=== PATIENT | male | born 1935 | race Caucasian/White ===

== ENCOUNTER 2017-10-03 18:14 | Inpatient (IN) ==
[2017-10-03] MEDS ORDERED: Sod Chloride 0.9% Inj 1,000 ML IV.SIG ONE ×2 (18:31→23:44)
[2017-10-03] MEDS ORDERED: Naloxone Inj 2 MG/2 ML Vial ONE (18:54)
[2017-10-03 19:30] LABS: Activated Partial Thrombo Time 26.8 sec (24.3-30.1); INR 2.3 Ratio; Prothrombin Time 23.5 sec (9.8-11.6)
[2017-10-03 19:40] LABS: Amphetamine Screen,Urine Neg (Neg); Barbiturate Screen,Urine Neg (Neg); Cannabinoid Screen,Urine Neg (Neg); Cocaine Screen,Urine Neg (Neg)
[2017-10-03 19:47] LABS: Amorphous Sediment,Urine Few /hpf; Bacteria,Urine Occasional /hpf; Bilirubin,Urine Negative (Negative); Clarity,Urine Cloudy (Clear); Color,Urine Amber (Yellw/Straw); Glucose,Urine (UA) 50 mg/dL (Negative); Hyaline Casts,Urine INNUM /lpf (0-3); Leukocyte Esterase,Urine Negative (Negative); Mucus,Urine Few /lpf (Occasional); Nitrite,Urine Negative (Negative); Specific Gravity,Urine 1.019 (1.002-1.035); Squamous Epithelial Cell,Urine 1 /hpf (0-5)
--- NOTE | 2017-10-03 19:47 | CT ---
EXAM DATE: 10/03/2017 7:38 PM EDT AGE/SEX: 89 years / Male INDICATIONS: Altered mental status. Found on floor. CLINICAL DATA: This is the patient's initial encounter. Patient reports that signs and symptoms have been present for 1 day and indicates a pain score of Nonresponsive. MEDICAL/SURGICAL HISTORY: Non-responsive. Non-responsive. RADIATION DOSE: 45.65 CTDI (mGy) COMPARISON: No prior exams available for comparison. TECHNIQUE: CT of the head without contrast. Using automated exposure control and adjustment of the mA and/or kV according to patient size, radiation dose was kept as low as reasonably achievable to ob tain optimal diagnostic quality images. DICOM format image data is available electronically for revi ew and comparison. FINDINGS: There is moderate motion on the original scan and a second acquisition was performed which demonstrates motion at different levels. The study is diagnostic for gross abnormalities. Cerebrum: The ventricles, sulci, and basal cisterns are prominent, characteristic of moderate severi ty central and cortical atrophy.. No evidence of midline shift, mass lesion, hemorrhage or acute inf arction. No extraaxial fluid collections are seen. Posterior Fossa: The cerebellum and brainstem are intact. The 4th ventricle is midline. The cerebe llopontine angle is unremarkable. Extracranial: The visualized portion of the orbits is intact. Skull: The calvaria is intact. No evidence of skull fracture. CONCLUSION: 1. Moderate moderate severity central cortical atrophy. No acute findings in the brain. . Electronically signed by: Fili Killian MD 10/03/2017 7:46 PM EDT
[2017-10-03 19:53] LABS: Alanine Aminotransferase 1898 U/L (12-78); Albumin 3.6 g/dL (3.4-5.0); Alkaline Phosphatase 33 U/L (45-117); Anion Gap 22 meq/L (5-15); Aspartate Aminotransferase 2566 U/L (15-37); Blood Urea Nitrogen 67 mg/dL (7-18); Calcium 8.7 mg/dL (8.5-10.1); Carbon Dioxide 13.4 meq/L (21.0-32.0); Chloride 112 meq/L (98-107); Creatine Kinase 777 U/L (39-308); Glomerular Filtration Rate 20 mL/min (>89); Glucose,Random 85 mg/dL (74-106); Potassium 5.1 meq/L (3.5-5.1); Sodium 147 meq/L (136-145); Thyroid Stimulating Hormone 0.768 uIU/mL (0.358-3.740); Total Protein 6.3 g/dL (6.4-8.2)
[2017-10-03 19:54] LABS: Opiate Screen,Urine Neg (Neg)
--- NOTE | 2017-10-03 20:04 | CT ---
EXAM DATE: 10/03/2017 7:47 PM EDT AGE/SEX: 89 years / Male INDICATIONS: Altered mental status. Found on floor. CLINICAL DATA: This is the patient's initial encounter. Patient reports that signs and symptoms have been present for 1 day and indicates a pain score of Nonresponsive. MEDICAL/SURGICAL HISTORY: Non-responsive. Non-responsive. RADIATION DOSE: 12.65 CTDI (mGy) ; Combined studies COMPARISON: No prior exams available for comparison. TECHNIQUE: Multiple contiguous axial images were obtained through the abdomen. Images were obtained using multiple row detector helical technique. Using automated exposure control and adjustment of the mA and/or kV according to patient size, radiation dose was kept as low as reasonably achievable to o btain optimal diagnostic quality images. DICOM format image data is available electronically for rev iew and comparison. FINDINGS: Lower Lungs: Bilateral pleural effusions, large on the right and small on the left. Liver: The liver has a homogeneous density without space-occupying lesion for noncontrast technique. There is no dilation of the biliary tree. Spleen: Homogeneous density without enlargement. Pancreas: Unremarkable without mass or calcification. Kidneys: Nonobstructing 4 mm stone lower pole on the right side. No evidence of hydronephrosis. 1.5 cm right upper pole cyst. On the left side, there are multiple varying size cysts, the largest of whi ch measures 6.6 cm. There is a thin curvilinear calcification within the wall of one of the cysts (Inocencio sniak 2) Adrenal Glands: Unremarkable. Aorta: Saccular infrarenal abdominal aortic aneurysm measuring 3.7 cm in AP dimension. Soft tissues about the aorta are intact. There are diffuse arteriosclerotic calcifications the wall of the aorta and iliac vessels Bowel/Mesentery: No dilated loops of small or large bowel. Multiple diverticula in the sigmoid colon . No evidence of free fluid. Abdominal Wall: Intact. Retroperitoneum: No evidence of adenopathy in the retrocrural, para-aortic, or deep pelvic regions. Bladder: Alberto catheter in nondistended bladder. Reproductive Organs: No abnormal masses or calcifications seen. Inguinal: Small fat-containing left inguinal hernia. Bony Structures: Unremarkable. CONCLUSION: 1. Bilateral pleural effusions, right greater than left. 2. Nonobstructing 4 mm stone in the right renal collecting system. 3. 3.7 cm infrarenal abdominal aortic aneurysm. 4. Small fat-containing left inguinal hernia. Electronically signed by: Fili Kililan MD 10/03/2017 8:03 PM EDT
[2017-10-03 20:06] LABS: CKMB Percent 1.6 % (0.0-4.0); Creatine Kinase MB 12.3 ng/mL (0.5-3.6)
--- NOTE | 2017-10-03 20:08 | CT ---
EXAM DATE: 10/03/2017 7:46 PM EDT AGE/SEX: 89 years / Male INDICATIONS: Altered mental status. Found on floor. CLINICAL DATA: This is the patient's initial encounter. Patient reports that signs and symptoms have been present for 1 day and indicates a pain score of Nonresponsive. MEDICAL/SURGICAL HISTORY: Non-responsive. Non-responsive. RADIATION DOSE: 26.65 CTDI (mGy) COMPARISON: No prior exams available for comparison. TECHNIQUE: Contiguous axial images were obtained using helical multirow detector technique. The vol umetric data was post-processed with multiplanar reconstruction in oblique axial, sagittal, and coron al planes. Using automated exposure control and adjustment of the mA and/or kV according to patient s ize, radiation dose was kept as low as reasonably achievable to obtain optimal diagnostic quality tawnya ges. DICOM format image data is available electronically for review and comparison. FINDINGS: There is hyperextension of the cervical lordosis. Vertebral body height is maintained. Spondylolisthe sis. There is advanced hypertrophic changes in the facet joints of the mid and lower cervical spine, right more severe than left. No evidence of locked or perched facets. The atlantoaxial articulation i s intact.. C2-3: No fracture seen. The neural foramina are patent. C3-4: No fracture seen. Severe bilateral bony neural foraminal stenosis. C4-5: No fracture seen. Severe right-sided bony neural foraminal stenosis. C5-6: No fracture seen. The neural foramina are patent. C6-7: No fracture seen. The neural foramina are patent. C7-T1: No fracture seen. The neural foramina are patent. CONCLUSION: 1. No evidence of compression deformity, fracture, or spondylolisthesis. 2. Advanced hypertrophic degenerative changes in the facet joints, more severe on the right. Electronically signed by: Fili Killian MD 10/03/2017 8:07 PM EDT
[2017-10-03 20:13] LABS: Troponin I 6.68 ng/mL (0.02-0.05)
--- NOTE | 2017-10-03 20:28 | CT ---
EXAM DATE: 10/03/2017 7:47 PM EDT AGE/SEX: 89 years / Male INDICATIONS: Altered mental status. Found on floor. CLINICAL DATA: This is the patient's initial encounter. Patient reports that signs and symptoms have been present for 1 day and indicates a pain score of Nonresponsive. MEDICAL/SURGICAL HISTORY: Non-responsive. Non-responsive. RADIATION DOSE: 12.65 CTDI (mGy) ; Combined studies COMPARISON: No prior exams available for comparison. TECHNIQUE: Multiple contiguous axial images were obtained through the chest without contrast. Image s were obtained in suspended respiration using multiple row detector helical technique. Using automa elías exposure control and adjustment of the mA and/or kV according to patient size, radiation dose was kept as low as reasonably achievable to obtain optimal diagnostic quality images. DICOM format imag e data is available electronically for review and comparison. FINDINGS: Lungs: No infiltrates or masses seen. There is marked 2 calcified granuloma in the lower right lung, the larger measuring 5 mm. No evidence of pneumothorax. Mediastinum: There is good visualization of the great vessels of the middle mediastinum. No evidenc e of mediastinal or hilar adenopathy/mass. Pleurae: There is a large right pleural effusion extending from base to apex measuring 5.2 cm in AP dimension. There is a small left pleural effusion with blunting of the costophrenic angle and extendi ng into the mid chest measuring up to 11 mm in AP dimension. Axillae: Unremarkable. Bony Structures: No fractures seen. Moderate severity degenerative changes in both sternoclavicular joints, right greater than left with vacuum phenomenon on the right side.. Miscellaneous: There are a few small flecks of gas in the soft tissues posterior to the medial clavic les bilaterally. CONCLUSION: 1. Large right and small left pleural effusion. 2. No fracture seen. No evidence of pneumothorax. Electronically signed by: Fili Killian MD 10/03/2017 8:26 PM EDT
--- NOTE | 2017-10-03 20:32 | XR ---
EXAM DATE: 10/03/2017 8:17 PM EDT AGE/SEX: 89 years / Male INDICATIONS: Trauma to chest post fall today CLINICAL DATA: This is the patient's initial encounter. Patient reports that signs and symptoms have been present for 1 day and indicates a pain score of Nonresponsive. MEDICAL/SURGICAL HISTORY: Non-responsive. Non-responsive. COMPARISON: No prior exams available for comparison. FINDINGS: There is prominent opacity in the lateral one half of the right chest extending from base to apex sug gestive of a large right pleural effusion. There is no blunting of the costophrenic angle however. In the left chest, there is loss of delineation left hemidiaphragm. The patient is rotated towards the left and the configuration of the mediastinum is appropriate for such. 2 calcifications project over the right mid chest. CONCLUSION: Large right pleural effusion. Parenchymal opacity at the left base could represent pleural effusion o r consolidation. No pneumothorax seen. Electronically signed by: Fili Killian MD 10/03/2017 8:31 PM EDT
--- NOTE | 2017-10-03 20:33 | XR ---
EXAM DATE: 10/03/2017 8:18 PM EDT AGE/SEX: 89 years / Male INDICATIONS: Right hip pain post fall today CLINICAL DATA: This is the patient's initial encounter. Patient reports that signs and symptoms have been present for 1 day and indicates a pain score of Nonresponsive. MEDICAL/SURGICAL HISTORY: Non-responsive. Non-responsive. COMPARISON: No prior exams available for comparison. FINDINGS: 2 view examination of the right hip demonstrates intact cortex and intact trabecula pattern of the fe moral neck. Mild degenerative changes are present in the hip joint. No radiopaque foreign bodies. CONCLUSION: No fracture seen. Electronically signed by: Fili Killian MD 10/03/2017 8:31 PM EDT
--- NOTE | 2017-10-03 20:35 | XR ---
EXAM DATE: 10/03/2017 8:23 PM EDT AGE/SEX: 89 years / Male INDICATIONS: Trauma to lower back post fall today CLINICAL DATA: This is the patient's initial encounter. Patient reports that signs and symptoms have been present for 1 day and indicates a pain score of Nonresponsive. MEDICAL/SURGICAL HISTORY: Non-responsive. Non-responsive. COMPARISON: No prior exams available for comparison. FINDINGS: Abnormal. There is a 60% compression deformity of the anterior one half of the L2 vertebral body with angulated inferior endplate. There is reversal of the lumbar lordosis at the L1-L3 level, but no ret ropulsed fragments seen. The left pedicle is not identified on the frontal view. No other compression deformities seen. Bridging paravertebral ossification is present at T12-L1 and L1 to. Moderate sever ity degenerative changes in the posterior elements and endplates in the lower lumbar spine. Vascular calcification is seen in the aorta and iliac vessels. CONCLUSION: 60% anterior compression fracture of L2. No retropulsed fragments seen. Electronically signed by: Fili Killian MD 10/03/2017 8:33 PM EDT
--- NOTE | 2017-10-03 20:38 | XR ---
EXAM DATE: 10/03/2017 8:19 PM EDT AGE/SEX: 89 years / Male INDICATIONS: Bruising to right elbow post fall today CLINICAL DATA: This is the patient's initial encounter. Patient reports that signs and symptoms have been present for 1 day and indicates a pain score of Nonresponsive. MEDICAL/SURGICAL HISTORY: Non-responsive. Non-responsive. COMPARISON: No prior exams available for comparison. FINDINGS: Bony structures are intact and in normal alignment. Joints are intact without dislocation or signifi cant arthropathy. No fractures about the elbow. No evidence of elbow effusion. Osseous density is no rmal. Soft tissues are unremarkable. No radiopaque foreign bodies seen. Angiocath in the antecubita l fossa. CONCLUSION: There is discontinuity of the tip of a small olecranon spur without soft tissue swelling. Cannot excl ude a fracture. Recommend correlation with clinical exam for point tenderness in this area. Electronically signed by: Fili Killian MD 10/03/2017 8:37 PM EDT
[2017-10-03 20:55] LABS: Baso % (Auto) 0.1 % (0.0-2.0); Hemoglobin 15.3 gm/dL (13.0-17.0); Lymph # (Auto) 0.6 th/mm3 (1.0-4.8); Lymph % (Auto) 4.6 % (9.0-44.0); Mean Corpuscular HGB Conc 31.9 % (32.0-36.0); Mean Corpuscular Volume 97.3 fL (80.0-100.0); Mean Platelet Volume 11.7 fL (7.0-11.0); Mono # (Auto) 1.3 th/mm3 (0.0-0.9); Mono % (Auto) 10.3 % (0.0-8.0); Neut # (Auto) 10.9 th/mm3 (1.8-7.7); Platelet Count 60 th/mm3 (150-450); Red Blood Count 4.94 mil/mm3 (4.50-5.90); Red Cell Distribution Width 15.7 % (11.6-17.2); White Blood Count 12.8 th/mm3 (4.0-11.0)
[2017-10-03 21:43] LABS: Lymphocytes 3 % (9-44); Monocytes 7 % (0-8); Toxic Granulation 2+
[2017-10-03 21:45] LABS: Ovalocytes 1+; Spherocytes Occ
--- NOTE | 2017-10-03 22:13 | ED ---
HPI General Chief Complaint: Altered Mental Status Stated Complaint: AMS Time Seen by Provider: 10/03/17 18:31 Source: EMS and RN notes reviewed Mode of arrival: EMS Limitations: altered mental status History of Present Illness HPI narrative: The patient is an elderly male of unknown medical history arrived as Mario Schmidt after he was found in his apartment with his door open and unresponsive laying on the floor with bumps and bruises on head and upper and lower extremities as well as the right hip area. Patient was unresponsive initially and does respond to boisterous voice commands as well as sternal rub but is incoherent and appears to be severely dehydrated. He denied any pain however again he is altered. MD complaint: altered mental status Onset (ago): unknown Related Data Home Medications Medication Instructions Recorded Confirmed Unable to Obtain Home Meds 10/03/17 10/03/17 Allergies Allergy/AdvReac Type Severity Reaction Status Date / Time No Allergy Information Allergy Unverified 10/03/17 18:31 Available Review of Systems ROS Unobtainable ROS Unobtainable: unobtainable due to mental status PMFSH Social History Social History Substance History: Unable to Obtain Smoking Status: Unknown if ever smoked How Often Do You Have a Drink Containing Alcohol: Unable to Obtain Immunization History Tetanus Immunization: Unable to Assess Exam Const Nutritional Appearance: cachectic Orientation: obtunded Limitations: altered mental status HENMT Head: other (Head contusion with scab on top of the scalp.) Face and sinus: dry mucous membranes Eyes General: appearance normal, both eyes and all related structures Pupils: PERRL EOM: EOM intact bilaterally Neck Neck: normal visual inspection and full ROM Chest Chest: normal inspection of the chest Resp Effort & Inspection: no pursed lip breathing, no respiratory distress, no stridor, tachypneic, no tracheal deviation and no use of accessory muscles Auscultation: clear to auscultation bilaterally Cardio Jugular venous pressure: no JVD Palpation: normal PMI Rate: tachycardic Rhythm: regular rhythm Heart Sounds: S1 normal and S2 normal GI Inspection: normal to inspection Palpation: soft and no hepatosplenomegaly Auscultation: normal bowel sounds Rectal Exam: normal sphincter tone Back/Spine/Pelvis Thoracic/Lumbar Spine: other (Ecchymosis over the lumbar spine) Skin Other: Multiple excoriations and bruises on upper and lower extremities. He has got a small skin tear on left forearm. Right elbow with abrasions. Contusion and soft tissue swelling on right hip area and ecchymosis of the lumbar spine abrasion and wounds at the various healing stages on top of his scalp and posterior scalp Neuro Other: Unable to fully assess neurologically however the patient appears to move all extremities without signs of focal neurologic deficit. He does open eyes and tries to respond to voice commands however his responses are incoherent. Course Hospital Course: Patient with altered mental status meeting service/Q sulfa criteria on arrival. Septic workup was initiated. CT of the head was obtained due to altered mental status and was negative for intracranial acute processes. He does have small left and right pleural effusions on CT chest without any other abnormalities. CT abdomen and pelvis was obtained and revealed a compression fraction at L2. 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 Right elbow with equivocal findings for possible olecranon spur versus fracture. He has got a markedly elevated lactate at 8.3 and repeat was 6.5. Troponin also elevated at 6.8. Worrisome findings on EKG for possible STEMI that was discussed with interventional cardiology adult nurse practitioner appears to be a ventricular delay. EKG was repeated and was unremarkable. Markedly elevated BUN at 67 and AK I with a creatinine of 2.7. He received several liters of normal saline. Patient in multiorgan failure with elevated creatinine, elevated troponin, elevated liver enzymes, elevated lactate. He is not a candidate for cardiac cath we cannot give him aspirin nor put him on heparin due to low platelets. Reevaluation(s) Reevaluation #1: Patient hemodynamically stable mentation still at unchanged but he does open eyes and tries to respond to questions. Time: 19:59 Reevaluation #2: Hemodynamically stable blood pressure 130/84 pulse is 100. Patient does respond to voice command but he is incoherent. Time: 22:13 Consultations Consultation #1: Dr. Jaimes cardiology was consulted. Findings discussed. Patient is not a candidate for a cardiac labor operator and he does not have a STEMI however he does have elevated troponin he cannot receive aspirin old heparin due to elevated PT and low platelets as per territory sales manager consultation. will admit to the ICU continue hydration and antibiotics. Time: 22:12 Consultation #2: Pipe Testing Technician agrees with plan of care will lead to admit the patient. Time: 22:20 Initial Documented Vital Signs Temperature 99.1 F 10/03/17 18:31 Pulse Rate 111 H 10/03/17 18:31 Respiratory Rate 20 10/03/17 18:31 Blood Pressure 128/57 L 10/03/17 18:31 Pulse Oximetry 98 10/03/17 18:31 Last Documented Vital Signs Temperature 98.4 F 10/04/17 03:00 Pulse Rate 88 10/04/17 03:00 Respiratory Rate 31 H 10/04/17 04:00 Blood Pressure 124/83 10/04/17 03:00 Pulse Oximetry 98 10/04/17 03:00 Critical Care Time Critical Care Time: Yes Total Critical Care Time: 60 Attestation: Aggregate critical care time was [-] minutes. Time to perform other separately billable procedures was not included in the critical care time. My time did not include minutes spent treating any other patients simultaneously or on activities that did not directly contribute to the patient's treatment. The services I provided to this patient were to treat and/or prevent clinically significant deterioration that could result in: Cardiopulmonary collapse , respiratory failure , liver failure permanent disability and/or I provided critical care services requiring my management, as noted below: Chart data review, documentation time, medication orders and management, vital sign assessments/reviewing monitor data, ordering and reviewing lab tests, ordering and interpreting/reviewing x-rays and diagnostic studies, care of the patient and discussion of the patient with the admitting physicians. Medical Decision Making MDM Narrative Medical Screen Exam Complete: Yes Emergency Medical Condition: Yes Lab Data Lab results reviewed: Yes I reviewed the patient's lab results. Result diagrams: 10/03/17 19:25 10/03/17 18:45 Lab Results 10/03/17 10/03/17 10/03/17 Range/Units 18:45 18:45 18:45 WBC (4.0-11.0) th/mm3 RBC (4.50-5.90) mil/mm3 Hgb (13.0-17.0) gm/dL Hct (39.0-51.0) % MCV (80.0-100.0) fL MCH (27.0-34.0) pg MCHC (32.0-36.0) % RDW (11.6-17.2) % Plt Count (150-450) th/mm3 MPV (7.0-11.0) fL Prelim Diff (Auto) Neut % (Auto) (16.0-70.0) % Lymph % (Auto) (9.0-44.0) % Fallon % (Auto) (0.0-8.0) % Eos % (Auto) (0.0-4.0) % Baso % (Auto) (0.0-2.0) % Neut # (Auto) (1.8-7.7) th/mm3 Lymph # (Auto) (1.0-4.8) th/mm3 Fallon # (Auto) (0.0-0.9) th/mm3 Eos # (Auto) (0.0-0.4) th/mm3 Baso # (Auto) (0.0-0.2) th/mm3 WBC Differential Seg Neuts % (Manual) (16-70) % Band Neuts % (Manual) (0-6) % Lymphocytes % (Manual) (9-44) % Monocytes % (Manual) (0-8) % Abs Neuts (Manual) (1.8-7.7) th/mm3 Differential Comment Toxic Granulation (None) Platelet Estimate (Normal) Platelet Morphology (Normal) Basophilic Stippling (None) Spherocytes (None) Ovalocytes (None) PT 23.5 H (9.8-11.6) sec INR 2.3 Ratio APTT 26.8 (24.3-30.1) sec Puncture Site Patient Temperature O2 Saturation (90-100) % ABG pH (7.380-7.420) ABG pCO2 (38-42) mmHg ABG pO2 (61-120) mmHg ABG HCO3 (22-26) mmol/L ABG O2 Content (12.0-20.0) Vol % ABG Base Excess (-2-2) mmol/L ABG Methemoglobin (0-2) % Hemoglobin (12.0-16.0) G/DL Carboxyhemoglobin (0-4) % O2 Delivery Device Liter Flow L/M Critical Value Sodium (136-145) meq/L Potassium (3.5-5.1) meq/L Chloride (98-107) meq/L Carbon Dioxide (21.0-32.0) meq/L Anion Gap (5-15) meq/L BUN (7-18) mg/dL Creatinine (0.60-1.30) mg/dL Estimated GFR (>89) mL/min POC Glucose (68-110) mg/dl Random Glucose (74-106) mg/dL Lactic Acid (0.4-2.0) mmol/L Calcium (8.5-10.1) mg/dL Total Bilirubin (0.2-1.0) mg/dL AST (15-37) U/L ALT (12-78) U/L Alkaline Phosphatase (45-117) U/L Ammonia (11-32) mcmol/L Total Creatine Kinase (39-308) U/L CK-MB (CK-2) (0.5-3.6) ng/mL CK-MB (CK-2) % (0.0-4.0) % Troponin I (0.02-0.05) ng/mL Total Protein (6.4-8.2) g/dL Albumin (3.4-5.0) g/dL TSH Cancelled Urine Color (Yellw/Straw) Urine Clarity (Clear) Urine pH (5.0-8.5) Ur Specific Diagonal (1.002-1.035) Urine Protein (Neg-Trace) mg/dL Urine Glucose (UA) (Negative) mg/dL Urine Ketones (Negative) mg/dL Urine Occult Blood (Negative) Urine Nitrate (Negative) Urine Bilirubin (Negative) Urine Urobilinogen (Less than 2) mg/dL Ur Leukocyte Esterase (Negative) Urine RBC (0-3) /hpf Urine WBC (0-5) /hpf Ur Squamous Epith Cells (0-5) /hpf Amorphous Sediment (None) /hpf Urine Bacteria (None) /hpf Hyaline Casts (0-3) /lpf Granular Casts (None) /lpf Urine Mucus (Occasional) /lpf Micro UA Comment Ur Microscopic Review Urine Culture Comments Salicylates Less than 1.7 L (2.8-20.0) mg/dL Urine Opiates Screen (Neg) Ur Barbiturates Screen (Neg) Ur Amphetamines Screen (Neg) U Benzodiazepines Scrn (Neg) Urine Cocaine Screen (Neg) U Cannabinoids Screen (Neg) Serum Alcohol Cancelled Blood Type Antibody Screen 10/03/17 10/03/17 10/03/17 Range/Units 18:45 18:45 18:45 WBC (4.0-11.0) th/mm3 RBC (4.50-5.90) mil/mm3 Hgb (13.0-17.0) gm/dL Hct (39.0-51.0) % MCV (80.0-100.0) fL MCH (27.0-34.0) pg MCHC (32.0-36.0) % RDW (11.6-17.2) % Plt Count (150-450) th/mm3 MPV (7.0-11.0) fL Prelim Diff (Auto) Neut % (Auto) (16.0-70.0) % Lymph % (Auto) (9.0-44.0) % Fallon % (Auto) (0.0-8.0) % Eos % (Auto) (0.0-4.0) % Baso % (Auto) (0.0-2.0) % Neut # (Auto) (1.8-7.7) th/mm3 Lymph # (Auto) (1.0-4.8) th/mm3 Fallon # (Auto) (0.0-0.9) th/mm3 Eos # (Auto) (0.0-0.4) th/mm3 Baso # (Auto) (0.0-0.2) th/mm3 WBC Differential Seg Neuts % (Manual) (16-70) % Band Neuts % (Manual) (0-6) % Lymphocytes % (Manual) (9-44) % Monocytes % (Manual) (0-8) % Abs Neuts (Manual) (1.8-7.7) th/mm3 Differential Comment Toxic Granulation (None) Platelet Estimate (Normal) Platelet Morphology (Normal) Basophilic Stippling (None) Spherocytes (None) Ovalocytes (None) PT (9.8-11.6) sec INR Ratio APTT (24.3-30.1) sec Puncture Site Patient Temperature O2 Saturation (90-100) % ABG pH (7.380-7.420) ABG pCO2 (38-42) mmHg ABG pO2 (61-120) mmHg ABG HCO3 (22-26) mmol/L ABG O2 Content (12.0-20.0) Vol % ABG Base Excess (-2-2) mmol/L ABG Methemoglobin (0-2) % Hemoglobin (12.0-16.0) G/DL Carboxyhemoglobin (0-4) % O2 Delivery Device Liter Flow L/M Critical Value Sodium 147 H (136-145) meq/L Potassium 5.1 (3.5-5.1) meq/L Chloride 112 H (98-107) meq/L Carbon Dioxide 13.4 L (21.0-32.0) meq/L Anion Gap 22 H (5-15) meq/L BUN 67 H (7-18) mg/dL Creatinine 2.71 H (0.60-1.30) mg/dL Estimated GFR 20 L (>89) mL/min POC Glucose (68-110) mg/dl Random Glucose 85 (74-106) mg/dL Lactic Acid (0.4-2.0) mmol/L Calcium 8.7 (8.5-10.1) mg/dL Total Bilirubin 3.3 H (0.2-1.0) mg/dL AST 2566 H (15-37) U/L ALT 1898 H (12-78) U/L Alkaline Phosphatase 33 L (45-117) U/L Ammonia (11-32) mcmol/L Total Creatine Kinase 777 H Cancelled (39-308) U/L CK-MB (CK-2) 12.3 H (0.5-3.6) ng/mL CK-MB (CK-2) % 1.6 (0.0-4.0) % Troponin I 6.68 H* (0.02-0.05) ng/mL Total Protein 6.3 L (6.4-8.2) g/dL Albumin 3.6 (3.4-5.0) g/dL TSH 0.768 Urine Color (Yellw/Straw) Urine Clarity (Clear) Urine pH (5.0-8.5) Ur Specific Diagonal (1.002-1.035) Urine Protein (Neg-Trace) mg/dL Urine Glucose (UA) (Negative) mg/dL Urine Ketones (Negative) mg/dL Urine Occult Blood (Negative) Urine Nitrate (Negative) Urine Bilirubin (Negative) Urine Urobilinogen (Less than 2) mg/dL Ur Leukocyte Esterase (Negative) Urine RBC (0-3) /hpf Urine WBC (0-5) /hpf Ur Squamous Epith Cells (0-5) /hpf Amorphous Sediment (None) /hpf Urine Bacteria (None) /hpf Hyaline Casts (0-3) /lpf Granular Casts (None) /lpf Urine Mucus (Occasional) /lpf Micro UA Comment Ur Microscopic Review Urine Culture Comments Salicylates (2.8-20.0) mg/dL Urine Opiates Screen (Neg) Ur Barbiturates Screen (Neg) Ur Amphetamines Screen (Neg) U Benzodiazepines Scrn (Neg) Urine Cocaine Screen (Neg) U Cannabinoids Screen (Neg) Serum Alcohol Less than 3 Blood Type B Positive Antibody Screen Negative 10/03/17 10/03/17 10/03/17 Range/Units 18:50 18:50 19:00 WBC (4.0-11.0) th/mm3 RBC (4.50-5.90) mil/mm3 Hgb (13.0-17.0) gm/dL Hct (39.0-51.0) % MCV (80.0-100.0) fL MCH (27.0-34.0) pg MCHC (32.0-36.0) % RDW (11.6-17.2) % Plt Count (150-450) th/mm3 MPV (7.0-11.0) fL Prelim Diff (Auto) Neut % (Auto) (16.0-70.0) % Lymph % (Auto) (9.0-44.0) % Fallon % (Auto) (0.0-8.0) % Eos % (Auto) (0.0-4.0) % Baso % (Auto) (0.0-2.0) % Neut # (Auto) (1.8-7.7) th/mm3 Lymph # (Auto) (1.0-4.8) th/mm3 Fallon # (Auto) (0.0-0.9) th/mm3 Eos # (Auto) (0.0-0.4) th/mm3 Baso # (Auto) (0.0-0.2) th/mm3 WBC Differential Seg Neuts % (Manual) (16-70) % Band Neuts % (Manual) (0-6) % Lymphocytes % (Manual) (9-44) % Monocytes % (Manual) (0-8) % Abs Neuts (Manual) (1.8-7.7) th/mm3 Differential Comment Toxic Granulation (None) Platelet Estimate (Normal) Platelet Morphology (Normal) Basophilic Stippling (None) Spherocytes (None) Ovalocytes (None) PT (9.8-11.6) sec INR Ratio APTT (24.3-30.1) sec Puncture Site Patient Temperature O2 Saturation (90-100) % ABG pH (7.380-7.420) ABG pCO2 (38-42) mmHg ABG pO2 (61-120) mmHg ABG HCO3 (22-26) mmol/L ABG O2 Content (12.0-20.0) Vol % ABG Base Excess (-2-2) mmol/L ABG Methemoglobin (0-2) % Hemoglobin (12.0-16.0) G/DL Carboxyhemoglobin (0-4) % O2 Delivery Device Liter Flow L/M Critical Value Sodium (136-145) meq/L Potassium (3.5-5.1) meq/L Chloride (98-107) meq/L Carbon Dioxide (21.0-32.0) meq/L Anion Gap (5-15) meq/L BUN (7-18) mg/dL Creatinine (0.60-1.30) mg/dL Estimated GFR (>89) mL/min POC Glucose (68-110) mg/dl Random Glucose (74-106) mg/dL Lactic Acid 8.3 H* (0.4-2.0) mmol/L Calcium (8.5-10.1) mg/dL Total Bilirubin (0.2-1.0) mg/dL AST (15-37) U/L ALT (12-78) U/L Alkaline Phosphatase (45-117) U/L Ammonia 29 (11-32) mcmol/L Total Creatine Kinase (39-308) U/L CK-MB (CK-2) (0.5-3.6) ng/mL CK-MB (CK-2) % (0.0-4.0) % Troponin I (0.02-0.05) ng/mL Total Protein (6.4-8.2) g/dL Albumin (3.4-5.0) g/dL TSH Urine Color Dee (Yellw/Straw) Urine Clarity Cloudy H (Clear) Urine pH 5.0 (5.0-8.5) Ur Specific Diagonal 1.019 (1.002-1.035) Urine Protein 100 H (Neg-Trace) mg/dL Urine Glucose (UA) 50 (Negative) mg/dL Urine Ketones Negative (Negative) mg/dL Urine Occult Blood Moderate H (Negative) Urine Nitrate Negative (Negative) Urine Bilirubin Negative (Negative) Urine Urobilinogen Less than 2 (Less than 2) mg/dL Ur Leukocyte Esterase Negative (Negative) Urine RBC 2 (0-3) /hpf Urine WBC 4 (0-5) /hpf Ur Squamous Epith Cells 1 (0-5) /hpf Amorphous Sediment Few H (None) /hpf Urine Bacteria Occasional H (None) /hpf Hyaline Casts Innum (0-3) /lpf Granular Casts 13 (None) /lpf Urine Mucus Few H (Occasional) /lpf Micro UA Comment Cath-culture ind Ur Microscopic Review Not Reportable Urine Culture Comments Cath-cult indicated Salicylates (2.8-20.0) mg/dL Urine Opiates Screen (Neg) Ur Barbiturates Screen (Neg) Ur Amphetamines Screen (Neg) U Benzodiazepines Scrn (Neg) Urine Cocaine Screen (Neg) U Cannabinoids Screen (Neg) Serum Alcohol Blood Type Antibody Screen 10/03/17 10/03/17 10/03/17 Range/Units 19:00 19:25 23:05 WBC 12.8 H (4.0-11.0) th/mm3 RBC 4.94 (4.50-5.90) mil/mm3 Hgb 15.3 (13.0-17.0) gm/dL Hct 48.0 (39.0-51.0) % MCV 97.3 (80.0-100.0) fL MCH 31.0 (27.0-34.0) pg MCHC 31.9 L (32.0-36.0) % RDW 15.7 (11.6-17.2) % Plt Count 60 L (150-450) th/mm3 MPV 11.7 H (7.0-11.0) fL Prelim Diff (Auto) Slide review pending Neut % (Auto) 85.0 H (16.0-70.0) % Lymph % (Auto) 4.6 L (9.0-44.0) % Fallon % (Auto) 10.3 H (0.0-8.0) % Eos % (Auto) 0.0 (0.0-4.0) % Baso % (Auto) 0.1 (0.0-2.0) % Neut # (Auto) 10.9 H (1.8-7.7) th/mm3 Lymph # (Auto) 0.6 L (1.0-4.8) th/mm3 Fallon # (Auto) 1.3 H (0.0-0.9) th/mm3 Eos # (Auto) 0.0 (0.0-0.4) th/mm3 Baso # (Auto) 0.0 (0.0-0.2) th/mm3 WBC Differential Manual diff final Seg Neuts % (Manual) 87 H (16-70) % Band Neuts % (Manual) 3 (0-6) % Lymphocytes % (Manual) 3 L (9-44) % Monocytes % (Manual) 7 (0-8) % Abs Neuts (Manual) 11.5 H (1.8-7.7) th/mm3 Differential Comment . Toxic Granulation 2+ H (None) Platelet Estimate Low L (Normal) Platelet Morphology Enlarged H (Normal) Basophilic Stippling Faint H (None) Spherocytes Occ H (None) Ovalocytes 1+ H (None) PT (9.8-11.6) sec INR Ratio APTT (24.3-30.1) sec Puncture Site Patient Temperature O2 Saturation (90-100) % ABG pH (7.380-7.420) ABG pCO2 (38-42) mmHg ABG pO2 (61-120) mmHg ABG HCO3 (22-26) mmol/L ABG O2 Content (12.0-20.0) Vol % ABG Base Excess (-2-2) mmol/L ABG Methemoglobin (0-2) % Hemoglobin (12.0-16.0) G/DL Carboxyhemoglobin (0-4) % O2 Delivery Device Liter Flow L/M Critical Value Sodium (136-145) meq/L Potassium (3.5-5.1) meq/L Chloride (98-107) meq/L Carbon Dioxide (21.0-32.0) meq/L Anion Gap (5-15) meq/L BUN (7-18) mg/dL Creatinine (0.60-1.30) mg/dL Estimated GFR (>89) mL/min POC Glucose (68-110) mg/dl Random Glucose (74-106) mg/dL Lactic Acid 6.9 H* (0.4-2.0) mmol/L Calcium (8.5-10.1) mg/dL Total Bilirubin (0.2-1.0) mg/dL AST (15-37) U/L ALT (12-78) U/L Alkaline Phosphatase (45-117) U/L Ammonia (11-32) mcmol/L Total Creatine Kinase (39-308) U/L CK-MB (CK-2) (0.5-3.6) ng/mL CK-MB (CK-2) % (0.0-4.0) % Troponin I (0.02-0.05) ng/mL Total Protein (6.4-8.2) g/dL Albumin (3.4-5.0) g/dL TSH Urine Color (Yellw/Straw) Urine Clarity (Clear) Urine pH (5.0-8.5) Ur Specific Diagonal (1.002-1.035) Urine Protein (Neg-Trace) mg/dL Urine Glucose (UA) (Negative) mg/dL Urine Ketones (Negative) mg/dL Urine Occult Blood (Negative) Urine Nitrate (Negative) Urine Bilirubin (Negative) Urine Urobilinogen (Less than 2) mg/dL Ur Leukocyte Esterase (Negative) Urine RBC (0-3) /hpf Urine WBC (0-5) /hpf Ur Squamous Epith Cells (0-5) /hpf Amorphous Sediment (None) /hpf Urine Bacteria (None) /hpf Hyaline Casts (0-3) /lpf Granular Casts (None) /lpf Urine Mucus (Occasional) /lpf Micro UA Comment Ur Microscopic Review Urine Culture Comments Salicylates (2.8-20.0) mg/dL Urine Opiates Screen Neg (Neg) Ur Barbiturates Screen Neg (Neg) Ur Amphetamines Screen Neg (Neg) U Benzodiazepines Scrn Neg (Neg) Urine Cocaine Screen Neg (Neg) U Cannabinoids Screen Neg (Neg) Serum Alcohol Blood Type Antibody Screen 08/22/18 08/23/18 08/23/18 Range/Units 23:51 00:31 02:17 WBC (4.0-11.0) th/mm3 RBC (4.50-5.90) mil/mm3 Hgb (13.0-17.0) gm/dL Hct (39.0-51.0) % MCV (80.0-100.0) fL MCH (27.0-34.0) pg MCHC (32.0-36.0) % RDW (11.6-17.2) % Plt Count (150-450) th/mm3 MPV (7.0-11.0) fL Prelim Diff (Auto) Neut % (Auto) (16.0-70.0) % Lymph % (Auto) (9.0-44.0) % Fallon % (Auto) (0.0-8.0) % Eos % (Auto) (0.0-4.0) % Baso % (Auto) (0.0-2.0) % Neut # (Auto) (1.8-7.7) th/mm3 Lymph # (Auto) (1.0-4.8) th/mm3 Fallon # (Auto) (0.0-0.9) th/mm3 Eos # (Auto) (0.0-0.4) th/mm3 Baso # (Auto) (0.0-0.2) th/mm3 WBC Differential Seg Neuts % (Manual) (16-70) % Band Neuts % (Manual) (0-6) % Lymphocytes % (Manual) (9-44) % Monocytes % (Manual) (0-8) % Abs Neuts (Manual) (1.8-7.7) th/mm3 Differential Comment Toxic Granulation (None) Platelet Estimate (Normal) Platelet Morphology (Normal) Basophilic Stippling (None) Spherocytes (None) Ovalocytes (None) PT (9.8-11.6) sec INR Ratio APTT (24.3-30.1) sec Puncture Site Right brachial Patient Temperature 98.6 O2 Saturation 94 (90-100) % ABG pH 7.32 L (7.380-7.420) ABG pCO2 24 L* (38-42) mmHg ABG pO2 100 (61-120) mmHg ABG HCO3 12 L* (22-26) mmol/L ABG O2 Content 21.0 H (12.0-20.0) Vol % ABG Base Excess -13.3 L (-2-2) mmol/L ABG Methemoglobin 0.6 (0-2) % Hemoglobin 15.8 (12.0-16.0) G/DL Carboxyhemoglobin 0.5 (0-4) % O2 Delivery Device Nasal cannula Liter Flow 6.00 L/M Critical Value Yes Sodium (136-145) meq/L Potassium (3.5-5.1) meq/L Chloride (98-107) meq/L Carbon Dioxide (21.0-32.0) meq/L Anion Gap (5-15) meq/L BUN (7-18) mg/dL Creatinine (0.60-1.30) mg/dL Estimated GFR (>89) mL/min POC Glucose 112 H (68-110) mg/dl Random Glucose (74-106) mg/dL Lactic Acid (0.4-2.0) mmol/L Calcium (8.5-10.1) mg/dL Total Bilirubin (0.2-1.0) mg/dL AST (15-37) U/L ALT (12-78) U/L Alkaline Phosphatase (45-117) U/L Ammonia (11-32) mcmol/L Total Creatine Kinase (39-308) U/L CK-MB (CK-2) (0.5-3.6) ng/mL CK-MB (CK-2) % (0.0-4.0) % Troponin I 5.30 H* (0.02-0.05) ng/mL Total Protein (6.4-8.2) g/dL Albumin (3.4-5.0) g/dL TSH Urine Color (Yellw/Straw) Urine Clarity (Clear) Urine pH (5.0-8.5) Ur Specific Diagonal (1.002-1.035) Urine Protein (Neg-Trace) mg/dL Urine Glucose (UA) (Negative) mg/dL Urine Ketones (Negative) mg/dL Urine Occult Blood (Negative) Urine Nitrate (Negative) Urine Bilirubin (Negative) Urine Urobilinogen (Less than 2) mg/dL Ur Leukocyte Esterase (Negative) Urine RBC (0-3) /hpf Urine WBC (0-5) /hpf Ur Squamous Epith Cells (0-5) /hpf Amorphous Sediment (None) /hpf Urine Bacteria (None) /hpf Hyaline Casts (0-3) /lpf Granular Casts (None) /lpf Urine Mucus (Occasional) /lpf Micro UA Comment Ur Microscopic Review Urine Culture Comments Salicylates (2.8-20.0) mg/dL Urine Opiates Screen (Neg) Ur Barbiturates Screen (Neg) Ur Amphetamines Screen (Neg) U Benzodiazepines Scrn (Neg) Urine Cocaine Screen (Neg) U Cannabinoids Screen (Neg) Serum Alcohol Blood Type Antibody Screen Imaging Data Radiologist's impression: Chest X-Ray 10/03/17 18:31 CONCLUSION: Large right pleural effusion. Parenchymal opacity at the left base could represent pleural effusion or consolidation. No pneumothorax seen. Elbow X-Ray 10/03/17 18:31 CONCLUSION: There is discontinuity of the tip of a small olecranon spur without soft tissue swelling. Cannot exclude a fracture. Recommend correlation with clinical exam for point tenderness in this area. Hip X-Ray 10/03/17 18:31 CONCLUSION: No fracture seen. Lumbar Spine X-Ray 10/03/17 18:31 CONCLUSION: 60% anterior compression fracture of L2. No retropulsed fragments seen. Cervical Spine CT 10/03/17 18:35 CONCLUSION: 1. No evidence of compression deformity, fracture, or spondylolisthesis. 2. Advanced hypertrophic degenerative changes in the facet joints, more severe on the right. Head CT 10/03/17 18:35 CONCLUSION: 1. Moderate moderate severity central cortical atrophy. No acute findings in the brain. . Abdomen/Pelvis CT 10/03/17 18:38 CONCLUSION: 1. Bilateral pleural effusions, right greater than left. 2. Nonobstructing 4 mm stone in the right renal collecting system. 3. 3.7 cm infrarenal abdominal aortic aneurysm. 4. Small fat-containing left inguinal hernia. Chest CT 10/03/17 18:38 CONCLUSION: 1. Large right and small left pleural effusion. 2. No fracture seen. No evidence of pneumothorax. ECG Data Attestation: I personally reviewed and interpreted this ECG as follows: Discharge Plan Discharge Disposition Patient Disposition: 30 Still Patient Discharge Condition Condition: Critical Discharge Details Diagnosis: Toxic metabolic encephalopathy, Septic shock, Transaminitis, NSTEMI (non-ST elevated myocardial infarction), Thrombocytopenia, DIC (disseminated intravascular coagulation), Renal failure Physicians Team ED Provider: Chris Kumari Primary Care Provider: UNKNOWN, Attending Provider: Usha Martin Other Providers: Jon Jaimes ; Gurvinder Chavez Discharge Interventions Interventions: ED Discharge Assessment Last Done: 10/04/17 02:01 Vital Signs Last Done: 10/03/17 23:00 Status ED Status: Left Department Discharge Information Discharge Date/Time: 10/04/17 02:03
[2017-10-03] MEDS ORDERED: Bisacodyl 10 MG Supp RECTAL PRN (22:21)
[2017-10-03] MEDS ORDERED: Acetaminophen 325 MG Tablet PO PRN (22:21)
[2017-10-03] MEDS ORDERED: Sod Chloride 0.9% Inj 1,000 ML IV.CONT SCH (23:00)
[2017-10-03] MEDS ORDERED: Vancomycin Inj 1,000 MG in Sodium Chlor 0.9% Inj 250 ML IV.SIG ONE (23:43)
[2017-10-03] MEDS ORDERED: Sodium Bicarbonate 8.4% Inj 50 MEQ/50 ML Syringe IV.PUSH ONE (23:47)
--- NOTE | 2017-10-03 23:52 | P.HPCC ---
History of Present Illness Primary Care Physician: UNKNOWN Chief Complaint: Altered mental status, septic shock History of Present Illness: Patient is an elderly male with unknown past medical history who was found on the floor of his apartment with door open. Apparently neighbors checked on him and found him unresponsive on the floor. Patient was brought to the emergency department and underwent extensive workup to rule out trauma. CT of the head showed moderate to severe atrophy, CT of the chest showed moderate right-sided and small left effusion. 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 X-ray of his right elbow showed a possible olecranon spur discontinuity. Multiple lab abnormalities white count was 12.8 with 87% neutrophils platelet count 60 INR was 2.3. UA showed evidence of UTI, patient received a dose of cefepime for severe sepsis. Also his troponin was elevated at 6.8, lactic acid was 8.3 BUN 67 creatinine 2.71. Patient received 2 L normal saline boluses. Dr. Jaimes from cardiology was contacted for an STEMI. Due to poor mentation and multiorgan failure patient was deemed not a candidate for cardiac catheterization. Cannot use aspirin or heparin due to platelet count of 60,000 INR of 2.3. Other abnormal labs included transaminitis and elevated CPK. I evaluated the patient in the emergency department. He is severely encephalopathic appears critical, tachypneic but protecting airway. He is not able to say his name or mouth any words. He continues to move his head side to side but not communicative. I have added additional 2 L normal saline bolus, give 2 A of bicarb. Check ABG. Broad-spectrum antibiotics with vancomycin 1 dose and renally dosed Zosyn. Patient is very critically ill and has multiorgan failure, overall prognosis appears very poor - Diagnosis (1) Toxic metabolic encephalopathy (2) Septic shock (3) UTI (urinary tract infection) (4) Transaminitis (5) NSTEMI (non-ST elevated myocardial infarction) (6) Thrombocytopenia (7) DIC (disseminated intravascular coagulation) (8) Renal failure Review of Systems unobtainable due to mental condition PMFSH - History History Provided By: Patient - Medical / Surgical Hx Neg / Unobtainable Medical Problems Denied: Unable to Obtain - Tobacco History Smoking Status: Unknown if ever smoked - Alcohol History How Often Do You Have a Drink Containing Alcohol: Unable to Obtain - Substance Use History Substance History: Unable to Obtain - Immunization History Tetanus Immunization: Unable to Assess Medications and Allergies Active Medications: Active Medications Acetaminophen (Tylenol) 650 mg PO Q6H PRN PRN Reason: PAIN 1-10 AND/OR FEVER >101F Al Hydroxide/Mg Hydroxide (Milk Of Magnesia Liq) 30 ml PO Q12H PRN PRN Reason: Mild Constipation Albuterol (Duoneb Neb (Prn)) 1 ampul NEB Q2HR NEB PRN PRN Reason: WHEEZING Bisacodyl (Dulcolax Supp) 10 mg RECTAL DAILY PRN PRN Reason: SEVERE CONSITIPATION Chlorhexidine Gluconate (Chlorhexidine 2% Cloth) 3 pack TOPICAL DAILY@0400 JIGNA Stop: 10/09/17 03:59 Chlorhexidine Gluconate (Chlorhexidine 2% Cloth) 3 pack TOPICAL DAILY@0400 PRN PRN Reason: Extra cloth needed Stop: 10/09/17 03:59 Famotidine (Pepcid Pf Inj) 10 mg IV.PUSH Q12HR JIGNA Sodium Chloride (Ns Inj) 1,000 mls @ 84 mls/hr IV.CONT .[id number] JIGNA Last Admin: 10/03/17 23:33 Dose: 84 mls/hr Piperacillin/Tazobactam/Dextrose (Zosyn 3.375 Gm Premix) 50 mls @ 100 mls/hr IV.SIG Q8H JIGNA Vancomycin HCl 1,000 mg/ (Sodium Chloride) 250 mls @ 250 mls/hr IV.SIG ONCE ONE Stop: 10/04/17 00:42 Sodium Chloride (Ns Inj) 1,000 mls @ 0 mls/hr IV.SIG BOLUS ONE Stop: 10/03/17 23:45 Lactulose (Lactulose Liq) 30 ml PO DAILY PRN PRN Reason: SEVERE CONSITIPATION Senna/Docusate Sodium (Brigette-Colace) 1 tab PO BID [facility] Sennosides (Senokot) 17.2 mg PO Q12H PRN PRN Reason: Moderate Constipation Sodium Chloride (Ns Flush) 2 ml IV.FLUSH BID JIGNA Sodium Chloride (Ns Flush) 2 ml IV.FLUSH PRN PRN PRN Reason: FLUSH AFTER USING IV ACCESS Allergies Allergy/AdvReac Type Severity Reaction Status Date / Time No Allergy Information Allergy Unverified 10/03/17 18:31 Available Home Medications Medication Instructions Recorded Confirmed Type Unable to Obtain Home Meds 10/03/17 10/03/17 History Results - Labs CBC & Chem 7: 10/03/17 19:25 10/03/17 18:45 Labs: Short CBC 10/03/17 Range/Units 19:25 WBC 12.8 H (4.0-11.0) th/mm3 Hgb 15.3 (13.0-17.0) gm/dL Hct 48.0 (39.0-51.0) % Plt Count 60 L (150-450) th/mm3 BMP 10/03/17 18:45 Sodium 147 H Potassium 5.1 Chloride 112 H Carbon Dioxide 13.4 L BUN 67 H Creatinine 2.71 H Calcium 8.7 Cardiac Enzymes 10/03/17 10/03/17 Range/Units 18:45 18:45 Total Creatine Kinase 777 H Cancelled (39-308) U/L CK-MB (CK-2) 12.3 H (0.5-3.6) ng/mL Troponin I 6.68 H* (0.02-0.05) ng/mL Liver Function 10/03/17 Range/Units 18:45 Total Bilirubin 3.3 H (0.2-1.0) mg/dL AST 2566 H (15-37) U/L ALT 1898 H (12-78) U/L Alkaline Phosphatase 33 L (45-117) U/L Albumin 3.6 (3.4-5.0) g/dL Urine 10/03/17 Range/Units 19:00 Urine Color Dee (Yellw/Straw) Urine Clarity Cloudy H (Clear) Urine pH 5.0 (5.0-8.5) Ur Specific [place] 1.019 (1.002-1.035) Urine Protein 100 H (Neg-Trace) mg/dL Urine Glucose (UA) 50 (Negative) mg/dL - Imaging Impressions Chest X-Ray 10/03/17 18:31 CONCLUSION: Large right pleural effusion. Parenchymal opacity at the left base could represent pleural effusion or consolidation. No pneumothorax seen. Elbow X-Ray 10/03/17 18:31 CONCLUSION: There is discontinuity of the tip of a small olecranon spur without soft tissue swelling. Cannot exclude a fracture. Recommend correlation with clinical exam for point tenderness in this area. Hip X-Ray 10/03/17 18:31 CONCLUSION: No fracture seen. Lumbar Spine X-Ray 10/03/17 18:31 CONCLUSION: 60% anterior compression fracture of L2. No retropulsed fragments seen. Cervical Spine CT 10/03/17 18:35 CONCLUSION: 1. No evidence of compression deformity, fracture, or spondylolisthesis. 2. Advanced hypertrophic degenerative changes in the facet joints, more severe on the right. Head CT 10/03/17 18:35 CONCLUSION: 1. Moderate moderate severity central cortical atrophy. No acute findings in the brain. . Abdomen/Pelvis CT 10/03/17 18:38 CONCLUSION: 1. Bilateral pleural effusions, right greater than left. 2. Nonobstructing 4 mm stone in the right renal collecting system. 3. 3.7 cm infrarenal abdominal aortic aneurysm. 4. Small fat-containing left inguinal hernia. Chest CT 10/03/17 18:38 CONCLUSION: 1. Large right and small left pleural effusion. 2. No fracture seen. No evidence of pneumothorax. Exam Vital signs: Vital Signs 10/03/17 18:31 10/03/17 19:10 10/03/17 20:27 Temperature 99.1 F Pulse Rate 111 H 100 H 103 H Respiratory Rate 20 28 H 28 H Blood Pressure 128/57 L 147/71 H 130/76 Pulse Oximetry 98 95 95 10/03/17 21:26 10/03/17 23:00 Temperature Pulse Rate 101 H 99 H Respiratory Rate 30 H 24 Blood Pressure 130/84 124/67 Pulse Oximetry 98 98 Intake & Output 10/03/17 10/03/17 10/04/17 06:59 18:59 06:59 Weight 58.967 kg Narrative: GENERAL: Elderly poorly nourished disheveled male who is lying on ER gurney agitated tachypneic HEENT: Normocephalic. Atraumatic. Pupils equal, round, protecting airway NECK: Trachea is midline. There is no JVD. CHEST: Patient is tachypneic however good oxygen saturation. Air entry diminished bilaterally with scattered rhonchi CARDIOVASCULAR: Tachycardic S1-S2 normal no murmurs ABDOMEN: Soft, nontender, nondistended. MUSCULOSKELETAL: 2+ peripheral edema. Poorly perfused NEUROLOGICAL: Critically ill-appearing. His eyes are open spontaneously but appears agitated. He is thrashing his head side to side. Moves all extremities nonfocal exam but do not follow commands or does not mouth any words Septic Shock Reassessment Septic shock perfusion: reassessment completed Caprini VTE Risk Assessment Caprini VTE Risk Assessment: Moderate/High Risk (score >= 2) Caprini Risk Assessment Model: Point Value = 1 Point Value = 2 Point Value = 3 Point Value = 5 Age 41-60 Minor surgery BMI > 25 kg/m2 Swollen legs Varicose veins or History of unexplained or recurrent spontaneous Oral contraceptives or hormone replacement Sepsis (< 1 month) Serious lung disease, including pneumonia (< 1 month) Abnormal pulmonary function Acute myocardial infarction Congestive heart failure (< 1 month) History of inflammatory bowel disease Medical patient at bed rest Age 61-74 Arthroscopic surgery Major open surgery (> 45 min) Laparoscopic surgery (> 45 min) Malignancy Confined to bed (> 72 hours) Immobilizing plaster cast Central venous access Age >= 75 History of VTE Family history of VTE Factor V Leiden Prothrombin [id number] Lupus anticoagulant Anticardiolipin antibodies Elevated serum homocysteine Heparin-induced thrombocytopenia Other congenital or acquired thrombophilia Stroke (< 1 month) Elective arthroplasty Hip, pelvis, or leg fracture Acute spinal cord injury (< 1 month) Prophylaxis Regimen: Total Risk Factor Score Risk Level Prophylaxis Regimen 0-1 Low Early ambulation 2 Moderate Order ONE of the following: *Sequential Compression Device (SCD) *Heparin 5000 units SQ BID 3-4 Higher Order ONE of the following medications: *Heparin 5000 units SQ TID *Enoxaparin/Lovenox 40 mg SQ daily (WT < 150 kg, CrCl > 30 mL/min) *Enoxaparin/Lovenox 30 mg SQ daily (WT < 150 kg, CrCl > 10-29 mL/min) *Enoxaparin/Lovenox 30 mg SQ BID (WT < 150 kg, CrCl > 30 mL/min) AND/OR *Sequential Compression Device (SCD) 5 or more Highest Order ONE of the following medications: *Heparin 5000 units SQ TID (Preferred with Epidurals) *Enoxaparin/Lovenox 40 mg SQ daily (WT < 150 kg, CrCl > 30 mL/min) *Enoxaparin/Lovenox 30 mg SQ daily (WT < 150 kg, CrCl > 10-29 mL/min) *Enoxaparin/Lovenox 30 mg SQ BID (WT < 150 kg, CrCl > 30 mL/min) AND *Sequential Compression Device (SCD) Assessment and Plan - Problem List (1) Toxic metabolic encephalopathy Code(s): G92 - Toxic encephalopathy Status: Acute (2) Septic shock Code(s): A41.9 - Sepsis, unspecified organism; R65.21 - Severe sepsis with septic shock Status: Acute (3) UTI (urinary tract infection) Code(s): N39.0 - Urinary tract infection, site not specified Status: Acute (4) Transaminitis Code(s): R74.0 - Nonspecific elevation of levels of transaminase and lactic acid dehydrogenase [LDH] Status: Acute (5) NSTEMI (non-ST elevated myocardial infarction) Code(s): I21.4 - Non-ST elevation (NSTEMI) myocardial infarction Status: Acute (6) Thrombocytopenia Code(s): D69.6 - Thrombocytopenia, unspecified Status: Acute (7) DIC (disseminated intravascular coagulation) Code(s): D65 - Disseminated intravascular coagulation [defibrination syndrome] Status: Acute (8) Renal failure Code(s): N19 - Unspecified kidney failure Status: Acute - Assessment and Plan Plan: NEURO: Toxic metabolic encephalopathy L2 compression deformity/acuity unknown -Severe metabolic encephalopathy multifactorial -CT head shows moderate to severe atrophy no acute findings -Patient most likely has underlying dementia -I will not consult neurosurgery at this time due to overall very poor prognosis -Check B12 RESP: Respiratory insufficiency Severe metabolic acidosis Moderate to large right-sided effusion -ABG is pending, 2 Amps of bicarb given -DuoNeb every 6 hours scheduled and as needed -Patient has moderate to large right-sided effusion, and possibly underlying pneumonia -Unable to do thoracentesis at this time due to thrombocytopenia and coagulopathy -Aggressive pulmonary toilet CV: STEMI Lactic acidosis -Normal saline IV fluids 3L bolus and 84 ml per hour -Cardiology consult Dr. Jaimes, serial troponin. Patient is not a candidate for cardiac catheterization or PCI -Unable to use aspirin or heparin due to thrombocytopenia and coagulopathy, start IV metoprolol 2.5 mg every 6 hours -Trend lactic acid GI: Transaminitis -N.p.o., IV famotidine -Transaminitis secondary to shock liver -Ammonia level normal : Renal failure unclear acute or chronic -Monitor renal function closely. Place Alberto catheter. -IV hydration as above -2 Amps of bicarb given -Nephrology consult only if creatinine not improving ID: Septic shock Probable pneumonia UTI -Antibiotics with 1 dose of vancomycin and renally dosed Zosyn -Blood urine and sputum cultures -May need thoracentesis and further studies once coagulopathy and platelets are improved HEME: Thrombocytopenia/coagulopathy/DIC -Monitor CBC, coags -Transfuse blood products and blood as needed-currently no indication ENDO: -Electrolyte replacement per protocol PROPH: -Bilateral lower extremity SCDs. Avoid chemical DVT prophylaxis. Famotidine IV for GI prophylaxis LINES: -Utilize peripheral IVs, central line if needed CC time 55 min
[2017-10-04 00:12] LABS: ABG Base Excess -13.3 mmol/L (-2-2); ABG PCO2 24 mmHg (38-42); ABG PO2 100 mmHg (61-120)
[2017-10-04] MEDS: Metoprolol Inj 5 MG/5 ML Vial IV.PUSH SCH ×4 (00:40→17:53)
[2017-10-04] MEDS: Piperacil/Tazo 3.375 GM Premix 50 ML IV.SIG SCH ×3 (00:40→16:10)
[2017-10-04] MEDS ORDERED: Sodium Bicarbonate 8.4% Inj 150 MEQ in Dextrose 5% in Water Inj 850 ML IV.CONT SCH ×2 (01:00)
[2017-10-04] MEDS ORDERED: Chlorhexidine Gluconate 2% 1 Pack (2 Cloths) TOPICAL PRN (04:00)
[2017-10-04] MEDS: Chlorhexidine Gluconate 2% 1 Pack (2 Cloths) TOPICAL SCH (04:52)
[2017-10-04] MEDS ORDERED: Vancomycin Consult Pharmacy OTHER PRN (07:17)
[2017-10-04 07:36] LABS: Baso # (Auto) 0.1 th/mm3 (0.0-0.2); Baso % (Auto) 0.5 % (0.0-2.0); Hematocrit 48.9 % (39.0-51.0); Hemoglobin 15.8 gm/dL (13.0-17.0); Lymph # (Auto) 0.6 th/mm3 (1.0-4.8); Lymph % (Auto) 4.4 % (9.0-44.0); Mean Corpuscular HGB Conc 32.2 % (32.0-36.0); Mean Corpuscular Hemoglobin 30.8 pg (27.0-34.0); Mean Corpuscular Volume 95.7 fL (80.0-100.0); Mean Platelet Volume 11.1 fL (7.0-11.0); Mono % (Auto) 7.2 % (0.0-8.0); Neut # (Auto) 11.7 th/mm3 (1.8-7.7); Neut % (Auto) 87.9 % (16.0-70.0); Platelet Count 47 th/mm3 (150-450); Red Blood Count 5.11 mil/mm3 (4.50-5.90); Red Cell Distribution Width 15.8 % (11.6-17.2); White Blood Count 13.3 th/mm3 (4.0-11.0)
[2017-10-04 07:49] LABS: Albumin 3.2 g/dL (3.4-5.0); Anion Gap 16 meq/L (5-15); Blood Urea Nitrogen 63 mg/dL (7-18); Calcium 7.3 mg/dL (8.5-10.1); Carbon Dioxide 19.4 meq/L (21.0-32.0); Chloride 118 meq/L (98-107); Glomerular Filtration Rate 27 mL/min (>89); Glucose,Random 140 mg/dL (74-106); Potassium 3.9 meq/L (3.5-5.1); Sodium 153 meq/L (136-145)
[2017-10-04 08:21] LABS: Alanine Aminotransferase 2212 U/L (12-78); Alkaline Phosphatase 28 U/L (45-117); Aspartate Aminotransferase 2568 U/L (15-37); Phosphorus 5.9 mg/dL (2.5-4.9); Total Protein 5.5 g/dL (6.4-8.2)
[2017-10-04 08:29] LABS: Troponin I 8.31 ng/mL (0.02-0.05)
[2017-10-04 08:39] LABS: Lymphocytes 3 % (9-44); Monocytes 5 % (0-8); Tallied Nucleated RBC 3 (0-0)
[2017-10-04 08:41] LABS: Platelet Morphology Normal (Normal)
--- NOTE | 2017-10-04 09:16 | P.PNCC ---
Subjective Subjective Remarks/Hospital Course: Patient is an elderly male with unknown past medical history who was found on the floor of his apartment with door open. Apparently neighbors checked on him and found him unresponsive on the floor. Patient was brought to the emergency department and underwent extensive workup to rule out trauma. CT of the head showed moderate to severe atrophy, CT of the chest showed moderate right-sided and small left effusion. 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 X-ray of his right elbow showed a possible olecranon spur discontinuity. Multiple lab abnormalities white count was 12.8 with 87% neutrophils platelet count 60 INR was 2.3. UA showed evidence of UTI, patient received a dose of cefepime for severe sepsis. Also his troponin was elevated at 6.8, lactic acid was 8.3 BUN 67 creatinine 2.71. Patient received 2 L normal saline boluses. Dr. Jaimes from cardiology was contacted for an STEMI. Due to poor mentation and multiorgan failure patient was deemed not a candidate for cardiac catheterization. Cannot use aspirin or heparin due to platelet count of 60,000 INR of 2.3. Other abnormal labs included transaminitis and elevated CPK. I evaluated the patient in the emergency department. He is severely encephalopathic appears critical, tachypneic but protecting airway. He is not able to say his name or mouth any words. He continues to move his head side to side but not communicative. I have added additional 2 L normal saline bolus, give 2 A of bicarb. Check ABG. Broad-spectrum antibiotics with vancomycin 1 dose and renally dosed Zosyn. Patient is very critically ill and has multiorgan failure, overall prognosis appears very poor. 10/04: This morning patient is not on any pressors. He is awake, agitated at times requiring restraints. He is saying incomprehensible words. T-max of 99.1. Urine output is minimal. Objective Vital Signs / I&O: Vital Signs 10/03/17 18:31 10/03/17 19:10 10/03/17 20:27 Temperature 99.1 F Pulse Rate 111 H 100 H 103 H Respiratory Rate 20 28 H 28 H Blood Pressure 128/57 L 147/71 H 130/76 Pulse Oximetry 98 95 95 10/03/17 21:26 10/03/17 23:00 10/04/17 00:41 Temperature Pulse Rate 101 H 99 H 97 H Respiratory Rate 30 H 24 28 H Blood Pressure 130/84 124/67 127/83 Pulse Oximetry 98 98 95 10/04/17 03:00 10/04/17 04:00 10/04/17 05:00 Temperature 98.4 F Pulse Rate 88 86 91 H Respiratory Rate 44 H 31 H 30 H Blood Pressure 124/83 123/80 115/82 Pulse Oximetry 98 93 L 97 10/04/17 06:00 10/04/17 08:27 Temperature Pulse Rate 86 Respiratory Rate 20 Blood Pressure 112/75 Pulse Oximetry 97 96 Intake & Output 10/03/17 10/04/17 10/04/17 18:59 06:59 18:59 Output Total 800 / 800 Balance -800 / -800 Weight 58.967 kg 65.8 kg Output: Urine Amount (Catheter) 800 / 800 Indwelling Urethral Catheter 800 / 800 Result Diagrams: 10/04/17 07:17 10/04/17 07:17 Objective Remarks: GENERAL: Elderly gentleman, poorly nourished, disheveled, ill-appearing, very deconditioned HEENT: Normocephalic. Atraumatic. Pupils equal, round. Sclerae are mildly icteric. Neck is supple, without rigidity. No JVD. Dry mucous membranes. CHEST: Decreased breath sounds at bases. No wheezes. CARDIOVASCULAR: Regular heart sounds, without murmurs. ABDOMEN: Soft, nontender, nondistended. Bowel sounds are decreased. No hepatomegaly or splenomegaly appreciated. MUSCULOSKELETAL: Tepid. 2+ peripheral pitting edema. Pulses are present. NEUROLOGICAL: Patient is awake, but does not follow any commands. Blinks to threat. He is saying incomprehensible words. Agitated at times and appears to move both lower extremities. Assessment and Plan - Problem List (1) Toxic metabolic encephalopathy Code(s): G92 - Toxic encephalopathy Status: Acute (2) Septic shock Code(s): A41.9 - Sepsis, unspecified organism; R65.21 - Severe sepsis with septic shock Status: Acute (3) UTI (urinary tract infection) Code(s): N39.0 - Urinary tract infection, site not specified Status: Acute (4) Transaminitis Code(s): R74.0 - Nonspecific elevation of levels of transaminase and lactic acid dehydrogenase [LDH] Status: Acute (5) NSTEMI (non-ST elevated myocardial infarction) Code(s): I21.4 - Non-ST elevation (NSTEMI) myocardial infarction Status: Acute (6) Thrombocytopenia Code(s): D69.6 - Thrombocytopenia, unspecified Status: Acute (7) DIC (disseminated intravascular coagulation) Code(s): D65 - Disseminated intravascular coagulation [defibrination syndrome] Status: Acute (8) Renal failure Code(s): N19 - Unspecified kidney failure Status: Acute - Assessment and Plan Plan: 1. Acute encephalopathy, likely toxic metabolic 2. Acute [place] -troponin is trending up 3. Severe sepsis 4. UTI 5. Lactic/metabolic acidosis 6. Possible pneumonia 7. Transaminitis 8. JAVON 9. Hypernatremia 10. Coagulopathy with thrombocytopenia 11. L2 compression deformity/acuity unknown 12. Moderate to large right-sided effusion 1. Continue supplemental O2 to keep SPO2 above 92% 2. Bronchodilators 3. Continue Vanco and Zosyn 4. Stop saline and bicarb drip 5. Start LR 6. Maintain n.p.o. 7. Neurochecks 8. Cardiology follow-up 9. No aspirin and heparin due to worsening thrombocytopenia and coagulopathy 10. Continue beta-justin if BP allows 11. No statin due to elevated liver enzymes 12. Echocardiogram 13. Serial lactic acid 14. Will need thoracentesis once his coagulopathy is improved 15. Liver ultrasound and acute hepatitis profile 16. Monitor creatinine and urine output 17. DVT prophylaxis with SCDs and GI prophylaxis with famotidine 18. Palliative care consult No family present at bedside. Patient is critically ill and at very high risk for further decompensation and . I spent 31 minutes of critical care time managing fluids, antibiotics, oxygenation, reviewing data and ordering investigations, discussing with nursing staff. (8) Renal failure Qualifiers: Renal failure chronicity: unspecified chronicity Qualified Code(s): N19 - Unspecified kidney failure
[2017-10-04] MEDS: Famotidine PF Inj 20 MG/2 ML Vial IV.PUSH SCH ×2 (10:20→21:06)
[2017-10-04] MEDS: Senna/Docusate Sodium 8.6/50 MG Tablet PO SCH ×2 (10:21→21:07)
--- NOTE | 2017-10-04 11:55 | P.CONPAL ---
Consult Service: Palliative Care Requesting Physician: Usha Martin Reason for Consult: a. To assist with evaluation and management of symptoms including: b. To assist medical decision maker(s) with: better understanding of current medical conditions; weighing benefits/burdens of medical treatment options; making medical treatment decisions. Primary Care Provider: UNKNOWN History of Present Illness History of Present Illness: This is an elderly male patient who presented to [facility] on 10/03/2017 as a Mario Schmidt after he was found in his apartment unresponsive with the door open. He was initially unresponsive but arouses to sternal rub. Patient remained incoherent and appeared to be severely dehydrated. Multiple abrasions and bruising on his upper and lower extremities as well as a contusion/soft tissue swelling on his right hip and ecchymosis of the lumbar spine. There were wounds in various stages of healing on the patient's scalp. Additional diagnostic data: * Pulse 111, respirations 20, BP 128/57, oxygen saturation 98% on room air, rectal temperature 99.1 * WBC: 12.8, hemoglobin 15.3, hematocrit 48.0, platelets 60, neutrophils 85.0% * PT 23.5, INR 2.3, APTT 26.8 * Sodium: 147, potassium 5.1, chloride 112, glucose 85, calcium 8.7 * BUN: 67, creatinine 2.71, GFR 20 * Lactic acid: 8.3 * Total bilirubin: 3.3, AST 2566, ALT 1898, alkaline phosphatase 33 * Ammonia: 29 * Creatine kinase: 777 * CK-MB: 12.3 * Troponin: 6.68 * Total protein: 6.3, albumin 3.6 * Urinalysis is consistent with UTI; urine culture pending * Blood culture pending * Toxicology screening was negative * Chest x-ray revealed a large right pleural effusion. Parenchymal opacity at the left base could represent pleural effusion or consolidation. No pneumothorax was seen. * Elbow x-ray showing discontinuity of the tip of a small olecranon spur without soft tissue swelling. Cannot exclude a fracture. Recommend correlation of clinical exam for point tenderness in this area * Right hip x-ray was negative for fracture * Lumbar spine x-ray showed 60% anterior compression fracture of L2; no retropulsed fragment seen * CT cervical spine showed no evidence of compression deformity, fracture or spondylolisthesis. Advanced hypertrophic degenerative changes in the facet joints, more severe on the right. * CT head revealed moderately severe central cortical atrophy; no acute findings. * CT abdomen/pelvis showed bilateral pleural effusions (right greater than left) ; nonobstructing 4 mm stone in the right renal collecting system; 3.7 cm infrarenal abdominal aortic aneurysm; small fat-containing left inguinal hernia * CT chest with large right and small left pleural effusion; no fracture seen; no evidence of pneumothorax. * Initial EKG was concerning for possible STEMI. Discussed with on-call interventional cardiology who felt this was likely related to a ventricular delay. EKG was unremarkable. He received IV fluids and cefepime while in the ED. Multiple lab abnormalities were noted. WBC was elevated at 12.8 with 87% neutrophils; platelet count 60, INR was 2.3. Urinalysis was consistent with UTI. Troponin was elevated at 6.8 ; lactic acid was 8.3; BUN 67; creatinine 2.71. Dr. Jaimes from cardiology was contacted for possible STEMI. Due to poor mentation and multiorgan failure patient was not a candidate for cardiac catheterization. He cannot receive aspirin or heparin due to platelet count of 60,000 INR of 2.3. Other abnormal labs included transaminitis and elevated CPK. Patient was admitted to ICU for further evaluation and medical management; will continue high duration and IV antibiotics. Patient is critically ill and his overall prognosis is very poor. REPLACED BY [facility] - History History Provided By: Patient - Medical / Surgical Hx Neg / Unobtainable Medical Problems Denied: Unable to Obtain - Tobacco History Smoking Status: Unknown if ever smoked - Alcohol History How Often Do You Have a Drink Containing Alcohol: Unable to Obtain - Substance Use History Substance History: Unable to Obtain - Immunization History Tetanus Immunization: Unable to Assess Medications and Allergies Active Medications: Active Medications Acetaminophen (Tylenol) 650 mg PO Q6H PRN PRN Reason: PAIN 1-10 AND/OR FEVER >101F Al Hydroxide/Mg Hydroxide (Milk Of Magnesia Liq) 30 ml PO Q12H PRN PRN Reason: Mild Constipation Albuterol (Duoneb Neb (Prn)) 1 ampul NEB Q2HR NEB PRN PRN Reason: WHEEZING Bisacodyl (Dulcolax Supp) 10 mg RECTAL DAILY PRN PRN Reason: SEVERE CONSITIPATION Chlorhexidine Gluconate (Chlorhexidine 2% Cloth) 3 pack TOPICAL DAILY@0400 [facility] Stop: 10/09/17 03:59 Last Admin: 10/04/17 04:52 Dose: 3 pack Chlorhexidine Gluconate (Chlorhexidine 2% Cloth) 3 pack TOPICAL DAILY@0400 PRN PRN Reason: Extra cloth needed Stop: 10/09/17 03:59 Famotidine (Pepcid Pf Inj) 10 mg IV.PUSH Q12HR [facility] Last Admin: 10/04/17 10:20 Dose: 10 mg Piperacillin/Tazobactam/Dextrose (Zosyn 3.375 Gm Premix) 50 mls @ 100 mls/hr IV.SIG Q8H [facility] Last Admin: 10/04/17 10:21 Dose: 100 mls/hr Lactated Ringer's (Lr 1000 Ml Inj) 1,000 mls @ 100 mls/hr IV.CONT .Q10H [facility] Last Admin: 10/04/17 10:27 Dose: 100 mls/hr Lactulose (Lactulose Liq) 30 ml PO DAILY PRN PRN Reason: SEVERE CONSITIPATION Metoprolol Tartrate (Lopressor Inj) 2.5 mg IV.PUSH Q6HR [facility] Last Admin: 10/04/17 05:49 Dose: 2.5 mg Pharmacy Profile Note (Vancomycin Consult Pharmacy) 1 each OTHER UNSCH PRN PRN Reason: Pharmacy to dose Senna/Docusate Sodium (Brigette-Colace) 1 tab PO BID [facility] Last Admin: 10/04/17 10:21 Dose: Not Given Sennosides (Senokot) 17.2 mg PO Q12H PRN PRN Reason: Moderate Constipation Sodium Chloride (Ns Flush) 2 ml IV.FLUSH BID [facility] Last Admin: 10/04/17 10:20 Dose: 2 ml Sodium Chloride (Ns Flush) 2 ml IV.FLUSH PRN PRN PRN Reason: FLUSH AFTER USING IV ACCESS Allergies Allergy/AdvReac Type Severity Reaction Status Date / Time No Allergy Information Allergy Unverified 10/03/17 18:31 Available Home Medications Medication Instructions Recorded Confirmed Type Unable to Obtain Home Meds 10/03/17 10/03/17 History Physical Exam Vital Signs: Vital Signs - 24 hr 10/03/17 18:31 10/03/17 19:10 10/03/17 20:27 Temperature 99.1 F Pulse Rate 111 H 100 H 103 H Respiratory Rate 20 28 H 28 H Blood Pressure 128/57 L 147/71 H 130/76 Pulse Oximetry 98 95 95 10/03/17 21:26 10/03/17 23:00 10/04/17 00:41 Temperature Pulse Rate 101 H 99 H 97 H Respiratory Rate 30 H 24 28 H Blood Pressure 130/84 124/67 127/83 Pulse Oximetry 98 98 95 10/04/17 03:00 10/04/17 04:00 10/04/17 05:00 Temperature 98.4 F Pulse Rate 88 86 91 H Respiratory Rate 44 H 31 H 30 H Blood Pressure 124/83 123/80 115/82 Pulse Oximetry 98 93 L 97 10/04/17 06:00 10/04/17 08:27 Temperature Pulse Rate 86 Respiratory Rate 20 Blood Pressure 112/75 Pulse Oximetry 97 96 I&O: Intake & Output 10/02/17 10/03/17 10/04/17 10/05/17 06:59 06:59 06:59 06:59 Intake Total 50 / 50 Output Total 800 / 800 Balance -750 / -750 Weight 65.8 kg Physical Exam: CONSTITUTIONAL/GENERAL: This is an adequately nourished patient, in no apparent distress. TUBES/LINES/DRAINS: SKIN: No jaundice, rashes, or lesions. Ecchymoses on upper extremities. No wounds seen anteriorly. Skin temperature appropriate. Not diaphoretic. HEAD: Atraumatic. Normocephalic. EYES: Pupils equal and round and reactive. Extraocular motions intact. No scleral icterus. No injection or drainage. Fundi not examined. ENT: Hearing grossly normal. Nose without bleeding or purulent drainage. Throat without visible erythema, exudates, masses, or lesions. NECK: Trachea midline. Supple, nontender. No palpable thyroid enlargement or nodularity. CARDIOVASCULAR: Regular rate and rhythm without murmurs, gallops, or rubs. No JVD. Peripheral pulses symmetric. RESPIRATORY/CHEST: Symmetric, unlabored respirations. Clear to auscultation. Breath sounds equal bilaterally. No wheezes, rales, or rhonchi. GASTROINTESTINAL: Abdomen soft, non-tender, nondistended. No hepato-splenomegaly , or palpable masses. No guarding. Bowel sounds present. GENITOURINARY: Without palpable bladder distension. Alberto catheter in place. MUSCULOSKELETAL: Extremities without clubbing, cyanosis, or edema. No joint tenderness or effusion noted. No calf tenderness. No mottling or clubbing. LYMPHATICS: No palpable cervical or supraclavicular adenopathy. NEUROLOGICAL: Awake and alert. Motor and sensory grossly within normal limits. Follows commands. Cognitively sharp. Moves all extremities. PSYCHIATRIC: No obvious anxiety/depression. no apparent hallucinations or other psychotic thought process. Diagnostic Tests Laboratory: Laboratory Results - last 72 hr 10/03/17 10/03/17 10/03/17 18:45 18:45 18:45 WBC RBC Hgb Hct MCV MCH MCHC RDW Plt Count MPV Prelim Diff (Auto) Neut % (Auto) Lymph % (Auto) Power % (Auto) Eos % (Auto) Baso % (Auto) Neut # (Auto) Lymph # (Auto) Power # (Auto) Eos # (Auto) Baso # (Auto) WBC Differential Seg Neuts % (Manual) Band Neuts % (Manual) Lymphocytes % (Manual) Monocytes % (Manual) Abs Neuts (Manual) Nucleated RBCs/100 WBC Differential Comment Toxic Granulation Platelet Estimate Platelet Morphology Basophilic Stippling Spherocytes Ovalocytes PT 23.5 H INR 2.3 APTT 26.8 Puncture Site Patient Temperature O2 Saturation ABG pH ABG pCO2 ABG pO2 ABG HCO3 ABG O2 Content ABG Base Excess ABG Methemoglobin Hemoglobin Carboxyhemoglobin O2 Delivery Device Liter Flow Critical Value Sodium Potassium Chloride Carbon Dioxide Anion Gap BUN Creatinine Estimated GFR POC Glucose Random Glucose Lactic Acid Calcium Prot Corrected Calcium Phosphorus Total Bilirubin AST ALT Alkaline Phosphatase Ammonia Total Creatine Kinase CK-MB (CK-2) CK-MB (CK-2) % Troponin I Total Protein Albumin Vitamin B12 TSH Cancelled Urine Color Urine Clarity Urine pH Ur Specific [place] Urine Protein Urine Glucose (UA) Urine Ketones Urine Occult Blood Urine Nitrate Urine Bilirubin Urine Urobilinogen Ur Leukocyte Esterase Urine RBC Urine WBC Ur Squamous Epith Cells Amorphous Sediment Urine Bacteria Hyaline Casts Granular Casts Urine Mucus Micro UA Comment Ur Microscopic Review Urine Culture Comments Nasal Screen MRSA (PCR) Salicylates Less than 1.7 L Urine Opiates Screen Ur Barbiturates Screen Ur Amphetamines Screen U Benzodiazepines Scrn Urine Cocaine Screen U Cannabinoids Screen Serum Alcohol Cancelled Blood Type Antibody Screen 10/03/17 10/03/17 10/03/17 18:45 18:45 18:45 WBC RBC Hgb Hct MCV MCH MCHC RDW Plt Count MPV Prelim Diff (Auto) Neut % (Auto) Lymph % (Auto) Power % (Auto) Eos % (Auto) Baso % (Auto) Neut # (Auto) Lymph # (Auto) Power # (Auto) Eos # (Auto) Baso # (Auto) WBC Differential Seg Neuts % (Manual) Band Neuts % (Manual) Lymphocytes % (Manual) Monocytes % (Manual) Abs Neuts (Manual) Nucleated RBCs/100 WBC Differential Comment Toxic Granulation Platelet Estimate Platelet Morphology Basophilic Stippling Spherocytes Ovalocytes PT INR APTT Puncture Site Patient Temperature O2 Saturation ABG pH ABG pCO2 ABG pO2 ABG HCO3 ABG O2 Content ABG Base Excess ABG Methemoglobin Hemoglobin Carboxyhemoglobin O2 Delivery Device Liter Flow Critical Value Sodium 147 H Potassium 5.1 Chloride 112 H Carbon Dioxide 13.4 L Anion Gap 22 H BUN 67 H Creatinine 2.71 H Estimated GFR 20 L POC Glucose Random Glucose 85 Lactic Acid Calcium 8.7 Prot Corrected Calcium Phosphorus Total Bilirubin 3.3 H AST 2566 H ALT 1898 H Alkaline Phosphatase 33 L Ammonia Total Creatine Kinase 777 H Cancelled CK-MB (CK-2) 12.3 H CK-MB (CK-2) % 1.6 Troponin I 6.68 H* Total Protein 6.3 L Albumin 3.6 Vitamin B12 TSH 0.768 Urine Color Urine Clarity Urine pH Ur Specific [place] Urine Protein Urine Glucose (UA) Urine Ketones Urine Occult Blood Urine Nitrate Urine Bilirubin Urine Urobilinogen Ur Leukocyte Esterase Urine RBC Urine WBC Ur Squamous Epith Cells Amorphous Sediment Urine Bacteria Hyaline Casts Granular Casts Urine Mucus Micro UA Comment Ur Microscopic Review Urine Culture Comments Nasal Screen MRSA (PCR) Salicylates Urine Opiates Screen Ur Barbiturates Screen Ur Amphetamines Screen U Benzodiazepines Scrn Urine Cocaine Screen U Cannabinoids Screen Serum Alcohol Less than 3 Blood Type B Positive Antibody Screen Negative 10/03/17 10/03/17 10/03/17 18:50 18:50 19:00 WBC RBC Hgb Hct MCV MCH MCHC RDW Plt Count MPV Prelim Diff (Auto) Neut % (Auto) Lymph % (Auto) Power % (Auto) Eos % (Auto) Baso % (Auto) Neut # (Auto) Lymph # (Auto) Power # (Auto) Eos # (Auto) Baso # (Auto) WBC Differential Seg Neuts % (Manual) Band Neuts % (Manual) Lymphocytes % (Manual) Monocytes % (Manual) Abs Neuts (Manual) Nucleated RBCs/100 WBC Differential Comment Toxic Granulation Platelet Estimate Platelet Morphology Basophilic Stippling Spherocytes Ovalocytes PT INR APTT Puncture Site Patient Temperature O2 Saturation ABG pH ABG pCO2 ABG pO2 ABG HCO3 ABG O2 Content ABG Base Excess ABG Methemoglobin Hemoglobin Carboxyhemoglobin O2 Delivery Device Liter Flow Critical Value Sodium Potassium Chloride Carbon Dioxide Anion Gap BUN Creatinine Estimated GFR POC Glucose Random Glucose Lactic Acid 8.3 H* Calcium Prot Corrected Calcium Phosphorus Total Bilirubin AST ALT Alkaline Phosphatase Ammonia 29 Total Creatine Kinase CK-MB (CK-2) CK-MB (CK-2) % Troponin I Total Protein Albumin Vitamin B12 TSH Urine Color Dee Urine Clarity Cloudy H Urine pH 5.0 Ur Specific [place] 1.019 Urine Protein 100 H Urine Glucose (UA) 50 Urine Ketones Negative Urine Occult Blood Moderate H Urine Nitrate Negative Urine Bilirubin Negative Urine Urobilinogen Less than 2 Ur Leukocyte Esterase Negative Urine RBC 2 Urine WBC 4 Ur Squamous Epith Cells 1 Amorphous Sediment Few H Urine Bacteria Occasional H Hyaline Casts Innum Granular Casts 13 Urine Mucus Few H Micro UA Comment Cath-culture ind Ur Microscopic Review Not Reportable Urine Culture Comments Cath-cult indicated Nasal Screen MRSA (PCR) Salicylates Urine Opiates Screen Ur Barbiturates Screen Ur Amphetamines Screen U Benzodiazepines Scrn Urine Cocaine Screen U Cannabinoids Screen Serum Alcohol Blood Type Antibody Screen 10/03/17 10/03/17 10/03/17 19:00 19:25 23:05 WBC 12.8 H RBC 4.94 Hgb 15.3 Hct 48.0 MCV 97.3 MCH 31.0 MCHC 31.9 L RDW 15.7 Plt Count 60 L MPV 11.7 H Prelim Diff (Auto) Slide review pending Neut % (Auto) 85.0 H Lymph % (Auto) 4.6 L Power % (Auto) 10.3 H Eos % (Auto) 0.0 Baso % (Auto) 0.1 Neut # (Auto) 10.9 H Lymph # (Auto) 0.6 L Power # (Auto) 1.3 H Eos # (Auto) 0.0 Baso # (Auto) 0.0 WBC Differential Manual diff final Seg Neuts % (Manual) 87 H Band Neuts % (Manual) 3 Lymphocytes % (Manual) 3 L Monocytes % (Manual) 7 Abs Neuts (Manual) 11.5 H Nucleated RBCs/100 WBC Differential Comment . Toxic Granulation 2+ H Platelet Estimate Low L Platelet Morphology Enlarged H Basophilic Stippling Faint H Spherocytes Occ H Ovalocytes 1+ H PT INR APTT Puncture Site Patient Temperature O2 Saturation ABG pH ABG pCO2 ABG pO2 ABG HCO3 ABG O2 Content ABG Base Excess ABG Methemoglobin Hemoglobin Carboxyhemoglobin O2 Delivery Device Liter Flow Critical Value Sodium Potassium Chloride Carbon Dioxide Anion Gap BUN Creatinine Estimated GFR POC Glucose Random Glucose Lactic Acid 6.9 H* Calcium Prot Corrected Calcium Phosphorus Total Bilirubin AST ALT Alkaline Phosphatase Ammonia Total Creatine Kinase CK-MB (CK-2) CK-MB (CK-2) % Troponin I Total Protein Albumin Vitamin B12 TSH Urine Color Urine Clarity Urine pH Ur Specific [place] Urine Protein Urine Glucose (UA) Urine Ketones Urine Occult Blood Urine Nitrate Urine Bilirubin Urine Urobilinogen Ur Leukocyte Esterase Urine RBC Urine WBC Ur Squamous Epith Cells Amorphous Sediment Urine Bacteria Hyaline Casts Granular Casts Urine Mucus Micro UA Comment Ur Microscopic Review Urine Culture Comments Nasal Screen MRSA (PCR) Salicylates Urine Opiates Screen Neg Ur Barbiturates Screen Neg Ur Amphetamines Screen Neg U Benzodiazepines Scrn Neg Urine Cocaine Screen Neg U Cannabinoids Screen Neg Serum Alcohol Blood Type Antibody Screen 10/03/17 10/04/17 10/04/17 23:51 00:31 01:46 WBC RBC Hgb Hct MCV MCH MCHC RDW Plt Count MPV Prelim Diff (Auto) Neut % (Auto) Lymph % (Auto) Power % (Auto) Eos % (Auto) Baso % (Auto) Neut # (Auto) Lymph # (Auto) Power # (Auto) Eos # (Auto) Baso # (Auto) WBC Differential Seg Neuts % (Manual) Band Neuts % (Manual) Lymphocytes % (Manual) Monocytes % (Manual) Abs Neuts (Manual) Nucleated RBCs/100 WBC Differential Comment Toxic Granulation Platelet Estimate Platelet Morphology Basophilic Stippling Spherocytes Ovalocytes PT INR APTT Puncture Site Right brachial Patient Temperature 98.6 O2 Saturation 94 ABG pH 7.32 L ABG pCO2 24 L* ABG pO2 100 ABG HCO3 12 L* ABG O2 Content 21.0 H ABG Base Excess -13.3 L ABG Methemoglobin 0.6 Hemoglobin 15.8 Carboxyhemoglobin 0.5 O2 Delivery Device Nasal cannula Liter Flow 6.00 Critical Value Yes Sodium Potassium Chloride Carbon Dioxide Anion Gap BUN Creatinine Estimated GFR POC Glucose Random Glucose Lactic Acid Calcium Prot Corrected Calcium Phosphorus Total Bilirubin AST ALT Alkaline Phosphatase Ammonia Total Creatine Kinase CK-MB (CK-2) CK-MB (CK-2) % Troponin I 5.30 H* Total Protein Albumin Vitamin B12 TSH Urine Color Urine Clarity Urine pH Ur Specific [place] Urine Protein Urine Glucose (UA) Urine Ketones Urine Occult Blood Urine Nitrate Urine Bilirubin Urine Urobilinogen Ur Leukocyte Esterase Urine RBC Urine WBC Ur Squamous Epith Cells Amorphous Sediment Urine Bacteria Hyaline Casts Granular Casts Urine Mucus Micro UA Comment Ur Microscopic Review Urine Culture Comments Nasal Screen MRSA (PCR) Not detected Salicylates Urine Opiates Screen Ur Barbiturates Screen Ur Amphetamines Screen U Benzodiazepines Scrn Urine Cocaine Screen U Cannabinoids Screen Serum Alcohol Blood Type Antibody Screen 10/04/17 10/04/17 10/04/17 02:17 07:17 07:17 WBC 13.3 H RBC 5.11 Hgb 15.8 Hct 48.9 MCV 95.7 MCH 30.8 MCHC 32.2 RDW 15.8 Plt Count 47 L MPV 11.1 H Prelim Diff (Auto) Slide review pending Neut % (Auto) 87.9 H Lymph % (Auto) 4.4 L Power % (Auto) 7.2 Eos % (Auto) 0.0 Baso % (Auto) 0.5 Neut # (Auto) 11.7 H Lymph # (Auto) 0.6 L Power # (Auto) 1.0 H Eos # (Auto) 0.0 Baso # (Auto) 0.1 WBC Differential Manual diff final Seg Neuts % (Manual) 90 H Band Neuts % (Manual) 2 Lymphocytes % (Manual) 3 L Monocytes % (Manual) 5 Abs Neuts (Manual) 12.2 H Nucleated RBCs/100 WBC 3 H Differential Comment . Toxic Granulation Platelet Estimate Low L Platelet Morphology Normal Basophilic Stippling Spherocytes Ovalocytes PT INR APTT Puncture Site Patient Temperature O2 Saturation ABG pH ABG pCO2 ABG pO2 ABG HCO3 ABG O2 Content ABG Base Excess ABG Methemoglobin Hemoglobin Carboxyhemoglobin O2 Delivery Device Liter Flow Critical Value Sodium 153 H Potassium 3.9 D Chloride 118 H Carbon Dioxide 19.4 L Anion Gap 16 H BUN 63 H Creatinine 2.13 H Estimated GFR 27 L POC Glucose 112 H Random Glucose 140 H Lactic Acid Calcium 7.3 L* D Prot Corrected Calcium 8.2 L Phosphorus 5.9 H Total Bilirubin 4.1 H AST 2568 H ALT 2212 H Alkaline Phosphatase 28 L Ammonia Total Creatine Kinase CK-MB (CK-2) CK-MB (CK-2) % Troponin I 8.31 H* Total Protein 5.5 L D Albumin 3.2 L Vitamin B12 Greater than 2000 H TSH Urine Color Urine Clarity Urine pH Ur Specific [place] Urine Protein Urine Glucose (UA) Urine Ketones Urine Occult Blood Urine Nitrate Urine Bilirubin Urine Urobilinogen Ur Leukocyte Esterase Urine RBC Urine WBC Ur Squamous Epith Cells Amorphous Sediment Urine Bacteria Hyaline Casts Granular Casts Urine Mucus Micro UA Comment Ur Microscopic Review Urine Culture Comments Nasal Screen MRSA (PCR) Salicylates Urine Opiates Screen Ur Barbiturates Screen Ur Amphetamines Screen U Benzodiazepines Scrn Urine Cocaine Screen U Cannabinoids Screen Serum Alcohol Blood Type Antibody Screen Result Diagrams: 10/04/17 07:17 10/04/17 07:17 Microbiology: Microbiology 10/03/17 18:40 Aerobic Blood Culture - Preliminary Blood - Line No growth in 1 day Anaerobic Blood Culture - Preliminary No growth in 1 day 10/03/17 18:45 Aerobic Blood Culture - Preliminary Blood - Line No growth in 1 day Anaerobic Blood Culture - Preliminary No growth in 1 day Patient/Family Conference Issues Discussed: * Palliative care role, purpose, approach * Additional medical, psychosocial, and spiritual history * Patients general health, functional status, and cognitive changes in the months leading up to the current hospitalization * Patient/family understanding of the current medical problems * Patient/family understanding of prognosis * Patients goals of care as best understood from advance directives and/or conversations and/or values * Current medical treatment options and benefits/burdens of those options * Likely scenarios comparing ongoing aggressive care with a transition to comfort measures only * Questions answered to the best of my ability * Palliative care contact information provided Assessment and Plan - Disease Oriented Problem List (1) Pleural effusion (2) JAVON (acute kidney injury) (3) Toxic metabolic encephalopathy (4) Septic shock (5) UTI (urinary tract infection) (6) Transaminitis (7) NSTEMI (non-ST elevated myocardial infarction) (8) Thrombocytopenia (9) Renal failure Pertinent Non-Medical Issues: Psychosocial: Spiritual: Legal: Ethical issues impacting care: Appreciation Thank you for the opportunity to participate in the care of Mario [email or web address]. Attestation Attestation: To help prompt me to consider important information that might be impacting today's encounter and assessment, information from prior notes written by myself or my colleagues may have been "brought forward" into today's note. My signature on this note, however, is an attestation that I personally performed the exam, history, and/or decision-making noted today, and, unless otherwise indicated, the interactions with patient, family, and staff as well as the review of records all occurred today. I also attest that the listed assessment and stated plan reflect my best clinical judgment today based on the combination of historical information, prior notes, and today's exam/ interactions. When time spent is documented, it refers only to time spent today by the signer, or if indicated, combined time spent today by collaborating physician/nurse practitioner.
--- NOTE | 2017-10-04 12:43 | ECG ---
Date Performed: 10/03/2017 Time Performed: 18:33:16 PTAGE: 89 years EKG: SINUS TACHYCARDIA POSSIBLE LEFT ATRIAL ENLARGEMENT INTRAVENTRICULAR CONDUCTION DELAY ANTERI OR MYOCARDIAL INFARCTION INFERIOR MYOCARDIAL INFARCTION ACUTE [place] NO PRIOR TRACING DOCTOR: Luigi Rodríguez Interpretating Date/Time 10/04/2017 12:37:38
--- NOTE | 2017-10-04 13:27 | MB ---
cc: Wallace Lomas DO DATE: 10/04/2017 REASON FOR CONSULTATION: Elevated troponin. HISTORY OF PRESENT ILLNESS: Mario Dickinson is an elderly male, who was brought in because he was found on the floor of his apartment with the door open. Apparently, neighbors checked on him and he was found unresponsive on the floor. Lab work was checked and he was found to have multiple lab abnormalities. There was also a concern for a possible STEMI and so Dr. Mcacnn was consulted. Due to his poor mentation and multiorgan failure, the patient was deemed not a candidate for cardiac catheterization. I was asked to see him to try to help out from a cardiology standpoint for his elevated troponins. In seeing him, he is unable to give any type of information. Information is taken from the chart, which is limited at best due to the patient unable to give us any information. He is currently hemodynamically stable, but confused. PAST MEDICAL HISTORY: Unable to obtain. PAST SURGICAL HISTORY: Unable to obtain. ALLERGIES: UNABLE TO OBTAIN. MEDICATIONS: Unable to obtain. FAMILY HISTORY: Unable to obtain. SOCIAL HISTORY: Unable to obtain. REVIEW OF SYSTEMS: I attempted to get 14 systems of review. The patient is unable to give me much information on why he is here or any type of information. PHYSICAL EXAMINATION: VITAL SIGNS: Temperature 98.4, heart rate 86, blood pressure 112/75, respirations 20, pulse oximetry 97% on 5 liters. GENERAL: The patient is an elderly gentleman, poorly nutritioned and disheveled. He is alert and awake, but does not appear oriented. HEENT: Extraocular muscles intact. Mucous membranes moist. NECK: Supple. No JVD at 45 degrees. No carotid bruits heard bilaterally. Carotid upstroke is brisk in nature. HEART: Regular rate and rhythm. Positive first and second heart sounds with no noted murmurs, gallops, or rubs. LUNGS: Decreased breath sounds bilaterally. No wheezes, rales, or rhonchi. ABDOMEN: Soft, nontender, nondistended. No organomegaly noted. EXTREMITIES: No clubbing, cyanosis, or edema. Femoral and distal pulses intact bilaterally. NEUROLOGIC: The patient is awake, but does not follow any commands and is somewhat agitated. Not oriented to time, place, or person. OSTEOPATHIC: No kyphoscoliosis, lordosis, or paraspinal tender points. LABORATORY DATA: Hemoglobin 15.8, hematocrit 48.9, platelets 47. INR 2.3. BUN 63, creatinine 2.13. Lactic acid 5.4. Troponin 8.3. Electrocardiogram (10/03/2017 at 2102): Sinus tachycardia, possible left atrial enlargement, interventricular conduction delay. Electrocardiogram (10/03/2017 at 1833): Sinus tachycardia, possible left atrial enlargement, interventricular conduction delay, which appears to be left bundle branch block, consideration of an inferior myocardial infarction, acute, although significant Q-waves are noted. IMPRESSION: 1. Severe metabolic derangement. 2. Acute encephalopathy, most likely toxic metabolic encephalopathy. 3. Cvd-KG-tjjoyszrn myocardial infarction. 4. Sepsis. 5. Urinary tract infection. 6. Lactic acidosis. 7. Transaminitis. 8. Acute kidney injury. 9. Hypernatremia. 10. Coagulopathy with thrombocytopenia due to liver disease. RECOMMENDATIONS: 1. Mr. Mario Dickinson presented with multiple electrolyte derangements most likely due to dehydration. 2. EKG was read as a possible STEMI, although this is more than likely just a left bundle branch block with some mild elevation in the inferior leads and Q-waves. More than likely this is an NSTEMI, which may be type 1 or type 2 in nature. 3. He is not an ischemic workup candidate and will be recommended continued medical therapy. 4. Agree with palliative care seeing the patient as his prognosis is overall extremely grim. Thank you for allowing me to see Mario Dickinson. If there are any questions, please do not hesitate to call. Wallace Lomas DO VGP/ts , 12:45 PM , 12:58 PM
--- NOTE | 2017-10-04 13:29 | US ---
EXAM DATE: 10/04/2017 1:17 PM EDT AGE/SEX: 89 years / Male INDICATIONS: Abnormal labs. CLINICAL DATA: This is the patient's initial encounter. Patient reports that signs and symptoms have been present for 1 day and indicates a pain score of Nonresponsive. MEDICAL/SURGICAL HISTORY: . Unable to obtain. . Unable to obtain. COMPARISON: [facility] [place]EL[place]/O CONTRAST, 10/03/2017. . MEASUREMENTS: Liver:__ 13.7 cm. Common Bile Duct:__ 6mm. Right Kidney:__ 10.0 x 4.6 cm. FINDINGS: Liver: Normal echotexture without focal lesion or ductal dilatation. Portal Vein: There is limited visualization of the portal vein but there does appear to be flow in th e portal vein. The intrahepatic portal system is not well-visualized. There is good flow in the extra hepatic portal system. Common Duct: No intraluminal mass or stone visualized. Gallbladder: Demonstrates no wall thickening or pericholecystic fluid. No stones visualized. Pancreas: The visualized portions are within normal limits Right Kidney: No evidence of hydronephrosis. There is a cyst along the upper pole measuring 3.0 x 2. 3 cm. Other: Bilateral pleural effusions. CONCLUSION: 1. No evidence of gallstones or biliary tract obstruction. 2. There is a cyst along the upper pole the right kidney measuring 3 cm. 3. Bilateral pleural effusions. Electronically signed by: Jake Melendez MD 10/04/2017 1:28 PM EDT
--- NOTE | 2017-10-04 14:53 | ECG ---
Date Performed: 10/03/2017 Time Performed: 21:02:03 PTAGE: 89 years EKG: SINUS TACHYCARDIA POSSIBLE LEFT ATRIAL ENLARGEMENT INTRAVENTRICULAR CONDUCTION DELAY INFERI OR MYOCARDIAL INFARCTION ANTERIOR MYOCARDIAL INFARCTION, AGE UNDETERMINED Since the previous tracing, no significant change noted ABNORMAL ECG PREVIOUS TRACING : 10/03/2017 18.33 DOCTOR: Luigi Rodríguez Interpretating Date/Time 10/04/2017 14:52:54
[2017-10-04 15:44] LABS: CKMB Percent 3.3 % (0.0-4.0); Creatine Kinase MB 26.1 ng/mL (0.5-3.6)
[2017-10-04 15:48] LABS: Hepatitits B Surface Antigen Nonreactive (Nonreactive)
[2017-10-04 16:16] LABS: Hepatitis A IgM Antibody Nonreactive (Nonreactive)
--- NOTE | 2017-10-04 17:01 | P.PNPAL ---
This is an elderly male patient who presented to [facility] ED on 10/03/2017 as a Mario Schmidt after he was found in his apartment unresponsive with the door open. He was initially unresponsive but arouses to sternal rub. Patient remained incoherent and appeared to be severely dehydrated. While in the ED, the patient received IV fluids and antibiotics. Multiple lab abnormalities were noted. WBC was elevated at 12.8 with 87% neutrophils; platelet count 60, INR was 2.3. Urinalysis was consistent with UTI. Troponin was elevated at 6.8; lactic acid was 8.3; BUN 67; creatinine 2.71. Dr. Jaimes from cardiology was contacted for possible STEMI. Due to poor mentation and multiorgan failure patient was not a candidate for cardiac catheterization. He cannot receive aspirin or heparin due to platelet count of 60,000 INR of 2.3. Other abnormal labs included transaminitis and elevated CPK. Patient was admitted to ICU for further evaluation and medical management; will continue high duration and IV antibiotics. Case management (Jace Cunningham) spoke to the patient's landlord ([facility]) who stated the patient has been renting a room from him for the last 20 years; to his knowledge the patient does not have any family. CM also spoke with the patient's PCP and Madina Acevedo who is a account contact associate from the doctor' s office. It is unclear what Ms. Acevedo' relationship is to the patient, but she is willing to act in the role of healthcare proxy decision-maker. Will need to exercise due diligence in our attempts to find family members before allowing Ms. Acevedo to act in the roll of HCP decision maker.
[2017-10-05] MEDS: Metoprolol Inj 5 MG/5 ML Vial IV.PUSH SCH ×4 (00:25→17:42)
[2017-10-05] MEDS: Piperacil/Tazo 3.375 GM Premix 50 ML IV.SIG SCH ×3 (00:25→15:54)
[2017-10-05] MEDS: Chlorhexidine Gluconate 2% 1 Pack (2 Cloths) TOPICAL SCH (06:29)
[2017-10-05 07:18] LABS: Baso % (Auto) 0.1 % (0.0-2.0); Hematocrit 50.9 % (39.0-51.0); Hemoglobin 16.1 gm/dL (13.0-17.0); Lymph # (Auto) 0.6 th/mm3 (1.0-4.8); Lymph % (Auto) 4.9 % (9.0-44.0); Mean Corpuscular HGB Conc 31.6 % (32.0-36.0); Mean Corpuscular Hemoglobin 30.8 pg (27.0-34.0); Mean Corpuscular Volume 97.3 fL (80.0-100.0); Mean Platelet Volume 11.8 fL (7.0-11.0); Mono # (Auto) 0.6 th/mm3 (0.0-0.9); Mono % (Auto) 4.9 % (0.0-8.0); Neut # (Auto) 10.5 th/mm3 (1.8-7.7); Neut % (Auto) 90.1 % (16.0-70.0); Platelet Count 29 th/mm3 (150-450); Red Blood Count 5.23 mil/mm3 (4.50-5.90); Red Cell Distribution Width 15.9 % (11.6-17.2); White Blood Count 11.6 th/mm3 (4.0-11.0)
[2017-10-05 07:43] LABS: Alanine Aminotransferase 1817 U/L (12-78); Albumin 2.9 g/dL (3.4-5.0); Alkaline Phosphatase 26 U/L (45-117); Anion Gap 18 meq/L (5-15); Aspartate Aminotransferase 1076 U/L (15-37); Blood Urea Nitrogen 81 mg/dL (7-18); Calcium 7.6 mg/dL (8.5-10.1); Carbon Dioxide 19.3 meq/L (21.0-32.0); Chloride 118 meq/L (98-107); Creatine Kinase 759 U/L (39-308); Glomerular Filtration Rate 28 mL/min (>89); Glucose,Random 97 mg/dL (74-106); Magnesium 2.6 mg/dL (1.5-2.5); Phosphorus 6.3 mg/dL (2.5-4.9); Potassium 4.2 meq/L (3.5-5.1); Sodium 155 meq/L (136-145)
[2017-10-05 08:00] LABS: CKMB Percent 2.7 % (0.0-4.0); Creatine Kinase MB 20.3 ng/mL (0.5-3.6)
[2017-10-05] MEDS: Famotidine PF Inj 20 MG/2 ML Vial IV.PUSH SCH ×2 (08:00→20:08)
[2017-10-05] MEDS: Senna/Docusate Sodium 8.6/50 MG Tablet PO SCH ×2 (08:00→20:08)
[2017-10-05 08:34] LABS: Lymphocytes 1 % (9-44); Monocytes 3 % (0-8); Tallied Nucleated RBC 1 (0-0)
[2017-10-05 08:35] LABS: Toxic Granulation 1+
--- NOTE | 2017-10-05 09:32 | P.PNPAL ---
Patient has now been identified. Name is Pablo Slater. In review of previous records, patient was aamir acted in 2008. Psychosocial evaluation reports: * Originally from [place], [place]. Moved in [place], [place] in 1991. * x2. * 2 children from first marriage (Kayy Gould and Pablo), 1 child from second marriage (Paul) * Reportedly no contact * Parents * 5 brothers and 1 sister (reported in 2008 patient has not had contact in over 20 years) * Graduated high school * Held a variety of different jobs * Hx of tonsillectomy, adenoidectomy, and abdominal aortic aneurysm, hypertension No contact information for family in previous records. [employer] requested. Awaiting results. Palliative care will continue to follow throughout hospitalization. Will further address goals of medical treatment once appropriate health care proxy identified.
--- NOTE | 2017-10-05 10:01 | P.PNCC ---
Subjective Subjective Remarks/Hospital Course: Patient is an elderly male with unknown past medical history who was found on the floor of his apartment with door open. Apparently neighbors checked on him and found him unresponsive on the floor. Patient was brought to the emergency department and underwent extensive workup to rule out trauma. CT of the head showed moderate to severe atrophy, CT of the chest showed moderate right-sided and small left effusion. 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 X-ray of his right elbow showed a possible olecranon spur discontinuity. Multiple lab abnormalities white count was 12.8 with 87% neutrophils platelet count 60 INR was 2.3. UA showed evidence of UTI, patient received a dose of cefepime for severe sepsis. Also his troponin was elevated at 6.8, lactic acid was 8.3 BUN 67 creatinine 2.71. Patient received 2 L normal saline boluses. Dr. Jaimes from cardiology was contacted for an STEMI. Due to poor mentation and multiorgan failure patient was deemed not a candidate for cardiac catheterization. Cannot use aspirin or heparin due to platelet count of 60,000 INR of 2.3. Other abnormal labs included transaminitis and elevated CPK. I evaluated the patient in the emergency department. He is severely encephalopathic appears critical, tachypneic but protecting airway. He is not able to say his name or mouth any words. He continues to move his head side to side but not communicative. I have added additional 2 L normal saline bolus, give 2 A of bicarb. Check ABG. Broad-spectrum antibiotics with vancomycin 1 dose and renally dosed Zosyn. Patient is very critically ill and has multiorgan failure, overall prognosis appears very poor. 10/04: This morning patient is not on any pressors. He is awake, agitated at times requiring restraints. He is saying incomprehensible words. T-max of 99.1. Urine output is minimal. 10/05: No events over the night. T-max of 98.4. Patient's mental status remains unchanged. Lethargic but easily arousable, not following any commands, saying incomprehensible words. Urine output of 525 mL's over the last 24 hours. Patient identified as Pablo Slater, 82-year-old gentleman. Still no family contact yet. ROS -unobtainable due to patient's mental status Objective Vital Signs / I&O: Vital Signs 10/04/17 10:00 10/04/17 11:00 10/04/17 12:00 Temperature 98.1 F 97.9 F Pulse Rate 89 87 75 Respiratory Rate 22 34 H 38 H Blood Pressure 114/75 116/80 114/80 Pulse Oximetry 95 95 93 L 10/04/17 13:00 10/04/17 14:00 10/04/17 15:00 Temperature 97.9 F 97.7 F 97.7 F Pulse Rate 89 81 85 Respiratory Rate 15 37 H 25 H Blood Pressure 114/75 112/81 107/75 Pulse Oximetry 91 L 93 L 94 L 10/04/17 16:00 10/04/17 17:00 10/04/17 18:00 Temperature 97.7 F 97.7 F 97.9 F Pulse Rate 87 83 85 Respiratory Rate 38 H 22 34 H Blood Pressure 105/75 119/77 105/63 Pulse Oximetry 90 L 91 L 95 10/04/17 19:00 10/04/17 20:00 10/04/17 20:15 Temperature 97.7 F 97.7 F Pulse Rate 80 81 Respiratory Rate 21 32 H Blood Pressure 107/73 109/82 Pulse Oximetry 96 95 93 L 10/04/17 21:00 10/04/17 22:00 10/04/17 23:00 Temperature Pulse Rate 83 82 83 Respiratory Rate 26 H 39 H 22 Blood Pressure 107/75 108/75 112/73 Pulse Oximetry 92 L 89 L 89 L 10/05/17 00:00 10/05/17 01:00 10/05/17 02:00 Temperature 98.4 F Pulse Rate 86 84 82 Respiratory Rate 26 H 26 H 22 Blood Pressure 109/70 105/70 105/65 Pulse Oximetry 92 L 95 93 L 10/05/17 03:00 10/05/17 04:00 10/05/17 05:00 Temperature 98.2 F Pulse Rate 77 90 77 Respiratory Rate 30 H 30 H 37 H Blood Pressure 106/67 120/77 105/73 Pulse Oximetry 92 L 90 L 95 10/05/17 06:00 10/05/17 07:00 10/05/17 08:00 Temperature 97.9 F 97.9 F Pulse Rate 84 79 84 Respiratory Rate 26 H 31 H 25 H Blood Pressure 117/76 115/81 114/78 Pulse Oximetry 92 L 96 96 10/05/17 09:00 Temperature 97.9 F Pulse Rate 81 Respiratory Rate 26 H Blood Pressure 114/77 Pulse Oximetry 100 Intake & Output 10/04/17 10/05/17 10/05/17 18:59 06:59 18:59 Intake Total 100 / 100 1050 / 1050 1000 / 1000 Output Total 325 / 325 200 / 200 Balance -225 / -225 850 / 850 1000 / 1000 Weight 67.6 kg Intake: IV 100 / 100 1050 / 1050 1000 / 1000 LR 1000 mL Inj 1,000 ML @ 100 1000 / 1000 1000 / 1000 mls/hr IV.CONT .Q10H JIGNA Rx#: [id number] Zosyn 3.375 GM Premix 50 ML @ 100 / 100 50 / 50 100 mls/hr IV.SIG Q8H JIGNA Rx#: [id number] Oral 0 / 0 Output: Urine Amount (Catheter) 325 / 325 200 / 200 Indwelling Urethral Catheter 325 / 325 200 / 200 Other: # Bowel Movements 0 Result Diagrams: 10/05/17 05:06 10/05/17 05:06 Other Results: Blood cultures and urine cultures were reviewed, no growth to date so far Objective Remarks: GENERAL: Elderly gentleman, poorly nourished, disheveled, ill-appearing, very deconditioned HEENT: Pupils are equal and reactive. Sclerae are anicteric. Neck is supple without rigidity. Dry mucous membrane. Neck veins are nondistended. No carotid bruit. CHEST: Scattered coarse breath sounds bilateral, decreased breath sounds at bases. No wheezes. CARDIOVASCULAR: Regular S1 and S2, without murmurs. ABDOMEN: Soft, nontender, nondistended. Bowel sounds are decreased. No hepatomegaly or splenomegaly appreciated. MUSCULOSKELETAL: Remain tepid. 2+ peripheral pitting edema. Pulses are present. NEUROLOGICAL: Patient is awake, but does not follow any commands. Blinks to threat. He is saying incomprehensible words. Assessment and Plan - Problem List (1) Toxic metabolic encephalopathy Code(s): G92 - Toxic encephalopathy Status: Acute (2) Septic shock Code(s): A41.9 - Sepsis, unspecified organism; R65.21 - Severe sepsis with septic shock Status: Acute (3) UTI (urinary tract infection) Code(s): N39.0 - Urinary tract infection, site not specified Status: Acute (4) Transaminitis Code(s): R74.0 - Nonspecific elevation of levels of transaminase and lactic acid dehydrogenase [LDH] Status: Acute (5) NSTEMI (non-ST elevated myocardial infarction) Code(s): I21.4 - Non-ST elevation (NSTEMI) myocardial infarction Status: Acute (6) Thrombocytopenia Code(s): D69.6 - Thrombocytopenia, unspecified Status: Acute (7) DIC (disseminated intravascular coagulation) Code(s): D65 - Disseminated intravascular coagulation [defibrination syndrome] Status: Acute (8) Renal failure Code(s): N19 - Unspecified kidney failure Status: Acute - Assessment and Plan Plan: 1. Acute encephalopathy, likely toxic metabolic -probably some degree of dementia at base, no improvement so far 2. Acute MT -followed by cardiology 3. Severe sepsis 4. UTI 5. Lactic/metabolic acidosis -lactic acid remains elevated despite adequate fluid resuscitation 6. Possible pneumonia 7. Transaminitis -liver enzymes are slowly trending down 8. JAVON -creatinine remains elevated, urine output remains low 9. Hypernatremia -worsening 10. Coagulopathy with thrombocytopenia -worsening 11. L2 compression deformity/acuity unknown 12. Moderate to large right-sided effusion 1. Continue supplemental O2 to keep SPO2 above 92% 2. Bronchodilators 3. Continue broad-spectrum antibiotics with Vanco and Zosyn. Cultures remain without growth to date 4. Stop LR and start D5W 5. Unable to place NG tube because of worsening thrombocytopenia and high risk of epistaxis. Maintain n.p.o. due to poor mental status 6. No aspirin and heparin due to worsening thrombocytopenia and coagulopathy 7. Continue beta-justin as BP allows 8. No statin due to elevated liver enzymes 9. Liver ultrasound reviewed -no gallstones 10. Echocardiogram is pending 11. Check lactic acid 12. Will need thoracentesis once his coagulopathy is improved. Check INR and fibrinogen 13. DVT prophylaxis with SCDs and GI prophylaxis with famotidine 14. Appreciate palliative care consult No family present at bedside. Patient is critically ill and at very high risk for further decompensation and . Prognosis is very poor. (8) Renal failure Qualifiers: Renal failure chronicity: unspecified chronicity Qualified Code(s): N19 - Unspecified kidney failure
[2017-10-05] MEDS ORDERED: Vancomycin Inj 1,000 MG in Sodium Chlor 0.9% Inj 250 ML IV.SIG ONE (11:00)
[2017-10-05] MEDS: Dextrose 5% in Water Inj 1,000 ML IV.CONT SCH (11:01)
--- NOTE | 2017-10-05 12:12 | P.CONPAL ---
Consult Service: Palliative Care Requesting Physician: Usha Martin Reason for Consult: a. To assist with evaluation and management of symptoms including: Confusion, dyspnea b. To assist medical decision maker(s) with: better understanding of current medical conditions; weighing benefits/burdens of medical treatment options; making medical treatment decisions. Primary Care Provider: UNKNOWN History of Present Illness History of Present Illness: This is an elderly male patient who presented to [facility] ED on 10/03/2017 as a Mario Schmidt after he was found in his apartment, unresponsive with the door open. He was initially unresponsive but aroused to sternal rub. He remained incoherent and appeared to be severely dehydrated. Multiple abrasions and bruising were noted on his upper and lower extremities as well as a contusion/ soft tissue swelling on his right hip and ecchymosis of the lumbar spine. There are wounds in various stages of healing on the patient's scalp. Additional diagnostic data: * Pulse: 111, respirations 20, BP 128 over 57, oxygen saturation 98% on room air , rectal temperature 99.1 * WBC: 12.8, hemoglobin 15.3, hematocrit 48.0, platelets 60, neutrophils 85% * PT: 23.5, INR 2.3, APTT 26.8 * Sodium: 147, potassium 5.1, chloride 112, glucose 85, calcium 8.7 * BUN: 67, creatinine 2.71, GFR 20 * Lactic acid: 8.3 * Total bilirubin: 3.3, AST 2566, ALT 1898, alkaline phosphatase 33 * Ammonia: 29 * Creatine kinase: 777 * CK-MB: 12.3 * Troponin: 6.68 * Total protein: 6.3, albumin 3.6 * Urinalysis consistent with UTI; urine culture pending * Blood cultures pending * Negative toxicology screen * Chest x-ray revealed a large right pleural effusion. Parenchymal opacity in the left base could represent pleural effusion or consolidation. No pneumothorax. * X-ray of the elbow showed discontinuity of the tip of the olecranon spur without soft tissue swelling. Could not exclude fracture. Recommend correlation of clinical exam for point tenderness in this area * Right hip x-ray negative for fracture * X-ray of the lumbar spine showed 60% anterior compression fracture of L2; no retropulsed fragment seen * CT cervical spine showed no evidence of compression deformity, fracture or spondylolisthesis. Advanced hypertrophic degenerative changes in the facet joints, more severe on the right. * CT head revealed moderately severe central cortical atrophy; no acute findings. * CT abdomen/pelvis showed bilateral pleural effusions (right greater than left) ; nonobstructing 4 mm stone in the right renal collecting system; 3.7 cm infrarenal abdominal aortic aneurysm; small fat-containing left inguinal hernia. * CT chest with large right and small left pleural effusion; no fractures seen; no evidence of pneumothorax. Patient received IV fluids and cefepime while in the ED. Multiple lab abnormalities were identified. WBC was elevated at 12.8 with 87% neutrophils; platelet count was 60; INR was 2.3. Urinalysis was consistent with UTI. Troponin was elevated at 6.8; lactic acid was 8.3; BUN 67; creatinine 2.71. Dr. Jaimes (cardiology) was consulted for possible STEMI; subsequent EKG was unremarkable. Due to patient's poor mentation and multi-organ failure, he was not a candidate for cardiac catheterization. Patient cannot receive aspirin or heparin due to his platelet count of 60,000 and INR of 2.3. Other abnormal labs included transaminitis and elevated CPK. Critically ill patient, admitted to ICU for further evaluation and medical management that included IV fluids and IV antibiotics. Patient is critically ill and at very high risk for further decompensation and . Prognosis is very poor. Palliative Care was consulted to assist with symptom management and to discuss with the patient/family the benefits and burdens of his current illnesses and the options regarding future care. In reviewing the medical record, there is no contact information for family. Accurint requested; awaiting results. Review of Systems unobtainable due to mental status [facility] - History History Provided By: Medical Record - Medical / Surgical Hx Neg / Unobtainable Medical Problems Denied: Unable to Obtain (Unable to obtain family medical history secondary to patient's altered mental status; no known family) - Medical History Medical History: Medical History (Last Updated 10/05/17 @ 14:51 by LAWSON Lewis) Abdominal aortic aneurysm (Acute) Hypertension (Acute) - Surgical History Surgical History: Surgical History (Last Updated 10/05/17 @ 14:51 by LAWSON Lewis) History of tonsillectomy and adenoidectomy - Tobacco History Smoking Status: Unknown if ever smoked - Alcohol History How Often Do You Have a Drink Containing Alcohol: Unable to Obtain - Substance Use History Substance History: Unable to Obtain - Immunization History Tetanus Immunization: Unable to Assess Medications and Allergies Active Medications: Active Medications Acetaminophen (Tylenol) 650 mg PO Q6H PRN PRN Reason: PAIN 1-10 AND/OR FEVER >101F Al Hydroxide/Mg Hydroxide (Milk Of Magnesia Liq) 30 ml PO Q12H PRN PRN Reason: Mild Constipation Albuterol (Duoneb Neb (Prn)) 1 ampul NEB Q2HR NEB PRN PRN Reason: WHEEZING Bisacodyl (Dulcolax Supp) 10 mg RECTAL DAILY PRN PRN Reason: SEVERE CONSITIPATION Chlorhexidine Gluconate (Chlorhexidine 2% Cloth) 3 pack TOPICAL DAILY@0400 [facility] Stop: 10/09/17 03:59 Last Admin: 10/05/17 06:29 Dose: 3 pack Chlorhexidine Gluconate (Chlorhexidine 2% Cloth) 3 pack TOPICAL DAILY@0400 PRN PRN Reason: Extra cloth needed Stop: 10/09/17 03:59 Famotidine (Pepcid Pf Inj) 10 mg IV.PUSH Q12HR [facility] Last Admin: 10/05/17 08:00 Dose: 10 mg Piperacillin/Tazobactam/Dextrose (Zosyn 3.375 Gm Premix) 50 mls @ 100 mls/hr IV.SIG Q8H [facility] Last Admin: 10/05/17 08:00 Dose: 100 mls/hr Dextrose (D5w Inj) 1,000 mls @ 84 mls/hr IV.CONT .[id number] [facility] Last Admin: 10/05/17 11:01 Dose: 84 mls/hr Vancomycin HCl 1,000 mg/ (Sodium Chloride) 250 mls @ 250 mls/hr IV.SIG ONCE ONE Stop: 10/05/17 11:59 Last Admin: 10/05/17 11:01 Dose: 250 mls/hr Lactulose (Lactulose Liq) 30 ml PO DAILY PRN PRN Reason: SEVERE CONSITIPATION Metoprolol Tartrate (Lopressor Inj) 2.5 mg IV.PUSH Q6HR [facility] Last Admin: 10/05/17 11:01 Dose: 2.5 mg Pharmacy Profile Note (Vancomycin Consult Pharmacy) 1 each OTHER UNSCH PRN PRN Reason: Pharmacy to dose Senna/Docusate Sodium (Brigette-Colace) 1 tab PO BID [facility] Last Admin: 10/05/17 08:00 Dose: Not Given Sennosides (Senokot) 17.2 mg PO Q12H PRN PRN Reason: Moderate Constipation Sodium Chloride (Ns Flush) 2 ml IV.FLUSH BID [facility] Last Admin: 10/05/17 08:00 Dose: 2 ml Sodium Chloride (Ns Flush) 2 ml IV.FLUSH PRN PRN PRN Reason: FLUSH AFTER USING IV ACCESS Allergies Allergy/AdvReac Type Severity Reaction Status Date / Time No Allergy Information Allergy Unverified 10/03/17 18:31 Available Home Medications Medication Instructions Recorded Confirmed Type Unable to Obtain Home Meds 10/03/17 10/03/17 History Advance Directives Documented care wishes: No known documented care wishes were completed. Today's verbally stated goals: Patient is unable to verbalize his medical treatment goals secondary to his altered mental status Family/friends goals: No family present Ethical and Legal Issues: No contact information for family in previous records. Accurint requested; awaiting results Physical Exam Vital Signs: Vital Signs - 24 hr 10/04/17 12:00 10/04/17 13:00 10/04/17 14:00 Temperature 97.9 F 97.9 F 97.7 F Pulse Rate 75 89 81 Respiratory Rate 38 H 15 37 H Blood Pressure 114/80 114/75 112/81 Pulse Oximetry 93 L 91 L 93 L 10/04/17 15:00 10/04/17 16:00 10/04/17 17:00 Temperature 97.7 F 97.7 F 97.7 F Pulse Rate 85 87 83 Respiratory Rate 25 H 38 H 22 Blood Pressure 107/75 105/75 119/77 Pulse Oximetry 94 L 90 L 91 L 10/04/17 18:00 10/04/17 19:00 10/04/17 20:00 Temperature 97.9 F 97.7 F 97.7 F Pulse Rate 85 80 81 Respiratory Rate 34 H 21 32 H Blood Pressure 105/63 107/73 109/82 Pulse Oximetry 95 96 95 10/04/17 20:15 10/04/17 21:00 10/04/17 22:00 Temperature Pulse Rate 83 82 Respiratory Rate 26 H 39 H Blood Pressure 107/75 108/75 Pulse Oximetry 93 L 92 L 89 L 10/04/17 23:00 10/05/17 00:00 10/05/17 01:00 Temperature 98.4 F Pulse Rate 83 86 84 Respiratory Rate 22 26 H 26 H Blood Pressure 112/73 109/70 105/70 Pulse Oximetry 89 L 92 L 95 10/05/17 02:00 10/05/17 03:00 10/05/17 04:00 Temperature 98.2 F Pulse Rate 82 77 90 Respiratory Rate 22 30 H 30 H Blood Pressure 105/65 106/67 120/77 Pulse Oximetry 93 L 92 L 90 L 10/05/17 05:00 10/05/17 06:00 10/05/17 07:00 Temperature 97.9 F Pulse Rate 77 84 79 Respiratory Rate 37 H 26 H 31 H Blood Pressure 105/73 117/76 115/81 Pulse Oximetry 95 92 L 96 10/05/17 08:00 10/05/17 09:00 10/05/17 10:00 Temperature 97.9 F 97.9 F 98.1 F Pulse Rate 84 81 84 Respiratory Rate 25 H 26 H 27 H Blood Pressure 114/78 114/77 115/78 Pulse Oximetry 96 100 92 L 10/05/17 11:00 Temperature 98.2 F Pulse Rate 90 Respiratory Rate 27 H Blood Pressure 117/73 Pulse Oximetry 95 I&O: Intake & Output 10/03/17 10/04/17 10/05/17 10/06/17 06:59 06:59 06:59 06:59 Intake Total 50 / 50 1150 / 1150 1000 / 1000 Output Total 800 / 800 525 / 525 Balance -750 / -750 625 / 625 1000 / 1000 Weight 65.8 kg 67.6 kg Physical Exam: CONSTITUTIONAL/GENERAL: This is a frail, elderly male patient who appears disheveled TUBES/LINES/DRAINS: PIV 2; Alberto catheter; nasal cannula SKIN: Abrasions and bruising on upper and lower extremities bilaterally no wounds seen anteriorly. Skin temperature appropriate. Not diaphoretic. HEAD: Atraumatic. Normocephalic. EYES: Pupils equal and round. No scleral icterus. No injection or drainage. Fundi not examined. ENT: Hearing grossly normal. Nose without bleeding or purulent drainage. Dry mucous membranes NECK: Trachea midline. Supple, nontender. No palpable thyroid enlargement or nodularity. CARDIOVASCULAR: Regular rate and rhythm without murmurs, gallops, or rubs. No JVD. RESPIRATORY/CHEST: Scattered coarse breath sounds, decreased in bases bilaterally. No wheezing. GASTROINTESTINAL: Abdomen soft, non-tender, nondistended. No hepato-splenomegaly , or palpable masses. No guarding. Bowel sounds hypoactive GENITOURINARY: Without palpable bladder distension. Alberto catheter draining tea colored urine MUSCULOSKELETAL: Extremities without clubbing or cyanosis. 2+ peripheral pitting edema. Muscle wasting in all extremities; hectic appearance LYMPHATICS: No palpable cervical or supraclavicular adenopathy. NEUROLOGICAL: Awake; confused. Unable to follow commands. Garbled speech PSYCHIATRIC: No obvious anxiety/depression. No apparent hallucinations or other psychotic thought process. Diagnostic Tests Laboratory: Laboratory Results - last 72 hr 10/03/17 10/03/17 10/03/17 18:45 18:45 18:45 WBC RBC Hgb Hct MCV MCH MCHC RDW Plt Count MPV Prelim Diff (Auto) Neut % (Auto) Lymph % (Auto) [place] % (Auto) Eos % (Auto) Baso % (Auto) Neut # (Auto) Lymph # (Auto) [place] # (Auto) Eos # (Auto) Baso # (Auto) WBC Differential Seg Neuts % (Manual) Band Neuts % (Manual) Lymphocytes % (Manual) Monocytes % (Manual) Abs Neuts (Manual) Nucleated RBCs/100 WBC Differential Comment Toxic Granulation Platelet Estimate Platelet Morphology Basophilic Stippling Spherocytes Ovalocytes PT 23.5 H INR 2.3 APTT 26.8 Puncture Site Patient Temperature O2 Saturation ABG pH ABG pCO2 ABG pO2 ABG HCO3 ABG O2 Content ABG Base Excess ABG Methemoglobin Hemoglobin Carboxyhemoglobin O2 Delivery Device Liter Flow Critical Value Sodium Potassium Chloride Carbon Dioxide Anion Gap BUN Creatinine Estimated GFR POC Glucose Random Glucose Lactic Acid Calcium Prot Corrected Calcium Phosphorus Magnesium Total Bilirubin AST ALT Alkaline Phosphatase Ammonia Total Creatine Kinase CK-MB (CK-2) CK-MB (CK-2) % Troponin I Total Protein Albumin Vitamin B12 TSH Cancelled Urine Color Urine Clarity Urine pH Ur Specific [place] Urine Protein Urine Glucose (UA) Urine Ketones Urine Occult Blood Urine Nitrate Urine Bilirubin Urine Urobilinogen Ur Leukocyte Esterase Urine RBC Urine WBC Ur Squamous Epith Cells Amorphous Sediment Urine Bacteria Hyaline Casts Granular Casts Urine Mucus Micro UA Comment Ur Microscopic Review Urine Culture Comments Nasal Screen MRSA (PCR) Random Vancomycin Salicylates Less than 1.7 L Urine Opiates Screen Ur Barbiturates Screen Ur Amphetamines Screen U Benzodiazepines Scrn Urine Cocaine Screen U Cannabinoids Screen Serum Alcohol Cancelled Hepatitis A IgM Ab Hep Bs Antigen Hep B Core IgM Ab Hep C IgG Ab Blood Type Antibody Screen 10/03/17 10/03/17 10/03/17 18:45 18:45 18:45 WBC RBC Hgb Hct MCV MCH MCHC RDW Plt Count MPV Prelim Diff (Auto) Neut % (Auto) Lymph % (Auto) [place] % (Auto) Eos % (Auto) Baso % (Auto) Neut # (Auto) Lymph # (Auto) [place] # (Auto) Eos # (Auto) Baso # (Auto) WBC Differential Seg Neuts % (Manual) Band Neuts % (Manual) Lymphocytes % (Manual) Monocytes % (Manual) Abs Neuts (Manual) Nucleated RBCs/100 WBC Differential Comment Toxic Granulation Platelet Estimate Platelet Morphology Basophilic Stippling Spherocytes Ovalocytes PT INR APTT Puncture Site Patient Temperature O2 Saturation ABG pH ABG pCO2 ABG pO2 ABG HCO3 ABG O2 Content ABG Base Excess ABG Methemoglobin Hemoglobin Carboxyhemoglobin O2 Delivery Device Liter Flow Critical Value Sodium 147 H Potassium 5.1 Chloride 112 H Carbon Dioxide 13.4 L Anion Gap 22 H BUN 67 H Creatinine 2.71 H Estimated GFR 20 L POC Glucose Random Glucose 85 Lactic Acid Calcium 8.7 Prot Corrected Calcium Phosphorus Magnesium Total Bilirubin 3.3 H AST 2566 H ALT 1898 H Alkaline Phosphatase 33 L Ammonia Total Creatine Kinase 777 H Cancelled CK-MB (CK-2) 12.3 H CK-MB (CK-2) % 1.6 Troponin I 6.68 H* Total Protein 6.3 L Albumin 3.6 Vitamin B12 TSH 0.768 Urine Color Urine Clarity Urine pH Ur Specific [place] Urine Protein Urine Glucose (UA) Urine Ketones Urine Occult Blood Urine Nitrate Urine Bilirubin Urine Urobilinogen Ur Leukocyte Esterase Urine RBC Urine WBC Ur Squamous Epith Cells Amorphous Sediment Urine Bacteria Hyaline Casts Granular Casts Urine Mucus Micro UA Comment Ur Microscopic Review Urine Culture Comments Nasal Screen MRSA (PCR) Random Vancomycin Salicylates Urine Opiates Screen Ur Barbiturates Screen Ur Amphetamines Screen U Benzodiazepines Scrn Urine Cocaine Screen U Cannabinoids Screen Serum Alcohol Less than 3 Hepatitis A IgM Ab Hep Bs Antigen Hep B Core IgM Ab Hep C IgG Ab Blood Type B Positive Antibody Screen Negative 10/03/17 10/03/17 10/03/17 18:50 18:50 19:00 WBC RBC Hgb Hct MCV MCH MCHC RDW Plt Count MPV Prelim Diff (Auto) Neut % (Auto) Lymph % (Auto) [place] % (Auto) Eos % (Auto) Baso % (Auto) Neut # (Auto) Lymph # (Auto) [place] # (Auto) Eos # (Auto) Baso # (Auto) WBC Differential Seg Neuts % (Manual) Band Neuts % (Manual) Lymphocytes % (Manual) Monocytes % (Manual) Abs Neuts (Manual) Nucleated RBCs/100 WBC Differential Comment Toxic Granulation Platelet Estimate Platelet Morphology Basophilic Stippling Spherocytes Ovalocytes PT INR APTT Puncture Site Patient Temperature O2 Saturation ABG pH ABG pCO2 ABG pO2 ABG HCO3 ABG O2 Content ABG Base Excess ABG Methemoglobin Hemoglobin Carboxyhemoglobin O2 Delivery Device Liter Flow Critical Value Sodium Potassium Chloride Carbon Dioxide Anion Gap BUN Creatinine Estimated GFR POC Glucose Random Glucose Lactic Acid 8.3 H* Calcium Prot Corrected Calcium Phosphorus Magnesium Total Bilirubin AST ALT Alkaline Phosphatase Ammonia 29 Total Creatine Kinase CK-MB (CK-2) CK-MB (CK-2) % Troponin I Total Protein Albumin Vitamin B12 TSH Urine Color Dee Urine Clarity Cloudy H Urine pH 5.0 Ur Specific [place] 1.019 Urine Protein 100 H Urine Glucose (UA) 50 Urine Ketones Negative Urine Occult Blood Moderate H Urine Nitrate Negative Urine Bilirubin Negative Urine Urobilinogen Less than 2 Ur Leukocyte Esterase Negative Urine RBC 2 Urine WBC 4 Ur Squamous Epith Cells 1 Amorphous Sediment Few H Urine Bacteria Occasional H Hyaline Casts Innum Granular Casts 13 Urine Mucus Few H Micro UA Comment Cath-culture ind Ur Microscopic Review Not Reportable Urine Culture Comments Cath-cult indicated Nasal Screen MRSA (PCR) Random Vancomycin Salicylates Urine Opiates Screen Ur Barbiturates Screen Ur Amphetamines Screen U Benzodiazepines Scrn Urine Cocaine Screen U Cannabinoids Screen Serum Alcohol Hepatitis A IgM Ab Hep Bs Antigen Hep B Core IgM Ab Hep C IgG Ab Blood Type Antibody Screen 10/03/17 10/03/17 10/03/17 19:00 19:25 23:05 WBC 12.8 H RBC 4.94 Hgb 15.3 Hct 48.0 MCV 97.3 MCH 31.0 MCHC 31.9 L RDW 15.7 Plt Count 60 L MPV 11.7 H Prelim Diff (Auto) Slide review pending Neut % (Auto) 85.0 H Lymph % (Auto) 4.6 L [place] % (Auto) 10.3 H Eos % (Auto) 0.0 Baso % (Auto) 0.1 Neut # (Auto) 10.9 H Lymph # (Auto) 0.6 L [place] # (Auto) 1.3 H Eos # (Auto) 0.0 Baso # (Auto) 0.0 WBC Differential Manual diff final Seg Neuts % (Manual) 87 H Band Neuts % (Manual) 3 Lymphocytes % (Manual) 3 L Monocytes % (Manual) 7 Abs Neuts (Manual) 11.5 H Nucleated RBCs/100 WBC Differential Comment . Toxic Granulation 2+ H Platelet Estimate Low L Platelet Morphology Enlarged H Basophilic Stippling Faint H Spherocytes Occ H Ovalocytes 1+ H PT INR APTT Puncture Site Patient Temperature O2 Saturation ABG pH ABG pCO2 ABG pO2 ABG HCO3 ABG O2 Content ABG Base Excess ABG Methemoglobin Hemoglobin Carboxyhemoglobin O2 Delivery Device Liter Flow Critical Value Sodium Potassium Chloride Carbon Dioxide Anion Gap BUN Creatinine Estimated GFR POC Glucose Random Glucose Lactic Acid 6.9 H* Calcium Prot Corrected Calcium Phosphorus Magnesium Total Bilirubin AST ALT Alkaline Phosphatase Ammonia Total Creatine Kinase CK-MB (CK-2) CK-MB (CK-2) % Troponin I Total Protein Albumin Vitamin B12 TSH Urine Color Urine Clarity Urine pH Ur Specific [place] Urine Protein Urine Glucose (UA) Urine Ketones Urine Occult Blood Urine Nitrate Urine Bilirubin Urine Urobilinogen Ur Leukocyte Esterase Urine RBC Urine WBC Ur Squamous Epith Cells Amorphous Sediment Urine Bacteria Hyaline Casts Granular Casts Urine Mucus Micro UA Comment Ur Microscopic Review Urine Culture Comments Nasal Screen MRSA (PCR) Random Vancomycin Salicylates Urine Opiates Screen Neg Ur Barbiturates Screen Neg Ur Amphetamines Screen Neg U Benzodiazepines Scrn Neg Urine Cocaine Screen Neg U Cannabinoids Screen Neg Serum Alcohol Hepatitis A IgM Ab Hep Bs Antigen Hep B Core IgM Ab Hep C IgG Ab Blood Type Antibody Screen 10/03/17 10/04/17 10/04/17 23:51 00:31 01:46 WBC RBC Hgb Hct MCV MCH MCHC RDW Plt Count MPV Prelim Diff (Auto) Neut % (Auto) Lymph % (Auto) [place] % (Auto) Eos % (Auto) Baso % (Auto) Neut # (Auto) Lymph # (Auto) [place] # (Auto) Eos # (Auto) Baso # (Auto) WBC Differential Seg Neuts % (Manual) Band Neuts % (Manual) Lymphocytes % (Manual) Monocytes % (Manual) Abs Neuts (Manual) Nucleated RBCs/100 WBC Differential Comment Toxic Granulation Platelet Estimate Platelet Morphology Basophilic Stippling Spherocytes Ovalocytes PT INR APTT Puncture Site Right brachial Patient Temperature 98.6 O2 Saturation 94 ABG pH 7.32 L ABG pCO2 24 L* ABG pO2 100 ABG HCO3 12 L* ABG O2 Content 21.0 H ABG Base Excess -13.3 L ABG Methemoglobin 0.6 Hemoglobin 15.8 Carboxyhemoglobin 0.5 O2 Delivery Device Nasal cannula Liter Flow 6.00 Critical Value Yes Sodium Potassium Chloride Carbon Dioxide Anion Gap BUN Creatinine Estimated GFR POC Glucose Random Glucose Lactic Acid Calcium Prot Corrected Calcium Phosphorus Magnesium Total Bilirubin AST ALT Alkaline Phosphatase Ammonia Total Creatine Kinase CK-MB (CK-2) CK-MB (CK-2) % Troponin I 5.30 H* Total Protein Albumin Vitamin B12 TSH Urine Color Urine Clarity Urine pH Ur Specific [place] Urine Protein Urine Glucose (UA) Urine Ketones Urine Occult Blood Urine Nitrate Urine Bilirubin Urine Urobilinogen Ur Leukocyte Esterase Urine RBC Urine WBC Ur Squamous Epith Cells Amorphous Sediment Urine Bacteria Hyaline Casts Granular Casts Urine Mucus Micro UA Comment Ur Microscopic Review Urine Culture Comments Nasal Screen MRSA (PCR) Not detected Random Vancomycin Salicylates Urine Opiates Screen Ur Barbiturates Screen Ur Amphetamines Screen U Benzodiazepines Scrn Urine Cocaine Screen U Cannabinoids Screen Serum Alcohol Hepatitis A IgM Ab Hep Bs Antigen Hep B Core IgM Ab Hep C IgG Ab Blood Type Antibody Screen 10/04/17 10/04/17 10/04/17 02:17 07:17 07:17 WBC 13.3 H RBC 5.11 Hgb 15.8 Hct 48.9 MCV 95.7 MCH 30.8 MCHC 32.2 RDW 15.8 Plt Count 47 L MPV 11.1 H Prelim Diff (Auto) Slide review pending Neut % (Auto) 87.9 H Lymph % (Auto) 4.4 L [place] % (Auto) 7.2 Eos % (Auto) 0.0 Baso % (Auto) 0.5 Neut # (Auto) 11.7 H Lymph # (Auto) 0.6 L [place] # (Auto) 1.0 H Eos # (Auto) 0.0 Baso # (Auto) 0.1 WBC Differential Manual diff final Seg Neuts % (Manual) 90 H Band Neuts % (Manual) 2 Lymphocytes % (Manual) 3 L Monocytes % (Manual) 5 Abs Neuts (Manual) 12.2 H Nucleated RBCs/100 WBC 3 H Differential Comment . Toxic Granulation Platelet Estimate Low L Platelet Morphology Normal Basophilic Stippling Spherocytes Ovalocytes PT INR APTT Puncture Site Patient Temperature O2 Saturation ABG pH ABG pCO2 ABG pO2 ABG HCO3 ABG O2 Content ABG Base Excess ABG Methemoglobin Hemoglobin Carboxyhemoglobin O2 Delivery Device Liter Flow Critical Value Sodium 153 H Potassium 3.9 D Chloride 118 H Carbon Dioxide 19.4 L Anion Gap 16 H BUN 63 H Creatinine 2.13 H Estimated GFR 27 L POC Glucose 112 H Random Glucose 140 H Lactic Acid Calcium 7.3 L* D Prot Corrected Calcium 8.2 L Phosphorus 5.9 H Magnesium Total Bilirubin 4.1 H AST 2568 H ALT 2212 H Alkaline Phosphatase 28 L Ammonia Total Creatine Kinase CK-MB (CK-2) CK-MB (CK-2) % Troponin I 8.31 H* Total Protein 5.5 L D Albumin 3.2 L Vitamin B12 Greater than 2000 H TSH Urine Color Urine Clarity Urine pH Ur Specific [place] Urine Protein Urine Glucose (UA) Urine Ketones Urine Occult Blood Urine Nitrate Urine Bilirubin Urine Urobilinogen Ur Leukocyte Esterase Urine RBC Urine WBC Ur Squamous Epith Cells Amorphous Sediment Urine Bacteria Hyaline Casts Granular Casts Urine Mucus Micro UA Comment Ur Microscopic Review Urine Culture Comments Nasal Screen MRSA (PCR) Random Vancomycin Salicylates Urine Opiates Screen Ur Barbiturates Screen Ur Amphetamines Screen U Benzodiazepines Scrn Urine Cocaine Screen U Cannabinoids Screen Serum Alcohol Hepatitis A IgM Ab Hep Bs Antigen Hep B Core IgM Ab Hep C IgG Ab Blood Type Antibody Screen 10/04/17 10/04/17 10/04/17 10:50 10:50 13:08 WBC RBC Hgb Hct MCV MCH MCHC RDW Plt Count MPV Prelim Diff (Auto) Neut % (Auto) Lymph % (Auto) [place] % (Auto) Eos % (Auto) Baso % (Auto) Neut # (Auto) Lymph # (Auto) [place] # (Auto) Eos # (Auto) Baso # (Auto) WBC Differential Seg Neuts % (Manual) Band Neuts % (Manual) Lymphocytes % (Manual) Monocytes % (Manual) Abs Neuts (Manual) Nucleated RBCs/100 WBC Differential Comment Toxic Granulation Platelet Estimate Platelet Morphology Basophilic Stippling Spherocytes Ovalocytes PT INR APTT 32.3 H D Puncture Site Patient Temperature O2 Saturation ABG pH ABG pCO2 ABG pO2 ABG HCO3 ABG O2 Content ABG Base Excess ABG Methemoglobin Hemoglobin Carboxyhemoglobin O2 Delivery Device Liter Flow Critical Value Sodium Potassium Chloride Carbon Dioxide Anion Gap BUN Creatinine Estimated GFR POC Glucose 120 H Random Glucose Lactic Acid 5.4 H* Calcium Prot Corrected Calcium Phosphorus Magnesium Total Bilirubin AST ALT Alkaline Phosphatase Ammonia Total Creatine Kinase CK-MB (CK-2) CK-MB (CK-2) % Troponin I Total Protein Albumin Vitamin B12 TSH Urine Color Urine Clarity Urine pH Ur Specific [place] Urine Protein Urine Glucose (UA) Urine Ketones Urine Occult Blood Urine Nitrate Urine Bilirubin Urine Urobilinogen Ur Leukocyte Esterase Urine RBC Urine WBC Ur Squamous Epith Cells Amorphous Sediment Urine Bacteria Hyaline Casts Granular Casts Urine Mucus Micro UA Comment Ur Microscopic Review Urine Culture Comments Nasal Screen MRSA (PCR) Random Vancomycin Salicylates Urine Opiates Screen Ur Barbiturates Screen Ur Amphetamines Screen U Benzodiazepines Scrn Urine Cocaine Screen U Cannabinoids Screen Serum Alcohol Hepatitis A IgM Ab Hep Bs Antigen Hep B Core IgM Ab Hep C IgG Ab Blood Type Antibody Screen 10/04/17 10/04/17 10/04/17 14:34 14:34 14:34 WBC RBC Hgb Hct MCV MCH MCHC RDW Plt Count MPV Prelim Diff (Auto) Neut % (Auto) Lymph % (Auto) Redwood % (Auto) Eos % (Auto) Baso % (Auto) Neut # (Auto) Lymph # (Auto) Redwood # (Auto) Eos # (Auto) Baso # (Auto) WBC Differential Seg Neuts % (Manual) Band Neuts % (Manual) Lymphocytes % (Manual) Monocytes % (Manual) Abs Neuts (Manual) Nucleated RBCs/100 WBC Differential Comment Toxic Granulation Platelet Estimate Platelet Morphology Basophilic Stippling Spherocytes Ovalocytes PT INR APTT Puncture Site Patient Temperature O2 Saturation ABG pH ABG pCO2 ABG pO2 ABG HCO3 ABG O2 Content ABG Base Excess ABG Methemoglobin Hemoglobin Carboxyhemoglobin O2 Delivery Device Liter Flow Critical Value Sodium Potassium Chloride Carbon Dioxide Anion Gap BUN Creatinine Estimated GFR POC Glucose Random Glucose Lactic Acid 5.4 H* Calcium Prot Corrected Calcium Phosphorus Magnesium Total Bilirubin AST ALT Alkaline Phosphatase Ammonia Total Creatine Kinase 785 H CK-MB (CK-2) 26.1 H CK-MB (CK-2) % 3.3 Troponin I Total Protein Albumin Vitamin B12 TSH Urine Color Urine Clarity Urine pH Ur Specific [place] Urine Protein Urine Glucose (UA) Urine Ketones Urine Occult Blood Urine Nitrate Urine Bilirubin Urine Urobilinogen Ur Leukocyte Esterase Urine RBC Urine WBC Ur Squamous Epith Cells Amorphous Sediment Urine Bacteria Hyaline Casts Granular Casts Urine Mucus Micro UA Comment Ur Microscopic Review Urine Culture Comments Nasal Screen MRSA (PCR) Random Vancomycin Salicylates Urine Opiates Screen Ur Barbiturates Screen Ur Amphetamines Screen U Benzodiazepines Scrn Urine Cocaine Screen U Cannabinoids Screen Serum Alcohol Hepatitis A IgM Ab Nonreactive Hep Bs Antigen Nonreactive Hep B Core IgM Ab Nonreactive Hep C IgG Ab Nonreactive Blood Type Antibody Screen 10/05/17 10/05/17 10/05/17 05:06 05:06 07:49 WBC 11.6 H RBC 5.23 Hgb 16.1 Hct 50.9 MCV 97.3 MCH 30.8 MCHC 31.6 L RDW 15.9 Plt Count 29 L D MPV 11.8 H Prelim Diff (Auto) Slide review pending Neut % (Auto) 90.1 H Lymph % (Auto) 4.9 L Redwood % (Auto) 4.9 Eos % (Auto) 0.0 Baso % (Auto) 0.1 Neut # (Auto) 10.5 H Lymph # (Auto) 0.6 L Redwood # (Auto) 0.6 Eos # (Auto) 0.0 Baso # (Auto) 0.0 WBC Differential Manual diff final Seg Neuts % (Manual) 92 H Band Neuts % (Manual) 4 Lymphocytes % (Manual) 1 L Monocytes % (Manual) 3 Abs Neuts (Manual) 11.1 H Nucleated RBCs/100 WBC 1 H Differential Comment . Toxic Granulation 1+ H Platelet Estimate Low L Platelet Morphology Enlarged H Basophilic Stippling Spherocytes Ovalocytes PT INR APTT Puncture Site Patient Temperature O2 Saturation ABG pH ABG pCO2 ABG pO2 ABG HCO3 ABG O2 Content ABG Base Excess ABG Methemoglobin Hemoglobin Carboxyhemoglobin O2 Delivery Device Liter Flow Critical Value Sodium 155 H Potassium 4.2 Chloride 118 H Carbon Dioxide 19.3 L Anion Gap 18 H BUN 81 H Creatinine 2.05 H Estimated GFR 28 L POC Glucose 145 H Random Glucose 97 Lactic Acid Calcium 7.6 L Prot Corrected Calcium Phosphorus 6.3 H Magnesium 2.6 H Total Bilirubin 4.5 H AST 1076 H ALT 1817 H Alkaline Phosphatase 26 L Ammonia Total Creatine Kinase 759 H CK-MB (CK-2) 20.3 H CK-MB (CK-2) % 2.7 Troponin I Total Protein 5.0 L Albumin 2.9 L Vitamin B12 TSH Urine Color Urine Clarity Urine pH Ur Specific [place] Urine Protein Urine Glucose (UA) Urine Ketones Urine Occult Blood Urine Nitrate Urine Bilirubin Urine Urobilinogen Ur Leukocyte Esterase Urine RBC Urine WBC Ur Squamous Epith Cells Amorphous Sediment Urine Bacteria Hyaline Casts Granular Casts Urine Mucus Micro UA Comment Ur Microscopic Review Urine Culture Comments Nasal Screen MRSA (PCR) Random Vancomycin 7.0 Salicylates Urine Opiates Screen Ur Barbiturates Screen Ur Amphetamines Screen U Benzodiazepines Scrn Urine Cocaine Screen U Cannabinoids Screen Serum Alcohol Hepatitis A IgM Ab Hep Bs Antigen Hep B Core IgM Ab Hep C IgG Ab Blood Type Antibody Screen Result Diagrams: 10/05/17 05:06 10/05/17 05:06 Microbiology: Microbiology 10/03/17 19:00 Urine Culture - Final Catheterized Urine No growth in 48 hours 10/03/17 18:40 Aerobic Blood Culture - Preliminary Blood - Line No growth in 2 days Anaerobic Blood Culture - Preliminary No growth in 2 days 10/03/17 18:45 Aerobic Blood Culture - Preliminary Blood - Line No growth in 2 days Anaerobic Blood Culture - Preliminary No growth in 2 days Imaging: Chest X-Ray 10/03/17 18:31 CONCLUSION: Large right pleural effusion. Parenchymal opacity at the left base could represent pleural effusion or consolidation. No pneumothorax seen. Elbow X-Ray 10/03/17 18:31 CONCLUSION: There is discontinuity of the tip of a small olecranon spur without soft tissue swelling. Cannot exclude a fracture. Recommend correlation with clinical exam for point tenderness in this area. Hip X-Ray 10/03/17 18:31 CONCLUSION: No fracture seen. Lumbar Spine X-Ray 10/03/17 18:31 CONCLUSION: 60% anterior compression fracture of L2. No retropulsed fragments seen. Cervical Spine CT 10/03/17 18:35 CONCLUSION: 1. No evidence of compression deformity, fracture, or spondylolisthesis. 2. Advanced hypertrophic degenerative changes in the facet joints, more severe on the right. Head CT 10/03/17 18:35 CONCLUSION: 1. Moderate moderate severity central cortical atrophy. No acute findings in the brain. . Abdomen/Pelvis CT 10/03/17 18:38 CONCLUSION: 1. Bilateral pleural effusions, right greater than left. 2. Nonobstructing 4 mm stone in the right renal collecting system. 3. 3.7 cm infrarenal abdominal aortic aneurysm. 4. Small fat-containing left inguinal hernia. Chest CT 10/03/17 18:38 CONCLUSION: 1. Large right and small left pleural effusion. 2. No fracture seen. No evidence of pneumothorax. Liver Ultrasound 10/04/17 00:00 CONCLUSION: 1. No evidence of gallstones or biliary tract obstruction. 2. There is a cyst along the upper pole the right kidney measuring 3 cm. 3. Bilateral pleural effusions. Patient/Family Conference Issues Discussed: * Palliative care role, purpose, approach * Additional medical, psychosocial, and spiritual history * Patients general health, functional status, and cognitive changes in the months leading up to the current hospitalization * Patient/family understanding of the current medical problems * Patient/family understanding of prognosis * Patients goals of care as best understood from advance directives and/or conversations and/or values * Current medical treatment options and benefits/burdens of those options * Likely scenarios comparing ongoing aggressive care with a transition to comfort measures only * Questions answered to the best of my ability * Palliative care contact information provided Assessment and Plan - Disease Oriented Problem List (1) Pleural effusion (2) JAVON (acute kidney injury) (3) Toxic metabolic encephalopathy (4) Septic shock (5) UTI (urinary tract infection) (6) Transaminitis (7) NSTEMI (non-ST elevated myocardial infarction) (8) Thrombocytopenia (9) Renal failure - Symptom Scale (1) Confusion 0-10 Scale: Unable to quantify (2) Dyspnea 0-10 Scale: Unable to quantify Pertinent Non-Medical Issues: Psychosocial: Patient is originally from [place], [place]. He moved to [place], [place] in 1991. He was twice, twice. Patient has 2 children from his first marriage (Kayy Bryanna and Pablo), and one child (Paul) from his second marriage. He reportedly has had no contact with his children. His parents are . He has 5 brothers and one sister but apparently has not had any contact with him for many years. Patient graduated from high school; he had a variety of different jobs. Spiritual: Patient is unable to provide this information due to his altered mentation/confusion. Legal: Accurate in's requested, awaiting results Ethical issues impacting care: No known ethical issues impacting care at this time Prognosis: Patient is a severely debilitated 82-year-old male with multiorgan failure and severe sepsis. Patient is critically ill and at very high risk for further decompensation and . Prognosis is very poor. Code Status: Full Code Plan: = FULL CODE = Case management (Jace Cunningham) spoke to the patient's landlord (Hazel Neely #) who stated the patient has been renting a room from him for the last 20 years; to his knowledge the patient does not have any family. CM also spoke with the patient's PCP and Madinajesse Acevedo who is a department chairperson from the doctor' s office. It is unclear what Ms. Acevedo' relationship is to the patient, but she is willing to act in the role of healthcare proxy decision-maker. Will need to exercise due diligence in our attempts to find family members before allowing Ms. Acevedo to act in the roll of HCP decision maker. = No contact information for family in previous records. Accurint requested; awaiting results. = Symptom management: ++ Dyspnea: Respirations unlabored on exam. CT chest revealed large right and small left pleural effusion. No evidence of pneumothorax. Possible pneumonia. Patient is at high risk for further decompensation. ++ Confusion: Patient's mental status remains unchanged. He is lethargic but arousable. Speech is garbled; patient does not follow commands. Acute encephalopathy likely multi-factorial. Contributing factors may include metabolic imbalance, sepsis, UTI, pain, constipation etc. CT head revealed moderately severe central cortical atrophy but no acute process. = Palliative care will continue to follow this patient throughout his hospitalization to establish trust, assist with symptom management and clarification of medical treatment goals. Appreciation Thank you for the opportunity to participate in the care of Pablo Slater. Attestation Attestation: To help prompt me to consider important information that might be impacting today's encounter and assessment, information from prior notes written by myself or my colleagues may have been "brought forward" into today's note. My signature on this note, however, is an attestation that I personally performed the exam, history, and/or decision-making noted today, and, unless otherwise indicated, the interactions with patient, family, and staff as well as the review of records all occurred today. I also attest that the listed assessment and stated plan reflect my best clinical judgment today based on the combination of historical information, prior notes, and today's exam/ interactions. When time spent is documented, it refers only to time spent today by the signer, or if indicated, combined time spent today by collaborating physician/nurse practitioner.
[2017-10-05 12:19] LABS: INR 3.2 Ratio; Prothrombin Time 32.1 sec (9.8-11.6)
[2017-10-05 21:21] LABS: ABG Base Excess -7.8 mmol/L (-2-2); ABG PCO2 32 mmHg (38-42); ABG PO2 70 mmHG (61-120)
[2017-10-05] MEDS ORDERED: Etomidate Inj 20 MG/10 ML Ampul IV.PUSH ONE (22:26)
--- NOTE | 2017-10-05 23:21 | P.PCN ---
Date of procedure: 10/05/17 Procedure: PROCEDURE NOTE PROCEDURE: Endotracheal intubation INDICATION: Acute respiratory failure. DETAILS OF PROCEDURE: The patient was placed in optimal position and preoxygenated with 100% FiO2 via [id number]. Oximeter oxygen saturation of 92% was obtained prior to direct laryngoscopy. The patient was administered Etomidate 20 mg IV and rocuronium 50 mg IV for sedation. Direct laryngoscopy was performed with a 3 Esparza laryngoscope blade and a grade I Cormack-Lehane view was obtained, though there was some blood encountered in back of throat and clot adherent to palate. On single attempt a size 8.0 endotracheal tube was visualized passing through the cords. Correct placement was confirmed with colorimetric CO2 detector. Breath sounds were equal bilaterally. No sounds auscultated over the stomach. The endotracheal tube was secured with a commercial tube gaines at a depth of 24 at the lips. The patient was connected to the ventilator. The patient tolerated the procedure well without any apparent complicatino. Oxygen saturations were maintained greater than 92% at all times. Stat chest x-ray was ordered and demonstrated satisfactory endotracheal tube position..
[2017-10-05] MEDS: fentaNYL 10 mcg/mL Premix Drip 2,500 MCG/250 ML BAG IV.SIG PRN (23:27)
--- NOTE | 2017-10-05 23:59 | XR ---
EXAM DATE: 10/05/2017 11:42 PM EDT AGE/SEX: 82 years / Male INDICATIONS: Intubation. CLINICAL DATA: This is the patient's subsequent encounter. Patient reports that signs and symptoms h ave been present for 3 days and indicates a pain score of Nonresponsive. MEDICAL/SURGICAL HISTORY: Non-responsive. Non-responsive. COMPARISON: C, CHEST 1V SINGLE AP, 10/03/2017. . FINDINGS: Bilateral pleural effusions, right greater than left with concomitant atelectatic changes in the left base. Heart size is borderline prominent. Stable probable granulomatous type calcifications in the r ight mid chest. Interval placement of an endotracheal tube tip appropriately positioned above the ca david the level of the aortic arch. Degenerative spurring of the thoracolumbar spine CONCLUSION: 1. Interval placement of an endotracheal tube with the tip appropriately positioned above the jose angel at the level of the aortic arch 2. Persistent bibasilar areas of consolidation with probable bilateral pleural effusions, right grea ter than left. Electronically signed by: Vitaly Leo MD 10/05/2017 11:57 PM EDT
[2017-10-06] MEDS: Piperacil/Tazo 3.375 GM Premix 50 ML IV.SIG SCH ×4 (00:22→23:31)
[2017-10-06] MEDS: Metoprolol Inj 5 MG/5 ML Vial IV.PUSH SCH ×2 (00:23→05:38)
[2017-10-06 00:31] LABS: ABG Base Excess -7.7 mmol/L (-2-2); ABG PCO2 32 mmHg (38-42); ABG PO2 408 mmHG (61-120)
[2017-10-06 05:30] LABS: Baso % (Auto) 0.2 % (0.0-2.0); Hematocrit 43.6 % (39.0-51.0); Hemoglobin 14.2 gm/dL (13.0-17.0); Lymph # (Auto) 0.8 th/mm3 (1.0-4.8); Lymph % (Auto) 7.1 % (9.0-44.0); Mean Corpuscular HGB Conc 32.6 % (32.0-36.0); Mean Corpuscular Hemoglobin 31.1 pg (27.0-34.0); Mean Corpuscular Volume 95.5 fL (80.0-100.0); Mean Platelet Volume 13.5 fL (7.0-11.0); Mono # (Auto) 0.9 th/mm3 (0.0-0.9); Mono % (Auto) 8.1 % (0.0-8.0); Neut # (Auto) 9.8 th/mm3 (1.8-7.7); Neut % (Auto) 84.6 % (16.0-70.0); Platelet Count 33 th/mm3 (150-450); Red Blood Count 4.57 mil/mm3 (4.50-5.90); Red Cell Distribution Width 15.8 % (11.6-17.2); White Blood Count 11.6 th/mm3 (4.0-11.0)
[2017-10-06 06:12] LABS: Albumin 2.1 g/dL (3.4-5.0); Calcium 6.6 mg/dL (8.5-10.1); Carbon Dioxide 20.8 meq/L (21.0-32.0); Magnesium 2.5 mg/dL (1.5-2.5); Phosphorus 5.8 mg/dL (2.5-4.9); Potassium 4.3 meq/L (3.5-5.1); Vancomycin,Random 12.4 Comment
[2017-10-06] MEDS: Chlorhexidine Gluconate 2% 1 Pack (2 Cloths) TOPICAL SCH (06:18)
[2017-10-06] MEDS: Dextrose 5% in Water Inj 1,000 ML IV.CONT SCH ×3 (06:19→23:33)
[2017-10-06 06:58] LABS: Lymphocytes 5 % (9-44); Monocytes 2 % (0-8); Tallied Nucleated RBC 3 (0-0)
[2017-10-06 07:00] LABS: Burr Cells 1+; Ovalocytes 1+
--- NOTE | 2017-10-06 07:32 | P.PNCC ---
Subjective Subjective Remarks/Hospital Course: Patient is an elderly male with unknown past medical history who was found on the floor of his apartment with door open. Apparently neighbors checked on him and found him unresponsive on the floor. Patient was brought to the emergency department and underwent extensive workup to rule out trauma. CT of the head showed moderate to severe atrophy, CT of the chest showed moderate right-sided and small left effusion. 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 X-ray of his right elbow showed a possible olecranon spur discontinuity. Multiple lab abnormalities white count was 12.8 with 87% neutrophils platelet count 60 INR was 2.3. UA showed evidence of UTI, patient received a dose of cefepime for severe sepsis. Also his troponin was elevated at 6.8, lactic acid was 8.3 BUN 67 creatinine 2.71. Patient received 2 L normal saline boluses. Dr. Jaimes from cardiology was contacted for an STEMI. Due to poor mentation and multiorgan failure patient was deemed not a candidate for cardiac catheterization. Cannot use aspirin or heparin due to platelet count of 60,000 INR of 2.3. Other abnormal labs included transaminitis and elevated CPK. I evaluated the patient in the emergency department. He is severely encephalopathic appears critical, tachypneic but protecting airway. He is not able to say his name or mouth any words. He continues to move his head side to side but not communicative. I have added additional 2 L normal saline bolus, give 2 A of bicarb. Check ABG. Broad-spectrum antibiotics with vancomycin 1 dose and renally dosed Zosyn. Patient is very critically ill and has multiorgan failure, overall prognosis appears very poor. 10/04: This morning patient is not on any pressors. He is awake, agitated at times requiring restraints. He is saying incomprehensible words. T-max of 99.1. Urine output is minimal. 10/05: No events over the night. T-max of 98.4. Patient's mental status remains unchanged. Lethargic but easily arousable, not following any commands, saying incomprehensible words. Urine output of 525 mL's over the last 24 hours. Patient identified as Pablo Slater, 82-year-old gentleman. Still no family contact yet. 10/06: Over the night, patient developed worsening hypoxia with periods of apnea therefore he was intubated and now he is mechanically ventilated. This morning he is on no sedation, thrashing in bed, not following any commands. T-max of 99.9. Urine output is low, 200 mL's over the last 24 hours. Low blood pressure over the night noted, 1000 mL's of LR bolus given map remains borderline low normal. Morning chest x-ray reviewed, bibasilar infiltrates, right greater than left. ET tube is in good position. ROS -unobtainable due to patient's mental status Objective Vital Signs / I&O: Vital Signs 10/05/17 08:00 10/05/17 09:00 10/05/17 10:00 Temperature 97.9 F 97.9 F 98.1 F Pulse Rate 84 81 84 Respiratory Rate 25 H 26 H 27 H Blood Pressure 114/78 114/77 115/78 Pulse Oximetry 96 100 92 L 10/05/17 11:00 10/05/17 12:00 10/05/17 13:00 Temperature 98.2 F 98.2 F 98.2 F Pulse Rate 90 80 83 Respiratory Rate 27 H 25 H 25 H Blood Pressure 117/73 106/84 111/81 Pulse Oximetry 95 95 95 10/05/17 14:00 10/05/17 15:00 10/05/17 16:00 Temperature 98.6 F 98.8 F 99.0 F Pulse Rate 79 87 94 H Respiratory Rate 32 H 32 H 21 Blood Pressure 110/76 115/79 123/82 Pulse Oximetry 95 92 L 98 10/05/17 17:00 10/05/17 18:00 10/05/17 20:00 Temperature 99.1 F 98.6 F Pulse Rate 87 77 90 Respiratory Rate 27 H 32 H Blood Pressure 109/78 104/69 Pulse Oximetry 90 L 98 94 L 10/05/17 21:52 10/05/17 22:00 10/06/17 02:17 Temperature 99.9 F H 99.9 F H Pulse Rate 92 H 91 H Respiratory Rate 43 H 51 H 20 Blood Pressure 114/73 Pulse Oximetry 96 97 93 L 10/06/17 04:47 Temperature Pulse Rate Respiratory Rate 22 Blood Pressure Pulse Oximetry 95 Intake & Output 10/05/17 10/06/17 10/06/17 18:59 06:59 18:59 Intake Total 2137 384 / 384 Output Total 200 / 200 Balance 1937 384 / 384 Intake: IV 2137 384 / 384 D5W Inj 1,000 ML @ 84 mls/hr IV 616 / 616 384 / 384 .CONT .[id number] JIGNA Rx#:[id number] LR 1000 mL Inj 1,000 ML @ 100 1422 / 1422 mls/hr IV.CONT .Q10H JIGNA Rx#: [id number] Zosyn 3.375 GM Premix 50 ML @ 100 / 100 0 / 0 100 mls/hr IV.SIG Q8H JIGNA Rx#: [id number] Oral 0 / 0 Output: Urine Amount (Catheter) 200 / 200 Indwelling Urethral Catheter 200 / 200 Other: # Bowel Movements 0 Result Diagrams: 10/06/17 04:49 10/06/17 04:49 Other Results: Blood cultures from 822 have no growth to date. Urine culture has no growth to date also. Imaging: Elbow X-Ray 10/03/17 18:31 CONCLUSION: There is discontinuity of the tip of a small olecranon spur without soft tissue swelling. Cannot exclude a fracture. Recommend correlation with clinical exam for point tenderness in this area. Hip X-Ray 10/03/17 18:31 CONCLUSION: No fracture seen. Lumbar Spine X-Ray 10/03/17 18:31 CONCLUSION: 60% anterior compression fracture of L2. No retropulsed fragments seen. Cervical Spine CT 10/03/17 18:35 CONCLUSION: 1. No evidence of compression deformity, fracture, or spondylolisthesis. 2. Advanced hypertrophic degenerative changes in the facet joints, more severe on the right. Head CT 10/03/17 18:35 CONCLUSION: 1. Moderate moderate severity central cortical atrophy. No acute findings in the brain. . Abdomen/Pelvis CT 10/03/17 18:38 CONCLUSION: 1. Bilateral pleural effusions, right greater than left. 2. Nonobstructing 4 mm stone in the right renal collecting system. 3. 3.7 cm infrarenal abdominal aortic aneurysm. 4. Small fat-containing left inguinal hernia. Chest CT 10/03/17 18:38 CONCLUSION: 1. Large right and small left pleural effusion. 2. No fracture seen. No evidence of pneumothorax. Liver Ultrasound 10/04/17 00:00 CONCLUSION: 1. No evidence of gallstones or biliary tract obstruction. 2. There is a cyst along the upper pole the right kidney measuring 3 cm. 3. Bilateral pleural effusions. Chest X-Ray 10/05/17 23:20 CONCLUSION: 1. Interval placement of an endotracheal tube with the tip appropriately positioned above the jose angel at the level of the aortic arch 2. Persistent bibasilar areas of consolidation with probable bilateral pleural effusions, right greater than left. Objective Remarks: GENERAL: Elderly gentleman, poorly nourished, very deconditioned, ill-appearing , intubated HEENT: Pupils are equal and reactive. Sclerae anicteric. Neck supple without rigidity. Orally intubated. Neck veins are nondistended. No carotid bruit. CHEST: Scattered coarse breath sounds bilateral, decreased breath sounds at bases but overall improved air entry. No wheezes. CARDIOVASCULAR: Regular heart sounds, without murmurs. ABDOMEN: Soft, nontender, nondistended. Bowel sounds are decreased. No hepatomegaly or splenomegaly appreciated. MUSCULOSKELETAL: Remains tepid. 2+ peripheral pitting edema. Pulses are present. Dusky discoloration of the plantar surface of the toes. NEUROLOGICAL: Patient is intubated, lethargic, arousable but he does not follow any commands. Grimaces to pain. Pupils remain equal and reactive. Assessment and Plan - Problem List (1) Toxic metabolic encephalopathy Code(s): G92 - Toxic encephalopathy Status: Acute (2) Septic shock Code(s): A41.9 - Sepsis, unspecified organism; R65.21 - Severe sepsis with septic shock Status: Acute (3) UTI (urinary tract infection) Code(s): N39.0 - Urinary tract infection, site not specified Status: Acute (4) Transaminitis Code(s): R74.0 - Nonspecific elevation of levels of transaminase and lactic acid dehydrogenase [LDH] Status: Acute (5) NSTEMI (non-ST elevated myocardial infarction) Code(s): I21.4 - Non-ST elevation (NSTEMI) myocardial infarction Status: Acute (6) Thrombocytopenia Code(s): D69.6 - Thrombocytopenia, unspecified Status: Acute (7) DIC (disseminated intravascular coagulation) Code(s): D65 - Disseminated intravascular coagulation [defibrination syndrome] Status: Acute (8) Renal failure Code(s): N19 - Unspecified kidney failure Status: Acute - Assessment and Plan Plan: 1. Acute hypoxic respiratory failure -now intubated and mechanically ventilated 2. Acute encephalopathy, likely toxic metabolic -probably some degree of dementia at base, no improvement so far 3. Acute SD -followed by cardiology 4. Severe sepsis 5. Lactic/metabolic acidosis -lactic acid remains elevated despite adequate fluid resuscitation, likely in the setting of liver insufficiency 6. Bibasilar pneumonia 7. Transaminitis -liver enzymes are slowly trending down 8. JAVON -creatinine remains elevated and urine output remains low 9. Hypernatremia -slowly improving 10. Coagulopathy with thrombocytopenia -worsening 11. L2 compression deformity/acuity unknown 12. Moderate to large right-sided effusion 1. Continue PRVC at the current vent settings. Patient is synchronized with the vent, no auto PEEP. PIP is 21 2. Vent bundle and bronchodilators 3. Continue broad-spectrum antibiotics with Vanco and Zosyn. Cultures remain without growth to date 4. Continue D5W 5. Check CT head in the setting of periods of apnea with severe thrombocytopenia with concern for intracranial hemorrhage 6. No aspirin and heparin due to worsening thrombocytopenia and coagulopathy 7. Hold beta-justin due to borderline low blood pressure 8. No statin due to elevated liver enzymes 9. Liver ultrasound reviewed -no gallstones 10. Echocardiogram is pending 11. Serial lactic acid 12. Will need thoracentesis once his coagulopathy is improved 13. If any evidence of bleeding we will transfuse platelets, FFP and cryo 14. DVT prophylaxis with SCDs and GI prophylaxis with famotidine 15. Appreciate palliative care consult I spent 31 minutes of critical care time managing ventilator, fluids, antibiotics, reviewing data and ordering labs, discussing with nursing staff. Patient remains critically ill and at very high risk for further decompensation and . (8) Renal failure Qualifiers: Renal failure chronicity: unspecified chronicity Qualified Code(s): N19 - Unspecified kidney failure
[2017-10-06] MEDS ORDERED: Midazolam Inj 5 MG/ML 1 ML Vial ONE (08:06)
[2017-10-06] MEDS: Famotidine PF Inj 20 MG/2 ML Vial IV.PUSH SCH ×2 (08:30→20:09)
[2017-10-06] MEDS: Senna/Docusate Sodium 8.6/50 MG Tablet PO SCH ×2 (08:30→20:09)
--- NOTE | 2017-10-06 08:45 | P.PCN ---
Date of procedure: 10/06/17 Procedure: Central Line Procedure Note Diagnosis: Acute hypoxic respiratory failure, hypotension, lactic acidosis, JAVON , DIC Indications: Hypotension Consent: Not obtained since the procedure was emergent and there is no family or healthcare proxy to consent Anesthesia: Midazolam 2 mg Description of the Procedure: The patient was placed in the supine, mild- Trendelenburg position. The right internal jugular vein area was prepped and draped sterilely. A 19g needle was inserted under negative pressure aspiration and dark venous blood was obtained. A guidewire was inserted easily without resistance. A small incision was made using a #11 blade. Using a modified Seldinger technique, the dilator and the central venous catheter were advanced over the guidewire without resistance. All ports were aspirated and flushed, and had brisk blood return. The line was secured at 15 cm at the skin using 2-0 silk interrupted sutures. A Biopatch and Transparent sterile dressing were applied. There were no immediate complications noted. There was minimal EBL. The patient tolerated the procedure well. Ultrasound Guidance: Ultrasound guidance was used to identify the right internal jugular vein. The vascular anatomy was normal. The vessel was cannulated under direct, real-time ultrasound visualization. After placement of the guidewire, confirmation of the guidewire in the lumen of the vessel was made using ultrasound visualization, before dilation of the tract. A Chest x-ray has been ordered. I personally performed the procedure.
--- NOTE | 2017-10-06 09:25 | XR ---
EXAM DATE: 10/06/2017 9:15 AM EDT AGE/SEX: 82 years / Male INDICATIONS: Central line placement. CLINICAL DATA: This is the patient's subsequent encounter. Patient reports that signs and symptoms h ave been present for 4 - 6 days and indicates a pain score of Nonresponsive. MEDICAL/SURGICAL HISTORY: Non-responsive. Non-responsive. COMPARISON: [facility] [place] [facility] [place] 1[place] SINGLE AP[place]/05/2017. . FINDINGS: A single AP view of the chest demonstrates cardiomegaly and bibasilar airspace disease. Endotracheal tube, unchanged. Nasogastric tube with tip likely in stomach. Right jugular central line with tip in the SVC. No pneumothorax. The cardiomediastinal contours are unremarkable. Osseous structures are in tact. CONCLUSION: Cardiomegaly with bibasilar airspace disease. Adequate placement of right jugular central line. Electronically signed by: Michael Medrano MD 10/06/2017 9:23 AM EDT
[2017-10-06] MEDS ORDERED: Vancomycin Inj 1,250 MG in Sodium Chlor 0.9% Inj 250 ML IV.SIG ONE (13:00)
--- NOTE | 2017-10-06 17:28 | CT ---
EXAM DATE: 10/06/2017 5:19 PM EDT AGE/SEX: 82 years / Male INDICATIONS: Acute encephalopathy, altered mental status. CLINICAL DATA: This is the patient's initial encounter. Patient reports that signs and symptoms have been present for 1 day and indicates a pain score of Nonresponsive. MEDICAL/SURGICAL HISTORY: Aneurysm, abdominal. Hypertension. None. RADIATION DOSE: 36.52 CTDI (mGy) COMPARISON: [facility] – [place], CT HEAD W/O CONTRAST, 10/03/2017. . TECHNIQUE: CT of the head without contrast. Using automated exposure control and adjustment of the mA and/or kV according to patient size, radiation dose was kept as low as reasonably achievable to ob tain optimal diagnostic quality images. DICOM format image data is available electronically for revi ew and comparison. FINDINGS: Cerebrum: The CSF spaces are stable.. No evidence of midline shift, mass lesion, hemorrhage or acut e infarction. No extraaxial fluid collections are seen. Posterior Fossa: The cerebellum and brainstem are intact. The 4th ventricle is midline. The cerebe llopontine angle is unremarkable. Extracranial: The visualized portion of the orbits is intact. Skull: The calvaria is intact. No evidence of skull fracture. CONCLUSION: 1. Stable evaluation the brain. 2. No evidence of acute infarct, hemorrhage, mass or edema. . Electronically signed by: Miles John MD 10/06/2017 5:27 PM EDT
[2017-10-07] MEDS: Dextrose 5% in Water Inj 1,000 ML IV.CONT SCH ×2 (01:37→15:03)
[2017-10-07 04:06] LABS: Hematocrit 46.6 % (39.0-51.0); Hemoglobin 15.1 gm/dL (13.0-17.0); Mean Corpuscular HGB Conc 32.4 % (32.0-36.0); Mean Corpuscular Hemoglobin 31.1 pg (27.0-34.0); Mean Platelet Volume 10.9 fL (7.0-11.0); Red Blood Count 4.85 mil/mm3 (4.50-5.90); White Blood Count 10.4 th/mm3 (4.0-11.0)
[2017-10-07 04:15] LABS: Platelet Count 15 th/mm3 (150-450)
[2017-10-07 04:19] LABS: Albumin 2.1 g/dL (3.4-5.0); Calcium 6.3 mg/dL (8.5-10.1); Magnesium 2.5 mg/dL (1.5-2.5); Potassium 3.7 meq/L (3.5-5.1)
[2017-10-07] MEDS ORDERED: Calcium Chloride Inj 1 GM in Sodium Chlor 0.9% Inj 100 ML IV.SIG ONE (04:48)
[2017-10-07] MEDS: Chlorhexidine Gluconate 2% 1 Pack (2 Cloths) TOPICAL SCH (05:18)
[2017-10-07] MEDS: fentaNYL 10 mcg/mL Premix Drip 2,500 MCG/250 ML BAG IV.SIG PRN (05:24)
[2017-10-07 05:58] LABS: Activated Partial Thrombo Time 39.7 sec (24.3-30.1); INR 2.3 Ratio; Prothrombin Time 22.9 sec (9.8-11.6)
[2017-10-07] MEDS: Piperacil/Tazo 3.375 GM Premix 50 ML IV.SIG SCH (08:45)
[2017-10-07] MEDS: Senna/Docusate Sodium 8.6/50 MG Tablet PO SCH ×2 (08:46→21:52)
[2017-10-07] MEDS: Famotidine PF Inj 20 MG/2 ML Vial IV.PUSH SCH (08:46)
--- NOTE | 2017-10-07 13:37 | P.PNCC ---
Subjective Subjective Remarks/Hospital Course: Patient is an elderly male with unknown past medical history who was found on the floor of his apartment with door open. Apparently neighbors checked on him and found him unresponsive on the floor. Patient was brought to the emergency department and underwent extensive workup to rule out trauma. CT of the head showed moderate to severe atrophy, CT of the chest showed moderate right-sided and small left effusion. 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 X-ray of his right elbow showed a possible olecranon spur discontinuity. Multiple lab abnormalities white count was 12.8 with 87% neutrophils platelet count 60 INR was 2.3. UA showed evidence of UTI, patient received a dose of cefepime for severe sepsis. Also his troponin was elevated at 6.8, lactic acid was 8.3 BUN 67 creatinine 2.71. Patient received 2 L normal saline boluses. Dr. Jaimes from cardiology was contacted for an STEMI. Due to poor mentation and multiorgan failure patient was deemed not a candidate for cardiac catheterization. Cannot use aspirin or heparin due to platelet count of 60,000 INR of 2.3. Other abnormal labs included transaminitis and elevated CPK. I evaluated the patient in the emergency department. He is severely encephalopathic appears critical, tachypneic but protecting airway. He is not able to say his name or mouth any words. He continues to move his head side to side but not communicative. I have added additional 2 L normal saline bolus, give 2 A of bicarb. Check ABG. Broad-spectrum antibiotics with vancomycin 1 dose and renally dosed Zosyn. Patient is very critically ill and has multiorgan failure, overall prognosis appears very poor. 10/04: This morning patient is not on any pressors. He is awake, agitated at times requiring restraints. He is saying incomprehensible words. T-max of 99.1. Urine output is minimal. 10/05: No events over the night. T-max of 98.4. Patient's mental status remains unchanged. Lethargic but easily arousable, not following any commands, saying incomprehensible words. Urine output of 525 mL's over the last 24 hours. Patient identified as Pablo Slater, 82-year-old gentleman. Still no family contact yet. 10/06: Over the night, patient developed worsening hypoxia with periods of apnea therefore he was intubated and now he is mechanically ventilated. This morning he is on no sedation, thrashing in bed, not following any commands. T-max of 99.9. Urine output is low, 200 mL's over the last 24 hours. Low blood pressure over the night noted, 1000 mL's of LR bolus given map remains borderline low normal. Morning chest x-ray reviewed, bibasilar infiltrates, right greater than left. ET tube is in good position. ROS -unobtainable due to patient's mental status SUBJECTIVE: 10/07: Low-grade temperatures overnight. Remains on norepinephrine drip at 2 mcg /min. Arousable on fentanyl drip at 100 mg an hour. No bowel movement. Objective Vital Signs / I&O: Vital Signs 10/06/17 13:40 10/06/17 13:45 10/06/17 13:50 Temperature 100.2 F H 100.2 F H 100.2 F H Pulse Rate 81 81 82 Respiratory Rate 16 17 18 Blood Pressure 106/77 108/76 107/76 Pulse Oximetry 98 98 98 10/06/17 13:55 10/06/17 13:56 10/06/17 14:00 Temperature 100.2 F H 100.2 F H Pulse Rate 82 81 Respiratory Rate 17 17 19 Blood Pressure 108/77 108/74 Pulse Oximetry 98 97 97 10/06/17 14:05 10/06/17 14:10 10/06/17 14:15 Temperature 100.2 F H 100.2 F H 100.2 F H Pulse Rate 81 80 80 Respiratory Rate 19 17 18 Blood Pressure 107/75 106/75 108/74 Pulse Oximetry 98 98 98 10/06/17 14:20 10/06/17 14:25 10/06/17 14:30 Temperature 100.2 F H 100.2 F H 100.2 F H Pulse Rate 80 79 79 Respiratory Rate 17 18 18 Blood Pressure 108/75 102/71 104/72 Pulse Oximetry 98 98 98 10/06/17 14:35 10/06/17 14:40 10/06/17 14:45 Temperature 100.2 F H 100.2 F H 100.2 F H Pulse Rate 80 80 80 Respiratory Rate 17 17 17 Blood Pressure 106/73 104/73 106/74 Pulse Oximetry 97 97 97 10/06/17 14:50 10/06/17 14:55 10/06/17 15:00 Temperature 100.2 F H 100.2 F H 100.2 F H Pulse Rate 80 80 80 Respiratory Rate 17 18 16 Blood Pressure 105/74 106/73 108/71 Pulse Oximetry 97 98 98 10/06/17 15:05 10/06/17 15:10 10/06/17 15:15 Temperature 100.2 F H 100.2 F H 100.2 F H Pulse Rate 80 81 81 Respiratory Rate 17 19 17 Blood Pressure 104/74 107/77 107/75 Pulse Oximetry 98 97 97 10/06/17 15:20 10/06/17 15:25 10/06/17 15:30 Temperature 100.2 F H 100.2 F H 100.2 F H Pulse Rate 82 81 81 Respiratory Rate 17 17 14 Blood Pressure 107/75 109/75 102/73 Pulse Oximetry 97 97 96 10/06/17 15:35 10/06/17 15:40 10/06/17 15:45 Temperature 100.2 F H 100.2 F H 100.2 F H Pulse Rate 80 80 80 Respiratory Rate 15 15 15 Blood Pressure 103/70 101/75 101/71 Pulse Oximetry 97 97 96 10/06/17 15:50 10/06/17 15:55 10/06/17 16:00 Temperature 100.2 F H 100.2 F H 100.2 F H Pulse Rate 80 80 80 Respiratory Rate 15 15 15 Blood Pressure 102/71 102/72 102/71 Pulse Oximetry 97 97 97 10/06/17 16:05 10/06/17 16:10 10/06/17 16:15 Temperature 100.2 F H 100.2 F H 100.2 F H Pulse Rate 81 81 81 Respiratory Rate 15 15 15 Blood Pressure 103/72 103/73 103/73 Pulse Oximetry 97 97 97 10/06/17 16:20 10/06/17 16:21 10/06/17 16:25 Temperature 100.4 F H 100.4 F H Pulse Rate 81 80 Respiratory Rate 15 15 15 Blood Pressure 103/71 104/72 Pulse Oximetry 97 97 97 10/06/17 16:30 10/06/17 16:35 10/06/17 16:40 Temperature 100.4 F H 100.4 F H 100.4 F H Pulse Rate 80 80 80 Respiratory Rate 17 17 17 Blood Pressure 108/74 103/73 103/73 Pulse Oximetry 97 97 97 10/06/17 16:45 10/06/17 16:50 10/06/17 16:55 Temperature 100.4 F H 100.4 F H 100.4 F H Pulse Rate 81 80 81 Respiratory Rate 17 17 17 Blood Pressure 104/71 104/73 105/75 Pulse Oximetry 97 97 97 10/06/17 17:00 10/06/17 17:10 10/06/17 17:15 Temperature 100.4 F H 100.2 F H 100.2 F H Pulse Rate 81 80 84 Respiratory Rate 17 21 14 Blood Pressure 97/68 L 101/77 108/65 Pulse Oximetry 97 96 10/06/17 17:20 10/06/17 17:22 10/06/17 17:30 Temperature 100.2 F H 100.2 F H 100.2 F H Pulse Rate 84 84 85 Respiratory Rate 27 H 15 Blood Pressure 102/70 103/73 109/77 Pulse Oximetry 100 99 98 10/06/17 18:00 10/06/17 19:00 10/06/17 19:30 Temperature 100.2 F H 100.0 F H 100.0 F H Pulse Rate 82 79 79 Respiratory Rate 15 18 17 Blood Pressure 108/74 113/78 115/77 Pulse Oximetry 98 98 98 10/06/17 20:00 10/06/17 20:30 10/06/17 20:48 Temperature 99.9 F H 99.9 F H Pulse Rate 82 80 Respiratory Rate 17 15 15 Blood Pressure 118/84 110/76 Pulse Oximetry 97 98 99 10/06/17 21:00 10/06/17 21:30 10/06/17 22:00 Temperature 99.5 F 99.5 F 99.5 F Pulse Rate 79 80 80 Respiratory Rate 15 15 17 Blood Pressure 109/80 108/78 113/80 Pulse Oximetry 99 98 99 10/06/17 22:30 10/06/17 23:00 10/06/17 23:15 Temperature 99.3 F 99.3 F 99.3 F Pulse Rate 79 77 76 Respiratory Rate 17 20 20 Blood Pressure 114/78 102/72 107/76 Pulse Oximetry 99 100 100 10/06/17 23:30 10/06/17 23:45 10/07/17 00:00 Temperature 99.3 F 99.3 F 99.3 F Pulse Rate 77 76 77 Respiratory Rate 18 18 18 Blood Pressure 105/76 104/72 104/73 Pulse Oximetry 99 99 99 10/07/17 00:15 10/07/17 00:30 10/07/17 00:45 Temperature 99.3 F 99.3 F 99.3 F Pulse Rate 78 78 77 Respiratory Rate 17 18 15 Blood Pressure 106/73 108/76 105/75 Pulse Oximetry 99 99 99 10/07/17 01:00 10/07/17 01:15 10/07/17 01:30 Temperature 99.3 F 99.3 F 99.5 F Pulse Rate 77 77 77 Respiratory Rate 15 15 15 Blood Pressure 105/74 103/74 102/73 Pulse Oximetry 99 99 98 10/07/17 01:45 10/07/17 02:00 10/07/17 02:15 Temperature 99.5 F 99.5 F 99.5 F Pulse Rate 77 78 78 Respiratory Rate 17 15 15 Blood Pressure 104/71 104/73 104/73 Pulse Oximetry 98 98 99 10/07/17 02:30 10/07/17 02:45 10/07/17 03:00 Temperature 99.7 F H 99.7 F H 99.7 F H Pulse Rate 76 78 77 Respiratory Rate 17 17 16 Blood Pressure 105/72 106/73 105/73 Pulse Oximetry 99 99 99 10/07/17 03:15 10/07/17 03:30 10/07/17 03:45 Temperature 99.7 F H 99.7 F H 99.7 F H Pulse Rate 75 75 74 Respiratory Rate 18 16 17 Blood Pressure 104/70 101/69 99/68 L Pulse Oximetry 99 99 99 10/07/17 04:00 10/07/17 04:15 10/07/17 04:30 Temperature 99.7 F H 99.7 F H 99.5 F Pulse Rate 75 75 79 Respiratory Rate 16 15 15 Blood Pressure 99/67 L 98/66 L 96/68 L Pulse Oximetry 99 99 97 10/07/17 04:45 10/07/17 05:00 10/07/17 05:15 Temperature 99.3 F 99.3 F 99.3 F Pulse Rate 79 78 76 Respiratory Rate 15 15 15 Blood Pressure 96/70 L 99/71 L 100/70 Pulse Oximetry 98 98 98 10/07/17 05:30 10/07/17 05:45 10/07/17 06:00 Temperature 99.3 F 99.3 F 99.1 F Pulse Rate 75 73 74 Respiratory Rate 15 15 16 Blood Pressure 111/74 116/76 118/80 Pulse Oximetry 98 98 98 10/07/17 06:15 10/07/17 06:30 10/07/17 06:45 Temperature 99.1 F 99.1 F 99.1 F Pulse Rate 72 68 68 Respiratory Rate 16 16 17 Blood Pressure 119/79 108/71 106/71 Pulse Oximetry 99 99 99 10/07/17 07:00 10/07/17 07:15 10/07/17 07:30 Temperature 99.1 F 99.1 F 99.1 F Pulse Rate 71 71 69 Respiratory Rate 16 17 16 Blood Pressure 101/71 100/71 100/69 Pulse Oximetry 99 99 98 10/07/17 07:45 10/07/17 08:00 10/07/17 08:15 Temperature 99.1 F 99.1 F 99.1 F Pulse Rate 69 69 68 Respiratory Rate 16 16 16 Blood Pressure 99/69 L 99/68 L 98/69 L Pulse Oximetry 99 99 99 10/07/17 08:30 10/07/17 08:45 10/07/17 09:00 Temperature 99.1 F 99.1 F 99.1 F Pulse Rate 68 68 67 Respiratory Rate 16 15 17 Blood Pressure 98/68 L 93/66 L 99/69 L Pulse Oximetry 99 98 99 10/07/17 09:05 10/07/17 09:15 10/07/17 09:30 Temperature 99.0 F 99.0 F Pulse Rate 67 68 Respiratory Rate 15 16 17 Blood Pressure 99/69 L 100/69 Pulse Oximetry 97 98 98 10/07/17 09:45 10/07/17 10:00 10/07/17 10:15 Temperature 99.0 F 99.0 F 99.0 F Pulse Rate 68 69 67 Respiratory Rate 15 16 16 Blood Pressure 98/69 L 98/68 L 96/67 L Pulse Oximetry 98 98 98 10/07/17 10:30 10/07/17 10:45 10/07/17 11:00 Temperature 99.0 F 99.0 F 99.0 F Pulse Rate 69 69 69 Respiratory Rate 16 16 15 Blood Pressure 98/67 L 97/67 L 99/70 L Pulse Oximetry 98 98 98 10/07/17 11:15 10/07/17 11:30 10/07/17 11:45 Temperature 99.0 F 99.0 F 99.0 F Pulse Rate 70 69 69 Respiratory Rate 16 16 16 Blood Pressure 99/69 L 101/68 99/68 L Pulse Oximetry 98 98 98 10/07/17 12:00 10/07/17 12:15 Temperature 99.0 F 99.0 F Pulse Rate 70 69 Respiratory Rate 15 16 Blood Pressure 98/68 L 97/66 L Pulse Oximetry 98 98 Intake & Output 10/06/17 10/07/17 10/07/17 18:59 06:59 18:59 Intake Total 5962.5 / 5962.5 1958.8 / 1958.8 160 / 160 Output Total 650 / 650 600 / 600 Balance 5312.5 / 5312.5 1358.8 / 1358.8 160 / 160 Weight 73 kg Intake: IV 5962.5 / 5962.5 1838.8 / 1838.8 160 / 160 D5W Inj 1,000 ML @ 84 mls/hr IV 1000 / 1000 1246 / 1246 .CONT .[id number] [facility] Rx#:[id number] Calcium Chloride Inj 1 GM In NS 110 / 110 Inj 100 ML @ 110 mls/hr IV.SIG ONCE ONE Rx#:[id number] Levophed-Dextrose 4 mg/250 ml 292.8 / 292.8 Drip 4 mg In 250 ml @ 2 MCG/MIN 7.5 mls/hr IV.SIG TITRATE PRN Rx#:[id number] Zosyn 3.375 GM Premix 50 ML @ 100 / 100 50 / 50 50 / 50 100 mls/hr IV.SIG Q8H [facility] Rx#: [id number] Vancomycin Inj 1,250 MG In NS 262.5 / 262.5 Inj 250 ML @ 250 mls/hr IV.SIG ONCE ONE Rx#:[id number] fentaNYL 10 mcg/mL Premix Drip 250 / 250 2,500 mcg In 250 ml @ 50 MCG/HR 5 mls/hr IV.SIG TITRATE PRN Rx #:[id number] Water Bolus Amount 120 / 120 Output: Urine Amount (Catheter) 650 / 650 600 / 600 Indwelling Urethral Catheter 650 / 650 600 / 600 Other: # Bowel Movements 0 Result Diagrams: 10/07/17 03:14 10/07/17 03:14 Other Results: Microbiology 10/03/17 18:40 Blood - Line Aerobic Blood Culture - Preliminary No growth in 4 days 10/03/17 18:40 Blood - Line Anaerobic Blood Culture - Preliminary No growth in 4 days 10/03/17 18:45 Blood - Line Aerobic Blood Culture - Preliminary No growth in 4 days 10/03/17 18:45 Blood - Line Anaerobic Blood Culture - Preliminary No growth in 4 days 10/03/17 19:00 Catheterized Urine Urine Culture - Final No growth in 48 hours Imaging: Microbiology 10/03/17 18:40 Blood - Line Aerobic Blood Culture - Preliminary No growth in 4 days 10/03/17 18:40 Blood - Line Anaerobic Blood Culture - Preliminary No growth in 4 days 10/03/17 18:45 Blood - Line Aerobic Blood Culture - Preliminary No growth in 4 days 10/03/17 18:45 Blood - Line Anaerobic Blood Culture - Preliminary No growth in 4 days 10/03/17 19:00 Catheterized Urine Urine Culture - Final No growth in 48 hours Objective Remarks: GENERAL: Elderly gentleman, poorly nourished, very deconditioned, ill-appearing , intubated HEENT: Pupils are equal and reactive. Sclerae anicteric. Neck supple without rigidity. Orally intubated. Neck veins are nondistended. No carotid bruit. CHEST: Scattered coarse breath sounds bilateral, decreased breath sounds at bases but overall improved air entry. No wheezes. CARDIOVASCULAR: Regular heart sounds, without murmurs. ABDOMEN: Soft, nontender, nondistended. Bowel sounds are decreased. No hepatomegaly or splenomegaly appreciated. MUSCULOSKELETAL: Remains tepid. 2+ peripheral pitting edema. Pulses are present. Dusky discoloration of the plantar surface of the toes. NEUROLOGICAL: Patient is intubated, lethargic, arousable by opening eyes and withdrawing to bilateral upper and lower extremities but he does not follow any commands. Grimaces to pain. Pupils remain equal and reactive. Assessment and Plan - Assessment and Plan Plan: 1. Acute hypoxic respiratory failure -now intubated and mechanically ventilated 2. Acute encephalopathy, likely toxic metabolic -probably some degree of dementia at base, no improvement so far 3. Acute CT -followed by cardiology 4. Severe sepsis 5. Lactic/metabolic acidosis -lactic acid remains elevated despite adequate fluid resuscitation, likely in the setting of liver insufficiency 6. Bibasilar pneumonia 7. Transaminitis -liver enzymes are slowly trending down 8. JAVON -creatinine remains elevated and urine output remains low 9. Hypernatremia -slowly improving 10. Coagulopathy with thrombocytopenia -worsening 11. L2 compression deformity/acuity unknown 12. Moderate to large right-sided effusion with small left pleural effusion 1. Continue PRVC at the current vent settings. Patient is synchronized with the vent, no auto PEEP. PIP is 21 2. Vent bundle and bronchodilators with albuterol/ipratropium aerosols every 6 hours with albuterol aerosols every 2 hours as needed for dyspnea 3. Continue broad-spectrum antibiotics with Vanco and piperacillin/tazobactam. Cultures remain without growth to date 4. Continue D5W at 84 cc an hour with free water 100 cc every [address] head 10/06 for acute hemorrhage in the setting of periods of apnea with severe thrombocytopenia with concern for intracranial hemorrhage 6. No aspirin and heparin due to worsening thrombocytopenia and coagulopathy 7. Hold beta-justin due to borderline low blood pressure. Continue norepinephrine drip at 2 mcg/min 8. No statin due to elevated liver enzymes 9. Liver ultrasound reviewed -no gallstones 10. Echocardiogram is pending 11. Serial lactic acid 12. Will need thoracentesis once his coagulopathy is improved for large right- sided pleural effusion. 13. Transfuse 1 packed leuko-reduced platelets, and 1 cryo emergently due to worsening thrombocytopenia 14. DVT prophylaxis with SCDs and GI prophylaxis with lansoprazole 15. Appreciate palliative care consult 16. Start tube feeding goal 50 cc an hour with Marlee I spent 30 minutes of critical care time managing ventilator, fluids, antibiotics, reviewing data and ordering labs, discussing with nursing staff. \
[2017-10-07] MEDS ORDERED: Dextrose 50% in Water 50 ML Vial IV.PUSH PRN ×2 (13:40→13:41)
--- NOTE | 2017-10-07 14:39 | P.DIET ---
Nutritional Evaluation Type of nutrition evaluation: initial Nutrition consult regarding: Tube Feeding Objective - Diagnosis AMS, JAVON, Dehydration - Objective [place] body weight: 73 kg (Admit wt: 67.6kg) % IBW: 93 Energy Needs - Lower Range (kCal/kg): 28 Energy Needs - Upper Range (kCal/kg): 33 Lower Limit kCal/kg (kCals): 1,893 Upper Limit kCal/kg (kCals): 2,231 Lower Limit Protein Factor (Grams per Kg): 1 Upper Limit Protein Factor (Grams per Kg): 1.3 Lower Protein Needs (Protein): 68 Upper Protein Needs (Protein): 88 Dietitian Reviewed in Medical Record: Curent medications, Intake & Output, Labs , Medical history, Tube feeding Diet Order: TF only Objective Comments: Pt's nutritional needs based on admit wt PMH: AAA, HTN Meds include: Fentanyl Labs include: Na 147, Cr 1.71, Lactic Acid 5.9, Ca 6.3, Cor Ca 7.9, elevated LFT 's, Total Bili 7.3 (-)BM Assessment Assessment: Pt at nutritional risk r/t dx and need for a TF for nutritional support. Pt intubated and now sedated on fentanyl. Nutritional needs as assessed above. Noted pt's UOP is low and Cr remains elevated. TF Nepro started per MD. Recommend a goal rate of 55 mls/hr to best meet pt's nutritional needs. This will provide 1944kcals, 88gms protein and 785mls free water. Will monitor TF tolerance, clinical course. Recommendations: TF Nepro with goal rate 45 ml/hr Dietitian to Monitor: Lab values, Renal labs, Intake & Output, Tube feeding tolerance, Weight change, Medical course
[2017-10-07] MEDS: Piperacil/Tazo 2.25 GM Premix 50 ML IV.SIG SCH ×2 (15:20→21:52)
[2017-10-07] MEDS: Insulin NovoLOG Aspart Correctional Sugar Inj SQ SCH (18:33)
[2017-10-07] MEDS: Hypromellose 0.3% Opth Gel 10 GM Bottle EACH EYE SCH (22:07)
[2017-10-08] MEDS: Insulin NovoLOG Aspart Correctional Sugar Inj SQ SCH ×4 (00:28→17:57)
[2017-10-08] MEDS: Piperacil/Tazo 2.25 GM Premix 50 ML IV.SIG SCH ×4 (03:15→20:37)
[2017-10-08] MEDS: Dextrose 5% in Water Inj 1,000 ML IV.CONT SCH ×2 (03:35→18:01)
[2017-10-08] MEDS: Chlorhexidine Gluconate 2% 1 Pack (2 Cloths) TOPICAL SCH (03:36)
[2017-10-08 03:58] LABS: Baso % (Auto) 0.2 % (0.0-2.0); Eos # (Auto) 0.1 th/mm3 (0.0-0.4); Eos % (Auto) 0.6 % (0.0-4.0); Hematocrit 40.5 % (39.0-51.0); Hemoglobin 13.2 gm/dL (13.0-17.0); Lymph % (Auto) 10.5 % (9.0-44.0); Mean Corpuscular HGB Conc 32.5 % (32.0-36.0); Mean Corpuscular Volume 95.5 fL (80.0-100.0); Mean Platelet Volume 8.9 fL (7.0-11.0); Mono # (Auto) 0.5 th/mm3 (0.0-0.9); Mono % (Auto) 5.3 % (0.0-8.0); Neut # (Auto) 7.9 th/mm3 (1.8-7.7); Neut % (Auto) 83.4 % (16.0-70.0); Platelet Count 40 th/mm3 (150-450); Red Blood Count 4.24 mil/mm3 (4.50-5.90); Red Cell Distribution Width 16.1 % (11.6-17.2); White Blood Count 9.4 th/mm3 (4.0-11.0)
[2017-10-08 04:09] LABS: Activated Partial Thrombo Time 36.4 sec (24.3-30.1); INR 1.7 Ratio; Prothrombin Time 17.4 sec (9.8-11.6)
[2017-10-08 04:19] LABS: Albumin 1.9 g/dL (3.4-5.0); Calcium 6.9 mg/dL (8.5-10.1); Carbon Dioxide 24.6 meq/L (21.0-32.0); Magnesium 2.4 mg/dL (1.5-2.5); Phosphorus 2.9 mg/dL (2.5-4.9); Potassium 3.7 meq/L (3.5-5.1); Total Protein 4.1 g/dL (6.4-8.2); Vancomycin,Random 11.7 Comment
--- NOTE | 2017-10-08 04:48 | XR ---
EXAM DATE: 10/08/2017 4:19 AM EDT AGE/SEX: 82 years / Male INDICATIONS: Shortness of breath, possible pulmonary disease. CLINICAL DATA: This is the patient's subsequent encounter. Patient reports that signs and symptoms h ave been present for 1 week and indicates a pain score of Nonresponsive. MEDICAL/SURGICAL HISTORY: Non-responsive. Non-responsive. [place] [facility] [place]. . FINDINGS: Small pleural effusions and right greater than left basilar consolidation present, modestly worse in the interim. No pneumothorax seen. Mild cardiomegaly unchanged. Endotracheal tube tip is approximately 3 cm above the jose angel. Nasogastric tube courses in the stomach . There is a right internal jugular central venous catheter with tip in the superior vena cava. CONCLUSION: Worsening right greater than left bibasilar consolidation and small pleural effusions. Electronically signed by: Mario Damico MD 10/08/2017 4:47 AM EDT
[2017-10-08 04:56] LABS: Lymphocytes 8 % (9-44); Monocytes 3 % (0-8); Myelocytes 2 % (0-0); Promyelocyte 1 % (0-0); Tallied Nucleated RBC 1 (0-0)
[2017-10-08 04:57] LABS: Platelet Morphology Normal (Normal)
[2017-10-08 05:02] LABS: Polychromasia 2.3 % (0.0-1.9)
[2017-10-08 05:03] LABS: Ovalocytes 1+
[2017-10-08] MEDS: fentaNYL 10 mcg/mL Premix Drip 2,500 MCG/250 ML BAG IV.SIG PRN ×2 (07:46→22:23)
[2017-10-08] MEDS: Senna/Docusate Sodium 8.6/50 MG Tablet PO SCH ×2 (09:35→20:37)
[2017-10-08] MEDS: Hypromellose 0.3% Opth Gel 10 GM Bottle EACH EYE SCH ×2 (09:35→20:37)
--- NOTE | 2017-10-08 10:18 | P.PNCC ---
Subjective Subjective Remarks/Hospital Course: Patient is an elderly male with unknown past medical history who was found on the floor of his apartment with door open. Apparently neighbors checked on him and found him unresponsive on the floor. Patient was brought to the emergency department and underwent extensive workup to rule out trauma. CT of the head showed moderate to severe atrophy, CT of the chest showed moderate right-sided and small left effusion. 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 X-ray of his right elbow showed a possible olecranon spur discontinuity. Multiple lab abnormalities white count was 12.8 with 87% neutrophils platelet count 60 INR was 2.3. UA showed evidence of UTI, patient received a dose of cefepime for severe sepsis. Also his troponin was elevated at 6.8, lactic acid was 8.3 BUN 67 creatinine 2.71. Patient received 2 L normal saline boluses. Dr. Jaimes from cardiology was contacted for an STEMI. Due to poor mentation and multiorgan failure patient was deemed not a candidate for cardiac catheterization. Cannot use aspirin or heparin due to platelet count of 60,000 INR of 2.3. Other abnormal labs included transaminitis and elevated CPK. I evaluated the patient in the emergency department. He is severely encephalopathic appears critical, tachypneic but protecting airway. He is not able to say his name or mouth any words. He continues to move his head side to side but not communicative. I have added additional 2 L normal saline bolus, give 2 A of bicarb. Check ABG. Broad-spectrum antibiotics with vancomycin 1 dose and renally dosed Zosyn. Patient is very critically ill and has multiorgan failure, overall prognosis appears very poor. 10/04: This morning patient is not on any pressors. He is awake, agitated at times requiring restraints. He is saying incomprehensible words. T-max of 99.1. Urine output is minimal. 10/05: No events over the night. T-max of 98.4. Patient's mental status remains unchanged. Lethargic but easily arousable, not following any commands, saying incomprehensible words. Urine output of 525 mL's over the last 24 hours. Patient identified as Pablo Slater, 82-year-old gentleman. Still no family contact yet. 10/06: Over the night, patient developed worsening hypoxia with periods of apnea therefore he was intubated and now he is mechanically ventilated. This morning he is on no sedation, thrashing in bed, not following any commands. T-max of 99.9. Urine output is low, 200 mL's over the last 24 hours. Low blood pressure over the night noted, 1000 mL's of LR bolus given map remains borderline low normal. Morning chest x-ray reviewed, bibasilar infiltrates, right greater than left. ET tube is in good position. ROS -unobtainable due to patient's mental status SUBJECTIVE: 10/07: Low-grade temperatures overnight. Remains on norepinephrine drip at 2 mcg /min. Arousable on fentanyl drip at 100 mg an hour. No bowel movement. 10/08 Patient remains intubated and sedated with Fentanyl infusion. Afebrile. On Levophed 1 tu. Renal function is improving with Cr: 1.51 from 1.71. Objective Vital Signs / I&O: Vital Signs 10/07/17 10:00 10/07/17 10:15 10/07/17 10:30 Temperature 99.0 F 99.0 F 99.0 F Pulse Rate 69 67 69 Respiratory Rate 16 16 16 Blood Pressure 98/68 L 96/67 L 98/67 L Pulse Oximetry 98 98 98 10/07/17 10:45 10/07/17 11:00 10/07/17 11:15 Temperature 99.0 F 99.0 F 99.0 F Pulse Rate 69 69 70 Respiratory Rate 16 15 16 Blood Pressure 97/67 L 99/70 L 99/69 L Pulse Oximetry 98 98 98 10/07/17 11:30 10/07/17 11:45 10/07/17 12:00 Temperature 99.0 F 99.0 F 99.0 F Pulse Rate 69 69 70 Respiratory Rate 16 16 15 Blood Pressure 101/68 99/68 L 98/68 L Pulse Oximetry 98 98 98 10/07/17 12:15 10/07/17 12:30 10/07/17 12:45 Temperature 99.0 F 99.1 F 99.1 F Pulse Rate 69 70 69 Respiratory Rate 16 15 17 Blood Pressure 97/66 L 97/67 L 99/65 L Pulse Oximetry 98 98 98 10/07/17 13:00 10/07/17 13:15 10/07/17 13:30 Temperature 99.1 F 99.1 F 99.1 F Pulse Rate 69 70 71 Respiratory Rate 16 15 15 Blood Pressure 97/65 L 98/69 L 95/66 L Pulse Oximetry 98 98 98 10/07/17 13:45 10/07/17 13:53 10/07/17 14:00 Temperature 99.1 F 99.1 F Pulse Rate 74 74 Respiratory Rate 15 15 15 Blood Pressure 98/68 L 97/69 L Pulse Oximetry 98 98 98 10/07/17 14:15 10/07/17 14:30 10/07/17 14:45 Temperature 99.1 F 99.1 F 99.3 F Pulse Rate 73 71 69 Respiratory Rate 15 15 15 Blood Pressure 94/68 L 95/65 L 93/64 L Pulse Oximetry 98 98 98 10/07/17 15:00 10/07/17 15:15 10/07/17 15:30 Temperature 99.3 F 99.3 F 99.3 F Pulse Rate 69 69 78 Respiratory Rate 15 15 21 Blood Pressure 93/64 L 92/65 L 117/80 Pulse Oximetry 98 98 98 10/07/17 15:46 10/07/17 16:00 10/07/17 16:15 Temperature 99.3 F 99.3 F 99.3 F Pulse Rate 67 68 71 Respiratory Rate 20 19 16 Blood Pressure 101/63 98/66 L 95/65 L Pulse Oximetry 98 98 98 10/07/17 16:30 10/07/17 16:45 10/07/17 16:51 Temperature 99.3 F 99.3 F Pulse Rate 71 71 69 Respiratory Rate 16 17 15 Blood Pressure 96/66 L 96/65 L Pulse Oximetry 98 98 98 10/07/17 16:57 10/07/17 17:00 10/07/17 17:15 Temperature 99.3 F 99.3 F 99.3 F Pulse Rate 69 70 73 Respiratory Rate 17 16 16 Blood Pressure 96/65 L 97/66 L Pulse Oximetry 98 98 98 10/07/17 17:30 10/07/17 17:45 10/07/17 18:00 Temperature 99.3 F 99.3 F 99.1 F Pulse Rate 73 72 73 Respiratory Rate 16 16 15 Blood Pressure 97/68 L 98/70 L 92/66 L Pulse Oximetry 98 98 98 10/07/17 18:10 10/07/17 18:15 10/07/17 18:31 Temperature 99.1 F 99.1 F 99.1 F Pulse Rate 74 75 77 Respiratory Rate 15 15 15 Blood Pressure 92/66 L 95/68 L 104/71 Pulse Oximetry 98 97 10/07/17 18:45 10/07/17 19:00 10/07/17 19:15 Temperature 99.0 F 99.1 F 99.1 F Pulse Rate 79 76 75 Respiratory Rate 15 15 25 H Blood Pressure 105/71 99/68 L 105/70 Pulse Oximetry 97 97 96 10/07/17 19:30 10/07/17 19:45 10/07/17 20:00 Temperature 99.1 F 99.1 F 99.1 F Pulse Rate 80 81 79 Respiratory Rate 15 15 15 Blood Pressure 104/70 114/71 109/67 Pulse Oximetry 98 98 10/07/17 20:15 10/07/17 20:30 10/07/17 20:45 Temperature 99.3 F 99.3 F 99.5 F Pulse Rate 76 73 72 Respiratory Rate 15 15 15 Blood Pressure 103/68 101/67 99/68 L Pulse Oximetry 98 98 98 10/07/17 21:00 10/07/17 21:06 10/07/17 21:15 Temperature 99.5 F 99.5 F Pulse Rate 75 75 76 Respiratory Rate 24 19 21 Blood Pressure 102/68 99/69 L Pulse Oximetry 99 97 98 10/07/17 21:30 10/07/17 21:45 10/07/17 22:00 Temperature 99.5 F 99.5 F 99.5 F Pulse Rate 76 77 78 Respiratory Rate 22 21 19 Blood Pressure 99/70 L 100/72 103/71 Pulse Oximetry 98 98 98 10/07/17 22:15 10/07/17 22:30 10/07/17 22:45 Temperature 99.5 F 99.5 F 99.7 F H Pulse Rate 78 82 80 Respiratory Rate 15 16 15 Blood Pressure 103/68 96/65 L 102/70 Pulse Oximetry 98 97 97 10/07/17 23:00 10/07/17 23:15 10/07/17 23:30 Temperature 99.7 F H 99.9 F H 99.9 F H Pulse Rate 79 79 76 Respiratory Rate 15 15 15 Blood Pressure 102/69 101/70 100/69 Pulse Oximetry 97 97 98 10/07/17 23:45 10/08/17 00:00 10/08/17 00:15 Temperature 99.9 F H 99.9 F H 99.9 F H Pulse Rate 76 76 77 Respiratory Rate 15 15 15 Blood Pressure 99/68 L 100/66 101/68 Pulse Oximetry 97 97 97 10/08/17 00:30 10/08/17 00:45 10/08/17 00:59 Temperature 100.0 F H 100.0 F H Pulse Rate 80 80 Respiratory Rate 15 15 15 Blood Pressure 100/68 102/70 Pulse Oximetry 97 97 97 10/08/17 01:00 10/08/17 01:15 10/08/17 01:30 Temperature 100.0 F H 100.0 F H 100.0 F H Pulse Rate 78 76 77 Respiratory Rate 15 15 17 Blood Pressure 98/66 L 98/65 L 98/68 L Pulse Oximetry 97 97 97 10/08/17 01:45 10/08/17 02:00 10/08/17 02:15 Temperature 100.0 F H 99.9 F H 99.9 F H Pulse Rate 70 71 73 Respiratory Rate 21 22 20 Blood Pressure 93/61 L 94/63 L 94/62 L Pulse Oximetry 97 97 98 10/08/17 02:30 10/08/17 02:45 10/08/17 03:00 Temperature 100.0 F H 100.0 F H 100.0 F H Pulse Rate 74 74 69 Respiratory Rate 19 18 15 Blood Pressure 93/64 L 92/62 L 86/55 L Pulse Oximetry 97 97 97 10/08/17 03:15 10/08/17 03:30 10/08/17 03:54 Temperature 100.0 F H 100.0 F H 99.9 F H Pulse Rate 71 77 90 Respiratory Rate 17 15 16 Blood Pressure 87/57 L 95/63 L 102/67 Pulse Oximetry 97 97 90 L 10/08/17 04:00 10/08/17 04:49 10/08/17 05:00 Temperature 99.9 F H 99.9 F H 99.9 F H Pulse Rate 90 71 69 Respiratory Rate 23 15 15 Blood Pressure 102/67 83/53 L 83/52 L Pulse Oximetry 95 96 96 10/08/17 05:02 08/27/18 05:15 10/08/17 05:30 Temperature 99.7 F H 99.7 F H Pulse Rate 69 75 71 Respiratory Rate 15 15 15 Blood Pressure 87/56 L 84/55 L Pulse Oximetry 97 96 10/08/17 05:45 10/08/17 06:00 10/08/17 06:15 Temperature 99.7 F H 99.5 F 99.5 F Pulse Rate 72 69 69 Respiratory Rate 23 24 21 Blood Pressure 87/58 L 88/58 L 88/56 L Pulse Oximetry 97 97 97 10/08/17 06:30 10/08/17 08:27 10/08/17 08:32 Temperature 99.3 F Pulse Rate 71 75 Respiratory Rate 21 15 15 Blood Pressure 95/61 L Pulse Oximetry 97 96 Intake & Output 10/07/17 10/08/17 10/08/17 18:59 06:59 18:59 Intake Total 1243 / 1243 1797 / 1797 Output Total 650 / 650 450 / 450 Balance 593 / 593 1347 / 1347 Weight 74.5 kg Intake: IV 964 / 964 1350 / 1350 D5W Inj 1,000 ML @ 84 mls/hr IV 754 / 754 1000 / 1000 .CONT .[id number] [facility] Rx#:[id number] Calcium Chloride Inj 1 GM In NS 110 / 110 Inj 100 ML @ 110 mls/hr IV.SIG ONCE ONE Rx#:[id number] Zosyn 2.25 GM Premix 50 ML @ 50 / 50 100 / 100 100 mls/hr IV.SIG Q6H [facility] Rx#: [id number] Zosyn 3.375 GM Premix 50 ML @ 50 / 50 100 mls/hr IV.SIG Q8H [facility] Rx#: [id number] fentaNYL 10 mcg/mL Premix Drip 250 / 250 2,500 mcg In 250 ml @ 50 MCG/HR 5 mls/hr IV.SIG TITRATE PRN Rx #:[id number] Tube Feeding 147 / 147 Tube Irrigant 300 / 300 Intake (Blood Product) Amt 279 / 279 Plt Pheresis B Leukoreduced 279 / 279 Unit [id number] Pre-Pooled Cryo Thawed 10units 0 / 0 Unit [id number] Output: Urine Amount (Catheter) 650 / 650 450 / 450 Indwelling Urethral Catheter 650 / 650 450 / 450 Result Diagrams: 10/08/17 03:30 10/08/17 03:30 Other Results: Laboratory Results - last 12 hr 10/08/17 10/08/17 10/08/17 00:25 03:30 03:30 WBC 9.4 RBC 4.24 L Hgb 13.2 Hct 40.5 MCV 95.5 MCH 31.0 MCHC 32.5 RDW 16.1 Plt Count 40 L D MPV 8.9 Prelim Diff (Auto) Slide review pending Neut % (Auto) 83.4 H Lymph % (Auto) 10.5 [place] % (Auto) 5.3 Eos % (Auto) 0.6 Baso % (Auto) 0.2 Neut # (Auto) 7.9 H Lymph # (Auto) 1.0 [place] # (Auto) 0.5 Eos # (Auto) 0.1 Baso # (Auto) 0.0 WBC Differential Manual diff final Seg Neuts % (Manual) 83 H Band Neuts % (Manual) 3 Lymphocytes % (Manual) 8 L Monocytes % (Manual) 3 Myelocytes % (Man) 2 H Promyelocytes % (Man) 1 H Abs Neuts (Manual) 8.4 H Nucleated RBCs/100 WBC 1 H Differential Comment . Platelet Estimate Low L Platelet Morphology Normal Polychromasia 2.3 H Ovalocytes 1+ H Keratocytes Occ H PT INR APTT Fibrinogen Sodium 143 Potassium 3.7 Chloride 108 H Carbon Dioxide 24.6 Anion Gap 10 BUN 61 H Creatinine 1.51 H Estimated GFR 45 L POC Glucose 75 Random Glucose 88 Lactic Acid Calcium 6.9 L* Prot Corrected Calcium 8.6 Phosphorus 2.9 Magnesium 2.4 Total Bilirubin 12.0 H AST 527 H ALT 969 H Alkaline Phosphatase 19 L Ammonia Total Creatine Kinase 74 Total Protein 4.1 L Albumin 1.9 L Random Vancomycin 11.7 10/08/17 10/08/17 10/08/17 03:30 03:30 03:30 WBC RBC Hgb Hct MCV MCH MCHC RDW Plt Count MPV Prelim Diff (Auto) Neut % (Auto) Lymph % (Auto) [place] % (Auto) Eos % (Auto) Baso % (Auto) Neut # (Auto) Lymph # (Auto) [place] # (Auto) Eos # (Auto) Baso # (Auto) WBC Differential Seg Neuts % (Manual) Band Neuts % (Manual) Lymphocytes % (Manual) Monocytes % (Manual) Myelocytes % (Man) Promyelocytes % (Man) Abs Neuts (Manual) Nucleated RBCs/100 WBC Differential Comment Platelet Estimate Platelet Morphology Polychromasia Ovalocytes Keratocytes PT 17.4 H INR 1.7 APTT 36.4 H Fibrinogen 265 Sodium Potassium Chloride Carbon Dioxide Anion Gap BUN Creatinine Estimated GFR POC Glucose Random Glucose Lactic Acid 2.3 H Calcium Prot Corrected Calcium Phosphorus Magnesium Total Bilirubin AST ALT Alkaline Phosphatase Ammonia 17 Total Creatine Kinase Total Protein Albumin Random Vancomycin 10/08/17 06:33 WBC RBC Hgb Hct MCV MCH MCHC RDW Plt Count MPV Prelim Diff (Auto) Neut % (Auto) Lymph % (Auto) [place] % (Auto) Eos % (Auto) Baso % (Auto) Neut # (Auto) Lymph # (Auto) [place] # (Auto) Eos # (Auto) Baso # (Auto) WBC Differential Seg Neuts % (Manual) Band Neuts % (Manual) Lymphocytes % (Manual) Monocytes % (Manual) Myelocytes % (Man) Promyelocytes % (Man) Abs Neuts (Manual) Nucleated RBCs/100 WBC Differential Comment Platelet Estimate Platelet Morphology Polychromasia Ovalocytes Keratocytes PT INR APTT Fibrinogen Sodium Potassium Chloride Carbon Dioxide Anion Gap BUN Creatinine Estimated GFR POC Glucose 84 Random Glucose Lactic Acid Calcium Prot Corrected Calcium Phosphorus Magnesium Total Bilirubin AST ALT Alkaline Phosphatase Ammonia Total Creatine Kinase Total Protein Albumin Random Vancomycin Imaging: Elbow X-Ray 10/03/17 18:31 CONCLUSION: There is discontinuity of the tip of a small olecranon spur without soft tissue swelling. Cannot exclude a fracture. Recommend correlation with clinical exam for point tenderness in this area. Hip X-Ray 10/03/17 18:31 CONCLUSION: No fracture seen. Lumbar Spine X-Ray 10/03/17 18:31 CONCLUSION: 60% anterior compression fracture of L2. No retropulsed fragments seen. Cervical Spine CT 10/03/17 18:35 CONCLUSION: 1. No evidence of compression deformity, fracture, or spondylolisthesis. 2. Advanced hypertrophic degenerative changes in the facet joints, more severe on the right. Abdomen/Pelvis CT 10/03/17 18:38 CONCLUSION: 1. Bilateral pleural effusions, right greater than left. 2. Nonobstructing 4 mm stone in the right renal collecting system. 3. 3.7 cm infrarenal abdominal aortic aneurysm. 4. Small fat-containing left inguinal hernia. Chest CT 10/03/17 18:38 CONCLUSION: 1. Large right and small left pleural effusion. 2. No fracture seen. No evidence of pneumothorax. Liver Ultrasound 10/04/17 00:00 CONCLUSION: 1. No evidence of gallstones or biliary tract obstruction. 2. There is a cyst along the upper pole the right kidney measuring 3 cm. 3. Bilateral pleural effusions. Head CT 10/06/17 00:00 CONCLUSION: 1. Stable evaluation the brain. 2. No evidence of acute infarct, hemorrhage, mass or edema. . Chest X-Ray 10/08/17 06:00 CONCLUSION: Worsening right greater than left bibasilar consolidation and small pleural effusions. Objective Remarks: GENERAL: Elderly gentleman, poorly nourished, very deconditioned, ill-appearing , intubated HEENT: Pupils are equal and reactive. Sclerae anicteric. Neck supple without rigidity. Orally intubated. Neck veins are nondistended. No carotid bruit. CHEST: Scattered coarse breath sounds bilateral, decreased breath sounds at bases but overall improved air entry. No wheezes. CARDIOVASCULAR: Regular heart sounds, without murmurs. ABDOMEN: Soft, nontender, nondistended. Bowel sounds are decreased. No hepatomegaly or splenomegaly appreciated. MUSCULOSKELETAL: Remains tepid. 2+ peripheral pitting edema. Pulses are present. Dusky discoloration of the plantar surface of the toes. NEUROLOGICAL: Patient is intubated, lethargic, arousable by opening eyes and withdrawing to bilateral upper and lower extremities but he does not follow any commands. Grimaces to pain. Pupils remain equal and reactive. Assessment and Plan - Assessment and Plan Plan: 1. Acute hypoxic respiratory failure -now intubated and mechanically ventilated 2. Acute encephalopathy, likely toxic metabolic -probably some degree of dementia at base, no improvement so far 3. Acute [place] -followed by cardiology 4. Severe sepsis 5. Lactic/metabolic acidosis -lactic acid remains elevated despite adequate fluid resuscitation, likely in the setting of liver insufficiency 6. Bibasilar pneumonia 7. Transaminitis -liver enzymes are slowly trending down 8. JAVON -creatinine remains elevated and urine output remains low 9. Hypernatremia -slowly improving 10. Coagulopathy with thrombocytopenia -worsening 11. L2 compression deformity/acuity unknown 12. Moderate to large right-sided effusion with small left pleural effusion Plan Neuro: On Fentanyl and infusion for sedation. Daily sedation vacation. 10/06 CT brain: No evidence of acute infarct, hemorrhage, mass or edema. Check Ammonia level, EEG, neuro eval for encephalopathy Pulm: Continue with vent support keep sats >92% Bronchodilators, ICU vent bundle. CXR: Bibasilar consolidation. Will need thoracentesis once his coagulopathy is improved for large right-sided pleural effusion. CV: Monitor HR and BP kep MAP>65mmHg, on Levophed 1 tu Lactic acid trending down 2.3 today from 5.9 No aspirin or heparin due to worsening thrombocytopenia and coagulopathy No statin due to elevated liver enzymes For 2D echo : Monitor renal function, I/O's, electrolytes replacement as needed. Renal function is improving witg Cr: 1.51 from 1.71, d/c IVF, diurese with Lasix 40mg x1 ID: Continue abx(Vanco and piperacillin/tazobactam). BC, urine cx 10/03: No growth, check sputum cx GI: On Prevacid 30mg daily. Monitor LFT's, Liver ultrasound reviewed -no gallstones or biliary tract obstruction. Change tube feeds Glucenra 1.5 with goal rate 50ml/hr Heme: Monitor CBC, Coags, s/p Transfuse 1 packed leuko-reduced platelets, and 1 cryo due to worsening thrombocytopenia on 10/07 Endo: SSI for glycemic control DVT prophylaxis with SCDs and GI prophylaxis with lansoprazole Palliative care consulted Lines: Right IJ CVP 10/06 CCT 30 mins
--- NOTE | 2017-10-08 11:59 | P.PNCA ---
Subjective Interval history: Follow up from last week Intubated on light sedation Currently on 2 of Levophed Levophed off when Fentanyl is off, but agitated when Fentanyl is off Physical Exam Vital signs: Vital Signs 10/07/17 12:00 10/07/17 12:15 10/07/17 12:30 Temperature 99.0 F 99.0 F 99.1 F Pulse Rate 70 69 70 Respiratory Rate 15 16 15 Blood Pressure 98/68 L 97/66 L 97/67 L Pulse Oximetry 98 98 98 10/07/17 12:45 10/07/17 13:00 10/07/17 13:15 Temperature 99.1 F 99.1 F 99.1 F Pulse Rate 69 69 70 Respiratory Rate 17 16 15 Blood Pressure 99/65 L 97/65 L 98/69 L Pulse Oximetry 98 98 98 10/07/17 13:30 10/07/17 13:45 10/07/17 13:53 Temperature 99.1 F 99.1 F Pulse Rate 71 74 Respiratory Rate 15 15 15 Blood Pressure 95/66 L 98/68 L Pulse Oximetry 98 98 98 10/07/17 14:00 10/07/17 14:15 10/07/17 14:30 Temperature 99.1 F 99.1 F 99.1 F Pulse Rate 74 73 71 Respiratory Rate 15 15 15 Blood Pressure 97/69 L 94/68 L 95/65 L Pulse Oximetry 98 98 98 10/07/17 14:45 10/07/17 15:00 10/07/17 15:15 Temperature 99.3 F 99.3 F 99.3 F Pulse Rate 69 69 69 Respiratory Rate 15 15 15 Blood Pressure 93/64 L 93/64 L 92/65 L Pulse Oximetry 98 98 98 10/07/17 15:30 10/07/17 15:46 10/07/17 16:00 Temperature 99.3 F 99.3 F 99.3 F Pulse Rate 78 67 68 Respiratory Rate 21 20 19 Blood Pressure 117/80 101/63 98/66 L Pulse Oximetry 98 98 98 10/07/17 16:15 10/07/17 16:30 10/07/17 16:45 Temperature 99.3 F 99.3 F 99.3 F Pulse Rate 71 71 71 Respiratory Rate 16 16 17 Blood Pressure 95/65 L 96/66 L 96/65 L Pulse Oximetry 98 98 98 10/07/17 16:51 10/07/17 16:57 10/07/17 17:00 Temperature 99.3 F 99.3 F Pulse Rate 69 69 70 Respiratory Rate 15 17 16 Blood Pressure 96/65 L Pulse Oximetry 98 98 98 10/07/17 17:15 10/07/17 17:30 10/07/17 17:45 Temperature 99.3 F 99.3 F 99.3 F Pulse Rate 73 73 72 Respiratory Rate 16 16 16 Blood Pressure 97/66 L 97/68 L 98/70 L Pulse Oximetry 98 98 98 10/07/17 18:00 10/07/17 18:10 10/07/17 18:15 Temperature 99.1 F 99.1 F 99.1 F Pulse Rate 73 74 75 Respiratory Rate 15 15 15 Blood Pressure 92/66 L 92/66 L 95/68 L Pulse Oximetry 98 98 10/07/17 18:31 10/07/17 18:45 10/07/17 19:00 Temperature 99.1 F 99.0 F 99.1 F Pulse Rate 77 79 76 Respiratory Rate 15 15 15 Blood Pressure 104/71 105/71 99/68 L Pulse Oximetry 97 97 97 10/07/17 19:15 10/07/17 19:30 10/07/17 19:45 Temperature 99.1 F 99.1 F 99.1 F Pulse Rate 75 80 81 Respiratory Rate 25 H 15 15 Blood Pressure 105/70 104/70 114/71 Pulse Oximetry 96 98 10/07/17 20:00 10/07/17 20:15 10/07/17 20:30 Temperature 99.1 F 99.3 F 99.3 F Pulse Rate 79 76 73 Respiratory Rate 15 15 15 Blood Pressure 109/67 103/68 101/67 Pulse Oximetry 98 98 98 10/07/17 20:45 10/07/17 21:00 10/07/17 21:06 Temperature 99.5 F 99.5 F Pulse Rate 72 75 75 Respiratory Rate 15 24 19 Blood Pressure 99/68 L 102/68 Pulse Oximetry 98 99 97 10/07/17 21:15 10/07/17 21:30 10/07/17 21:45 Temperature 99.5 F 99.5 F 99.5 F Pulse Rate 76 76 77 Respiratory Rate 21 22 21 Blood Pressure 99/69 L 99/70 L 100/72 Pulse Oximetry 98 98 98 10/07/17 22:00 10/07/17 22:15 10/07/17 22:30 Temperature 99.5 F 99.5 F 99.5 F Pulse Rate 78 78 82 Respiratory Rate 19 15 16 Blood Pressure 103/71 103/68 96/65 L Pulse Oximetry 98 98 97 10/07/17 22:45 10/07/17 23:00 10/07/17 23:15 Temperature 99.7 F H 99.7 F H 99.9 F H Pulse Rate 80 79 79 Respiratory Rate 15 15 15 Blood Pressure 102/70 102/69 101/70 Pulse Oximetry 97 97 97 10/07/17 23:30 10/07/17 23:45 10/08/17 00:00 Temperature 99.9 F H 99.9 F H 99.9 F H Pulse Rate 76 76 76 Respiratory Rate 15 15 15 Blood Pressure 100/69 99/68 L 100/66 Pulse Oximetry 98 97 97 10/08/17 00:15 10/08/17 00:30 10/08/17 00:45 Temperature 99.9 F H 100.0 F H 100.0 F H Pulse Rate 77 80 80 Respiratory Rate 15 15 15 Blood Pressure 101/68 100/68 102/70 Pulse Oximetry 97 97 97 10/08/17 00:59 10/08/17 01:00 10/08/17 01:15 Temperature 100.0 F H 100.0 F H Pulse Rate 78 76 Respiratory Rate 15 15 15 Blood Pressure 98/66 L 98/65 L Pulse Oximetry 97 97 97 10/08/17 01:30 10/08/17 01:45 10/08/17 02:00 Temperature 100.0 F H 100.0 F H 99.9 F H Pulse Rate 77 70 71 Respiratory Rate 17 21 22 Blood Pressure 98/68 L 93/61 L 94/63 L Pulse Oximetry 97 97 97 10/08/17 02:15 10/08/17 02:30 10/08/17 02:45 Temperature 99.9 F H 100.0 F H 100.0 F H Pulse Rate 73 74 74 Respiratory Rate 20 19 18 Blood Pressure 94/62 L 93/64 L 92/62 L Pulse Oximetry 98 97 97 10/08/17 03:00 10/08/17 03:15 10/08/17 03:30 Temperature 100.0 F H 100.0 F H 100.0 F H Pulse Rate 69 71 77 Respiratory Rate 15 17 15 Blood Pressure 86/55 L 87/57 L 95/63 L Pulse Oximetry 97 97 97 10/08/17 03:54 10/08/17 04:00 10/08/17 04:49 Temperature 99.9 F H 99.9 F H 99.9 F H Pulse Rate 90 90 71 Respiratory Rate 16 23 15 Blood Pressure 102/67 102/67 83/53 L Pulse Oximetry 90 L 95 96 10/08/17 05:00 10/08/17 05:02 10/08/17 05:15 Temperature 99.9 F H 99.7 F H Pulse Rate 69 69 75 Respiratory Rate 15 15 15 Blood Pressure 83/52 L 87/56 L Pulse Oximetry 96 97 10/08/17 05:30 10/08/17 05:45 10/08/17 06:00 Temperature 99.7 F H 99.7 F H 99.5 F Pulse Rate 71 72 69 Respiratory Rate 15 23 24 Blood Pressure 84/55 L 87/58 L 88/58 L Pulse Oximetry 96 97 97 10/08/17 06:15 10/08/17 06:30 10/08/17 06:48 Temperature 99.5 F 99.3 F 99.3 F Pulse Rate 69 71 82 Respiratory Rate 21 21 14 Blood Pressure 88/56 L 95/61 L 107/72 Pulse Oximetry 97 97 85 L 10/08/17 07:00 10/08/17 07:01 10/08/17 07:15 Temperature 99.3 F 99.3 F 99.3 F Pulse Rate 96 H 93 H 102 H Respiratory Rate 31 H 18 26 H Blood Pressure 114/74 120/76 Pulse Oximetry 93 L 87 L 10/08/17 07:30 10/08/17 07:45 10/08/17 08:00 Temperature 99.3 F 99.5 F 99.5 F Pulse Rate 80 71 74 Respiratory Rate 15 15 15 Blood Pressure 99/61 L 87/54 L 82/53 L Pulse Oximetry 96 96 96 10/08/17 08:15 10/08/17 08:27 10/08/17 08:28 Temperature 99.5 F 99.5 F Pulse Rate 67 75 Respiratory Rate 15 15 15 Blood Pressure 80/50 L 103/67 Pulse Oximetry 96 96 96 10/08/17 08:30 08/27/18 08:32 10/08/17 08:45 Temperature 99.5 F 99.5 F Pulse Rate 76 75 71 Respiratory Rate 15 15 15 Blood Pressure 102/65 95/58 L Pulse Oximetry 97 100 10/08/17 09:00 10/08/17 09:15 10/08/17 09:30 Temperature 99.5 F 99.5 F 99.5 F Pulse Rate 74 77 74 Respiratory Rate 15 15 23 Blood Pressure 89/55 L 97/64 L 100/66 Pulse Oximetry 99 99 99 10/08/17 09:45 10/08/17 10:00 10/08/17 10:15 Temperature 99.3 F 99.1 F 99.1 F Pulse Rate 70 72 85 Respiratory Rate 22 20 14 Blood Pressure 99/60 L 103/66 114/83 Pulse Oximetry 99 99 97 10/08/17 10:30 Temperature 99.3 F Pulse Rate 79 Respiratory Rate 15 Blood Pressure 111/70 Pulse Oximetry 98 Intake & Output 10/07/17 10/08/17 10/08/17 18:59 06:59 18:59 Intake Total 1243 / 1243 1797 / 1797 Output Total 650 / 650 450 / 450 Balance 593 / 593 1347 / 1347 Weight 74.5 kg Intake: IV 964 / 964 1350 / 1350 D5W Inj 1,000 ML @ 84 mls/hr IV 754 / 754 1000 / 1000 .CONT .[id number] [facility] Rx#:[id number] Calcium Chloride Inj 1 GM In NS 110 / 110 Inj 100 ML @ 110 mls/hr IV.SIG ONCE ONE Rx#:[id number] Zosyn 2.25 GM Premix 50 ML @ 50 / 50 100 / 100 100 mls/hr IV.SIG Q6H [facility] Rx#: [id number] Zosyn 3.375 GM Premix 50 ML @ 50 / 50 100 mls/hr IV.SIG Q8H [facility] Rx#: [id number] fentaNYL 10 mcg/mL Premix Drip 250 / 250 2,500 mcg In 250 ml @ 50 MCG/HR 5 mls/hr IV.SIG TITRATE PRN Rx #:[id number] Tube Feeding 147 / 147 Tube Irrigant 300 / 300 Intake (Blood Product) Amt 279 / 279 0 / 0 Plt Pheresis B Leukoreduced 279 / 279 Unit [id number] Pre-Pooled Cryo Thawed 10units 0 / 0 0 / 0 Unit [id number] Output: Urine Amount (Catheter) 650 / 650 450 / 450 Indwelling Urethral Catheter 650 / 650 450 / 450 Narrative: GENERAL: Lightly sedated and intubated SKIN: Warm and dry. HEAD: Atraumatic. Normocephalic. EYES: Pupils equal and round. No scleral icterus. No injection or drainage. ENT: No nasal bleeding or discharge. Mucous membranes pink and moist. NECK: Trachea midline. No JVD. CARDIOVASCULAR: Regular rate and rhythm. RESPIRATORY: No accessory muscle use. Decreased breath sounds bilaterally. GASTROINTESTINAL: Abdomen soft, non-tender, nondistended. Hepatic and splenic margins not palpable. MUSCULOSKELETAL: Extremities without clubbing, cyanosis, or edema. No obvious deformities. NEUROLOGICAL: Intubated and lightly sedated - Urinary Catheter Management Indwelling Urethral Catheter Cath placed during this visit: yes Reason for continuing: Hourly intake/output Insertion date: 10/03/17 Insertion time: 18:00 Assessment and Plan - Assessment (1) NSTEMI (non-ST elevated myocardial infarction) Code(s): I21.4 - Non-ST elevation (NSTEMI) myocardial infarction Status: Acute (2) Electrolyte imbalance Code(s): E87.8 - Other disorders of electrolyte and fluid balance, not elsewhere classified Status: Acute (3) Pleural effusion Code(s): J90 - Pleural effusion, not elsewhere classified Status: Acute (4) JAVON (acute kidney injury) Code(s): N17.9 - Acute kidney failure, unspecified Status: Acute (5) Confusion Code(s): R41.0 - Disorientation, unspecified Status: Acute (6) Dyspnea Code(s): R06.00 - Dyspnea, unspecified Status: Acute (7) Hypertension Code(s): I10 - Essential (primary) hypertension Status: Acute - Plan 1) Overall relatively stable 2) Lab abnormalities somewhat normalizing 3) Vent per critical care 4) NSTEMI Not an ischemic candidate work up Con't medical management 5) Palliative care following
[2017-10-08] MEDS ORDERED: Vancomycin Inj 1,000 MG in Sodium Chlor 0.9% Inj 250 ML IV.SIG ONE (12:00)
--- NOTE | 2017-10-08 15:39 | MB ---
cc: Evelyn Benites MD DATE: 10/08/2017 REASON FOR CONSULTATION: Change in mental status, encephalopathy. HISTORY OF PRESENT ILLNESS: Taken from the chart as the patient is intubated and sedated. He is an 82-year-old man who was apparently found on the floor in his apartment with the door open. Neighbors apparently checked on him and found him unresponsive. He was brought into the ED for an extensive workup to rule out trauma. CT showed atrophy of the brain, some small effusion on chest x-ray, of 3.7, infrarenal abdominal aortic aneurysm, nonobstructing right renal stone. Apparently, he was given some bolus of saline and 2 amps of bicarbonate. ABG done. Broad spectrum antibiotics given. He was found to be critically ill with multiorgan failure. Next day, he was not on any pressors, was agitated and required restraints, still remained lethargic but arousable, incomprehensible. He finally was identified and then on 10/06/2017 overnight, he developed worsening hypoxia with periods of apnea, intubated for airway protection. He is still intubated. He was placed on some Julian-Synephrine, fentanyl. Renal function was improving. He was also on Levophed as of today. PHYSICAL EXAMINATION: VITAL SIGNS: Temperature is 99.3 core, pulse 79, respiratory rate 15, blood pressure 111/70, saturating at 98% on FiO2 of 40%. GENERAL: He is intubated, sedated, as stated. He briefly opened his eyes to his name. Pupils were 1 mm down to pinpoint. No gaze deviation. He had his arms in restraints. He withdrew his legs. Did not follow commands for wiggling toes or squeezing my hand with his data quality consultant. Difficult to tell if he had any nasolabial fold attenuation or any lateralizing weakness. He continued to be agitated while examining him. LABORATORY DATA: Labs are reviewed. His white count is 11.6, his platelets are low at 33,000. Segmented neutrophils 79, bandemia of 14. Toxicology screen on admission was negative. Alcohol less than 3. Coagulation panel: His INR today is 1.7, PTT 36.4. Chemistry showed AST of 527, ALT of 969. Ammonia 17, today is less than 10. B12 greater than 2000. Albumin is low at 1.9. TSH is 0.768 BUN 61, creatinine 1.51, GFR 45, glucose of 84. Lactic acid 2.3. Cultures pending on his urine. The culture had no growth at 48 hours. Blood cultures are negative as well. IMAGING: Chest x-ray showed worsening right greater than left bibasilar consolidation and small pleural effusions. Head CT, this is the second one and was done 10/06/2017, that was stable. No acute infarct noted. Cardiology had seen the patient today as well and recommended medical management for non-ST elevated myocardial infarction, not ischemic candidate workup. Palliative Care was following as well. IMPRESSION: An 82-year-old man with ongoing encephalopathy. At this point in time, I would recommend that he undergo an electroencephalogram and we will add an MRI of the brain to make sure that he does not have any embolic phenomenon/acute infarct that cannot be seen on his CAT scan. Continue current care per other consultants and further recommendations accordingly. MD YURYI Cruz/nikki/carey , 01:51 PM , 02:00 PM
[2017-10-09] MEDS: Insulin NovoLOG Aspart Correctional Sugar Inj SQ SCH ×4 (00:52→18:29)
[2017-10-09] MEDS: Piperacil/Tazo 2.25 GM Premix 50 ML IV.SIG SCH ×2 (03:23→08:16)
[2017-10-09 06:50] LABS: Baso % (Auto) 0.2 % (0.0-2.0); Eos # (Auto) 0.1 th/mm3 (0.0-0.4); Eos % (Auto) 1.4 % (0.0-4.0); Hematocrit 41.1 % (39.0-51.0); Hemoglobin 13.6 gm/dL (13.0-17.0); Lymph # (Auto) 0.6 th/mm3 (1.0-4.8); Lymph % (Auto) 6.7 % (9.0-44.0); Mean Corpuscular HGB Conc 33.1 % (32.0-36.0); Mean Corpuscular Hemoglobin 31.4 pg (27.0-34.0); Mean Platelet Volume 10.7 fL (7.0-11.0); Mono # (Auto) 0.6 th/mm3 (0.0-0.9); Mono % (Auto) 6.1 % (0.0-8.0); Neut # (Auto) 8.2 th/mm3 (1.8-7.7); Neut % (Auto) 85.6 % (16.0-70.0); Platelet Count 37 th/mm3 (150-450); Red Blood Count 4.33 mil/mm3 (4.50-5.90); Red Cell Distribution Width 16.7 % (11.6-17.2); White Blood Count 9.5 th/mm3 (4.0-11.0)
[2017-10-09 06:56] LABS: INR 1.5 Ratio; Prothrombin Time 15.3 sec (9.8-11.6)
[2017-10-09 07:18] LABS: Albumin 1.8 g/dL (3.4-5.0); Carbon Dioxide 26.5 meq/L (21.0-32.0); Magnesium 2.2 mg/dL (1.5-2.5); Phosphorus 3.1 mg/dL (2.5-4.9); Potassium 3.3 meq/L (3.5-5.1)
[2017-10-09 07:20] LABS: Total Protein 4.2 g/dL (6.4-8.2); Vancomycin,Random 15.9 Comment
--- NOTE | 2017-10-09 07:23 | P.PNCC ---
Subjective Subjective Remarks/Hospital Course: Patient is an elderly male with unknown past medical history who was found on the floor of his apartment with door open. Apparently neighbors checked on him and found him unresponsive on the floor. Patient was brought to the emergency department and underwent extensive workup to rule out trauma. CT of the head showed moderate to severe atrophy, CT of the chest showed moderate right-sided and small left effusion. 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 X-ray of his right elbow showed a possible olecranon spur discontinuity. Multiple lab abnormalities white count was 12.8 with 87% neutrophils platelet count 60 INR was 2.3. UA showed evidence of UTI, patient received a dose of cefepime for severe sepsis. Also his troponin was elevated at 6.8, lactic acid was 8.3 BUN 67 creatinine 2.71. Patient received 2 L normal saline boluses. Dr. Jaimes from cardiology was contacted for an STEMI. Due to poor mentation and multiorgan failure patient was deemed not a candidate for cardiac catheterization. Cannot use aspirin or heparin due to platelet count of 60,000 INR of 2.3. Other abnormal labs included transaminitis and elevated CPK. I evaluated the patient in the emergency department. He is severely encephalopathic appears critical, tachypneic but protecting airway. He is not able to say his name or mouth any words. He continues to move his head side to side but not communicative. I have added additional 2 L normal saline bolus, give 2 A of bicarb. Check ABG. Broad-spectrum antibiotics with vancomycin 1 dose and renally dosed Zosyn. Patient is very critically ill and has multiorgan failure, overall prognosis appears very poor. 10/04: This morning patient is not on any pressors. He is awake, agitated at times requiring restraints. He is saying incomprehensible words. T-max of 99.1. Urine output is minimal. 10/05: No events over the night. T-max of 98.4. Patient's mental status remains unchanged. Lethargic but easily arousable, not following any commands, saying incomprehensible words. Urine output of 525 mL's over the last 24 hours. Patient identified as Pablo Slater, 82-year-old gentleman. Still no family contact yet. 10/06: Over the night, patient developed worsening hypoxia with periods of apnea therefore he was intubated and now he is mechanically ventilated. This morning he is on no sedation, thrashing in bed, not following any commands. T-max of 99.9. Urine output is low, 200 mL's over the last 24 hours. Low blood pressure over the night noted, 1000 mL's of LR bolus given map remains borderline low normal. Morning chest x-ray reviewed, bibasilar infiltrates, right greater than left. ET tube is in good position. ROS -unobtainable due to patient's mental status SUBJECTIVE: 10/07: Low-grade temperatures overnight. Remains on norepinephrine drip at 2 mcg /min. Arousable on fentanyl drip at 100 mg an hour. No bowel movement. 10/08 Patient remains intubated and sedated with Fentanyl infusion. Afebrile. On Levophed 1 tu. Renal function is improving with Cr: 1.51 from 1.71. 10/09 No events overnight intubated and sedated with Fentanyl infusion on Levophed 2 mics. T:99.7. Objective Vital Signs / I&O: Vital Signs 10/08/17 07:30 10/08/17 07:45 10/08/17 08:00 Temperature 99.3 F 99.5 F 99.5 F Pulse Rate 80 71 74 Respiratory Rate 15 15 15 Blood Pressure 99/61 L 87/54 L 82/53 L Pulse Oximetry 96 96 96 10/08/17 08:15 10/08/17 08:27 10/08/17 08:28 Temperature 99.5 F 99.5 F Pulse Rate 67 75 Respiratory Rate 15 15 15 Blood Pressure 80/50 L 103/67 Pulse Oximetry 96 96 96 10/08/17 08:30 10/08/17 08:32 10/08/17 08:45 Temperature 99.5 F 99.5 F Pulse Rate 76 75 71 Respiratory Rate 15 15 15 Blood Pressure 102/65 95/58 L Pulse Oximetry 97 100 10/08/17 09:00 10/08/17 09:15 10/08/17 09:30 Temperature 99.5 F 99.5 F 99.5 F Pulse Rate 74 77 74 Respiratory Rate 15 15 23 Blood Pressure 89/55 L 97/64 L 100/66 Pulse Oximetry 99 99 99 10/08/17 09:45 10/08/17 10:00 10/08/17 10:15 Temperature 99.3 F 99.1 F 99.1 F Pulse Rate 70 72 85 Respiratory Rate 22 20 14 Blood Pressure 99/60 L 103/66 114/83 Pulse Oximetry 99 99 97 10/08/17 10:30 10/08/17 10:45 10/08/17 11:00 Temperature 99.3 F 99.3 F 99.3 F Pulse Rate 79 74 75 Respiratory Rate 15 15 15 Blood Pressure 111/70 103/59 L 99/64 L Pulse Oximetry 98 99 98 10/08/17 11:15 10/08/17 11:30 10/08/17 11:45 Temperature 99.3 F 99.3 F 99.3 F Pulse Rate 74 74 79 Respiratory Rate 15 15 15 Blood Pressure 101/66 100/65 102/69 Pulse Oximetry 99 100 98 10/08/17 12:00 10/08/17 12:15 10/08/17 12:30 Temperature 99.3 F 99.3 F 99.3 F Pulse Rate 77 74 73 Respiratory Rate 16 15 16 Blood Pressure 102/70 99/66 L 97/67 L Pulse Oximetry 98 99 99 10/08/17 12:45 10/08/17 13:00 10/08/17 13:15 Temperature 99.1 F 99.1 F Pulse Rate 72 71 89 Respiratory Rate 23 21 16 Blood Pressure 97/63 L 99/61 L 113/73 Pulse Oximetry 98 99 96 10/08/17 13:31 10/08/17 13:45 10/08/17 14:00 Temperature Pulse Rate 101 H 92 H 78 Respiratory Rate 17 15 15 Blood Pressure 128/83 115/81 102/69 Pulse Oximetry 96 96 99 10/08/17 14:15 10/08/17 14:30 10/08/17 14:45 Temperature 99.3 F Pulse Rate 80 75 75 Respiratory Rate 15 15 15 Blood Pressure 103/71 97/66 L 99/66 L Pulse Oximetry 97 98 98 10/08/17 15:00 10/08/17 15:15 10/08/17 15:30 Temperature 99.3 F 99.3 F 99.3 F Pulse Rate 72 72 71 Respiratory Rate 15 15 15 Blood Pressure 96/62 L 98/62 L 101/64 Pulse Oximetry 98 98 99 10/08/17 15:45 10/08/17 16:00 10/08/17 16:12 Temperature 99.3 F 99.3 F Pulse Rate 73 70 79 Respiratory Rate 22 16 15 Blood Pressure 104/69 97/64 L Pulse Oximetry 99 99 98 10/08/17 16:15 10/08/17 16:30 10/08/17 16:45 Temperature 99.1 F 99.1 F 99.3 F Pulse Rate 81 80 77 Respiratory Rate 16 15 15 Blood Pressure 106/66 111/77 102/66 Pulse Oximetry 98 96 97 10/08/17 17:00 10/08/17 17:15 10/08/17 17:30 Temperature 99.5 F 99.5 F 99.5 F Pulse Rate 75 73 72 Respiratory Rate 15 15 15 Blood Pressure 99/64 L 96/63 L 96/61 L Pulse Oximetry 97 97 98 10/08/17 17:45 10/08/17 18:00 10/08/17 18:15 Temperature 99.3 F 99.5 F 99.5 F Pulse Rate 74 74 73 Respiratory Rate 15 15 22 Blood Pressure 102/65 107/70 110/68 Pulse Oximetry 97 97 98 10/08/17 18:30 10/08/17 18:46 10/08/17 19:00 Temperature 99.5 F 99.5 F 99.5 F Pulse Rate 70 80 81 Respiratory Rate 23 17 15 Blood Pressure 110/69 106/71 118/77 Pulse Oximetry 98 95 97 10/08/17 19:15 10/08/17 19:30 10/08/17 19:45 Temperature 99.5 F 99.5 F 99.5 F Pulse Rate 77 76 75 Respiratory Rate 15 15 15 Blood Pressure 101/68 99/68 L 97/66 L Pulse Oximetry 97 97 98 10/08/17 19:50 10/08/17 20:00 10/08/17 20:15 Temperature 99.5 F 99.5 F Pulse Rate 70 73 73 Respiratory Rate 23 15 15 Blood Pressure 96/67 L 98/64 L Pulse Oximetry 97 98 10/08/17 20:30 10/08/17 20:45 10/08/17 21:00 Temperature 99.5 F 99.5 F 99.5 F Pulse Rate 73 80 75 Respiratory Rate 15 15 15 Blood Pressure 103/66 114/78 108/74 Pulse Oximetry 98 99 97 10/08/17 21:15 10/08/17 21:30 10/08/17 21:45 Temperature 99.5 F 99.5 F 99.3 F Pulse Rate 74 72 72 Respiratory Rate 15 15 22 Blood Pressure 103/70 100/68 101/64 Pulse Oximetry 98 98 98 10/08/17 22:00 10/08/17 22:01 10/08/17 22:15 Temperature 99.3 F 99.3 F 99.3 F Pulse Rate 70 70 71 Respiratory Rate 19 18 20 Blood Pressure 117/69 109/67 Pulse Oximetry 99 99 99 10/08/17 22:30 10/08/17 22:45 10/08/17 23:00 Temperature 99.3 F 99.5 F 99.5 F Pulse Rate 72 72 72 Respiratory Rate 21 22 21 Blood Pressure 104/69 104/69 107/68 Pulse Oximetry 99 99 99 10/08/17 23:15 10/08/17 23:31 10/08/17 23:45 Temperature 99.5 F 99.5 F 99.5 F Pulse Rate 72 72 74 Respiratory Rate 21 18 16 Blood Pressure 104/68 109/64 108/71 Pulse Oximetry 99 98 98 10/09/17 00:00 10/09/17 00:15 10/09/17 00:30 Temperature 99.5 F 99.5 F 99.5 F Pulse Rate 72 71 71 Respiratory Rate 17 20 18 Blood Pressure 105/69 103/65 106/66 Pulse Oximetry 98 98 98 10/09/17 00:45 10/09/17 01:00 10/09/17 01:15 Temperature 99.5 F 99.5 F 99.5 F Pulse Rate 71 72 77 Respiratory Rate 19 20 15 Blood Pressure 107/68 104/70 108/67 Pulse Oximetry 98 98 99 10/09/17 01:30 10/09/17 01:45 10/09/17 02:00 Temperature 99.7 F H 99.7 F H 99.7 F H Pulse Rate 74 69 70 Respiratory Rate 15 15 15 Blood Pressure 106/68 100/60 102/63 Pulse Oximetry 98 98 98 10/09/17 02:15 10/09/17 02:30 10/09/17 04:37 Temperature 99.7 F H 99.7 F H Pulse Rate 69 72 Respiratory Rate 15 27 H 15 Blood Pressure 101/64 107/70 Pulse Oximetry 98 98 95 Intake & Output 10/08/17 10/09/17 10/09/17 18:59 06:59 18:59 Intake Total 1890 / 1890 350 / 350 Output Total 1050 / 1050 Balance 840 / 840 350 / 350 Intake: IV 1300 / 1300 350 / 350 D5W Inj 1,000 ML @ 84 mls/hr IV 1000 / 1000 .CONT .[id number] [facility] Rx#:[id number] Zosyn 2.25 GM Premix 50 ML @ 50 / 50 100 / 100 100 mls/hr IV.SIG Q6H [facility] Rx#: [id number] Vancomycin Inj 1,000 MG In NS 250 / 250 Inj 250 ML @ 250 mls/hr IV.SIG ONCE ONE Rx#:[id number] fentaNYL 10 mcg/mL Premix Drip 250 / 250 2,500 mcg In 250 ml @ 50 MCG/HR 5 mls/hr IV.SIG TITRATE PRN Rx #:[id number] Tube Feeding 590 / 590 Output: Urine Amount (Catheter) 1050 / 1050 Indwelling Urethral Catheter 1050 / 1050 Result Diagrams: 10/09/17 05:20 10/09/17 05:20 Other Results: Laboratory Results - last 12 hr 10/09/17 10/09/17 10/09/17 00:20 05:20 05:20 WBC 9.5 RBC 4.33 L Hgb 13.6 Hct 41.1 MCV 95.0 MCH 31.4 MCHC 33.1 RDW 16.7 Plt Count 37 L MPV 10.7 Prelim Diff (Auto) Slide review pending Neut % (Auto) 85.6 H Lymph % (Auto) 6.7 L Treasure % (Auto) 6.1 Eos % (Auto) 1.4 Baso % (Auto) 0.2 Neut # (Auto) 8.2 H Lymph # (Auto) 0.6 L Treasure # (Auto) 0.6 Eos # (Auto) 0.1 Baso # (Auto) 0.0 Differential Comment . PT 15.3 H INR 1.5 POC Glucose 114 H 10/09/17 06:01 WBC RBC Hgb Hct MCV MCH MCHC RDW Plt Count MPV Prelim Diff (Auto) Neut % (Auto) Lymph % (Auto) Treasure % (Auto) Eos % (Auto) Baso % (Auto) Neut # (Auto) Lymph # (Auto) Treasure # (Auto) Eos # (Auto) Baso # (Auto) Differential Comment PT INR POC Glucose 119 H Imaging: Elbow X-Ray 10/03/17 18:31 CONCLUSION: There is discontinuity of the tip of a small olecranon spur without soft tissue swelling. Cannot exclude a fracture. Recommend correlation with clinical exam for point tenderness in this area. Hip X-Ray 10/03/17 18:31 CONCLUSION: No fracture seen. Lumbar Spine X-Ray 10/03/17 18:31 CONCLUSION: 60% anterior compression fracture of L2. No retropulsed fragments seen. Cervical Spine CT 10/03/17 18:35 CONCLUSION: 1. No evidence of compression deformity, fracture, or spondylolisthesis. 2. Advanced hypertrophic degenerative changes in the facet joints, more severe on the right. Abdomen/Pelvis CT 10/03/17 18:38 CONCLUSION: 1. Bilateral pleural effusions, right greater than left. 2. Nonobstructing 4 mm stone in the right renal collecting system. 3. 3.7 cm infrarenal abdominal aortic aneurysm. 4. Small fat-containing left inguinal hernia. Chest CT 10/03/17 18:38 CONCLUSION: 1. Large right and small left pleural effusion. 2. No fracture seen. No evidence of pneumothorax. Liver Ultrasound 10/04/17 00:00 CONCLUSION: 1. No evidence of gallstones or biliary tract obstruction. 2. There is a cyst along the upper pole the right kidney measuring 3 cm. 3. Bilateral pleural effusions. Head CT 10/06/17 00:00 CONCLUSION: 1. Stable evaluation the brain. 2. No evidence of acute infarct, hemorrhage, mass or edema. . Chest X-Ray 10/08/17 06:00 CONCLUSION: Worsening right greater than left bibasilar consolidation and small pleural effusions. Objective Remarks: GENERAL: Elderly gentleman, poorly nourished, very deconditioned, ill-appearing , intubated HEENT: Pupils are equal and reactive. Sclerae anicteric. Neck supple without rigidity. Orally intubated. Neck veins are nondistended. No carotid bruit. CHEST: Scattered coarse breath sounds bilateral, decreased breath sounds at bases but overall improved air entry. No wheezes. CARDIOVASCULAR: Regular heart sounds, without murmurs. ABDOMEN: Soft, nontender, nondistended. Bowel sounds are decreased. No hepatomegaly or splenomegaly appreciated. MUSCULOSKELETAL: Remains tepid. 2+ peripheral pitting edema. Pulses are present. Dusky discoloration of the plantar surface of the toes. NEUROLOGICAL: Patient is intubated, lethargic, arousable by opening eyes and withdrawing to bilateral upper and lower extremities but he does not follow any commands. Grimaces to pain. Pupils remain equal and reactive. Assessment and Plan - Assessment and Plan Plan: 1. Acute hypoxic respiratory failure -now intubated and mechanically ventilated 2. Acute encephalopathy, likely toxic metabolic -probably some degree of dementia at base, no improvement so far 3. Acute RI -followed by cardiology 4. Severe sepsis 5. Lactic/metabolic acidosis -lactic acid remains elevated despite adequate fluid resuscitation, likely in the setting of liver insufficiency 6. Bibasilar pneumonia 7. Transaminitis -liver enzymes are slowly trending down 8. JAVON -creatinine remains elevated and urine output remains low 9. Hypernatremia -slowly improving 10. Coagulopathy with thrombocytopenia -worsening 11. L2 compression deformity/acuity unknown 12. Moderate to large right-sided effusion with small left pleural effusion Plan Neuro: On Fentanyl and infusion for sedation. Daily sedation vacation. 10/06 CT brain: No evidence of acute infarct, hemorrhage, mass or edema. For MRI brain today, follow up on EEG results, neuro is following- Dr. Benites Pulm: Continue with vent support keep sats >92% Bronchodilators, ICU vent bundle. CXR: Bibasilar consolidation. Will proceed with US guided right thoracentesis today CV: Monitor HR and BP kep MAP>65mmHg, on Levophed 1 tu Lactic acid trending down 2.3 10/07 from 5.9 No aspirin or heparin due to worsening thrombocytopenia and coagulopathy No statin due to elevated liver enzymes Follow up on echo results : Monitor renal function, I/O's, electrolytes replacement as needed. Renal function continue to improve with Cr: 1.36 from 1.51, diurese with Lasix 40mg x1 Will need K replacement today ID: Continue abx(Vanco and piperacillin/tazobactam). BC, urine cx 10/03: No growth, check sputum cx GI: On Prevacid 30mg daily. Monitor LFT's, Liver ultrasound reviewed -no gallstones or biliary tract obstruction. Change tube feeds to Glucerna 1.5 with goal rate 50ml/hr Heme: Monitor CBC, Coags, s/p Transfuse 1 packed leuko-reduced platelets, and 1 cryo due to worsening thrombocytopenia on 10/07 Transfuse 1u FFP and 2u PLT for thoracentesis today Endo: SSI for glycemic control DVT prophylaxis with SCDs and GI prophylaxis with lansoprazole Palliative care consulted Lines: Right IJ CVP 10/06 Level 3
[2017-10-09] MEDS ORDERED: Magnesium Sulfate Inj 4 GM in Sodium Chlor 0.9% Inj 92 ML IV.SIG PRN (07:25)
[2017-10-09] MEDS ORDERED: Sodium Phosphate Inj 30 MMOL in Sodium Chlor 0.9% Inj 250 ML IV.SIG PRN (07:25)
[2017-10-09] MEDS ORDERED: Magnesium Oxide 400 MG Tablet PO PRN (07:25)
[2017-10-09] MEDS ORDERED: Magnesium Sulfate Inj 2 GM in Sodium Chlor 0.9% Inj 96 ML IV.SIG PRN (07:25)
[2017-10-09] MEDS ORDERED: Potassium Phosphate 500 MG Soluble Tablet PO PRN ×2 (07:25)
[2017-10-09] MEDS ORDERED: Potassium Chlor 40 mEq Premix 40 MEQ/100 ML PIGGYBACK IV.SIG PRN ×2 (07:25)
[2017-10-09] MEDS ORDERED: Potassium Phosphate Inj 30 MMOL in Sodium Chlor 0.9% Inj 250 ML IV.SIG PRN (07:25)
[2017-10-09] MEDS ORDERED: Potassium Chloride 25 MEQ Effervescent Tablet PO PRN (07:25)
[2017-10-09] MEDS ORDERED: Potassium Chlor 20 mEq Premix 20 MEQ/100 ML PIGGYBACK IV.SIG PRN (07:25)
[2017-10-09 07:42] LABS: Lymphocytes 4 % (9-44); Monocytes 1 % (0-8); Platelet Morphology Normal (Normal); Tallied Nucleated RBC 1 (0-0)
[2017-10-09 07:43] LABS: Ovalocytes 1+
[2017-10-09] MEDS: Senna/Docusate Sodium 8.6/50 MG Tablet PO SCH ×2 (08:17→21:33)
[2017-10-09] MEDS: Hypromellose 0.3% Opth Gel 10 GM Bottle EACH EYE SCH ×2 (08:17→21:33)
[2017-10-09] MEDS: fentaNYL 10 mcg/mL Premix Drip 2,500 MCG/250 ML BAG IV.SIG PRN (08:18)
[2017-10-09] MEDS: Potassium Chlor 20 mEq Premix 20 MEQ/100 ML PIGGYBACK IV.SIG PRN ×2 (08:24→10:08)
--- NOTE | 2017-10-09 11:56 | P.PNCA ---
Subjective Interval history: No events overnight Light sedation, Levophed at 2 Physical Exam Vital signs: Vital Signs 10/08/17 12:00 10/08/17 12:15 10/08/17 12:30 Temperature 99.3 F 99.3 F 99.3 F Pulse Rate 77 74 73 Respiratory Rate 16 15 16 Blood Pressure 102/70 99/66 L 97/67 L Pulse Oximetry 98 99 99 10/08/17 12:45 10/08/17 13:00 10/08/17 13:15 Temperature 99.1 F 99.1 F Pulse Rate 72 71 89 Respiratory Rate 23 21 16 Blood Pressure 97/63 L 99/61 L 113/73 Pulse Oximetry 98 99 96 10/08/17 13:31 10/08/17 13:45 10/08/17 14:00 Temperature Pulse Rate 101 H 92 H 78 Respiratory Rate 17 15 15 Blood Pressure 128/83 115/81 102/69 Pulse Oximetry 96 96 99 10/08/17 14:15 10/08/17 14:30 10/08/17 14:45 Temperature 99.3 F Pulse Rate 80 75 75 Respiratory Rate 15 15 15 Blood Pressure 103/71 97/66 L 99/66 L Pulse Oximetry 97 98 98 10/08/17 15:00 10/08/17 15:15 10/08/17 15:30 Temperature 99.3 F 99.3 F 99.3 F Pulse Rate 72 72 71 Respiratory Rate 15 15 15 Blood Pressure 96/62 L 98/62 L 101/64 Pulse Oximetry 98 98 99 10/08/17 15:45 10/08/17 16:00 10/08/17 16:12 Temperature 99.3 F 99.3 F Pulse Rate 73 70 79 Respiratory Rate 22 16 15 Blood Pressure 104/69 97/64 L Pulse Oximetry 99 99 98 10/08/17 16:15 10/08/17 16:30 10/08/17 16:45 Temperature 99.1 F 99.1 F 99.3 F Pulse Rate 81 80 77 Respiratory Rate 16 15 15 Blood Pressure 106/66 111/77 102/66 Pulse Oximetry 98 96 97 10/08/17 17:00 10/08/17 17:15 10/08/17 17:30 Temperature 99.5 F 99.5 F 99.5 F Pulse Rate 75 73 72 Respiratory Rate 15 15 15 Blood Pressure 99/64 L 96/63 L 96/61 L Pulse Oximetry 97 97 98 10/08/17 17:45 10/08/17 18:00 10/08/17 18:15 Temperature 99.3 F 99.5 F 99.5 F Pulse Rate 74 74 73 Respiratory Rate 15 15 22 Blood Pressure 102/65 107/70 110/68 Pulse Oximetry 97 97 98 10/08/17 18:30 10/08/17 18:46 10/08/17 19:00 Temperature 99.5 F 99.5 F 99.5 F Pulse Rate 70 80 81 Respiratory Rate 23 17 15 Blood Pressure 110/69 106/71 118/77 Pulse Oximetry 98 95 97 10/08/17 19:15 10/08/17 19:30 10/08/17 19:45 Temperature 99.5 F 99.5 F 99.5 F Pulse Rate 77 76 75 Respiratory Rate 15 15 15 Blood Pressure 101/68 99/68 L 97/66 L Pulse Oximetry 97 97 98 10/08/17 19:50 10/08/17 20:00 10/08/17 20:15 Temperature 99.5 F 99.5 F Pulse Rate 70 73 73 Respiratory Rate 23 15 15 Blood Pressure 96/67 L 98/64 L Pulse Oximetry 97 98 10/08/17 20:30 10/08/17 20:45 10/08/17 21:00 Temperature 99.5 F 99.5 F 99.5 F Pulse Rate 73 80 75 Respiratory Rate 15 15 15 Blood Pressure 103/66 114/78 108/74 Pulse Oximetry 98 99 97 10/08/17 21:15 10/08/17 21:30 10/08/17 21:45 Temperature 99.5 F 99.5 F 99.3 F Pulse Rate 74 72 72 Respiratory Rate 15 15 22 Blood Pressure 103/70 100/68 101/64 Pulse Oximetry 98 98 98 10/08/17 22:00 10/08/17 22:01 10/08/17 22:15 Temperature 99.3 F 99.3 F 99.3 F Pulse Rate 70 70 71 Respiratory Rate 19 18 20 Blood Pressure 117/69 109/67 Pulse Oximetry 99 99 99 10/08/17 22:30 10/08/17 22:45 10/08/17 23:00 Temperature 99.3 F 99.5 F 99.5 F Pulse Rate 72 72 72 Respiratory Rate 21 22 21 Blood Pressure 104/69 104/69 107/68 Pulse Oximetry 99 99 99 10/08/17 23:15 10/08/17 23:31 10/08/17 23:45 Temperature 99.5 F 99.5 F 99.5 F Pulse Rate 72 72 74 Respiratory Rate 21 18 16 Blood Pressure 104/68 109/64 108/71 Pulse Oximetry 99 98 98 10/09/17 00:00 10/09/17 00:15 10/09/17 00:30 Temperature 99.5 F 99.5 F 99.5 F Pulse Rate 72 71 71 Respiratory Rate 17 20 18 Blood Pressure 105/69 103/65 106/66 Pulse Oximetry 98 98 98 10/09/17 00:45 10/09/17 01:00 10/09/17 01:15 Temperature 99.5 F 99.5 F 99.5 F Pulse Rate 71 72 77 Respiratory Rate 19 20 15 Blood Pressure 107/68 104/70 108/67 Pulse Oximetry 98 98 99 10/09/17 01:30 10/09/17 01:45 10/09/17 02:00 Temperature 99.7 F H 99.7 F H 99.7 F H Pulse Rate 74 69 70 Respiratory Rate 15 15 15 Blood Pressure 106/68 100/60 102/63 Pulse Oximetry 98 98 98 10/09/17 02:15 10/09/17 02:30 10/09/17 02:45 Temperature 99.7 F H 99.7 F H 99.5 F Pulse Rate 69 72 70 Respiratory Rate 15 27 H 19 Blood Pressure 101/64 107/70 104/66 Pulse Oximetry 98 98 98 10/09/17 03:00 10/09/17 03:05 10/09/17 03:15 Temperature 99.5 F 99.5 F 99.5 F Pulse Rate 94 H 91 H 90 Respiratory Rate 13 15 15 Blood Pressure 128/78 133/83 Pulse Oximetry 77 L 96 10/09/17 03:30 10/09/17 03:45 10/09/17 04:00 Temperature 99.7 F H 99.7 F H 99.5 F Pulse Rate 75 71 67 Respiratory Rate 15 15 15 Blood Pressure 104/63 101/66 98/59 L Pulse Oximetry 95 95 95 10/09/17 04:15 10/09/17 04:30 10/09/17 04:37 Temperature 99.5 F 99.5 F Pulse Rate 67 68 Respiratory Rate 15 15 15 Blood Pressure 99/64 L 102/65 Pulse Oximetry 95 95 95 10/09/17 04:45 10/09/17 05:00 10/09/17 05:15 Temperature 99.5 F 99.5 F 99.5 F Pulse Rate 72 75 72 Respiratory Rate 15 15 15 Blood Pressure 104/69 104/71 101/72 Pulse Oximetry 95 95 95 10/09/17 05:30 10/09/17 05:45 10/09/17 06:00 Temperature 99.5 F 99.5 F 99.5 F Pulse Rate 70 67 76 Respiratory Rate 15 15 17 Blood Pressure 101/69 102/64 106/68 Pulse Oximetry 95 94 L 94 L 10/09/17 06:15 10/09/17 06:30 10/09/17 06:45 Temperature 99.3 F 99.3 F 99.3 F Pulse Rate 68 68 70 Respiratory Rate 26 H 26 H 26 H Blood Pressure 109/70 108/70 108/72 Pulse Oximetry 95 96 96 10/09/17 07:00 10/09/17 07:15 10/09/17 07:30 Temperature 99.1 F 99.1 F 99.3 F Pulse Rate 71 72 71 Respiratory Rate 26 H 27 H 25 H Blood Pressure 106/75 108/77 111/76 Pulse Oximetry 96 97 97 10/09/17 08:00 10/09/17 08:16 10/09/17 08:30 Temperature 99.3 F 99.3 F 99.3 F Pulse Rate 69 80 92 H Respiratory Rate 24 16 15 Blood Pressure 112/69 109/76 125/83 Pulse Oximetry 96 95 92 L 10/09/17 08:45 10/09/17 08:56 10/09/17 09:00 Temperature 99.5 F 99.5 F 99.5 F Pulse Rate 85 85 86 Respiratory Rate 15 23 15 Blood Pressure 112/74 112/74 113/78 Pulse Oximetry 93 L 93 L 94 L 10/09/17 09:02 10/09/17 09:10 10/09/17 09:15 Temperature 99.5 F 99.5 F Pulse Rate 84 80 80 Respiratory Rate 15 15 15 Blood Pressure 105/71 105/71 Pulse Oximetry 94 L 94 L 94 L 10/09/17 09:22 10/09/17 09:30 08/28/18 09:35 Temperature 99.5 F 99.5 F 99.5 F Pulse Rate 79 79 69 Respiratory Rate 15 15 15 Blood Pressure 105/71 104/70 91/57 L Pulse Oximetry 94 L 95 94 L 10/09/17 09:45 10/09/17 10:00 10/09/17 11:00 Temperature 99.3 F 99.3 F 99.3 F Pulse Rate 69 92 H 83 Respiratory Rate 15 17 17 Blood Pressure 91/57 L 105/76 Pulse Oximetry 96 91 L 92 L 10/09/17 11:43 Temperature 99.1 F Pulse Rate 94 H Respiratory Rate 15 Blood Pressure 112/78 Pulse Oximetry 99 Intake & Output 10/08/17 10/09/17 10/09/17 18:59 06:59 18:59 Intake Total 1890 / 1890 1163 / 1163 400 / 400 Output Total 1050 / 1050 1500 / 1500 Balance 840 / 840 -337 / -337 400 / 400 Weight 74.5 kg Intake: IV 1300 / 1300 350 / 350 400 / 400 D5W Inj 1,000 ML @ 84 mls/hr IV 1000 / 1000 .CONT .[id number] [facility] Rx#:[id number] Zosyn 2.25 GM Premix 50 ML @ 50 / 50 100 / 100 50 / 50 100 mls/hr IV.SIG Q6H [facility] Rx#: [id number] KCl 20 mEq Premix Inj 20 meq In 100 / 100 100 ml @ 50 mls/hr IV.SIG Q2H PRN Rx#:[id number] Vancomycin Inj 1,000 MG In NS 250 / 250 Inj 250 ML @ 250 mls/hr IV.SIG ONCE ONE Rx#:[id number] fentaNYL 10 mcg/mL Premix Drip 250 / 250 250 / 250 2,500 mcg In 250 ml @ 50 MCG/HR 5 mls/hr IV.SIG TITRATE PRN Rx #:[id number] Tube Feeding 590 / 590 453 / 453 Water Bolus Amount 360 / 360 Intake (Blood Product) Amt 0 / 0 Plasma Thawed 5 Day Cp2d Unit 0 / 0 [id number] Plt Pheresis A Leukoreduced 0 / 0 Unit [id number] Plt Pheresis B Leukoreduced 0 / 0 Unit [id number] Output: Urine Amount (Catheter) 1050 / 1050 1500 / 1500 Indwelling Urethral Catheter 1050 / 1050 1500 / 1500 Other: Date of Last Bowel Movement 10/09/17 # Bowel Movements 1 # Incontinent Bowel Movements 1 Narrative: GENERAL: Lightly sedated and intubated SKIN: Warm and dry. HEAD: Atraumatic. Normocephalic. EYES: Pupils equal and round. No scleral icterus. No injection or drainage. ENT: No nasal bleeding or discharge. Mucous membranes pink and moist. NECK: Trachea midline. No JVD. CARDIOVASCULAR: Regular rate and rhythm. RESPIRATORY: No accessory muscle use. Decreased breath sounds bilaterally. GASTROINTESTINAL: Abdomen soft, non-tender, nondistended. Hepatic and splenic margins not palpable. MUSCULOSKELETAL: Extremities without clubbing, cyanosis, or edema. No obvious deformities. NEUROLOGICAL: Intubated and lightly sedated - Urinary Catheter Management Indwelling Urethral Catheter Cath placed during this visit: yes Reason for continuing: Hourly intake/output Insertion date: 10/03/17 Insertion time: 18:00 Assessment and Plan - Assessment (1) NSTEMI (non-ST elevated myocardial infarction) Code(s): I21.4 - Non-ST elevation (NSTEMI) myocardial infarction Status: Acute (2) Electrolyte imbalance Code(s): E87.8 - Other disorders of electrolyte and fluid balance, not elsewhere classified Status: Acute (3) Pleural effusion Code(s): J90 - Pleural effusion, not elsewhere classified Status: Acute (4) JAVON (acute kidney injury) Code(s): N17.9 - Acute kidney failure, unspecified Status: Acute (5) Confusion Code(s): R41.0 - Disorientation, unspecified Status: Acute (6) Dyspnea Code(s): R06.00 - Dyspnea, unspecified Status: Acute (7) Hypertension Code(s): I10 - Essential (primary) hypertension Status: Acute - Plan 1) Overall relatively stable 2) Lab abnormalities somewhat normalizing 3) Vent per critical care 4) NSTEMI Not an ischemic candidate work up Con't medical management 5) Palliative care following 6) MRI per neurology
--- NOTE | 2017-10-09 13:01 | P.PNPAL ---
Reason for Visit Reason for visit: a. To assist with evaluation and management of symptoms including: Confusion, dyspnea b. To assist medical decision maker(s) with: better understanding of current medical conditions; weighing benefits/burdens of medical treatment options; making medical treatment decisions. Subjective Subjective/Interval History: This is an elderly male patient who presented to [place] ED on 10/03/2017 as a Mario Schmidt after he was found in his apartment, unresponsive. He was subsequently admitted to the intensive care unit with multi organ failure, overall prognosis appeared poor. Overnight on 10/06/2017 patient developed worsening hypoxia with periods of apnea requiring intubation. Patient remains on ventilator support, requiring pressor support on Levophed 2 mics Clinical data: * Ongoing low-grade fever; T-max 99.5 rectal. * Pulse 94, respirations 15, BP 112/78, oxygen saturation 99% on 40% FiO2 via mechanical vent * WBC: 9.5, hemoglobin 13.6, hematocrit 41.1, platelets 37, neutrophils 85.6% * PT: 15.3, INR 1.5 * Sodium: 144, potassium 3.3, chloride 106, carbon dioxide 26.5, glucose 92, calcium 7.0, prot corrected calcium 8.6, phosphorus 3.1, magnesium 2.2 * BUN: 52, creatinine 1.36, GFR 50 * Total bilirubin: 14.1, AST 4.46, ALT 940, alkaline phosphatase 28 * Total protein: 4.2, albumin 1.8 * Negative urine and blood culture from 10/03/2017 * CXR on 10/08/2017 showed worsening right greater than left bibasilar consolidation and small pleural effusions. Patient is sedated with fentanyl. CT of the brain on 10/06/17 showed no evidence of acute infarct, hemorrhage, mass or edema. Neurology was consulted because of patient's ongoing encephalopathy. Plan for EEG and MRI of the brain later today. Will proceed with thoracentesis today; plan to transfuse patient with 1 unit FFP and 2units PLT [employer] and [employer] searches did not identify any potential family members. In accordance with the [place] statutes, it would be appropriated to proceed with patient's friend (Madina Acevedo) as the HCP decision maker. Healthcare proxy designation and acceptance form and notarized healthcare proxy of the dated were placed in the patient's chart and faxed to HIM to be scanned into the patient's EMR. Family/Friend Interactions: Palliative care meet with Ms. Acevedo to provide a medical update, discuss overall prognosis and clarify medical treatment goals. She indicates the patient had been feeling unwell for 7 to 10 days prior to his admission and had probable lost 10 pounds, but otherwise he was living independently in his own home and riding his bike to her restaurant daily. She states, "I think he still got something left; he's not ready to ." We briefly discuss the possible trach/PEG decision in upcoming days. She is familiar with the process of withdrawing artificial life support with her father's girlfriend; she states she is not afraid to make those decisions but only when she is certain it is the right thing to do. Goals remain aggressive; FULL CODE. Advance Directives Documented care wishes:: No known documented care wishes were completed. Objective Vital Signs: Vital Signs 10/08/17 12:45 10/08/17 13:00 10/08/17 13:15 Temperature 99.1 F 99.1 F Pulse Rate 72 71 89 Respiratory Rate 23 21 16 Blood Pressure 97/63 L 99/61 L 113/73 Pulse Oximetry 98 99 96 10/08/17 13:31 10/08/17 13:45 10/08/17 14:00 Temperature Pulse Rate 101 H 92 H 78 Respiratory Rate 17 15 15 Blood Pressure 128/83 115/81 102/69 Pulse Oximetry 96 96 99 10/08/17 14:15 10/08/17 14:30 10/08/17 14:45 Temperature 99.3 F Pulse Rate 80 75 75 Respiratory Rate 15 15 15 Blood Pressure 103/71 97/66 L 99/66 L Pulse Oximetry 97 98 98 10/08/17 15:00 10/08/17 15:15 10/08/17 15:30 Temperature 99.3 F 99.3 F 99.3 F Pulse Rate 72 72 71 Respiratory Rate 15 15 15 Blood Pressure 96/62 L 98/62 L 101/64 Pulse Oximetry 98 98 99 10/08/17 15:45 10/08/17 16:00 10/08/17 16:12 Temperature 99.3 F 99.3 F Pulse Rate 73 70 79 Respiratory Rate 22 16 15 Blood Pressure 104/69 97/64 L Pulse Oximetry 99 99 98 10/08/17 16:15 10/08/17 16:30 10/08/17 16:45 Temperature 99.1 F 99.1 F 99.3 F Pulse Rate 81 80 77 Respiratory Rate 16 15 15 Blood Pressure 106/66 111/77 102/66 Pulse Oximetry 98 96 97 10/08/17 17:00 10/08/17 17:15 10/08/17 17:30 Temperature 99.5 F 99.5 F 99.5 F Pulse Rate 75 73 72 Respiratory Rate 15 15 15 Blood Pressure 99/64 L 96/63 L 96/61 L Pulse Oximetry 97 97 98 10/08/17 17:45 10/08/17 18:00 10/08/17 18:15 Temperature 99.3 F 99.5 F 99.5 F Pulse Rate 74 74 73 Respiratory Rate 15 15 22 Blood Pressure 102/65 107/70 110/68 Pulse Oximetry 97 97 98 10/08/17 18:30 10/08/17 18:46 10/08/17 19:00 Temperature 99.5 F 99.5 F 99.5 F Pulse Rate 70 80 81 Respiratory Rate 23 17 15 Blood Pressure 110/69 106/71 118/77 Pulse Oximetry 98 95 97 10/08/17 19:15 10/08/17 19:30 10/08/17 19:45 Temperature 99.5 F 99.5 F 99.5 F Pulse Rate 77 76 75 Respiratory Rate 15 15 15 Blood Pressure 101/68 99/68 L 97/66 L Pulse Oximetry 97 97 98 10/08/17 19:50 10/08/17 20:00 10/08/17 20:15 Temperature 99.5 F 99.5 F Pulse Rate 70 73 73 Respiratory Rate 23 15 15 Blood Pressure 96/67 L 98/64 L Pulse Oximetry 97 98 10/08/17 20:30 10/08/17 20:45 10/08/17 21:00 Temperature 99.5 F 99.5 F 99.5 F Pulse Rate 73 80 75 Respiratory Rate 15 15 15 Blood Pressure 103/66 114/78 108/74 Pulse Oximetry 98 99 97 10/08/17 21:15 10/08/17 21:30 10/08/17 21:45 Temperature 99.5 F 99.5 F 99.3 F Pulse Rate 74 72 72 Respiratory Rate 15 15 22 Blood Pressure 103/70 100/68 101/64 Pulse Oximetry 98 98 98 10/08/17 22:00 10/08/17 22:01 10/08/17 22:15 Temperature 99.3 F 99.3 F 99.3 F Pulse Rate 70 70 71 Respiratory Rate 19 18 20 Blood Pressure 117/69 109/67 Pulse Oximetry 99 99 99 10/08/17 22:30 10/08/17 22:45 10/08/17 23:00 Temperature 99.3 F 99.5 F 99.5 F Pulse Rate 72 72 72 Respiratory Rate 21 22 21 Blood Pressure 104/69 104/69 107/68 Pulse Oximetry 99 99 99 10/08/17 23:15 10/08/17 23:31 10/08/17 23:45 Temperature 99.5 F 99.5 F 99.5 F Pulse Rate 72 72 74 Respiratory Rate 21 18 16 Blood Pressure 104/68 109/64 108/71 Pulse Oximetry 99 98 98 10/09/17 00:00 10/09/17 00:15 10/09/17 00:30 Temperature 99.5 F 99.5 F 99.5 F Pulse Rate 72 71 71 Respiratory Rate 17 20 18 Blood Pressure 105/69 103/65 106/66 Pulse Oximetry 98 98 98 10/09/17 00:45 10/09/17 01:00 10/09/17 01:15 Temperature 99.5 F 99.5 F 99.5 F Pulse Rate 71 72 77 Respiratory Rate 19 20 15 Blood Pressure 107/68 104/70 108/67 Pulse Oximetry 98 98 99 10/09/17 01:30 10/09/17 01:45 10/09/17 02:00 Temperature 99.7 F H 99.7 F H 99.7 F H Pulse Rate 74 69 70 Respiratory Rate 15 15 15 Blood Pressure 106/68 100/60 102/63 Pulse Oximetry 98 98 98 10/09/17 02:15 10/09/17 02:30 10/09/17 02:45 Temperature 99.7 F H 99.7 F H 99.5 F Pulse Rate 69 72 70 Respiratory Rate 15 27 H 19 Blood Pressure 101/64 107/70 104/66 Pulse Oximetry 98 98 98 10/09/17 03:00 10/09/17 03:05 10/09/17 03:15 Temperature 99.5 F 99.5 F 99.5 F Pulse Rate 94 H 91 H 90 Respiratory Rate 13 15 15 Blood Pressure 128/78 133/83 Pulse Oximetry 77 L 96 10/09/17 03:30 10/09/17 03:45 10/09/17 04:00 Temperature 99.7 F H 99.7 F H 99.5 F Pulse Rate 75 71 67 Respiratory Rate 15 15 15 Blood Pressure 104/63 101/66 98/59 L Pulse Oximetry 95 95 95 10/09/17 04:15 10/09/17 04:30 10/09/17 04:37 Temperature 99.5 F 99.5 F Pulse Rate 67 68 Respiratory Rate 15 15 15 Blood Pressure 99/64 L 102/65 Pulse Oximetry 95 95 95 10/09/17 04:45 10/09/17 05:00 10/09/17 05:15 Temperature 99.5 F 99.5 F 99.5 F Pulse Rate 72 75 72 Respiratory Rate 15 15 15 Blood Pressure 104/69 104/71 101/72 Pulse Oximetry 95 95 95 10/09/17 05:30 10/09/17 05:45 10/09/17 06:00 Temperature 99.5 F 99.5 F 99.5 F Pulse Rate 70 67 76 Respiratory Rate 15 15 17 Blood Pressure 101/69 102/64 106/68 Pulse Oximetry 95 94 L 94 L 10/09/17 06:15 10/09/17 06:30 10/09/17 06:45 Temperature 99.3 F 99.3 F 99.3 F Pulse Rate 68 68 70 Respiratory Rate 26 H 26 H 26 H Blood Pressure 109/70 108/70 108/72 Pulse Oximetry 95 96 96 10/09/17 07:00 10/09/17 07:15 10/09/17 07:30 Temperature 99.1 F 99.1 F 99.3 F Pulse Rate 71 72 71 Respiratory Rate 26 H 27 H 25 H Blood Pressure 106/75 108/77 111/76 Pulse Oximetry 96 97 97 10/09/17 08:00 10/09/17 08:16 10/09/17 08:30 Temperature 99.3 F 99.3 F 99.3 F Pulse Rate 69 80 92 H Respiratory Rate 24 16 15 Blood Pressure 112/69 109/76 125/83 Pulse Oximetry 96 95 92 L 10/09/17 08:45 10/09/17 08:56 10/09/17 09:00 Temperature 99.5 F 99.5 F 99.5 F Pulse Rate 85 85 86 Respiratory Rate 15 23 15 Blood Pressure 112/74 112/74 113/78 Pulse Oximetry 93 L 93 L 94 L 10/09/17 09:02 10/09/17 09:10 10/09/17 09:15 Temperature 99.5 F 99.5 F Pulse Rate 84 80 80 Respiratory Rate 15 15 15 Blood Pressure 105/71 105/71 Pulse Oximetry 94 L 94 L 94 L 10/09/17 09:22 10/09/17 09:30 10/09/17 09:35 Temperature 99.5 F 99.5 F 99.5 F Pulse Rate 79 79 69 Respiratory Rate 15 15 15 Blood Pressure 105/71 104/70 91/57 L Pulse Oximetry 94 L 95 94 L 10/09/17 09:45 10/09/17 10:00 10/09/17 11:00 Temperature 99.3 F 99.3 F 99.3 F Pulse Rate 69 92 H 83 Respiratory Rate 15 17 17 Blood Pressure 91/57 L 105/76 Pulse Oximetry 96 91 L 92 L 10/09/17 11:43 10/09/17 11:54 Temperature 99.1 F Pulse Rate 94 H Respiratory Rate 15 15 Blood Pressure 112/78 Pulse Oximetry 99 97 Intake & Output 10/08/17 10/09/17 10/09/17 18:59 06:59 18:59 Intake Total 1890 / 1890 1163 / 1163 400 / 400 Output Total 1050 / 1050 1500 / 1500 Balance 840 / 840 -337 / -337 400 / 400 Weight 74.5 kg Intake: IV 1300 / 1300 350 / 350 400 / 400 D5W Inj 1,000 ML @ 84 mls/hr IV 1000 / 1000 .CONT .[id number] [facility] Rx#:[id number] Zosyn 2.25 GM Premix 50 ML @ 50 / 50 100 / 100 50 / 50 100 mls/hr IV.SIG Q6H [facility] Rx#: [id number] KCl 20 mEq Premix Inj 20 meq In 100 / 100 100 ml @ 50 mls/hr IV.SIG Q2H PRN Rx#:[id number] Vancomycin Inj 1,000 MG In NS 250 / 250 Inj 250 ML @ 250 mls/hr IV.SIG ONCE ONE Rx#:[id number] fentaNYL 10 mcg/mL Premix Drip 250 / 250 250 / 250 2,500 mcg In 250 ml @ 50 MCG/HR 5 mls/hr IV.SIG TITRATE PRN Rx #:[id number] Tube Feeding 590 / 590 453 / 453 Water Bolus Amount 360 / 360 Intake (Blood Product) Amt 0 / 0 Plasma Thawed 5 Day Cp2d Unit 0 / 0 [id number] Plt Pheresis A Leukoreduced 0 / 0 Unit [id number] Plt Pheresis B Leukoreduced 0 / 0 Unit [id number] Output: Urine Amount (Catheter) 1050 / 1050 1500 / 1500 Indwelling Urethral Catheter 1050 / 1050 1500 / 1500 Other: Date of Last Bowel Movement 10/09/17 # Bowel Movements 1 # Incontinent Bowel Movements 1 Physical Exam: CONSTITUTIONAL/GENERAL: This is a frail, elderly male patient who appears disheveled TUBES/LINES/DRAINS: PIV 2; Alberto catheter; nasal cannula SKIN: Abrasions and bruising on upper and lower extremities bilaterally no wounds seen anteriorly. Skin temperature appropriate. Not diaphoretic. HEAD: Atraumatic. Normocephalic. EYES: Pupils equal and round. No scleral icterus. No injection or drainage. Fundi not examined. ENT: Hearing grossly normal. Nose without bleeding or purulent drainage. Dry mucous membranes NECK: Trachea midline. Supple, nontender. No palpable thyroid enlargement or nodularity. CARDIOVASCULAR: Regular rate and rhythm without murmurs, gallops, or rubs. No JVD. RESPIRATORY/CHEST: Scattered coarse breath sounds, decreased in bases bilaterally. No wheezing. GASTROINTESTINAL: Abdomen soft, non-tender, nondistended. No hepato-splenomegaly , or palpable masses. No guarding. Bowel sounds hypoactive GENITOURINARY: Without palpable bladder distension. Alberto catheter draining tea colored urine MUSCULOSKELETAL: Extremities without clubbing or cyanosis. 2+ peripheral pitting edema. Muscle wasting in all extremities; hectic appearance LYMPHATICS: No palpable cervical or supraclavicular adenopathy. NEUROLOGICAL: Awake; confused. Unable to follow commands. Garbled speech PSYCHIATRIC: No obvious anxiety/depression. No apparent hallucinations or other psychotic thought process. Diagnostic Tests Laboratory: Laboratory Results - last 72 hr 10/07/17 10/07/17 10/07/17 03:14 03:14 05:08 WBC 10.4 RBC 4.85 Hgb 15.1 Hct 46.6 MCV 96.0 MCH 31.1 MCHC 32.4 RDW 16.0 Plt Count 15 L* D MPV 10.9 Prelim Diff (Auto) Neut % (Auto) Lymph % (Auto) Sevier % (Auto) Eos % (Auto) Baso % (Auto) Neut # (Auto) Lymph # (Auto) [place] # (Auto) Eos # (Auto) Baso # (Auto) WBC Differential Seg Neuts % (Manual) Band Neuts % (Manual) Lymphocytes % (Manual) Monocytes % (Manual) Myelocytes % (Man) Promyelocytes % (Man) Abs Neuts (Manual) Nucleated RBCs/100 WBC Differential Comment Platelet Estimate Platelet Morphology Polychromasia Ovalocytes Keratocytes PT 22.9 H INR 2.3 APTT 39.7 H Fibrinogen 109 L Sodium 147 H Potassium 3.7 Chloride 111 H Carbon Dioxide 26.0 Anion Gap 10 BUN 74 H Creatinine 1.71 H Estimated GFR 39 L POC Glucose Random Glucose 113 H Lactic Acid Calcium 6.3 L* Prot Corrected Calcium 7.9 L Phosphorus 3.0 D Magnesium 2.5 Total Bilirubin 7.3 H AST 500 H ALT 1121 H Alkaline Phosphatase 17 L Ammonia Total Creatine Kinase Total Protein 4.0 L Albumin 2.1 L Random Vancomycin Blood Bank Comment Bld Prod Order Comment 10/07/17 10/07/17 10/07/17 13:30 13:30 18:24 WBC RBC Hgb Hct MCV MCH MCHC RDW Plt Count MPV Prelim Diff (Auto) Neut % (Auto) Lymph % (Auto) Sevier % (Auto) Eos % (Auto) Baso % (Auto) Neut # (Auto) Lymph # (Auto) [place] # (Auto) Eos # (Auto) Baso # (Auto) WBC Differential Seg Neuts % (Manual) Band Neuts % (Manual) Lymphocytes % (Manual) Monocytes % (Manual) Myelocytes % (Man) Promyelocytes % (Man) Abs Neuts (Manual) Nucleated RBCs/100 WBC Differential Comment Platelet Estimate Platelet Morphology Polychromasia Ovalocytes Keratocytes PT INR APTT Fibrinogen Sodium Potassium Chloride Carbon Dioxide Anion Gap BUN Creatinine Estimated GFR POC Glucose 101 Random Glucose Lactic Acid Calcium Prot Corrected Calcium Phosphorus Magnesium Total Bilirubin AST ALT Alkaline Phosphatase Ammonia Total Creatine Kinase Total Protein Albumin Random Vancomycin Blood Bank Comment Bld Prod Order Comment 10/08/17 10/08/1710/08/18 00:25 03:30 03:30 WBC 9.4 RBC 4.24 L Hgb 13.2 Hct 40.5 MCV 95.5 MCH 31.0 MCHC 32.5 RDW 16.1 Plt Count 40 L D MPV 8.9 Prelim Diff (Auto) Slide review pending Neut % (Auto) 83.4 H Lymph % (Auto) 10.5 Sevier % (Auto) 5.3 Eos % (Auto) 0.6 Baso % (Auto) 0.2 Neut # (Auto) 7.9 H Lymph # (Auto) 1.0 Sevier # (Auto) 0.5 Eos # (Auto) 0.1 Baso # (Auto) 0.0 WBC Differential Manual diff final Seg Neuts % (Manual) 83 H Band Neuts % (Manual) 3 Lymphocytes % (Manual) 8 L Monocytes % (Manual) 3 Myelocytes % (Man) 2 H Promyelocytes % (Man) 1 H Abs Neuts (Manual) 8.4 H Nucleated RBCs/100 WBC 1 H Differential Comment . Platelet Estimate Low L Platelet Morphology Normal Polychromasia 2.3 H Ovalocytes 1+ H Keratocytes Occ H PT INR APTT Fibrinogen Sodium 143 Potassium 3.7 Chloride 108 H Carbon Dioxide 24.6 Anion Gap 10 BUN 61 H Creatinine 1.51 H Estimated GFR 45 L POC Glucose 75 Random Glucose 88 Lactic Acid Calcium 6.9 L* Prot Corrected Calcium 8.6 Phosphorus 2.9 Magnesium 2.4 Total Bilirubin 12.0 H AST 527 H ALT 969 H Alkaline Phosphatase 19 L Ammonia Total Creatine Kinase 74 Total Protein 4.1 L Albumin 1.9 L Random Vancomycin 11.7 Blood Bank Comment Bld Prod Order Comment 10/08/17 10/08/17 10/08/17 03:30 03:30 03:30 WBC RBC Hgb Hct MCV MCH MCHC RDW Plt Count MPV Prelim Diff (Auto) Neut % (Auto) Lymph % (Auto) Sevier % (Auto) Eos % (Auto) Baso % (Auto) Neut # (Auto) Lymph # (Auto) [place] # (Auto) Eos # (Auto) Baso # (Auto) WBC Differential Seg Neuts % (Manual) Band Neuts % (Manual) Lymphocytes % (Manual) Monocytes % (Manual) Myelocytes % (Man) Promyelocytes % (Man) Abs Neuts (Manual) Nucleated RBCs/100 WBC Differential Comment Platelet Estimate Platelet Morphology Polychromasia Ovalocytes Keratocytes PT 17.4 H INR 1.7 APTT 36.4 H Fibrinogen 265 Sodium Potassium Chloride Carbon Dioxide Anion Gap BUN Creatinine Estimated GFR POC Glucose Random Glucose Lactic Acid 2.3 H Calcium Prot Corrected Calcium Phosphorus Magnesium Total Bilirubin AST ALT Alkaline Phosphatase Ammonia 17 Total Creatine Kinase Total Protein Albumin Random Vancomycin Blood Bank Comment d Prod Order Comment 10/08/17 10/08/17 10/08/17 06:33 11:35 14:40 WBC RBC Hgb Hct MCV MCH MCHC RDW Plt Count MPV Prelim Diff (Auto) Neut % (Auto) Lymph % (Auto) Sevier % (Auto) Eos % (Auto) Baso % (Auto) Neut # (Auto) Lymph # (Auto) [place] # (Auto) Eos # (Auto) Baso # (Auto) WBC Differential Seg Neuts % (Manual) Band Neuts % (Manual) Lymphocytes % (Manual) Monocytes % (Manual) Myelocytes % (Man) Promyelocytes % (Man) Abs Neuts (Manual) Nucleated RBCs/100 WBC Differential Comment Platelet Estimate Platelet Morphology Polychromasia Ovalocytes Keratocytes PT INR APTT Fibrinogen Sodium Potassium Chloride Carbon Dioxide Anion Gap BUN Creatinine Estimated GFR POC Glucose 84 112 H Random Glucose Lactic Acid Calcium Prot Corrected Calcium Phosphorus Magnesium Total Bilirubin AST ALT Alkaline Phosphatase Ammonia Less than 10 L Total Creatine Kinase Total Protein Albumin Random Vancomycin Blood Bank Comment d Prod Order Comment 10/08/17 10/09/17 10/09/17 17:43 00:20 05:20 WBC 9.5 RBC 4.33 L Hgb 13.6 Hct 41.1 MCV 95.0 MCH 31.4 MCHC 33.1 RDW 16.7 Plt Count 37 L MPV 10.7 Prelim Diff (Auto) Slide review pending Neut % (Auto) 85.6 H Lymph % (Auto) 6.7 L Sevier % (Auto) 6.1 Eos % (Auto) 1.4 Baso % (Auto) 0.2 Neut # (Auto) 8.2 H Lymph # (Auto) 0.6 L [place]vier # (Auto) 0.6 Eos # (Auto) 0.1 Baso # (Auto) 0.0 WBC Differential Manual diff final Seg Neuts % (Manual) 91 H Band Neuts % (Manual) 4 Lymphocytes % (Manual) 4 L Monocytes % (Manual) 1 Myelocytes % (Man) Promyelocytes % (Man) Abs Neuts (Manual) 9.0 H Nucleated RBCs/100 WBC 1 H Differential Comment . Platelet Estimate Low L Platelet Morphology Normal Polychromasia Ovalocytes 1+ H Keratocytes PT INR APTT Fibrinogen Sodium Potassium Chloride Carbon Dioxide Anion Gap BUN Creatinine Estimated GFR POC Glucose 112 H 114 H Random Glucose Lactic Acid Calcium Prot Corrected Calcium Phosphorus Magnesium Total Bilirubin AST ALT Alkaline Phosphatase Ammonia Total Creatine Kinase Total Protein Albumin Random Vancomycin Blood Bank Comment d Prod Order Comment 10/09/17 10/09/17 10/09/17 05:20 05:20 06:01 WBC RBC Hgb Hct MCV MCH MCHC RDW Plt Count MPV Prelim Diff (Auto) Neut % (Auto) Lymph % (Auto) Sevier % (Auto) Eos % (Auto) Baso % (Auto) Neut # (Auto) Lymph # (Auto) [place] # (Auto) Eos # (Auto) Baso # (Auto) WBC Differential Seg Neuts % (Manual) Band Neuts % (Manual) Lymphocytes % (Manual) Monocytes % (Manual) Myelocytes % (Man) Promyelocytes % (Man) Abs Neuts (Manual) Nucleated RBCs/100 WBC Differential Comment Platelet Estimate Platelet Morphology Polychromasia Ovalocytes Keratocytes PT 15.3 H INR 1.5 APTT Fibrinogen Sodium 144 Potassium 3.3 L Chloride 106 Carbon Dioxide 26.5 Anion Gap 12 BUN 52 H Creatinine 1.36 H Estimated GFR 50 L POC Glucose 119 H Random Glucose 92 Lactic Acid Calcium 7.0 L* Prot Corrected Calcium 8.6 Phosphorus 3.1 Magnesium 2.2 Total Bilirubin 14.1 H AST 446 H ALT 940 H Alkaline Phosphatase 28 L Ammonia Total Creatine Kinase Total Protein 4.2 L Albumin 1.8 L Random Vancomycin 15.9 Blood Bank Comment d Prod Order Comment 10/09/17 10/09/17 10/09/17 07:51 07:52 11:08 WBC RBC Hgb Hct MCV MCH MCHC RDW Plt Count MPV Prelim Diff (Auto) Neut % (Auto) Lymph % (Auto) Sevier % (Auto) Eos % (Auto) Baso % (Auto) Neut # (Auto) Lymph # (Auto) [place] # (Auto) Eos # (Auto) Baso # (Auto) WBC Differential Seg Neuts % (Manual) Band Neuts % (Manual) Lymphocytes % (Manual) Monocytes % (Manual) Myelocytes % (Man) Promyelocytes % (Man) Abs Neuts (Manual) Nucleated RBCs/100 WBC Differential Comment Platelet Estimate Platelet Morphology Polychromasia Ovalocytes Keratocytes PT INR APTT Fibrinogen Sodium Potassium Chloride Carbon Dioxide Anion Gap BUN Creatinine Estimated GFR POC Glucose 144 H Random Glucose Lactic Acid Calcium Prot Corrected Calcium Phosphorus Magnesium Total Bilirubin AST ALT Alkaline Phosphatase Ammonia Total Creatine Kinase Total Protein Albumin Random Vancomycin Blood Bank Comment Bld Prod Order Comment Result Diagrams: 10/09/17 05:20 10/09/17 05:20 Microbiology: Microbiology 10/03/17 18:40 Aerobic Blood Culture - Final Blood - Line No growth in 5 days Anaerobic Blood Culture - Final No growth in 5 days 10/03/17 18:45 Aerobic Blood Culture - Final Blood - Line No growth in 5 days Anaerobic Blood Culture - Final No growth in 5 days Procedures: 10/06/17: Intubation 10/06/17: Central line placement Assessment and Plan - Disease Oriented Problem List (1) Pleural effusion (2) JAVON (acute kidney injury) (3) NSTEMI (non-ST elevated myocardial infarction) (4) Electrolyte imbalance (5) Hypertension - Symptom Scale (1) Confusion 0-10 Scale: Unable to quantify (2) Dyspnea 0-10 Scale: Unable to quantify Pertinent Non-Medical Issues: Psychosocial: Patient is originally from [place], [place]. He moved to [place], [place] in 1991. He was twice, twice. Patient has 2 children from his first marriage (Kayy Gould and Pablo), and one child (Paul) from his second marriage. He reportedly has had no contact with his children. His parents are . He has 5 brothers and one sister but apparently has not had any contact with him for many years. Patient graduated from high school; he had a variety of different jobs. Spiritual: Patient is unable to provide this information due to his altered mentation/confusion. Legal: Accurate in's requested, awaiting results Ethical issues impacting care: No known ethical issues impacting care at this time Important Contacts: Madina Acevedo, friend: [phone] Prognosis: Patient is a severely debilitated 82-year-old male with multiorgan failure and severe sepsis. Patient is critically ill and at very high risk for further decompensation and . Prognosis is very poor. Code Status: Full Code Plan: = FULL CODE = Decision making: [employer] and google searches did not identify any potential family members. In accordance with the [place] statutes, it would be appropriated to proceed with patient's friend (Madina Acevedo) as the HCP decision maker. Healthcare proxy designation and acceptance form and notarized healthcare proxy of the dated were placed in the patient's chart and faxed to HIM to be scanned into the patient's EMR = GOALS REMAIN AGGRESSIVE. Friend/HCP (Madina Acevedo) states "I think he still got something left; he's not ready to ." She is familiar with the process of withdrawing artificial life support with her father's girlfriend; she states she is not afraid to make those decisions if the patient continues to decline but only when she is certain it is the right thing to do. She is familiar with the process of withdrawing artificial life support with her father's girlfriend ; she states she is not afraid to make those decisions but only when she is certain it is the right thing to do. = Symptom management: ++ Dyspnea: Respirations unlabored on exam. CT chest revealed large right and small left pleural effusion. No evidence of pneumothorax. Possible pneumonia. Patient is at high risk for further decompensation. CXR on 2017 showed worsening right greater than left bibasilar consolidation and small pleural effusions. Plan for thoracentesis today 10/09/2017 ++ Confusion: Acute encephalopathy likely multi-factorial. Contributing factors may include metabolic imbalance, sepsis, UTI, pain, constipation etc. Patient is sedated with fentanyl. CT of the brain on 10/06/17 showed no evidence of acute infarct, hemorrhage, mass or edema. Neurology was consulted because of patient's ongoing encephalopathy. Plan for EEG and MRI of the brain later today. = Palliative care will continue to follow this patient throughout his hospitalization to establish trust, assist with symptom management and clarification of medical treatment goals. Attestation Attestation: To help prompt me to consider important information that might be impacting today's encounter and assessment, information from prior notes written by myself or my colleagues may have been "brought forward" into today's note. My signature on this note, however, is an attestation that I personally performed the exam, history, and/or decision-making noted today, and, unless otherwise indicated, the interactions with patient, family, and staff as well as the review of records all occurred today. I also attest that the listed assessment and stated plan reflect my best clinical judgment today based on the combination of historical information, prior notes, and today's exam/ interactions. When time spent is documented, it refers only to time spent today by the signer, or if indicated, combined time spent today by collaborating physician/nurse practitioner.
[2017-10-09] MEDS ORDERED: Propofol Inj 500 MG/50 ML Vial ONE (13:23)
--- NOTE | 2017-10-09 14:38 | XR ---
EXAM DATE: 10/09/2017 2:14 PM EDT AGE/SEX: 82 years / Male INDICATIONS: Post right thoracentesis. CLINICAL DATA: This is the patient's subsequent encounter. Patient reports that signs and symptoms h ave been present for 1 day and indicates a pain score of Nonresponsive. MEDICAL/SURGICAL HISTORY: Non-responsive. Non-responsive. COMPARISON: C, CHEST 1V SINGLE AP, 10/08/2017. . FINDINGS: Endotracheal tube, nasogastric tube and right neck central line are stable in good position. Aeration has improved slightly with decrease in confluence of basilar infiltrates and significant decrease in right effusion. Small bilateral effusions persist. Cardiac contours are grossly stable. CONCLUSION: Improving aeration. No evidence of pneumothorax. Electronically signed by: Mario Pedraza MD 10/09/2017 2:36 PM EDT
[2017-10-09] MEDS: Vancomycin Inj 1,250 MG in Sodium Chlor 0.9% Inj 250 ML IV.SIG SCH (15:54)
[2017-10-09] MEDS: Piperacil/Tazo 3.375 GM Premix 50 ML IV.SIG SCH ×2 (15:55→21:33)
[2017-10-09 16:48] LABS: Lymphocytes,Pleural Fluid 30 %; Mesothelial,Pleural Fluid 23 %; Monocytes,Pleural Fluid 7 %; Neutrophils,Pleural Fluid 37 %
[2017-10-09 16:52] LABS: RBC,Pleural Fluid 1859 /mm3 (0-0)
[2017-10-09] MEDS ORDERED: Gadobutrol PF 7.5 MMOL/7.5 ML Vial (for RAD) IV.SIG ONE (17:53)
--- NOTE | 2017-10-09 18:23 | MR ---
EXAM DATE: 10/09/2017 6:10 PM EDT AGE/SEX: 82 years / Male INDICATIONS: Altered mental status. CLINICAL DATA: This is the patient's subsequent encounter. Patient reports that signs and symptoms h ave been present for 4 - 6 days and indicates a pain score of Nonresponsive. MEDICAL/SURGICAL HISTORY: Non-responsive. Non-responsive. COMPARISON: . TECHNIQUE: Multiplanar, multisequence examination of the brain was performed without and with 7 ml Ga davist (gadobutrol) contrast as a single exam dose. FINDINGS: Cerebrum: Mild cerebral atrophy is noted. Multiple old tiny lacunar infarcts are noted within the bi lateral basal ganglia. No evidence of midline shift, mass lesion, hemorrhage or acute infarction. No extraaxial fluid collections are seen. The pituitary gland and suprasellar cistern are normal in co nfiguration. White Matter: Minimal small vessel ischemic changes are noted within the periventricular and subcort ical white matter bilaterally. Posterior Fossa: The cerebellum and brainstem are intact. The 4th ventricle is midline. The cerebel lopontine angle is unremarkable. The cerebellar tonsils are normal in position. Diffusion Imaging: No focal areas of restricted diffusion are seen. No evidence of acute infarction . Extracranial: The visualized portions of the orbits and paranasal sinuses are unremarkable. Post Contrast: No abnormal areas of parenchymal or dural enhancement. No evidence of blood-brain ba rrier breakdown. CONCLUSION: 1. No acute infarct, acute hemorrhage, midline shift or extra-axial fluid collections. 2. Mild cerebral atrophy. 3. 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 4. Minimal small vessel ischemic changes within the periventricular and subcortical white matter angelita aterally. Electronically signed by: Anjum Nicole MD 10/09/2017 6:21 PM EDT
[2017-10-10] MEDS: Insulin NovoLOG Aspart Correctional Sugar Inj SQ SCH ×4 (00:29→17:45)
[2017-10-10] MEDS: Piperacil/Tazo 3.375 GM Premix 50 ML IV.SIG SCH ×4 (02:30→21:15)
[2017-10-10 06:41] LABS: INR 1.4 Ratio; Prothrombin Time 13.8 sec (9.8-11.6)
[2017-10-10 06:45] LABS: Baso % (Auto) 0.1 % (0.0-2.0); Eos % (Auto) 0.2 % (0.0-4.0); Hematocrit 40.2 % (39.0-51.0); Hemoglobin 13.4 gm/dL (13.0-17.0); Lymph # (Auto) 0.4 th/mm3 (1.0-4.8); Lymph % (Auto) 3.9 % (9.0-44.0); Mean Corpuscular HGB Conc 33.3 % (32.0-36.0); Mean Corpuscular Hemoglobin 31.6 pg (27.0-34.0); Mean Corpuscular Volume 94.9 fL (80.0-100.0); Mean Platelet Volume 10.1 fL (7.0-11.0); Mono # (Auto) 0.7 th/mm3 (0.0-0.9); Mono % (Auto) 7.3 % (0.0-8.0); Neut # (Auto) 8.8 th/mm3 (1.8-7.7); Neut % (Auto) 88.5 % (16.0-70.0); Platelet Count 86 th/mm3 (150-450); Red Blood Count 4.24 mil/mm3 (4.50-5.90); Red Cell Distribution Width 17.4 % (11.6-17.2); White Blood Count 9.9 th/mm3 (4.0-11.0)
[2017-10-10 07:03] LABS: Albumin 2.1 g/dL (3.4-5.0); Calcium 7.4 mg/dL (8.5-10.1); Carbon Dioxide 28.2 meq/L (21.0-32.0); Magnesium 2.6 mg/dL (1.5-2.5); Phosphorus 4.2 mg/dL (2.5-4.9); Total Protein 5.2 g/dL (6.4-8.2)
[2017-10-10] MEDS: Hypromellose 0.3% Opth Gel 10 GM Bottle EACH EYE SCH ×2 (08:13→21:16)
[2017-10-10] MEDS: Senna/Docusate Sodium 8.6/50 MG Tablet PO SCH ×2 (08:13→21:16)
[2017-10-10 08:22] LABS: Acanthocytes Occ; Ovalocytes 1+; Platelet Morphology Normal (Normal)
--- NOTE | 2017-10-10 08:28 | P.PNCC ---
Subjective Subjective Remarks/Hospital Course: Patient is an elderly male with unknown past medical history who was found on the floor of his apartment with door open. Apparently neighbors checked on him and found him unresponsive on the floor. Patient was brought to the emergency department and underwent extensive workup to rule out trauma. CT of the head showed moderate to severe atrophy, CT of the chest showed moderate right-sided and small left effusion. 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 X-ray of his right elbow showed a possible olecranon spur discontinuity. Multiple lab abnormalities white count was 12.8 with 87% neutrophils platelet count 60 INR was 2.3. UA showed evidence of UTI, patient received a dose of cefepime for severe sepsis. Also his troponin was elevated at 6.8, lactic acid was 8.3 BUN 67 creatinine 2.71. Patient received 2 L normal saline boluses. Dr. Jaimes from cardiology was contacted for an STEMI. Due to poor mentation and multiorgan failure patient was deemed not a candidate for cardiac catheterization. Cannot use aspirin or heparin due to platelet count of 60,000 INR of 2.3. Other abnormal labs included transaminitis and elevated CPK. I evaluated the patient in the emergency department. He is severely encephalopathic appears critical, tachypneic but protecting airway. He is not able to say his name or mouth any words. He continues to move his head side to side but not communicative. I have added additional 2 L normal saline bolus, give 2 A of bicarb. Check ABG. Broad-spectrum antibiotics with vancomycin 1 dose and renally dosed Zosyn. Patient is very critically ill and has multiorgan failure, overall prognosis appears very poor. 10/04: This morning patient is not on any pressors. He is awake, agitated at times requiring restraints. He is saying incomprehensible words. T-max of 99.1. Urine output is minimal. 10/05: No events over the night. T-max of 98.4. Patient's mental status remains unchanged. Lethargic but easily arousable, not following any commands, saying incomprehensible words. Urine output of 525 mL's over the last 24 hours. Patient identified as Pablo Slater, 82-year-old gentleman. Still no family contact yet. 10/06: Over the night, patient developed worsening hypoxia with periods of apnea therefore he was intubated and now he is mechanically ventilated. This morning he is on no sedation, thrashing in bed, not following any commands. T-max of 99.9. Urine output is low, 200 mL's over the last 24 hours. Low blood pressure over the night noted, 1000 mL's of LR bolus given map remains borderline low normal. Morning chest x-ray reviewed, bibasilar infiltrates, right greater than left. ET tube is in good position. ROS -unobtainable due to patient's mental status SUBJECTIVE: 10/07: Low-grade temperatures overnight. Remains on norepinephrine drip at 2 mcg /min. Arousable on fentanyl drip at 100 mg an hour. No bowel movement. 10/08 Patient remains intubated and sedated with Fentanyl infusion. Afebrile. On Levophed 1 tu. Renal function is improving with Cr: 1.51 from 1.71. 10/09 No events overnight intubated and sedated with Fentanyl infusion on Levophed 2 mics. T:99.7. 10/10 Patient remains intubated and sedated with Fentanyl drip. s/p right sided thoracentesis yesterday with removal 1.5L (transudative fluid) On Levophed 2 mics. Objective Vital Signs / I&O: Vital Signs 10/09/17 08:30 10/09/17 08:45 10/09/17 08:56 Temperature 99.3 F 99.5 F 99.5 F Pulse Rate 92 H 85 85 Respiratory Rate 15 15 23 Blood Pressure 125/83 112/74 112/74 Pulse Oximetry 92 L 93 L 93 L 10/09/17 09:00 10/09/17 09:02 10/09/17 09:10 Temperature 99.5 F 99.5 F Pulse Rate 86 84 80 Respiratory Rate 15 15 15 Blood Pressure 113/78 105/71 Pulse Oximetry 94 L 94 L 94 L 10/09/17 09:15 10/09/17 09:22 10/09/17 09:30 Temperature 99.5 F 99.5 F 99.5 F Pulse Rate 80 79 79 Respiratory Rate 15 15 15 Blood Pressure 105/71 105/71 104/70 Pulse Oximetry 94 L 94 L 95 10/09/17 09:35 10/09/17 09:45 10/09/17 10:00 Temperature 99.5 F 99.3 F 99.3 F Pulse Rate 69 69 92 H Respiratory Rate 15 15 17 Blood Pressure 91/57 L 91/57 L Pulse Oximetry 94 L 96 91 L 10/09/17 11:00 10/09/17 11:43 10/09/17 11:54 Temperature 99.3 F 99.1 F Pulse Rate 83 94 H Respiratory Rate 17 15 15 Blood Pressure 105/76 112/78 Pulse Oximetry 92 L 99 97 10/09/17 12:00 10/09/17 12:15 10/09/17 12:30 Temperature 99.1 F 99.1 F 99.0 F Pulse Rate 81 78 75 Respiratory Rate 15 15 15 Blood Pressure 101/65 99/64 L 99/64 L Pulse Oximetry 97 97 93 L 10/09/17 12:45 10/09/17 13:00 10/09/17 13:15 Temperature 99.0 F 99.0 F 99.0 F Pulse Rate 75 74 84 Respiratory Rate 15 15 15 Blood Pressure 102/64 106/66 102/66 Pulse Oximetry 93 L 94 L 93 L 10/09/17 13:31 10/09/17 13:45 10/09/17 13:49 Temperature 99.1 F 99.0 F 99.1 F Pulse Rate 101 H 86 88 Respiratory Rate 14 15 15 Blood Pressure 90/53 L 65/46 L 73/50 L Pulse Oximetry 96 96 10/09/17 13:51 10/09/17 13:54 10/09/17 13:57 Temperature 99.1 F 99.1 F 99.1 F Pulse Rate 87 91 H 87 Respiratory Rate 16 15 15 Blood Pressure 85/54 L 89/64 L 93/61 L Pulse Oximetry 96 96 94 L 10/09/17 14:00 10/09/17 14:04 10/09/17 14:52 Temperature 99.1 F 99.1 F Pulse Rate 88 102 H 97 H Respiratory Rate 17 20 15 Blood Pressure 91/50 L Pulse Oximetry 92 L 92 L 10/09/17 15:00 10/09/17 15:03 10/09/17 15:06 Temperature 99.1 F 99.1 F 99.1 F Pulse Rate 94 H 94 H 92 H Respiratory Rate 15 15 15 Blood Pressure 107/59 L 105/65 106/64 Pulse Oximetry 88 L 87 L 87 L 10/09/17 15:09 10/09/17 15:12 10/09/17 15:15 Temperature 99.1 F 99.1 F 99.1 F Pulse Rate 91 H 92 H 91 H Respiratory Rate 15 15 15 Blood Pressure 104/61 97/64 L 88/66 L Pulse Oximetry 86 L 86 L 85 L 10/09/17 15:19 10/09/17 15:21 10/09/17 15:24 Temperature 99.3 F 99.1 F 99.3 F Pulse Rate 92 H 91 H 90 Respiratory Rate 15 15 15 Blood Pressure 100/66 101/67 97/61 L Pulse Oximetry 85 L 85 L 86 L 10/09/17 15:28 10/09/17 15:31 10/09/17 15:45 Temperature 99.3 F 99.3 F 99.1 F Pulse Rate 109 H 114 H 118 H Respiratory Rate 21 17 15 Blood Pressure 91/67 L 114/69 108/72 Pulse Oximetry 91 L 89 L 10/09/17 16:00 10/09/17 17:00 10/09/17 17:01 Temperature 99.1 F 99.3 F 99.3 F Pulse Rate 102 H 103 H 106 H Respiratory Rate 15 19 15 Blood Pressure 107/74 115/79 Pulse Oximetry 98 10/09/17 17:14 10/09/17 18:00 10/09/17 18:24 Temperature 99.3 F Pulse Rate 114 H 110 H Respiratory Rate 24 22 Blood Pressure 130/75 118/77 Pulse Oximetry 95 100 10/09/17 19:00 10/09/17 20:00 10/09/17 20:26 Temperature Pulse Rate 89 86 Respiratory Rate 15 15 16 Blood Pressure 106/72 104/72 Pulse Oximetry 97 98 90 L 10/09/17 20:28 10/09/17 21:00 10/09/17 22:00 Temperature Pulse Rate 99 H 98 H 87 Respiratory Rate 16 15 15 Blood Pressure 109/76 116/77 Pulse Oximetry 97 97 10/09/17 23:00 10/10/17 00:00 10/10/17 00:30 Temperature Pulse Rate 87 80 Respiratory Rate 18 15 16 Blood Pressure 112/62 97/63 L Pulse Oximetry 97 97 96 10/10/17 01:00 10/10/17 01:30 10/10/17 01:45 Temperature 97.5 F L 97.5 F L Pulse Rate 80 79 79 Respiratory Rate 15 15 15 Blood Pressure 100/64 98/69 L 99/69 L Pulse Oximetry 97 100 100 10/10/17 02:00 10/10/17 02:15 10/10/17 02:30 Temperature 97.5 F L 97.5 F L 97.7 F Pulse Rate 79 80 80 Respiratory Rate 15 15 16 Blood Pressure 102/72 102/70 99/68 L Pulse Oximetry 100 100 100 10/10/17 02:45 10/10/17 03:00 10/10/17 03:15 Temperature 97.7 F 97.7 F 97.7 F Pulse Rate 79 79 79 Respiratory Rate 15 15 16 Blood Pressure 99/67 L 99/67 L 99/69 L Pulse Oximetry 100 100 100 10/10/17 03:30 10/10/17 03:44 10/10/17 03:45 Temperature 97.7 F 97.7 F Pulse Rate 78 79 78 Respiratory Rate 16 17 18 Blood Pressure 99/67 L 97/70 L Pulse Oximetry 100 100 10/10/17 04:00 10/10/17 04:01 10/10/17 04:08 Temperature 97.9 F 97.9 F Pulse Rate 105 H 106 H Respiratory Rate 19 17 18 Blood Pressure 119/79 Pulse Oximetry 100 99 99 10/10/17 04:15 10/10/17 04:30 10/10/17 04:45 Temperature 97.9 F 97.9 F 98.1 F Pulse Rate 107 H 93 H 82 Respiratory Rate 15 15 15 Blood Pressure 116/78 106/70 102/69 Pulse Oximetry 94 L 93 L 93 L 10/10/17 05:00 10/10/17 05:01 10/10/17 05:15 Temperature 98.1 F 98.1 F 98.1 F Pulse Rate 91 H 95 H 92 H Respiratory Rate 16 19 15 Blood Pressure 121/59 L 106/69 Pulse Oximetry 90 L 91 L 85 L 10/10/17 05:30 10/10/17 05:45 10/10/17 06:00 Temperature 98.1 F 98.1 F 98.2 F Pulse Rate 80 85 80 Respiratory Rate 15 15 15 Blood Pressure 103/69 104/69 100/67 Pulse Oximetry 83 L 10/10/17 06:15 10/10/17 06:30 10/10/17 06:45 Temperature 98.2 F 98.2 F 98.2 F Pulse Rate 79 79 79 Respiratory Rate 15 15 15 Blood Pressure 97/67 L 97/66 L 96/67 L Pulse Oximetry 10/10/17 07:00 10/10/17 07:15 Temperature 98.4 F 98.4 F Pulse Rate 80 88 Respiratory Rate 20 17 Blood Pressure 97/67 L 103/73 Pulse Oximetry 96 Intake & Output 10/09/17 10/10/17 10/10/17 18:59 06:59 18:59 Intake Total 1226 / 1226 1271 / 1271 50 / 50 Output Total 2700 / 2700 500 / 500 Balance -1474 / -1474 771 / 771 50 / 50 Weight 73.9 kg Intake: IV 450 / 450 300 / 300 50 / 50 Levophed-Dextrose 4 mg/250 ml 250 / 250 Drip 4 mg In 250 ml @ 2 MCG/MIN 7.5 mls/hr IV.SIG TITRATE PRN Rx#:[id number] Zosyn 2.25 GM Premix 50 ML @ 50 / 50 100 mls/hr IV.SIG Q6H JIGNA Rx#: [id number] Zosyn 3.375 GM Premix 50 ML @ 50 / 50 50 / 50 50 / 50 100 mls/hr IV.SIG Q6H JIGNA Rx#: [id number] KCl 20 mEq Premix Inj 20 meq In 100 / 100 100 ml @ 50 mls/hr IV.SIG Q2H PRN Rx#:[id number] fentaNYL 10 mcg/mL Premix Drip 250 / 250 2,500 mcg In 250 ml @ 50 MCG/HR 5 mls/hr IV.SIG TITRATE PRN Rx #:[id number] Oral 0 / 0 Tube Feeding 536 / 536 611 / 611 Water Bolus Amount 240 / 240 360 / 360 Intake (Blood Product) Amt 0 / 0 Plasma Thawed 5 Day Cp2d Unit 0 / 0 [id number] Plt Pheresis A Leukoreduced 0 / 0 Unit [id number] Plt Pheresis B Leukoreduced 0 / 0 Unit [id number] Output: Pleural Fluid 1500 / 1500 Urine Amount (Catheter) 1200 / 1200 500 / 500 Indwelling Urethral Catheter 1200 / 1200 500 / 500 Other: Date of Last Bowel Movement 10/09/17 # Bowel Movements 0 0 Result Diagrams: 10/10/17 05:15 10/10/17 05:15 Other Results: Laboratory Results - last 12 hr 10/10/17 10/10/17 10/10/17 00:26 05:15 05:15 WBC 9.9 RBC 4.24 L Hgb 13.4 Hct 40.2 MCV 94.9 MCH 31.6 MCHC 33.3 RDW 17.4 H Plt Count 86 L D MPV 10.1 Prelim Diff (Auto) Slide review pending Neut % (Auto) 88.5 H Lymph % (Auto) 3.9 L Crane % (Auto) 7.3 Eos % (Auto) 0.2 Baso % (Auto) 0.1 Neut # (Auto) 8.8 H Lymph # (Auto) 0.4 L Crane # (Auto) 0.7 Eos # (Auto) 0.0 Baso # (Auto) 0.0 Differential Comment . PT INR Sodium 145 Potassium 4.0 Chloride 106 Carbon Dioxide 28.2 Anion Gap 11 BUN 62 H Creatinine 1.58 H Estimated GFR 42 L POC Glucose 116 H Random Glucose 107 H Calcium 7.4 L* Prot Corrected Calcium 8.5 Phosphorus 4.2 D Magnesium 2.6 H Total Bilirubin 14.4 H AST 243 H ALT 699 H Alkaline Phosphatase 35 L Total Protein 5.2 L D Albumin 2.1 L 10/10/17 10/10/17 05:15 05:36 WBC RBC Hgb Hct MCV MCH MCHC RDW Plt Count MPV Prelim Diff (Auto) Neut % (Auto) Lymph % (Auto) Crane % (Auto) Eos % (Auto) Baso % (Auto) Neut # (Auto) Lymph # (Auto) Crane # (Auto) Eos # (Auto) Baso # (Auto) Differential Comment PT 13.8 H INR 1.4 Sodium Potassium Chloride Carbon Dioxide Anion Gap BUN Creatinine Estimated GFR POC Glucose 117 H Random Glucose Calcium Prot Corrected Calcium Phosphorus Magnesium Total Bilirubin AST ALT Alkaline Phosphatase Total Protein Albumin Imaging: Elbow X-Ray 10/03/17 18:31 CONCLUSION: There is discontinuity of the tip of a small olecranon spur without soft tissue swelling. Cannot exclude a fracture. Recommend correlation with clinical exam for point tenderness in this area. Hip X-Ray 10/03/17 18:31 CONCLUSION: No fracture seen. Lumbar Spine X-Ray 10/03/17 18:31 CONCLUSION: 60% anterior compression fracture of L2. No retropulsed fragments seen. Cervical Spine CT 10/03/17 18:35 CONCLUSION: 1. No evidence of compression deformity, fracture, or spondylolisthesis. 2. Advanced hypertrophic degenerative changes in the facet joints, more severe on the right. Abdomen/Pelvis CT 10/03/17 18:38 CONCLUSION: 1. Bilateral pleural effusions, right greater than left. 2. Nonobstructing 4 mm stone in the right renal collecting system. 3. 3.7 cm infrarenal abdominal aortic aneurysm. 4. Small fat-containing left inguinal hernia. Chest CT 10/03/17 18:38 CONCLUSION: 1. Large right and small left pleural effusion. 2. No fracture seen. No evidence of pneumothorax. Liver Ultrasound 10/04/17 00:00 CONCLUSION: 1. No evidence of gallstones or biliary tract obstruction. 2. There is a cyst along the upper pole the right kidney measuring 3 cm. 3. Bilateral pleural effusions. Head CT 10/06/17 00:00 CONCLUSION: 1. Stable evaluation the brain. 2. No evidence of acute infarct, hemorrhage, mass or edema. . Head MRI 10/09/17 00:00 CONCLUSION: 1. No acute infarct, acute hemorrhage, midline shift or extra-axial fluid collections. 2. Mild cerebral atrophy. 3. 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 4. Minimal small vessel ischemic changes within the periventricular and subcortical white matter bilaterally. Chest X-Ray 10/09/17 13:57 CONCLUSION: Improving aeration. No evidence of pneumothorax. Objective Remarks: GENERAL: Elderly gentleman, poorly nourished, very deconditioned, ill-appearing , intubated HEENT: Pupils are equal and reactive. Sclerae anicteric. Neck supple without rigidity. Orally intubated. Neck veins are nondistended. No carotid bruit. CHEST: Scattered coarse breath sounds bilateral, decreased breath sounds at bases but overall improved air entry. No wheezes. CARDIOVASCULAR: Regular heart sounds, without murmurs. ABDOMEN: Soft, nontender, nondistended. Bowel sounds are decreased. No hepatomegaly or splenomegaly appreciated. MUSCULOSKELETAL: Remains tepid. 2+ peripheral pitting edema. Pulses are present. Dusky discoloration of the plantar surface of the toes. NEUROLOGICAL: Patient is intubated, lethargic, arousable by opening eyes and withdrawing to bilateral upper and lower extremities but he does not follow any commands. Grimaces to pain. Pupils remain equal and reactive. Assessment and Plan - Assessment and Plan Plan: 1. Acute hypoxic respiratory failure -now intubated and mechanically ventilated 2. Acute encephalopathy, likely toxic metabolic -probably some degree of dementia at base, no improvement so far 3. Acute TN -followed by cardiology 4. Severe sepsis 5. Lactic/metabolic acidosis -lactic acid remains elevated despite adequate fluid resuscitation, likely in the setting of liver insufficiency 6. Bibasilar pneumonia 7. Transaminitis -liver enzymes are slowly trending down 8. JAVON -creatinine remains elevated and urine output remains low 9. Hypernatremia -slowly improving 10. Coagulopathy with thrombocytopenia -worsening 11. L2 compression deformity/acuity unknown 12. Moderate to large right-sided effusion with small left pleural effusion Plan Neuro: On Fentanyl and infusion for sedation. Daily sedation vacation. 10/06 CT brain: No evidence of acute infarct, hemorrhage, mass or edema. neuro is following- Dr. Benites MRI brain: No acute infarct, acute hemorrhage, midline shift or extra- axial fluid collections. Mild cerebral atrophy. 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 Minimal small vessel ischemic changes within the periventricular and subcortical white matter bilaterally. Pulm: Continue with vent support keep sats >92% Bronchodilators, ICU vent bundle. s/p right sided thoracentesis with removal 1.5L ( Transudative fluid) CV: Monitor HR and BP kep MAP>65mmHg, on Levophed 2 tu Lactic acid trending down 2.3 10/07 from 5.9 No aspirin or heparin due to worsening thrombocytopenia and coagulopathy No statin due to elevated liver enzymes Follow up on echo results : Monitor renal function, I/O's, electrolytes replacement as needed. Cr: 1.58 today from 1.36 ID: Continue abx(Vanco and piperacillin/tazobactam). BC, urine cx 10/03: No growth, sputum cx pending Followup on fluid cx GI: On Prevacid 30mg daily. Monitor LFT's, Liver ultrasound reviewed -no gallstones or biliary tract obstruction. On Glucerna 1.5 with goal rate 50ml/hr Heme: Monitor CBC, Coags, s/p Transfuse 1 packed leuko-reduced platelets, and 1 cryo due to worsening thrombocytopenia on 10/07 s/p Transfuse 1u FFP and 2u PLT yesterday for thoracentesis Endo: SSI for glycemic control DVT prophylaxis with SCDs and GI prophylaxis with lansoprazole Palliative care is following Lines: Right IJ CVP 10/06 Level 3
--- NOTE | 2017-10-10 13:17 | P.PNPAL ---
Reason for Visit Reason for visit: a. To assist with evaluation and management of symptoms including: Confusion, dyspnea b. To assist medical decision maker(s) with: better understanding of current medical conditions; weighing benefits/burdens of medical treatment options; making medical treatment decisions. Subjective Subjective/Interval History: This is an elderly male patient who presented to [facility] on 10/03/2017 as a Mario Schmidt after he was found in his apartment, unresponsive. He was subsequently admitted to the intensive care unit with multi organ failure, overall prognosis appeared poor. Overnight on 10/06/2017 patient developed worsening hypoxia with periods of apnea requiring intubation. Clinical data: * Afebrile. Pulse 103, respirations 26, BP 116/72 * WBC: 9.9, hemoglobin 13.4, hematocrit 40.2, platelets 86, neutrophils 88.5% * PT: 13.8, INR 1.4 * Sodium: 145, potassium 4.0, chloride 106, carbon dioxide 28.2, glucose 107, calcium 7.4, prot corrected calcium 8.4, phosphorus 4.2, magnesium 2.6 * BUN: 62, creatinine 1.58, GFR 42 * Total bilirubin: 14.4, AST 243, ALT 699, alkaline phosphatase 35 * Total protein: 5.2, albumin 2.1 * Negative urine and blood culture from 10/03/2017 Patient is intubated on mechanical ventilation and sedated with fentanyl drip. Tolerating CPAP trails this morning. Requiring ongoing pressor support on Levophed 2 mics. Follow-up chest x-ray on 10/09/2017 showed improved aeration and no evidence of pneumothorax status post thoracentesis with 1.5 L transudative fluid removed. Cultures pending CT of the brain on 10/06/17 showed no evidence of acute infarct, hemorrhage, mass or edema. Neurology was consulted because of patient's ongoing encephalopathy. MRI of the brain on 10/09/2017 showed no acute infarct, acute hemorrhage, midline shift or extra-axial fluid collections. Mild cerebral atrophy. 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 Minimal small vessel ischemic changes within the periventricular and subcortical white matter bilaterally. EEG pending [employer] and [facility] searches did not identify any potential family members. In accordance with the [place] statutes, it would be appropriated to proceed with patient's friend (Madina Acevedo) as the HCP decision maker. Healthcare proxy designation and acceptance form and notarized healthcare proxy of the dated were placed in the patient's chart and faxed to HIM to be scanned into the patient's EMR. Advance Directives Documented care wishes:: No known documented care wishes were completed. Objective Vital Signs: Vital Signs 10/09/17 13:15 10/09/17 13:31 10/09/17 13:45 Temperature 99.0 F 99.1 F 99.0 F Pulse Rate 84 101 H 86 Respiratory Rate 15 14 15 Blood Pressure 102/66 90/53 L 65/46 L Pulse Oximetry 93 L 96 10/09/17 13:49 10/09/17 13:51 10/09/17 13:54 Temperature 99.1 F 99.1 F 99.1 F Pulse Rate 88 87 91 H Respiratory Rate 15 16 15 Blood Pressure 73/50 L 85/54 L 89/64 L Pulse Oximetry 96 96 96 10/09/17 13:57 10/09/17 14:00 10/09/17 14:04 Temperature 99.1 F 99.1 F 99.1 F Pulse Rate 87 88 102 H Respiratory Rate 15 17 20 Blood Pressure 93/61 L 91/50 L Pulse Oximetry 94 L 92 L 10/09/17 14:52 10/09/17 15:00 10/09/17 15:03 Temperature 99.1 F 99.1 F Pulse Rate 97 H 94 H 94 H Respiratory Rate 15 15 15 Blood Pressure 107/59 L 105/65 Pulse Oximetry 92 L 88 L 87 L 10/09/17 15:06 10/09/17 15:09 10/09/17 15:12 Temperature 99.1 F 99.1 F 99.1 F Pulse Rate 92 H 91 H 92 H Respiratory Rate 15 15 15 Blood Pressure 106/64 104/61 97/64 L Pulse Oximetry 87 L 86 L 86 L 10/09/17 15:15 10/09/17 15:19 10/09/17 15:21 Temperature 99.1 F 99.3 F 99.1 F Pulse Rate 91 H 92 H 91 H Respiratory Rate 15 15 15 Blood Pressure 88/66 L 100/66 101/67 Pulse Oximetry 85 L 85 L 85 L 10/09/17 15:24 10/09/17 15:28 10/09/17 15:31 Temperature 99.3 F 99.3 F 99.3 F Pulse Rate 90 109 H 114 H Respiratory Rate 15 21 17 Blood Pressure 97/61 L 91/67 L 114/69 Pulse Oximetry 86 L 91 L 89 L 10/09/17 15:45 10/09/17 16:00 10/09/17 17:00 Temperature 99.1 F 99.1 F 99.3 F Pulse Rate 118 H 102 H 103 H Respiratory Rate 15 15 19 Blood Pressure 108/72 107/74 Pulse Oximetry 98 10/09/17 17:01 10/09/17 17:14 10/09/17 18:00 Temperature 99.3 F 99.3 F Pulse Rate 106 H 114 H 110 H Respiratory Rate 15 24 22 Blood Pressure 115/79 130/75 118/77 Pulse Oximetry 95 10/09/17 18:24 10/09/17 19:00 10/09/17 20:00 Temperature Pulse Rate 89 86 Respiratory Rate 15 15 Blood Pressure 106/72 104/72 Pulse Oximetry 100 97 98 10/09/17 20:26 10/09/17 20:28 10/09/17 21:00 Temperature Pulse Rate 99 H 98 H Respiratory Rate 16 16 15 Blood Pressure 109/76 Pulse Oximetry 90 L 97 10/09/17 22:00 10/09/17 23:00 10/10/17 00:00 Temperature Pulse Rate 87 87 80 Respiratory Rate 15 18 15 Blood Pressure 116/77 112/62 97/63 L Pulse Oximetry 97 97 97 10/10/17 00:30 10/10/17 01:00 10/10/17 01:30 Temperature 97.5 F L Pulse Rate 80 79 Respiratory Rate 16 15 15 Blood Pressure 100/64 98/69 L Pulse Oximetry 96 97 100 10/10/17 01:45 10/10/17 02:00 10/10/17 02:15 Temperature 97.5 F L 97.5 F L 97.5 F L Pulse Rate 79 79 80 Respiratory Rate 15 15 15 Blood Pressure 99/69 L 102/72 102/70 Pulse Oximetry 100 100 100 10/10/17 02:30 10/10/17 02:45 10/10/17 03:00 Temperature 97.7 F 97.7 F 97.7 F Pulse Rate 80 79 79 Respiratory Rate 16 15 15 Blood Pressure 99/68 L 99/67 L 99/67 L Pulse Oximetry 100 100 100 10/10/17 03:15 10/10/17 03:30 10/10/17 03:44 Temperature 97.7 F 97.7 F Pulse Rate 79 78 79 Respiratory Rate 16 16 17 Blood Pressure 99/69 L 99/67 L Pulse Oximetry 100 100 10/10/17 03:45 10/10/17 04:00 10/10/17 04:01 Temperature 97.7 F 97.9 F 97.9 F Pulse Rate 78 105 H 106 H Respiratory Rate 18 19 17 Blood Pressure 97/70 L 119/79 Pulse Oximetry 100 100 99 10/10/17 04:08 10/10/17 04:15 10/10/17 04:30 Temperature 97.9 F 97.9 F Pulse Rate 107 H 93 H Respiratory Rate 18 15 15 Blood Pressure 116/78 106/70 Pulse Oximetry 99 94 L 93 L 10/10/17 04:45 10/10/17 05:00 10/10/17 05:01 Temperature 98.1 F 98.1 F 98.1 F Pulse Rate 82 91 H 95 H Respiratory Rate 15 16 19 Blood Pressure 102/69 121/59 L Pulse Oximetry 93 L 90 L 91 L 10/10/17 05:15 10/10/17 05:30 10/10/17 05:45 Temperature 98.1 F 98.1 F 98.1 F Pulse Rate 92 H 80 85 Respiratory Rate 15 15 15 Blood Pressure 106/69 103/69 104/69 Pulse Oximetry 85 L 83 L 10/10/17 06:00 10/10/17 06:15 10/10/17 06:30 Temperature 98.2 F 98.2 F 98.2 F Pulse Rate 80 79 79 Respiratory Rate 15 15 15 Blood Pressure 100/67 97/67 L 97/66 L Pulse Oximetry 10/10/17 06:45 10/10/17 07:00 10/10/17 07:15 Temperature 98.2 F 98.4 F 98.4 F Pulse Rate 79 80 88 Respiratory Rate 15 20 17 Blood Pressure 96/67 L 97/67 L 103/73 Pulse Oximetry 96 10/10/17 08:00 10/10/17 08:27 10/10/17 09:00 Temperature 98.4 F 98.4 F Pulse Rate 86 103 H 103 H Respiratory Rate 18 17 26 H Blood Pressure 93/66 L 116/72 Pulse Oximetry 89 L 83 L Intake & Output 10/09/17 10/10/17 10/10/17 18:59 06:59 18:59 Intake Total 1226 / 1226 1271 / 1271 50 / 50 Output Total 2700 / 2700 500 / 500 Balance -1474 / -1474 771 / 771 50 / 50 Weight 73.9 kg Intake: IV 450 / 450 300 / 300 50 / 50 Levophed-Dextrose 4 mg/250 ml 250 / 250 Drip 4 mg In 250 ml @ 2 MCG/MIN 7.5 mls/hr IV.SIG TITRATE PRN Rx#:[id number] Zosyn 2.25 GM Premix 50 ML @ 50 / 50 100 mls/hr IV.SIG Q6H JIGNA Rx#: [id number] Zosyn 3.375 GM Premix 50 ML @ 50 / 50 50 / 50 50 / 50 100 mls/hr IV.SIG Q6H JIGNA Rx#: [id number] KCl 20 mEq Premix Inj 20 meq In 100 / 100 100 ml @ 50 mls/hr IV.SIG Q2H PRN Rx#:[id number] 10 mcg/mL Premix Drip 250 / 250 2,500 mcg In 250 ml @ 50 MCG/HR 5 mls/hr IV.SIG TITRATE PRN Rx #:[id number] Oral 0 / 0 Tube Feeding 536 / 536 611 / 611 Water Bolus Amount 240 / 240 360 / 360 Intake (Blood Product) Amt 0 / 0 Plasma Thawed 5 Day Cp2d Unit 0 / 0 [id number] Plt Pheresis A Leukoreduced 0 / 0 Unit [id number] Plt Pheresis B Leukoreduced 0 / 0 Unit [id number] Output: Pleural Fluid 1500 / 1500 Urine Amount (Catheter) 1200 / 1200 500 / 500 Indwelling Urethral Catheter 1200 / 1200 500 / 500 Other: Date of Last Bowel Movement 10/09/17 # Bowel Movements 0 0 Physical Exam: CONSTITUTIONAL/GENERAL: This is a frail, elderly male patient who appears disheveled TUBES/LINES/DRAINS: PIV 2; Alberto catheter; nasal cannula SKIN: Abrasions and bruising on upper and lower extremities bilaterally. Not diaphoretic. HEAD: Atraumatic. Normocephalic. EYES: Pupils equal and round. + scleral icterus. No injection or drainage. Fundi not examined. ENT: Nose without bleeding or purulent drainage. Dry mucous membranes NECK: Trachea midline. Supple, nontender. No palpable thyroid enlargement or nodularity. CARDIOVASCULAR: Regular rate and rhythm without murmurs, gallops, or rubs. No JVD. RESPIRATORY/CHEST: Scattered coarse breath sounds, decreased in bases bilaterally. No wheezing. GASTROINTESTINAL: Abdomen soft, non-tender, nondistended. No hepato-splenomegaly , or palpable masses. No guarding. Bowel sounds hypoactive GENITOURINARY: Without palpable bladder distension. Alberto catheter draining tea colored urine MUSCULOSKELETAL: Feet are cool to touch and mottled bilaterally. 2+ peripheral pitting edema. Muscle wasting in all extremities LYMPHATICS: No palpable cervical or supraclavicular adenopathy. NEUROLOGICAL: Grimaces and withdraws to pain. Does not respond to questions or follow commands. PSYCHIATRIC: No obvious anxiety/depression. No apparent hallucinations or other psychotic thought process. Diagnostic Tests Laboratory: Laboratory Results - last 72 hr 10/07/17 10/07/17 10/07/17 13:30 13:30 18:24 WBC RBC Hgb Hct MCV MCH MCHC RDW Plt Count MPV Prelim Diff (Auto) Neut % (Auto) Lymph % (Auto) Gilchrist % (Auto) Eos % (Auto) Baso % (Auto) Neut # (Auto) Lymph # (Auto) Gilchrist # (Auto) Eos # (Auto) Baso # (Auto) WBC Differential Diff Scan Seg Neuts % (Manual) Band Neuts % (Manual) Lymphocytes % (Manual) Monocytes % (Manual) Myelocytes % (Man) Promyelocytes % (Man) Abs Neuts (Manual) Nucleated RBCs/100 WBC Differential Comment Platelet Estimate Platelet Morphology Polychromasia Ovalocytes Acanthocytes (Spur) Keratocytes PT INR APTT Fibrinogen Sodium Potassium Chloride Carbon Dioxide Anion Gap BUN Creatinine Estimated GFR POC Glucose 101 Random Glucose Lactic Acid Calcium Prot Corrected Calcium Phosphorus Magnesium Total Bilirubin AST ALT Alkaline Phosphatase Ammonia Total Creatine Kinase Total Protein Albumin Pleural pH Pleural RBC Pleural Nuc Cells Pleural Neutrophils Pleural Lymphocytes Pleural Monocytes Pleural Histocytes Pleural Mesothelial Pleural Total Protein Pleural LDH Pleural Glucose Random Vancomycin Blood Bank Comment Bld Prod Order Comment 10/08/17 10/08/17 10/08/17 00:25 03:30 03:30 WBC 9.4 RBC 4.24 L Hgb 13.2 Hct 40.5 MCV 95.5 MCH 31.0 MCHC 32.5 RDW 16.1 Plt Count 40 L D MPV 8.9 Prelim Diff (Auto) Slide review pending Neut % (Auto) 83.4 H Lymph % (Auto) 10.5 Gilchrist % (Auto) 5.3 Eos % (Auto) 0.6 Baso % (Auto) 0.2 Neut # (Auto) 7.9 H Lymph # (Auto) 1.0 Gilchrist # (Auto) 0.5 Eos # (Auto) 0.1 Baso # (Auto) 0.0 WBC Differential Manual diff final Diff Scan Seg Neuts % (Manual) 83 H Band Neuts % (Manual) 3 Lymphocytes % (Manual) 8 L Monocytes % (Manual) 3 Myelocytes % (Man) 2 H Promyelocytes % (Man) 1 H Abs Neuts (Manual) 8.4 H Nucleated RBCs/100 WBC 1 H Differential Comment . Platelet Estimate Low L Platelet Morphology Normal Polychromasia 2.3 H Ovalocytes 1+ H Acanthocytes (Spur) Keratocytes Occ H PT INR APTT Fibrinogen Sodium 143 Potassium 3.7 Chloride 108 H Carbon Dioxide 24.6 Anion Gap 10 BUN 61 H Creatinine 1.51 H Estimated GFR 45 L POC Glucose 75 Random Glucose 88 Lactic Acid Calcium 6.9 L* Prot Corrected Calcium 8.6 Phosphorus 2.9 Magnesium 2.4 Total Bilirubin 12.0 H AST 527 H ALT 969 H Alkaline Phosphatase 19 L Ammonia Total Creatine Kinase 74 Total Protein 4.1 L Albumin 1.9 L Pleural pH Pleural RBC Pleural Nuc Cells Pleural Neutrophils Pleural Lymphocytes Pleural Monocytes Pleural Histocytes Pleural Mesothelial Pleural Total Protein Pleural LDH Pleural Glucose Random Vancomycin 11.7 Blood Bank Comment Bld Prod Order Comment 10/08/17 10/08/17 10/08/17 03:30 03:30 03:30 WBC RBC Hgb Hct MCV MCH MCHC RDW Plt Count MPV Prelim Diff (Auto) Neut % (Auto) Lymph % (Auto) Gilchrist % (Auto) Eos % (Auto) Baso % (Auto) Neut # (Auto) Lymph # (Auto) Gilchrist # (Auto) Eos # (Auto) Baso # (Auto) WBC Differential Diff Scan Seg Neuts % (Manual) Band Neuts % (Manual) Lymphocytes % (Manual) Monocytes % (Manual) Myelocytes % (Man) Promyelocytes % (Man) Abs Neuts (Manual) Nucleated RBCs/100 WBC Differential Comment Platelet Estimate Platelet Morphology Polychromasia Ovalocytes Acanthocytes (Spur) Keratocytes PT 17.4 H INR 1.7 APTT 36.4 H Fibrinogen 265 Sodium Potassium Chloride Carbon Dioxide Anion Gap BUN Creatinine Estimated GFR POC Glucose Random Glucose Lactic Acid 2.3 H Calcium Prot Corrected Calcium Phosphorus Magnesium Total Bilirubin AST ALT Alkaline Phosphatase Ammonia 17 Total Creatine Kinase Total Protein Albumin Pleural pH Pleural RBC Pleural Nuc Cells Pleural Neutrophils Pleural Lymphocytes Pleural Monocytes Pleural Histocytes Pleural Mesothelial Pleural Total Protein Pleural LDH Pleural Glucose Random Vancomycin Blood Bank Comment Bld Prod Order Comment 10/08/17 10/08/17 10/08/17 06:33 11:35 14:40 WBC RBC Hgb Hct MCV MCH MCHC RDW Plt Count MPV Prelim Diff (Auto) Neut % (Auto) Lymph % (Auto) Gilchrist % (Auto) Eos % (Auto) Baso % (Auto) Neut # (Auto) Lymph # (Auto) Gilchrist # (Auto) Eos # (Auto) Baso # (Auto) WBC Differential Diff Scan Seg Neuts % (Manual) Band Neuts % (Manual) Lymphocytes % (Manual) Monocytes % (Manual) Myelocytes % (Man) Promyelocytes % (Man) Abs Neuts (Manual) Nucleated RBCs/100 WBC Differential Comment Platelet Estimate Platelet Morphology Polychromasia Ovalocytes Acanthocytes (Spur) Keratocytes PT INR APTT Fibrinogen Sodium Potassium Chloride Carbon Dioxide Anion Gap BUN Creatinine Estimated GFR POC Glucose 84 112 H Random Glucose Lactic Acid Calcium Prot Corrected Calcium Phosphorus Magnesium Total Bilirubin AST ALT Alkaline Phosphatase Ammonia Less than 10 L Total Creatine Kinase Total Protein Albumin Pleural pH Pleural RBC Pleural Nuc Cells Pleural Neutrophils Pleural Lymphocytes Pleural Monocytes Pleural Histocytes Pleural Mesothelial Pleural Total Protein Pleural LDH Pleural Glucose Random Vancomycin Blood Bank Comment Bld Prod Order Comment 10/08/17 10/09/17 10/09/17 17:43 00:20 05:20 WBC 9.5 RBC 4.33 L Hgb 13.6 Hct 41.1 MCV 95.0 MCH 31.4 MCHC 33.1 RDW 16.7 Plt Count 37 L MPV 10.7 Prelim Diff (Auto) Slide review pending Neut % (Auto) 85.6 H Lymph % (Auto) 6.7 L Gilchrist % (Auto) 6.1 Eos % (Auto) 1.4 Baso % (Auto) 0.2 Neut # (Auto) 8.2 H Lymph # (Auto) 0.6 L Gilchrist # (Auto) 0.6 Eos # (Auto) 0.1 Baso # (Auto) 0.0 WBC Differential Manual diff final Diff Scan Seg Neuts % (Manual) 91 H Band Neuts % (Manual) 4 Lymphocytes % (Manual) 4 L Monocytes % (Manual) 1 Myelocytes % (Man) Promyelocytes % (Man) Abs Neuts (Manual) 9.0 H Nucleated RBCs/100 WBC 1 H Differential Comment . Platelet Estimate Low L Platelet Morphology Normal Polychromasia Ovalocytes 1+ H Acanthocytes (Spur) Keratocytes PT INR APTT Fibrinogen Sodium Potassium Chloride Carbon Dioxide Anion Gap BUN Creatinine Estimated GFR POC Glucose 112 H 114 H Random Glucose Lactic Acid Calcium Prot Corrected Calcium Phosphorus Magnesium Total Bilirubin AST ALT Alkaline Phosphatase Ammonia Total Creatine Kinase Total Protein Albumin Pleural pH Pleural RBC Pleural Nuc Cells Pleural Neutrophils Pleural Lymphocytes Pleural Monocytes Pleural Histocytes Pleural Mesothelial Pleural Total Protein Pleural LDH Pleural Glucose Random Vancomycin Blood Bank Comment Bld Prod Order Comment 10/09/17 10/09/17 10/09/17 05:20 05:20 06:01 WBC RBC Hgb Hct MCV MCH MCHC RDW Plt Count MPV Prelim Diff (Auto) Neut % (Auto) Lymph % (Auto) Gilchrist % (Auto) Eos % (Auto) Baso % (Auto) Neut # (Auto) Lymph # (Auto) Gilchrist # (Auto) Eos # (Auto) Baso # (Auto) WBC Differential Diff Scan Seg Neuts % (Manual) Band Neuts % (Manual) Lymphocytes % (Manual) Monocytes % (Manual) Myelocytes % (Man) Promyelocytes % (Man) Abs Neuts (Manual) Nucleated RBCs/100 WBC Differential Comment Platelet Estimate Platelet Morphology Polychromasia Ovalocytes Acanthocytes (Spur) Keratocytes PT 15.3 H INR 1.5 APTT Fibrinogen Sodium 144 Potassium 3.3 L Chloride 106 Carbon Dioxide 26.5 Anion Gap 12 BUN 52 H Creatinine 1.36 H Estimated GFR 50 L POC Glucose 119 H Random Glucose 92 Lactic Acid Calcium 7.0 L* Prot Corrected Calcium 8.6 Phosphorus 3.1 Magnesium 2.2 Total Bilirubin 14.1 H AST 446 H ALT 940 H Alkaline Phosphatase 28 L Ammonia Total Creatine Kinase Total Protein 4.2 L Albumin 1.8 L Pleural pH Pleural RBC Pleural Nuc Cells Pleural Neutrophils Pleural Lymphocytes Pleural Monocytes Pleural Histocytes Pleural Mesothelial Pleural Total Protein Pleural LDH Pleural Glucose Random Vancomycin 15.9 Blood Bank Comment Bld Prod Order Comment 10/09/17 10/09/17 10/09/17 07:51 07:52 11:08 WBC RBC Hgb Hct MCV MCH MCHC RDW Plt Count MPV Prelim Diff (Auto) Neut % (Auto) Lymph % (Auto) Gilchrist % (Auto) Eos % (Auto) Baso % (Auto) Neut # (Auto) Lymph # (Auto) Gilchrist # (Auto) Eos # (Auto) Baso # (Auto) WBC Differential Diff Scan Seg Neuts % (Manual) Band Neuts % (Manual) Lymphocytes % (Manual) Monocytes % (Manual) Myelocytes % (Man) Promyelocytes % (Man) Abs Neuts (Manual) Nucleated RBCs/100 WBC Differential Comment Platelet Estimate Platelet Morphology Polychromasia Ovalocytes Acanthocytes (Spur) Keratocytes PT INR APTT Fibrinogen Sodium Potassium Chloride Carbon Dioxide Anion Gap BUN Creatinine Estimated GFR POC Glucose 144 H Random Glucose Lactic Acid Calcium Prot Corrected Calcium Phosphorus Magnesium Total Bilirubin AST ALT Alkaline Phosphatase Ammonia Total Creatine Kinase Total Protein Albumin Pleural pH Pleural RBC Pleural Nuc Cells Pleural Neutrophils Pleural Lymphocytes Pleural Monocytes Pleural Histocytes Pleural Mesothelial Pleural Total Protein Pleural LDH Pleural Glucose Random Vancomycin Blood Bank Comment Bld Prod Order Comment 10/09/17 10/09/17 10/09/17 14:40 14:40 18:17 WBC RBC Hgb Hct MCV MCH MCHC RDW Plt Count MPV Prelim Diff (Auto) Neut % (Auto) Lymph % (Auto) Gilchrist % (Auto) Eos % (Auto) Baso % (Auto) Neut # (Auto) Lymph # (Auto) Gilchrist # (Auto) Eos # (Auto) Baso # (Auto) WBC Differential Diff Scan Seg Neuts % (Manual) Band Neuts % (Manual) Lymphocytes % (Manual) Monocytes % (Manual) Myelocytes % (Man) Promyelocytes % (Man) Abs Neuts (Manual) Nucleated RBCs/100 WBC Differential Comment Platelet Estimate Platelet Morphology Polychromasia Ovalocytes Acanthocytes (Spur) Keratocytes PT INR APTT Fibrinogen Sodium Potassium 4.1 D Chloride Carbon Dioxide Anion Gap BUN Creatinine Estimated GFR POC Glucose Random Glucose Lactic Acid Calcium Prot Corrected Calcium Phosphorus Magnesium Total Bilirubin AST ALT Alkaline Phosphatase Ammonia Total Creatine Kinase Total Protein Albumin Pleural pH 8.5 Pleural RBC 1859 H Pleural Nuc Cells 172 H Pleural Neutrophils 37 Pleural Lymphocytes 30 Pleural Monocytes 7 Pleural Histocytes 3 Pleural Mesothelial 23 Pleural Total Protein 1.0 Pleural LDH 194 Pleural Glucose 104 Random Vancomycin Blood Bank Comment d Prod Order Comment 10/09/17 10/10/17 10/10/17 18:20 00:26 05:15 WBC 9.9 RBC 4.24 L Hgb 13.4 Hct 40.2 MCV 94.9 MCH 31.6 MCHC 33.3 RDW 17.4 H Plt Count 86 L D MPV 10.1 Prelim Diff (Auto) Slide review pending Neut % (Auto) 88.5 H Lymph % (Auto) 3.9 L Gilchrist % (Auto) 7.3 Eos % (Auto) 0.2 Baso % (Auto) 0.1 Neut # (Auto) 8.8 H Lymph # (Auto) 0.4 L Gilchrist # (Auto) 0.7 Eos # (Auto) 0.0 Baso # (Auto) 0.0 WBC Differential . Diff Scan Auto diff confirmed Seg Neuts % (Manual) Band Neuts % (Manual) Lymphocytes % (Manual) Monocytes % (Manual) Myelocytes % (Man) Promyelocytes % (Man) Abs Neuts (Manual) Nucleated RBCs/100 WBC Differential Comment . Platelet Estimate Low L Platelet Morphology Normal Polychromasia Ovalocytes 1+ H Acanthocytes (Spur) Occ H Keratocytes Occ H PT INR APTT Fibrinogen Sodium Potassium Chloride Carbon Dioxide Anion Gap BUN Creatinine Estimated GFR POC Glucose 105 116 H Random Glucose Lactic Acid Calcium Prot Corrected Calcium Phosphorus Magnesium Total Bilirubin AST ALT Alkaline Phosphatase Ammonia Total Creatine Kinase Total Protein Albumin Pleural pH Pleural RBC Pleural Nuc Cells Pleural Neutrophils Pleural Lymphocytes Pleural Monocytes Pleural Histocytes Pleural Mesothelial Pleural Total Protein Pleural LDH Pleural Glucose Random Vancomycin Blood Bank Comment d Prod Order Comment 10/10/17 10/10/17 10/10/17 05:15 05:15 05:36 WBC RBC Hgb Hct MCV MCH MCHC RDW Plt Count MPV Prelim Diff (Auto) Neut % (Auto) Lymph % (Auto) Gilchrist % (Auto) Eos % (Auto) Baso % (Auto) Neut # (Auto) Lymph # (Auto) Gilchrist # (Auto) Eos # (Auto) Baso # (Auto) WBC Differential Diff Scan Seg Neuts % (Manual) Band Neuts % (Manual) Lymphocytes % (Manual) Monocytes % (Manual) Myelocytes % (Man) Promyelocytes % (Man) Abs Neuts (Manual) Nucleated RBCs/100 WBC Differential Comment Platelet Estimate Platelet Morphology Polychromasia Ovalocytes Acanthocytes (Spur) Keratocytes PT 13.8 H INR 1.4 APTT Fibrinogen Sodium 145 Potassium 4.0 Chloride 106 Carbon Dioxide 28.2 Anion Gap 11 BUN 62 H Creatinine 1.58 H Estimated GFR 42 L POC Glucose 117 H Random Glucose 107 H Lactic Acid Calcium 7.4 L* Prot Corrected Calcium 8.5 Phosphorus 4.2 D Magnesium 2.6 H Total Bilirubin 14.4 H AST 243 H ALT 699 H Alkaline Phosphatase 35 L Ammonia Total Creatine Kinase Total Protein 5.2 L D Albumin 2.1 L Pleural pH Pleural RBC Pleural Nuc Cells Pleural Neutrophils Pleural Lymphocytes Pleural Monocytes Pleural Histocytes Pleural Mesothelial Pleural Total Protein Pleural LDH Pleural Glucose Random Vancomycin Blood Bank Comment Bld Prod Order Comment 10/10/17 12:15 WBC RBC Hgb Hct MCV MCH MCHC RDW Plt Count MPV Prelim Diff (Auto) Neut % (Auto) Lymph % (Auto) Gilchrist % (Auto) Eos % (Auto) Baso % (Auto) Neut # (Auto) Lymph # (Auto) Gilchrist # (Auto) Eos # (Auto) Baso # (Auto) WBC Differential Diff Scan Seg Neuts % (Manual) Band Neuts % (Manual) Lymphocytes % (Manual) Monocytes % (Manual) Myelocytes % (Man) Promyelocytes % (Man) Abs Neuts (Manual) Nucleated RBCs/100 WBC Differential Comment Platelet Estimate Platelet Morphology Polychromasia Ovalocytes Acanthocytes (Spur) Keratocytes PT INR APTT Fibrinogen Sodium Potassium Chloride Carbon Dioxide Anion Gap BUN Creatinine Estimated GFR POC Glucose 140 H Random Glucose Lactic Acid Calcium Prot Corrected Calcium Phosphorus Magnesium Total Bilirubin AST ALT Alkaline Phosphatase Ammonia Total Creatine Kinase Total Protein Albumin Pleural pH Pleural RBC Pleural Nuc Cells Pleural Neutrophils Pleural Lymphocytes Pleural Monocytes Pleural Histocytes Pleural Mesothelial Pleural Total Protein Pleural LDH Pleural Glucose Random Vancomycin Blood Bank Comment Bld Prod Order Comment Result Diagrams: 10/10/17 05:15 10/10/17 05:15 Microbiology: Microbiology 10/09/17 09:00 Gram Stain - Final Sputum - Endotracheal Sputum Culture - Preliminary Moderate growth normal respiratory lesli at 24 hours 10/09/17 14:40 Fungal Smear - Final Fluid - Pleural fluid No fungal elements seen 10/09/17 14:40 Gram Stain - Final Fluid - Pleural fluid 10/03/17 18:40 Aerobic Blood Culture - Final Blood - Line No growth in 5 days Anaerobic Blood Culture - Final No growth in 5 days 10/03/17 18:45 Aerobic Blood Culture - Final Blood - Line No growth in 5 days Anaerobic Blood Culture - Final No growth in 5 days Imaging: Elbow X-Ray 10/03/17 18:31 CONCLUSION: There is discontinuity of the tip of a small olecranon spur without soft tissue swelling. Cannot exclude a fracture. Recommend correlation with clinical exam for point tenderness in this area. Hip X-Ray 10/03/17 18:31 CONCLUSION: No fracture seen. Lumbar Spine X-Ray 10/03/17 18:31 CONCLUSION: 60% anterior compression fracture of L2. No retropulsed fragments seen. Cervical Spine CT 10/03/17 18:35 CONCLUSION: 1. No evidence of compression deformity, fracture, or spondylolisthesis. 2. Advanced hypertrophic degenerative changes in the facet joints, more severe on the right. Abdomen/Pelvis CT 10/03/17 18:38 CONCLUSION: 1. Bilateral pleural effusions, right greater than left. 2. Nonobstructing 4 mm stone in the right renal collecting system. 3. 3.7 cm infrarenal abdominal aortic aneurysm. 4. Small fat-containing left inguinal hernia. Chest CT 10/03/17 18:38 CONCLUSION: 1. Large right and small left pleural effusion. 2. No fracture seen. No evidence of pneumothorax. Liver Ultrasound 10/04/17 00:00 CONCLUSION: 1. No evidence of gallstones or biliary tract obstruction. 2. There is a cyst along the upper pole the right kidney measuring 3 cm. 3. Bilateral pleural effusions. Head CT 10/06/17 00:00 CONCLUSION: 1. Stable evaluation the brain. 2. No evidence of acute infarct, hemorrhage, mass or edema. . Head MRI 10/09/17 00:00 CONCLUSION: 1. No acute infarct, acute hemorrhage, midline shift or extra-axial fluid collections. 2. Mild cerebral atrophy. 3. 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 4. Minimal small vessel ischemic changes within the periventricular and subcortical white matter bilaterally. Chest X-Ray 10/09/17 13:57 CONCLUSION: Improving aeration. No evidence of pneumothorax. Procedures: 10/06/17: Intubation 10/06/17: Central line placement Assessment and Plan - Disease Oriented Problem List (1) Pleural effusion (2) JAVON (acute kidney injury) (3) NSTEMI (non-ST elevated myocardial infarction) (4) Electrolyte imbalance (5) Hypertension - Symptom Scale (1) Confusion Comment: = Neurology was consulted because of patient's ongoing encephalopathy. = MRI of the brain on 10/09/2017 showed no acute infarct, acute hemorrhage, midline shift or extra-axial fluid collections. Mild cerebral atrophy. 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 Minimal small vessel ischemic changes within the periventricular and subcortical white matter bilaterally. = EEG pending (2) Dyspnea Pertinent Non-Medical Issues: Psychosocial: Patient is originally from [place], [place]. He moved to [place], [place] in 1991. He was twice, twice. Patient has 2 children from his first marriage (Kayy Gould and Pablo), and one child (Paul) from his second marriage. He reportedly has had no contact with his children. His parents are . He has 5 brothers and one sister but apparently has not had any contact with him for many years. Patient graduated from high school; he had a variety of different jobs. Spiritual: Patient is unable to provide this information due to his altered mentation/confusion. Legal: Accurate in's requested, awaiting results Ethical issues impacting care: No known ethical issues impacting care at this time Important Contacts: Madina Acevedo, friend: [phone] Prognosis: Patient is a severely debilitated 82-year-old male with multiorgan failure and severe sepsis. Patient is critically ill and at very high risk for further decompensation and . Prognosis is very poor. Code Status: Full Code Plan: = FULL CODE = Decision making: [facility] and [facility] searches did not identify any potential family members. In accordance with the [place] statutes, it would be appropriated to proceed with patient's friend (Madina Curtis) as the HCP decision maker. Healthcare proxy designation and acceptance form and notarized healthcare proxy of the dated were placed in the patient's chart and faxed to HIM to be scanned into the patient's EMR = GOALS REMAIN AGGRESSIVE. Friend/HCP (Madina Curtis) states "I think he still got something left; he's not ready to ." She is familiar with the process of withdrawing artificial life support with her father's girlfriend; she states she is not afraid to make those decisions if the patient continues to decline but only when she is certain it is the right thing to do. She is familiar with the process of withdrawing artificial life support with her father's girlfriend ; she states she is not afraid to make those decisions but only when she is certain it is the right thing to do. = Attempted to call patient's friend (Madina Acevedo) to provide a clinical update ; a message was left on her voicemail. = Symptom management: ++ Dyspnea: Patient was emergently intubated on 10/06/2017 secondary to worsening hypoxia and periods of apnea. Tolerating CPAP trails this morning. CXR on 10/08/2017 showed worsening right greater than left bibasilar consolidation and small pleural effusions. Follow-up checks x-ray on 10/09/2017 showed improved aeration status post thoracentesis with 1.5L transudative fluid removed. Cultures pending. Daily SBTs ++ Confusion: Acute encephalopathy likely multi-factorial. Contributing factors may include metabolic imbalance, sepsis, UTI, pain, constipation etc. Patient is sedated with fentanyl. CT of the brain on 10/06/17 showed no evidence of acute infarct, hemorrhage, mass or edema. MRI of the brain on 2017 showed no acute infarct, acute hemorrhage, midline shift or extra-axial fluid collections. Mild cerebral atrophy. 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 Minimal small vessel ischemic changes within the periventricular and subcortical white matter bilaterally. Neurology following = Palliative care contact information provided to health care proxy decision maker. = Palliative care will continue to follow this patient throughout his hospitalization to establish trust, assist with symptom management and clarification of medical treatment goals. Attestation Attestation: To help prompt me to consider important information that might be impacting today's encounter and assessment, information from prior notes written by myself or my colleagues may have been "brought forward" into today's note. My signature on this note, however, is an attestation that I personally performed the exam, history, and/or decision-making noted today, and, unless otherwise indicated, the interactions with patient, family, and staff as well as the review of records all occurred today. I also attest that the listed assessment and stated plan reflect my best clinical judgment today based on the combination of historical information, prior notes, and today's exam/ interactions. When time spent is documented, it refers only to time spent today by the signer, or if indicated, combined time spent today by collaborating physician/nurse practitioner.
[2017-10-10] MEDS: Vancomycin Inj 1,250 MG in Sodium Chlor 0.9% Inj 250 ML IV.SIG SCH (15:34)
[2017-10-10] MEDS ORDERED: Pharmacy Ordered Lab Info OTHER ONE (15:45)
[2017-10-10] MEDS: fentaNYL 10 mcg/mL Premix Drip 2,500 MCG/250 ML BAG IV.SIG PRN (18:52)
--- NOTE | 2017-10-10 23:08 | P.PNCA ---
Subjective Interval history: No events overnight Stable, intubated MRI showing small vessel disease Physical Exam Vital signs: Vital Signs 10/10/17 00:00 10/10/17 00:30 10/10/17 01:00 Temperature Pulse Rate 80 80 Respiratory Rate 15 16 15 Blood Pressure 97/63 L 100/64 Pulse Oximetry 97 96 97 10/10/17 01:30 10/10/17 01:45 10/10/17 02:00 Temperature 97.5 F L 97.5 F L 97.5 F L Pulse Rate 79 79 79 Respiratory Rate 15 15 15 Blood Pressure 98/69 L 99/69 L 102/72 Pulse Oximetry 100 100 100 10/10/17 02:15 10/10/17 02:30 10/10/17 02:45 Temperature 97.5 F L 97.7 F 97.7 F Pulse Rate 80 80 79 Respiratory Rate 15 16 15 Blood Pressure 102/70 99/68 L 99/67 L Pulse Oximetry 100 100 100 10/10/17 03:00 10/10/17 03:15 10/10/17 03:30 Temperature 97.7 F 97.7 F 97.7 F Pulse Rate 79 79 78 Respiratory Rate 15 16 16 Blood Pressure 99/67 L 99/69 L 99/67 L Pulse Oximetry 100 100 100 10/10/17 03:44 10/10/17 03:45 10/10/17 04:00 Temperature 97.7 F 97.9 F Pulse Rate 79 78 105 H Respiratory Rate 17 18 19 Blood Pressure 97/70 L Pulse Oximetry 100 100 10/10/17 04:01 10/10/17 04:08 10/10/17 04:15 Temperature 97.9 F 97.9 F Pulse Rate 106 H 107 H Respiratory Rate 17 18 15 Blood Pressure 119/79 116/78 Pulse Oximetry 99 99 94 L 10/10/17 04:30 10/10/17 04:45 10/10/17 05:00 Temperature 97.9 F 98.1 F 98.1 F Pulse Rate 93 H 82 91 H Respiratory Rate 15 15 16 Blood Pressure 106/70 102/69 Pulse Oximetry 93 L 93 L 90 L 10/10/17 05:01 10/10/17 05:15 10/10/17 05:30 Temperature 98.1 F 98.1 F 98.1 F Pulse Rate 95 H 92 H 80 Respiratory Rate 19 15 15 Blood Pressure 121/59 L 106/69 103/69 Pulse Oximetry 91 L 85 L 83 L 10/10/17 05:45 10/10/17 06:00 10/10/17 06:15 Temperature 98.1 F 98.2 F 98.2 F Pulse Rate 85 80 79 Respiratory Rate 15 15 15 Blood Pressure 104/69 100/67 97/67 L Pulse Oximetry 10/10/17 06:30 10/10/17 06:45 10/10/17 07:00 Temperature 98.2 F 98.2 F 98.4 F Pulse Rate 79 79 80 Respiratory Rate 15 15 20 Blood Pressure 97/66 L 96/67 L 97/67 L Pulse Oximetry 10/10/17 07:15 10/10/17 08:00 10/10/17 08:27 Temperature 98.4 F 98.4 F Pulse Rate 88 86 103 H Respiratory Rate 17 18 17 Blood Pressure 103/73 93/66 L Pulse Oximetry 96 89 L 10/10/17 09:00 10/10/17 10:00 10/10/17 11:00 Temperature 98.4 F 98.6 F 98.8 F Pulse Rate 103 H 81 84 Respiratory Rate 26 H 14 12 Blood Pressure 116/72 89/57 L 92/61 L Pulse Oximetry 83 L 99 98 10/10/17 12:00 10/10/17 13:00 10/10/17 14:01 Temperature 99.0 F 99.1 F 99.5 F Pulse Rate 92 H 88 96 H Respiratory Rate 31 H 31 H 33 H Blood Pressure 100/70 95/70 L 106/70 Pulse Oximetry 98 96 84 L 10/10/17 15:00 10/10/17 15:30 10/10/17 16:00 Temperature 99.5 F 99.7 F H Pulse Rate 88 93 H Respiratory Rate 16 16 17 Blood Pressure 97/66 L 106/72 Pulse Oximetry 98 98 10/10/17 17:00 10/10/17 18:00 10/10/17 19:35 Temperature 100.6 F H 100.6 F H Pulse Rate 108 H 112 H Respiratory Rate 24 25 H 19 Blood Pressure 135/91 H 125/84 Pulse Oximetry 72 L 98 95 10/10/17 20:12 Temperature Pulse Rate 107 H Respiratory Rate 20 Blood Pressure Pulse Oximetry Intake & Output 10/10/17 10/10/1718 06:59 18:59 06:59 Intake Total 1271 / 1271 1360.5 / 1360.5 150 / 150 Output Total 500 / 500 325 / 325 Balance 771 / 771 1035.5 / 1035.5 150 / 150 Weight 73.9 kg Intake: IV 300 / 300 612.5 / 612.5 150 / 150 Levophed-Dextrose 4 mg/250 ml 250 / 250 Drip 4 mg In 250 ml @ 2 MCG/MIN 7.5 mls/hr IV.SIG TITRATE PRN Rx#:[id number] Zosyn 3.375 GM Premix 50 ML @ 50 / 50 100 / 100 50 / 50 100 mls/hr IV.SIG Q6H JIGNA Rx#: [id number] KCl 20 mEq Premix Inj 20 meq In 100 / 100 100 ml @ 50 mls/hr IV.SIG Q2H PRN Rx#:[id number] Vancomycin Inj 1,250 MG In NS 262.5 / 262.5 Inj 250 ML @ 250 mls/hr IV.SIG Q24H JIGNA Rx#:[id number] fentaNYL 10 mcg/mL Premix Drip 250 / 250 2,500 mcg In 250 ml @ 50 MCG/HR 5 mls/hr IV.SIG TITRATE PRN Rx #:[id number] Oral 0 / 0 Tube Feeding 611 / 611 508 / 508 Water Bolus Amount 360 / 360 240 / 240 Output: Urine Amount (Catheter) 500 / 500 325 / 325 Indwelling Urethral Catheter 500 / 500 325 / 325 Other: Date of Last Bowel Movement 10/09/17 # Bowel Movements 0 0 Narrative: GENERAL: Lightly sedated and intubated SKIN: Warm and dry. HEAD: Atraumatic. Normocephalic. EYES: Pupils equal and round. No scleral icterus. No injection or drainage. ENT: No nasal bleeding or discharge. Mucous membranes pink and moist. NECK: Trachea midline. No JVD. CARDIOVASCULAR: Regular rate and rhythm. RESPIRATORY: No accessory muscle use. Decreased breath sounds bilaterally. GASTROINTESTINAL: Abdomen soft, non-tender, nondistended. Hepatic and splenic margins not palpable. MUSCULOSKELETAL: Extremities without clubbing, cyanosis, or edema. No obvious deformities. NEUROLOGICAL: Intubated and lightly sedated - Urinary Catheter Management Indwelling Urethral Catheter Cath placed during this visit: yes Reason for continuing: Hourly intake/output Insertion date: 10/03/17 Insertion time: 18:00 Assessment and Plan - Assessment (1) NSTEMI (non-ST elevated myocardial infarction) Code(s): I21.4 - Non-ST elevation (NSTEMI) myocardial infarction Status: Acute (2) Electrolyte imbalance Code(s): E87.8 - Other disorders of electrolyte and fluid balance, not elsewhere classified Status: Acute (3) Pleural effusion Code(s): J90 - Pleural effusion, not elsewhere classified Status: Acute (4) JAVON (acute kidney injury) Code(s): N17.9 - Acute kidney failure, unspecified Status: Acute (5) Confusion Code(s): R41.0 - Disorientation, unspecified Status: Acute (6) Dyspnea Code(s): R06.00 - Dyspnea, unspecified Status: Acute (7) Hypertension Code(s): I10 - Essential (primary) hypertension Status: Acute - Plan 1) Overall relatively stable 2) Lab abnormalities somewhat normalizing 3) Vent per critical care 4) NSTEMI Not an ischemic candidate work up Con't medical management 5) Palliative care following 6) Overall prognosis/recovery felt to be poor
[2017-10-11] MEDS: Insulin NovoLOG Aspart Correctional Sugar Inj SQ SCH ×4 (00:57→19:38)
[2017-10-11] MEDS: Piperacil/Tazo 3.375 GM Premix 50 ML IV.SIG SCH ×4 (03:21→21:11)
--- NOTE | 2017-10-11 04:29 | XR ---
EXAM DATE: 10/11/2017 4:26 AM EDT AGE/SEX: 82 years / Male INDICATIONS: Shortness of breath, possible pulmonary disease. CLINICAL DATA: This is the patient's subsequent encounter. Patient reports that signs and symptoms h ave been present for 1 week and indicates a pain score of Nonresponsive. MEDICAL/SURGICAL HISTORY: Non-responsive. Non-responsive. COMPARISON: [facility] [place], CHEST 1V SINGLE AP, 10/09/2017. . FINDINGS: Mild patchy mid and lower lung consolidation and small effusions on both sides not significantly rodriguez ged. No pneumothorax. Mild cardiomegaly is stable. Endotracheal tube tip is approximately 4 cm above the jose angel. Nasogastric tube courses into the stoma ch. There is a right internal jugular central venous catheter again seen, tip in the superior vena ca va. CONCLUSION: No significant change. Electronically signed by: Mario Damico MD 10/11/2017 4:28 AM EDT
[2017-10-11 05:43] LABS: Baso % (Auto) 0.3 % (0.0-2.0); Hematocrit 41.8 % (39.0-51.0); Hemoglobin 13.7 gm/dL (13.0-17.0); Lymph # (Auto) 0.3 th/mm3 (1.0-4.8); Lymph % (Auto) 2.7 % (9.0-44.0); Mean Corpuscular HGB Conc 32.7 % (32.0-36.0); Mean Corpuscular Hemoglobin 31.2 pg (27.0-34.0); Mean Corpuscular Volume 95.2 fL (80.0-100.0); Mean Platelet Volume 10.5 fL (7.0-11.0); Mono # (Auto) 0.7 th/mm3 (0.0-0.9); Mono % (Auto) 6.9 % (0.0-8.0); Neut # (Auto) 9.3 th/mm3 (1.8-7.7); Neut % (Auto) 90.1 % (16.0-70.0); Platelet Count 77 th/mm3 (150-450); Red Blood Count 4.39 mil/mm3 (4.50-5.90); Red Cell Distribution Width 17.9 % (11.6-17.2); White Blood Count 10.3 th/mm3 (4.0-11.0)
[2017-10-11 05:47] LABS: INR 1.4 Ratio; Prothrombin Time 14.4 sec (9.8-11.6)
[2017-10-11 06:16] LABS: Alanine Aminotransferase 537 U/L (12-78); Phosphorus 4.5 mg/dL (2.5-4.9)
[2017-10-11 06:18] LABS: Alkaline Phosphatase 54 U/L (45-117); Total Protein 5.1 g/dL (6.4-8.2)
[2017-10-11 06:23] LABS: Albumin 2.1 g/dL (3.4-5.0); Anion Gap 13 meq/L (5-15); Aspartate Aminotransferase 149 U/L (15-37); Blood Urea Nitrogen 69 mg/dL (7-18); Calcium 7.5 mg/dL (8.5-10.1); Carbon Dioxide 25.2 meq/L (21.0-32.0); Chloride 107 meq/L (98-107); Glomerular Filtration Rate 38 mL/min (>89); Glucose,Random 136 mg/dL (74-106); Magnesium 2.6 mg/dL (1.5-2.5); Potassium 4.2 meq/L (3.5-5.1)
[2017-10-11 06:26] LABS: Sodium 145 meq/L (136-145)
[2017-10-11 08:30] LABS: Acanthocytes Occ; Ovalocytes 1+
[2017-10-11 08:31] LABS: Platelet Morphology Normal (Normal)
--- NOTE | 2017-10-11 10:20 | P.PNCA ---
Subjective Interval history: No events No changes Physical Exam Vital signs: Vital Signs 10/10/17 11:00 10/10/17 12:00 10/10/17 13:00 Temperature 98.8 F 99.0 F 99.1 F Pulse Rate 84 92 H 88 Respiratory Rate 12 31 H 31 H Blood Pressure 92/61 L 100/70 95/70 L Pulse Oximetry 98 98 96 10/10/17 14:01 10/10/17 15:00 10/10/17 15:30 Temperature 99.5 F 99.5 F Pulse Rate 96 H 88 Respiratory Rate 33 H 16 16 Blood Pressure 106/70 97/66 L Pulse Oximetry 84 L 98 10/10/17 16:00 10/10/17 17:00 10/10/17 18:00 Temperature 99.7 F H 100.6 F H 100.6 F H Pulse Rate 93 H 108 H 112 H Respiratory Rate 17 24 25 H Blood Pressure 106/72 135/91 H 125/84 Pulse Oximetry 98 72 L 98 10/10/17 19:00 10/10/17 19:35 10/10/17 20:00 Temperature 100.6 F H 100.6 F H Pulse Rate 117 H 102 H Respiratory Rate 18 19 16 Blood Pressure 128/85 111/70 Pulse Oximetry 95 95 10/10/17 20:12 10/10/17 20:15 10/10/17 20:30 Temperature Pulse Rate 107 H Respiratory Rate 20 Blood Pressure 111/77 101/65 Pulse Oximetry 10/10/17 20:45 10/10/17 21:00 10/10/17 22:00 Temperature 100.2 F H 99.9 F H Pulse Rate 95 H 96 H Respiratory Rate 15 15 Blood Pressure 110/71 105/69 100/66 Pulse Oximetry 98 88 L 10/10/17 23:00 10/11/17 00:00 10/11/17 00:35 Temperature 99.9 F H 99.9 F H Pulse Rate 95 H 91 H Respiratory Rate 15 15 15 Blood Pressure 99/66 L 97/67 L Pulse Oximetry 99 99 10/11/17 01:00 10/11/17 02:00 10/11/17 03:00 Temperature 99.9 F H 99.9 F H 99.7 F H Pulse Rate 88 96 H 93 H Respiratory Rate 15 15 15 Blood Pressure 96/66 L 104/71 106/70 Pulse Oximetry 99 91 L 95 10/11/17 03:48 10/11/17 04:00 10/11/17 04:34 Temperature 99.7 F H Pulse Rate 95 H 92 H Respiratory Rate 18 15 15 Blood Pressure 102/68 Pulse Oximetry 99 98 10/11/17 05:00 10/11/17 06:00 10/11/17 08:00 Temperature 99.5 F 99.5 F 99.7 F H Pulse Rate 93 H 85 81 Respiratory Rate 15 15 15 Blood Pressure 105/75 93/65 L 92/61 L Pulse Oximetry 98 95 97 10/11/17 08:49 Temperature Pulse Rate Respiratory Rate 15 Blood Pressure Pulse Oximetry 96 Intake & Output 10/10/17 10/11/17 10/11/17 18:59 06:59 18:59 Intake Total 1360.5 / 1360.5 633 / 633 Output Total 325 / 325 400 / 400 Balance 1035.5 / 1035.5 233 / 233 Weight 73.7 kg Intake: IV 612.5 / 612.5 250 / 250 Zosyn 3.375 GM Premix 50 ML @ 100 / 100 150 / 150 100 mls/hr IV.SIG Q6H JIGNA Rx#: [id number] KCl 20 mEq Premix Inj 20 meq In 100 / 100 100 ml @ 50 mls/hr IV.SIG Q2H PRN Rx#:[id number] Vancomycin Inj 1,250 MG In NS 262.5 / 262.5 Inj 250 ML @ 250 mls/hr IV.SIG Q24H JIGNA Rx#:[id number] fentaNYL 10 mcg/mL Premix Drip 250 / 250 2,500 mcg In 250 ml @ 50 MCG/HR 5 mls/hr IV.SIG TITRATE PRN Rx #:[id number] Oral 0 / 0 Tube Feeding 508 / 508 283 / 283 Tube Irrigant 100 / 100 Water Bolus Amount 240 / 240 Output: Urine Amount (Catheter) 325 / 325 400 / 400 Indwelling Urethral Catheter 325 / 325 400 / 400 Other: Date of Last Bowel Movement 10/09/17 10/09/17 # Bowel Movements 0 Narrative: GENERAL: Lightly sedated and intubated SKIN: Warm and dry. HEAD: Atraumatic. Normocephalic. EYES: Pupils equal and round. No scleral icterus. No injection or drainage. ENT: No nasal bleeding or discharge. Mucous membranes pink and moist. NECK: Trachea midline. No JVD. CARDIOVASCULAR: Regular rate and rhythm. RESPIRATORY: No accessory muscle use. Decreased breath sounds bilaterally. GASTROINTESTINAL: Abdomen soft, non-tender, nondistended. Hepatic and splenic margins not palpable. MUSCULOSKELETAL: Extremities without clubbing, cyanosis, or edema. No obvious deformities. NEUROLOGICAL: Intubated and lightly sedated - Urinary Catheter Management Indwelling Urethral Catheter Cath placed during this visit: yes Reason for continuing: Hourly intake/output Insertion date: 10/03/17 Insertion time: 18:00 Assessment and Plan - Assessment (1) NSTEMI (non-ST elevated myocardial infarction) Code(s): I21.4 - Non-ST elevation (NSTEMI) myocardial infarction Status: Acute (2) Electrolyte imbalance Code(s): E87.8 - Other disorders of electrolyte and fluid balance, not elsewhere classified Status: Acute (3) Pleural effusion Code(s): J90 - Pleural effusion, not elsewhere classified Status: Acute (4) JAVON (acute kidney injury) Code(s): N17.9 - Acute kidney failure, unspecified Status: Acute (5) Confusion Code(s): R41.0 - Disorientation, unspecified Status: Acute (6) Dyspnea Code(s): R06.00 - Dyspnea, unspecified Status: Acute (7) Hypertension Code(s): I10 - Essential (primary) hypertension Status: Acute - Plan 1) Overall relatively stable 2) Lab abnormalities somewhat normalizing 3) Vent per critical care 4) NSTEMI Not an ischemic candidate work up Con't medical management 5) Palliative care following 6) Overall prognosis/recovery felt to be poor Will see PRN, call with questions
[2017-10-11] MEDS: Hypromellose 0.3% Opth Gel 10 GM Bottle EACH EYE SCH ×2 (11:17→21:13)
[2017-10-11] MEDS: Senna/Docusate Sodium 8.6/50 MG Tablet PO SCH ×2 (11:17→21:27)
[2017-10-11] MEDS: fentaNYL 10 mcg/mL Premix Drip 2,500 MCG/250 ML BAG IV.SIG PRN (12:42)
--- NOTE | 2017-10-11 14:49 | P.PNCC ---
Subjective Subjective Remarks/Hospital Course: Patient is an elderly male with unknown past medical history who was found on the floor of his apartment with door open. Apparently neighbors checked on him and found him unresponsive on the floor. Patient was brought to the emergency department and underwent extensive workup to rule out trauma. CT of the head showed moderate to severe atrophy, CT of the chest showed moderate right-sided and small left effusion. 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 X-ray of his right elbow showed a possible olecranon spur discontinuity. Multiple lab abnormalities white count was 12.8 with 87% neutrophils platelet count 60 INR was 2.3. UA showed evidence of UTI, patient received a dose of cefepime for severe sepsis. Also his troponin was elevated at 6.8, lactic acid was 8.3 BUN 67 creatinine 2.71. Patient received 2 L normal saline boluses. Dr. Jaimes from cardiology was contacted for an STEMI. Due to poor mentation and multiorgan failure patient was deemed not a candidate for cardiac catheterization. Cannot use aspirin or heparin due to platelet count of 60,000 INR of 2.3. Other abnormal labs included transaminitis and elevated CPK. I evaluated the patient in the emergency department. He is severely encephalopathic appears critical, tachypneic but protecting airway. He is not able to say his name or mouth any words. He continues to move his head side to side but not communicative. I have added additional 2 L normal saline bolus, give 2 A of bicarb. Check ABG. Broad-spectrum antibiotics with vancomycin 1 dose and renally dosed Zosyn. Patient is very critically ill and has multiorgan failure, overall prognosis appears very poor. 10/04: This morning patient is not on any pressors. He is awake, agitated at times requiring restraints. He is saying incomprehensible words. T-max of 99.1. Urine output is minimal. 10/05: No events over the night. T-max of 98.4. Patient's mental status remains unchanged. Lethargic but easily arousable, not following any commands, saying incomprehensible words. Urine output of 525 mL's over the last 24 hours. Patient identified as Pablo Slater, 82-year-old gentleman. Still no family contact yet. 10/06: Over the night, patient developed worsening hypoxia with periods of apnea therefore he was intubated and now he is mechanically ventilated. This morning he is on no sedation, thrashing in bed, not following any commands. T-max of 99.9. Urine output is low, 200 mL's over the last 24 hours. Low blood pressure over the night noted, 1000 mL's of LR bolus given map remains borderline low normal. Morning chest x-ray reviewed, bibasilar infiltrates, right greater than left. ET tube is in good position. ROS -unobtainable due to patient's mental status SUBJECTIVE: 10/07: Low-grade temperatures overnight. Remains on norepinephrine drip at 2 mcg /min. Arousable on fentanyl drip at 100 mg an hour. No bowel movement. 10/08 Patient remains intubated and sedated with Fentanyl infusion. Afebrile. On Levophed 1 tu. Renal function is improving with Cr: 1.51 from 1.71. 10/09 No events overnight intubated and sedated with Fentanyl infusion on Levophed 2 mics. T:99.7. 10/10 Patient remains intubated and sedated with Fentanyl drip. s/p right sided thoracentesis yesterday with removal 1.5L (transudative fluid) On Levophed 2 mics. 10/11 : Remains sedated, orally intubated on mechanical ventilation. Objective Vital Signs / I&O: Vital Signs 10/10/17 15:00 10/10/17 15:30 10/10/17 16:00 Temperature 99.5 F 99.7 F H Pulse Rate 88 93 H Respiratory Rate 16 16 17 Blood Pressure 97/66 L 106/72 Pulse Oximetry 98 98 10/10/17 17:00 10/10/17 18:00 10/10/17 19:00 Temperature 100.6 F H 100.6 F H 100.6 F H Pulse Rate 108 H 112 H 117 H Respiratory Rate 24 25 H 18 Blood Pressure 135/91 H 125/84 128/85 Pulse Oximetry 72 L 98 10/10/17 19:35 10/10/17 20:00 10/10/17 20:12 Temperature 100.6 F H Pulse Rate 102 H 107 H Respiratory Rate 19 16 20 Blood Pressure 111/70 Pulse Oximetry 95 95 10/10/17 20:15 08/29/18 20:30 10/10/17 20:45 Temperature Pulse Rate Respiratory Rate Blood Pressure 111/77 101/65 110/71 Pulse Oximetry 10/10/17 21:00 10/10/17 22:00 10/10/17 23:00 Temperature 100.2 F H 99.9 F H 99.9 F H Pulse Rate 95 H 96 H 95 H Respiratory Rate 15 15 15 Blood Pressure 105/69 100/66 99/66 L Pulse Oximetry 98 88 L 10/11/17 00:00 10/11/17 00:35 10/11/17 01:00 Temperature 99.9 F H 99.9 F H Pulse Rate 91 H 88 Respiratory Rate 15 15 15 Blood Pressure 97/67 L 96/66 L Pulse Oximetry 99 99 99 10/11/17 02:00 10/11/17 03:00 10/11/17 03:48 Temperature 99.9 F H 99.7 F H Pulse Rate 96 H 93 H 95 H Respiratory Rate 15 15 18 Blood Pressure 104/71 106/70 Pulse Oximetry 91 L 95 10/11/17 04:00 10/11/17 04:34 10/11/17 05:00 Temperature 99.7 F H 99.5 F Pulse Rate 92 H 93 H Respiratory Rate 15 15 15 Blood Pressure 102/68 105/75 Pulse Oximetry 99 98 98 10/11/17 06:00 10/11/17 08:00 10/11/17 08:49 Temperature 99.5 F 99.7 F H Pulse Rate 85 81 Respiratory Rate 15 15 15 Blood Pressure 93/65 L 92/61 L Pulse Oximetry 95 97 96 10/11/17 10:00 10/11/17 12:00 10/11/17 12:06 Temperature 100.0 F H 100 F H Pulse Rate 83 86 Respiratory Rate 15 15 15 Blood Pressure 91/62 L 92/62 L Pulse Oximetry 100 100 Intake & Output 10/10/17 10/11/17 10/11/17 18:59 06:59 18:59 Intake Total 1360.5 / 1360.5 633 / 633 250 / 250 Output Total 325 / 325 400 / 400 Balance 1035.5 / 1035.5 233 / 233 250 / 250 Weight 73.7 kg Intake: IV 612.5 / 612.5 250 / 250 250 / 250 Zosyn 3.375 GM Premix 50 ML @ 100 / 100 150 / 150 100 mls/hr IV.SIG Q6H [facility] Rx#: [id number] KCl 20 mEq Premix Inj 20 meq In 100 / 100 100 ml @ 50 mls/hr IV.SIG Q2H PRN Rx#:[id number] Vancomycin Inj 1,250 MG In NS 262.5 / 262.5 Inj 250 ML @ 250 mls/hr IV.SIG Q24H [facility] Rx#:[id number] fentaNYL 10 mcg/mL Premix Drip 250 / 250 250 / 250 2,500 mcg In 250 ml @ 50 MCG/HR 5 mls/hr IV.SIG TITRATE PRN Rx #:[id number] Oral 0 / 0 Tube Feeding 508 / 508 283 / 283 Tube Irrigant 100 / 100 Water Bolus Amount 240 / 240 Output: Urine Amount (Catheter) 325 / 325 400 / 400 Indwelling Urethral Catheter 325 / 325 400 / 400 Other: Date of Last Bowel Movement 10/09/17 10/09/17 # Bowel Movements 0 Result Diagrams: 10/11/17 05:00 10/11/17 05:00 Objective Remarks: GENERAL: Elderly gentleman, poorly nourished, very deconditioned, ill-appearing , intubated HEENT: Pupils are equal and reactive. Sclerae anicteric. Neck supple without rigidity. Orally intubated. Neck veins are nondistended. No carotid bruit. CHEST: Scattered coarse breath sounds bilateral, decreased breath sounds at bases but overall improved air entry. No wheezes. CARDIOVASCULAR: Regular heart sounds, without murmurs. ABDOMEN: Soft, nontender, nondistended. Bowel sounds are decreased. No hepatomegaly or splenomegaly appreciated. MUSCULOSKELETAL: Remains tepid. 2+ peripheral pitting edema. Pulses are present. Dusky discoloration of the plantar surface of the toes. NEUROLOGICAL: Patient is intubated, lethargic, arousable by opening eyes and withdrawing to bilateral upper and lower extremities but he does not follow any commands. Grimaces to pain. Pupils remain equal and reactive. Assessment and Plan - Assessment and Plan Plan: 1. Acute hypoxic respiratory failure -now intubated and mechanically ventilated 2. Acute encephalopathy, likely toxic metabolic -probably some degree of dementia at base, no improvement so far 3. Acute PA -followed by cardiology 4. Severe sepsis 5. Lactic/metabolic acidosis -lactic acid remains elevated despite adequate fluid resuscitation, likely in the setting of liver insufficiency 6. Bibasilar pneumonia 7. Transaminitis -liver enzymes are slowly trending down 8. JAVON -creatinine remains elevated and urine output remains low 9. Hypernatremia -slowly improving 10. Coagulopathy with thrombocytopenia -worsening 11. L2 compression deformity/acuity unknown 12. Moderate to large right-sided effusion with small left pleural effusion Plan Neuro: On Fentanyl and infusion for sedation. Daily sedation vacation. 10/06 CT brain: No evidence of acute infarct, hemorrhage, mass or edema. neuro is following- Dr. Benites MRI brain: No acute infarct, acute hemorrhage, midline shift or extra- axial fluid collections. Mild cerebral atrophy. 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 Minimal small vessel ischemic changes within the periventricular and subcortical white matter bilaterally. Pulm: Continue with vent support keep sats >92% Bronchodilators, ICU vent bundle. s/p right sided thoracentesis with removal 1.5L ( Transudative fluid) CV: Monitor HR and BP kep MAP>65mmHg, on Levophed 2 tu Lactic acid trending down 2.3 10/07 from 5.9 No aspirin or heparin due to worsening thrombocytopenia and coagulopathy No statin due to elevated liver enzymes Follow up on echo results : Monitor renal function, I/O's, electrolytes replacement as needed. ID: Continue abx(Vanco and piperacillin/tazobactam). BC, urine cx 10/03: No growth, sputum cx pending Followup on fluid cx GI: On Prevacid 30mg daily. Monitor LFT's, Liver ultrasound reviewed -no gallstones or biliary tract obstruction. On Glucerna 1.5 with goal rate 50ml/hr Heme: Monitor CBC, Coags, s/p Transfuse 1 packed leuko-reduced platelets, and 1 cryo due to worsening thrombocytopenia on 10/07 s/p Transfuse 1u FFP and 2u PLT 10/09 for thoracentesis Endo: SSI for glycemic control DVT prophylaxis with SCDs and GI prophylaxis with lansoprazole Palliative care is following Lines: Right IJ CVP 10/06 Condition critical Prognosis poor. Time spent on critical care excluding procedures 30 minutes
[2017-10-11] MEDS: Vancomycin Inj 1,250 MG in Sodium Chlor 0.9% Inj 250 ML IV.SIG SCH (15:59)
[2017-10-11] MEDS: Acetaminophen 325 MG Tablet NG/OG PRN (21:15)
[2017-10-12] MEDS: Insulin NovoLOG Aspart Correctional Sugar Inj SQ SCH ×4 (02:16→17:14)
[2017-10-12] MEDS: Piperacil/Tazo 3.375 GM Premix 50 ML IV.SIG SCH ×2 (04:28→08:53)
[2017-10-12 06:09] LABS: Baso % (Auto) 0.3 % (0.0-2.0); Eos % (Auto) 0.1 % (0.0-4.0); Hematocrit 40.1 % (39.0-51.0); Hemoglobin 13.1 gm/dL (13.0-17.0); Lymph # (Auto) 0.3 th/mm3 (1.0-4.8); Lymph % (Auto) 2.6 % (9.0-44.0); Mean Corpuscular HGB Conc 32.6 % (32.0-36.0); Mean Corpuscular Hemoglobin 31.1 pg (27.0-34.0); Mean Corpuscular Volume 95.4 fL (80.0-100.0); Mean Platelet Volume 10.6 fL (7.0-11.0); Mono # (Auto) 0.8 th/mm3 (0.0-0.9); Mono % (Auto) 7.2 % (0.0-8.0); Neut # (Auto) 9.7 th/mm3 (1.8-7.7); Neut % (Auto) 89.8 % (16.0-70.0); Platelet Count 71 th/mm3 (150-450); Red Cell Distribution Width 17.7 % (11.6-17.2); White Blood Count 10.8 th/mm3 (4.0-11.0)
[2017-10-12 06:13] LABS: INR 1.6 Ratio; Prothrombin Time 15.7 sec (9.8-11.6)
[2017-10-12 07:03] LABS: Alanine Aminotransferase 384 U/L (12-78); Albumin 1.9 g/dL (3.4-5.0); Alkaline Phosphatase 73 U/L (45-117); Anion Gap 11 meq/L (5-15); Aspartate Aminotransferase 106 U/L (15-37); Blood Urea Nitrogen 86 mg/dL (7-18); Calcium 7.6 mg/dL (8.5-10.1); Chloride 108 meq/L (98-107); Glomerular Filtration Rate 41 mL/min (>89); Glucose,Random 121 mg/dL (74-106); Magnesium 3.1 mg/dL (1.5-2.5); Phosphorus 3.4 mg/dL (2.5-4.9); Potassium 4.1 meq/L (3.5-5.1); Sodium 148 meq/L (136-145)
--- NOTE | 2017-10-12 07:35 | P.PNCC ---
Subjective Subjective Remarks/Hospital Course: Patient is an elderly male with unknown past medical history who was found on the floor of his apartment with door open. Apparently neighbors checked on him and found him unresponsive on the floor. Patient was brought to the emergency department and underwent extensive workup to rule out trauma. CT of the head showed moderate to severe atrophy, CT of the chest showed moderate right-sided and small left effusion. 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 X-ray of his right elbow showed a possible olecranon spur discontinuity. Multiple lab abnormalities white count was 12.8 with 87% neutrophils platelet count 60 INR was 2.3. UA showed evidence of UTI, patient received a dose of cefepime for severe sepsis. Also his troponin was elevated at 6.8, lactic acid was 8.3 BUN 67 creatinine 2.71. Patient received 2 L normal saline boluses. Dr. Jaimes from cardiology was contacted for an STEMI. Due to poor mentation and multiorgan failure patient was deemed not a candidate for cardiac catheterization. Cannot use aspirin or heparin due to platelet count of 60,000 INR of 2.3. Other abnormal labs included transaminitis and elevated CPK. I evaluated the patient in the emergency department. He is severely encephalopathic appears critical, tachypneic but protecting airway. He is not able to say his name or mouth any words. He continues to move his head side to side but not communicative. I have added additional 2 L normal saline bolus, give 2 A of bicarb. Check ABG. Broad-spectrum antibiotics with vancomycin 1 dose and renally dosed Zosyn. Patient is very critically ill and has multiorgan failure, overall prognosis appears very poor. 10/04: This morning patient is not on any pressors. He is awake, agitated at times requiring restraints. He is saying incomprehensible words. T-max of 99.1. Urine output is minimal. 10/05: No events over the night. T-max of 98.4. Patient's mental status remains unchanged. Lethargic but easily arousable, not following any commands, saying incomprehensible words. Urine output of 525 mL's over the last 24 hours. Patient identified as Pablo Slater, 82-year-old gentleman. Still no family contact yet. 10/06: Over the night, patient developed worsening hypoxia with periods of apnea therefore he was intubated and now he is mechanically ventilated. This morning he is on no sedation, thrashing in bed, not following any commands. T-max of 99.9. Urine output is low, 200 mL's over the last 24 hours. Low blood pressure over the night noted, 1000 mL's of LR bolus given map remains borderline low normal. Morning chest x-ray reviewed, bibasilar infiltrates, right greater than left. ET tube is in good position. ROS -unobtainable due to patient's mental status SUBJECTIVE: 10/07: Low-grade temperatures overnight. Remains on norepinephrine drip at 2 mcg /min. Arousable on fentanyl drip at 100 mg an hour. No bowel movement. 10/08 Patient remains intubated and sedated with Fentanyl infusion. Afebrile. On Levophed 1 tu. Renal function is improving with Cr: 1.51 from 1.71. 10/09 No events overnight intubated and sedated with Fentanyl infusion on Levophed 2 mics. T:99.7. 10/10 Patient remains intubated and sedated with Fentanyl drip. s/p right sided thoracentesis yesterday with removal 1.5L (transudative fluid) On Levophed 2 mics. 10/11 : Remains sedated, orally intubated on mechanical ventilation. 10/12 Patient remains intubated and on Fenantyl infusion for sedation. T:101.5 last night. Objective Vital Signs / I&O: Vital Signs 10/11/17 08:00 10/11/17 08:49 10/11/17 10:00 Temperature 99.7 F H 100.0 F H Pulse Rate 81 83 Respiratory Rate 15 15 15 Blood Pressure 92/61 L 91/62 L Pulse Oximetry 97 96 100 10/11/17 12:00 10/11/17 12:06 10/11/17 14:00 Temperature 100 F H 100.6 F H Pulse Rate 86 91 H Respiratory Rate 15 15 15 Blood Pressure 92/62 L 94/62 L Pulse Oximetry 100 10/11/17 16:57 10/11/17 19:50 10/11/17 20:00 Temperature Pulse Rate 107 H Respiratory Rate 17 15 Blood Pressure Pulse Oximetry 96 100 97 10/11/17 22:00 10/11/17 22:01 10/11/17 22:20 Temperature 101.5 F H Pulse Rate 97 H 96 H Respiratory Rate 15 15 Blood Pressure 104/66 Pulse Oximetry 96 96 10/11/17 23:00 10/12/17 00:00 10/12/17 01:00 Temperature 101.1 F H 100.8 F H 100.9 F H Pulse Rate 90 80 82 Respiratory Rate 15 15 17 Blood Pressure 96/66 L 90/60 L 94/56 L Pulse Oximetry 96 95 94 L 10/12/17 01:48 10/12/17 02:00 10/12/17 03:00 Temperature 100.9 F H 100.9 F H Pulse Rate 90 86 Respiratory Rate 16 15 15 Blood Pressure 96/69 L 94/62 L Pulse Oximetry 95 92 L 10/12/17 04:00 10/12/17 05:00 10/12/17 05:01 Temperature 101.1 F H 100.8 F H Pulse Rate 88 84 Respiratory Rate 15 16 15 Blood Pressure 101/69 98/70 L Pulse Oximetry 95 94 L 95 10/12/17 06:00 Temperature 100.8 F H Pulse Rate 81 Respiratory Rate 15 Blood Pressure 106/66 Pulse Oximetry 94 L Intake & Output 10/11/17 10/12/17 10/12/17 18:59 06:59 18:59 Intake Total 250 / 250 944.5 / 944.5 Output Total 450 / 450 Balance 250 / 250 494.5 / 494.5 Weight 74.1 kg Intake: IV 250 / 250 412.5 / 412.5 Zosyn 3.375 GM Premix 50 ML @ 0 / 0 150 / 150 100 mls/hr IV.SIG Q6H [facility] Rx#: [id number] Vancomycin Inj 1,250 MG In NS 262.5 / 262.5 Inj 250 ML @ 250 mls/hr IV.SIG Q24H [facility] Rx#:[id number] fentaNYL 10 mcg/mL Premix Drip 250 / 250 2,500 mcg In 250 ml @ 50 MCG/HR 5 mls/hr IV.SIG TITRATE PRN Rx #:[id number] Oral 0 / 0 Tube Feeding 482 / 482 Tube Irrigant 50 / 50 Output: Urine Amount (Catheter) 450 / 450 Indwelling Urethral Catheter 450 / 450 Other: Date of Last Bowel Movement 10/09/17 10/09/17 Result Diagrams: 10/12/17 05:00 10/12/17 05:00 Other Results: Laboratory Results - last 12 hr 10/12/17 10/12/17 10/12/17 00:48 05:00 05:00 WBC 10.8 RBC 4.20 L Hgb 13.1 Hct 40.1 MCV 95.4 MCH 31.1 MCHC 32.6 RDW 17.7 H Plt Count 71 L MPV 10.6 Prelim Diff (Auto) Slide review pending Neut % (Auto) 89.8 H Lymph % (Auto) 2.6 L [place] % (Auto) 7.2 Eos % (Auto) 0.1 Baso % (Auto) 0.3 Neut # (Auto) 9.7 H Lymph # (Auto) 0.3 L [place] # (Auto) 0.8 Eos # (Auto) 0.0 Baso # (Auto) 0.0 Differential Comment . PT INR Sodium 148 H Potassium 4.1 Chloride 108 H Carbon Dioxide 29.0 Anion Gap 11 BUN 86 H Creatinine 1.64 H Estimated GFR 41 L POC Glucose 138 H Random Glucose 121 H Calcium 7.6 L Phosphorus 3.4 D Magnesium 3.1 H Total Bilirubin 10.2 H AST 106 H ALT 384 H Alkaline Phosphatase 73 Total Protein 5.0 L Albumin 1.9 L 10/12/17 05:00 WBC RBC Hgb Hct MCV MCH MCHC RDW Plt Count MPV Prelim Diff (Auto) Neut % (Auto) Lymph % (Auto) [place] % (Auto) Eos % (Auto) Baso % (Auto) Neut # (Auto) Lymph # (Auto) [place] # (Auto) Eos # (Auto) Baso # (Auto) Differential Comment PT 15.7 H INR 1.6 Sodium Potassium Chloride Carbon Dioxide Anion Gap BUN Creatinine Estimated GFR POC Glucose Random Glucose Calcium Phosphorus Magnesium Total Bilirubin AST ALT Alkaline Phosphatase Total Protein Albumin Imaging: Elbow X-Ray 10/03/17 18:31 CONCLUSION: There is discontinuity of the tip of a small olecranon spur without soft tissue swelling. Cannot exclude a fracture. Recommend correlation with clinical exam for point tenderness in this area. Hip X-Ray 10/03/17 18:31 CONCLUSION: No fracture seen. Lumbar Spine X-Ray 10/03/17 18:31 CONCLUSION: 60% anterior compression fracture of L2. No retropulsed fragments seen. Cervical Spine CT 10/03/17 18:35 CONCLUSION: 1. No evidence of compression deformity, fracture, or spondylolisthesis. 2. Advanced hypertrophic degenerative changes in the facet joints, more severe on the right. Abdomen/Pelvis CT 10/03/17 18:38 CONCLUSION: 1. Bilateral pleural effusions, right greater than left. 2. Nonobstructing 4 mm stone in the right renal collecting system. 3. 3.7 cm infrarenal abdominal aortic aneurysm. 4. Small fat-containing left inguinal hernia. Chest CT 10/03/17 18:38 CONCLUSION: 1. Large right and small left pleural effusion. 2. No fracture seen. No evidence of pneumothorax. Liver Ultrasound 10/04/17 00:00 CONCLUSION: 1. No evidence of gallstones or biliary tract obstruction. 2. There is a cyst along the upper pole the right kidney measuring 3 cm. 3. Bilateral pleural effusions. Head CT 10/06/17 00:00 CONCLUSION: 1. Stable evaluation the brain. 2. No evidence of acute infarct, hemorrhage, mass or edema. . Head MRI 10/09/17 00:00 CONCLUSION: 1. No acute infarct, acute hemorrhage, midline shift or extra-axial fluid collections. 2. Mild cerebral atrophy. 3. 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 4. Minimal small vessel ischemic changes within the periventricular and subcortical white matter bilaterally. Chest X-Ray 10/11/17 00:00 CONCLUSION: No significant change. Objective Remarks: GENERAL: Elderly gentleman, poorly nourished, very deconditioned, ill-appearing , intubated HEENT: Pupils are equal and reactive. Sclerae anicteric. Neck supple without rigidity. Orally intubated. Neck veins are nondistended. No carotid bruit. CHEST: Scattered coarse breath sounds bilateral, decreased breath sounds at bases but overall improved air entry. No wheezes. CARDIOVASCULAR: Regular heart sounds, without murmurs. ABDOMEN: Soft, nontender, nondistended. Bowel sounds are decreased. No hepatomegaly or splenomegaly appreciated. MUSCULOSKELETAL: Remains tepid. 2+ peripheral pitting edema. Pulses are present. Dusky discoloration of the plantar surface of the toes. NEUROLOGICAL: Patient is intubated, lethargic, arousable by opening eyes and withdrawing to bilateral upper and lower extremities but he does not follow any commands. Grimaces to pain. Pupils remain equal and reactive. Assessment and Plan - Assessment and Plan Plan: 1. Acute hypoxic respiratory failure -now intubated and mechanically ventilated 2. Acute encephalopathy, likely toxic metabolic -probably some degree of dementia at base, no improvement so far 3. Acute ND -followed by cardiology 4. Severe sepsis 5. Lactic/metabolic acidosis -lactic acid remains elevated despite adequate fluid resuscitation, likely in the setting of liver insufficiency 6. Bibasilar pneumonia 7. Transaminitis -liver enzymes are slowly trending down 8. JAVON -creatinine remains elevated and urine output remains low 9. Hypernatremia -slowly improving 10. Coagulopathy with thrombocytopenia -worsening 11. L2 compression deformity/acuity unknown 12. Moderate to large right-sided effusion with small left pleural effusion Plan Neuro: On Fentanyl infusion for sedation. Daily sedation vacation. 10/06 CT brain: No evidence of acute infarct, hemorrhage, mass or edema. neuro is following- Dr. Benites MRI brain: No acute infarct, acute hemorrhage, midline shift or extra- axial fluid collections. Mild cerebral atrophy. 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 Minimal small vessel ischemic changes within the periventricular and subcortical white matter bilaterally. Pulm: Continue with vent support keep sats >92% Bronchodilators, ICU vent bundle. s/p right sided thoracentesis with removal 1.5L ( Transudative fluid) CV: Monitor HR and BP kep MAP>65mmHg, on Levophed 2 tu Lactic acid trending down 2.3 10/07 from 5.9 No aspirin or heparin due to worsening thrombocytopenia and coagulopathy No statin due to elevated liver enzymes Follow up on echo results : Monitor renal function, I/O's, electrolytes replacement as needed. ID: Continue abx(Vanco and piperacillin/tazobactam). BC, urine cx 10/03: No growth, Followup on fluid, sputum cx 10/09: NGTD Panculture today( Blood, sputum, urine) ID eval GI: On Prevacid 30mg daily. Monitor LFT's, Hepatitis profile negative Liver ultrasound reviewed -no gallstones or biliary tract obstruction. On Glucerna 1.5 with goal rate 50ml/hr GI eval re hyperbilirubinemia/elevated LFT's Heme: Monitor CBC, Coags, s/p Transfuse 1 packed leuko-reduced platelets, and 1 cryo due to worsening thrombocytopenia on 10/07 s/p Transfuse 1u FFP and 2u PLT 10/09 for thoracentesis Endo: SSI for glycemic control DVT prophylaxis with SCDs and GI prophylaxis with lansoprazole Palliative care is following Lines: Right IJ CVP 10/06 Condition critical Prognosis poor. Time spent on critical care excluding procedures 30 minutes
[2017-10-12 08:40] LABS: Platelet Morphology Normal (Normal)
[2017-10-12] MEDS: Senna/Docusate Sodium 8.6/50 MG Tablet PO SCH ×2 (08:52→20:37)
[2017-10-12] MEDS: Hypromellose 0.3% Opth Gel 10 GM Bottle EACH EYE SCH ×2 (08:52→20:38)
[2017-10-12] MEDS: fentaNYL 10 mcg/mL Premix Drip 2,500 MCG/250 ML BAG IV.SIG PRN (09:08)
--- NOTE | 2017-10-12 10:03 | P.CONID ---
History of Present Illness Service: Infectious disease Consult date: 10/12/17 Requesting Physician: Thomas Olsen Reason for Consult: Evaluate patient with persistent fevers Primary Care Provider: UNKNOWN Chief Complaint: Altered mental status, septic shock History of Present Illness: Patient seen and examined. Records reviewed. Patient is an 82-year-old male, who was found unresponsive on the floor in his apartment. He was admitted October 03. Initial evaluation showed CT of the head with atrophy and no acute findings. CT of the chest with bilateral effusion. CT of the abdomen did not show any abscess, and it did show a compression fracture and L2. He also had an infrarenal abdominal aortic aneurysm that is about 3.7 cm. His white count then was 12,000, and his platelets were low. Urinalysis showed some very mild pyuria. He also had an elevated troponin and elevated lactic acid as well as creatinine. Patient ruled in for an CT, but cardiology felt that he is not a candidate for cardiac catheterization. He also had abnormal liver function tests. Patient was started on empiric antibiotics for sepsis and was given vancomycin and Zosyn. His blood cultures came back negative as well as a urine culture. On October 05 , he had increased respiratory distress and ended up getting intubated, and he has been on the vent since. He had a central line put in in his right IJ. Patient also was started on pressors. Since October 10, he started having fevers. Repeat blood cultures on October 09 and sputum cultures were okay. Patient also had undergone thoracenteses, and the fluid looks more transudative. He is currently off pressors. Remains on the vent. His LFTs remain elevated. He has had ultrasound of the abdomen which was okay. His chest x-ray is still showing bilateral effusions, worse on the left side but it is not worsening. He continues to have fevers. He remains on vancomycin and Zosyn. Infectious disease consultation has been requested to evaluate the patient. Review of Systems unobtainable due to endotracheal tube, unobtainable due to mental status PMFSH - History History Provided By: Medical Record - Medical / Surgical Hx Neg / Unobtainable Medical Problems Denied: Unable to Obtain (Unable to obtain family medical history secondary to patient's altered mental status; no known family) - Medical History Medical History: Medical History (Last Reviewed 10/12/17 @ 09:53 by Janeen Estes MD) Abdominal aortic aneurysm (Acute) Hypertension (Acute) - Surgical History Surgical History: Surgical History (Last Reviewed 10/12/17 @ 09:53 by Janeen Estes MD) History of tonsillectomy and adenoidectomy - Tobacco History Smoking Status: Unknown if ever smoked - Alcohol History How Often Do You Have a Drink Containing Alcohol: Unable to Obtain - Substance Use History Substance History: Unable to Obtain - Immunization History Tetanus Immunization: Unable to Assess Medications and Allergies Active Medications: Active Medications Acetaminophen (Tylenol) 650 mg NG/OG Q8H PRN PRN Reason: Fever >101f Last Admin: 10/11/17 21:15 Dose: 650 mg Al Hydroxide/Mg Hydroxide (Milk Of Magnmandy Liq) 30 ml PO Q12H PRN PRN Reason: Mild Constipation Artificial Tears (Genteal Severe Dry Eye Relief 0.3% Opth Gel) 1 drops EACH EYE BID JIGNA Last Admin: 10/12/17 08:52 Dose: 1 drops Dextrose (D50w Vial) 50 ml IV.PUSH UNSCH PRN PRN Reason: PER HYPOGLYCEMIA PROTOCOL Glucagon (Glucagon Inj) 1 mg OTHER PRN PRN PRN Reason: for Hypoglycemia Protocol Fentanyl (Fentanyl 10 Mcg/Ml Premix Drip) 2,500 mcg in 250 mls @ 5 mls/hr IV.SIG TITRATE PRN; Protocol PRN Reason: Per Protocol Last Admin: 10/12/17 09:08 Dose: 100 mcg/hr, 10 mls/hr Norepinephrine Bitartrate (Levophed-Dextrose 4 Mg/250 Ml Drip) 4 mg in 250 mls @ 7.5 mls/hr IV.SIG TITRATE PRN; Protocol PRN Reason: Per Protocol Last Titration: 10/11/17 21:11 Dose: 0 mcg/min, 0 mls/hr Magnesium Sulfate Inj 2 gm/ (Sodium Chloride) 100 mls @ 50 mls/hr IV.SIG UNSCH PRN PRN Reason: For Magnesium 1.2 - 1.6 mg/dL Potassium Chloride (Kcl 40 Meq Premix Inj) 40 meq in 100 mls @ 25 mls/hr IV.SIG Q2H PRN PRN Reason: For Potassium 2.8 - 3.2 mEq/L Potassium Chloride (Kcl 20 Meq Premix Inj) 20 meq in 100 mls @ 50 mls/hr IV.SIG Q2H PRN PRN Reason: For Potassium 3.3 - 3.5 mEq/L Last Infusion: 10/10/17 19:26 Dose: Infused Potassium Chloride (Kcl 40 Meq Premix Inj) 40 meq in 100 mls @ 25 mls/hr IV.SIG UNSCH PRN PRN Reason: For Potassium 3.3 - 3.5 mEq/L Potassium Phosphate 30 mmol/ (Sodium Chloride) 260 mls @ 42 mls/hr IV.SIG UNSCH PRN PRN Reason: SEE LABEL COMMENTS Magnesium Sulfate Inj 4 gm/ (Sodium Chloride) 100 mls @ 50 mls/hr IV.SIG UNSCH PRN PRN Reason: For Magnesium 0.9 - 1.1 mg/dL Potassium Chloride (Kcl 20 Meq Premix Inj) 20 meq in 100 mls @ 50 mls/hr IV.SIG Q2H PRN PRN Reason: For Potassium 2.8 - 3.2 mEq/L Sodium Phosphate 30 mmol/ (Sodium Chloride) 260 mls @ 42 mls/hr IV.SIG UNSCH PRN PRN Reason: For Phosphorus < 2.5 mg/dL Levofloxacin/Dextrose (Levaquin 500 Mg Premix Inj) 500 mg in 100 mls @ 100 mls/ hr IV.SIG Q48H JIGNA Insulin Aspart (Novolog Insulin Correctional Sugar Inj) 0 unit SQ Q6HR JIGNA; Protocol Last Admin: 10/12/17 06:56 Dose: Not Given Lactulose (Lactulose Liq) 30 ml PO DAILY PRN PRN Reason: SEVERE CONSITIPATION Lansoprazole (Prevacid Solutab) 30 mg NG/OG DAILY [facility] Last Admin: 10/12/17 08:53 Dose: 30 mg Magnesium Oxide (Mag-Ox) 800 mg PO UNSCH PRN PRN Reason: For Magnesium 1.2 - 1.6 mg/dL Miscellaneous Information ([facility] Ordered Lab Info) 0 each OTHER ONCE ONE Stop: 10/12/17 15:46 Potassium Bicarb/Potassium Chloride (K-Lyte Cl Eff) 50 meq PO UNSCH PRN PRN Reason: For Potassium 3.3 - 3.5 mEq/L Potassium Phosphate (K-Phos Original) 2,000 mg PO Q4H PRN PRN Reason: Phosphorus Less Than 2.5 mg/dL Potassium Phosphate (K-Phos Original) 2,000 mg PO UNSCH PRN PRN Reason: SEE LABEL COMMENTS Senna/Docusate Sodium (Brigette-Colace) 1 tab PO BID [facility] Last Admin: 10/12/17 08:52 Dose: 1 tab Sennosides (Senokot) 17.2 mg PO Q12H PRN PRN Reason: Moderate Constipation Sodium Chloride (Ns Flush) 2 ml IV.FLUSH BID [facility] Last Admin: 10/12/17 08:53 Dose: 2 ml Sodium Chloride (Ns Flush) 2 ml IV.FLUSH PRN PRN PRN Reason: FLUSH AFTER USING IV ACCESS Terbutaline Sulfate (Brethine Inj) 1 mg SQ UNSCH PRN PRN Reason: For Extravasation Allergies Allergy/AdvReac Type Severity Reaction Status Date / Time No Allergy Information Allergy Unverified 10/03/17 18:31 Available Home Medications Medication Instructions Recorded Confirmed Type Unable to Obtain Home Meds 10/03/17 10/03/17 History Exam Vital signs: Vital Signs 10/11/17 10:00 10/11/17 12:00 10/11/17 12:06 Temperature 100.0 F H 100 F H Pulse Rate 83 86 Respiratory Rate 15 15 15 Blood Pressure 91/62 L 92/62 L Pulse Oximetry 100 100 10/11/17 14:00 10/11/17 16:57 10/11/17 19:50 Temperature 100.6 F H Pulse Rate 91 H Respiratory Rate 15 17 15 Blood Pressure 94/62 L Pulse Oximetry 96 100 10/11/17 20:00 10/11/17 22:00 10/11/17 22:01 Temperature 101.5 F H Pulse Rate 107 H 97 H 96 H Respiratory Rate 15 Blood Pressure 104/66 Pulse Oximetry 97 96 10/11/17 22:20 10/11/17 23:00 10/12/17 00:00 Temperature 101.1 F H 100.8 F H Pulse Rate 90 80 Respiratory Rate 15 15 15 Blood Pressure 96/66 L 90/60 L Pulse Oximetry 96 96 95 10/12/17 01:00 10/12/17 01:48 10/12/17 02:00 Temperature 100.9 F H 100.9 F H Pulse Rate 82 90 Respiratory Rate 17 16 15 Blood Pressure 94/56 L 96/69 L Pulse Oximetry 94 L 95 10/12/17 03:00 10/12/17 04:00 10/12/17 05:00 Temperature 100.9 F H 101.1 F H 100.8 F H Pulse Rate 86 88 84 Respiratory Rate 15 15 16 Blood Pressure 94/62 L 101/69 98/70 L Pulse Oximetry 92 L 95 94 L 10/12/17 05:01 10/12/17 06:00 10/12/17 08:03 Temperature 100.8 F H Pulse Rate 81 Respiratory Rate 15 15 15 Blood Pressure 106/66 Pulse Oximetry 95 94 L 93 L Intake & Output 10/11/17 10/12/17 10/12/17 18:59 06:59 18:59 Intake Total 250 / 250 944.5 / 944.5 250 / 250 Output Total 450 / 450 Balance 250 / 250 494.5 / 494.5 250 / 250 Weight 74.1 kg Intake: IV 250 / 250 412.5 / 412.5 250 / 250 Zosyn 3.375 GM Premix 50 ML @ 0 / 0 150 / 150 100 mls/hr IV.SIG Q6H JIGNA Rx#: [id number] Vancomycin Inj 1,250 MG In NS 262.5 / 262.5 Inj 250 ML @ 250 mls/hr IV.SIG Q24H JIGNA Rx#:[id number] fentaNYL 10 mcg/mL Premix Drip 250 / 250 250 / 250 2,500 mcg In 250 ml @ 50 MCG/HR 5 mls/hr IV.SIG TITRATE PRN Rx #:[id number] Oral 0 / 0 Tube Feeding 482 / 482 Tube Irrigant 50 / 50 Output: Urine Amount (Catheter) 450 / 450 Indwelling Urethral Catheter 450 / 450 Other: Date of Last Bowel Movement 10/09/17 10/09/17 Narrative: Physical Examination GENERAL: Patient is a thin, well-developed elderly male, awake, but not interacting, on the vent, not in respiratory distress. SKIN: Cool and dry. Has some purpura in BUE. Has cyanosis both feet, cold. HEAD: Atraumatic. Normocephalic. No temporal wasting, or tenderness. EYES: [place] conjunctiva. No petechia or hemorrhage. Pupils equal, round and reactive to light. Has scleral icterus and edema. No injection or drainage. EARS, NOSE AND THROAT: Nose without bleeding or purulent nasal discharge. Mucous membranes pink and moist. He is orally intubated. NECK: Trachea midline. Supple and not tender, no meningeal sign. RIJ central line looks ok CARDIOVASCULAR: Regular rate and rhythm. No murmurs, rubs or gallops heard RESPIRATORY: Coarse breath sounds bilaterally. Decreased breath sounds at the bases. No rales, wheezing or rhonchi ABDOMEN: Soft, no reaction to palpation, not guarding, nondistended. Bowel sounds present and normoactive. No organomegaly. EXTREMITIES: Has edema all extremities. Both hands are warm. Feet are cold with cyanosis both soles. NEUROLOGICAL: Eyes open, not following commands. No Babinski, no ankle clonus PSYCHIATRIC: Unable to assess LINE: No evidence of infection : Has alvarez in place, urine looks clear. Genitalia edematous Results - Labs CBC & Chem 7: 10/12/17 05:00 10/12/17 05:00 Labs: Laboratory Results - last 24 hr 10/11/17 10/11/17 10/12/17 13:17 18:28 00:48 WBC RBC Hgb Hct MCV MCH MCHC RDW Plt Count MPV Prelim Diff (Auto) Neut % (Auto) Lymph % (Auto) Gibson % (Auto) Eos % (Auto) Baso % (Auto) Neut # (Auto) Lymph # (Auto) Gibson # (Auto) Eos # (Auto) Baso # (Auto) WBC Differential Diff Scan Differential Comment Platelet Estimate Platelet Morphology PT INR Sodium Potassium Chloride Carbon Dioxide Anion Gap BUN Creatinine Estimated GFR POC Glucose 123 H 134 H 138 H Random Glucose Calcium Phosphorus Magnesium Total Bilirubin AST ALT Alkaline Phosphatase Total Protein Albumin 10/12/17 10/12/17 10/12/17 05:00 05:00 05:00 WBC 10.8 RBC 4.20 L Hgb 13.1 Hct 40.1 MCV 95.4 MCH 31.1 MCHC 32.6 RDW 17.7 H Plt Count 71 L MPV 10.6 Prelim Diff (Auto) Slide review pending Neut % (Auto) 89.8 H Lymph % (Auto) 2.6 L Gibson % (Auto) 7.2 Eos % (Auto) 0.1 Baso % (Auto) 0.3 Neut # (Auto) 9.7 H Lymph # (Auto) 0.3 L Gibson # (Auto) 0.8 Eos # (Auto) 0.0 Baso # (Auto) 0.0 WBC Differential . Diff Scan Auto diff confirmed Differential Comment . Platelet Estimate Low L Platelet Morphology Normal PT 15.7 H INR 1.6 Sodium 148 H Potassium 4.1 Chloride 108 H Carbon Dioxide 29.0 Anion Gap 11 BUN 86 H Creatinine 1.64 H Estimated GFR 41 L POC Glucose Random Glucose 121 H Calcium 7.6 L Phosphorus 3.4 D Magnesium 3.1 H Total Bilirubin 10.2 H AST 106 H ALT 384 H Alkaline Phosphatase 73 Total Protein 5.0 L Albumin 1.9 L Assessment and Plan - Plan Impression Fevers started 10/10 - has been on Vancomycin and Zosyn since 10/03 - sputum with NF - has line placed 10/06 - Bilirubin worsening - CXR with effusions; transudative - has alvarez - ?new infection - ?drug fever Respiratory failure, CHF CT Elevated LFT, ?due to shock, ?hepatic congestion Renal insufficiency, due to shock Recommendation Stop Vanco and Zosyn - he has been on this regimen x about 9 days Repeat BC - line and peripheral UA and C/S Levaquin empiric Follow LFT, may need repeat US if bilirubin starts increasing again; it is decreasing Follow temps Follow C/S and adjust Abx Monitor progress I will follow along with you Thank you for this consultation Dr Gilliland covering this weekend
--- NOTE | 2017-10-12 10:31 | MG ---
cc: Shubham Haider MD, PhD TECHNIQUE: A 17-channel EEG. Study number: [id number]. DESCRIPTION: The background rhythm is generally slow in the delta frequency of 3-4 Hz. Amplitude is about 20-30 mV. No lateralizing features identified. There are no epileptiform features identified. Photic results in a poor driving response. INTERPRETATION: Abnormal study consistent with a significant encephalopathy. Shubham Haider MD, PhD ANNETTE/rh , 10:08 AM , 10:11 AM
--- NOTE | 2017-10-12 11:46 | P.CONGI ---
History of Present Illness Consult date: 10/12/17 Consult reason: Elevated LFTs Chief complaint: Tox Met Enceph/JAVON/Dehydration/Septic Shock, MODS History of Present Illness: This is a 82 yo M who was brought to the hospital after being found unresponsive by his neighbor, currently admitted to ICU, mechanically ventilated and on low dose Fentanyl for sedation. On arrival, pt was awake but unable to say his name or mouth words, pt was protecting his airway, on day four of his admission he was noted to have worsening hypoxia and was therefore intubated. Pt has been followed by cardiology for NSTEMI, he was noted to not be a candidate for ischemic work up and they recommended medical management. Palliative care is following, was unable to find any family members, and therefore pts friend Madina has been made health care proxy and has made the decision to continue with aggressive goals. Our service has been consulted to evaluate pt for elevated LFTs. On admission pts LFTs were significantly elevated and have been trending down since except for his bilirubin which trended up but then is down some today. Unable to identify any risk factors. Given trend of LFTs likely secondary to shock liver and maybe in part due to rhabdomyolysis. <Amanda Jasso - Last Filed: 10/12/17 11:31> Review of Systems unobtainable due to mental status <Amanda Jasso - Last Filed: 10/12/17 11:31> [facility] - History History Provided By: Medical Record - Medical / Surgical Hx Neg / Unobtainable Medical Problems Denied: Unable to Obtain (Unable to obtain family medical history secondary to patient's altered mental status; no known family) - Medical History Medical History: Medical History (Last Reviewed 10/12/17 @ 09:53 by Janeen Estes MD) Abdominal aortic aneurysm (Acute) Hypertension (Acute) - Surgical History Surgical History: Surgical History (Last Reviewed 10/12/17 @ 09:53 by Janeen Estes MD) History of tonsillectomy and adenoidectomy - Tobacco History Smoking Status: Unknown if ever smoked - Alcohol History How Often Do You Have a Drink Containing Alcohol: Unable to Obtain - Substance Use History Substance History: Unable to Obtain - Immunization History Tetanus Immunization: Unable to Assess <Amanda Jasso - Last Filed: 10/12/17 11:31> - Medical History Medical History: Medical History (Last Reviewed 10/12/17 @ 09:53 by Janeen Estes MD) Abdominal aortic aneurysm (Acute) Hypertension (Acute) - Surgical History Surgical History: Surgical History (Last Reviewed 10/12/17 @ 09:53 by Janeen Estes MD) History of tonsillectomy and adenoidectomy <Selma Jimenez - Last Filed: 10/12/17 17:03> Medications and Allergies Active Medications: Active Medications Acetaminophen (Tylenol) 650 mg NG/OG Q8H PRN PRN Reason: Fever >101f Last Admin: 10/11/17 21:15 Dose: 650 mg Al Hydroxide/Mg Hydroxide (Milk Of Magnesia Liq) 30 ml PO Q12H PRN PRN Reason: Mild Constipation Artificial Tears (Genteal Severe Dry Eye Relief 0.3% Opth Gel) 1 drops EACH EYE BID JIGNA Last Admin: 10/12/17 08:52 Dose: 1 drops Dextrose (D50w Vial) 50 ml IV.PUSH UNSCH PRN PRN Reason: PER HYPOGLYCEMIA PROTOCOL Glucagon (Glucagon Inj) 1 mg OTHER PRN PRN PRN Reason: for Hypoglycemia Protocol Fentanyl (Fentanyl 10 Mcg/Ml Premix Drip) 2,500 mcg in 250 mls @ 5 mls/hr IV.SIG TITRATE PRN; Protocol PRN Reason: Per Protocol Last Admin: 10/12/17 09:08 Dose: 100 mcg/hr, 10 mls/hr Norepinephrine Bitartrate (Levophed-Dextrose 4 Mg/250 Ml Drip) 4 mg in 250 mls @ 7.5 mls/hr IV.SIG TITRATE PRN; Protocol PRN Reason: Per Protocol Last Titration: 10/11/17 21:11 Dose: 0 mcg/min, 0 mls/hr Magnesium Sulfate Inj 2 gm/ (Sodium Chloride) 100 mls @ 50 mls/hr IV.SIG UNSCH PRN PRN Reason: For Magnesium 1.2 - 1.6 mg/dL Potassium Chloride (Kcl 40 Meq Premix Inj) 40 meq in 100 mls @ 25 mls/hr IV.SIG Q2H PRN PRN Reason: For Potassium 2.8 - 3.2 mEq/L Potassium Chloride (Kcl 20 Meq Premix Inj) 20 meq in 100 mls @ 50 mls/hr IV.SIG Q2H PRN PRN Reason: For Potassium 3.3 - 3.5 mEq/L Last Infusion: 10/10/17 19:26 Dose: Infused Potassium Chloride (Kcl 40 Meq Premix Inj) 40 meq in 100 mls @ 25 mls/hr IV.SIG UNSCH PRN PRN Reason: For Potassium 3.3 - 3.5 mEq/L Potassium Phosphate 30 mmol/ (Sodium Chloride) 260 mls @ 42 mls/hr IV.SIG UNSCH PRN PRN Reason: SEE LABEL COMMENTS Magnesium Sulfate Inj 4 gm/ (Sodium Chloride) 100 mls @ 50 mls/hr IV.SIG UNSCH PRN PRN Reason: For Magnesium 0.9 - 1.1 mg/dL Potassium Chloride (Kcl 20 Meq Premix Inj) 20 meq in 100 mls @ 50 mls/hr IV.SIG Q2H PRN PRN Reason: For Potassium 2.8 - 3.2 mEq/L Sodium Phosphate 30 mmol/ (Sodium Chloride) 260 mls @ 42 mls/hr IV.SIG UNSCH PRN PRN Reason: For Phosphorus < 2.5 mg/dL Levofloxacin/Dextrose (Levaquin 500 Mg Premix Inj) 500 mg in 100 mls @ 100 mls/ hr IV.SIG Q48H JIGNA Insulin Aspart (Novolog Insulin Correctional Sugar Inj) 0 unit SQ Q6HR [facility]; Protocol Last Admin: 10/12/17 06:56 Dose: Not Given Lactulose (Lactulose Liq) 30 ml PO DAILY PRN PRN Reason: SEVERE CONSITIPATION Lansoprazole (Prevacid Solutab) 30 mg NG/OG DAILY [facility] Last Admin: 10/12/17 08:53 Dose: 30 mg Magnesium Oxide (Mag-Ox) 800 mg PO UNSCH PRN PRN Reason: For Magnesium 1.2 - 1.6 mg/dL Miscellaneous Information ([facility] Ordered Lab Info) 0 each OTHER ONCE ONE Stop: 10/12/17 15:46 Potassium Bicarb/Potassium Chloride (K-Lyte Cl Eff) 50 meq PO UNSCH PRN PRN Reason: For Potassium 3.3 - 3.5 mEq/L Potassium Phosphate (K-Phos Original) 2,000 mg PO Q4H PRN PRN Reason: Phosphorus Less Than 2.5 mg/dL Potassium Phosphate (K-Phos Original) 2,000 mg PO UNSCH PRN PRN Reason: SEE LABEL COMMENTS Senna/Docusate Sodium (Brigette-Colace) 1 tab PO BID [facility] Last Admin: 10/12/17 08:52 Dose: 1 tab Sennosides (Senokot) 17.2 mg PO Q12H PRN PRN Reason: Moderate Constipation Sodium Chloride (Ns Flush) 2 ml IV.FLUSH BID [facility] Last Admin: 10/12/17 08:53 Dose: 2 ml Sodium Chloride (Ns Flush) 2 ml IV.FLUSH PRN PRN PRN Reason: FLUSH AFTER USING IV ACCESS Terbutaline Sulfate (Brethine Inj) 1 mg SQ UNSCH PRN PRN Reason: For Extravasation <Amanda Jasso - Last Filed: 10/12/17 11:31> Active Medications: Active Medications Acetaminophen (Tylenol) 650 mg NG/OG Q8H PRN PRN Reason: Fever >101f Last Admin: 10/12/17 12:36 Dose: 650 mg Al Hydroxide/Mg Hydroxide (Milk Of Magnesia Liq) 30 ml PO Q12H PRN PRN Reason: Mild Constipation Artificial Tears (Genteal Severe Dry Eye Relief 0.3% Opth Gel) 1 drops EACH EYE BID [facility] Last Admin: 10/12/17 08:52 Dose: 1 drops Dextrose (D50w Vial) 50 ml IV.PUSH UNSCH PRN PRN Reason: PER HYPOGLYCEMIA PROTOCOL Glucagon (Glucagon Inj) 1 mg OTHER PRN PRN PRN Reason: for Hypoglycemia Protocol Fentanyl (Fentanyl 10 Mcg/Ml Premix Drip) 2,500 mcg in 250 mls @ 5 mls/hr IV.SIG TITRATE PRN; Protocol PRN Reason: Per Protocol Last Admin: 10/12/17 09:08 Dose: 100 mcg/hr, 10 mls/hr Norepinephrine Bitartrate (Levophed-Dextrose 4 Mg/250 Ml Drip) 4 mg in 250 mls @ 7.5 mls/hr IV.SIG TITRATE PRN; Protocol PRN Reason: Per Protocol Last Titration: 10/11/17 21:11 Dose: 0 mcg/min, 0 mls/hr Magnesium Sulfate Inj 2 gm/ (Sodium Chloride) 100 mls @ 50 mls/hr IV.SIG UNSCH PRN PRN Reason: For Magnesium 1.2 - 1.6 mg/dL Potassium Chloride (Kcl 40 Meq Premix Inj) 40 meq in 100 mls @ 25 mls/hr IV.SIG Q2H PRN PRN Reason: For Potassium 2.8 - 3.2 mEq/L Potassium Chloride (Kcl 20 Meq Premix Inj) 20 meq in 100 mls @ 50 mls/hr IV.SIG Q2H PRN PRN Reason: For Potassium 3.3 - 3.5 mEq/L Last Infusion: 10/10/17 19:26 Dose: Infused Potassium Chloride (Kcl 40 Meq Premix Inj) 40 meq in 100 mls @ 25 mls/hr IV.SIG UNSCH PRN PRN Reason: For Potassium 3.3 - 3.5 mEq/L Potassium Phosphate 30 mmol/ (Sodium Chloride) 260 mls @ 42 mls/hr IV.SIG UNSCH PRN PRN Reason: SEE LABEL COMMENTS Magnesium Sulfate Inj 4 gm/ (Sodium Chloride) 100 mls @ 50 mls/hr IV.SIG UNSCH PRN PRN Reason: For Magnesium 0.9 - 1.1 mg/dL Potassium Chloride (Kcl 20 Meq Premix Inj) 20 meq in 100 mls @ 50 mls/hr IV.SIG Q2H PRN PRN Reason: For Potassium 2.8 - 3.2 mEq/L Sodium Phosphate 30 mmol/ (Sodium Chloride) 260 mls @ 42 mls/hr IV.SIG UNSCH PRN PRN Reason: For Phosphorus < 2.5 mg/dL Levofloxacin/Dextrose (Levaquin 500 Mg Premix Inj) 500 mg in 100 mls @ 100 mls/ hr IV.SIG Q48H [facility] Last Admin: 10/12/17 12:14 Dose: 100 mls/hr Insulin Aspart (Novolog Insulin Correctional Sugar Inj) 0 unit SQ Q6HR [facility]; Protocol Last Admin: 10/12/17 12:18 Dose: Not Given Lactulose (Lactulose Liq) 30 ml PO DAILY PRN PRN Reason: SEVERE CONSITIPATION Lansoprazole (Prevacid Solutab) 30 mg NG/OG DAILY [facility] Last Admin: 10/12/17 08:53 Dose: 30 mg Magnesium Oxide (Mag-Ox) 800 mg PO UNSCH PRN PRN Reason: For Magnesium 1.2 - 1.6 mg/dL Potassium Bicarb/Potassium Chloride (K-Lyte Cl Eff) 50 meq PO UNSCH PRN PRN Reason: For Potassium 3.3 - 3.5 mEq/L Potassium Phosphate (K-Phos Original) 2,000 mg PO Q4H PRN PRN Reason: Phosphorus Less Than 2.5 mg/dL Potassium Phosphate (K-Phos Original) 2,000 mg PO UNSCH PRN PRN Reason: SEE LABEL COMMENTS Senna/Docusate Sodium (Brigette-Colace) 1 tab PO BID [facility] Last Admin: 10/12/17 08:52 Dose: 1 tab Sennosides (Senokot) 17.2 mg PO Q12H PRN PRN Reason: Moderate Constipation Sodium Chloride (Ns Flush) 2 ml IV.FLUSH BID [facility] Last Admin: 10/12/17 08:53 Dose: 2 ml Sodium Chloride (Ns Flush) 2 ml IV.FLUSH PRN PRN PRN Reason: FLUSH AFTER USING IV ACCESS Terbutaline Sulfate (Brethine Inj) 1 mg SQ UNSCH PRN PRN Reason: For Extravasation <Selma Jimenez - Last Filed: 10/12/17 17:03> Allergies Allergy/AdvReac Type Severity Reaction Status Date / Time No Allergy Information Allergy Unverified 10/03/17 18:31 Available Home Medications Medication Instructions Recorded Confirmed Type Unable to Obtain Home Meds 10/03/17 10/03/17 History Exam Vital signs: Vital Signs 10/11/17 12:00 10/11/17 12:06 10/11/17 14:00 Temperature 100 F H 100.6 F H Pulse Rate 86 91 H Respiratory Rate 15 15 15 Blood Pressure 92/62 L 94/62 L Pulse Oximetry 100 10/11/17 16:57 10/11/17 19:50 10/11/17 20:00 Temperature Pulse Rate 107 H Respiratory Rate 17 15 Blood Pressure Pulse Oximetry 96 100 97 10/11/17 22:00 10/11/17 22:01 10/11/17 22:20 Temperature 101.5 F H Pulse Rate 97 H 96 H Respiratory Rate 15 15 Blood Pressure 104/66 Pulse Oximetry 96 96 10/11/17 23:00 10/12/17 00:00 10/12/17 01:00 Temperature 101.1 F H 100.8 F H 100.9 F H Pulse Rate 90 80 82 Respiratory Rate 15 15 17 Blood Pressure 96/66 L 90/60 L 94/56 L Pulse Oximetry 96 95 94 L 0831/18 01:48 10/12/17 02:00 10/12/17 03:00 Temperature 100.9 F H 100.9 F H Pulse Rate 90 86 Respiratory Rate 16 15 15 Blood Pressure 96/69 L 94/62 L Pulse Oximetry 95 92 L 10/12/17 04:00 10/12/17 05:00 10/12/17 05:01 Temperature 101.1 F H 100.8 F H Pulse Rate 88 84 Respiratory Rate 15 16 15 Blood Pressure 101/69 98/70 L Pulse Oximetry 95 94 L 95 10/12/17 06:00 10/12/17 08:00 10/12/17 08:03 Temperature 100.8 F H 100.9 F H Pulse Rate 81 81 Respiratory Rate 15 15 15 Blood Pressure 106/66 117/80 Pulse Oximetry 94 L 93 L 93 L 10/12/17 10:00 Temperature 100.8 F H Pulse Rate 93 H Respiratory Rate 15 Blood Pressure 124/80 Pulse Oximetry 97 Intake & Output 10/11/17 10/12/17 10/12/17 18:59 06:59 18:59 Intake Total 250 / 250 944.5 / 944.5 250 / 250 Output Total 450 / 450 Balance 250 / 250 494.5 / 494.5 250 / 250 Weight 74.1 kg Intake: IV 250 / 250 412.5 / 412.5 250 / 250 Zosyn 3.375 GM Premix 50 ML @ 0 / 0 150 / 150 100 mls/hr IV.SIG Q6H JIGNA Rx#: [id number] Vancomycin Inj 1,250 MG In NS 262.5 / 262.5 Inj 250 ML @ 250 mls/hr IV.SIG Q24H [facility] Rx#:[id number] fentaNYL 10 mcg/mL Premix Drip 250 / 250 250 / 250 2,500 mcg In 250 ml @ 50 MCG/HR 5 mls/hr IV.SIG TITRATE PRN Rx #:[id number] Oral 0 / 0 Tube Feeding 482 / 482 Tube Irrigant 50 / 50 Output: Urine Amount (Catheter) 450 / 450 Indwelling Urethral Catheter 450 / 450 Other: Date of Last Bowel Movement 10/09/17 10/09/17 10/09/17 - Constitutional no acute distress - Routine HEENT Exam Head: Present: normocephalic, atraumatic - Routine Respiratory Exam Present: patient mechanically ventilated - Routine Abdominal Exam Present: soft, normoactive bowel sounds. Absent: distended - Routine Skin Exam Present: pallor - Routine Neurological Exam eyes open, does not track <KolbyAmanda pedraza - Last Filed: 10/12/17 11:31> Vital signs: Vital Signs 10/11/17 16:57 10/11/17 19:50 10/11/17 20:00 Temperature Pulse Rate 107 H Respiratory Rate 17 15 Blood Pressure Pulse Oximetry 96 100 97 10/11/17 22:00 10/11/17 22:01 10/11/17 22:20 Temperature 101.5 F H Pulse Rate 97 H 96 H Respiratory Rate 15 15 Blood Pressure 104/66 Pulse Oximetry 96 96 10/11/17 23:00 10/12/17 00:00 10/12/17 01:00 Temperature 101.1 F H 100.8 F H 100.9 F H Pulse Rate 90 80 82 Respiratory Rate 15 15 17 Blood Pressure 96/66 L 90/60 L 94/56 L Pulse Oximetry 96 95 94 L 10/12/17 01:48 10/12/17 02:00 10/12/17 03:00 Temperature 100.9 F H 100.9 F H Pulse Rate 90 86 Respiratory Rate 16 15 15 Blood Pressure 96/69 L 94/62 L Pulse Oximetry 95 92 L 10/12/17 04:00 10/12/17 05:00 10/12/17 05:01 Temperature 101.1 F H 100.8 F H Pulse Rate 88 84 Respiratory Rate 15 16 15 Blood Pressure 101/69 98/70 L Pulse Oximetry 95 94 L 95 10/12/17 06:00 10/12/17 08:00 10/12/17 08:03 Temperature 100.8 F H 100.9 F H Pulse Rate 81 81 Respiratory Rate 15 15 15 Blood Pressure 106/66 117/80 Pulse Oximetry 94 L 93 L 93 L 10/12/17 10:00 10/12/17 12:00 10/12/17 14:00 Temperature 100.8 F H 101.1 F H 100.7 F H Pulse Rate 93 H 91 H 83 Respiratory Rate 15 15 15 Blood Pressure 124/80 115/77 123/69 Pulse Oximetry 97 96 96 10/12/17 14:20 10/12/17 16:00 10/12/17 16:26 Temperature 100.4 F H Pulse Rate 91 H Respiratory Rate 15 15 20 Blood Pressure 132/75 Pulse Oximetry 94 L 98 100 Intake & Output 10/11/17 10/12/17 10/12/17 18:59 06:59 18:59 Intake Total 250 / 250 944.5 / 944.5 250 / 250 Output Total 450 / 450 Balance 250 / 250 494.5 / 494.5 250 / 250 Weight 74.1 kg Intake: IV 250 / 250 412.5 / 412.5 250 / 250 Zosyn 3.375 GM Premix 50 ML @ 0 / 0 150 / 150 100 mls/hr IV.SIG Q6H [facility] Rx#: [id number] Vancomycin Inj 1,250 MG In NS 262.5 / 262.5 Inj 250 ML @ 250 mls/hr IV.SIG Q24H [facility] Rx#:[id number] fentaNYL 10 mcg/mL Premix Drip 250 / 250 250 / 250 2,500 mcg In 250 ml @ 50 MCG/HR 5 mls/hr IV.SIG TITRATE PRN Rx #:[id number] Oral 0 / 0 Tube Feeding 482 / 482 Tube Irrigant 50 / 50 Output: Urine Amount (Catheter) 450 / 450 Indwelling Urethral Catheter 450 / 450 Other: Date of Last Bowel Movement 10/09/17 10/09/17 10/09/17 <Selma Jimenez - Last Filed: 10/12/17 17:03> Results - Labs CBC & Chem 7: 10/12/17 05:00 10/12/17 05:00 Labs: Laboratory Results - last 24 hr 10/11/17 10/11/17 10/12/17 13:17 18:28 00:48 WBC RBC Hgb Hct MCV MCH MCHC RDW Plt Count MPV Prelim Diff (Auto) Neut % (Auto) Lymph % (Auto) [place] % (Auto) Eos % (Auto) Baso % (Auto) Neut # (Auto) Lymph # (Auto) [place] # (Auto) Eos # (Auto) Baso # (Auto) WBC Differential Diff Scan Differential Comment Platelet Estimate Platelet Morphology PT INR Sodium Potassium Chloride Carbon Dioxide Anion Gap BUN Creatinine Estimated GFR POC Glucose 123 H 134 H 138 H Random Glucose Calcium Phosphorus Magnesium Total Bilirubin AST ALT Alkaline Phosphatase Total Protein Albumin 10/12/17 10/12/17 10/12/17 05:00 05:00 05:00 WBC 10.8 RBC 4.20 L Hgb 13.1 Hct 40.1 MCV 95.4 MCH 31.1 MCHC 32.6 RDW 17.7 H Plt Count 71 L MPV 10.6 Prelim Diff (Auto) Slide review pending Neut % (Auto) 89.8 H Lymph % (Auto) 2.6 L [place] % (Auto) 7.2 Eos % (Auto) 0.1 Baso % (Auto) 0.3 Neut # (Auto) 9.7 H Lymph # (Auto) 0.3 L [place] # (Auto) 0.8 Eos # (Auto) 0.0 Baso # (Auto) 0.0 WBC Differential . Diff Scan Auto diff confirmed Differential Comment . Platelet Estimate Low L Platelet Morphology Normal PT 15.7 H INR 1.6 Sodium 148 H Potassium 4.1 Chloride 108 H Carbon Dioxide 29.0 Anion Gap 11 BUN 86 H Creatinine 1.64 H Estimated GFR 41 L POC Glucose Random Glucose 121 H Calcium 7.6 L Phosphorus 3.4 D Magnesium 3.1 H Total Bilirubin 10.2 H AST 106 H ALT 384 H Alkaline Phosphatase 73 Total Protein 5.0 L Albumin 1.9 L <Amanda Jasso - Last Filed: 10/12/17 11:31> - Labs CBC & Chem 7: 10/12/17 05:00 10/12/17 05:00 Labs: Laboratory Results - last 24 hr 10/11/17 10/12/17 10/12/17 18:28 00:48 05:00 WBC 10.8 RBC 4.20 L Hgb 13.1 Hct 40.1 MCV 95.4 MCH 31.1 MCHC 32.6 RDW 17.7 H Plt Count 71 L MPV 10.6 Prelim Diff (Auto) Slide review pending Neut % (Auto) 89.8 H Lymph % (Auto) 2.6 L Est[place] % (Auto) 7.2 Eos % (Auto) 0.1 Baso % (Auto) 0.3 Neut # (Auto) 9.7 H Lymph # (Auto) 0.3 L [place] # (Auto) 0.8 Eos # (Auto) 0.0 Baso # (Auto) 0.0 WBC Differential . Diff Scan Auto diff confirmed Differential Comment . Platelet Estimate Low L Platelet Morphology Normal PT INR Sodium Potassium Chloride Carbon Dioxide Anion Gap BUN Creatinine Estimated GFR POC Glucose 134 H 138 H Random Glucose Calcium Phosphorus Magnesium Total Bilirubin AST ALT Alkaline Phosphatase Total Protein Albumin 10/12/17 10/12/17 10/12/17 05:00 05:00 12:14 WBC RBC Hgb Hct MCV MCH MCHC RDW Plt Count MPV Prelim Diff (Auto) Neut % (Auto) Lymph % (Auto) Estill % (Auto) Eos % (Auto) Baso % (Auto) Neut # (Auto) Lymph # (Auto) Estill # (Auto) Eos # (Auto) Baso # (Auto) WBC Differential Diff Scan Differential Comment Platelet Estimate Platelet Morphology PT 15.7 H INR 1.6 Sodium 148 H Potassium 4.1 Chloride 108 H Carbon Dioxide 29.0 Anion Gap 11 BUN 86 H Creatinine 1.64 H Estimated GFR 41 L POC Glucose 144 H Random Glucose 121 H Calcium 7.6 L Phosphorus 3.4 D Magnesium 3.1 H Total Bilirubin 10.2 H AST 106 H ALT 384 H Alkaline Phosphatase 73 Total Protein 5.0 L Albumin 1.9 L <Selma Jimenez - Last Filed: 10/12/17 17:03> Assessment and Plan - Plan Assessment: - Elevated LFTs (10/03) T bili-3.3 [id number] ALT-1898 Alk phos-33 LFTs have been trending down since admission except the T bili which elevated up to 14.1 but is down to 10.2 today. Unable to obtain history from pt he is mechanically ventilated and on low dose Fentanyl for sedation. His eyes are open but he does not track. According to records pt was found unresponsive in his home. Elevation in LFTs likely multifactorial, shock liver is likely, as well as probable rhabdomyolysis. Unsure of underlying liver disease, unable to obtain history regarding risk factors. Thrombocytopenia, coagulopathy, and hypoalbuminemia noted. Liver US (10/04) No evidence of gallstones or biliary tract obstruction. Hepatitis panel negative Plan: Fractionate bilirubin Liver work up Maintain BP Avoid hepatotoxins Further recommendations to follow Pt has been seen and examined by myself and Dr. Jimenez and this note is written on his behalf <Amanda Jasso - Last Filed: 10/12/17 11:31> - Plan Seen and examined with [employer], liver goodwin ordered. Monitor labs. LFT elevation multifactorial. Thankyou The exam, history, and the medical decision-making described in the above note were completed with the assistance of the mid-level provider. I reviewed and agree with the findings presented. I attest that I had a [id number] encounter with the patient on the same day, and personally performed and documented my assessment and findings in the medical record. <Selma Jimenez - Last Filed: 10/12/17 17:03>
[2017-10-12] MEDS: Levofloxacin 500 mg Premix Inj 500 MG/100 ML PIGGYBACK IV.SIG SCH (12:14)
[2017-10-12] MEDS: Acetaminophen 325 MG Tablet NG/OG PRN (12:36)
[2017-10-12] MEDS ORDERED: Pharmacy Ordered Lab Info OTHER ONE (15:45)
--- NOTE | 2017-10-12 16:04 | P.PNPAL ---
Reason for Visit Reason for visit: a. To assist with evaluation and management of symptoms including: Confusion, dyspnea b. To assist medical decision maker(s) with: better understanding of current medical conditions; weighing benefits/burdens of medical treatment options; making medical treatment decisions. Subjective Subjective/Interval History: This is an elderly male patient who presented to [facility] on 10/03/2017 as a Mario Schmidt after he was found in his apartment, unresponsive. He was subsequently admitted to the intensive care unit with multi organ failure, overall prognosis appeared poor. Overnight on 10/06/2017 patient developed worsening hypoxia with periods of apnea requiring intubation. Clinical data: * Febrile with rectal temp of 101.1 * WBC: 10.8; H/H 13.1/40.1; platelets 71; neutrophils 89.8% * PT: 15.7; INR 1.6 * Sodium: 148; potassium; 4.1 chloride 108; carbon dioxide 29.0; random glucose 121; calcium 7.6; phosphorus 3.4; magnesium 3.1 * BUN: 86, creatinine 1.64, GFR 41 * Total bilirubin: Total bilirubin 10.2, AST 106, ALT 384, alkaline phosphatase 73 * Total protein: Total protein 5.0, albumin 1.9 * Negative urine and blood culture from 10/03/2017; follow-up cultures pending * Pleural fluid cultures pending * Sputum cultures from 10/09/2017-negative * EEG consistent with significant encephalopathy. Patient remains intubated on mechanical ventilation and sedated with fentanyl drip. Follow-up chest x-ray on 10/11/2017 showed mild patchy mid and lower lung consolidation and small effusion on both sides not significantly changed. No pneumothorax. Mild cardiomegaly is stable. Infectious disease was consulted to evaluate patient having persistent fevers. Vancomycin and and Zosyn were discontinued, and the patient was started on Levaquin. Following repeat blood cultures, UA and C/S. Gastroenterology was consulted to evaluate patient for elevated LFTs. On admission patient's LFTs were significantly elevated and have been trending downward except for his bilirubin which went up to 14.4 on 10/10/2017 trending downward again to 10.2 today 10/12/2017. Elevated LFTs are likely multifactorial , shock liver and rhabdomyolysis are probably contributing factors. Liver ultrasound on 10/04/2017 showed no evidence of gallstones or biliary tract obstruction; hepatitis panel was negative. [employer] and google searches did not identify any potential family members. In accordance with the [place] statutes, it would be appropriated to proceed with patient's friend (Madina Acevedo) as the HCP decision maker. Healthcare proxy designation and acceptance form and notarized healthcare proxy affidavit are accessible in the patient's paper chart and EMR. Advance Directives Documented care wishes:: No known documented care wishes were completed. Objective Vital Signs: Vital Signs 10/11/17 16:57 10/11/17 19:50 10/11/17 20:00 Temperature Pulse Rate 107 H Respiratory Rate 17 15 Blood Pressure Pulse Oximetry 96 100 97 10/11/17 22:00 10/11/17 22:01 10/11/17 22:20 Temperature 101.5 F H Pulse Rate 97 H 96 H Respiratory Rate 15 15 Blood Pressure 104/66 Pulse Oximetry 96 96 10/11/17 23:00 10/12/17 00:00 10/12/17 01:00 Temperature 101.1 F H 100.8 F H 100.9 F H Pulse Rate 90 80 82 Respiratory Rate 15 15 17 Blood Pressure 96/66 L 90/60 L 94/56 L Pulse Oximetry 96 95 94 L 10/12/17 01:48 10/12/17 02:00 10/12/17 03:00 Temperature 100.9 F H 100.9 F H Pulse Rate 90 86 Respiratory Rate 16 15 15 Blood Pressure 96/69 L 94/62 L Pulse Oximetry 95 92 L 10/12/17 04:00 10/12/17 05:00 10/12/17 05:01 Temperature 101.1 F H 100.8 F H Pulse Rate 88 84 Respiratory Rate 15 16 15 Blood Pressure 101/69 98/70 L Pulse Oximetry 95 94 L 95 10/12/17 06:00 10/12/17 08:00 10/12/17 08:03 Temperature 100.8 F H 100.9 F H Pulse Rate 81 81 Respiratory Rate 15 15 15 Blood Pressure 106/66 117/80 Pulse Oximetry 94 L 93 L 93 L 10/12/17 10:00 10/12/17 12:00 10/12/17 14:20 Temperature 100.8 F H 101.1 F H Pulse Rate 93 H 91 H Respiratory Rate 15 15 15 Blood Pressure 124/80 115/77 Pulse Oximetry 97 96 94 L Intake & Output 10/11/17 10/12/17 10/12/17 18:59 06:59 18:59 Intake Total 250 / 250 944.5 / 944.5 250 / 250 Output Total 450 / 450 Balance 250 / 250 494.5 / 494.5 250 / 250 Weight 74.1 kg Intake: IV 250 / 250 412.5 / 412.5 250 / 250 Zosyn 3.375 GM Premix 50 ML @ 0 / 0 150 / 150 100 mls/hr IV.SIG Q6H [facility] Rx#: [id number] Vancomycin Inj 1,250 MG In NS 262.5 / 262.5 Inj 250 ML @ 250 mls/hr IV.SIG Q24H [facility] Rx#:[id number] fentaNYL 10 mcg/mL Premix Drip 250 / 250 250 / 250 2,500 mcg In 250 ml @ 50 MCG/HR 5 mls/hr IV.SIG TITRATE PRN Rx #:[id number] Oral 0 / 0 Tube Feeding 482 / 482 Tube Irrigant 50 / 50 Output: Urine Amount (Catheter) 450 / 450 Indwelling Urethral Catheter 450 / 450 Other: Date of Last Bowel Movement 10/09/17 10/09/17 10/09/17 Physical Exam: CONSTITUTIONAL/GENERAL: This is a frail, elderly male patient who appears disheveled TUBES/LINES/DRAINS: PIV, central line Alberto catheter; nasal cannula SKIN: Abrasions and bruising on upper and lower extremities bilaterally. Abrasions on scalp. Not diaphoretic. Jaundice HEAD: Atraumatic. Normocephalic. EYES: Pupils equal and round. + Scleral icterus no injection or drainage. Fundi not examined. ENT: Nose without bleeding or purulent drainage. Dry mucous membranes NECK: Trachea midline. Supple, nontender. No palpable thyroid enlargement or nodularity. CARDIOVASCULAR: Regular rate and rhythm without murmurs, gallops, or rubs. No JVD. RESPIRATORY/CHEST: Scattered coarse breath sounds, decreased in bases bilaterally. No wheezing. GASTROINTESTINAL: Abdomen soft, non-tender, nondistended. No hepato-splenomegaly , or palpable masses. No guarding. Bowel sounds hypoactive GENITOURINARY: Without palpable bladder distension. Alberto catheter draining fern colored urine MUSCULOSKELETAL: Feet are dusky and mottled bilaterally. 2+ peripheral pitting edema. Muscle wasting in all extremities LYMPHATICS: No palpable cervical or supraclavicular adenopathy. NEUROLOGICAL: Moves upper extremities spontaneously. Grimaces to pain. Does not respond to questions or follow commands. PSYCHIATRIC: No obvious anxiety/depression. No apparent hallucinations or other psychotic thought process. Diagnostic Tests Laboratory: Laboratory Results - last 72 hr 10/09/17 10/09/17 10/09/17 14:40 14:40 18:17 WBC RBC Hgb Hct MCV MCH MCHC RDW Plt Count MPV Prelim Diff (Auto) Neut % (Auto) Lymph % (Auto) [place] % (Auto) Eos % (Auto) Baso % (Auto) Neut # (Auto) Lymph # (Auto) [place] # (Auto) Eos # (Auto) Baso # (Auto) WBC Differential Diff Scan Differential Comment Platelet Estimate Platelet Morphology Ovalocytes Acanthocytes (Spur) Keratocytes PT INR Sodium Potassium 4.1 D Chloride Carbon Dioxide Anion Gap BUN Creatinine Estimated GFR POC Glucose Random Glucose Calcium Prot Corrected Calcium Phosphorus Magnesium Total Bilirubin AST ALT Alkaline Phosphatase Total Protein Albumin Pleural pH 8.5 Pleural RBC 1859 H Pleural Nuc Cells 172 H Pleural Neutrophils 37 Pleural Lymphocytes 30 Pleural Monocytes 7 Pleural Histocytes 3 Pleural Mesothelial 23 Pleural Total Protein 1.0 Pleural LDH 194 Pleural Glucose 104 Vancomycin Trough 10/09/17 10/10/17 10/10/17 18:20 00:26 05:15 WBC 9.9 RBC 4.24 L Hgb 13.4 Hct 40.2 MCV 94.9 MCH 31.6 MCHC 33.3 RDW 17.4 H Plt Count 86 L D MPV 10.1 Prelim Diff (Auto) Slide review pending Neut % (Auto) 88.5 H Lymph % (Auto) 3.9 L Sumter % (Auto) 7.3 Eos % (Auto) 0.2 Baso % (Auto) 0.1 Neut # (Auto) 8.8 H Lymph # (Auto) 0.4 L [place] # (Auto) 0.7 Eos # (Auto) 0.0 Baso # (Auto) 0.0 WBC Differential . Diff Scan Auto diff confirmed Differential Comment . Platelet Estimate Low L Platelet Morphology Normal Ovalocytes 1+ H Acanthocytes (Spur) Occ H Keratocytes Occ H PT INR Sodium Potassium Chloride Carbon Dioxide Anion Gap BUN Creatinine Estimated GFR POC Glucose 105 116 H Random Glucose Calcium Prot Corrected Calcium Phosphorus Magnesium Total Bilirubin AST ALT Alkaline Phosphatase Total Protein Albumin Pleural pH Pleural RBC Pleural Nuc Cells Pleural Neutrophils Pleural Lymphocytes Pleural Monocytes Pleural Histocytes Pleural Mesothelial Pleural Total Protein Pleural LDH Pleural Glucose Vancomycin Trough 10/10/17 10/10/17 10/10/17 05:15 05:15 05:36 WBC RBC Hgb Hct MCV MCH MCHC RDW Plt Count MPV Prelim Diff (Auto) Neut % (Auto) Lymph % (Auto) Sum[place] % (Auto) Eos % (Auto) Baso % (Auto) Neut # (Auto) Lymph # (Auto) [place] # (Auto) Eos # (Auto) Baso # (Auto) WBC Differential Diff Scan Differential Comment Platelet Estimate Platelet Morphology Ovalocytes Acanthocytes (Spur) Keratocytes PT 13.8 H INR 1.4 Sodium 145 Potassium 4.0 Chloride 106 Carbon Dioxide 28.2 Anion Gap 11 BUN 62 H Creatinine 1.58 H Estimated GFR 42 L POC Glucose 117 H Random Glucose 107 H Calcium 7.4 L* Prot Corrected Calcium 8.5 Phosphorus 4.2 D Magnesium 2.6 H Total Bilirubin 14.4 H AST 243 H ALT 699 H Alkaline Phosphatase 35 L Total Protein 5.2 L D Albumin 2.1 L Pleural pH Pleural RBC Pleural Nuc Cells Pleural Neutrophils Pleural Lymphocytes Pleural Monocytes Pleural Histocytes Pleural Mesothelial Pleural Total Protein Pleural LDH Pleural Glucose Vancomycin Trough 10/10/17 10/10/17 10/10/17 12:15 15:40 17:33 WBC RBC Hgb Hct MCV MCH MCHC RDW Plt Count MPV Prelim Diff (Auto) Neut % (Auto) Lymph % (Auto) Sum[place] % (Auto) Eos % (Auto) Baso % (Auto) Neut # (Auto) Lymph # (Auto) [place] # (Auto) Eos # (Auto) Baso # (Auto) WBC Differential Diff Scan Differential Comment Platelet Estimate Platelet Morphology Ovalocytes Acanthocytes (Spur) Keratocytes PT INR Sodium Potassium Chloride Carbon Dioxide Anion Gap BUN Creatinine Estimated GFR POC Glucose 140 H 132 H Random Glucose Calcium Prot Corrected Calcium Phosphorus Magnesium Total Bilirubin AST ALT Alkaline Phosphatase Total Protein Albumin Pleural pH Pleural RBC Pleural Nuc Cells Pleural Neutrophils Pleural Lymphocytes Pleural Monocytes Pleural Histocytes Pleural Mesothelial Pleural Total Protein Pleural LDH Pleural Glucose Vancomycin Trough 15.0 H 10/11/17 10/11/17 10/11/17 00:03 05:00 05:00 WBC 10.3 RBC 4.39 L Hgb 13.7 Hct 41.8 MCV 95.2 MCH 31.2 MCHC 32.7 RDW 17.9 H Plt Count 77 L MPV 10.5 Prelim Diff (Auto) Slide review pending Neut % (Auto) 90.1 H Lymph % (Auto) 2.7 L Sumter % (Auto) 6.9 Eos % (Auto) 0.0 Baso % (Auto) 0.3 Neut # (Auto) 9.3 H Lymph # (Auto) 0.3 L [place] # (Auto) 0.7 Eos # (Auto) 0.0 Baso # (Auto) 0.0 WBC Differential . Diff Scan Auto diff confirmed Differential Comment . Platelet Estimate Low L Platelet Morphology Normal Ovalocytes 1+ H Acanthocytes (Spur) Occ H Keratocytes PT INR Sodium 145 Potassium 4.2 Chloride 107 Carbon Dioxide 25.2 Anion Gap 13 BUN 69 H Creatinine 1.74 H Estimated GFR 38 L POC Glucose 132 H Random Glucose 136 H Calcium 7.5 L Prot Corrected Calcium Phosphorus 4.5 Magnesium 2.6 H Total Bilirubin 14.1 H AST 149 H ALT 537 H Alkaline Phosphatase 54 Total Protein 5.1 L Albumin 2.1 L Pleural pH Pleural RBC Pleural Nuc Cells Pleural Neutrophils Pleural Lymphocytes Pleural Monocytes Pleural Histocytes Pleural Mesothelial Pleural Total Protein Pleural LDH Pleural Glucose Vancomycin Trough 10/11/17 10/11/17 10/11/17 05:00 13:17 18:28 WBC RBC Hgb Hct MCV MCH MCHC RDW Plt Count MPV Prelim Diff (Auto) Neut % (Auto) Lymph % (Auto) Sumter % (Auto) Eos % (Auto) Baso % (Auto) Neut # (Auto) Lymph # (Auto) [place] # (Auto) Eos # (Auto) Baso # (Auto) WBC Differential Diff Scan Differential Comment Platelet Estimate Platelet Morphology Ovalocytes Acanthocytes (Spur) Keratocytes PT 14.4 H INR 1.4 Sodium Potassium Chloride Carbon Dioxide Anion Gap BUN Creatinine Estimated GFR POC Glucose 123 H 134 H Random Glucose Calcium Prot Corrected Calcium Phosphorus Magnesium Total Bilirubin AST ALT Alkaline Phosphatase Total Protein Albumin Pleural pH Pleural RBC Pleural Nuc Cells Pleural Neutrophils Pleural Lymphocytes Pleural Monocytes Pleural Histocytes Pleural Mesothelial Pleural Total Protein Pleural LDH Pleural Glucose Vancomycin Trough 10/12/17 10/12/17 10/12/17 00:48 05:00 05:00 WBC 10.8 RBC 4.20 L Hgb 13.1 Hct 40.1 MCV 95.4 MCH 31.1 MCHC 32.6 RDW 17.7 H Plt Count 71 L MPV 10.6 Prelim Diff (Auto) Slide review pending Neut % (Auto) 89.8 H Lymph % (Auto) 2.6 L Sumter % (Auto) 7.2 Eos % (Auto) 0.1 Baso % (Auto) 0.3 Neut # (Auto) 9.7 H Lymph # (Auto) 0.3 L [place] # (Auto) 0.8 Eos # (Auto) 0.0 Baso # (Auto) 0.0 WBC Differential . Diff Scan Auto diff confirmed Differential Comment . Platelet Estimate Low L Platelet Morphology Normal Ovalocytes Acanthocytes (Spur) Keratocytes PT INR Sodium 148 H Potassium 4.1 Chloride 108 H Carbon Dioxide 29.0 Anion Gap 11 BUN 86 H Creatinine 1.64 H Estimated GFR 41 L POC Glucose 138 H Random Glucose 121 H Calcium 7.6 L Prot Corrected Calcium Phosphorus 3.4 D Magnesium 3.1 H Total Bilirubin 10.2 H AST 106 H ALT 384 H Alkaline Phosphatase 73 Total Protein 5.0 L Albumin 1.9 L Pleural pH Pleural RBC Pleural Nuc Cells Pleural Neutrophils Pleural Lymphocytes Pleural Monocytes Pleural Histocytes Pleural Mesothelial Pleural Total Protein Pleural LDH Pleural Glucose Vancomycin Trough 10/12/17 10/12/17 05:00 12:14 WBC RBC Hgb Hct MCV MCH MCHC RDW Plt Count MPV Prelim Diff (Auto) Neut % (Auto) Lymph % (Auto) [place] % (Auto) Eos % (Auto) Baso % (Auto) Neut # (Auto) Lymph # (Auto) [place] # (Auto) Eos # (Auto) Baso # (Auto) WBC Differential Diff Scan Differential Comment Platelet Estimate Platelet Morphology Ovalocytes Acanthocytes (Spur) Keratocytes PT 15.7 H INR 1.6 Sodium Potassium Chloride Carbon Dioxide Anion Gap BUN Creatinine Estimated GFR POC Glucose 144 H Random Glucose Calcium Prot Corrected Calcium Phosphorus Magnesium Total Bilirubin AST ALT Alkaline Phosphatase Total Protein Albumin Pleural pH Pleural RBC Pleural Nuc Cells Pleural Neutrophils Pleural Lymphocytes Pleural Monocytes Pleural Histocytes Pleural Mesothelial Pleural Total Protein Pleural LDH Pleural Glucose Vancomycin Trough Result Diagrams: 10/12/17 05:00 10/12/17 05:00 Microbiology: Microbiology 10/09/17 14:40 Gram Stain - Final Fluid - Pleural fluid Body Fluid Culture - Final No growth in 72 hours (aerobically and anaerobically) 10/09/17 09:00 Gram Stain - Final Sputum - Endotracheal Sputum Culture - Final Rare growth normal respiratory lesli 10/09/17 14:40 Fungal Smear - Final Fluid - Pleural fluid No fungal elements seen Imaging: Elbow X-Ray 10/03/17 18:31 CONCLUSION: There is discontinuity of the tip of a small olecranon spur without soft tissue swelling. Cannot exclude a fracture. Recommend correlation with clinical exam for point tenderness in this area. Hip X-Ray 10/03/17 18:31 CONCLUSION: No fracture seen. Lumbar Spine X-Ray 10/03/17 18:31 CONCLUSION: 60% anterior compression fracture of L2. No retropulsed fragments seen. Cervical Spine CT 10/03/17 18:35 CONCLUSION: 1. No evidence of compression deformity, fracture, or spondylolisthesis. 2. Advanced hypertrophic degenerative changes in the facet joints, more severe on the right. Abdomen/Pelvis CT 10/03/17 18:38 CONCLUSION: 1. Bilateral pleural effusions, right greater than left. 2. Nonobstructing 4 mm stone in the right renal collecting system. 3. 3.7 cm infrarenal abdominal aortic aneurysm. 4. Small fat-containing left inguinal hernia. Chest CT 10/03/17 18:38 CONCLUSION: 1. Large right and small left pleural effusion. 2. No fracture seen. No evidence of pneumothorax. Liver Ultrasound 10/04/17 00:00 CONCLUSION: 1. No evidence of gallstones or biliary tract obstruction. 2. There is a cyst along the upper pole the right kidney measuring 3 cm. 3. Bilateral pleural effusions. Head CT 10/06/17 00:00 CONCLUSION: 1. Stable evaluation the brain. 2. No evidence of acute infarct, hemorrhage, mass or edema. . Head MRI 10/09/17 00:00 CONCLUSION: 1. No acute infarct, acute hemorrhage, midline shift or extra-axial fluid collections. 2. Mild cerebral atrophy. 3. 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 4. Minimal small vessel ischemic changes within the periventricular and subcortical white matter bilaterally. Chest X-Ray 10/11/17 00:00 CONCLUSION: No significant change. Procedures: 10/06/17: Intubation 10/06/17: Central line placement Assessment and Plan - Disease Oriented Problem List (1) Pleural effusion (2) JAVON (acute kidney injury) (3) NSTEMI (non-ST elevated myocardial infarction) (4) Electrolyte imbalance (5) Hypertension - Symptom Scale (1) Confusion Comment: = Neurology was consulted because of patient's ongoing encephalopathy. = MRI of the brain on 10/09/2017 showed no acute infarct, acute hemorrhage, midline shift or extra-axial fluid collections. Mild cerebral atrophy. 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 Minimal small vessel ischemic changes within the periventricular and subcortical white matter bilaterally. = EEG pending (2) Dyspnea Comment: = CXR on 10/08/2017 showed worsening right greater than left bibasilar consolidation and small pleural effusions. = Follow-up checks x-ray on 10/09/2017 showed improved aeration status post thoracentesis with 1.5L transudative fluid removed. Cultures pending. Pertinent Non-Medical Issues: Psychosocial: Patient is originally from [place], [place]. He moved to [place], [place] in 1991. He was twice, twice. Patient has 2 children from his first marriage (Kayy Gould and Pablo), and one child (Paul) from his second marriage. He reportedly has had no contact with his children. His parents are . He has 5 brothers and one sister but apparently has not had any contact with him for many years. Patient graduated from high school; he had a variety of different jobs. Spiritual: Patient is unable to provide this information due to his altered mentation/confusion. Legal: Accurate in's requested, awaiting results Ethical issues impacting care: No known ethical issues impacting care at this time Important Contacts: Madina Acevedo, friend: [phone] Prognosis: Patient is a severely debilitated 82-year-old male with multiorgan failure and severe sepsis. Patient is critically ill and at very high risk for further decompensation and . Prognosis is very poor. Code Status: Full Code Plan: = FULL CODE = Decision making: [employer] and [employer] searches did not identify any potential family members. In accordance with the [place] statutes, it would be appropriated to proceed with patient's friend (Madina Acevedo) as the HCP decision maker. Healthcare proxy designation and acceptance form and notarized healthcare proxy of the dated were placed in the patient's chart and faxed to HIM to be scanned into the patient's EMR = GOALS REMAIN AGGRESSIVE. Friend/HCP (Madina Acevedo) states "I think he still got something left; he's not ready to ." She is familiar with the process of withdrawing artificial life support with her father's girlfriend; she states she is not afraid to make those decisions if the patient continues to decline but only when she is certain it is the right thing to do. She is familiar with the process of withdrawing artificial life support with her father's girlfriend ; she states she is not afraid to make those decisions but only when she is certain it is the right thing to do. = Attempted to call patient's friend (Madina Acevedo) to provide a clinical update ; a message was left on her voicemail with Palliative care contact information = Symptom management: ++ Dyspnea: Patient was emergently intubated on 10/06/2017 secondary to worsening hypoxia and periods of apnea. Follow-up chest x-ray on 10/11/2017 showed mild patchy mid and lower lung consolidation and small effusion on both sides not significantly changed. No pneumothorax. Mild cardiomegaly is stable. Pleural fluid cultures pending. Sputum cultures from 10/09/2017-negative ++ Confusion: Acute encephalopathy likely multi-factorial. Contributing factors may include metabolic imbalance, sepsis, UTI, pain, constipation etc. Patient is sedated with fentanyl. CT of the brain on showed no evidence of acute infarct, hemorrhage, mass or edema. MRI of the brain on 10/09/2017 showed no acute infarct, acute hemorrhage, midline shift or extra-axial fluid collections. Mild cerebral atrophy. 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 Minimal small vessel ischemic changes within the periventricular and subcortical white matter bilaterally. EEG consistent with significant encephalopathy. = Discussed patient with Dr. Ruiz = Palliative care will continue to follow this patient throughout his hospitalization to establish trust, assist with symptom management and clarification of medical treatment goals. Attestation Attestation: To help prompt me to consider important information that might be impacting today's encounter and assessment, information from prior notes written by myself or my colleagues may have been "brought forward" into today's note. My signature on this note, however, is an attestation that I personally performed the exam, history, and/or decision-making noted today, and, unless otherwise indicated, the interactions with patient, family, and staff as well as the review of records all occurred today. I also attest that the listed assessment and stated plan reflect my best clinical judgment today based on the combination of historical information, prior notes, and today's exam/ interactions. When time spent is documented, it refers only to time spent today by the signer, or if indicated, combined time spent today by collaborating physician/nurse practitioner.
[2017-10-12 21:26] LABS: Amorphous Sediment,Urine Rare /hpf; Bacteria,Urine Rare /hpf; Bilirubin,Urine Small (Negative); Clarity,Urine Cloudy (Clear); Color,Urine Amber (Yellw/Straw); Glucose,Urine (UA) Negative (Negative); Leukocyte Esterase,Urine Negative (Negative); Nitrite,Urine Negative (Negative); Specific Gravity,Urine 1.024 (1.002-1.035)
[2017-10-12 21:31] LABS: Ictotest,Urine Positive (Negative)
[2017-10-13] MEDS: Insulin NovoLOG Aspart Correctional Sugar Inj SQ SCH ×4 (00:37→19:05)
[2017-10-13 04:20] LABS: Baso # (Auto) 0.1 th/mm3 (0.0-0.2); Baso % (Auto) 0.7 % (0.0-2.0); Hematocrit 44.2 % (39.0-51.0); Hemoglobin 14.5 gm/dL (13.0-17.0); Lymph # (Auto) 0.4 th/mm3 (1.0-4.8); Lymph % (Auto) 2.5 % (9.0-44.0); Mean Corpuscular HGB Conc 32.7 % (32.0-36.0); Mean Corpuscular Volume 94.8 fL (80.0-100.0); Mean Platelet Volume 10.6 fL (7.0-11.0); Mono # (Auto) 0.8 th/mm3 (0.0-0.9); Mono % (Auto) 5.4 % (0.0-8.0); Neut # (Auto) 12.8 th/mm3 (1.8-7.7); Neut % (Auto) 91.4 % (16.0-70.0); Platelet Count 81 th/mm3 (150-450); Red Blood Count 4.67 mil/mm3 (4.50-5.90); Red Cell Distribution Width 17.9 % (11.6-17.2)
[2017-10-13 04:27] LABS: INR 1.5 Ratio; Prothrombin Time 15.2 sec (9.8-11.6)
[2017-10-13 05:18] LABS: Calcium 7.4 mg/dL (8.5-10.1); Carbon Dioxide 26.6 meq/L (21.0-32.0); Magnesium 3.1 mg/dL (1.5-2.5); Phosphorus 4.1 mg/dL (2.5-4.9); Potassium 4.1 meq/L (3.5-5.1); Total Protein 5.4 g/dL (6.4-8.2)
--- NOTE | 2017-10-13 07:11 | P.PNCC ---
Subjective Subjective Remarks/Hospital Course: Patient is an elderly male with unknown past medical history who was found on the floor of his apartment with door open. Apparently neighbors checked on him and found him unresponsive on the floor. Patient was brought to the emergency department and underwent extensive workup to rule out trauma. CT of the head showed moderate to severe atrophy, CT of the chest showed moderate right-sided and small left effusion. 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 X-ray of his right elbow showed a possible olecranon spur discontinuity. Multiple lab abnormalities white count was 12.8 with 87% neutrophils platelet count 60 INR was 2.3. UA showed evidence of UTI, patient received a dose of cefepime for severe sepsis. Also his troponin was elevated at 6.8, lactic acid was 8.3 BUN 67 creatinine 2.71. Patient received 2 L normal saline boluses. Dr. Jaimes from cardiology was contacted for an STEMI. Due to poor mentation and multiorgan failure patient was deemed not a candidate for cardiac catheterization. Cannot use aspirin or heparin due to platelet count of 60,000 INR of 2.3. Other abnormal labs included transaminitis and elevated CPK. I evaluated the patient in the emergency department. He is severely encephalopathic appears critical, tachypneic but protecting airway. He is not able to say his name or mouth any words. He continues to move his head side to side but not communicative. I have added additional 2 L normal saline bolus, give 2 A of bicarb. Check ABG. Broad-spectrum antibiotics with vancomycin 1 dose and renally dosed Zosyn. Patient is very critically ill and has multiorgan failure, overall prognosis appears very poor. 10/04: This morning patient is not on any pressors. He is awake, agitated at times requiring restraints. He is saying incomprehensible words. T-max of 99.1. Urine output is minimal. 10/05: No events over the night. T-max of 98.4. Patient's mental status remains unchanged. Lethargic but easily arousable, not following any commands, saying incomprehensible words. Urine output of 525 mL's over the last 24 hours. Patient identified as Pablo Slater, 82-year-old gentleman. Still no family contact yet. 10/06: Over the night, patient developed worsening hypoxia with periods of apnea therefore he was intubated and now he is mechanically ventilated. This morning he is on no sedation, thrashing in bed, not following any commands. T-max of 99.9. Urine output is low, 200 mL's over the last 24 hours. Low blood pressure over the night noted, 1000 mL's of LR bolus given map remains borderline low normal. Morning chest x-ray reviewed, bibasilar infiltrates, right greater than left. ET tube is in good position. ROS -unobtainable due to patient's mental status SUBJECTIVE: 10/07: Low-grade temperatures overnight. Remains on norepinephrine drip at 2 mcg /min. Arousable on fentanyl drip at 100 mg an hour. No bowel movement. 10/08 Patient remains intubated and sedated with Fentanyl infusion. Afebrile. On Levophed 1 tu. Renal function is improving with Cr: 1.51 from 1.71. 10/09 No events overnight intubated and sedated with Fentanyl infusion on Levophed 2 mics. T:99.7. 10/10 Patient remains intubated and sedated with Fentanyl drip. s/p right sided thoracentesis yesterday with removal 1.5L (transudative fluid) On Levophed 2 mics. 10/11 : Remains sedated, orally intubated on mechanical ventilation. 10/12 Patient remains intubated and on Fentanyl infusion for sedation. T:101.5 last night. 10/13 Patient remains intubated and sedated, T 100.8 Objective Vital Signs / I&O: Vital Signs 10/12/17 08:00 10/12/17 08:03 10/12/17 10:00 Temperature 100.9 F H 100.8 F H Pulse Rate 81 93 H Respiratory Rate 15 15 15 Blood Pressure 117/80 124/80 Pulse Oximetry 93 L 93 L 97 10/12/17 12:00 10/12/17 14:00 10/12/17 14:20 Temperature 101.1 F H 100.7 F H Pulse Rate 91 H 83 Respiratory Rate 15 15 15 Blood Pressure 115/77 123/69 Pulse Oximetry 96 96 94 L 10/12/17 14:46 10/12/17 16:00 08/31/18 16:26 Temperature 100.8 F H 100.4 F H Pulse Rate 89 91 H Respiratory Rate 15 15 20 Blood Pressure 123/74 132/75 Pulse Oximetry 97 98 100 10/12/17 18:00 10/12/17 19:00 10/12/17 19:57 Temperature 100.4 F H 100.4 F H Pulse Rate 83 99 H Respiratory Rate 15 15 15 Blood Pressure 122/77 116/77 Pulse Oximetry 95 97 10/12/17 20:00 10/12/17 20:30 10/12/17 21:00 Temperature 100.8 F H 100.9 F H 101.1 F H Pulse Rate 113 H 112 H 125 H Respiratory Rate 16 4 L 37 H Blood Pressure 131/82 141/73 H 149/84 H Pulse Oximetry 96 97 84 L 10/12/17 21:15 10/12/17 21:30 10/12/17 21:35 Temperature Pulse Rate Respiratory Rate Blood Pressure 167/76 H 155/100 H 159/92 H Pulse Oximetry 10/12/17 22:00 10/12/17 22:30 10/13/17 00:00 Temperature 101.5 F H 101.7 F H 101.7 F H Pulse Rate 126 H 120 H 114 H Respiratory Rate 42 H 15 15 Blood Pressure 167/102 H 161/132 H 129/76 Pulse Oximetry 88 L 96 74 L 10/13/17 00:30 10/13/17 01:00 10/13/17 01:03 Temperature 101.7 F H 101.7 F H Pulse Rate 103 H 108 H Respiratory Rate 16 15 15 Blood Pressure 119/80 115/74 Pulse Oximetry 99 98 96 10/13/17 01:31 10/13/17 02:00 10/13/17 02:30 Temperature 101.5 F H 101.3 F H 101.3 F H Pulse Rate 100 H 107 H 99 H Respiratory Rate 15 15 15 Blood Pressure 122/68 109/75 108/64 Pulse Oximetry 97 96 96 10/13/17 03:00 10/13/17 03:30 10/13/17 03:51 Temperature 101.3 F H 101.3 F H Pulse Rate 98 H 104 H Respiratory Rate 15 15 18 Blood Pressure 114/82 146/90 H Pulse Oximetry 95 97 95 10/13/17 04:00 10/13/17 04:30 10/13/17 05:00 Temperature 101.5 F H 101.3 F H 101.1 F H Pulse Rate 105 H 100 H 98 H Respiratory Rate 16 16 15 Blood Pressure 124/80 119/76 116/76 Pulse Oximetry 96 97 95 10/13/17 05:30 10/13/17 06:00 Temperature 100.9 F H 100.8 F H Pulse Rate 98 H 96 H Respiratory Rate 20 18 Blood Pressure 117/78 119/81 Pulse Oximetry 95 97 Intake & Output 10/12/17 10/13/17 10/13/17 18:59 06:59 18:59 Intake Total 900 / 900 755 / 755 Output Total 600 / 600 350 / 350 Balance 300 / 300 405 / 405 Weight 75.9 kg Intake: IV 250 / 250 180 / 180 fentaNYL 10 mcg/mL Premix Drip 250 / 250 180 / 180 2,500 mcg In 250 ml @ 50 MCG/HR 5 mls/hr IV.SIG TITRATE PRN Rx #:[id number] Oral 0 / 0 Tube Feeding 450 / 450 455 / 455 Water Bolus Amount 200 / 200 120 / 120 Output: Urine 600 / 600 Urine Amount (Catheter) 350 / 350 Indwelling Urethral Catheter 350 / 350 Other: Date of Last Bowel Movement 10/09/17 10/13/17 # Bowel Movements 1 Result Diagrams: 10/13/17 04:05 10/13/17 04:05 Other Results: Laboratory Results - last 12 hr 10/12/17 10/12/17 10/13/17 20:10 23:46 04:05 WBC 14.0 H RBC 4.67 Hgb 14.5 Hct 44.2 MCV 94.8 MCH 31.0 MCHC 32.7 RDW 17.9 H Plt Count 81 L MPV 10.6 Prelim Diff (Auto) Slide review pending Neut % (Auto) 91.4 H Lymph % (Auto) 2.5 L [place] % (Auto) 5.4 Eos % (Auto) 0.0 Baso % (Auto) 0.7 Neut # (Auto) 12.8 H Lymph # (Auto) 0.4 L [place] # (Auto) 0.8 Eos # (Auto) 0.0 Baso # (Auto) 0.1 Differential Comment . PT INR Sodium Potassium Chloride Carbon Dioxide Anion Gap BUN Creatinine Estimated GFR POC Glucose 117 H Random Glucose Calcium Prot Corrected Calcium Phosphorus Magnesium Total Bilirubin AST ALT Alkaline Phosphatase Total Protein Albumin Urine Color Dee Urine Clarity Cloudy H Urine pH 5.0 Ur Specific [place] 1.024 Urine Protein 30 H Urine Glucose (UA) Negative Urine Ketones Negative Urine Occult Blood Small H Urine Nitrate Negative Urine Bilirubin Small H Urine Ictotest Positive H Urine Urobilinogen 2.0 H Ur Leukocyte Esterase Negative Urine RBC 13 H Urine WBC 1 Amorphous Sediment Rare H Urine Bacteria Rare H Urine Yeast Many H Micro UA Comment Culture indicated Ur Microscopic Review Not Reportable Urine Culture Comments Culture indicated 10/13/17 10/13/17 10/13/17 04:05 04:05 05:38 WBC RBC Hgb Hct MCV MCH MCHC RDW Plt Count MPV Prelim Diff (Auto) Neut % (Auto) Lymph % (Auto) [place] % (Auto) Eos % (Auto) Baso % (Auto) Neut # (Auto) Lymph # (Auto) [place] # (Auto) Eos # (Auto) Baso # (Auto) Differential Comment PT 15.2 H INR 1.5 Sodium 148 H Potassium 4.1 Chloride 109 H Carbon Dioxide 26.6 Anion Gap 12 BUN 92 H Creatinine 1.71 H Estimated GFR 39 L POC Glucose 125 H Random Glucose 148 H Calcium 7.4 L* Prot Corrected Calcium 8.3 L Phosphorus 4.1 Magnesium 3.1 H Total Bilirubin 8.9 H AST 126 H ALT 338 H Alkaline Phosphatase 131 H Total Protein 5.4 L Albumin 2.0 L Urine Color Urine Clarity Urine pH Ur Specific [place] Urine Protein Urine Glucose (UA) Urine Ketones Urine Occult Blood Urine Nitrate Urine Bilirubin Urine Ictotest Urine Urobilinogen Ur Leukocyte Esterase Urine RBC Urine WBC Amorphous Sediment Urine Bacteria Urine Yeast Micro UA Comment Ur Microscopic Review Urine Culture Comments Imaging: Elbow X-Ray 10/03/17 18:31 CONCLUSION: There is discontinuity of the tip of a small olecranon spur without soft tissue swelling. Cannot exclude a fracture. Recommend correlation with clinical exam for point tenderness in this area. Hip X-Ray 10/03/17 18:31 CONCLUSION: No fracture seen. Lumbar Spine X-Ray 10/03/17 18:31 CONCLUSION: 60% anterior compression fracture of L2. No retropulsed fragments seen. Cervical Spine CT 10/03/17 18:35 CONCLUSION: 1. No evidence of compression deformity, fracture, or spondylolisthesis. 2. Advanced hypertrophic degenerative changes in the facet joints, more severe on the right. Abdomen/Pelvis CT 10/03/17 18:38 CONCLUSION: 1. Bilateral pleural effusions, right greater than left. 2. Nonobstructing 4 mm stone in the right renal collecting system. 3. 3.7 cm infrarenal abdominal aortic aneurysm. 4. Small fat-containing left inguinal hernia. Chest CT 10/03/17 18:38 CONCLUSION: 1. Large right and small left pleural effusion. 2. No fracture seen. No evidence of pneumothorax. Liver Ultrasound 10/04/17 00:00 CONCLUSION: 1. No evidence of gallstones or biliary tract obstruction. 2. There is a cyst along the upper pole the right kidney measuring 3 cm. 3. Bilateral pleural effusions. Head CT 10/06/17 00:00 CONCLUSION: 1. Stable evaluation the brain. 2. No evidence of acute infarct, hemorrhage, mass or edema. . Head MRI 10/09/17 00:00 CONCLUSION: 1. No acute infarct, acute hemorrhage, midline shift or extra-axial fluid collections. 2. Mild cerebral atrophy. 3. 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 4. Minimal small vessel ischemic changes within the periventricular and subcortical white matter bilaterally. Chest X-Ray 10/11/17 00:00 CONCLUSION: No significant change. Objective Remarks: GENERAL: Elderly gentleman, poorly nourished, very deconditioned, ill-appearing , intubated HEENT: Pupils are equal and reactive. Sclerae anicteric. Neck supple without rigidity. Orally intubated. Neck veins are nondistended. No carotid bruit. CHEST: Scattered coarse breath sounds bilateral, decreased breath sounds at bases but overall improved air entry. No wheezes. CARDIOVASCULAR: Regular heart sounds, without murmurs. ABDOMEN: Soft, nontender, nondistended. Bowel sounds are decreased. No hepatomegaly or splenomegaly appreciated. MUSCULOSKELETAL: Remains tepid. 2+ peripheral pitting edema. Pulses are present. Dusky discoloration of the plantar surface of the toes. NEUROLOGICAL: Patient is intubated, lethargic, arousable by opening eyes and withdrawing to bilateral upper and lower extremities but he does not follow any commands. Grimaces to pain. Pupils remain equal and reactive. Assessment and Plan - Assessment and Plan Plan: 1. Acute hypoxic respiratory failure -now intubated and mechanically ventilated 2. Acute encephalopathy, likely toxic metabolic -probably some degree of dementia at base, no improvement so far 3. Acute RI -followed by cardiology 4. Severe sepsis 5. Lactic/metabolic acidosis -lactic acid remains elevated despite adequate fluid resuscitation, likely in the setting of liver insufficiency 6. Bibasilar pneumonia 7. Transaminitis -liver enzymes are slowly trending down 8. JAVON -creatinine remains elevated and urine output remains low 9. Hypernatremia -slowly improving 10. Coagulopathy with thrombocytopenia -worsening 11. L2 compression deformity/acuity unknown 12. Moderate to large right-sided effusion with small left pleural effusion Plan Neuro: On Fentanyl infusion for sedation. Daily sedation vacation. 10/06 CT brain: No evidence of acute infarct, hemorrhage, mass or edema. neuro is following- Dr. Benites MRI brain: No acute infarct, acute hemorrhage, midline shift or extra- axial fluid collections. Mild cerebral atrophy. 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 Minimal small vessel ischemic changes within the periventricular and subcortical white matter bilaterally. Pulm: Continue with vent support keep sats >92% Bronchodilators, ICU vent bundle. s/p right sided thoracentesis with removal 1.5L ( Transudative fluid) CV: Monitor HR and BP kep MAP>65mmHg, on Levophed 2 tu Lactic acid trending down 2.3 10/07 from 5.9 No aspirin or heparin due to worsening thrombocytopenia and coagulopathy No statin due to elevated liver enzymes : Monitor renal function, I/O's, electrolytes replacement as needed. Place on Free water 250ml Q6, D5W@50ml/hr Cr: 1.71 from 1.64 ID: Continue Levaquin, monitor for signs of infections ( Fever, WBC) BC, urine cx 10/03: No growth, Followup on fluid, sputum cx 10/09: NGTD Panculture 10/12( Blood, sputum, urine) ID is following GI: On Prevacid 30mg daily. Monitor LFT's, Hepatitis profile negative Liver ultrasound reviewed -no gallstones or biliary tract obstruction. On Glucerna 1.5 with goal rate 50ml/hr GI is following re hyperbilirubinemia/elevated LFT's Heme: Monitor CBC, Coags, s/p Transfuse 1 packed leuko-reduced platelets, and 1 cryo due to worsening thrombocytopenia on 10/07 s/p Transfuse 1u FFP and 2u PLT 10/09 for thoracentesis Endo: SSI for glycemic control DVT prophylaxis with SCDs and GI prophylaxis with lansoprazole Palliative care is following Lines: Right IJ CVP 10/06 Condition critical Prognosis poor. Time spent on critical care excluding procedures 30 minutes
[2017-10-13] MEDS: Hypromellose 0.3% Opth Gel 10 GM Bottle EACH EYE SCH ×2 (08:07→20:03)
[2017-10-13] MEDS: Senna/Docusate Sodium 8.6/50 MG Tablet PO SCH ×2 (08:07→20:03)
[2017-10-13] MEDS: Dextrose 5% in Water Inj 1,000 ML IV.CONT SCH (08:08)
--- NOTE | 2017-10-13 10:15 | P.PNID ---
Subjective Remarks: ID coverage. Patient seen and examined. Records reviewed. Patient is an 82-year-old male, who was found unresponsive on the floor in his apartment. He was admitted October 03. Initial evaluation showed CT of the head with atrophy and no acute findings. CT of the chest with bilateral effusion. CT of the abdomen did not show any abscess, and it did show a compression fracture and L2. He also had an infrarenal abdominal aortic aneurysm that is about 3.7 cm. His white count then was 12,000, and his platelets were low. Urinalysis showed some very mild pyuria. He also had an elevated troponin and elevated lactic acid as well as creatinine. Patient ruled in for an TX, but cardiology felt that he is not a candidate for cardiac catheterization. He also had abnormal liver function tests. Patient was started on empiric antibiotics for sepsis and was given vancomycin and Zosyn. His blood cultures came back negative as well as a urine culture. On October 05 , he had increased respiratory distress and ended up getting intubated, and he has been on the vent since. He had a central line put in in his right IJ. Patient also was started on pressors. Since October 10, he started having fevers. Repeat blood cultures on October 09 and sputum cultures were okay. Patient also had undergone thoracenteses, and the fluid looks more transudative. He is currently off pressors. Remains on the vent. His LFTs remain elevated. He has had ultrasound of the abdomen which was okay. His chest x-ray is still showing bilateral effusions, worse on the left side but it is not worsening. Infectious disease consultation has been requested to evaluate the patient. On the ventilator. Eyes open and extra ocular movements appear grossly intact. Not following commands. Elevated temperature to 101.7 earlier. Allergies/Adverse Reactions: Allergies No Allergy Information Available Allergy (Unverified 10/03/17 18:31) ALTERED MENTAL STATUS Objective Vital Signs 10/12/17 12:00 10/12/17 14:00 10/12/17 14:20 Temperature 101.1 F H 100.7 F H Pulse Rate 91 H 83 Respiratory Rate 15 15 15 Blood Pressure 115/77 123/69 Pulse Oximetry 96 96 94 L 10/12/17 14:46 10/12/17 16:00 10/12/17 16:26 Temperature 100.8 F H 100.4 F H Pulse Rate 89 91 H Respiratory Rate 15 15 20 Blood Pressure 123/74 132/75 Pulse Oximetry 97 98 100 10/12/17 18:00 10/12/17 19:00 10/12/17 19:57 Temperature 100.4 F H 100.4 F H Pulse Rate 83 99 H Respiratory Rate 15 15 15 Blood Pressure 122/77 116/77 Pulse Oximetry 95 97 10/12/17 20:00 10/12/17 20:30 10/12/17 21:00 Temperature 100.8 F H 100.9 F H 101.1 F H Pulse Rate 113 H 112 H 125 H Respiratory Rate 16 4 L 37 H Blood Pressure 131/82 141/73 H 149/84 H Pulse Oximetry 96 97 84 L 10/12/17 21:15 10/12/17 21:30 10/12/17 21:35 Temperature Pulse Rate Respiratory Rate Blood Pressure 167/76 H 155/100 H 159/92 H Pulse Oximetry 10/12/17 22:00 10/12/17 22:30 10/13/17 00:00 Temperature 101.5 F H 101.7 F H 101.7 F H Pulse Rate 126 H 120 H 114 H Respiratory Rate 42 H 15 15 Blood Pressure 167/102 H 161/132 H 129/76 Pulse Oximetry 88 L 96 74 L 10/13/17 00:30 10/13/17 01:00 10/13/17 01:03 Temperature 101.7 F H 101.7 F H Pulse Rate 103 H 108 H Respiratory Rate 16 15 15 Blood Pressure 119/80 115/74 Pulse Oximetry 99 98 96 10/13/17 01:31 10/13/17 02:00 10/13/17 02:30 Temperature 101.5 F H 101.3 F H 101.3 F H Pulse Rate 100 H 107 H 99 H Respiratory Rate 15 15 15 Blood Pressure 122/68 109/75 108/64 Pulse Oximetry 97 96 96 10/13/17 03:00 10/13/17 03:30 10/13/17 03:51 Temperature 101.3 F H 101.3 F H Pulse Rate 98 H 104 H Respiratory Rate 15 15 18 Blood Pressure 114/82 146/90 H Pulse Oximetry 95 97 95 10/13/17 04:00 10/13/17 04:30 10/13/17 05:00 Temperature 101.5 F H 101.3 F H 101.1 F H Pulse Rate 105 H 100 H 98 H Respiratory Rate 16 16 15 Blood Pressure 124/80 119/76 116/76 Pulse Oximetry 96 97 95 10/13/17 05:30 10/13/17 06:00 10/13/17 07:00 Temperature 100.9 F H 100.8 F H 99.9 F H Pulse Rate 98 H 96 H 97 H Respiratory Rate 20 18 15 Blood Pressure 117/78 119/81 129/82 Pulse Oximetry 95 97 96 10/13/17 08:42 Temperature Pulse Rate Respiratory Rate 44 H Blood Pressure Pulse Oximetry 96 Intake & Output 10/12/17 10/13/17 10/13/17 18:59 06:59 18:59 Intake Total 900 / 900 755 / 755 Output Total 600 / 600 350 / 350 Balance 300 / 300 405 / 405 Weight 75.9 kg Intake: IV 250 / 250 180 / 180 fentaNYL 10 mcg/mL Premix Drip 250 / 250 180 / 180 2,500 mcg In 250 ml @ 50 MCG/HR 5 mls/hr IV.SIG TITRATE PRN Rx #:[id number] Oral 0 / 0 Tube Feeding 450 / 450 455 / 455 Water Bolus Amount 200 / 200 120 / 120 Output: Urine 600 / 600 Urine Amount (Catheter) 350 / 350 Indwelling Urethral Catheter 350 / 350 Other: Date of Last Bowel Movement 10/09/17 10/13/17 # Bowel Movements 1 10/12/17 09:25 Blood - Peripheral Aerobic Blood Culture - Pending 10/12/17 09:25 Blood - Peripheral Anaerobic Blood Culture - Final QNS - See aerobic report. 10/12/17 09:31 Blood - Peripheral Aerobic Blood Culture - Pending 10/12/17 09:31 Blood - Peripheral Anaerobic Blood Culture - Final QNS - See aerobic report. 10/12/17 20:10 Sputum - Endotracheal Gram Stain - Final 10/12/17 20:10 Sputum - Endotracheal Sputum Culture - Pending 10/12/17 20:10 Clean Catch Urine Urine Culture - Pending 10/09/17 14:40 Fluid - Pleural fluid Gram Stain - Final 10/09/17 14:40 Fluid - Pleural fluid Body Fluid Culture - Final No growth in 72 hours (aerobically and anaerobically ) 10/09/17 09:00 Sputum - Endotracheal Gram Stain - Final 10/09/17 09:00 Sputum - Endotracheal Sputum Culture - Final Rare growth normal respiratory lesli 10/09/17 14:40 Fluid - Pleural fluid Fungal Smear - Final No fungal elements seen 10/09/17 14:40 Fluid - Pleural fluid Fungal Culture - Pending Lab - Hematology Results 10/12/17 10/13/17 05:00 04:05 WBC 10.8 14.0 H RBC 4.20 L 4.67 Hgb 13.1 14.5 Hct 40.1 44.2 MCV 95.4 94.8 MCH 31.1 31.0 MCHC 32.6 32.7 RDW 17.7 H 17.9 H Plt Count 71 L 81 L MPV 10.6 10.6 Prelim Diff (Auto) Slide review pending Slide review pending Neut % (Auto) 89.8 H 91.4 H Lymph % (Auto) 2.6 L 2.5 L [place] % (Auto) 7.2 5.4 Eos % (Auto) 0.1 0.0 Baso % (Auto) 0.3 0.7 Neut # (Auto) 9.7 H 12.8 H Lymph # (Auto) 0.3 L 0.4 L [place] # (Auto) 0.8 0.8 Eos # (Auto) 0.0 0.0 Baso # (Auto) 0.0 0.1 WBC Differential . Diff Scan Auto diff confirmed Differential Comment . . Platelet Estimate Low L Platelet Morphology Normal Lab - Chemistry Results 10/11/17 10/11/17 10/12/17 13:17 18:28 00:48 Sodium Potassium Chloride Carbon Dioxide Anion Gap BUN Creatinine Estimated GFR POC Glucose 123 H 134 H 138 H Random Glucose Calcium Prot Corrected Calcium Phosphorus Magnesium Total Bilirubin AST ALT Alkaline Phosphatase Total Protein Albumin 10/12/17 10/12/17 10/12/17 05:00 12:14 23:46 Sodium 148 H Potassium 4.1 Chloride 108 H Carbon Dioxide 29.0 Anion Gap 11 BUN 86 H Creatinine 1.64 H Estimated GFR 41 L POC Glucose 144 H 117 H Random Glucose 121 H Calcium 7.6 L Prot Corrected Calcium Phosphorus 3.4 D Magnesium 3.1 H Total Bilirubin 10.2 H AST 106 H ALT 384 H Alkaline Phosphatase 73 Total Protein 5.0 L Albumin 1.9 L 10/13/17 10/13/17 04:05 05:38 Sodium 148 H Potassium 4.1 Chloride 109 H Carbon Dioxide 26.6 Anion Gap 12 BUN 92 H Creatinine 1.71 H Estimated GFR 39 L POC Glucose 125 H Random Glucose 148 H Calcium 7.4 L* Prot Corrected Calcium 8.3 L Phosphorus 4.1 Magnesium 3.1 H Total Bilirubin 8.9 H AST 126 H ALT 338 H Alkaline Phosphatase 131 H Total Protein 5.4 L Albumin 2.0 L Imaging: ITS Impressions Elbow X-Ray 10/03/17 18:31 CONCLUSION: There is discontinuity of the tip of a small olecranon spur without soft tissue swelling. Cannot exclude a fracture. Recommend correlation with clinical exam for point tenderness in this area. Hip X-Ray 10/03/17 18:31 CONCLUSION: No fracture seen. Lumbar Spine X-Ray 10/03/17 18:31 CONCLUSION: 60% anterior compression fracture of L2. No retropulsed fragments seen. Cervical Spine CT 10/03/17 18:35 CONCLUSION: 1. No evidence of compression deformity, fracture, or spondylolisthesis. 2. Advanced hypertrophic degenerative changes in the facet joints, more severe on the right. Abdomen/Pelvis CT 10/03/17 18:38 CONCLUSION: 1. Bilateral pleural effusions, right greater than left. 2. Nonobstructing 4 mm stone in the right renal collecting system. 3. 3.7 cm infrarenal abdominal aortic aneurysm. 4. Small fat-containing left inguinal hernia. Chest CT 10/03/17 18:38 CONCLUSION: 1. Large right and small left pleural effusion. 2. No fracture seen. No evidence of pneumothorax. Liver Ultrasound 10/04/17 00:00 CONCLUSION: 1. No evidence of gallstones or biliary tract obstruction. 2. There is a cyst along the upper pole the right kidney measuring 3 cm. 3. Bilateral pleural effusions. Head CT 10/06/17 00:00 CONCLUSION: 1. Stable evaluation the brain. 2. No evidence of acute infarct, hemorrhage, mass or edema. . Head MRI 10/09/17 00:00 CONCLUSION: 1. No acute infarct, acute hemorrhage, midline shift or extra-axial fluid collections. 2. Mild cerebral atrophy. 3. 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 4. Minimal small vessel ischemic changes within the periventricular and subcortical white matter bilaterally. Chest X-Ray 10/11/17 00:00 CONCLUSION: No significant change. Physical Exam: Physical Examination GENERAL: Patient is a thin, well-developed elderly male, awake, but not interacting, on the vent, not in respiratory distress. SKIN: Cool and dry. Has some purpura in BUE. Has cyanosis both feet, cold. HEAD: Atraumatic. Normocephalic. No temporal wasting, or tenderness. EYES: [place] conjunctiva. No petechia or hemorrhage. Pupils equal, round and reactive to light. Has scleral icterus and edema. No injection. EARS, NOSE AND THROAT: Nose without bleeding or purulent nasal discharge. Mucous membranes pink and moist. He is orally intubated. NECK: Trachea midline. Supple and not tender, no meningeal sign. RIJ central line looks ok CARDIOVASCULAR: Regular rate and rhythm. No murmurs, rubs or gallops heard RESPIRATORY: Coarse breath sounds bilaterally. Decreased breath sounds at the bases. No rales, wheezing or rhonchi ABDOMEN: Soft, no reaction to palpation. Bowel sounds present and normoactive. No organomegaly. EXTREMITIES: Has edema all extremities. Both hands are warm. Feet are cold with cyanosis both soles. NEUROLOGICAL: Eyes open, not following commands. No Babinski, no ankle clonus PSYCHIATRIC: Unable to assess LINE: No evidence of infection : Has alvarez in place, urine looks clear. Genitalia edematous Assessment and Plan - Plan Impression Fevers started 10/10 - has been on Vancomycin and Zosyn since 10/03 - sputum with NF - has line placed 10/06 - Bilirubin worsening - CXR with effusions; transudative - has alvarez. Urine culture has many yeast. - ?new infection - ?drug fever Respiratory failure, CHF TX Elevated LFT, ?due to shock, ?hepatic congestion Renal insufficiency, due to shock Recommendation Follow repeat BC - line and peripheral Monitor urine culture. Continue Levaquin empiric Add micafungin while monitoring culture. follow LFT, may need repeat US if bilirubin starts increasing again; it is decreasing Follow temps Follow C/S and adjust Abx Monitor progress PMFSH Smoking status: Unknown if ever smoked - Travel History Ebola Risk: Travel/Contact With Anyone From Affected Area/s: No
[2017-10-13 11:01] LABS: Platelet Morphology Normal (Normal)
--- NOTE | 2017-10-13 13:14 | P.PNGI ---
Subjective Interval history: Same overall condition, still critical Physical Exam Vital signs: Vital Signs 10/12/17 14:00 10/12/17 14:20 10/12/17 14:46 Temperature 100.7 F H 100.8 F H Pulse Rate 83 89 Respiratory Rate 15 15 15 Blood Pressure 123/69 123/74 Pulse Oximetry 96 94 L 97 10/12/17 16:00 10/12/17 16:26 10/12/17 18:00 Temperature 100.4 F H 100.4 F H Pulse Rate 91 H 83 Respiratory Rate 15 20 15 Blood Pressure 132/75 122/77 Pulse Oximetry 98 100 95 10/12/17 19:00 10/12/17 19:57 10/12/17 20:00 Temperature 100.4 F H 100.8 F H Pulse Rate 99 H 113 H Respiratory Rate 15 15 16 Blood Pressure 116/77 131/82 Pulse Oximetry 97 96 10/12/17 20:30 10/12/17 21:00 10/12/17 21:15 Temperature 100.9 F H 101.1 F H Pulse Rate 112 H 125 H Respiratory Rate 4 L 37 H Blood Pressure 141/73 H 149/84 H 167/76 H Pulse Oximetry 97 84 L 10/12/17 21:30 10/12/17 21:35 10/12/17 22:00 Temperature 101.5 F H Pulse Rate 126 H Respiratory Rate 42 H Blood Pressure 155/100 H 159/92 H 167/102 H Pulse Oximetry 88 L 10/12/17 22:30 10/13/17 00:00 10/13/17 00:30 Temperature 101.7 F H 101.7 F H 101.7 F H Pulse Rate 120 H 114 H 103 H Respiratory Rate 15 15 16 Blood Pressure 161/132 H 129/76 119/80 Pulse Oximetry 96 74 L 99 10/13/17 01:00 10/13/17 01:03 10/13/17 01:31 Temperature 101.7 F H 101.5 F H Pulse Rate 108 H 100 H Respiratory Rate 15 15 15 Blood Pressure 115/74 122/68 Pulse Oximetry 98 96 97 10/13/17 02:00 10/13/17 02:30 10/13/17 03:00 Temperature 101.3 F H 101.3 F H 101.3 F H Pulse Rate 107 H 99 H 98 H Respiratory Rate 15 15 15 Blood Pressure 109/75 108/64 114/82 Pulse Oximetry 96 96 95 10/13/17 03:30 10/13/17 03:51 10/13/17 04:00 Temperature 101.3 F H 101.5 F H Pulse Rate 104 H 105 H Respiratory Rate 15 18 16 Blood Pressure 146/90 H 124/80 Pulse Oximetry 97 95 96 10/13/17 04:30 10/13/17 05:00 10/13/17 05:30 Temperature 101.3 F H 101.1 F H 100.9 F H Pulse Rate 100 H 98 H 98 H Respiratory Rate 16 15 20 Blood Pressure 119/76 116/76 117/78 Pulse Oximetry 97 95 95 10/13/17 06:00 10/13/17 07:00 10/13/17 08:42 Temperature 100.8 F H 99.9 F H Pulse Rate 96 H 97 H Respiratory Rate 18 15 44 H Blood Pressure 119/81 129/82 Pulse Oximetry 97 96 96 10/13/17 12:00 Temperature Pulse Rate Respiratory Rate 25 H Blood Pressure Pulse Oximetry 96 Intake & Output 10/12/17 10/13/17 10/13/17 18:59 06:59 18:59 Intake Total 900 / 900 755 / 755 Output Total 600 / 600 350 / 350 Balance 300 / 300 405 / 405 Weight 75.9 kg Intake: IV 250 / 250 180 / 180 fentaNYL 10 mcg/mL Premix Drip 250 / 250 180 / 180 2,500 mcg In 250 ml @ 50 MCG/HR 5 mls/hr IV.SIG TITRATE PRN Rx #:[id number] Oral 0 / 0 Tube Feeding 450 / 450 455 / 455 Water Bolus Amount 200 / 200 120 / 120 Output: Urine 600 / 600 Urine Amount (Catheter) 350 / 350 Indwelling Urethral Catheter 350 / 350 Other: Date of Last Bowel Movement 10/09/17 10/13/17 # Bowel Movements 1 Narrative: GENERAL: Lightly sedated and intubated SKIN: Warm and dry. HEAD: Atraumatic. Normocephalic. EYES: Pupils equal and round. No scleral icterus. No injection or drainage. ENT: No nasal bleeding or discharge. Mucous membranes pink and moist. NECK: Trachea midline. No JVD. CARDIOVASCULAR: Regular rate and rhythm. RESPIRATORY: No accessory muscle use. Decreased breath sounds bilaterally. GASTROINTESTINAL: Abdomen soft, non-tender, nondistended. Hepatic and splenic margins not palpable. MUSCULOSKELETAL: Extremities without clubbing, cyanosis, or edema. No obvious deformities. NEUROLOGICAL: Intubated and lightly sedated - Urinary Catheter Management Indwelling Urethral Catheter Cath placed during this visit: yes Reason for continuing: Hourly intake/output Insertion date: 10/03/17 Insertion time: 18:00 Results - Labs CBC & Chem 7: 10/13/17 04:05 10/13/17 04:05 Laboratory Results - last 24 hr 10/12/17 10/12/17 10/13/17 20:10 23:46 04:05 WBC 14.0 H RBC 4.67 Hgb 14.5 Hct 44.2 MCV 94.8 MCH 31.0 MCHC 32.7 RDW 17.9 H Plt Count 81 L MPV 10.6 Prelim Diff (Auto) Slide review pending Neut % (Auto) 91.4 H Lymph % (Auto) 2.5 L [place] % (Auto) 5.4 Eos % (Auto) 0.0 Baso % (Auto) 0.7 Neut # (Auto) 12.8 H Lymph # (Auto) 0.4 L [place] # (Auto) 0.8 Eos # (Auto) 0.0 Baso # (Auto) 0.1 WBC Differential . Diff Scan Auto diff confirmed Differential Comment . Platelet Estimate Low L Platelet Morphology Normal PT INR Sodium Potassium Chloride Carbon Dioxide Anion Gap BUN Creatinine Estimated GFR POC Glucose 117 H Random Glucose Calcium Prot Corrected Calcium Phosphorus Magnesium Total Bilirubin AST ALT Alkaline Phosphatase Total Protein Albumin Urine Color [place] Urine Clarity Cloudy H Urine pH 5.0 Ur Specific [place] 1.024 Urine Protein 30 H Urine Glucose (UA) Negative Urine Ketones Negative Urine Occult Blood Small H Urine Nitrate Negative Urine Bilirubin Small H Urine Ictotest Positive H Urine Urobilinogen 2.0 H Ur Leukocyte Esterase Negative Urine RBC 13 H Urine WBC 1 Amorphous Sediment Rare H Urine Bacteria Rare H Urine Yeast Many H Micro UA Comment Culture indicated Ur Microscopic Review Not Reportable Urine Culture Comments Culture indicated 10/13/17 10/13/17 10/13/17 04:05 04:05 05:38 WBC RBC Hgb Hct MCV MCH MCHC RDW Plt Count MPV Prelim Diff (Auto) Neut % (Auto) Lymph % (Auto) [place] % (Auto) Eos % (Auto) Baso % (Auto) Neut # (Auto) Lymph # (Auto) [place] # (Auto) Eos # (Auto) Baso # (Auto) WBC Differential Diff Scan Differential Comment Platelet Estimate Platelet Morphology PT 15.2 H INR 1.5 Sodium 148 H Potassium 4.1 Chloride 109 H Carbon Dioxide 26.6 Anion Gap 12 BUN 92 H Creatinine 1.71 H Estimated GFR 39 L POC Glucose 125 H Random Glucose 148 H Calcium 7.4 L* Prot Corrected Calcium 8.3 L Phosphorus 4.1 Magnesium 3.1 H Total Bilirubin 8.9 H AST 126 H ALT 338 H Alkaline Phosphatase 131 H Total Protein 5.4 L Albumin 2.0 L Urine Color Urine Clarity Urine pH Ur Specific [place] Urine Protein Urine Glucose (UA) Urine Ketones Urine Occult Blood Urine Nitrate Urine Bilirubin Urine Ictotest Urine Urobilinogen Ur Leukocyte Esterase Urine RBC Urine WBC Amorphous Sediment Urine Bacteria Urine Yeast Micro UA Comment Ur Microscopic Review Urine Culture Comments 10/13/17 12:39 WBC RBC Hgb Hct MCV MCH MCHC RDW Plt Count MPV Prelim Diff (Auto) Neut % (Auto) Lymph % (Auto) [place] % (Auto) Eos % (Auto) Baso % (Auto) Neut # (Auto) Lymph # (Auto) [place] # (Auto) Eos # (Auto) Baso # (Auto) WBC Differential Diff Scan Differential Comment Platelet Estimate Platelet Morphology PT INR Sodium Potassium Chloride Carbon Dioxide Anion Gap BUN Creatinine Estimated GFR POC Glucose 203 H Random Glucose Calcium Prot Corrected Calcium Phosphorus Magnesium Total Bilirubin AST ALT Alkaline Phosphatase Total Protein Albumin Urine Color Urine Clarity Urine pH Ur Specific [place] Urine Protein Urine Glucose (UA) Urine Ketones Urine Occult Blood Urine Nitrate Urine Bilirubin Urine Ictotest Urine Urobilinogen Ur Leukocyte Esterase Urine RBC Urine WBC Amorphous Sediment Urine Bacteria Urine Yeast Micro UA Comment Ur Microscopic Review Urine Culture Comments Microbiology 10/12/17 09:25 Blood - Peripheral Aerobic Blood Culture - Preliminary No growth in 1 day 10/12/17 09:25 Blood - Peripheral Anaerobic Blood Culture - Final QNS - See aerobic report. 10/12/17 09:31 Blood - Peripheral Aerobic Blood Culture - Preliminary No growth in 1 day 10/12/17 09:31 Blood - Peripheral Anaerobic Blood Culture - Final QNS - See aerobic report. 10/12/17 20:10 Clean Catch Urine Urine Culture - Preliminary No growth in 24 hours 10/12/17 20:10 Sputum - Endotracheal Gram Stain - Final Assessment and Plan - Plan Elevated LFTs (10/03) T bili-3.3 [id number] Alk [id number] LFTs have been trending down since admission except the T bili which elevated up to 14.1 but is down to 10.2 today. Unable to obtain history from pt he is mechanically ventilated and on low dose Fentanyl for sedation. His eyes are open but he does not track. According to records pt was found unresponsive in his home. Elevation in LFTs likely multifactorial, shock liver is likely, as well as probable rhabdomyolysis. Unsure of underlying liver disease, unable to obtain history regarding risk factors. Thrombocytopenia, coagulopathy, and hypoalbuminemia noted. Liver US (10/04) No evidence of gallstones or biliary tract obstruction. Hepatitis panel negative Plan: Check Liver work up Maintain BP Avoid hepatotoxins Will follow up with you periodically.
[2017-10-13] MEDS: fentaNYL 10 mcg/mL Premix Drip 2,500 MCG/250 ML BAG IV.SIG PRN (19:58)
[2017-10-14] MEDS: Insulin NovoLOG Aspart Correctional Sugar Inj SQ SCH ×4 (00:10→18:06)
[2017-10-14] MEDS: Dextrose 5% in Water Inj 1,000 ML IV.CONT SCH (04:10)
[2017-10-14 05:33] LABS: Baso % (Auto) 0.1 % (0.0-2.0); Hematocrit 43.4 % (39.0-51.0); Hemoglobin 14.2 gm/dL (13.0-17.0); Lymph # (Auto) 0.4 th/mm3 (1.0-4.8); Lymph % (Auto) 2.4 % (9.0-44.0); Mean Corpuscular HGB Conc 32.6 % (32.0-36.0); Mean Corpuscular Hemoglobin 31.1 pg (27.0-34.0); Mean Corpuscular Volume 95.6 fL (80.0-100.0); Mono # (Auto) 0.8 th/mm3 (0.0-0.9); Neut # (Auto) 14.1 th/mm3 (1.8-7.7); Neut % (Auto) 92.5 % (16.0-70.0); Platelet Count 86 th/mm3 (150-450); Red Blood Count 4.55 mil/mm3 (4.50-5.90); Red Cell Distribution Width 17.5 % (11.6-17.2); White Blood Count 15.2 th/mm3 (4.0-11.0)
[2017-10-14 06:04] LABS: Albumin 1.7 g/dL (3.4-5.0); Calcium 7.1 mg/dL (8.5-10.1); Carbon Dioxide 29.5 meq/L (21.0-32.0); Total Protein 5.1 g/dL (6.4-8.2)
[2017-10-14 06:06] LABS: Potassium 4.8 meq/L (3.5-5.1)
[2017-10-14] MEDS: Senna/Docusate Sodium 8.6/50 MG Tablet PO SCH ×2 (09:04→21:55)
[2017-10-14] MEDS: Hypromellose 0.3% Opth Gel 10 GM Bottle EACH EYE SCH ×2 (09:04→21:54)
[2017-10-14 10:12] LABS: Lymphocytes 1 % (9-44); Monocytes 3 % (0-8); Myelocytes 1 % (0-0)
--- NOTE | 2017-10-14 10:13 | P.PNCC ---
Subjective Subjective Remarks/Hospital Course: Patient is an elderly male with unknown past medical history who was found on the floor of his apartment with door open. Apparently neighbors checked on him and found him unresponsive on the floor. Patient was brought to the emergency department and underwent extensive workup to rule out trauma. CT of the head showed moderate to severe atrophy, CT of the chest showed moderate right-sided and small left effusion. 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 X-ray of his right elbow showed a possible olecranon spur discontinuity. Multiple lab abnormalities white count was 12.8 with 87% neutrophils platelet count 60 INR was 2.3. UA showed evidence of UTI, patient received a dose of cefepime for severe sepsis. Also his troponin was elevated at 6.8, lactic acid was 8.3 BUN 67 creatinine 2.71. Patient received 2 L normal saline boluses. Dr. Jaimes from cardiology was contacted for an STEMI. Due to poor mentation and multiorgan failure patient was deemed not a candidate for cardiac catheterization. Cannot use aspirin or heparin due to platelet count of 60,000 INR of 2.3. Other abnormal labs included transaminitis and elevated CPK. I evaluated the patient in the emergency department. He is severely encephalopathic appears critical, tachypneic but protecting airway. He is not able to say his name or mouth any words. He continues to move his head side to side but not communicative. I have added additional 2 L normal saline bolus, give 2 A of bicarb. Check ABG. Broad-spectrum antibiotics with vancomycin 1 dose and renally dosed Zosyn. Patient is very critically ill and has multiorgan failure, overall prognosis appears very poor. 10/04: This morning patient is not on any pressors. He is awake, agitated at times requiring restraints. He is saying incomprehensible words. T-max of 99.1. Urine output is minimal. 10/05: No events over the night. T-max of 98.4. Patient's mental status remains unchanged. Lethargic but easily arousable, not following any commands, saying incomprehensible words. Urine output of 525 mL's over the last 24 hours. Patient identified as Pablo Slater, 82-year-old gentleman. Still no family contact yet. 10/06: Over the night, patient developed worsening hypoxia with periods of apnea therefore he was intubated and now he is mechanically ventilated. This morning he is on no sedation, thrashing in bed, not following any commands. T-max of 99.9. Urine output is low, 200 mL's over the last 24 hours. Low blood pressure over the night noted, 1000 mL's of LR bolus given map remains borderline low normal. Morning chest x-ray reviewed, bibasilar infiltrates, right greater than left. ET tube is in good position. ROS -unobtainable due to patient's mental status SUBJECTIVE: 10/07: Low-grade temperatures overnight. Remains on norepinephrine drip at 2 mcg /min. Arousable on fentanyl drip at 100 mg an hour. No bowel movement. 10/08 Patient remains intubated and sedated with Fentanyl infusion. Afebrile. On Levophed 1 tu. Renal function is improving with Cr: 1.51 from 1.71. 10/09 No events overnight intubated and sedated with Fentanyl infusion on Levophed 2 mics. T:99.7. 10/10 Patient remains intubated and sedated with Fentanyl drip. s/p right sided thoracentesis yesterday with removal 1.5L (transudative fluid) On Levophed 2 mics. 10/11 : Remains sedated, orally intubated on mechanical ventilation. 10/12 Patient remains intubated and on Fentanyl infusion for sedation. T:101.5 last night. 10/13 Patient remains intubated and sedated, T 100.8 10/14 Patient remains intubated and sedated . Afebrile. Objective Vital Signs / I&O: Vital Signs 10/13/17 11:00 10/13/17 12:00 10/13/17 13:00 Temperature 99.0 F 98.8 F 98.4 F Pulse Rate 92 H 93 H 88 Respiratory Rate 30 H 32 H 26 H Blood Pressure 133/81 133/85 129/81 Pulse Oximetry 96 97 95 10/13/17 14:00 10/13/17 14:30 10/13/17 15:00 Temperature 98.2 F 98.2 F 98.2 F Pulse Rate 87 87 90 Respiratory Rate 25 H 18 23 Blood Pressure 121/75 124/75 134/76 Pulse Oximetry 97 98 95 10/13/17 15:30 10/13/17 15:56 10/13/17 16:00 Temperature 98.1 F 98.2 F Pulse Rate 87 87 Respiratory Rate 22 19 20 Blood Pressure 120/83 113/78 Pulse Oximetry 97 100 10/13/17 16:30 10/13/17 17:00 10/13/17 17:30 Temperature 98.2 F 98.4 F 98.4 F Pulse Rate 91 H 96 H 81 Respiratory Rate 25 H 15 15 Blood Pressure 115/74 117/74 113/72 Pulse Oximetry 97 96 96 10/13/17 18:00 10/13/17 19:00 10/13/17 19:30 Temperature 98.4 F 99.0 F 99.0 F Pulse Rate 91 H 100 H 99 H Respiratory Rate 15 26 H 41 H Blood Pressure 119/80 124/82 119/79 Pulse Oximetry 98 95 95 10/13/17 20:00 10/13/17 20:01 10/13/17 20:15 Temperature 99.0 F 99.0 F Pulse Rate 104 H 102 H Respiratory Rate 25 H 37 H 26 H Blood Pressure 132/73 Pulse Oximetry 95 93 L 95 10/13/17 20:30 10/13/17 21:00 10/13/17 21:30 Temperature 99.0 F 99.0 F 99.0 F Pulse Rate 90 96 H 99 H Respiratory Rate 17 16 31 H Blood Pressure 123/69 137/80 130/82 Pulse Oximetry 95 95 93 L 10/13/17 22:00 10/13/17 22:30 10/13/17 23:00 Temperature 99.1 F 99.1 F 99.3 F Pulse Rate 95 H 96 H 88 Respiratory Rate 18 15 15 Blood Pressure 123/75 125/73 113/63 Pulse Oximetry 95 96 96 10/13/17 23:30 10/13/17 23:54 10/14/17 00:00 Temperature 99.3 F 99.5 F Pulse Rate 95 H 96 H Respiratory Rate 25 H 15 29 H Blood Pressure 120/79 123/75 Pulse Oximetry 97 95 95 10/14/17 00:30 10/14/17 01:00 10/14/17 01:30 Temperature 99.5 F 99.5 F 99.3 F Pulse Rate 91 H 90 88 Respiratory Rate 16 14 17 Blood Pressure 116/68 116/68 110/64 Pulse Oximetry 96 96 96 10/14/17 02:00 10/14/17 02:30 10/14/17 03:00 Temperature 99.3 F 99.1 F 99.3 F Pulse Rate 83 82 82 Respiratory Rate 26 H 28 H 25 H Blood Pressure 107/62 106/62 105/62 Pulse Oximetry 96 97 99 10/14/17 03:52 10/14/17 03:58 10/14/17 04:00 Temperature 98.8 F Pulse Rate 90 92 H Respiratory Rate 15 21 27 H Blood Pressure 106/62 Pulse Oximetry 93 L 90 L 10/14/17 05:00 10/14/17 06:00 10/14/17 07:00 Temperature 97.9 F 98.1 F Pulse Rate 90 89 90 Respiratory Rate 15 20 22 Blood Pressure Pulse Oximetry 96 93 L 93 L 10/14/17 07:48 10/14/17 08:22 10/14/17 09:00 Temperature 98.4 F 98.6 F Pulse Rate 93 H 87 Respiratory Rate 29 H 15 20 Blood Pressure 103/62 97/59 L Pulse Oximetry 94 L 96 94 L Intake & Output 10/13/17 10/14/17 10/14/17 18:59 06:59 18:59 Intake Total 1371 / 1371 2143 / 2143 Output Total 1000 / 1000 1050 / 1050 Balance 371 / 371 1093 / 1093 Weight 75.8 kg Intake: IV 100 / 100 1070 / 1070 D5W Inj 1,000 ML @ 50 mls/hr IV 1000 / 1000 .CONT .Q20H [facility] Rx#:[id number] Mycamine Inj 100 MG In NS Inj 100 / 100 100 ML @ 100 mls/hr IV.SIG Q24H [facility] Rx#:[id number] fentaNYL 10 mcg/mL Premix Drip 70 / 70 2,500 mcg In 250 ml @ 50 MCG/HR 5 mls/hr IV.SIG TITRATE PRN Rx #:[id number] Tube Feeding 671 / 671 593 / 593 Water Bolus Amount 600 / 600 480 / 480 Output: Urine Amount (Catheter) 1000 / 1000 1050 / 1050 Indwelling Urethral Catheter 1000 / 1000 1050 / 1050 Other: Date of Last Bowel Movement 10/13/17 10/14/17 10/13/17 # Bowel Movements 2 # Incontinent Bowel Movements 1 Result Diagrams: 10/14/17 04:25 10/14/17 04:25 Other Results: Laboratory Results - last 12 hr 10/13/17 10/14/17 10/14/17 23:38 04:25 04:25 WBC 15.2 H RBC 4.55 Hgb 14.2 Hct 43.4 MCV 95.6 MCH 31.1 MCHC 32.6 RDW 17.5 H Plt Count 86 L MPV 10.0 Prelim Diff (Auto) Slide review pending Neut % (Auto) 92.5 H Lymph % (Auto) 2.4 L Lyon % (Auto) 5.0 Eos % (Auto) 0.0 Baso % (Auto) 0.1 Neut # (Auto) 14.1 H Lymph # (Auto) 0.4 L Lyon # (Auto) 0.8 Eos # (Auto) 0.0 Baso # (Auto) 0.0 Differential Comment . Sodium 147 H Potassium 4.8 Chloride 108 H Carbon Dioxide 29.5 Anion Gap 10 BUN 78 H Creatinine 1.27 Estimated GFR 54 L POC Glucose 138 H Random Glucose 112 H Calcium 7.1 L* Prot Corrected Calcium 8.2 L Total Bilirubin 6.1 H AST 149 H ALT 251 H Alkaline Phosphatase 168 H Total Protein 5.1 L Albumin 1.7 L 10/14/17 06:19 WBC RBC Hgb Hct MCV MCH MCHC RDW Plt Count MPV Prelim Diff (Auto) Neut % (Auto) Lymph % (Auto) Lyon % (Auto) Eos % (Auto) Baso % (Auto) Neut # (Auto) Lymph # (Auto) Lyon # (Auto) Eos # (Auto) Baso # (Auto) Differential Comment Sodium Potassium Chloride Carbon Dioxide Anion Gap BUN Creatinine Estimated GFR POC Glucose 128 H Random Glucose Calcium Prot Corrected Calcium Total Bilirubin AST ALT Alkaline Phosphatase Total Protein Albumin Imaging: Elbow X-Ray 10/03/17 18:31 CONCLUSION: There is discontinuity of the tip of a small olecranon spur without soft tissue swelling. Cannot exclude a fracture. Recommend correlation with clinical exam for point tenderness in this area. Hip X-Ray 10/03/17 18:31 CONCLUSION: No fracture seen. Lumbar Spine X-Ray 10/03/17 18:31 CONCLUSION: 60% anterior compression fracture of L2. No retropulsed fragments seen. Cervical Spine CT 10/03/17 18:35 CONCLUSION: 1. No evidence of compression deformity, fracture, or spondylolisthesis. 2. Advanced hypertrophic degenerative changes in the facet joints, more severe on the right. Abdomen/Pelvis CT 10/03/17 18:38 CONCLUSION: 1. Bilateral pleural effusions, right greater than left. 2. Nonobstructing 4 mm stone in the right renal collecting system. 3. 3.7 cm infrarenal abdominal aortic aneurysm. 4. Small fat-containing left inguinal hernia. Chest CT 10/03/17 18:38 CONCLUSION: 1. Large right and small left pleural effusion. 2. No fracture seen. No evidence of pneumothorax. Liver Ultrasound 10/04/17 00:00 CONCLUSION: 1. No evidence of gallstones or biliary tract obstruction. 2. There is a cyst along the upper pole the right kidney measuring 3 cm. 3. Bilateral pleural effusions. Head CT 10/06/17 00:00 CONCLUSION: 1. Stable evaluation the brain. 2. No evidence of acute infarct, hemorrhage, mass or edema. . Head MRI 10/09/17 00:00 CONCLUSION: 1. No acute infarct, acute hemorrhage, midline shift or extra-axial fluid collections. 2. Mild cerebral atrophy. 3. 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 4. Minimal small vessel ischemic changes within the periventricular and subcortical white matter bilaterally. Chest X-Ray 10/11/17 00:00 CONCLUSION: No significant change. Objective Remarks: GENERAL: Elderly gentleman, poorly nourished, very deconditioned, ill-appearing , intubated HEENT: Pupils are equal and reactive. Sclerae anicteric. Neck supple without rigidity. Orally intubated. Neck veins are nondistended. No carotid bruit. CHEST: Scattered coarse breath sounds bilateral, decreased breath sounds at bases but overall improved air entry. No wheezes. CARDIOVASCULAR: Regular heart sounds, without murmurs. ABDOMEN: Soft, nontender, nondistended. Bowel sounds are decreased. No hepatomegaly or splenomegaly appreciated. MUSCULOSKELETAL: Remains tepid. 2+ peripheral pitting edema. Pulses are present. Dusky discoloration of the plantar surface of the toes. NEUROLOGICAL: Patient is intubated, lethargic, arousable by opening eyes and withdrawing to bilateral upper and lower extremities but he does not follow any commands. Grimaces to pain. Pupils remain equal and reactive. Assessment and Plan - Assessment and Plan Plan: 1. Acute hypoxic respiratory failure -now intubated and mechanically ventilated 2. Acute encephalopathy, likely toxic metabolic -probably some degree of dementia at base, no improvement so far 3. Acute [place] -followed by cardiology 4. Severe sepsis 5. Lactic/metabolic acidosis -lactic acid remains elevated despite adequate fluid resuscitation, likely in the setting of liver insufficiency 6. Bibasilar pneumonia 7. Transaminitis -liver enzymes are slowly trending down 8. JAVON -creatinine remains elevated and urine output remains low 9. Hypernatremia -slowly improving 10. Coagulopathy with thrombocytopenia -worsening 11. L2 compression deformity/acuity unknown 12. Moderate to large right-sided effusion with small left pleural effusion Plan Neuro: On Fentanyl infusion for sedation. Daily sedation vacation. 10/06 CT brain: No evidence of acute infarct, hemorrhage, mass or edema. neuro is following- Dr. Benites MRI brain: No acute infarct, acute hemorrhage, midline shift or extra- axial fluid collections. Mild cerebral atrophy. 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 Minimal small vessel ischemic changes within the periventricular and subcortical white matter bilaterally. Pulm: Continue with vent support keep sats >92% Bronchodilators, ICU vent bundle. s/p right sided thoracentesis with removal 1.5L ( Transudative fluid) SBT daily as ruth CV: Monitor HR and BP kep MAP>65mmHg, on Levophed 2 tu Lactic acid trending down 2.3 10/07 from 5.9 No aspirin or heparin due to worsening thrombocytopenia and coagulopathy No statin due to elevated liver enzymes : Monitor renal function, I/O's, electrolytes replacement as needed. On Free water 250ml Q6, D5W@50ml/hr Renal function is improving with Cr: 1.27 from 1.71 ID: Continue Levaquin, Micafungin per ID, monitor for signs of infections ( Fever, WBC) BC, urine cx 10/03: No growth, Followup on fluid, sputum cx 10/09: NGTD Panculture 10/12( Blood, sputum, urine) ID is following 10/12 Urine cx: Yeast GI: On Prevacid 30mg daily. Monitor LFT's, Hepatitis profile negative Liver ultrasound reviewed -no gallstones or biliary tract obstruction. On Glucerna 1.5 @ 50ml/hr GI is following re hyperbilirubinemia/elevated LFT's Heme: Monitor CBC, Coags, s/p Transfuse 1 packed leuko-reduced platelets, and 1 cryo due to worsening thrombocytopenia on 10/07 s/p Transfuse 1u FFP and 2u PLT 10/09 for thoracentesis Endo: SSI for glycemic control DVT prophylaxis with SCDs and GI prophylaxis with lansoprazole Palliative care is following Lines: Right IJ CVP 10/06 Condition critical Prognosis poor. Time spent on critical care excluding procedures 30 minutes
[2017-10-14 10:14] LABS: Polychromasia 2.2 % (0.0-1.9)
[2017-10-14] MEDS: Levofloxacin 500 mg Premix Inj 500 MG/100 ML PIGGYBACK IV.SIG SCH (11:00)
--- NOTE | 2017-10-14 12:50 | P.PNID ---
Subjective Remarks: ID coverage. Patient seen and examined. Records reviewed. Patient is an 82-year-old male, who was found unresponsive on the floor in his apartment. He was admitted October 03. Initial evaluation showed CT of the head with atrophy and no acute findings. CT of the chest with bilateral effusion. CT of the abdomen did not show any abscess, and it did show a compression fracture and L2. He also had an infrarenal abdominal aortic aneurysm that is about 3.7 cm. His white count then was 12,000, and his platelets were low. Urinalysis showed some very mild pyuria. He also had an elevated troponin and elevated lactic acid as well as creatinine. Patient ruled in for an CT, but cardiology felt that he is not a candidate for cardiac catheterization. He also had abnormal liver function tests. Patient was started on empiric antibiotics for sepsis and was given vancomycin and Zosyn. His blood cultures came back negative as well as a urine culture. On October 05 , he had increased respiratory distress and ended up getting intubated, and he has been on the vent since. He had a central line put in in his right IJ. Patient also was started on pressors. Since October 10, he started having fevers. Repeat blood cultures on October 09 and sputum cultures were okay. Patient also had undergone thoracenteses, and the fluid looks more transudative. He is currently off pressors. Remains on the vent. His LFTs remain elevated. He has had ultrasound of the abdomen which was okay. His chest x-ray is still showing bilateral effusions, worse on the left side but it is not worsening. Infectious disease consultation has been requested to evaluate the patient. On the ventilator. Moving head from side to side. Eyes open and extra ocular movements appear grossly intact. Not following commands. Temp lower. Allergies/Adverse Reactions: Allergies No Allergy Information Available Allergy (Unverified 10/03/17 18:31) ALTERED MENTAL STATUS Objective Vital Signs 10/13/17 13:00 10/13/17 14:00 10/13/17 14:30 Temperature 98.4 F 98.2 F 98.2 F Pulse Rate 88 87 87 Respiratory Rate 26 H 25 H 18 Blood Pressure 129/81 121/75 124/75 Pulse Oximetry 95 97 98 10/13/17 15:00 10/13/17 15:30 10/13/17 15:56 Temperature 98.2 F 98.1 F Pulse Rate 90 87 Respiratory Rate 23 22 19 Blood Pressure 134/76 120/83 Pulse Oximetry 95 97 10/13/17 16:00 10/13/17 16:30 10/13/17 17:00 Temperature 98.2 F 98.2 F 98.4 F Pulse Rate 87 91 H 96 H Respiratory Rate 20 25 H 15 Blood Pressure 113/78 115/74 117/74 Pulse Oximetry 100 97 96 10/13/17 17:30 10/13/17 18:00 10/13/17 19:00 Temperature 98.4 F 98.4 F 99.0 F Pulse Rate 81 91 H 100 H Respiratory Rate 15 15 26 H Blood Pressure 113/72 119/80 124/82 Pulse Oximetry 96 98 95 10/13/17 19:30 10/13/17 20:00 10/13/17 20:01 Temperature 99.0 F 99.0 F 99.0 F Pulse Rate 99 H 104 H 102 H Respiratory Rate 41 H 25 H 37 H Blood Pressure 119/79 132/73 Pulse Oximetry 95 95 93 L 10/13/17 20:15 10/13/17 20:30 10/13/17 21:00 Temperature 99.0 F 99.0 F Pulse Rate 90 96 H Respiratory Rate 26 H 17 16 Blood Pressure 123/69 137/80 Pulse Oximetry 95 95 95 10/13/17 21:30 10/13/17 22:00 10/13/17 22:30 Temperature 99.0 F 99.1 F 99.1 F Pulse Rate 99 H 95 H 96 H Respiratory Rate 31 H 18 15 Blood Pressure 130/82 123/75 125/73 Pulse Oximetry 93 L 95 96 10/13/17 23:00 10/13/17 23:30 10/13/17 23:54 Temperature 99.3 F 99.3 F Pulse Rate 88 95 H Respiratory Rate 15 25 H 15 Blood Pressure 113/63 120/79 Pulse Oximetry 96 97 95 10/14/17 00:00 10/14/17 00:30 10/14/17 01:00 Temperature 99.5 F 99.5 F 99.5 F Pulse Rate 96 H 91 H 90 Respiratory Rate 29 H 16 14 Blood Pressure 123/75 116/68 116/68 Pulse Oximetry 95 96 96 10/14/17 01:30 10/14/17 02:00 10/14/17 02:30 Temperature 99.3 F 99.3 F 99.1 F Pulse Rate 88 83 82 Respiratory Rate 17 26 H 28 H Blood Pressure 110/64 107/62 106/62 Pulse Oximetry 96 96 97 10/14/17 03:00 10/14/17 03:52 10/14/17 03:58 Temperature 99.3 F Pulse Rate 82 90 Respiratory Rate 25 H 15 21 Blood Pressure 105/62 106/62 Pulse Oximetry 99 93 L 10/14/17 04:00 10/14/17 05:00 10/14/17 06:00 Temperature 98.8 F 97.9 F Pulse Rate 92 H 90 89 Respiratory Rate 27 H 15 20 Blood Pressure Pulse Oximetry 90 L 96 93 L 10/14/17 07:00 10/14/17 07:48 10/14/17 08:00 Temperature 98.1 F Pulse Rate 90 93 H Respiratory Rate 22 29 H Blood Pressure Pulse Oximetry 93 L 94 L 10/14/17 08:22 10/14/17 09:00 10/14/17 10:00 Temperature 98.4 F 98.6 F 98.6 F Pulse Rate 93 H 87 86 Respiratory Rate 15 20 16 Blood Pressure 103/62 97/59 L 93/58 L Pulse Oximetry 96 94 L 94 L 10/14/17 12:00 10/14/17 12:05 Temperature 98.7 F Pulse Rate 87 Respiratory Rate 26 H 15 Blood Pressure 97/57 L Pulse Oximetry 93 L 93 L Intake & Output 10/13/17 10/14/17 10/14/17 18:59 06:59 18:59 Intake Total 1371 / 1371 2143 / 2143 200 / 200 Output Total 1000 / 1000 1050 / 1050 Balance 371 / 371 1093 / 1093 200 / 200 Weight 75.8 kg Intake: IV 100 / 100 1070 / 1070 200 / 200 D5W Inj 1,000 ML @ 50 mls/hr IV 1000 / 1000 .CONT .Q20H JIG[facility] Rx#:[id number] Levaquin 500 mg Premix Inj 500 100 / 100 mg In 100 ml @ 100 mls/hr IV. SIG Q48H JIGNA Rx#:[id number] Mycamine Inj 100 MG In NS Inj 100 / 100 100 / 100 100 ML @ 100 mls/hr IV.SIG Q24H JIGNA Rx#:[id number] fentaNYL 10 mcg/mL Premix Drip 70 / 70 2,500 mcg In 250 ml @ 50 MCG/HR 5 mls/hr IV.SIG TITRATE PRN Rx #:[id number] Tube Feeding 671 / 671 593 / 593 Water Bolus Amount 600 / 600 480 / 480 Output: Urine Amount (Catheter) 1000 / 1000 1050 / 1050 Indwelling Urethral Catheter 1000 / 1000 1050 / 1050 Other: Date of Last Bowel Movement 10/13/17 10/14/17 10/13/17 # Bowel Movements 2 # Incontinent Bowel Movements 1 10/12/17 20:10 Sputum - Endotracheal Gram Stain - Final 10/12/17 20:10 Sputum - Endotracheal Sputum Culture - Final Heavy growth normal respiratory lesli 10/12/17 09:25 Blood - Peripheral Aerobic Blood Culture - Preliminary No growth in 2 days 10/12/17 09:25 Blood - Peripheral Anaerobic Blood Culture - Final QNS - See aerobic report. 10/12/17 09:31 Blood - Peripheral Aerobic Blood Culture - Preliminary No growth in 2 days 10/12/17 09:31 Blood - Peripheral Anaerobic Blood Culture - Final QNS - See aerobic report. 10/12/17 20:10 Clean Catch Urine Urine Culture - Preliminary Yeast species 10/09/17 14:40 Fluid - Pleural fluid Gram Stain - Final 10/09/17 14:40 Fluid - Pleural fluid Body Fluid Culture - Final No growth in 72 hours (aerobically and anaerobically ) 10/09/17 09:00 Sputum - Endotracheal Gram Stain - Final 10/09/17 09:00 Sputum - Endotracheal Sputum Culture - Final Rare growth normal respiratory lesli Lab - Hematology Results 10/13/17 10/14/17 04:05 04:25 WBC 14.0 H 15.2 H RBC 4.67 4.55 Hgb 14.5 14.2 Hct 44.2 43.4 MCV 94.8 95.6 MCH 31.0 31.1 MCHC 32.7 32.6 RDW 17.9 H 17.5 H Plt Count 81 L 86 L MPV 10.6 10.0 Prelim Diff (Auto) Slide review pending Slide review pending Neut % (Auto) 91.4 H 92.5 H Lymph % (Auto) 2.5 L 2.4 L [place] % (Auto) 5.4 5.0 Eos % (Auto) 0.0 0.0 Baso % (Auto) 0.7 0.1 Neut # (Auto) 12.8 H 14.1 H Lymph # (Auto) 0.4 L 0.4 L [place] # (Auto) 0.8 0.8 Eos # (Auto) 0.0 0.0 Baso # (Auto) 0.1 0.0 WBC Differential . Manual diff final Diff Scan Auto diff confirmed Seg Neuts % (Manual) 87 H Band Neuts % (Manual) 8 H Lymphocytes % (Manual) 1 L Monocytes % (Manual) 3 Myelocytes % (Man) 1 H Abs Neuts (Manual) 14.6 H Differential Comment . . Platelet Estimate Low L Low L Platelet Morphology Normal Enlarged H Polychromasia 2.2 H Lab - Chemistry Results 10/12/17 10/13/17 10/13/17 23:46 04:05 05:38 Sodium 148 H Potassium 4.1 Chloride 109 H Carbon Dioxide 26.6 Anion Gap 12 BUN 92 H Creatinine 1.71 H Estimated GFR 39 L POC Glucose 117 H 125 H Random Glucose 148 H Calcium 7.4 L* Prot Corrected Calcium 8.3 L Phosphorus 4.1 Magnesium 3.1 H Total Bilirubin 8.9 H AST 126 H ALT 338 H Alkaline Phosphatase 131 H Total Protein 5.4 L Albumin 2.0 L 10/13/17 10/13/17 10/13/17 12:39 18:55 23:38 Sodium Potassium Chloride Carbon Dioxide Anion Gap BUN Creatinine Estimated GFR POC Glucose 203 H 176 H 138 H Random Glucose Calcium Prot Corrected Calcium Phosphorus Magnesium Total Bilirubin AST ALT Alkaline Phosphatase Total Protein Albumin 10/14/17 10/14/17 10/14/17 04:25 06:19 11:06 Sodium 147 H Potassium 4.8 Chloride 108 H Carbon Dioxide 29.5 Anion Gap 10 BUN 78 H Creatinine 1.27 Estimated GFR 54 L POC Glucose 128 H 124 H Random Glucose 112 H Calcium 7.1 L* Prot Corrected Calcium 8.2 L Phosphorus Magnesium Total Bilirubin 6.1 H AST 149 H ALT 251 H Alkaline Phosphatase 168 H Total Protein 5.1 L Albumin 1.7 L Imaging: ITS Impressions Elbow X-Ray 10/03/17 18:31 CONCLUSION: There is discontinuity of the tip of a small olecranon spur without soft tissue swelling. Cannot exclude a fracture. Recommend correlation with clinical exam for point tenderness in this area. Hip X-Ray 10/03/17 18:31 CONCLUSION: No fracture seen. Lumbar Spine X-Ray 10/03/17 18:31 CONCLUSION: 60% anterior compression fracture of L2. No retropulsed fragments seen. Cervical Spine CT 10/03/17 18:35 CONCLUSION: 1. No evidence of compression deformity, fracture, or spondylolisthesis. 2. Advanced hypertrophic degenerative changes in the facet joints, more severe on the right. Abdomen/Pelvis CT 10/03/17 18:38 CONCLUSION: 1. Bilateral pleural effusions, right greater than left. 2. Nonobstructing 4 mm stone in the right renal collecting system. 3. 3.7 cm infrarenal abdominal aortic aneurysm. 4. Small fat-containing left inguinal hernia. Chest CT 10/03/17 18:38 CONCLUSION: 1. Large right and small left pleural effusion. 2. No fracture seen. No evidence of pneumothorax. Liver Ultrasound 10/04/17 00:00 CONCLUSION: 1. No evidence of gallstones or biliary tract obstruction. 2. There is a cyst along the upper pole the right kidney measuring 3 cm. 3. Bilateral pleural effusions. Head CT 10/06/17 00:00 CONCLUSION: 1. Stable evaluation the brain. 2. No evidence of acute infarct, hemorrhage, mass or edema. . Head MRI 10/09/17 00:00 CONCLUSION: 1. No acute infarct, acute hemorrhage, midline shift or extra-axial fluid collections. 2. Mild cerebral atrophy. 3. 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 4. Minimal small vessel ischemic changes within the periventricular and subcortical white matter bilaterally. Chest X-Ray 10/11/17 00:00 CONCLUSION: No significant change. Physical Exam: Physical Examination GENERAL: On the vent, not in respiratory distress. SKIN: Cool and dry. Has some purpura in BUE. Has cyanosis both feet, cold. HEENT: Head atraumatic. Pale sclera. His reactive to light. NECK: Trachea midline. Supple and not tender, no meningeal sign. RIJ central line looks ok CARDIOVASCULAR: Regular rate and rhythm. No murmurs, rubs or gallops heard RESPIRATORY: Coarse breath sounds. Decreased breath sounds at the bases. No rales, wheezing or rhonchi ABDOMEN: Soft, no reaction to palpation. Bowel sounds present and normoactive. No organomegaly. EXTREMITIES: Edema at all extremities. Both hands are warm. Feet are cold with cyanosis both soles. NEUROLOGICAL: Eyes open, not following commands. No Babinski, no ankle clonus PSYCHIATRIC: Unable to assess LINE: No evidence of infection : Has alvarez in place, urine looks clear. Genitalia edematous Assessment and Plan - Plan Impression Fevers started 10/10 - has been on Vancomycin and Zosyn since 10/03 - sputum with NF - has line placed 10/06 - Bilirubin worsening - CXR with effusions; transudative - has alvarez. Urine culture has many yeast. - ?new infection - ?drug fever Respiratory failure, CHF CT Elevated LFT, ?due to shock, ?hepatic congestion Renal insufficiency, due to shock Julia UTI. Recommendation Follow repeat BC - line and peripheral Continue Levaquin empiric Continue micafungin. Folow culture. follow LFT, may need repeat US if bilirubin starts increasing again; it is decreasing Follow temps Monitor progress Discussed with RN.
[2017-10-15] MEDS: Insulin NovoLOG Aspart Correctional Sugar Inj SQ SCH ×4 (01:07→18:34)
[2017-10-15] MEDS: Dextrose 5% in Water Inj 1,000 ML IV.CONT SCH (01:33)
[2017-10-15] MEDS: fentaNYL 10 mcg/mL Premix Drip 2,500 MCG/250 ML BAG IV.SIG PRN ×2 (01:34→18:33)
[2017-10-15 05:20] LABS: Hematocrit 41.5 % (39.0-51.0); Hemoglobin 13.3 gm/dL (13.0-17.0); Mean Corpuscular HGB Conc 32.1 % (32.0-36.0); Mean Corpuscular Hemoglobin 30.9 pg (27.0-34.0); Mean Corpuscular Volume 96.4 fL (80.0-100.0); Mean Platelet Volume 11.7 fL (7.0-11.0); Platelet Count 38 th/mm3 (150-450); Red Cell Distribution Width 17.6 % (11.6-17.2); White Blood Count 13.7 th/mm3 (4.0-11.0)
[2017-10-15 05:35] LABS: Albumin 1.5 g/dL (3.4-5.0); Calcium 6.9 mg/dL (8.5-10.1); Carbon Dioxide 31.1 meq/L (21.0-32.0); Potassium 4.5 meq/L (3.5-5.1); Total Protein 4.5 g/dL (6.4-8.2)
--- NOTE | 2017-10-15 08:24 | P.PNCC ---
Subjective Subjective Remarks/Hospital Course: Patient is an elderly male with unknown past medical history who was found on the floor of his apartment with door open. Apparently neighbors checked on him and found him unresponsive on the floor. Patient was brought to the emergency department and underwent extensive workup to rule out trauma. CT of the head showed moderate to severe atrophy, CT of the chest showed moderate right-sided and small left effusion. 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 X-ray of his right elbow showed a possible olecranon spur discontinuity. Multiple lab abnormalities white count was 12.8 with 87% neutrophils platelet count 60 INR was 2.3. UA showed evidence of UTI, patient received a dose of cefepime for severe sepsis. Also his troponin was elevated at 6.8, lactic acid was 8.3 BUN 67 creatinine 2.71. Patient received 2 L normal saline boluses. Dr. Jaimes from cardiology was contacted for an STEMI. Due to poor mentation and multiorgan failure patient was deemed not a candidate for cardiac catheterization. Cannot use aspirin or heparin due to platelet count of 60,000 INR of 2.3. Other abnormal labs included transaminitis and elevated CPK. I evaluated the patient in the emergency department. He is severely encephalopathic appears critical, tachypneic but protecting airway. He is not able to say his name or mouth any words. He continues to move his head side to side but not communicative. I have added additional 2 L normal saline bolus, give 2 A of bicarb. Check ABG. Broad-spectrum antibiotics with vancomycin 1 dose and renally dosed Zosyn. Patient is very critically ill and has multiorgan failure, overall prognosis appears very poor. 10/04: This morning patient is not on any pressors. He is awake, agitated at times requiring restraints. He is saying incomprehensible words. T-max of 99.1. Urine output is minimal. 10/05: No events over the night. T-max of 98.4. Patient's mental status remains unchanged. Lethargic but easily arousable, not following any commands, saying incomprehensible words. Urine output of 525 mL's over the last 24 hours. Patient identified as Pablo Slater, 82-year-old gentleman. Still no family contact yet. 10/06: Over the night, patient developed worsening hypoxia with periods of apnea therefore he was intubated and now he is mechanically ventilated. This morning he is on no sedation, thrashing in bed, not following any commands. T-max of 99.9. Urine output is low, 200 mL's over the last 24 hours. Low blood pressure over the night noted, 1000 mL's of LR bolus given map remains borderline low normal. Morning chest x-ray reviewed, bibasilar infiltrates, right greater than left. ET tube is in good position. ROS -unobtainable due to patient's mental status SUBJECTIVE: 10/07: Low-grade temperatures overnight. Remains on norepinephrine drip at 2 mcg /min. Arousable on fentanyl drip at 100 mg an hour. No bowel movement. 10/08 Patient remains intubated and sedated with Fentanyl infusion. Afebrile. On Levophed 1 tu. Renal function is improving with Cr: 1.51 from 1.71. 10/09 No events overnight intubated and sedated with Fentanyl infusion on Levophed 2 mics. T:99.7. 10/10 Patient remains intubated and sedated with Fentanyl drip. s/p right sided thoracentesis yesterday with removal 1.5L (transudative fluid) On Levophed 2 mics. 10/11 : Remains sedated, orally intubated on mechanical ventilation. 10/12 Patient remains intubated and on Fentanyl infusion for sedation. T:101.5 last night. 10/13 Patient remains intubated and sedated, T 100.8 10/14 Patient remains intubated and sedated . Afebrile. 10/15 Patient is sedated with Fentanyl and intubated. Afebrile. Objective Vital Signs / I&O: Vital Signs 10/14/17 08:22 10/14/17 09:00 10/14/17 10:00 Temperature 98.4 F 98.6 F 98.6 F Pulse Rate 93 H 87 86 Respiratory Rate 15 20 16 Blood Pressure 103/62 97/59 L 93/58 L Pulse Oximetry 96 94 L 94 L 10/14/17 11:00 10/14/17 12:00 10/14/17 12:05 Temperature 98.8 F 98.8 F Pulse Rate 91 H 87 Respiratory Rate 16 26 H 15 Blood Pressure 97/61 L 97/57 L Pulse Oximetry 96 93 L 93 L 10/14/17 13:00 10/14/17 14:00 10/14/17 14:47 Temperature 99.0 F 99.0 F Pulse Rate 95 H 100 H Respiratory Rate 21 18 18 Blood Pressure 98/67 L 100/63 Pulse Oximetry 96 96 96 10/14/17 15:00 10/14/17 16:00 10/14/17 17:00 Temperature 99.3 F 99.3 F 98.1 F Pulse Rate 100 H 96 H 103 H Respiratory Rate 19 22 15 Blood Pressure 105/64 95/64 L 116/75 Pulse Oximetry 94 L 90 L 92 L 10/14/17 18:00 10/14/17 19:00 10/14/17 20:00 Temperature 98.2 F 98.2 F 98.4 F Pulse Rate 87 88 83 Respiratory Rate 15 16 15 Blood Pressure 103/64 103/67 97/62 L Pulse Oximetry 92 L 93 L 92 L 10/14/17 20:11 10/14/17 21:00 10/14/17 22:00 Temperature 98.4 F 98.1 F Pulse Rate 86 95 H Respiratory Rate 15 15 11 L Blood Pressure 102/65 112/70 Pulse Oximetry 95 92 L 92 L 10/14/17 23:00 10/15/17 00:00 10/15/17 01:00 Temperature 98.1 F 98.2 F Pulse Rate 93 H 91 H 92 H Respiratory Rate 13 15 15 Blood Pressure 109/71 105/71 101/64 Pulse Oximetry 92 L 92 L 95 10/15/17 01:52 10/15/17 02:00 10/15/17 03:00 Temperature Pulse Rate 85 90 Respiratory Rate 15 15 15 Blood Pressure 99/58 L 101/62 Pulse Oximetry 94 L 93 L 93 L 10/15/17 03:56 10/15/17 04:00 10/15/17 06:00 Temperature 99 F Pulse Rate 87 89 Respiratory Rate 15 16 Blood Pressure 100/60 Pulse Oximetry 93 L 93 L Intake & Output 10/14/17 10/15/17 10/15/17 18:59 06:59 18:59 Intake Total 1180 / 1180 2244 / 2244 Output Total 900 / 900 950 / 950 Balance 280 / 280 1294 / 1294 Weight 74.9 kg Intake: IV 200 / 200 1070 / 1070 D5W Inj 1,000 ML @ 50 mls/hr IV 1000 / 1000 .CONT .Q20H [facility] Rx#:[id number] Levaquin 500 mg Premix Inj 500 100 / 100 mg In 100 ml @ 100 mls/hr IV. SIG Q48H [facility] Rx#:[id number] Mycamine Inj 100 MG In NS Inj 100 / 100 100 ML @ 100 mls/hr IV.SIG Q24H [facility] Rx#:[id number] fentaNYL 10 mcg/mL Premix Drip 70 / 70 2,500 mcg In 250 ml @ 50 MCG/HR 5 mls/hr IV.SIG TITRATE PRN Rx #:[id number] Tube Feeding 480 / 480 674 / 674 Water Bolus Amount 500 / 500 500 / 500 Output: Urine Amount (Catheter) 900 / 900 950 / 950 Indwelling Urethral Catheter 900 / 900 950 / 950 Other: Date of Last Bowel Movement 10/14/17 10/15/17 # Incontinent Bowel Movements 1 1 Result Diagrams: 10/15/17 08:43 10/15/17 04:41 Other Results: Laboratory Results - last 12 hr 10/14/17 10/14/17 10/15/17 20:42 23:42 04:41 WBC 13.7 H RBC 4.30 L Hgb 13.3 Hct 41.5 MCV 96.4 MCH 30.9 MCHC 32.1 RDW 17.6 H Plt Count 38 L D MPV 11.7 H Prelim Diff (Auto) Manual diff required Differential Comment . Sodium Potassium Chloride Carbon Dioxide Anion Gap BUN Creatinine Estimated GFR POC Glucose 156 H 139 H Random Glucose Calcium Prot Corrected Calcium Total Bilirubin AST ALT Alkaline Phosphatase Total Protein Albumin 10/15/17 04:41 WBC RBC Hgb Hct MCV MCH MCHC RDW Plt Count MPV Prelim Diff (Auto) Differential Comment Sodium 147 H Potassium 4.5 Chloride 109 H Carbon Dioxide 31.1 Anion Gap 7 BUN 68 H Creatinine 0.94 Estimated GFR 77 L POC Glucose Random Glucose 138 H Calcium 6.9 L* Prot Corrected Calcium 8.3 L Total Bilirubin 5.2 H AST 125 H ALT 199 H Alkaline Phosphatase 183 H Total Protein 4.5 L D Albumin 1.5 L Imaging: Elbow X-Ray 10/03/17 18:31 CONCLUSION: There is discontinuity of the tip of a small olecranon spur without soft tissue swelling. Cannot exclude a fracture. Recommend correlation with clinical exam for point tenderness in this area. Hip X-Ray 10/03/17 18:31 CONCLUSION: No fracture seen. Lumbar Spine X-Ray 10/03/17 18:31 CONCLUSION: 60% anterior compression fracture of L2. No retropulsed fragments seen. Cervical Spine CT 10/03/17 18:35 CONCLUSION: 1. No evidence of compression deformity, fracture, or spondylolisthesis. 2. Advanced hypertrophic degenerative changes in the facet joints, more severe on the right. Abdomen/Pelvis CT 10/03/17 18:38 CONCLUSION: 1. Bilateral pleural effusions, right greater than left. 2. Nonobstructing 4 mm stone in the right renal collecting system. 3. 3.7 cm infrarenal abdominal aortic aneurysm. 4. Small fat-containing left inguinal hernia. Chest CT 10/03/17 18:38 CONCLUSION: 1. Large right and small left pleural effusion. 2. No fracture seen. No evidence of pneumothorax. Liver Ultrasound 10/04/17 00:00 CONCLUSION: 1. No evidence of gallstones or biliary tract obstruction. 2. There is a cyst along the upper pole the right kidney measuring 3 cm. 3. Bilateral pleural effusions. Head CT 10/06/17 00:00 CONCLUSION: 1. Stable evaluation the brain. 2. No evidence of acute infarct, hemorrhage, mass or edema. . Head MRI 10/09/17 00:00 CONCLUSION: 1. No acute infarct, acute hemorrhage, midline shift or extra-axial fluid collections. 2. Mild cerebral atrophy. 3. 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 4. Minimal small vessel ischemic changes within the periventricular and subcortical white matter bilaterally. Chest X-Ray 10/11/17 00:00 CONCLUSION: No significant change. Objective Remarks: GENERAL: Elderly gentleman, poorly nourished, very deconditioned, ill-appearing , intubated HEENT: Pupils are equal and reactive. Sclerae anicteric. Neck supple without rigidity. Orally intubated. Neck veins are nondistended. No carotid bruit. CHEST: Scattered coarse breath sounds bilateral, decreased breath sounds at bases but overall improved air entry. No wheezes. CARDIOVASCULAR: Regular heart sounds, without murmurs. ABDOMEN: Soft, nontender, nondistended. Bowel sounds are decreased. No hepatomegaly or splenomegaly appreciated. MUSCULOSKELETAL: Remains tepid. 2+ peripheral pitting edema. Pulses are present. Dusky discoloration of the plantar surface of the toes. NEUROLOGICAL: Patient is intubated, lethargic, arousable by opening eyes and withdrawing to bilateral upper and lower extremities but he does not follow any commands. Grimaces to pain. Pupils remain equal and reactive. Assessment and Plan - Assessment and Plan Plan: 1. VDRF 2. Acute encephalopathy, likely toxic metabolic -probably some degree of dementia at base, no improvement so far 3. s/p Acute AK -followed by cardiology 4. Sepsis 5. Lactic acidosis- resolved 6. Bibasilar pneumonia 7. Transaminitis -liver enzymes are slowly trending down 8. JAVON -improving 9. Hypernatremia -slowly improving 10. Thrombocytopenia, anemia 11. L2 compression deformity/acuity unknown Plan Neuro: On Fentanyl infusion for sedation. Daily sedation vacation. 10/06 CT brain: No evidence of acute infarct, hemorrhage, mass or edema. neuro is following- Dr. Benites MRI brain: No acute infarct, acute hemorrhage, midline shift or extra- axial fluid collections. Mild cerebral atrophy. 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 Minimal small vessel ischemic changes within the periventricular and subcortical white matter bilaterally. Pulm: Continue with vent support keep sats >92% Bronchodilators, ICU vent bundle. s/p right sided thoracentesis with removal 1.5L ( Transudative fluid) SBT daily as ruth CXR today showed complete opacification of left hemithorax. Bronch with BAL today showed thick mucous plugs obstructing office left main stem bronchus and LLL suctioned to clear BAL performed LLL. CXR post bronch showed much improved aeration of left lung. CV: Monitor HR and BP kep MAP>65mmHg, Lactic acid trending down 2.3 10/07 from 5.9 No aspirin or heparin due to worsening thrombocytopenia and coagulopathy No statin due to elevated liver enzymes : Monitor renal function, I/O's, electrolytes replacement as needed. On Free water 250ml Q6, d/c IVF ID: Continue Levaquin, Micafungin per ID, monitor for signs of infections ( Fever, WBC) BC, urine cx 10/03: No growth, Followup on fluid, sputum cx 10/09: NGTD Panculture 10/12( Blood, sputum, urine) ID is following 10/12 Urine cx: Yeast GI: On Prevacid 30mg daily. Monitor LFT's, Hepatitis profile negative Liver ultrasound reviewed -no gallstones or biliary tract obstruction. On Glucerna 1.5 @ 50ml/hr GI is following re hyperbilirubinemia/elevated LFT's Heme: Monitor CBC, Coags, s/p Transfuse 1 packed leuko-reduced platelets, and 1 cryo due to worsening thrombocytopenia on 10/07 s/p Transfuse 1u FFP and 2u PLT 10/09 for thoracentesis Endo: SSI for glycemic control DVT prophylaxis with SCDs and GI prophylaxis with lansoprazole Palliative care is following Lines: Right IJ CVP 10/06 Condition critical Prognosis poor. Time spent on critical care excluding procedures 30 minutes
[2017-10-15] MEDS: Senna/Docusate Sodium 8.6/50 MG Tablet PO SCH ×2 (08:44→21:16)
[2017-10-15] MEDS: Hypromellose 0.3% Opth Gel 10 GM Bottle EACH EYE SCH ×2 (08:48→21:15)
--- NOTE | 2017-10-15 09:04 | XR ---
EXAM DATE: 10/15/2017 8:54 AM EDT AGE/SEX: 82 years / Male INDICATIONS: Shortness of breath. CLINICAL DATA: This is the patient's initial encounter. Patient reports that signs and symptoms have been present for 1 day and indicates a pain score of Nonresponsive. MEDICAL/SURGICAL HISTORY: Non-responsive. Non-responsive. COMPARISON: [facility] – [place], CHEST 1V SINGLE AP, 10/11/2017. . FINDINGS: There is complete opacification of the left hemithorax now seen. The patient is rotated to the left. Endotracheal tube tip at the inferior margin of the clavicles. Right jugular line tip overlies the ex pected location of the SVC. EKG leads are present. There is patchy right lower lobe airspace disease. CONCLUSION: There is complete opacification of the left hemithorax which is a new finding from the previous study . Electronically signed by: Kristopher Fernandez MD 10/15/2017 9:03 AM EDT
[2017-10-15 09:09] LABS: Baso # (Auto) 0.1 th/mm3 (0.0-0.2); Hematocrit 42.9 % (39.0-51.0); Hemoglobin 13.7 gm/dL (13.0-17.0); Lymph # (Auto) 0.3 th/mm3 (1.0-4.8); Lymph % (Auto) 2.2 % (9.0-44.0); Mean Corpuscular HGB Conc 32.1 % (32.0-36.0); Mean Corpuscular Hemoglobin 30.6 pg (27.0-34.0); Mean Corpuscular Volume 95.6 fL (80.0-100.0); Mean Platelet Volume 11.5 fL (7.0-11.0); Mono # (Auto) 0.4 th/mm3 (0.0-0.9); Neut # (Auto) 13.1 th/mm3 (1.8-7.7); Neut % (Auto) 93.8 % (16.0-70.0); Platelet Count 40 th/mm3 (150-450); Red Blood Count 4.49 mil/mm3 (4.50-5.90); Red Cell Distribution Width 17.6 % (11.6-17.2)
[2017-10-15 10:13] LABS: Platelet Morphology Normal (Normal)
--- NOTE | 2017-10-15 10:58 | XR ---
EXAM DATE: 10/15/2017 10:51 AM EDT AGE/SEX: 82 years / Male INDICATIONS: Post bronchoscopy CLINICAL DATA: This is the patient's initial encounter. Patient reports that signs and symptoms have been present for 1 day and indicates a pain score of Nonresponsive. MEDICAL/SURGICAL HISTORY: Non-responsive. Non-responsive. COMPARISON: [facility] – [place], CHEST 1V SINGLE AP, 10/15/2017. . FINDINGS: The tracheal tube tip at the inferior margin the clavicles. Enteric tube courses beneath the diaphrag m, side port overlies the expected location of the upper stomach. There is improved aeration of the l eft lung. A left effusion is noted and consolidation is seen greatest in the left lower lobe. Right e ffusion suspected with lower lobe airspace disease. CONCLUSION: Improved aeration of the left lung is seen status post bronchoscopy. Electronically signed by: Kristopher Fernandez MD 10/15/2017 10:57 AM EDT
[2017-10-15 11:37] LABS: Lymphocytes 2 % (9-44); Monocytes 3 % (0-8); Plasma Cells 1 % (0-0)
--- NOTE | 2017-10-15 12:35 | P.DIET ---
Nutritional Evaluation Type of nutrition evaluation: follow-up Nutrition consult regarding: Tube Feeding Objective - Diagnosis AMS, JAVON, Dehydration - Objective Alpha body weight: 73 kg (Admit wt: 67.6kg) % IBW: 93 Energy Needs - Lower Range (kCal/kg): 28 Energy Needs - Upper Range (kCal/kg): 33 Lower Limit kCal/kg (kCals): 1,893 Upper Limit kCal/kg (kCals): 2,231 Lower Limit Protein Factor (Grams per Kg): 1.2 Upper Limit Protein Factor (Grams per Kg): 1.4 Lower Protein Needs (Protein): 81 Upper Protein Needs (Protein): 95 Dietitian Reviewed in Medical Record: Curent medications, Intake & Output, Labs , Tube feeding Diet Order: TF only Objective Comments: Pt's nutritional needs based on admit wt PMH: AAA, HTN Meds include: Fentanyl Labs include: Na 147, Glu 138, POC Glucose 156, 139, 144, elevated LFT's, Total Bili 5.2 (+1)BM Assessment Assessment: Pt at nutritional risk r/t dx and need for a TF for nutritional support. Pt remains intubated and sedated on fentanyl. Nutritional needs as assessed above. TF Glucerna 1.5 is currently running at 50 ml/hr and being tolerated well. To meet pt's nutritional needs, a goal rate of 60 ml/hr is necessary to provide 2160kcals, 119gms protein and 1093mls free water. Will monitor TF tolerance, clinical course. Recommendations: TF Glucerna 1.5 with goal rate 60 ml/hr to meet pt's nutritional needs. Dietitian to Monitor: Lab values, Intake & Output, Tube feeding tolerance, Weight change, Medical course
--- NOTE | 2017-10-15 13:30 | P.PNGI ---
Subjective Interval history: Patient remains in the intensive care setting monitored on ventilator management and sedation Sinus rhythm heart rate 94, patient does have some minimal movement noted but no obvious bleeding. Tube feeds Glucerna per oral gastric tube 50 cc an hour and tolerating without acute nausea or vomiting <Hui Hebert M - Last Filed: 10/15/17 13:22> Physical Exam Vital signs: Vital Signs 10/14/17 14:00 10/14/17 14:47 10/14/17 15:00 Temperature 99.0 F 99.3 F Pulse Rate 100 H 100 H Respiratory Rate 18 18 19 Blood Pressure 100/63 105/64 Pulse Oximetry 96 96 94 L 10/14/17 16:00 10/14/17 17:00 10/14/17 18:00 Temperature 99.3 F 98.1 F 98.2 F Pulse Rate 96 H 103 H 87 Respiratory Rate 22 15 15 Blood Pressure 95/64 L 116/75 103/64 Pulse Oximetry 90 L 92 L 92 L 10/14/17 19:00 10/14/17 20:00 10/14/17 20:11 Temperature 98.2 F 98.4 F Pulse Rate 88 83 Respiratory Rate 16 15 15 Blood Pressure 103/67 97/62 L Pulse Oximetry 93 L 92 L 95 10/14/17 21:00 10/14/17 22:00 10/14/17 23:00 Temperature 98.4 F 98.1 F 98.1 F Pulse Rate 86 95 H 93 H Respiratory Rate 15 11 L 13 Blood Pressure 102/65 112/70 109/71 Pulse Oximetry 92 L 92 L 92 L 10/15/17 00:00 10/15/17 01:00 10/15/17 01:52 Temperature 98.2 F Pulse Rate 91 H 92 H Respiratory Rate 15 15 15 Blood Pressure 105/71 101/64 Pulse Oximetry 92 L 95 94 L 10/15/17 02:00 10/15/17 03:00 10/15/17 03:56 Temperature Pulse Rate 85 90 Respiratory Rate 15 15 15 Blood Pressure 99/58 L 101/62 Pulse Oximetry 93 L 93 L 93 L 10/15/17 04:00 10/15/17 06:00 10/15/17 08:54 Temperature 99 F Pulse Rate 87 89 Respiratory Rate 16 15 Blood Pressure 100/60 Pulse Oximetry 93 L 10/15/17 10:26 10/15/17 10:38 10/15/17 10:39 Temperature Pulse Rate 100 H 101 H Respiratory Rate 18 24 Blood Pressure 100/64 105/68 Pulse Oximetry 99 96 96 10/15/17 10:40 10/15/17 10:41 10/15/17 10:42 Temperature Pulse Rate 101 H 101 H 102 H Respiratory Rate 21 19 19 Blood Pressure 109/68 108/68 107/67 Pulse Oximetry 10/15/17 10:43 10/15/17 10:44 10/15/17 10:45 Temperature Pulse Rate 101 H 100 H 99 H Respiratory Rate 20 18 19 Blood Pressure 110/69 105/66 103/65 Pulse Oximetry 10/15/17 10:46 10/15/17 10:47 10/15/17 10:48 Temperature Pulse Rate 98 H 97 H 97 H Respiratory Rate 18 20 19 Blood Pressure 101/64 101/63 103/63 Pulse Oximetry 10/15/17 10:49 10/15/17 10:50 10/15/17 10:51 Temperature Pulse Rate 97 H 97 H 98 H Respiratory Rate 19 19 21 Blood Pressure 106/65 105/64 108/68 Pulse Oximetry 10/15/17 10:52 10/15/17 10:53 10/15/17 10:54 Temperature Pulse Rate 98 H 98 H 97 H Respiratory Rate 18 18 18 Blood Pressure 107/66 104/67 103/65 Pulse Oximetry 10/15/17 10:55 10/15/17 10:56 10/15/17 10:57 Temperature Pulse Rate 97 H 96 H 97 H Respiratory Rate 20 18 21 Blood Pressure 103/64 102/64 102/66 Pulse Oximetry 10/15/17 10:58 10/15/17 10:59 10/15/17 11:00 Temperature Pulse Rate 98 H 97 H 97 H Respiratory Rate 18 17 17 Blood Pressure 104/64 105/63 102/63 Pulse Oximetry 10/15/17 11:01 10/15/17 11:02 10/15/17 12:39 Temperature Pulse Rate 96 H 96 H Respiratory Rate 17 17 23 Blood Pressure 101/60 100/61 Pulse Oximetry 97 10/15/17 12:41 Temperature Pulse Rate 104 H Respiratory Rate 16 Blood Pressure Pulse Oximetry Intake & Output 10/14/17 10/15/17 10/15/17 18:59 06:59 18:59 Intake Total 1180 / 1180 2244 / 2244 Output Total 900 / 900 950 / 950 Balance 280 / 280 1294 / 1294 Weight 74.9 kg Intake: IV 200 / 200 1070 / 1070 D5W Inj 1,000 ML @ 50 mls/hr IV 1000 / 1000 .CONT .Q20H [facility] Rx#:[id number] Levaquin 500 mg Premix Inj 500 100 / 100 mg In 100 ml @ 100 mls/hr IV. SIG Q48H [facility] Rx#:[id number] Mycamine Inj 100 MG In NS Inj 100 / 100 100 ML @ 100 mls/hr IV.SIG Q24H [facility] Rx#:[id number] fentaNYL 10 mcg/mL Premix Drip 70 / 70 2,500 mcg In 250 ml @ 50 MCG/HR 5 mls/hr IV.SIG TITRATE PRN Rx #:[id number] Tube Feeding 480 / 480 674 / 674 Water Bolus Amount 500 / 500 500 / 500 Output: Urine Amount (Catheter) 900 / 900 950 / 950 Indwelling Urethral Catheter 900 / 900 950 / 950 Other: Date of Last Bowel Movement 10/14/17 10/15/17 10/14/17 # Incontinent Bowel Movements 1 1 - Constitutional mild distress, thin (Ventilator management), cachectic, chronically ill appearing - Routine Cardiovascular Exam Present: S1, S2 - Routine Abdominal Exam Present: soft (Round, soft bowel sounds), drain (Orogastric tube) - Routine Extremities Exam Present: cyanosis - Urinary Catheter Management Indwelling Urethral Catheter Cath placed during this visit: yes Reason for continuing: Hourly intake/output Insertion date: 10/03/17 Insertion time: 18:00 <Hui Hebert - Last Filed: 10/15/17 13:22> Vital signs: Vital Signs 10/15/17 00:00 10/15/17 01:00 10/15/17 01:52 Temperature 98.2 F Pulse Rate 91 H 92 H Respiratory Rate 15 15 15 Blood Pressure 105/71 101/64 Pulse Oximetry 92 L 95 94 L 10/15/17 02:00 10/15/17 03:00 10/15/17 03:56 Temperature Pulse Rate 85 90 Respiratory Rate 15 15 15 Blood Pressure 99/58 L 101/62 Pulse Oximetry 93 L 93 L 93 L 10/15/17 04:00 10/15/17 06:00 10/15/17 08:54 Temperature 99 F Pulse Rate 87 89 Respiratory Rate 16 15 Blood Pressure 100/60 Pulse Oximetry 93 L 10/15/17 10:26 10/15/17 10:38 10/15/17 10:39 Temperature Pulse Rate 100 H 101 H Respiratory Rate 18 24 Blood Pressure 100/64 105/68 Pulse Oximetry 99 96 96 10/15/17 10:40 10/15/17 10:41 10/15/17 10:42 Temperature Pulse Rate 101 H 101 H 102 H Respiratory Rate 21 19 19 Blood Pressure 109/68 108/68 107/67 Pulse Oximetry 10/15/17 10:43 10/15/17 10:44 10/15/17 10:45 Temperature Pulse Rate 101 H 100 H 99 H Respiratory Rate 20 18 19 Blood Pressure 110/69 105/66 103/65 Pulse Oximetry 10/15/17 10:46 10/15/17 10:47 10/15/17 10:48 Temperature Pulse Rate 98 H 97 H 97 H Respiratory Rate 18 20 19 Blood Pressure 101/64 101/63 103/63 Pulse Oximetry 10/15/17 10:49 10/15/17 10:50 10/15/17 10:51 Temperature Pulse Rate 97 H 97 H 98 H Respiratory Rate 19 19 21 Blood Pressure 106/65 105/64 108/68 Pulse Oximetry 10/15/17 10:52 10/15/17 10:53 10/15/17 10:54 Temperature Pulse Rate 98 H 98 H 97 H Respiratory Rate 18 18 18 Blood Pressure 107/66 104/67 103/65 Pulse Oximetry 10/15/17 10:55 10/15/17 10:56 10/15/17 10:57 Temperature Pulse Rate 97 H 96 H 97 H Respiratory Rate 20 18 21 Blood Pressure 103/64 102/64 102/66 Pulse Oximetry 10/15/17 10:58 10/15/17 10:59 10/15/17 11:00 Temperature Pulse Rate 98 H 97 H 97 H Respiratory Rate 18 17 17 Blood Pressure 104/64 105/63 102/63 Pulse Oximetry 10/15/17 11:01 10/15/17 11:02 10/15/17 12:00 Temperature Pulse Rate 96 H 96 H 91 H Respiratory Rate 17 17 Blood Pressure 101/60 100/61 Pulse Oximetry 10/15/17 12:39 09/03/18 12:41 10/15/17 13:38 Temperature 98.8 F Pulse Rate 104 H 91 H Respiratory Rate 23 16 16 Blood Pressure 103/61 Pulse Oximetry 97 97 10/15/17 13:39 10/15/17 13:40 10/15/17 13:41 Temperature Pulse Rate 92 H 95 H 98 H Respiratory Rate 23 Blood Pressure 103/62 112/74 137/72 Pulse Oximetry 97 10/15/17 13:42 10/15/17 13:43 10/15/17 13:44 Temperature Pulse Rate 107 H 105 H 104 H Respiratory Rate 16 15 Blood Pressure 112/70 111/74 108/69 Pulse Oximetry 97 97 97 10/15/17 13:45 10/15/17 13:46 10/15/17 13:47 Temperature Pulse Rate 101 H 100 H 97 H Respiratory Rate 15 15 15 Blood Pressure 107/68 107/68 107/65 Pulse Oximetry 97 97 97 10/15/17 13:48 10/15/17 13:49 10/15/17 13:50 Temperature Pulse Rate 96 H 94 H 92 H Respiratory Rate 15 15 16 Blood Pressure 105/63 103/63 103/63 Pulse Oximetry 97 97 98 10/15/17 13:51 10/15/17 13:52 10/15/17 13:53 Temperature Pulse Rate 92 H 91 H 90 Respiratory Rate 16 16 16 Blood Pressure 102/61 102/59 L 101/60 Pulse Oximetry 97 97 98 10/15/17 13:54 10/15/17 13:55 10/15/17 13:56 Temperature Pulse Rate 92 H 93 H 93 H Respiratory Rate 16 22 15 Blood Pressure 104/64 106/62 105/63 Pulse Oximetry 97 97 97 10/15/17 13:57 10/15/17 13:58 10/15/17 13:59 Temperature Pulse Rate 93 H 91 H 91 H Respiratory Rate 15 16 16 Blood Pressure 102/63 100/61 102/62 Pulse Oximetry 97 97 97 10/15/17 14:00 10/15/17 14:01 10/15/17 14:02 Temperature Pulse Rate 91 H 91 H 91 H Respiratory Rate 16 16 16 Blood Pressure 102/60 103/59 L 100/60 Pulse Oximetry 97 97 97 10/15/17 16:00 10/15/17 16:26 10/15/17 16:27 Temperature Pulse Rate 98 H 90 90 Respiratory Rate 16 15 Blood Pressure 98/58 L 99/58 L Pulse Oximetry 97 97 10/15/17 16:28 10/15/17 16:29 10/15/17 16:30 Temperature Pulse Rate 91 H 96 H 100 H Respiratory Rate 20 27 H 30 H Blood Pressure 100/62 107/69 115/79 Pulse Oximetry 97 95 93 L 10/15/17 16:31 10/15/17 16:32 10/15/17 16:33 Temperature Pulse Rate 103 H 102 H 101 H Respiratory Rate 15 15 15 Blood Pressure 108/66 109/75 107/73 Pulse Oximetry 97 97 97 10/15/17 16:34 10/15/17 16:35 10/15/17 16:36 Temperature Pulse Rate 102 H 101 H 100 H Respiratory Rate 15 16 17 Blood Pressure 109/71 109/69 108/70 Pulse Oximetry 97 97 97 10/15/17 16:37 10/15/17 16:39 10/15/17 16:40 Temperature Pulse Rate 102 H 106 H 106 H Respiratory Rate 30 H 23 16 Blood Pressure 111/73 130/85 110/69 Pulse Oximetry 98 97 97 10/15/17 16:41 10/15/17 16:42 10/15/17 16:43 Temperature Pulse Rate 104 H 104 H 104 H Respiratory Rate 17 18 25 H Blood Pressure 111/71 112/72 115/76 Pulse Oximetry 97 97 97 10/15/17 16:44 10/15/17 16:45 10/15/17 16:46 Temperature Pulse Rate 106 H 105 H 104 H Respiratory Rate 18 15 25 H Blood Pressure 119/73 117/69 117/74 Pulse Oximetry 96 96 96 10/15/17 16:47 10/15/17 16:48 10/15/17 16:49 Temperature Pulse Rate 105 H 104 H 103 H Respiratory Rate 17 16 18 Blood Pressure 117/74 114/72 116/71 Pulse Oximetry 97 97 97 10/15/17 16:50 10/15/17 17:00 10/15/17 17:57 Temperature Pulse Rate 103 H 104 H 95 H Respiratory Rate 23 16 Blood Pressure 112/69 Pulse Oximetry 96 97 10/15/17 18:00 10/15/17 19:40 10/15/17 20:00 Temperature 99.6 F 99.8 F H Pulse Rate 94 H 101 H Respiratory Rate 15 15 19 Blood Pressure 120/65 Pulse Oximetry 96 98 99 Intake & Output 10/15/17 10/15/17 10/16/17 06:59 18:59 06:59 Intake Total 2244 / 2244 1652 / 1652 Output Total 950 / 950 825 / 825 Balance 1294 / 1294 827 / 827 Weight 74.9 kg Intake: IV 1070 / 1070 650 / 650 D5W Inj 1,000 ML @ 50 mls/hr IV 1000 / 1000 300 / 300 .CONT .Q20H [facility] Rx#:[id number] Mycamine Inj 100 MG In NS Inj 100 / 100 100 ML @ 100 mls/hr IV.SIG Q24H [facility] Rx#:[id number] fentaNYL 10 mcg/mL Premix Drip 70 / 70 250 / 250 2,500 mcg In 250 ml @ 50 MCG/HR 5 mls/hr IV.SIG TITRATE PRN Rx #:[id number] Tube Feeding 674 / 674 502 / 502 Water Bolus Amount 500 / 500 500 / 500 Output: Urine Amount (Catheter) 950 / 950 825 / 825 Indwelling Urethral Catheter 950 / 950 825 / 825 Other: Date of Last Bowel Movement 10/15/17 10/14/17 10/14/17 # Incontinent Bowel Movements 1 1 - Urinary Catheter Management Indwelling Urethral Catheter Cath placed during this visit: no <Michael Berg A - Last Filed: 10/15/17 23:04> Results - Labs CBC & Chem 7: 10/15/17 08:43 10/15/17 04:41 Laboratory Results - last 24 hr 10/14/17 10/14/17 10/14/17 17:49 20:42 23:42 WBC RBC Hgb Hct MCV MCH MCHC RDW Plt Count MPV Prelim Diff (Auto) Neut % (Auto) Lymph % (Auto) [place] % (Auto) Eos % (Auto) Baso % (Auto) Neut # (Auto) Lymph # (Auto) [place] # (Auto) Eos # (Auto) Baso # (Auto) WBC Differential Diff Scan Seg Neuts % (Manual) Band Neuts % (Manual) Lymphocytes % (Manual) Monocytes % (Manual) Plasma Cell % (Manual) Abs Neuts (Manual) Differential Comment Platelet Estimate Platelet Morphology Sodium Potassium Chloride Carbon Dioxide Anion Gap BUN Creatinine Estimated GFR POC Glucose 111 H 156 H 139 H Random Glucose Calcium Prot Corrected Calcium Total Bilirubin AST ALT Alkaline Phosphatase Total Protein Albumin 10/15/17 10/15/17 10/15/17 04:41 04:41 08:43 WBC 13.7 H 14.0 H RBC 4.30 L 4.49 L Hgb 13.3 13.7 Hct 41.5 42.9 MCV 96.4 95.6 MCH 30.9 30.6 MCHC 32.1 32.1 RDW 17.6 H 17.6 H Plt Count 38 L D 40 L MPV 11.7 H 11.5 H Prelim Diff (Auto) Manual diff required Slide review pending Neut % (Auto) 93.8 H Lymph % (Auto) 2.2 L [place] % (Auto) 3.0 Eos % (Auto) 0.0 Baso % (Auto) 1.0 Neut # (Auto) 13.1 H Lymph # (Auto) 0.3 L [place] # (Auto) 0.4 Eos # (Auto) 0.0 Baso # (Auto) 0.1 WBC Differential Manual diff final . Diff Scan Auto diff confirmed Seg Neuts % (Manual) 83 H Band Neuts % (Manual) 11 H Lymphocytes % (Manual) 2 L Monocytes % (Manual) 3 Plasma Cell % (Manual) 1 H Abs Neuts (Manual) 12.9 H Differential Comment . . Platelet Estimate Low L Low L Platelet Morphology Enlarged H Normal Sodium 147 H Potassium 4.5 Chloride 109 H Carbon Dioxide 31.1 Anion Gap 7 BUN 68 H Creatinine 0.94 Estimated GFR 77 L POC Glucose Random Glucose 138 H Calcium 6.9 L* Prot Corrected Calcium 8.3 L Total Bilirubin 5.2 H AST 125 H ALT 199 H Alkaline Phosphatase 183 H Total Protein 4.5 L D Albumin 1.5 L 10/15/17 11:40 WBC RBC Hgb Hct MCV MCH MCHC RDW Plt Count MPV Prelim Diff (Auto) Neut % (Auto) Lymph % (Auto) [place] % (Auto) Eos % (Auto) Baso % (Auto) Neut # (Auto) Lymph # (Auto) [place] # (Auto) Eos # (Auto) Baso # (Auto) WBC Differential Diff Scan Seg Neuts % (Manual) Band Neuts % (Manual) Lymphocytes % (Manual) Monocytes % (Manual) Plasma Cell % (Manual) Abs Neuts (Manual) Differential Comment Platelet Estimate Platelet Morphology Sodium Potassium Chloride Carbon Dioxide Anion Gap BUN Creatinine Estimated GFR POC Glucose 114 H Random Glucose Calcium Prot Corrected Calcium Total Bilirubin AST ALT Alkaline Phosphatase Total Protein Albumin Microbiology 10/12/17 09:25 Blood - Peripheral Aerobic Blood Culture - Preliminary No growth in 3 days 10/12/17 09:25 Blood - Peripheral Anaerobic Blood Culture - Final QNS - See aerobic report. 10/12/17 09:31 Blood - Peripheral Aerobic Blood Culture - Preliminary No growth in 3 days 10/12/17 09:31 Blood - Peripheral Anaerobic Blood Culture - Final QNS - See aerobic report. 10/12/17 20:10 Sputum - Endotracheal Gram Stain - Final 10/12/17 20:10 Sputum - Endotracheal Sputum Culture - Final Heavy growth normal respiratory lesli 10/12/17 20:10 Clean Catch Urine Urine Culture - Preliminary Yeast species - Imaging Impressions Chest X-Ray 10/15/17 08:20 CONCLUSION: There is complete opacification of the left hemithorax which is a new finding from the previous study. Chest X-Ray 10/15/17 10:25 CONCLUSION: Improved aeration of the left lung is seen status post bronchoscopy. <Hui Hebert - Last Filed: 10/15/17 13:22> - Labs CBC & Chem 7: 10/15/17 08:43 10/15/17 04:41 Laboratory Results - last 24 hr 10/12/17 10/14/17 10/15/17 20:10 23:42 04:41 WBC 13.7 H RBC 4.30 L Hgb 13.3 Hct 41.5 MCV 96.4 MCH 30.9 MCHC 32.1 RDW 17.6 H Plt Count 38 L D MPV 11.7 H Prelim Diff (Auto) Manual diff required Neut % (Auto) Lymph % (Auto) [place] % (Auto) Eos % (Auto) Baso % (Auto) Neut # (Auto) Lymph # (Auto) [place] # (Auto) Eos # (Auto) Baso # (Auto) WBC Differential Manual diff final Diff Scan Seg Neuts % (Manual) 83 H Band Neuts % (Manual) 11 H Lymphocytes % (Manual) 2 L Monocytes % (Manual) 3 Plasma Cell % (Manual) 1 H Abs Neuts (Manual) 12.9 H Differential Comment . Platelet Estimate Low L Platelet Morphology Enlarged H Sodium Potassium Chloride Carbon Dioxide Anion Gap BUN Creatinine Estimated GFR POC Glucose 139 H Random Glucose Calcium Prot Corrected Calcium Total Bilirubin AST ALT Alkaline Phosphatase Total Protein Albumin Urine Color Dee Urine Clarity Cloudy H Urine pH 5.0 Ur Specific [place] 1.024 Urine Protein 30 H Urine Glucose (UA) Negative Urine Ketones Negative Urine Occult Blood Small H Urine Nitrate Negative Urine Bilirubin Small H Urine Ictotest Positive H Urine Urobilinogen 2.0 H Ur Leukocyte Esterase Negative Urine RBC 13 H Urine WBC 1 Amorphous Sediment Rare H Urine Bacteria Rare H Urine Yeast Many H Micro UA Comment Culture indicated Urine Culture Comments Culture indicated 10/15/17 10/15/17 10/15/17 04:41 08:43 11:40 WBC 14.0 H RBC 4.49 L Hgb 13.7 Hct 42.9 MCV 95.6 MCH 30.6 MCHC 32.1 RDW 17.6 H Plt Count 40 L MPV 11.5 H Prelim Diff (Auto) Slide review pending Neut % (Auto) 93.8 H Lymph % (Auto) 2.2 L [place] % (Auto) 3.0 Eos % (Auto) 0.0 Baso % (Auto) 1.0 Neut # (Auto) 13.1 H Lymph # (Auto) 0.3 L [place] # (Auto) 0.4 Eos # (Auto) 0.0 Baso # (Auto) 0.1 WBC Differential . Diff Scan Auto diff confirmed Seg Neuts % (Manual) Band Neuts % (Manual) Lymphocytes % (Manual) Monocytes % (Manual) Plasma Cell % (Manual) Abs Neuts (Manual) Differential Comment . Platelet Estimate Low L Platelet Morphology Normal Sodium 147 H Potassium 4.5 Chloride 109 H Carbon Dioxide 31.1 Anion Gap 7 BUN 68 H Creatinine 0.94 Estimated GFR 77 L POC Glucose 114 H Random Glucose 138 H Calcium 6.9 L* Prot Corrected Calcium 8.3 L Total Bilirubin 5.2 H AST 125 H ALT 199 H Alkaline Phosphatase 183 H Total Protein 4.5 L D Albumin 1.5 L Urine Color Urine Clarity Urine pH Ur Specific [place] Urine Protein Urine Glucose (UA) Urine Ketones Urine Occult Blood Urine Nitrate Urine Bilirubin Urine Ictotest Urine Urobilinogen Ur Leukocyte Esterase Urine RBC Urine WBC Amorphous Sediment Urine Bacteria Urine Yeast Micro UA Comment Urine Culture Comments 10/15/17 16:29 WBC RBC Hgb Hct MCV MCH MCHC RDW Plt Count MPV Prelim Diff (Auto) Neut % (Auto) Lymph % (Auto) [place] % (Auto) Eos % (Auto) Baso % (Auto) Neut # (Auto) Lymph # (Auto) [place] # (Auto) Eos # (Auto) Baso # (Auto) WBC Differential Diff Scan Seg Neuts % (Manual) Band Neuts % (Manual) Lymphocytes % (Manual) Monocytes % (Manual) Plasma Cell % (Manual) Abs Neuts (Manual) Differential Comment Platelet Estimate Platelet Morphology Sodium Potassium Chloride Carbon Dioxide Anion Gap BUN Creatinine Estimated GFR POC Glucose 120 H Random Glucose Calcium Prot Corrected Calcium Total Bilirubin AST ALT Alkaline Phosphatase Total Protein Albumin Urine Color Urine Clarity Urine pH Ur Specific [place] Urine Protein Urine Glucose (UA) Urine Ketones Urine Occult Blood Urine Nitrate Urine Bilirubin Urine Ictotest Urine Urobilinogen Ur Leukocyte Esterase Urine RBC Urine WBC Amorphous Sediment Urine Bacteria Urine Yeast Micro UA Comment Urine Culture Comments Microbiology 10/12/17 20:10 Clean Catch Urine Urine Culture - Final Julia guilliermondii 10/12/17 09:25 Blood - Peripheral Aerobic Blood Culture - Preliminary No growth in 3 days 10/12/17 09:25 Blood - Peripheral Anaerobic Blood Culture - Final QNS - See aerobic report. 10/12/17 09:31 Blood - Peripheral Aerobic Blood Culture - Preliminary No growth in 3 days 10/12/17 09:31 Blood - Peripheral Anaerobic Blood Culture - Final QNS - See aerobic report. - Imaging Impressions Chest X-Ray 10/15/17 08:20 CONCLUSION: There is complete opacification of the left hemithorax which is a new finding from the previous study. Chest X-Ray 10/15/17 10:25 CONCLUSION: Improved aeration of the left lung is seen status post bronchoscopy. <Michael Berg - Last Filed: 10/15/17 23:04> Assessment and Plan - Plan Elevated LFTs (10/03) T bili-3.3 [id number] [id number] Alk phos-33 LFTs have been trending down since admission except the T bili which elevated up to 14.1 but is down to 10.2 today. Unable to obtain history from pt he is mechanically ventilated and on low dose Fentanyl for sedation. His eyes are open but he does not track. According to records pt was found unresponsive in his home. Elevation in LFTs likely multifactorial, shock liver is likely, as well as probable rhabdomyolysis. Unsure of underlying liver disease, unable to obtain history regarding risk factors. Thrombocytopenia, coagulopathy, and hypoalbuminemia noted. Liver US (10/04) No evidence of gallstones or biliary tract obstruction. Hepatitis panel negative 10/15/2017 patient continues to be monitored in the critical care setting with ventilator management. Lower extremity cyanosis noted, sinus rhythm heart rate 94. Hemoglobin 13.7, WBC count 14,000, unspecified leukocytosis. Patient has some random movement noted but not purposeful. Abdomen round, soft , taut, bowel sounds but seems to be tolerating Glucerna feedings at 50 cc an hour which is probably his goal rate. Liver workup in process. Due to patient's critical care status shock liver is probable. Total bilirubin 3 2017 5.2, AST 125 ALT 199 alkaline phosphatase 183, gradual improvement noted, hepatitis panel negative. Patient continues in serious condition. Plan: Diet OGT with Glucerna at 50 cc an hour, maintain goal rate Monitor labs for any acute changes Avoid hepatotoxins Prevacid Bowel regimen if needed Supportive care Patient was seen per myself and Dr. Berg, note was written on his behalf <Hui Hebert - Last Filed: 10/15/17 13:22> - Attending Attestation As above, LFT's trending down, overall unstable and critical. GI will sign off for now.please notify us if needed again. <Michael Berg - Last Filed: 10/15/17 23:04>
--- NOTE | 2017-10-15 14:34 | P.PNID ---
Subjective Remarks: Patient is an 82-year-old male, who was found unresponsive on the floor in his apartment. He was admitted October 03. Initial evaluation showed CT of the head with atrophy and no acute findings. CT of the chest with bilateral effusion. CT of the abdomen did not show any abscess, and it did show a compression fracture and L2. He also had an infrarenal abdominal aortic aneurysm that is about 3.7 cm. His white count then was 12,000, and his platelets were low. Urinalysis showed some very mild pyuria. He also had an elevated troponin and elevated lactic acid as well as creatinine. Patient ruled in for an MO, but cardiology felt that he is not a candidate for cardiac catheterization. He also had abnormal liver function tests. Patient was started on empiric antibiotics for sepsis and was given vancomycin and Zosyn. His blood cultures came back negative as well as a urine culture. On October 05 , he had increased respiratory distress and ended up getting intubated, and he has been on the vent since. He had a central line put in in his right IJ. Patient also was started on pressors. Since October 10, he started having fevers. Repeat blood cultures on October 09 and sputum cultures were okay. Patient also had undergone thoracenteses, and the fluid looks more transudative. He is currently off pressors. Remains on the vent. His LFTs remain elevated. He has had ultrasound of the abdomen which was okay. His chest x-ray is still showing bilateral effusions, worse on the left side but it is not worsening. Infectious disease consultation has been requested to evaluate the patient. Notes reviewed Sedated on the vent FiO2 at 80% Last fever 10/13 Had bronch done Last CXR better after bronch BP ok Antibiotics: Levaquin Micafungin Past Medical History: Abdominal aortic aneurysm (Acute) Hypertension (Acute) History of tonsillectomy and adenoidectomy Allergies/Adverse Reactions: Allergies No Allergy Information Available Allergy (Unverified 10/03/17 18:31) ALTERED MENTAL STATUS Objective Vital Signs 10/14/17 14:47 10/14/17 15:00 10/14/17 16:00 Temperature 99.3 F 99.3 F Pulse Rate 100 H 96 H Respiratory Rate 18 19 22 Blood Pressure 105/64 95/64 L Pulse Oximetry 96 94 L 90 L 10/14/17 17:00 10/14/17 18:00 10/14/17 19:00 Temperature 98.1 F 98.2 F 98.2 F Pulse Rate 103 H 87 88 Respiratory Rate 15 15 16 Blood Pressure 116/75 103/64 103/67 Pulse Oximetry 92 L 92 L 93 L 10/14/17 20:00 10/14/17 20:11 10/14/17 21:00 Temperature 98.4 F 98.4 F Pulse Rate 83 86 Respiratory Rate 15 15 15 Blood Pressure 97/62 L 102/65 Pulse Oximetry 92 L 95 92 L 10/14/17 22:00 10/14/17 23:00 10/15/17 00:00 Temperature 98.1 F 98.1 F 98.2 F Pulse Rate 95 H 93 H 91 H Respiratory Rate 11 L 13 15 Blood Pressure 112/70 109/71 105/71 Pulse Oximetry 92 L 92 L 92 L 10/15/17 01:00 10/15/17 01:52 10/15/17 02:00 Temperature Pulse Rate 92 H 85 Respiratory Rate 15 15 15 Blood Pressure 101/64 99/58 L Pulse Oximetry 95 94 L 93 L 10/15/17 03:00 10/15/17 03:56 10/15/17 04:00 Temperature 99 F Pulse Rate 90 87 Respiratory Rate 15 15 16 Blood Pressure 101/62 100/60 Pulse Oximetry 93 L 93 L 93 L 10/15/17 06:00 10/15/17 08:54 10/15/17 10:26 Temperature Pulse Rate 89 Respiratory Rate 15 Blood Pressure Pulse Oximetry 99 10/15/17 10:38 10/15/17 10:39 10/15/17 10:40 Temperature Pulse Rate 100 H 101 H 101 H Respiratory Rate 18 24 21 Blood Pressure 100/64 105/68 109/68 Pulse Oximetry 96 96 10/15/17 10:41 10/15/17 10:42 10/15/17 10:43 Temperature Pulse Rate 101 H 102 H 101 H Respiratory Rate 19 19 20 Blood Pressure 108/68 107/67 110/69 Pulse Oximetry 10/15/17 10:44 10/15/17 10:45 10/15/17 10:46 Temperature Pulse Rate 100 H 99 H 98 H Respiratory Rate 18 19 18 Blood Pressure 105/66 103/65 101/64 Pulse Oximetry 10/15/17 10:47 10/15/17 10:48 09/03/18 10:49 Temperature Pulse Rate 97 H 97 H 97 H Respiratory Rate 20 19 19 Blood Pressure 101/63 103/63 106/65 Pulse Oximetry 10/15/17 10:50 10/15/17 10:51 10/15/17 10:52 Temperature Pulse Rate 97 H 98 H 98 H Respiratory Rate 19 21 18 Blood Pressure 105/64 108/68 107/66 Pulse Oximetry 10/15/17 10:53 10/15/17 10:54 10/15/17 10:55 Temperature Pulse Rate 98 H 97 H 97 H Respiratory Rate 18 18 20 Blood Pressure 104/67 103/65 103/64 Pulse Oximetry 10/15/17 10:56 10/15/17 10:57 10/15/17 10:58 Temperature Pulse Rate 96 H 97 H 98 H Respiratory Rate 18 21 18 Blood Pressure 102/64 102/66 104/64 Pulse Oximetry 10/15/17 10:59 10/15/17 11:00 10/15/17 11:01 Temperature Pulse Rate 97 H 97 H 96 H Respiratory Rate 17 17 17 Blood Pressure 105/63 102/63 101/60 Pulse Oximetry 10/15/17 11:02 10/15/17 12:00 10/15/17 12:39 Temperature Pulse Rate 96 H 91 H Respiratory Rate 17 23 Blood Pressure 100/61 Pulse Oximetry 97 10/15/17 12:41 10/15/17 13:38 10/15/17 13:39 Temperature 98.8 F Pulse Rate 104 H 91 H 92 H Respiratory Rate 16 16 23 Blood Pressure 103/61 103/62 Pulse Oximetry 97 97 10/15/17 13:40 10/15/17 13:41 10/15/17 13:42 Temperature Pulse Rate 95 H 98 H 107 H Respiratory Rate Blood Pressure 112/74 137/72 112/70 Pulse Oximetry 97 10/15/17 13:43 10/15/17 13:44 10/15/17 13:45 Temperature Pulse Rate 105 H 104 H 101 H Respiratory Rate 16 15 15 Blood Pressure 111/74 108/69 107/68 Pulse Oximetry 97 97 97 10/15/17 13:46 10/15/17 13:47 10/15/17 13:48 Temperature Pulse Rate 100 H 97 H 96 H Respiratory Rate 15 15 15 Blood Pressure 107/68 107/65 105/63 Pulse Oximetry 97 97 97 10/15/17 13:49 10/15/17 13:50 10/15/17 13:51 Temperature Pulse Rate 94 H 92 H 92 H Respiratory Rate 15 16 16 Blood Pressure 103/63 103/63 102/61 Pulse Oximetry 97 98 97 10/15/17 13:52 10/15/17 13:53 10/15/17 13:54 Temperature Pulse Rate 91 H 90 92 H Respiratory Rate 16 16 16 Blood Pressure 102/59 L 101/60 104/64 Pulse Oximetry 97 98 97 10/15/17 13:55 10/15/17 13:56 10/15/17 13:57 Temperature Pulse Rate 93 H 93 H 93 H Respiratory Rate 22 15 15 Blood Pressure 106/62 105/63 102/63 Pulse Oximetry 97 97 97 10/15/17 13:58 10/15/17 13:59 10/15/17 14:00 Temperature Pulse Rate 91 H 91 H 91 H Respiratory Rate 16 16 16 Blood Pressure 100/61 102/62 102/60 Pulse Oximetry 97 97 97 10/15/17 14:01 10/15/17 14:02 Temperature Pulse Rate 91 H 91 H Respiratory Rate 16 16 Blood Pressure 103/59 L 100/60 Pulse Oximetry 97 97 Intake & Output 10/14/17 10/15/17 10/15/17 18:59 06:59 18:59 Intake Total 1180 / 1180 2244 / 2244 100 / 100 Output Total 900 / 900 950 / 950 Balance 280 / 280 1294 / 1294 100 / 100 Weight 74.9 kg Intake: IV 200 / 200 1070 / 1070 100 / 100 D5W Inj 1,000 ML @ 50 mls/hr IV 1000 / 1000 .CONT .Q20H JIGNA Rx#:[id number] Levaquin 500 mg Premix Inj 500 100 / 100 mg In 100 ml @ 100 mls/hr IV. SIG Q48H JIGNA Rx#:[id number] Mycamine Inj 100 MG In NS Inj 100 / 100 100 / 100 100 ML @ 100 mls/hr IV.SIG Q24H JIGNA Rx#:[id number] fentaNYL 10 mcg/mL Premix Drip 70 / 70 2,500 mcg In 250 ml @ 50 MCG/HR 5 mls/hr IV.SIG TITRATE PRN Rx #:[id number] Tube Feeding 480 / 480 674 / 674 Water Bolus Amount 500 / 500 500 / 500 Output: Urine Amount (Catheter) 900 / 900 950 / 950 Indwelling Urethral Catheter 900 / 900 950 / 950 Other: Date of Last Bowel Movement 10/14/17 10/15/17 10/14/17 # Incontinent Bowel Movements 1 1 10/12/17 20:10 Clean Catch Urine Urine Culture - Final Julia guilliermondii 10/15/17 10:21 Bronchial - Left Lower Lobe Gram Stain - Pending 10/15/17 10:21 Bronchial - Left Lower Lobe Bronchial Culture - Pending 10/12/17 09:25 Blood - Peripheral Aerobic Blood Culture - Preliminary No growth in 3 days 10/12/17 09:25 Blood - Peripheral Anaerobic Blood Culture - Final QNS - See aerobic report. 10/12/17 09:31 Blood - Peripheral Aerobic Blood Culture - Preliminary No growth in 3 days 10/12/17 09:31 Blood - Peripheral Anaerobic Blood Culture - Final QNS - See aerobic report. 10/12/17 20:10 Sputum - Endotracheal Gram Stain - Final 10/12/17 20:10 Sputum - Endotracheal Sputum Culture - Final Heavy growth normal respiratory lesli Lab - Hematology Results 10/14/17 10/15/17 10/15/17 04:25 04:41 08:43 WBC 15.2 H 13.7 H 14.0 H RBC 4.55 4.30 L 4.49 L Hgb 14.2 13.3 13.7 Hct 43.4 41.5 42.9 MCV 95.6 96.4 95.6 MCH 31.1 30.9 30.6 MCHC 32.6 32.1 32.1 RDW 17.5 H 17.6 H 17.6 H Plt Count 86 L 38 L D 40 L MPV 10.0 11.7 H 11.5 H Prelim Diff (Auto) Slide review pending Manual diff required Slide review pending Neut % (Auto) 92.5 H 93.8 H Lymph % (Auto) 2.4 L 2.2 L [place] % (Auto) 5.0 3.0 Eos % (Auto) 0.0 0.0 Baso % (Auto) 0.1 1.0 Neut # (Auto) 14.1 H 13.1 H Lymph # (Auto) 0.4 L 0.3 L [place] # (Auto) 0.8 0.4 Eos # (Auto) 0.0 0.0 Baso # (Auto) 0.0 0.1 WBC Differential Manual diff final Manual diff final . Diff Scan Auto diff confirmed Seg Neuts % (Manual) 87 H 83 H Band Neuts % (Manual) 8 H 11 H Lymphocytes % (Manual) 1 L 2 L Monocytes % (Manual) 3 3 Myelocytes % (Man) 1 H Plasma Cell % (Manual) 1 H Abs Neuts (Manual) 14.6 H 12.9 H Differential Comment . . . Platelet Estimate Low L Low L Low L Platelet Morphology Enlarged H Enlarged H Normal Polychromasia 2.2 H Lab - Chemistry Results 10/13/17 10/13/17 10/14/17 18:55 23:38 04:25 Sodium 147 H Potassium 4.8 Chloride 108 H Carbon Dioxide 29.5 Anion Gap 10 BUN 78 H Creatinine 1.27 Estimated GFR 54 L POC Glucose 176 H 138 H Random Glucose 112 H Calcium 7.1 L* Prot Corrected Calcium 8.2 L Total Bilirubin 6.1 H AST 149 H ALT 251 H Alkaline Phosphatase 168 H Total Protein 5.1 L Albumin 1.7 L 10/14/17 10/14/17 10/14/17 06:19 11:06 17:49 Sodium Potassium Chloride Carbon Dioxide Anion Gap BUN Creatinine Estimated GFR POC Glucose 128 H 124 H 111 H Random Glucose Calcium Prot Corrected Calcium Total Bilirubin AST ALT Alkaline Phosphatase Total Protein Albumin 10/14/17 10/14/17 10/15/17 20:42 23:42 04:41 Sodium 147 H Potassium 4.5 Chloride 109 H Carbon Dioxide 31.1 Anion Gap 7 BUN 68 H Creatinine 0.94 Estimated GFR 77 L POC Glucose 156 H 139 H Random Glucose 138 H Calcium 6.9 L* Prot Corrected Calcium 8.3 L Total Bilirubin 5.2 H AST 125 H ALT 199 H Alkaline Phosphatase 183 H Total Protein 4.5 L D Albumin 1.5 L 10/15/17 11:40 Sodium Potassium Chloride Carbon Dioxide Anion Gap BUN Creatinine Estimated GFR POC Glucose 114 H Random Glucose Calcium Prot Corrected Calcium Total Bilirubin AST ALT Alkaline Phosphatase Total Protein Albumin Imaging: ITS Impressions Elbow X-Ray 10/03/17 18:31 CONCLUSION: There is discontinuity of the tip of a small olecranon spur without soft tissue swelling. Cannot exclude a fracture. Recommend correlation with clinical exam for point tenderness in this area. Hip X-Ray 10/03/17 18:31 CONCLUSION: No fracture seen. Lumbar Spine X-Ray 10/03/17 18:31 CONCLUSION: 60% anterior compression fracture of L2. No retropulsed fragments seen. Cervical Spine CT 10/03/17 18:35 CONCLUSION: 1. No evidence of compression deformity, fracture, or spondylolisthesis. 2. Advanced hypertrophic degenerative changes in the facet joints, more severe on the right. Abdomen/Pelvis CT 10/03/17 18:38 CONCLUSION: 1. Bilateral pleural effusions, right greater than left. 2. Nonobstructing 4 mm stone in the right renal collecting system. 3. 3.7 cm infrarenal abdominal aortic aneurysm. 4. Small fat-containing left inguinal hernia. Chest CT 10/03/17 18:38 CONCLUSION: 1. Large right and small left pleural effusion. 2. No fracture seen. No evidence of pneumothorax. Liver Ultrasound 10/04/17 00:00 CONCLUSION: 1. No evidence of gallstones or biliary tract obstruction. 2. There is a cyst along the upper pole the right kidney measuring 3 cm. 3. Bilateral pleural effusions. Head CT 10/06/17 00:00 CONCLUSION: 1. Stable evaluation the brain. 2. No evidence of acute infarct, hemorrhage, mass or edema. . Head MRI 10/09/17 00:00 CONCLUSION: 1. No acute infarct, acute hemorrhage, midline shift or extra-axial fluid collections. 2. Mild cerebral atrophy. 3. 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 4. Minimal small vessel ischemic changes within the periventricular and subcortical white matter bilaterally. Chest X-Ray 10/15/17 10:25 CONCLUSION: Improved aeration of the left lung is seen status post bronchoscopy. Physical Exam: GENERAL: On the vent, not in respiratory distress. Sedated SKIN: Cool and dry. Has erythematous maculopapular rash in his ruck. Has some purpura in BUE. Has cyanosis both feet, cold. HEENT: Head atraumatic. Pale sclera. His reactive to light. NECK: Trachea midline. Supple and not tender, no meningeal sign. RIJ central line looks ok CARDIOVASCULAR: Regular rate and rhythm. No murmurs, rubs or gallops heard RESPIRATORY: Coarse breath sounds. Decreased breath sounds at the bases. No rales, wheezing or rhonchi ABDOMEN: Soft, no reaction to palpation. Bowel sounds present and normoactive. No organomegaly. EXTREMITIES: Edema at all extremities. Both hands are warm, edematous. Feet are cold with cyanosis both soles. NEUROLOGICAL: Eyes open, not following commands. No Babinski, no ankle clonus PSYCHIATRIC: Unable to assess LINE: No evidence of infection : Has alvarez in place, urine looks clear. Genitalia edematous Assessment and Plan - Plan Impression Fevers started 10/10, better - has been on Vancomycin and Zosyn since 10/03 - sputum with NF - has line placed 10/06 - Bilirubin worsening - CXR with effusions; transudative - has alvarez. Urine culture has many yeast. - ?new infection - ?drug fever Respiratory failure, CHF MO Elevated LFT, ?due to shock, ?hepatic congestion Renal insufficiency, due to shock Julia UTI. Recommendation Continue Levaquin empiric Continue micafungin. Repeat Ua and C/S Follow new C/S Follow temps Monitor progress
[2017-10-16] MEDS: Insulin NovoLOG Aspart Correctional Sugar Inj SQ SCH ×5 (00:25→23:53)
--- NOTE | 2017-10-16 07:08 | P.PNCC ---
Subjective Subjective Remarks/Hospital Course: Patient is an elderly male with unknown past medical history who was found on the floor of his apartment with door open. Apparently neighbors checked on him and found him unresponsive on the floor. Patient was brought to the emergency department and underwent extensive workup to rule out trauma. CT of the head showed moderate to severe atrophy, CT of the chest showed moderate right-sided and small left effusion. 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 X-ray of his right elbow showed a possible olecranon spur discontinuity. Multiple lab abnormalities white count was 12.8 with 87% neutrophils platelet count 60 INR was 2.3. UA showed evidence of UTI, patient received a dose of cefepime for severe sepsis. Also his troponin was elevated at 6.8, lactic acid was 8.3 BUN 67 creatinine 2.71. Patient received 2 L normal saline boluses. Dr. Jaimes from cardiology was contacted for an STEMI. Due to poor mentation and multiorgan failure patient was deemed not a candidate for cardiac catheterization. Cannot use aspirin or heparin due to platelet count of 60,000 INR of 2.3. Other abnormal labs included transaminitis and elevated CPK. I evaluated the patient in the emergency department. He is severely encephalopathic appears critical, tachypneic but protecting airway. He is not able to say his name or mouth any words. He continues to move his head side to side but not communicative. I have added additional 2 L normal saline bolus, give 2 A of bicarb. Check ABG. Broad-spectrum antibiotics with vancomycin 1 dose and renally dosed Zosyn. Patient is very critically ill and has multiorgan failure, overall prognosis appears very poor. 10/04: This morning patient is not on any pressors. He is awake, agitated at times requiring restraints. He is saying incomprehensible words. T-max of 99.1. Urine output is minimal. 10/05: No events over the night. T-max of 98.4. Patient's mental status remains unchanged. Lethargic but easily arousable, not following any commands, saying incomprehensible words. Urine output of 525 mL's over the last 24 hours. Patient identified as Pablo Slater, 82-year-old gentleman. Still no family contact yet. 10/06: Over the night, patient developed worsening hypoxia with periods of apnea therefore he was intubated and now he is mechanically ventilated. This morning he is on no sedation, thrashing in bed, not following any commands. T-max of 99.9. Urine output is low, 200 mL's over the last 24 hours. Low blood pressure over the night noted, 1000 mL's of LR bolus given map remains borderline low normal. Morning chest x-ray reviewed, bibasilar infiltrates, right greater than left. ET tube is in good position. ROS -unobtainable due to patient's mental status SUBJECTIVE: 10/07: Low-grade temperatures overnight. Remains on norepinephrine drip at 2 mcg /min. Arousable on fentanyl drip at 100 mg an hour. No bowel movement. 10/08 Patient remains intubated and sedated with Fentanyl infusion. Afebrile. On Levophed 1 tu. Renal function is improving with Cr: 1.51 from 1.71. 10/09 No events overnight intubated and sedated with Fentanyl infusion on Levophed 2 mics. T:99.7. 10/10 Patient remains intubated and sedated with Fentanyl drip. s/p right sided thoracentesis yesterday with removal 1.5L (transudative fluid) On Levophed 2 mics. 10/11 : Remains sedated, orally intubated on mechanical ventilation. 10/12 Patient remains intubated and on Fentanyl infusion for sedation. T:101.5 last night. 10/13 Patient remains intubated and sedated, T 100.8 10/14 Patient remains intubated and sedated . Afebrile. 10/15 Patient is sedated with Fentanyl and intubated. Afebrile. 10/16 Patient remains intubated and sedated. T:99.8 last night. s/p bronch yesterday ( opacification of left hemithorax 2nd mucous plugs) CXR post bronch showed improved aeration of left lung Objective Vital Signs / I&O: Vital Signs 10/15/17 08:54 10/15/17 10:26 10/15/17 10:38 Temperature Pulse Rate 100 H Respiratory Rate 15 18 Blood Pressure 100/64 Pulse Oximetry 99 96 10/15/17 10:39 10/15/17 10:40 10/15/17 10:41 Temperature Pulse Rate 101 H 101 H 101 H Respiratory Rate 24 21 19 Blood Pressure 105/68 109/68 108/68 Pulse Oximetry 96 10/15/17 10:42 10/15/17 10:43 10/15/17 10:44 Temperature Pulse Rate 102 H 101 H 100 H Respiratory Rate 19 20 18 Blood Pressure 107/67 110/69 105/66 Pulse Oximetry 10/15/17 10:45 10/15/17 10:46 10/15/17 10:47 Temperature Pulse Rate 99 H 98 H 97 H Respiratory Rate 19 18 20 Blood Pressure 103/65 101/64 101/63 Pulse Oximetry 10/15/17 10:48 10/15/17 10:49 10/15/17 10:50 Temperature Pulse Rate 97 H 97 H 97 H Respiratory Rate 19 19 19 Blood Pressure 103/63 106/65 105/64 Pulse Oximetry 10/15/17 10:51 10/15/17 10:52 10/15/17 10:53 Temperature Pulse Rate 98 H 98 H 98 H Respiratory Rate 21 18 18 Blood Pressure 108/68 107/66 104/67 Pulse Oximetry 10/15/17 10:54 10/15/17 10:55 10/15/17 10:56 Temperature Pulse Rate 97 H 97 H 96 H Respiratory Rate 18 20 18 Blood Pressure 103/65 103/64 102/64 Pulse Oximetry 10/15/17 10:57 10/15/17 10:58 10/15/17 10:59 Temperature Pulse Rate 97 H 98 H 97 H Respiratory Rate 21 18 17 Blood Pressure 102/66 104/64 105/63 Pulse Oximetry 10/15/17 11:00 10/15/17 11:01 10/15/17 11:02 Temperature Pulse Rate 97 H 96 H 96 H Respiratory Rate 17 17 17 Blood Pressure 102/63 101/60 100/61 Pulse Oximetry 10/15/17 12:00 10/15/17 12:39 10/15/17 12:41 Temperature Pulse Rate 91 H 104 H Respiratory Rate 23 16 Blood Pressure Pulse Oximetry 97 10/15/17 13:38 10/15/17 13:39 10/15/17 13:40 Temperature 98.8 F Pulse Rate 91 H 92 H 95 H Respiratory Rate 16 23 Blood Pressure 103/61 103/62 112/74 Pulse Oximetry 97 97 10/15/17 13:41 10/15/17 13:42 10/15/17 13:43 Temperature Pulse Rate 98 H 107 H 105 H Respiratory Rate 16 Blood Pressure 137/72 112/70 111/74 Pulse Oximetry 97 97 10/15/17 13:44 10/15/17 13:45 10/15/17 13:46 Temperature Pulse Rate 104 H 101 H 100 H Respiratory Rate 15 15 15 Blood Pressure 108/69 107/68 107/68 Pulse Oximetry 97 97 97 10/15/17 13:47 10/15/17 13:48 10/15/17 13:49 Temperature Pulse Rate 97 H 96 H 94 H Respiratory Rate 15 15 15 Blood Pressure 107/65 105/63 103/63 Pulse Oximetry 97 97 97 10/15/17 13:50 10/15/17 13:51 10/15/17 13:52 Temperature Pulse Rate 92 H 92 H 91 H Respiratory Rate 16 16 16 Blood Pressure 103/63 102/61 102/59 L Pulse Oximetry 98 97 97 10/15/17 13:53 10/15/17 13:54 10/15/17 13:55 Temperature Pulse Rate 90 92 H 93 H Respiratory Rate 16 16 22 Blood Pressure 101/60 104/64 106/62 Pulse Oximetry 98 97 97 10/15/17 13:56 10/15/17 13:57 10/15/17 13:58 Temperature Pulse Rate 93 H 93 H 91 H Respiratory Rate 15 15 16 Blood Pressure 105/63 102/63 100/61 Pulse Oximetry 97 97 97 10/15/17 13:59 10/15/17 14:00 10/15/17 14:01 Temperature Pulse Rate 91 H 91 H 91 H Respiratory Rate 16 16 16 Blood Pressure 102/62 102/60 103/59 L Pulse Oximetry 97 97 97 10/15/17 14:02 10/15/17 16:00 10/15/17 16:26 Temperature Pulse Rate 91 H 98 H 90 Respiratory Rate 16 16 Blood Pressure 100/60 98/58 L Pulse Oximetry 97 97 10/15/17 16:27 10/15/17 16:28 10/15/17 16:29 Temperature Pulse Rate 90 91 H 96 H Respiratory Rate 15 20 27 H Blood Pressure 99/58 L 100/62 107/69 Pulse Oximetry 97 97 95 10/15/17 16:30 10/15/17 16:31 09/03/18 16:32 Temperature Pulse Rate 100 H 103 H 102 H Respiratory Rate 30 H 15 15 Blood Pressure 115/79 108/66 109/75 Pulse Oximetry 93 L 97 97 10/15/17 16:33 10/15/17 16:34 10/15/17 16:35 Temperature Pulse Rate 101 H 102 H 101 H Respiratory Rate 15 15 16 Blood Pressure 107/73 109/71 109/69 Pulse Oximetry 97 97 97 10/15/17 16:36 10/15/17 16:37 10/15/17 16:39 Temperature Pulse Rate 100 H 102 H 106 H Respiratory Rate 17 30 H 23 Blood Pressure 108/70 111/73 130/85 Pulse Oximetry 97 98 97 10/15/17 16:40 10/15/17 16:41 10/15/17 16:42 Temperature Pulse Rate 106 H 104 H 104 H Respiratory Rate 16 17 18 Blood Pressure 110/69 111/71 112/72 Pulse Oximetry 97 97 97 10/15/17 16:43 10/15/17 16:44 10/15/17 16:45 Temperature Pulse Rate 104 H 106 H 105 H Respiratory Rate 25 H 18 15 Blood Pressure 115/76 119/73 117/69 Pulse Oximetry 97 96 96 10/15/17 16:46 10/15/17 16:47 10/15/17 16:48 Temperature Pulse Rate 104 H 105 H 104 H Respiratory Rate 25 H 17 16 Blood Pressure 117/74 117/74 114/72 Pulse Oximetry 96 97 97 10/15/17 16:49 10/15/17 16:50 10/15/17 17:00 Temperature Pulse Rate 103 H 103 H 104 H Respiratory Rate 18 23 16 Blood Pressure 116/71 112/69 Pulse Oximetry 97 96 97 10/15/17 17:57 10/15/17 18:00 10/15/17 19:40 Temperature 99.6 F Pulse Rate 95 H 94 H Respiratory Rate 15 15 Blood Pressure Pulse Oximetry 96 98 10/15/17 20:00 10/15/17 22:00 10/15/17 23:22 Temperature 99.8 F H Pulse Rate 101 H 90 93 H Respiratory Rate 19 16 Blood Pressure 120/65 Pulse Oximetry 99 10/16/17 00:00 10/16/17 02:00 10/16/17 03:12 Temperature 99.3 F Pulse Rate 90 97 H 108 H Respiratory Rate 15 21 Blood Pressure 96/56 L Pulse Oximetry 99 10/16/17 04:00 10/16/17 04:03 10/16/17 06:00 Temperature 99.0 F Pulse Rate 109 H 103 H Respiratory Rate 16 21 Blood Pressure 111/75 Pulse Oximetry 100 99 Intake & Output 10/15/17 10/16/17 10/16/17 18:59 06:59 18:59 Intake Total 1652 / 1652 1184 / 1184 Output Total 825 / 825 2400 / 2400 Balance 827 / 827 -1216 / -1216 Weight 75.5 kg Intake: IV 650 / 650 D5W Inj 1,000 ML @ 50 mls/hr IV 300 / 300 .CONT .Q20H JIGNA Rx#:[id number] Mycamine Inj 100 MG In NS Inj 100 / 100 100 ML @ 100 mls/hr IV.SIG Q24H JIGNA Rx#:[id number] fentaNYL 10 mcg/mL Premix Drip 250 / 250 2,500 mcg In 250 ml @ 50 MCG/HR 5 mls/hr IV.SIG TITRATE PRN Rx #:[id number] Oral 0 / 0 Tube Feeding 502 / 502 584 / 584 Tube Irrigant 100 / 100 Water Bolus Amount 500 / 500 500 / 500 Output: Pleural Fluid 1500 / 1500 Urine Amount (Catheter) 825 / 825 900 / 900 Indwelling Urethral Catheter 825 / 825 900 / 900 Other: Date of Last Bowel Movement 10/14/17 10/14/17 # Bowel Movements 1 # Incontinent Bowel Movements 1 Result Diagrams: 10/16/17 07:27 10/16/17 07:27 Other Results: Laboratory Results - last 12 hr 10/15/17 10/16/17 10/16/17 23:53 04:31 06:11 POC Glucose 131 H 150 H 168 H Imaging: Elbow X-Ray 10/03/17 18:31 CONCLUSION: There is discontinuity of the tip of a small olecranon spur without soft tissue swelling. Cannot exclude a fracture. Recommend correlation with clinical exam for point tenderness in this area. Hip X-Ray 10/03/17 18:31 CONCLUSION: No fracture seen. Lumbar Spine X-Ray 10/03/17 18:31 CONCLUSION: 60% anterior compression fracture of L2. No retropulsed fragments seen. Cervical Spine CT 10/03/17 18:35 CONCLUSION: 1. No evidence of compression deformity, fracture, or spondylolisthesis. 2. Advanced hypertrophic degenerative changes in the facet joints, more severe on the right. Abdomen/Pelvis CT 10/03/17 18:38 CONCLUSION: 1. Bilateral pleural effusions, right greater than left. 2. Nonobstructing 4 mm stone in the right renal collecting system. 3. 3.7 cm infrarenal abdominal aortic aneurysm. 4. Small fat-containing left inguinal hernia. Chest CT 10/03/17 18:38 CONCLUSION: 1. Large right and small left pleural effusion. 2. No fracture seen. No evidence of pneumothorax. Liver Ultrasound 10/04/17 00:00 CONCLUSION: 1. No evidence of gallstones or biliary tract obstruction. 2. There is a cyst along the upper pole the right kidney measuring 3 cm. 3. Bilateral pleural effusions. Head CT 10/06/17 00:00 CONCLUSION: 1. Stable evaluation the brain. 2. No evidence of acute infarct, hemorrhage, mass or edema. . Head MRI 10/09/17 00:00 CONCLUSION: 1. No acute infarct, acute hemorrhage, midline shift or extra-axial fluid collections. 2. Mild cerebral atrophy. 3. 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 4. Minimal small vessel ischemic changes within the periventricular and subcortical white matter bilaterally. Chest X-Ray 10/15/17 10:25 CONCLUSION: Improved aeration of the left lung is seen status post bronchoscopy. Objective Remarks: GENERAL: Elderly gentleman, poorly nourished, very deconditioned, ill-appearing , intubated HEENT: Pupils are equal and reactive. Sclerae anicteric. Neck supple without rigidity. Orally intubated. Neck veins are nondistended. No carotid bruit. CHEST: Scattered coarse breath sounds bilateral, decreased breath sounds at bases but overall improved air entry. No wheezes. CARDIOVASCULAR: Regular heart sounds, without murmurs. ABDOMEN: Soft, nontender, nondistended. Bowel sounds are decreased. No hepatomegaly or splenomegaly appreciated. MUSCULOSKELETAL: Remains tepid. 2+ peripheral pitting edema. Pulses are present. Dusky discoloration of the plantar surface of the toes. NEUROLOGICAL: Patient is intubated, lethargic, arousable by opening eyes and withdrawing to bilateral upper and lower extremities but he does not follow any commands. Grimaces to pain. Pupils remain equal and reactive. Assessment and Plan - Assessment and Plan Plan: 1. VDRF 2. Acute encephalopathy, likely toxic metabolic -probably some degree of dementia at base, no improvement so far 3. s/p Acute ME -followed by cardiology 4. Sepsis 5. Lactic acidosis- resolved 6. Bibasilar pneumonia 7. Transaminitis -liver enzymes are slowly trending down 8. JAVON -improving 9. Hypernatremia -slowly improving 10. Thrombocytopenia, anemia 11. L2 compression deformity/acuity unknown Plan Neuro: On Fentanyl infusion for sedation. Daily sedation vacation. 10/06 CT brain: No evidence of acute infarct, hemorrhage, mass or edema. neuro is following- Dr. Benites MRI brain: No acute infarct, acute hemorrhage, midline shift or extra- axial fluid collections. Mild cerebral atrophy. 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 Minimal small vessel ischemic changes within the periventricular and subcortical white matter bilaterally. Pulm: Continue with vent support keep sats >92% Bronchodilators, ICU vent bundle. s/p right sided thoracentesis with removal 1.5L ( Transudative fluid) SBT daily as ruth Bronch with BAL 10/15 showed thick mucous plugs obstructing office left main stem bronchus and LLL suctioned to clear BAL performed LLL. CXR post bronch showed much improved aeration of left lung. CV: Monitor HR and BP kep MAP>65mmHg, Lactic acid trending down 2.3 10/07 from 5.9 No aspirin or heparin due to worsening thrombocytopenia and coagulopathy No statin due to elevated liver enzymes : Monitor renal function, I/O's, electrolytes replacement as needed. Increase Free water 250ml Q8, diurese with Lasix 40mg x1 ID: Continue Levaquin, Micafungin per ID, monitor for signs of infections ( Fever, WBC) BC, urine cx 10/03: No growth, Followup on fluid, sputum cx 10/09: NGTD Panculture 10/12( Blood, sputum, urine) ID is following 10/12 Urine cx: Yeast Follow up on BAL results GI: On Prevacid 30mg daily. Monitor LFT's, Hepatitis profile negative Liver ultrasound reviewed -no gallstones or biliary tract obstruction. On Glucerna 1.5 @ 50ml/hr GI is following re hyperbilirubinemia/elevated LFT's Heme: Monitor CBC, Coags, s/p Transfuse 1 packed leuko-reduced platelets, and 1 cryo due to worsening thrombocytopenia on 10/07 s/p Transfuse 1u FFP and 2u PLT 10/09 for thoracentesis Endo: SSI for glycemic control DVT prophylaxis with SCDs and GI prophylaxis with lansoprazole Palliative care is following Lines: Peripheral IV's Condition critical Prognosis poor. Time spent on critical care excluding procedures 30 minutes
[2017-10-16 08:01] LABS: Baso % (Auto) 0.2 % (0.0-2.0); Eos % (Auto) 0.1 % (0.0-4.0); Hematocrit 43.8 % (39.0-51.0); Hemoglobin 14.1 gm/dL (13.0-17.0); Lymph # (Auto) 0.3 th/mm3 (1.0-4.8); Lymph % (Auto) 3.2 % (9.0-44.0); Mean Corpuscular HGB Conc 32.1 % (32.0-36.0); Mean Corpuscular Volume 96.4 fL (80.0-100.0); Mean Platelet Volume 11.8 fL (7.0-11.0); Mono # (Auto) 0.3 th/mm3 (0.0-0.9); Mono % (Auto) 3.9 % (0.0-8.0); Neut # (Auto) 7.4 th/mm3 (1.8-7.7); Neut % (Auto) 92.6 % (16.0-70.0); Platelet Count 42 th/mm3 (150-450); Red Blood Count 4.54 mil/mm3 (4.50-5.90); Red Cell Distribution Width 18.3 % (11.6-17.2); White Blood Count 7.9 th/mm3 (4.0-11.0)
[2017-10-16 08:23] LABS: Albumin 1.5 g/dL (3.4-5.0); Calcium 7.1 mg/dL (8.5-10.1); Carbon Dioxide 29.3 meq/L (21.0-32.0); Potassium 5.1 meq/L (3.5-5.1); Total Protein 4.9 g/dL (6.4-8.2)
--- NOTE | 2017-10-16 08:46 | XR ---
EXAM DATE: 10/16/2017 8:35 AM EDT AGE/SEX: 82 years / Male INDICATIONS: Short of breath. CLINICAL DATA: This is the patient's subsequent encounter. Patient reports that signs and symptoms h ave been present for 2 days and indicates a pain score of Nonresponsive. MEDICAL/SURGICAL HISTORY: None. None. COMPARISON: [facility] [place], CHEST 1V SINGLE AP, 10/15/2017. . FINDINGS: A single AP view of the chest demonstrates consolidation throughout the left lung and right lung base . Cardiomegaly. Moderate left pleural effusion. Endotracheal tube unchanged. Nasogastric tube with ti p in the mid to distal esophagus. This should be advanced. The cardiomediastinal contours are unrema rkable. Osseous structures are intact. CONCLUSION: 1. Increasing consolidation throughout the left lung. 2. Moderate left pleural effusion. 3. Nasogastric tube with tip in the mid to distal esophagus. This should be advanced. Electronically signed by: Michael Medrano MD 10/16/2017 8:45 AM EDT
[2017-10-16] MEDS: Hypromellose 0.3% Opth Gel 10 GM Bottle EACH EYE SCH ×2 (09:19→21:04)
[2017-10-16] MEDS: Senna/Docusate Sodium 8.6/50 MG Tablet PO SCH ×2 (09:21→21:04)
--- NOTE | 2017-10-16 09:39 | P.PNID ---
Subjective Remarks: Patient is an 82-year-old male, who was found unresponsive on the floor in his apartment. He was admitted October 03. Initial evaluation showed CT of the head with atrophy and no acute findings. CT of the chest with bilateral effusion. CT of the abdomen did not show any abscess, and it did show a compression fracture and L2. He also had an infrarenal abdominal aortic aneurysm that is about 3.7 cm. His white count then was 12,000, and his platelets were low. Urinalysis showed some very mild pyuria. He also had an elevated troponin and elevated lactic acid as well as creatinine. Patient ruled in for an UT, but cardiology felt that he is not a candidate for cardiac catheterization. He also had abnormal liver function tests. Patient was started on empiric antibiotics for sepsis and was given vancomycin and Zosyn. His blood cultures came back negative as well as a urine culture. On October 05 , he had increased respiratory distress and ended up getting intubated, and he has been on the vent since. He had a central line put in in his right IJ. Patient also was started on pressors. Since October 10, he started having fevers. Repeat blood cultures on October 09 and sputum cultures were okay. Patient also had undergone thoracenteses, and the fluid looks more transudative. He is currently off pressors. Remains on the vent. His LFTs remain elevated. He has had ultrasound of the abdomen which was okay. His chest x-ray is still showing bilateral effusions, worse on the left side but it is not worsening. Infectious disease consultation has been requested to evaluate the patient. Notes reviewed Sedated on the vent FiO2 at 40% Last fever 10/13 Had bronch done - results pending WBC down to normal LFT still elevated but improving CXR better aeration L after bronch BP ok, not on pressors Both feet distal half cold and cyanotic Per RN (+) doppler both feet Antibiotics: Levaquin Micafungin Past Medical History: Abdominal aortic aneurysm (Acute) Hypertension (Acute) History of tonsillectomy and adenoidectomy Allergies/Adverse Reactions: Allergies No Allergy Information Available Allergy (Unverified 10/03/17 18:31) ALTERED MENTAL STATUS Objective Vital Signs 10/15/17 10:26 10/15/17 10:38 10/15/17 10:39 Temperature Pulse Rate 100 H 101 H Respiratory Rate 18 24 Blood Pressure 100/64 105/68 Pulse Oximetry 99 96 96 10/15/17 10:40 10/15/17 10:41 10/15/17 10:42 Temperature Pulse Rate 101 H 101 H 102 H Respiratory Rate 21 19 19 Blood Pressure 109/68 108/68 107/67 Pulse Oximetry 10/15/17 10:43 10/15/17 10:44 10/15/17 10:45 Temperature Pulse Rate 101 H 100 H 99 H Respiratory Rate 20 18 19 Blood Pressure 110/69 105/66 103/65 Pulse Oximetry 10/15/17 10:46 10/15/17 10:47 10/15/17 10:48 Temperature Pulse Rate 98 H 97 H 97 H Respiratory Rate 18 20 19 Blood Pressure 101/64 101/63 103/63 Pulse Oximetry 10/15/17 10:49 10/15/17 10:50 10/15/17 10:51 Temperature Pulse Rate 97 H 97 H 98 H Respiratory Rate 19 19 21 Blood Pressure 106/65 105/64 108/68 Pulse Oximetry 10/15/17 10:52 10/15/17 10:53 10/15/17 10:54 Temperature Pulse Rate 98 H 98 H 97 H Respiratory Rate 18 18 18 Blood Pressure 107/66 104/67 103/65 Pulse Oximetry 10/15/17 10:55 10/15/17 10:56 10/15/17 10:57 Temperature Pulse Rate 97 H 96 H 97 H Respiratory Rate 20 18 21 Blood Pressure 103/64 102/64 102/66 Pulse Oximetry 10/15/17 10:58 10/15/17 10:59 10/15/17 11:00 Temperature Pulse Rate 98 H 97 H 97 H Respiratory Rate 18 17 17 Blood Pressure 104/64 105/63 102/63 Pulse Oximetry 10/15/17 11:01 10/15/17 11:02 10/15/17 12:00 Temperature Pulse Rate 96 H 96 H 91 H Respiratory Rate 17 17 Blood Pressure 101/60 100/61 Pulse Oximetry 10/15/17 12:39 10/15/17 12:41 10/15/17 13:38 Temperature 98.8 F Pulse Rate 104 H 91 H Respiratory Rate 23 16 16 Blood Pressure 103/61 Pulse Oximetry 97 97 10/15/17 13:39 10/15/17 13:40 10/15/17 13:41 Temperature Pulse Rate 92 H 95 H 98 H Respiratory Rate 23 Blood Pressure 103/62 112/74 137/72 Pulse Oximetry 97 10/15/17 13:42 10/15/17 13:43 10/15/17 13:44 Temperature Pulse Rate 107 H 105 H 104 H Respiratory Rate 16 15 Blood Pressure 112/70 111/74 108/69 Pulse Oximetry 97 97 97 10/15/17 13:45 10/15/17 13:46 10/15/17 13:47 Temperature Pulse Rate 101 H 100 H 97 H Respiratory Rate 15 15 15 Blood Pressure 107/68 107/68 107/65 Pulse Oximetry 97 97 97 10/15/17 13:48 10/15/17 13:49 10/15/17 13:50 Temperature Pulse Rate 96 H 94 H 92 H Respiratory Rate 15 15 16 Blood Pressure 105/63 103/63 103/63 Pulse Oximetry 97 97 98 10/15/17 13:51 10/15/17 13:52 10/15/17 13:53 Temperature Pulse Rate 92 H 91 H 90 Respiratory Rate 16 16 16 Blood Pressure 102/61 102/59 L 101/60 Pulse Oximetry 97 97 98 10/15/17 13:54 10/15/17 13:55 10/15/17 13:56 Temperature Pulse Rate 92 H 93 H 93 H Respiratory Rate 16 22 15 Blood Pressure 104/64 106/62 105/63 Pulse Oximetry 97 97 97 10/15/17 13:57 10/15/17 13:58 10/15/17 13:59 Temperature Pulse Rate 93 H 91 H 91 H Respiratory Rate 15 16 16 Blood Pressure 102/63 100/61 102/62 Pulse Oximetry 97 97 97 10/15/17 14:00 10/15/17 14:01 10/15/17 14:02 Temperature Pulse Rate 91 H 91 H 91 H Respiratory Rate 16 16 16 Blood Pressure 102/60 103/59 L 100/60 Pulse Oximetry 97 97 97 10/15/17 16:00 10/15/17 16:26 10/15/17 16:27 Temperature Pulse Rate 98 H 90 90 Respiratory Rate 16 15 Blood Pressure 98/58 L 99/58 L Pulse Oximetry 97 97 10/15/17 16:28 10/15/17 16:29 10/15/17 16:30 Temperature Pulse Rate 91 H 96 H 100 H Respiratory Rate 20 27 H 30 H Blood Pressure 100/62 107/69 115/79 Pulse Oximetry 97 95 93 L 10/15/17 16:31 10/15/17 16:32 10/15/17 16:33 Temperature Pulse Rate 103 H 102 H 101 H Respiratory Rate 15 15 15 Blood Pressure 108/66 109/75 107/73 Pulse Oximetry 97 97 97 10/15/17 16:34 10/15/17 16:35 10/15/17 16:36 Temperature Pulse Rate 102 H 101 H 100 H Respiratory Rate 15 16 17 Blood Pressure 109/71 109/69 108/70 Pulse Oximetry 97 97 97 10/15/17 16:37 10/15/17 16:39 10/15/17 16:40 Temperature Pulse Rate 102 H 106 H 106 H Respiratory Rate 30 H 23 16 Blood Pressure 111/73 130/85 110/69 Pulse Oximetry 98 97 97 10/15/17 16:41 10/15/17 16:42 10/15/17 16:43 Temperature Pulse Rate 104 H 104 H 104 H Respiratory Rate 17 18 25 H Blood Pressure 111/71 112/72 115/76 Pulse Oximetry 97 97 97 10/15/17 16:44 10/15/17 16:45 10/15/17 16:46 Temperature Pulse Rate 106 H 105 H 104 H Respiratory Rate 18 15 25 H Blood Pressure 119/73 117/69 117/74 Pulse Oximetry 96 96 96 10/15/17 16:47 10/15/17 16:48 10/15/17 16:49 Temperature Pulse Rate 105 H 104 H 103 H Respiratory Rate 17 16 18 Blood Pressure 117/74 114/72 116/71 Pulse Oximetry 97 97 97 10/15/17 16:50 10/15/17 17:00 10/15/17 17:57 Temperature Pulse Rate 103 H 104 H 95 H Respiratory Rate 23 16 Blood Pressure 112/69 Pulse Oximetry 96 97 10/15/17 18:00 10/15/17 19:40 10/15/17 20:00 Temperature 99.6 F 99.8 F H Pulse Rate 94 H 101 H Respiratory Rate 15 15 19 Blood Pressure 120/65 Pulse Oximetry 96 98 99 10/15/17 22:00 10/15/17 23:22 10/16/17 00:00 Temperature 99.3 F Pulse Rate 90 93 H 90 Respiratory Rate 16 15 Blood Pressure 96/56 L Pulse Oximetry 99 10/16/17 02:00 10/16/17 03:12 10/16/17 04:00 Temperature 99.0 F Pulse Rate 97 H 108 H 109 H Respiratory Rate 21 16 Blood Pressure 111/75 Pulse Oximetry 100 10/16/17 04:03 10/16/17 06:00 10/16/17 09:07 Temperature Pulse Rate 103 H 111 H Respiratory Rate 21 19 Blood Pressure Pulse Oximetry 99 96 Intake & Output 10/15/17 10/16/17 10/16/17 18:59 06:59 18:59 Intake Total 1652 / 1652 1184 / 1184 Output Total 825 / 825 2400 / 2400 Balance 827 / 827 -1216 / -1216 Weight 75.5 kg Intake: IV 650 / 650 D5W Inj 1,000 ML @ 50 mls/hr IV 300 / 300 .CONT .Q20H [facility] Rx#:[id number] Mycamine Inj 100 MG In NS Inj 100 / 100 100 ML @ 100 mls/hr IV.SIG Q24H [facility] Rx#:[id number] fentaNYL 10 mcg/mL Premix Drip 250 / 250 2,500 mcg In 250 ml @ 50 MCG/HR 5 mls/hr IV.SIG TITRATE PRN Rx #:[id number] Oral 0 / 0 Tube Feeding 502 / 502 584 / 584 Tube Irrigant 100 / 100 Water Bolus Amount 500 / 500 500 / 500 Output: Pleural Fluid 1500 / 1500 Urine Amount (Catheter) 825 / 825 900 / 900 Indwelling Urethral Catheter 825 / 825 900 / 900 Other: Date of Last Bowel Movement 10/14/17 10/14/17 # Bowel Movements 1 # Incontinent Bowel Movements 1 10/12/17 20:10 Clean Catch Urine Urine Culture - Final Julia guilliermondii 10/15/17 10:21 Bronchial - Left Lower Lobe Gram Stain - Pending 10/15/17 10:21 Bronchial - Left Lower Lobe Bronchial Culture - Pending 10/12/17 09:25 Blood - Peripheral Aerobic Blood Culture - Preliminary No growth in 3 days 10/12/17 09:25 Blood - Peripheral Anaerobic Blood Culture - Final QNS - See aerobic report. 10/12/17 09:31 Blood - Peripheral Aerobic Blood Culture - Preliminary No growth in 3 days 10/12/17 09:31 Blood - Peripheral Anaerobic Blood Culture - Final QNS - See aerobic report. 10/12/17 20:10 Sputum - Endotracheal Gram Stain - Final 10/12/17 20:10 Sputum - Endotracheal Sputum Culture - Final Heavy growth normal respiratory lesli Lab - Hematology Results 10/14/17 10/15/17 10/15/17 04:25 04:41 08:43 WBC 13.7 H 14.0 H RBC 4.30 L 4.49 L Hgb 13.3 13.7 Hct 41.5 42.9 MCV 96.4 95.6 MCH 30.9 30.6 MCHC 32.1 32.1 RDW 17.6 H 17.6 H Plt Count 38 L D 40 L MPV 11.7 H 11.5 H Prelim Diff (Auto) Manual diff required Slide review pending Neut % (Auto) 93.8 H Lymph % (Auto) 2.2 L [place] % (Auto) 3.0 Eos % (Auto) 0.0 Baso % (Auto) 1.0 Neut # (Auto) 13.1 H Lymph # (Auto) 0.3 L [place] # (Auto) 0.4 Eos # (Auto) 0.0 Baso # (Auto) 0.1 WBC Differential Manual diff final Manual diff final . Diff Scan Auto diff confirmed Seg Neuts % (Manual) 87 H 83 H Band Neuts % (Manual) 8 H 11 H Lymphocytes % (Manual) 1 L 2 L Monocytes % (Manual) 3 3 Myelocytes % (Man) 1 H Plasma Cell % (Manual) 1 H Abs Neuts (Manual) 14.6 H 12.9 H Differential Comment . . Platelet Estimate Low L Low L Low L Platelet Morphology Enlarged H Enlarged H Normal Polychromasia 2.2 H 10/16/17 07:27 WBC 7.9 RBC 4.54 Hgb 14.1 Hct 43.8 MCV 96.4 MCH 31.0 MCHC 32.1 RDW 18.3 H Plt Count 42 L MPV 11.8 H Prelim Diff (Auto) Slide review pending Neut % (Auto) 92.6 H Lymph % (Auto) 3.2 L [place] % (Auto) 3.9 Eos % (Auto) 0.1 Baso % (Auto) 0.2 Neut # (Auto) 7.4 Lymph # (Auto) 0.3 L [place] # (Auto) 0.3 Eos # (Auto) 0.0 Baso # (Auto) 0.0 WBC Differential . Diff Scan Auto diff confirmed Seg Neuts % (Manual) Band Neuts % (Manual) Lymphocytes % (Manual) Monocytes % (Manual) Myelocytes % (Man) Plasma Cell % (Manual) Abs Neuts (Manual) Differential Comment . Platelet Estimate Low L Platelet Morphology Enlarged H Polychromasia Lab - Chemistry Results 10/14/17 10/14/17 10/14/17 11:06 17:49 20:42 Sodium Potassium Chloride Carbon Dioxide Anion Gap BUN Creatinine Estimated GFR POC Glucose 124 H 111 H 156 H Random Glucose Calcium Prot Corrected Calcium Total Bilirubin AST ALT Alkaline Phosphatase Total Protein Albumin 10/14/17 10/15/17 10/15/17 23:42 04:41 11:40 Sodium 147 H Potassium 4.5 Chloride 109 H Carbon Dioxide 31.1 Anion Gap 7 BUN 68 H Creatinine 0.94 Estimated GFR 77 L POC Glucose 139 H 114 H Random Glucose 138 H Calcium 6.9 L* Prot Corrected Calcium 8.3 L Total Bilirubin 5.2 H AST 125 H ALT 199 H Alkaline Phosphatase 183 H Total Protein 4.5 L D Albumin 1.5 L 10/15/17 10/15/17 10/16/17 16:29 23:53 04:31 Sodium Potassium Chloride Carbon Dioxide Anion Gap BUN Creatinine Estimated GFR POC Glucose 120 H 131 H 150 H Random Glucose Calcium Prot Corrected Calcium Total Bilirubin AST ALT Alkaline Phosphatase Total Protein Albumin 10/16/17 10/16/17 06:11 07:27 Sodium 149 H Potassium 5.1 Chloride 113 H Carbon Dioxide 29.3 Anion Gap 7 BUN 65 H Creatinine 0.91 Estimated GFR 80 L POC Glucose 168 H Random Glucose 135 H Calcium 7.1 L* Prot Corrected Calcium 8.3 L Total Bilirubin 5.5 H AST 113 H ALT 172 H Alkaline Phosphatase 158 H Total Protein 4.9 L Albumin 1.5 L Imaging: ITS Impressions Cervical Spine CT 10/03/17 18:35 CONCLUSION: 1. No evidence of compression deformity, fracture, or spondylolisthesis. 2. Advanced hypertrophic degenerative changes in the facet joints, more severe on the right. CT A/P 10/03 CONCLUSION: 1. Bilateral pleural effusions, right greater than left. 2. Nonobstructing 4 mm stone in the right renal collecting system. 3. 3.7 cm infrarenal abdominal aortic aneurysm. 4. Small fat-containing left inguinal hernia. Chest CT 10/03/17 18:38 CONCLUSION: 1. Large right and small left pleural effusion. 2. No fracture seen. No evidence of pneumothorax. Liver Ultrasound 10/04/17 00:00 CONCLUSION: 1. No evidence of gallstones or biliary tract obstruction. 2. There is a cyst along the upper pole the right kidney measuring 3 cm. 3. Bilateral pleural effusions. Head CT 10/06/17 00:00 CONCLUSION: 1. Stable evaluation the brain. 2. No evidence of acute infarct, hemorrhage, mass or edema. Head MRI 10/09/17 00:00 CONCLUSION: 1. No acute infarct, acute hemorrhage, midline shift or extra-axial fluid collections. 2. Mild cerebral atrophy. 3. 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 4. Minimal small vessel ischemic changes within the periventricular and subcortical white matter bilaterally. Chest X-Ray 10/16/17 00:00 CONCLUSION: 1. Increasing consolidation throughout the left lung. 2. Moderate left pleural effusion. 3. Nasogastric tube with tip in the mid to distal esophagus. This should be advanced. Physical Exam: GENERAL: On the vent, not in respiratory distress. Sedated SKIN: Cool and dry. Has erythematous maculopapular rash in his trunk, looks worse. Has some purpura in BUE. Has cyanosis both feet, cold. HEENT: Head atraumatic. Pale sclera. His reactive to light. NECK: Trachea midline. Supple and not tender, no meningeal sign. RIJ central line looks ok CARDIOVASCULAR: Regular rate and rhythm. No murmurs, rubs or gallops heard RESPIRATORY: Coarse breath sounds. Decreased breath sounds at the bases. No rales, wheezing or rhonchi ABDOMEN: Soft, no reaction to palpation. Bowel sounds present and normoactive. No organomegaly. EXTREMITIES: Edema at all extremities. Both hands are warm, edematous. Feet are cold with cyanosis both soles. NEUROLOGICAL: Eyes open, not following commands. No Babinski, no ankle clonus PSYCHIATRIC: Unable to assess LINE: No evidence of infection : Has alvarez in place, urine looks clear. Genitalia edematous Assessment and Plan - Plan Impression Fevers started 10/10, better - has been on Vancomycin and Zosyn since 10/03 - sputum with NF - has line placed 8/25 - Bilirubin worsening - CXR with effusions; transudative - has alvarez. Urine culture has many yeast. - ?new infection - ?drug fever Respiratory failure, CHF UT Elevated LFT, ?due to shock, ?hepatic congestion Renal insufficiency, due to shock Julia UTI. Rash Cold and cyanosis both feet Recommendation Continue Levaquin Change micafungin to Diflucan Repeat Ua and C/S Follow new C/S Monitor rash Follow temps Monitor progress D/W RN
[2017-10-16] MEDS: fentaNYL 10 mcg/mL Premix Drip 2,500 MCG/250 ML BAG IV.SIG PRN ×2 (10:02→21:05)
[2017-10-16] MEDS: Levofloxacin 500 mg Premix Inj 500 MG/100 ML PIGGYBACK IV.SIG SCH (10:30)
[2017-10-16] MEDS: Fluconazole 100 MG Tablet PO SCH (10:31)
--- NOTE | 2017-10-16 11:10 | P.PNPAL ---
Reason for Visit Reason for visit: a. To assist with evaluation and management of symptoms including: dyspnea, pain, confusion. b. To assist medical decision maker(s) with: better understanding of current medical conditions; weighing benefits/burdens of medical treatment options; making medical treatment decisions. Subjective Subjective/Interval History: This is an elderly male patient who presented to [facility] on 10/03/2017 as a Mario Schmidt after he was found in his apartment, unresponsive. He was subsequently admitted to the intensive care unit with multi organ failure, overall prognosis appeared poor. Overnight on 10/06/2017 patient developed worsening hypoxia with periods of apnea requiring intubation. Dual visit with Ca Nieves, Palliative APPLICATION ARCHITECT, for symptom management and clarification of medical treatment goals. Clinical data: * T-max overnight 99.8 * WBC: 7.9, hemoglobin 14.1, hemoglobin 43.8, platelets 42, neutrophils 92.6% * Sodium: 149, potassium 5.1, chloride 113, carbon dioxide 29.3, glucose 135, calcium 7.1, prot corrected calcium 8.3 * BUN: 65, creatinine 0.91, GFR 80 * Total bilirubin: 5.5, AST 113, ALT 172, alkaline phosphatase 158 * Total protein: 4.9, albumin 1.5 * Sputum culture from 10/12/17-negative * Blood culture from 10/12/17-negative * Urine culture from 10/12/17-positive sign Julai guilliermondi * EEG on 10/12/17 consistent with significant encephalopathy. Patient remains intubated on mechanical ventilation and sedated with fentanyl drip status post bronchoscopy yesterday 10/15/17. Bronchial culture from 10/15/17- negative. Follow-up chest x-ray this morning 10/16/17 showing increasing consolidation throughout the left lung. Cardiomegaly. Moderate left pleural effusion. Distal half of feet are cold, purplish in color and mottled. Nursing reports + Doppler bilaterally Infectious disease continues to follow. Julia UTI. Following clinically; repeat cultures. Patient remains on Levaquin; micafungin was discontinued and the patient was started on Diflucan. Gastroenterology also following. Patient tolerating Glucerna via OGT at 50cc/ hour which is probably patient's goal rate. Monitoring labs for any acute changes. Patient remains critically ill with a poor prognosis. Spoke with Madina Acevedo, Patient's friend and HCP, via telephone. Medical update was provided; discussed patient prognosis as well. Madina verbalizes her understanding the patient is "not getting better." We discussed the process of cardiopulmonary resuscitation at length. Based on what the patient would want in this situation, she requests CODE STATUS be changed to ALTERNATE CODE-INTUBATION ONLY. She states the patient would never consent to trach/PEG if he was faced with that decision. Ms. Acevedo is currently out of town but would like to meet with Palliative care on 10/18/17 to discuss/consider compassionate withdrawal of artificial life support. Advance Directives Documented care wishes:: No known documented care wishes were completed. Significant change in goals:: CODE STATUS changed to ALTERNATE CODE-INTUBATION ONLY. HCP states the patient would never consent to trach/PEG. Considering compassionate withdrawal of artificial life support when appropriate. Objective Vital Signs: Vital Signs 10/15/17 10:26 10/15/17 10:38 10/15/17 10:39 Temperature Pulse Rate 100 H 101 H Respiratory Rate 18 24 Blood Pressure 100/64 105/68 Pulse Oximetry 99 96 96 10/15/17 10:40 10/15/17 10:41 10/15/17 10:42 Temperature Pulse Rate 101 H 101 H 102 H Respiratory Rate 21 19 19 Blood Pressure 109/68 108/68 107/67 Pulse Oximetry 10/15/17 10:43 10/15/17 10:44 10/15/17 10:45 Temperature Pulse Rate 101 H 100 H 99 H Respiratory Rate 20 18 19 Blood Pressure 110/69 105/66 103/65 Pulse Oximetry 10/15/17 10:46 10/15/17 10:47 10/15/17 10:48 Temperature Pulse Rate 98 H 97 H 97 H Respiratory Rate 18 20 19 Blood Pressure 101/64 101/63 103/63 Pulse Oximetry 10/15/17 10:49 10/15/17 10:50 10/15/17 10:51 Temperature Pulse Rate 97 H 97 H 98 H Respiratory Rate 19 19 21 Blood Pressure 106/65 105/64 108/68 Pulse Oximetry 10/15/17 10:52 10/15/17 10:53 10/15/17 10:54 Temperature Pulse Rate 98 H 98 H 97 H Respiratory Rate 18 18 18 Blood Pressure 107/66 104/67 103/65 Pulse Oximetry 10/15/17 10:55 10/15/17 10:56 10/15/17 10:57 Temperature Pulse Rate 97 H 96 H 97 H Respiratory Rate 20 18 21 Blood Pressure 103/64 102/64 102/66 Pulse Oximetry 10/15/17 10:58 10/15/17 10:59 10/15/17 11:00 Temperature Pulse Rate 98 H 97 H 97 H Respiratory Rate 18 17 17 Blood Pressure 104/64 105/63 102/63 Pulse Oximetry 10/15/17 11:01 10/15/17 11:02 10/15/17 12:00 Temperature Pulse Rate 96 H 96 H 91 H Respiratory Rate 17 17 Blood Pressure 101/60 100/61 Pulse Oximetry 10/15/17 12:39 10/15/17 12:41 10/15/17 13:38 Temperature 98.8 F Pulse Rate 104 H 91 H Respiratory Rate 23 16 16 Blood Pressure 103/61 Pulse Oximetry 97 97 10/15/17 13:39 10/15/17 13:40 10/15/17 13:41 Temperature Pulse Rate 92 H 95 H 98 H Respiratory Rate 23 Blood Pressure 103/62 112/74 137/72 Pulse Oximetry 97 10/15/17 13:42 10/15/17 13:43 10/15/17 13:44 Temperature Pulse Rate 107 H 105 H 104 H Respiratory Rate 16 15 Blood Pressure 112/70 111/74 108/69 Pulse Oximetry 97 97 97 10/15/17 13:45 10/15/17 13:46 10/15/17 13:47 Temperature Pulse Rate 101 H 100 H 97 H Respiratory Rate 15 15 15 Blood Pressure 107/68 107/68 107/65 Pulse Oximetry 97 97 97 10/15/17 13:48 10/15/17 13:49 10/15/17 13:50 Temperature Pulse Rate 96 H 94 H 92 H Respiratory Rate 15 15 16 Blood Pressure 105/63 103/63 103/63 Pulse Oximetry 97 97 98 10/15/17 13:51 10/15/17 13:52 10/15/17 13:53 Temperature Pulse Rate 92 H 91 H 90 Respiratory Rate 16 16 16 Blood Pressure 102/61 102/59 L 101/60 Pulse Oximetry 97 97 98 10/15/17 13:54 10/15/17 13:55 10/15/17 13:56 Temperature Pulse Rate 92 H 93 H 93 H Respiratory Rate 16 22 15 Blood Pressure 104/64 106/62 105/63 Pulse Oximetry 97 97 97 10/15/17 13:57 10/15/17 13:58 10/15/17 13:59 Temperature Pulse Rate 93 H 91 H 91 H Respiratory Rate 15 16 16 Blood Pressure 102/63 100/61 102/62 Pulse Oximetry 97 97 97 10/15/17 14:00 10/15/17 14:01 10/15/17 14:02 Temperature Pulse Rate 91 H 91 H 91 H Respiratory Rate 16 16 16 Blood Pressure 102/60 103/59 L 100/60 Pulse Oximetry 97 97 97 10/15/17 16:00 10/15/17 16:26 10/15/17 16:27 Temperature Pulse Rate 98 H 90 90 Respiratory Rate 16 15 Blood Pressure 98/58 L 99/58 L Pulse Oximetry 97 97 10/15/17 16:28 10/15/17 16:29 10/15/17 16:30 Temperature Pulse Rate 91 H 96 H 100 H Respiratory Rate 20 27 H 30 H Blood Pressure 100/62 107/69 115/79 Pulse Oximetry 97 95 93 L 10/15/17 16:31 10/15/17 16:32 10/15/17 16:33 Temperature Pulse Rate 103 H 102 H 101 H Respiratory Rate 15 15 15 Blood Pressure 108/66 109/75 107/73 Pulse Oximetry 97 97 97 10/15/17 16:34 10/15/17 16:35 10/15/17 16:36 Temperature Pulse Rate 102 H 101 H 100 H Respiratory Rate 15 16 17 Blood Pressure 109/71 109/69 108/70 Pulse Oximetry 97 97 97 10/15/17 16:37 10/15/17 16:39 10/15/17 16:40 Temperature Pulse Rate 102 H 106 H 106 H Respiratory Rate 30 H 23 16 Blood Pressure 111/73 130/85 110/69 Pulse Oximetry 98 97 97 10/15/17 16:41 10/15/17 16:42 10/15/17 16:43 Temperature Pulse Rate 104 H 104 H 104 H Respiratory Rate 17 18 25 H Blood Pressure 111/71 112/72 115/76 Pulse Oximetry 97 97 97 10/15/17 16:44 10/15/17 16:45 10/15/17 16:46 Temperature Pulse Rate 106 H 105 H 104 H Respiratory Rate 18 15 25 H Blood Pressure 119/73 117/69 117/74 Pulse Oximetry 96 96 96 10/15/17 16:47 10/15/17 16:48 10/15/17 16:49 Temperature Pulse Rate 105 H 104 H 103 H Respiratory Rate 17 16 18 Blood Pressure 117/74 114/72 116/71 Pulse Oximetry 97 97 97 10/15/17 16:50 10/15/17 17:00 10/15/17 17:57 Temperature Pulse Rate 103 H 104 H 95 H Respiratory Rate 23 16 Blood Pressure 112/69 Pulse Oximetry 96 97 10/15/17 18:00 10/15/17 19:40 10/15/17 20:00 Temperature 99.6 F 99.8 F H Pulse Rate 94 H 101 H Respiratory Rate 15 15 19 Blood Pressure 120/65 Pulse Oximetry 96 98 99 10/15/17 22:00 10/15/17 23:22 10/16/17 00:00 Temperature 99.3 F Pulse Rate 90 93 H 90 Respiratory Rate 16 15 Blood Pressure 96/56 L Pulse Oximetry 99 10/16/17 02:00 10/16/17 03:12 10/16/17 04:00 Temperature 99.0 F Pulse Rate 97 H 108 H 109 H Respiratory Rate 21 16 Blood Pressure 111/75 Pulse Oximetry 100 10/16/17 04:03 10/16/17 06:00 10/16/17 08:00 Temperature 99.6 F Pulse Rate 103 H 109 H Respiratory Rate 21 16 Blood Pressure 111/75 Pulse Oximetry 99 100 10/16/17 09:07 Temperature Pulse Rate 111 H Respiratory Rate 19 Blood Pressure Pulse Oximetry 96 Intake & Output 10/15/17 10/16/17 10/16/17 18:59 06:59 18:59 Intake Total 1652 / 1652 1434 / 1434 Output Total 825 / 825 2400 / 2400 Balance 827 / 827 -966 / -966 Weight 75.5 kg Intake: IV 650 / 650 250 / 250 D5W Inj 1,000 ML @ 50 mls/hr IV 300 / 300 .CONT .Q20H JIGNA Rx#:[id number] Mycamine Inj 100 MG In NS Inj 100 / 100 100 ML @ 100 mls/hr IV.SIG Q24H JIGNA Rx#:[id number] fentaNYL 10 mcg/mL Premix Drip 250 / 250 250 / 250 2,500 mcg In 250 ml @ 50 MCG/HR 5 mls/hr IV.SIG TITRATE PRN Rx #:[id number] Oral 0 / 0 Tube Feeding 502 / 502 584 / 584 Tube Irrigant 100 / 100 Water Bolus Amount 500 / 500 500 / 500 Output: Pleural Fluid 1500 / 1500 Urine Amount (Catheter) 825 / 825 900 / 900 Indwelling Urethral Catheter 825 / 825 900 / 900 Other: Date of Last Bowel Movement 10/14/17 10/14/17 10/15/17 # Bowel Movements 1 # Incontinent Bowel Movements 1 . Physical Exam: CONSTITUTIONAL/GENERAL: This is a frail, elderly male patient intubated and sedated on mechanical vent TUBES/LINES/DRAINS: PIV, Alberto catheter; ETT SKIN: Abrasions and bruising on upper and lower extremities bilaterally. Abrasions on scalp. Not diaphoretic. Jaundice. HEAD: Atraumatic. Normocephalic. EYES: Pupils equal and round. + Scleral icterus no injection or drainage. Fundi not examined. ENT: Nose without bleeding or purulent drainage. Dry mucous membranes. Poor dentition NECK: Trachea midline. Supple, nontender. No palpable thyroid enlargement or nodularity. CARDIOVASCULAR: Regular rate and rhythm without murmurs, gallops, or rubs. No JVD. RESPIRATORY/CHEST: Intubated on mechanical vent. Breath sounds diminished bilaterally. GASTROINTESTINAL: Abdomen soft, non-tender, nondistended. No hepato-splenomegaly , or palpable masses. No guarding. Bowel sounds hypoactive GENITOURINARY: Without palpable bladder distension. Alberto catheter draining fern colored urine MUSCULOSKELETAL: Feet are cold, purplish in color and mottled bilaterally. 2+ peripheral pitting edema. Muscle wasting in all extremities LYMPHATICS: No palpable cervical or supraclavicular adenopathy. NEUROLOGICAL: Moves upper extremities spontaneously. Grimaces to pain. Does not respond to questions or follow commands. PSYCHIATRIC: No obvious anxiety/depression. No apparent hallucinations or other psychotic thought process. Diagnostic Tests Laboratory: Laboratory Results - last 72 hr 10/12/17 10/13/17 10/13/17 20:10 04:05 12:39 WBC RBC Hgb Hct MCV MCH MCHC RDW Plt Count MPV Prelim Diff (Auto) Neut % (Auto) Lymph % (Auto) [place] % (Auto) Eos % (Auto) Baso % (Auto) Neut # (Auto) Lymph # (Auto) [place] # (Auto) Eos # (Auto) Baso # (Auto) WBC Differential . Diff Scan Auto diff confirmed Seg Neuts % (Manual) Band Neuts % (Manual) Lymphocytes % (Manual) Monocytes % (Manual) Myelocytes % (Man) Plasma Cell % (Manual) Abs Neuts (Manual) Differential Comment Platelet Estimate Low L Platelet Morphology Normal Polychromasia Sodium Potassium Chloride Carbon Dioxide Anion Gap BUN Creatinine Estimated GFR POC Glucose 203 H Random Glucose Calcium Prot Corrected Calcium Total Bilirubin AST ALT Alkaline Phosphatase Total Protein Albumin Urine Color Fern Urine Clarity Cloudy H Urine pH 5.0 Ur Specific Pet[place] 1.024 Urine Protein 30 H Urine Glucose (UA) Negative Urine Ketones Negative Urine Occult Blood Small H Urine Nitrate Negative Urine Bilirubin Small H Urine Ictotest Positive H Urine Urobilinogen 2.0 H Ur Leukocyte Esterase Negative Urine RBC 13 H Urine WBC 1 Amorphous Sediment Rare H Urine Bacteria Rare H Urine Yeast Many H Micro UA Comment Culture indicated Urine Culture Comments Culture indicated 10/13/17 10/13/17 10/14/17 18:55 23:38 04:25 WBC 15.2 H RBC 4.55 Hgb 14.2 Hct 43.4 MCV 95.6 MCH 31.1 MCHC 32.6 RDW 17.5 H Plt Count 86 L MPV 10.0 Prelim Diff (Auto) Slide review pending Neut % (Auto) 92.5 H Lymph % (Auto) 2.4 L [place] % (Auto) 5.0 Eos % (Auto) 0.0 Baso % (Auto) 0.1 Neut # (Auto) 14.1 H Lymph # (Auto) 0.4 L [place] # (Auto) 0.8 Eos # (Auto) 0.0 Baso # (Auto) 0.0 WBC Differential Manual diff final Diff Scan Seg Neuts % (Manual) 87 H Band Neuts % (Manual) 8 H Lymphocytes % (Manual) 1 L Monocytes % (Manual) 3 Myelocytes % (Man) 1 H Plasma Cell % (Manual) Abs Neuts (Manual) 14.6 H Differential Comment . Platelet Estimate Low L Platelet Morphology Enlarged H Polychromasia 2.2 H Sodium Potassium Chloride Carbon Dioxide Anion Gap BUN Creatinine Estimated GFR POC Glucose 176 H 138 H Random Glucose Calcium Prot Corrected Calcium Total Bilirubin AST ALT Alkaline Phosphatase Total Protein Albumin Urine Color Urine Clarity Urine pH Ur Specific [place] Urine Protein Urine Glucose (UA) Urine Ketones Urine Occult Blood Urine Nitrate Urine Bilirubin Urine Ictotest Urine Urobilinogen Ur Leukocyte Esterase Urine RBC Urine WBC Amorphous Sediment Urine Bacteria Urine Yeast Micro UA Comment Urine Culture Comments 10/14/17 10/14/17 10/14/17 04:25 06:19 11:06 WBC RBC Hgb Hct MCV MCH MCHC RDW Plt Count MPV Prelim Diff (Auto) Neut % (Auto) Lymph % (Auto) [place] % (Auto) Eos % (Auto) Baso % (Auto) Neut # (Auto) Lymph # (Auto) [place] # (Auto) Eos # (Auto) Baso # (Auto) WBC Differential Diff Scan Seg Neuts % (Manual) Band Neuts % (Manual) Lymphocytes % (Manual) Monocytes % (Manual) Myelocytes % (Man) Plasma Cell % (Manual) Abs Neuts (Manual) Differential Comment Platelet Estimate Platelet Morphology Polychromasia Sodium 147 H Potassium 4.8 Chloride 108 H Carbon Dioxide 29.5 Anion Gap 10 BUN 78 H Creatinine 1.27 Estimated GFR 54 L POC Glucose 128 H 124 H Random Glucose 112 H Calcium 7.1 L* Prot Corrected Calcium 8.2 L Total Bilirubin 6.1 H AST 149 H ALT 251 H Alkaline Phosphatase 168 H Total Protein 5.1 L Albumin 1.7 L Urine Color Urine Clarity Urine pH Ur Specific [place] Urine Protein Urine Glucose (UA) Urine Ketones Urine Occult Blood Urine Nitrate Urine Bilirubin Urine Ictotest Urine Urobilinogen Ur Leukocyte Esterase Urine RBC Urine WBC Amorphous Sediment Urine Bacteria Urine Yeast Micro UA Comment Urine Culture Comments 10/14/17 10/14/17 10/14/17 17:49 20:42 23:42 WBC RBC Hgb Hct MCV MCH MCHC RDW Plt Count MPV Prelim Diff (Auto) Neut % (Auto) Lymph % (Auto) [place] % (Auto) Eos % (Auto) Baso % (Auto) Neut # (Auto) Lymph # (Auto) [place] # (Auto) Eos # (Auto) Baso # (Auto) WBC Differential Diff Scan Seg Neuts % (Manual) Band Neuts % (Manual) Lymphocytes % (Manual) Monocytes % (Manual) Myelocytes % (Man) Plasma Cell % (Manual) Abs Neuts (Manual) Differential Comment Platelet Estimate Platelet Morphology Polychromasia Sodium Potassium Chloride Carbon Dioxide Anion Gap BUN Creatinine Estimated GFR POC Glucose 111 H 156 H 139 H Random Glucose Calcium Prot Corrected Calcium Total Bilirubin AST ALT Alkaline Phosphatase Total Protein Albumin Urine Color Urine Clarity Urine pH Ur Specific [place] Urine Protein Urine Glucose (UA) Urine Ketones Urine Occult Blood Urine Nitrate Urine Bilirubin Urine Ictotest Urine Urobilinogen Ur Leukocyte Esterase Urine RBC Urine WBC Amorphous Sediment Urine Bacteria Urine Yeast Micro UA Comment Urine Culture Comments 10/15/17 10/15/17 10/15/17 04:41 04:41 08:43 WBC 13.7 H 14.0 H RBC 4.30 L 4.49 L Hgb 13.3 13.7 Hct 41.5 42.9 MCV 96.4 95.6 MCH 30.9 30.6 MCHC 32.1 32.1 RDW 17.6 H 17.6 H Plt Count 38 L D 40 L MPV 11.7 H 11.5 H Prelim Diff (Auto) Manual diff required Slide review pending Neut % (Auto) 93.8 H Lymph % (Auto) 2.2 L [place] % (Auto) 3.0 Eos % (Auto) 0.0 Baso % (Auto) 1.0 Neut # (Auto) 13.1 H Lymph # (Auto) 0.3 L [place] # (Auto) 0.4 Eos # (Auto) 0.0 Baso # (Auto) 0.1 WBC Differential Manual diff final . Diff Scan Auto diff confirmed Seg Neuts % (Manual) 83 H Band Neuts % (Manual) 11 H Lymphocytes % (Manual) 2 L Monocytes % (Manual) 3 Myelocytes % (Man) Plasma Cell % (Manual) 1 H Abs Neuts (Manual) 12.9 H Differential Comment . . Platelet Estimate Low L Low L Platelet Morphology Enlarged H Normal Polychromasia Sodium 147 H Potassium 4.5 Chloride 109 H Carbon Dioxide 31.1 Anion Gap 7 BUN 68 H Creatinine 0.94 Estimated GFR 77 L POC Glucose Random Glucose 138 H Calcium 6.9 L* Prot Corrected Calcium 8.3 L Total Bilirubin 5.2 H AST 125 H ALT 199 H Alkaline Phosphatase 183 H Total Protein 4.5 L D Albumin 1.5 L Urine Color Urine Clarity Urine pH Ur Specific [place] Urine Protein Urine Glucose (UA) Urine Ketones Urine Occult Blood Urine Nitrate Urine Bilirubin Urine Ictotest Urine Urobilinogen Ur Leukocyte Esterase Urine RBC Urine WBC Amorphous Sediment Urine Bacteria Urine Yeast Micro UA Comment Urine Culture Comments 10/15/17 10/15/17 10/15/17 11:40 16:29 23:53 WBC RBC Hgb Hct MCV MCH MCHC RDW Plt Count MPV Prelim Diff (Auto) Neut % (Auto) Lymph % (Auto) [place] % (Auto) Eos % (Auto) Baso % (Auto) Neut # (Auto) Lymph # (Auto) [place] # (Auto) Eos # (Auto) Baso # (Auto) WBC Differential Diff Scan Seg Neuts % (Manual) Band Neuts % (Manual) Lymphocytes % (Manual) Monocytes % (Manual) Myelocytes % (Man) Plasma Cell % (Manual) Abs Neuts (Manual) Differential Comment Platelet Estimate Platelet Morphology Polychromasia Sodium Potassium Chloride Carbon Dioxide Anion Gap BUN Creatinine Estimated GFR POC Glucose 114 H 120 H 131 H Random Glucose Calcium Prot Corrected Calcium Total Bilirubin AST ALT Alkaline Phosphatase Total Protein Albumin Urine Color Urine Clarity Urine pH Ur Specific [place] Urine Protein Urine Glucose (UA) Urine Ketones Urine Occult Blood Urine Nitrate Urine Bilirubin Urine Ictotest Urine Urobilinogen Ur Leukocyte Esterase Urine RBC Urine WBC Amorphous Sediment Urine Bacteria Urine Yeast Micro UA Comment Urine Culture Comments 10/16/17 10/16/17 10/16/17 04:31 06:11 07:27 WBC 7.9 RBC 4.54 Hgb 14.1 Hct 43.8 MCV 96.4 MCH 31.0 MCHC 32.1 RDW 18.3 H Plt Count 42 L MPV 11.8 H Prelim Diff (Auto) Slide review pending Neut % (Auto) 92.6 H Lymph % (Auto) 3.2 L [place] % (Auto) 3.9 Eos % (Auto) 0.1 Baso % (Auto) 0.2 Neut # (Auto) 7.4 Lymph # (Auto) 0.3 L [place] # (Auto) 0.3 Eos # (Auto) 0.0 Baso # (Auto) 0.0 WBC Differential . Diff Scan Auto diff confirmed Seg Neuts % (Manual) Band Neuts % (Manual) Lymphocytes % (Manual) Monocytes % (Manual) Myelocytes % (Man) Plasma Cell % (Manual) Abs Neuts (Manual) Differential Comment . Platelet Estimate Low L Platelet Morphology Enlarged H Polychromasia Sodium Potassium Chloride Carbon Dioxide Anion Gap BUN Creatinine Estimated GFR POC Glucose 150 H 168 H Random Glucose Calcium Prot Corrected Calcium Total Bilirubin AST ALT Alkaline Phosphatase Total Protein Albumin Urine Color Urine Clarity Urine pH Ur Specific [place] Urine Protein Urine Glucose (UA) Urine Ketones Urine Occult Blood Urine Nitrate Urine Bilirubin Urine Ictotest Urine Urobilinogen Ur Leukocyte Esterase Urine RBC Urine WBC Amorphous Sediment Urine Bacteria Urine Yeast Micro UA Comment Urine Culture Comments 10/16/17 07:27 WBC RBC Hgb Hct MCV MCH MCHC RDW Plt Count MPV Prelim Diff (Auto) Neut % (Auto) Lymph % (Auto) [place] % (Auto) Eos % (Auto) Baso % (Auto) Neut # (Auto) Lymph # (Auto) [place] # (Auto) Eos # (Auto) Baso # (Auto) WBC Differential Diff Scan Seg Neuts % (Manual) Band Neuts % (Manual) Lymphocytes % (Manual) Monocytes % (Manual) Myelocytes % (Man) Plasma Cell % (Manual) Abs Neuts (Manual) Differential Comment Platelet Estimate Platelet Morphology Polychromasia Sodium 149 H Potassium 5.1 Chloride 113 H Carbon Dioxide 29.3 Anion Gap 7 BUN 65 H Creatinine 0.91 Estimated GFR 80 L POC Glucose Random Glucose 135 H Calcium 7.1 L* Prot Corrected Calcium 8.3 L Total Bilirubin 5.5 H AST 113 H ALT 172 H Alkaline Phosphatase 158 H Total Protein 4.9 L Albumin 1.5 L Urine Color Urine Clarity Urine pH Ur Specific [place] Urine Protein Urine Glucose (UA) Urine Ketones Urine Occult Blood Urine Nitrate Urine Bilirubin Urine Ictotest Urine Urobilinogen Ur Leukocyte Esterase Urine RBC Urine WBC Amorphous Sediment Urine Bacteria Urine Yeast Micro UA Comment Urine Culture Comments Result Diagrams: 10/16/17 07:27 10/16/17 07:27 Microbiology: Microbiology 10/15/17 10:21 Gram Stain - Final Bronchial - Left Lower Lobe 10/12/17 20:10 Urine Culture - Final Clean Catch Urine Julia guilliermondii 10/12/17 09:25 Aerobic Blood Culture - Preliminary Blood - Peripheral No growth in 3 days Anaerobic Blood Culture - Final QNS - See aerobic report. 10/12/17 09:31 Aerobic Blood Culture - Preliminary Blood - Peripheral No growth in 3 days Anaerobic Blood Culture - Final QNS - See aerobic report. 10/12/17 20:10 Gram Stain - Final Sputum - Endotracheal Sputum Culture - Final Heavy growth normal respiratory lesli Imaging: Elbow X-Ray 10/03/17 18:31 CONCLUSION: There is discontinuity of the tip of a small olecranon spur without soft tissue swelling. Cannot exclude a fracture. Recommend correlation with clinical exam for point tenderness in this area. Hip X-Ray 10/03/17 18:31 CONCLUSION: No fracture seen. Lumbar Spine X-Ray 10/03/17 18:31 CONCLUSION: 60% anterior compression fracture of L2. No retropulsed fragments seen. Cervical Spine CT 10/03/17 18:35 CONCLUSION: 1. No evidence of compression deformity, fracture, or spondylolisthesis. 2. Advanced hypertrophic degenerative changes in the facet joints, more severe on the right. Abdomen/Pelvis CT 10/03/17 18:38 CONCLUSION: 1. Bilateral pleural effusions, right greater than left. 2. Nonobstructing 4 mm stone in the right renal collecting system. 3. 3.7 cm infrarenal abdominal aortic aneurysm. 4. Small fat-containing left inguinal hernia. Chest CT 10/03/17 18:38 CONCLUSION: 1. Large right and small left pleural effusion. 2. No fracture seen. No evidence of pneumothorax. Liver Ultrasound 10/04/17 00:00 CONCLUSION: 1. No evidence of gallstones or biliary tract obstruction. 2. There is a cyst along the upper pole the right kidney measuring 3 cm. 3. Bilateral pleural effusions. Head CT 10/06/17 00:00 CONCLUSION: 1. Stable evaluation the brain. 2. No evidence of acute infarct, hemorrhage, mass or edema. Head MRI 10/09/17 00:00 CONCLUSION: 1. No acute infarct, acute hemorrhage, midline shift or extra-axial fluid collections. 2. Mild cerebral atrophy. 3. 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 4. Minimal small vessel ischemic changes within the periventricular and subcortical white matter bilaterally. Chest X-Ray 10/16/17 00:00 CONCLUSION: 1. Increasing consolidation throughout the left lung. 2. Moderate left pleural effusion. 3. Nasogastric tube with tip in the mid to distal esophagus. This should be advanced. Procedures: 10/06/17: Intubation 10/06/17: Central line placement 10/15/17: Bronchoscopy Assessment and Plan - Disease Oriented Problem List (1) Pleural effusion (2) JAVON (acute kidney injury) (3) NSTEMI (non-ST elevated myocardial infarction) (4) Electrolyte imbalance (5) Hypertension - Symptom Scale (1) Confusion 0-10 Scale: Unable to quantify (2) Dyspnea 0-10 Scale: Unable to quantify Comment: = 10/09/2017: Status post thoracentesis with 1.5L transudative fluid removed. Cultures negative. = Status post bronchoscopy yesterday 10/15/17. Bronchial culture from 10/15/17- negative. = Follow-up chest x-ray this morning 10/16/17 showing increasing consolidation throughout the left lung. Cardiomegaly. Moderate left pleural effusion. (3) Pain 0-10 Scale: Unable to quantify Comment: = Patient sedated on fentanyl drip. Multifactoral. Contributing factors anterior compression fracture of L2, infection, edema, poor circulation, invasive lines, immobility, bedbound status. Pertinent Non-Medical Issues: Psychosocial: Patient is originally from [place], [place]. He moved to [place], [place] in 1991. He was twice, twice. Patient has 2 children from his first marriage (Kayy Gould and Pablo), and one child (Paul) from his second marriage. He reportedly has had no contact with his children. His parents are . He has 5 brothers and one sister but apparently has not had any contact with him for many years. Patient graduated from high school; he had a variety of different jobs. Spiritual: Patient is unable to provide this information due to his altered mentation/confusion. Legal: Accurate in's requested, awaiting results Ethical issues impacting care: No known ethical issues impacting care at this time Important Contacts: Madina Aceevdo, friend: [phone] Prognosis: Patient is a severely debilitated 82-year-old male with multiorgan failure and severe sepsis. Patient is critically ill and at very high risk for further decompensation and . Prognosis is very poor. Code Status: Alternative Code (INTUBATION ONLY) Plan: = ALTERNATE CODE-INTUBATION ONLY = Decision making: [employer] and [employer] searches did not identify any potential family members. In accordance with the [place] statutes, it would be appropriated to proceed with patient's friend (Madina Acevedo) as the HCP decision maker. Healthcare proxy designation and acceptance form and notarized healthcare proxy of the dated were placed in the patient's chart and faxed to HIM to be scanned into the patient's EMR = GOALS REMAIN AGGRESSIVE UP TO THE POINT OF CARDIOPULMONARY RESUSCITATION = Spoke with Madina Acevedo, Patient's friend and HCP, via telephone. Medical update was provided; discussed patient prognosis as well. Madina verbalizes her understanding the patient is "not getting better." We discussed the process of cardiopulmonary resuscitation at length. Based on what the patient would want in this situation, she requests CODE STATUS be changed to ALTERNATE CODE- INTUBATION ONLY. She states the patient would never consent to trach/PEG if he was faced with that decision. Ms. Acevedo is currently out of town but would like to meet with Palliative care on 10/18/17 to discuss/consider compassionate withdrawal of artificial life support. = Symptom management: ++ Dyspnea: Patient remains intubated on mechanical vent status post bronchoscopy yesterday 10/15/17 for mucus plug. Bronchial culture, pleural fluid cultures and sputum cultures negative. Follow -up chest x-ray this morning 10/16/17 showing increasing consolidation throughout the left lung. Cardiomegaly. Moderate left pleural effusion. ++ Confusion: Acute encephalopathy likely multi-factorial. Contributing factors may include metabolic imbalance, sepsis, UTI, pain, constipation etc. Patient is sedated with fentanyl. CT of the brain on showed no evidence of acute infarct, hemorrhage, mass or edema. MRI of the brain on 10/09/2017 showed no acute infarct, acute hemorrhage, midline shift or extra-axial fluid collections. Mild cerebral atrophy. 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 Minimal small vessel ischemic changes within the periventricular and subcortical white matter bilaterally. EEG consistent with significant encephalopathy. ++ Pain:Patient sedated on fentanyl drip. Multifactoral. Contributing factors anterior compression fracture of L2, infection, edema, poor circulation, invasive lines, immobility, bedbound status. Monitor for signs and symptoms of nonverbal pain = Discussed patient with RNs, Adolfo = Palliative care will continue to follow this patient throughout his hospitalization to establish trust, assist with symptom management and clarification of medical treatment goals. Time Spent Time Periods: 9:54-11:08 Total Floor Time (mins): 74 Face to Face Time (mins): 15 >50% Time in Counseling or Coordination of Care: Yes (Review of record, pt. exam , collaboration with team, discussion with HCP)
[2017-10-17 06:30] LABS: Hematocrit 44.6 % (39.0-51.0); Hemoglobin 14.2 gm/dL (13.0-17.0); Mean Corpuscular HGB Conc 31.9 % (32.0-36.0); Mean Corpuscular Hemoglobin 30.9 pg (27.0-34.0); Mean Corpuscular Volume 97.1 fL (80.0-100.0); Mean Platelet Volume 12.3 fL (7.0-11.0); Platelet Count 58 th/mm3 (150-450); Red Blood Count 4.59 mil/mm3 (4.50-5.90); Red Cell Distribution Width 17.8 % (11.6-17.2); White Blood Count 2.6 th/mm3 (4.0-11.0)
[2017-10-17] MEDS: Insulin NovoLOG Aspart Correctional Sugar Inj SQ SCH ×3 (06:40→18:19)
[2017-10-17] MEDS: Acetaminophen 325 MG Tablet NG/OG PRN (06:54)
[2017-10-17 07:10] LABS: Albumin 1.4 g/dL (3.4-5.0); Calcium 7.3 mg/dL (8.5-10.1); Carbon Dioxide 29.9 meq/L (21.0-32.0); Phosphorus 3.1 mg/dL (2.5-4.9); Potassium 5.6 meq/L (3.5-5.1); Total Protein 5.2 g/dL (6.4-8.2)
--- NOTE | 2017-10-17 07:12 | P.PNCC ---
Subjective Subjective Remarks/Hospital Course: Patient is an elderly male with unknown past medical history who was found on the floor of his apartment with door open. Apparently neighbors checked on him and found him unresponsive on the floor. Patient was brought to the emergency department and underwent extensive workup to rule out trauma. CT of the head showed moderate to severe atrophy, CT of the chest showed moderate right-sided and small left effusion. 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 X-ray of his right elbow showed a possible olecranon spur discontinuity. Multiple lab abnormalities white count was 12.8 with 87% neutrophils platelet count 60 INR was 2.3. UA showed evidence of UTI, patient received a dose of cefepime for severe sepsis. Also his troponin was elevated at 6.8, lactic acid was 8.3 BUN 67 creatinine 2.71. Patient received 2 L normal saline boluses. Dr. Jaimes from cardiology was contacted for an STEMI. Due to poor mentation and multiorgan failure patient was deemed not a candidate for cardiac catheterization. Cannot use aspirin or heparin due to platelet count of 60,000 INR of 2.3. Other abnormal labs included transaminitis and elevated CPK. I evaluated the patient in the emergency department. He is severely encephalopathic appears critical, tachypneic but protecting airway. He is not able to say his name or mouth any words. He continues to move his head side to side but not communicative. I have added additional 2 L normal saline bolus, give 2 A of bicarb. Check ABG. Broad-spectrum antibiotics with vancomycin 1 dose and renally dosed Zosyn. Patient is very critically ill and has multiorgan failure, overall prognosis appears very poor. 10/04: This morning patient is not on any pressors. He is awake, agitated at times requiring restraints. He is saying incomprehensible words. T-max of 99.1. Urine output is minimal. 10/05: No events over the night. T-max of 98.4. Patient's mental status remains unchanged. Lethargic but easily arousable, not following any commands, saying incomprehensible words. Urine output of 525 mL's over the last 24 hours. Patient identified as Pablo Slater, 82-year-old gentleman. Still no family contact yet. 10/06: Over the night, patient developed worsening hypoxia with periods of apnea therefore he was intubated and now he is mechanically ventilated. This morning he is on no sedation, thrashing in bed, not following any commands. T-max of 99.9. Urine output is low, 200 mL's over the last 24 hours. Low blood pressure over the night noted, 1000 mL's of LR bolus given map remains borderline low normal. Morning chest x-ray reviewed, bibasilar infiltrates, right greater than left. ET tube is in good position. ROS -unobtainable due to patient's mental status SUBJECTIVE: 10/07: Low-grade temperatures overnight. Remains on norepinephrine drip at 2 mcg /min. Arousable on fentanyl drip at 100 mg an hour. No bowel movement. 10/08 Patient remains intubated and sedated with Fentanyl infusion. Afebrile. On Levophed 1 tu. Renal function is improving with Cr: 1.51 from 1.71. 10/09 No events overnight intubated and sedated with Fentanyl infusion on Levophed 2 mics. T:99.7. 10/10 Patient remains intubated and sedated with Fentanyl drip. s/p right sided thoracentesis yesterday with removal 1.5L (transudative fluid) On Levophed 2 mics. 10/11 : Remains sedated, orally intubated on mechanical ventilation. 10/12 Patient remains intubated and on Fentanyl infusion for sedation. T:101.5 last night. 10/13 Patient remains intubated and sedated, T 100.8 10/14 Patient remains intubated and sedated . Afebrile. 10/15 Patient is sedated with Fentanyl and intubated. Afebrile. 10/16 Patient remains intubated and sedated. T:99.8 last night. s/p bronch yesterday ( opacification of left hemithorax 2nd mucous plugs) CXR post bronch showed improved aeration of left lung 10/17 Patient is sedated with Fentanyl drip and intubated. Had T:102.3 this morning. Objective Vital Signs / I&O: Vital Signs 10/16/17 08:00 10/16/17 09:07 10/16/17 09:30 Temperature 99.6 F Pulse Rate 103 H 111 H Respiratory Rate 16 19 Blood Pressure 111/75 109/75 Pulse Oximetry 100 96 10/16/17 10:00 10/16/17 10:30 10/16/17 11:00 Temperature Pulse Rate 110 H 98 H 93 H Respiratory Rate 15 18 16 Blood Pressure 105/74 100/67 96/61 L Pulse Oximetry 100 100 10/16/17 11:30 10/16/17 11:50 10/16/17 12:00 Temperature 99.6 F Pulse Rate 90 104 H 104 H Respiratory Rate 16 21 19 Blood Pressure 98/60 L 102/70 Pulse Oximetry 100 96 92 L 10/16/17 12:30 10/16/17 13:00 10/16/17 13:30 Temperature Pulse Rate 108 H 110 H 99 H Respiratory Rate 20 19 16 Blood Pressure 105/68 106/72 97/62 L Pulse Oximetry 99 99 97 10/16/17 14:00 10/16/17 14:30 10/16/17 15:00 Temperature Pulse Rate 103 H 98 H 91 H Respiratory Rate 20 17 16 Blood Pressure 108/70 100/63 94/59 L Pulse Oximetry 95 97 96 10/16/17 15:16 10/16/17 15:30 10/16/17 16:00 Temperature 99.6 F Pulse Rate 92 H 90 106 H Respiratory Rate 16 16 36 H Blood Pressure 93/58 L 111/75 Pulse Oximetry 96 96 88 L 10/16/17 16:01 10/16/17 16:31 10/16/17 17:00 Temperature Pulse Rate 118 H 105 H 98 H Respiratory Rate 16 15 22 Blood Pressure 113/78 120/70 95/59 L Pulse Oximetry 95 95 95 10/16/17 17:30 10/16/17 18:00 10/16/17 18:30 Temperature Pulse Rate 127 H 113 H 117 H Respiratory Rate 15 15 15 Blood Pressure 102/69 102/56 L 94/58 L Pulse Oximetry 94 L 95 95 10/16/17 19:00 10/16/17 19:22 10/16/17 19:23 Temperature Pulse Rate 106 H 112 H Respiratory Rate 16 17 17 Blood Pressure 97/57 L Pulse Oximetry 95 95 10/16/17 19:30 10/16/17 20:00 10/16/17 20:30 Temperature 100.9 F H Pulse Rate 106 H 103 H 111 H Respiratory Rate 18 15 20 Blood Pressure 96/64 L 101/59 L 99/67 L Pulse Oximetry 96 95 94 L 10/16/17 21:00 10/16/17 21:30 10/16/17 22:00 Temperature Pulse Rate 112 H 116 H 110 H Respiratory Rate 15 15 16 Blood Pressure 87/63 L 99/65 L 100/55 L Pulse Oximetry 94 L 95 96 10/16/17 22:26 10/16/17 22:30 10/16/17 23:00 Temperature Pulse Rate 112 H 113 H Respiratory Rate 17 16 15 Blood Pressure 106/57 L 93/61 L Pulse Oximetry 97 96 96 10/16/17 23:10 10/16/17 23:30 10/17/17 00:00 Temperature 100.7 F H Pulse Rate 115 H 110 H 108 H Respiratory Rate 16 18 17 Blood Pressure 100/55 L 101/64 Pulse Oximetry 95 92 L 10/17/17 00:30 10/17/17 01:00 10/17/17 01:13 Temperature Pulse Rate 115 H 115 H Respiratory Rate 17 15 17 Blood Pressure 92/61 L 105/57 L Pulse Oximetry 90 L 95 97 10/17/17 01:30 10/17/17 02:00 10/17/17 02:30 Temperature Pulse Rate 113 H 113 H 114 H Respiratory Rate 17 18 16 Blood Pressure 107/65 100/65 86/63 L Pulse Oximetry 94 L 94 L 94 L 10/17/17 03:00 10/17/17 03:24 10/17/17 03:30 Temperature Pulse Rate 115 H 113 H 113 H Respiratory Rate 16 16 19 Blood Pressure 87/64 L 95/69 L Pulse Oximetry 92 L 93 L 10/17/17 04:00 10/17/17 04:30 10/17/17 04:36 Temperature Pulse Rate 115 H 116 H Respiratory Rate 18 16 16 Blood Pressure 105/69 106/62 Pulse Oximetry 92 L 93 L 93 L 10/17/17 05:00 10/17/17 05:30 10/17/17 06:00 Temperature Pulse Rate 115 H 123 H 120 H Respiratory Rate 17 24 15 Blood Pressure 105/66 115/79 87/62 L Pulse Oximetry 93 L 95 97 10/17/17 06:30 10/17/17 06:52 Temperature 102.3 F H Pulse Rate 122 H Respiratory Rate 17 Blood Pressure 118/66 Pulse Oximetry 96 Intake & Output 10/16/17 10/17/17 10/17/17 18:59 06:59 18:59 Intake Total 1394 / 1394 1221 / 1221 Output Total 1500 / 1500 450 / 450 Balance -106 / -106 771 / 771 Weight 76.8 kg Intake: IV 100 / 100 250 / 250 Levaquin 500 mg Premix Inj 500 100 / 100 mg In 100 ml @ 100 mls/hr IV. SIG Q48H JIGNA Rx#:[id number] fentaNYL 10 mcg/mL Premix Drip 250 / 250 2,500 mcg In 250 ml @ 50 MCG/HR 5 mls/hr IV.SIG TITRATE PRN Rx #:[id number] Oral 0 / 0 Tube Feeding 694 / 694 671 / 671 Tube Irrigant 100 / 100 Water Bolus Amount 500 / 500 300 / 300 Output: Urine Amount (Catheter) 1500 / 1500 450 / 450 Indwelling Urethral Catheter 1500 / 1500 450 / 450 Other: Date of Last Bowel Movement 10/16/17 10/15/17 # Bowel Movements 1 Result Diagrams: 10/17/17 06:17 10/17/17 06:17 Other Results: Laboratory Results - last 12 hr 10/16/17 10/17/17 23:33 06:20 POC Glucose 122 H 131 H Imaging: Elbow X-Ray 10/03/17 18:31 CONCLUSION: There is discontinuity of the tip of a small olecranon spur without soft tissue swelling. Cannot exclude a fracture. Recommend correlation with clinical exam for point tenderness in this area. Hip X-Ray 10/03/17 18:31 CONCLUSION: No fracture seen. Lumbar Spine X-Ray 10/03/17 18:31 CONCLUSION: 60% anterior compression fracture of L2. No retropulsed fragments seen. Cervical Spine CT 10/03/17 18:35 CONCLUSION: 1. No evidence of compression deformity, fracture, or spondylolisthesis. 2. Advanced hypertrophic degenerative changes in the facet joints, more severe on the right. Abdomen/Pelvis CT 10/03/17 18:38 CONCLUSION: 1. Bilateral pleural effusions, right greater than left. 2. Nonobstructing 4 mm stone in the right renal collecting system. 3. 3.7 cm infrarenal abdominal aortic aneurysm. 4. Small fat-containing left inguinal hernia. Chest CT 10/03/17 18:38 CONCLUSION: 1. Large right and small left pleural effusion. 2. No fracture seen. No evidence of pneumothorax. Liver Ultrasound 10/04/17 00:00 CONCLUSION: 1. No evidence of gallstones or biliary tract obstruction. 2. There is a cyst along the upper pole the right kidney measuring 3 cm. 3. Bilateral pleural effusions. Head CT 10/06/17 00:00 CONCLUSION: 1. Stable evaluation the brain. 2. No evidence of acute infarct, hemorrhage, mass or edema. . Head MRI 10/09/17 00:00 CONCLUSION: 1. No acute infarct, acute hemorrhage, midline shift or extra-axial fluid collections. 2. Mild cerebral atrophy. 3. 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 4. Minimal small vessel ischemic changes within the periventricular and subcortical white matter bilaterally. Chest X-Ray 10/16/17 00:00 CONCLUSION: 1. Increasing consolidation throughout the left lung. 2. Moderate left pleural effusion. 3. Nasogastric tube with tip in the mid to distal esophagus. This should be advanced. Objective Remarks: GENERAL: Elderly gentleman, poorly nourished, very deconditioned, ill-appearing , intubated HEENT: Pupils are equal and reactive. Sclerae anicteric. Neck supple without rigidity. Orally intubated. Neck veins are nondistended. No carotid bruit. CHEST: Scattered coarse breath sounds bilateral, decreased breath sounds at bases but overall improved air entry. No wheezes. CARDIOVASCULAR: Tachycardic without murmurs. ABDOMEN: Soft, nontender, nondistended. Bowel sounds are decreased. No hepatomegaly or splenomegaly appreciated. MUSCULOSKELETAL: Remains tepid. 2+ peripheral pitting edema. Pulses are present. Dusky discoloration of the plantar surface of the toes. NEUROLOGICAL: Patient is intubated, lethargic, arousable by opening eyes and withdrawing to bilateral upper and lower extremities but he does not follow any commands. Grimaces to pain. Pupils remain equal and reactive. Assessment and Plan - Assessment and Plan Plan: 1. VDRF 2. Acute encephalopathy, likely toxic metabolic -probably some degree of dementia at base, no improvement so far 3. s/p Acute MD -followed by cardiology 4. Sepsis 5. Lactic acidosis- resolved 6. Bibasilar pneumonia 7. Transaminitis -liver enzymes are slowly trending down 8. JAVON -improving 9. Hypernatremia -slowly improving 10. Thrombocytopenia, anemia 11. L2 compression deformity/acuity unknown Plan Neuro: On Fentanyl infusion for sedation. Daily sedation vacation. 10/06 CT brain: No evidence of acute infarct, hemorrhage, mass or edema. neuro is following- Dr. Benites MRI brain: No acute infarct, acute hemorrhage, midline shift or extra- axial fluid collections. Mild cerebral atrophy. 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 Minimal small vessel ischemic changes within the periventricular and subcortical white matter bilaterally. Pulm: Continue with vent support keep sats >92% Bronchodilators, ICU vent bundle. s/p right sided thoracentesis with removal 1.5L (Transudative fluid) SBT daily as ruth Bronch with BAL 10/15 showed thick mucous plugs obstructing office left main stem bronchus and LLL suctioned to clear BAL performed LLL. CXR post bronch showed much improved aeration of left lung. CV: Monitor HR and BP kep MAP>65mmHg, Lactic acid trending down 2.3 10/07 from 5.9 No aspirin or heparin due to worsening thrombocytopenia and coagulopathy No statin due to elevated liver enzymes : Monitor renal function, I/O's, electrolytes replacement as needed. Increase Free water 300ml Q6, add D5W@50ml/hr Give IV regular insulin 6u , D50, Kayexalate 30gms for K 5.6 ID: Continue Levaquin, Diflucan per ID, monitor for signs of infections ( Fever , WBC) BC, urine cx 10/03: No growth, Followup on fluid, sputum cx 10/09: NGTD 10/12 Blood, sputum cx: NGTD 10/12 Urine cx: Julia. Panculture today ( Blood, sputum, urine) GI: On Prevacid 30mg daily. Monitor LFT's, Hepatitis profile negative Liver ultrasound reviewed -no gallstones or biliary tract obstruction. On Glucerna 1.5 @ 50ml/hr GI is following re hyperbilirubinemia/elevated LFT's Heme: Monitor CBC, Coags, s/p Transfuse 1 packed leuko-reduced platelets, and 1 cryo due to worsening thrombocytopenia on 10/07 s/p Transfuse 1u FFP and 2u PLT 10/09 for thoracentesis Endo: SSI for glycemic control DVT prophylaxis with SCDs and GI prophylaxis with lansoprazole Palliative care is following plan for meeting with family to discuss possibility of transitioning to comfort care. Lines: Peripheral IV's Condition critical Prognosis poor. Time spent on critical care excluding procedures 30 minutes
[2017-10-17] MEDS: Fluconazole 100 MG Tablet PO SCH (08:02)
[2017-10-17] MEDS: Hypromellose 0.3% Opth Gel 10 GM Bottle EACH EYE SCH ×2 (08:03→21:48)
[2017-10-17 08:05] LABS: Lymphocytes 7 % (9-44); Monocytes 16 % (0-8); Plasma Cells 4 % (0-0); RBC Morphology Normal (Normal); Tallied Nucleated RBC 5 (0-0)
[2017-10-17 08:06] LABS: Toxic Granulation 2+
[2017-10-17] MEDS ORDERED: Sodium Polystyrene Sulfonate/Sorbitol Liq 15 GM/60 ML UDC PO ONE ×2 (08:14→15:44)
[2017-10-17] MEDS: fentaNYL 10 mcg/mL Premix Drip 2,500 MCG/250 ML BAG IV.SIG PRN ×2 (09:33→22:26)
[2017-10-17] MEDS: Dextrose 5% in Water Inj 1,000 ML IV.CONT SCH (09:34)
[2017-10-17] MEDS: Senna/Docusate Sodium 8.6/50 MG Tablet PO SCH ×2 (09:36→21:48)
[2017-10-17 09:55] LABS: Amorphous Sediment,Urine Rare /hpf; Bacteria,Urine Rare /hpf; Bilirubin,Urine Negative (Negative); Clarity,Urine Hazy (Clear); Color,Urine Amber (Yellw/Straw); Glucose,Urine (UA) Negative (Negative); Leukocyte Esterase,Urine Negative (Negative); Mucus,Urine Few /lpf (Occasional); Nitrite,Urine Negative (Negative); Specific Gravity,Urine 1.017 (1.002-1.035); Urobilinogen,Urine 4 or Greater mg/dL (Less than 2)
--- NOTE | 2017-10-17 13:12 | P.PNID ---
Subjective Remarks: Patient is an 82-year-old male, who was found unresponsive on the floor in his apartment. He was admitted October 03. Initial evaluation showed CT of the head with atrophy and no acute findings. CT of the chest with bilateral effusion. CT of the abdomen did not show any abscess, and it did show a compression fracture and L2. He also had an infrarenal abdominal aortic aneurysm that is about 3.7 cm. His white count then was 12,000, and his platelets were low. Urinalysis showed some very mild pyuria. He also had an elevated troponin and elevated lactic acid as well as creatinine. Patient ruled in for an MT, but cardiology felt that he is not a candidate for cardiac catheterization. He also had abnormal liver function tests. Patient was started on empiric antibiotics for sepsis and was given vancomycin and Zosyn. His blood cultures came back negative as well as a urine culture. On October 05 , he had increased respiratory distress and ended up getting intubated, and he has been on the vent since. He had a central line put in in his right IJ. Patient also was started on pressors. Since October 10, he started having fevers. Repeat blood cultures on October 09 and sputum cultures were okay. Patient also had undergone thoracenteses, and the fluid looks more transudative. He is currently off pressors. Remains on the vent. His LFTs remain elevated. He has had ultrasound of the abdomen which was okay. His chest x-ray is still showing bilateral effusions, worse on the left side but it is not worsening. Infectious disease consultation has been requested to evaluate the patient. Notes reviewed Sedated on the vent Febrile to 102 FiO2 at 40% WBC down to 2.6 New C/S sent Repeat UA better LFT still elevated but improving CXR better aeration L after bronch BP ok, not on pressors Both feet distal half cold and cyanotic Antibiotics: Levaquin Diflucan Past Medical History: Abdominal aortic aneurysm (Acute) Hypertension (Acute) History of tonsillectomy and adenoidectomy Allergies/Adverse Reactions: Allergies No Allergy Information Available Allergy (Unverified 10/03/17 18:31) ALTERED MENTAL STATUS Objective Vital Signs 10/16/17 13:30 10/16/17 14:00 10/16/17 14:30 Temperature Pulse Rate 99 H 103 H 98 H Respiratory Rate 16 20 17 Blood Pressure 97/62 L 108/70 100/63 Pulse Oximetry 97 95 97 10/16/17 15:00 10/16/17 15:16 10/16/17 15:30 Temperature Pulse Rate 91 H 92 H 90 Respiratory Rate 16 16 16 Blood Pressure 94/59 L 93/58 L Pulse Oximetry 96 96 96 10/16/17 16:00 10/16/17 16:01 10/16/17 16:31 Temperature 99.6 F Pulse Rate 106 H 118 H 105 H Respiratory Rate 36 H 16 15 Blood Pressure 111/75 113/78 120/70 Pulse Oximetry 88 L 95 95 10/16/17 17:00 10/16/17 17:30 10/16/17 18:00 Temperature Pulse Rate 98 H 127 H 113 H Respiratory Rate 22 15 15 Blood Pressure 95/59 L 102/69 102/56 L Pulse Oximetry 95 94 L 95 10/16/17 18:30 10/16/17 19:00 10/16/17 19:22 Temperature Pulse Rate 117 H 106 H Respiratory Rate 15 16 17 Blood Pressure 94/58 L 97/57 L Pulse Oximetry 95 95 95 10/16/17 19:23 10/16/17 19:30 10/16/17 20:00 Temperature 100.9 F H Pulse Rate 112 H 106 H 103 H Respiratory Rate 17 18 15 Blood Pressure 96/64 L 101/59 L Pulse Oximetry 96 95 10/16/17 20:30 10/16/17 21:00 10/16/17 21:30 Temperature Pulse Rate 111 H 112 H 116 H Respiratory Rate 20 15 15 Blood Pressure 99/67 L 87/63 L 99/65 L Pulse Oximetry 94 L 94 L 95 10/16/17 22:00 10/16/17 22:26 10/16/17 22:30 Temperature Pulse Rate 110 H 112 H Respiratory Rate 16 17 16 Blood Pressure 100/55 L 106/57 L Pulse Oximetry 96 97 96 10/16/17 23:00 10/16/17 23:10 10/16/17 23:30 Temperature Pulse Rate 113 H 115 H 110 H Respiratory Rate 15 16 18 Blood Pressure 93/61 L 100/55 L Pulse Oximetry 96 95 10/17/17 00:00 10/17/17 00:30 10/17/17 01:00 Temperature 100.7 F H Pulse Rate 108 H 115 H 115 H Respiratory Rate 17 17 15 Blood Pressure 101/64 92/61 L 105/57 L Pulse Oximetry 92 L 90 L 95 10/17/17 01:13 10/17/17 01:30 10/17/17 02:00 Temperature Pulse Rate 113 H 113 H Respiratory Rate 17 17 18 Blood Pressure 107/65 100/65 Pulse Oximetry 97 94 L 94 L 10/17/17 02:30 10/17/17 03:00 10/17/17 03:24 Temperature Pulse Rate 114 H 115 H 113 H Respiratory Rate 16 16 16 Blood Pressure 86/63 L 87/64 L Pulse Oximetry 94 L 92 L 10/17/17 03:30 10/17/17 04:00 10/17/17 04:30 Temperature Pulse Rate 113 H 115 H 116 H Respiratory Rate 19 18 16 Blood Pressure 95/69 L 105/69 106/62 Pulse Oximetry 93 L 92 L 93 L 10/17/17 04:36 10/17/17 05:00 10/17/17 05:30 Temperature Pulse Rate 115 H 123 H Respiratory Rate 16 17 24 Blood Pressure 105/66 115/79 Pulse Oximetry 93 L 93 L 95 10/17/17 06:00 10/17/17 06:30 10/17/17 06:52 Temperature 102.3 F H Pulse Rate 120 H 122 H Respiratory Rate 15 17 Blood Pressure 87/62 L 118/66 Pulse Oximetry 97 96 10/17/17 07:00 10/17/17 07:30 10/17/17 08:00 Temperature Pulse Rate 119 H 116 H 118 H Respiratory Rate 18 17 15 Blood Pressure 103/62 101/63 89/60 L Pulse Oximetry 96 96 96 10/17/17 08:05 10/17/17 08:30 10/17/17 09:00 Temperature Pulse Rate 114 H 115 H 112 H Respiratory Rate 17 17 18 Blood Pressure 106/57 L 86/64 L Pulse Oximetry 94 L 95 10/17/17 09:30 10/17/17 10:00 10/17/17 10:30 Temperature Pulse Rate 113 H 117 H 113 H Respiratory Rate 16 17 15 Blood Pressure 90/68 L 98/68 L 110/58 L Pulse Oximetry 95 97 97 10/17/17 11:00 10/17/17 11:30 10/17/17 12:00 Temperature Pulse Rate 113 H 110 H 112 H Respiratory Rate 17 17 15 Blood Pressure 94/58 L 92/59 L 113/57 L Pulse Oximetry 96 96 96 Intake & Output 10/16/17 10/17/17 10/17/17 18:59 06:59 18:59 Intake Total 1394 / 1394 1221 / 1221 250 / 250 Output Total 1500 / 1500 450 / 450 Balance -106 / -106 771 / 771 250 / 250 Weight 76.8 kg Intake: IV 100 / 100 250 / 250 250 / 250 Levaquin 500 mg Premix Inj 500 100 / 100 mg In 100 ml @ 100 mls/hr IV. SIG Q48H JIGNA Rx#:[id number] fentaNYL 10 mcg/mL Premix Drip 250 / 250 250 / 250 2,500 mcg In 250 ml @ 50 MCG/HR 5 mls/hr IV.SIG TITRATE PRN Rx #:[id number] Oral 0 / 0 Tube Feeding 694 / 694 671 / 671 Tube Irrigant 100 / 100 Water Bolus Amount 500 / 500 300 / 300 Output: Urine Amount (Catheter) 1500 / 1500 450 / 450 Indwelling Urethral Catheter 1500 / 1500 450 / 450 Other: Date of Last Bowel Movement 10/16/17 10/15/17 # Bowel Movements 1 10/15/17 10:21 Bronchial - Left Lower Lobe Gram Stain - Final 10/15/17 10:21 Bronchial - Left Lower Lobe Bronchial Culture - Final Heavy growth normal respiratory lesli 10/12/17 09:25 Blood - Peripheral Aerobic Blood Culture - Final No growth in 5 days 10/12/17 09:25 Blood - Peripheral Anaerobic Blood Culture - Final QNS - See aerobic report. 10/12/17 09:31 Blood - Peripheral Aerobic Blood Culture - Final No growth in 5 days 10/12/17 09:31 Blood - Peripheral Anaerobic Blood Culture - Final QNS - See aerobic report. 10/17/17 10:38 Blood - Peripheral Aerobic Blood Culture - Pending 10/17/17 10:38 Blood - Peripheral Anaerobic Blood Culture - Pending 10/17/17 08:09 Sputum - Endotracheal Gram Stain - Pending 10/17/17 08:09 Sputum - Endotracheal Sputum Culture - Pending 10/17/17 09:09 Blood - Peripheral Aerobic Blood Culture - Pending 10/17/17 09:09 Blood - Peripheral Anaerobic Blood Culture - Pending 10/09/17 14:40 Fluid - Pleural fluid Fungal Smear - Final No fungal elements seen 10/09/17 14:40 Fluid - Pleural fluid Fungal Culture - Preliminary No growth in 1 week 10/12/17 20:10 Clean Catch Urine Urine Culture - Final Julia guilliermondii 10/12/17 20:10 Sputum - Endotracheal Gram Stain - Final 10/12/17 20:10 Sputum - Endotracheal Sputum Culture - Final Heavy growth normal respiratory lesli Lab - Hematology Results 10/16/17 10/17/17 07:27 06:17 WBC 7.9 2.6 L D RBC 4.54 4.59 Hgb 14.1 14.2 Hct 43.8 44.6 MCV 96.4 97.1 MCH 31.0 30.9 MCHC 32.1 31.9 L RDW 18.3 H 17.8 H Plt Count 42 L 58 L D MPV 11.8 H 12.3 H Prelim Diff (Auto) Slide review pending Manual diff required Neut % (Auto) 92.6 H Lymph % (Auto) 3.2 L [place] % (Auto) 3.9 Eos % (Auto) 0.1 Baso % (Auto) 0.2 Neut # (Auto) 7.4 Lymph # (Auto) 0.3 L [place] # (Auto) 0.3 Eos # (Auto) 0.0 Baso # (Auto) 0.0 WBC Differential . Manual diff final Diff Scan Auto diff confirmed Seg Neuts % (Manual) 57 Band Neuts % (Manual) 15 H Lymphocytes % (Manual) 7 L Monocytes % (Manual) 16 H Basophils % (Manual) 1 Plasma Cell % (Manual) 4 H Abs Neuts (Manual) 1.9 Nucleated RBCs/100 WBC 5 H Differential Comment . . Toxic Granulation 2+ H Platelet Estimate Low L Low L Platelet Morphology Enlarged H Enlarged H RBC Morphology Normal Lab - Chemistry Results 10/15/17 10/15/17 10/16/17 16:29 23:53 04:31 Sodium Potassium Chloride Carbon Dioxide Anion Gap BUN Creatinine Estimated GFR POC Glucose 120 H 131 H 150 H Random Glucose Calcium Prot Corrected Calcium Phosphorus Magnesium Total Bilirubin AST ALT Alkaline Phosphatase Total Protein Albumin 10/16/17 10/16/17 10/16/17 06:11 07:27 11:13 Sodium 149 H Potassium 5.1 Chloride 113 H Carbon Dioxide 29.3 Anion Gap 7 BUN 65 H Creatinine 0.91 Estimated GFR 80 L POC Glucose 168 H 149 H Random Glucose 135 H Calcium 7.1 L* Prot Corrected Calcium 8.3 L Phosphorus Magnesium Total Bilirubin 5.5 H AST 113 H ALT 172 H Alkaline Phosphatase 158 H Total Protein 4.9 L Albumin 1.5 L 10/16/17 10/16/17 10/17/17 18:51 23:33 06:17 Sodium 150 H Potassium 5.6 H Chloride 112 H Carbon Dioxide 29.9 Anion Gap 8 BUN 74 H Creatinine 1.14 Estimated GFR 62 L POC Glucose 115 H 122 H Random Glucose 129 H Calcium 7.3 L* Prot Corrected Calcium 8.3 L Phosphorus 3.1 Magnesium 3.0 H Total Bilirubin 4.5 H AST 79 H ALT 141 H Alkaline Phosphatase 157 H Total Protein 5.2 L Albumin 1.4 L 10/17/17 10/17/17 10/17/17 06:20 07:50 11:20 Sodium Potassium Chloride Carbon Dioxide Anion Gap BUN Creatinine Estimated GFR POC Glucose 131 H 126 H 164 H Random Glucose Calcium Prot Corrected Calcium Phosphorus Magnesium Total Bilirubin AST ALT Alkaline Phosphatase Total Protein Albumin 10/17/17 12:29 Sodium Potassium Chloride Carbon Dioxide Anion Gap BUN Creatinine Estimated GFR POC Glucose 136 H Random Glucose Calcium Prot Corrected Calcium Phosphorus Magnesium Total Bilirubin AST ALT Alkaline Phosphatase Total Protein Albumin Imaging: ITS Impressions Elbow X-Ray 10/03/17 18:31 CONCLUSION: There is discontinuity of the tip of a small olecranon spur without soft tissue swelling. Cannot exclude a fracture. Recommend correlation with clinical exam for point tenderness in this area. Hip X-Ray 10/03/17 18:31 CONCLUSION: No fracture seen. Lumbar Spine X-Ray 10/03/17 18:31 CONCLUSION: 60% anterior compression fracture of L2. No retropulsed fragments seen. Cervical Spine CT 10/03/17 18:35 CONCLUSION: 1. No evidence of compression deformity, fracture, or spondylolisthesis. 2. Advanced hypertrophic degenerative changes in the facet joints, more severe on the right. Abdomen/Pelvis CT 10/03/17 18:38 CONCLUSION: 1. Bilateral pleural effusions, right greater than left. 2. Nonobstructing 4 mm stone in the right renal collecting system. 3. 3.7 cm infrarenal abdominal aortic aneurysm. 4. Small fat-containing left inguinal hernia. Chest CT 10/03/17 18:38 CONCLUSION: 1. Large right and small left pleural effusion. 2. No fracture seen. No evidence of pneumothorax. Liver Ultrasound 10/04/17 00:00 CONCLUSION: 1. No evidence of gallstones or biliary tract obstruction. 2. There is a cyst along the upper pole the right kidney measuring 3 cm. 3. Bilateral pleural effusions. Head CT 10/06/17 00:00 CONCLUSION: 1. Stable evaluation the brain. 2. No evidence of acute infarct, hemorrhage, mass or edema. . Head MRI 10/09/17 00:00 CONCLUSION: 1. No acute infarct, acute hemorrhage, midline shift or extra-axial fluid collections. 2. Mild cerebral atrophy. 3. 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 4. Minimal small vessel ischemic changes within the periventricular and subcortical white matter bilaterally. Chest X-Ray 10/16/17 00:00 CONCLUSION: 1. Increasing consolidation throughout the left lung. 2. Moderate left pleural effusion. 3. Nasogastric tube with tip in the mid to distal esophagus. This should be advanced. Physical Exam: GENERAL: On the vent, not in respiratory distress. Sedated SKIN: Cool and dry. Has erythematous maculopapular rash in his trunk, looks worse. Has some purpura in BUE. Has cyanosis both feet, cold. HEENT: Head atraumatic. Pale sclera. His reactive to light. NECK: Trachea midline. Supple and not tender, no meningeal sign. RIJ central line looks ok CARDIOVASCULAR: Regular rate and rhythm. No murmurs, rubs or gallops heard RESPIRATORY: Coarse breath sounds. Decreased breath sounds at the bases. No rales, wheezing or rhonchi ABDOMEN: Soft, no reaction to palpation. Bowel sounds present and normoactive. No organomegaly. EXTREMITIES: Edema at all extremities. Both hands are warm, edematous. Feet are cold with cyanosis both soles. NEUROLOGICAL: Eyes open, not following commands. No Babinski, no ankle clonus PSYCHIATRIC: Unable to assess LINE: No evidence of infection : Has alvarez in place, urine looks clear. Genitalia edematous Assessment and Plan - Plan Impression Fevers started 10/10, recurrent - has been on Vancomycin and Zosyn since 10/03 - sputum with NF - has line placed 10/06 - Bilirubin worsening - CXR with effusions; transudative - has alvarez. Urine culture has many yeast. - ?new infection - now becoming neutropenic Respiratory failure, CHF MT Elevated LFT, ?due to shock, ?hepatic congestion Renal insufficiency, due to shock Julia UTI. Rash Cold and cyanosis both feet Recommendation Continue Levaquin Restart Micafungin Add Azactam for more GNR coverage Short course of steroids for rash Follow temps Follow new C/S Monitor rash Monitor progress I will be off Oct 18- Other ID MD covering in my absence
[2017-10-17] MEDS: MethylPREDNISolone Sod Succinate Inj 40 MG/ML Vial IV.PUSH SCH ×2 (14:02→21:48)
[2017-10-17] MEDS: Aztreonam Inj 2 GM in Sodium Chloride 0.9% Inj 100 ML IV.SIG SCH ×2 (15:25→23:14)
--- NOTE | 2017-10-17 16:23 | P.PNPAL ---
Reason for Visit Reason for visit: a. To assist with evaluation and management of symptoms including: dyspnea, pain, confusion. b. To assist medical decision maker(s) with: better understanding of current medical conditions; weighing benefits/burdens of medical treatment options; making medical treatment decisions. Subjective Subjective/Interval History: This is an elderly male patient who presented to [place] [facility] ED on 10/03/2017 as a Mario Schmidt after he was found in his apartment, unresponsive. He was subsequently admitted to the intensive care unit with multi organ failure, overall prognosis appeared poor. Overnight on 10/06/2017 patient developed worsening hypoxia with periods of apnea requiring intubation. Follow up visit for management of dyspnea, pain and confusion. Patient remains intubated on mechanical ventilation and sedated with fentanyl drip. Follow-up chest x-ray this morning 10/16/17 showing increasing consolidation throughout the left lung. Cardiomegaly. Moderate left pleural effusion. Neurology was consulted secondary to encephalopathy. CT brain on 10/06/17 showed no evidence of acute infarct, hemorrhage, mass or edema. MRI of the brain showed no acute infarct, acute hemorrhage, and midline shift or extra-axial fluid collections. Mild cerebral atrophy. 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 Minimal small vessel ischemic changes within the periventricular and subcortical white matter bilaterally. EEG on 10/12 consistent with significant encephalopathy. No significant improvement in neurological status. Clinical data: * T-max 102.3 * WBC: 2.6, hemoglobin 14.2, hematocrit 44.6, platelets 58 * Sodium: 150, potassium 5.6, chloride 112, carbon dioxide 29.2, glucose 129, calcium 7.8, prot corrected calcium 8.3, phosphorus 3.1, magnesium 3.0 * BUN: 7.4, creatinine 1.14, GFR 62 * Total bilirubin: 4.5, AST 79, ALT 141, alkaline phosphatase 157 * Total protein: 5.2, albumin 1.4 * Sputum culture from 10/12/17-negative * Blood culture from 10/12/17-negative * Urine culture from 10/12/17-positive sign Julia guilliermondi Patient given insulin, D50 and Kayexalate for K of 5.6. Infectious disease continues to follow. Julia UTI. Patient remains on Levaquin; micafungin was discontinued and the patient was started on Diflucan. Follow-up pancultures today 10/17/17, results pending. Patient remains critically ill with a poor prognosis. Spoke with Madina Acevedo ( friend/HCP) on 10/16/17. She is out of town and will return tomorrow 10/18/17. Tentatively plans to meet with Palliative care to discuss compassionate withdrawal of artificial life support. Advance Directives Documented care wishes:: No known documented care wishes were completed. Objective Vital Signs: Vital Signs 10/16/17 16:31 10/16/17 17:00 10/16/17 17:30 Temperature Pulse Rate 105 H 98 H 127 H Respiratory Rate 15 22 15 Blood Pressure 120/70 95/59 L 102/69 Pulse Oximetry 95 95 94 L 10/16/17 18:00 10/16/17 18:30 10/16/17 19:00 Temperature Pulse Rate 113 H 117 H 106 H Respiratory Rate 15 15 16 Blood Pressure 102/56 L 94/58 L 97/57 L Pulse Oximetry 95 95 95 10/16/17 19:22 10/16/17 19:23 10/16/17 19:30 Temperature Pulse Rate 112 H 106 H Respiratory Rate 17 17 18 Blood Pressure 96/64 L Pulse Oximetry 95 96 10/16/17 20:00 10/16/17 20:30 10/16/17 21:00 Temperature 100.9 F H Pulse Rate 103 H 111 H 112 H Respiratory Rate 15 20 15 Blood Pressure 101/59 L 99/67 L 87/63 L Pulse Oximetry 95 94 L 94 L 10/16/17 21:30 10/16/17 22:00 10/16/17 22:26 Temperature Pulse Rate 116 H 110 H Respiratory Rate 15 16 17 Blood Pressure 99/65 L 100/55 L Pulse Oximetry 95 96 97 10/16/17 22:30 10/16/17 23:00 10/16/17 23:10 Temperature Pulse Rate 112 H 113 H 115 H Respiratory Rate 16 15 16 Blood Pressure 106/57 L 93/61 L Pulse Oximetry 96 96 10/16/17 23:30 10/17/17 00:00 10/17/17 00:30 Temperature 100.7 F H Pulse Rate 110 H 108 H 115 H Respiratory Rate 18 17 17 Blood Pressure 100/55 L 101/64 92/61 L Pulse Oximetry 95 92 L 90 L 10/17/17 01:00 10/17/17 01:13 10/17/17 01:30 Temperature Pulse Rate 115 H 113 H Respiratory Rate 15 17 17 Blood Pressure 105/57 L 107/65 Pulse Oximetry 95 97 94 L 10/17/17 02:00 10/17/17 02:30 10/17/17 03:00 Temperature Pulse Rate 113 H 114 H 115 H Respiratory Rate 18 16 16 Blood Pressure 100/65 86/63 L 87/64 L Pulse Oximetry 94 L 94 L 92 L 10/17/17 03:24 10/17/17 03:30 10/17/17 04:00 Temperature Pulse Rate 113 H 113 H 115 H Respiratory Rate 16 19 18 Blood Pressure 95/69 L 105/69 Pulse Oximetry 93 L 92 L 10/17/17 04:30 10/17/17 04:36 10/17/17 05:00 Temperature Pulse Rate 116 H 115 H Respiratory Rate 16 16 17 Blood Pressure 106/62 105/66 Pulse Oximetry 93 L 93 L 93 L 10/17/17 05:30 10/17/17 06:00 10/17/17 06:30 Temperature Pulse Rate 123 H 120 H 122 H Respiratory Rate 24 15 17 Blood Pressure 115/79 87/62 L 118/66 Pulse Oximetry 95 97 96 10/17/17 06:52 10/17/17 07:00 10/17/17 07:30 Temperature 102.3 F H Pulse Rate 119 H 116 H Respiratory Rate 18 17 Blood Pressure 103/62 101/63 Pulse Oximetry 96 96 10/17/17 08:00 10/17/17 08:05 10/17/17 08:30 Temperature Pulse Rate 118 H 114 H 115 H Respiratory Rate 15 17 17 Blood Pressure 89/60 L 106/57 L Pulse Oximetry 96 94 L 10/17/17 09:00 10/17/17 09:30 10/17/17 10:00 Temperature Pulse Rate 112 H 113 H 117 H Respiratory Rate 18 16 17 Blood Pressure 86/64 L 90/68 L 98/68 L Pulse Oximetry 95 95 97 10/17/17 10:30 10/17/17 11:00 10/17/17 11:30 Temperature Pulse Rate 113 H 113 H 110 H Respiratory Rate 15 17 17 Blood Pressure 110/58 L 94/58 L 92/59 L Pulse Oximetry 97 96 96 10/17/17 12:00 10/17/17 14:00 Temperature Pulse Rate 112 H 102 H Respiratory Rate 15 Blood Pressure 113/57 L Pulse Oximetry 96 Intake & Output 10/16/17 10/17/17 10/17/17 18:59 06:59 18:59 Intake Total 1394 / 1394 1221 / 1221 350 / 350 Output Total 1500 / 1500 450 / 450 Balance -106 / -106 771 / 771 350 / 350 Weight 76.8 kg Intake: IV 100 / 100 250 / 250 350 / 350 Levaquin 500 mg Premix Inj 500 100 / 100 mg In 100 ml @ 100 mls/hr IV. SIG Q48H JIGNA Rx#:[id number] Mycamine Inj 100 MG In NS Inj 100 / 100 100 ML @ 100 mls/hr IV.SIG Q24H JIGNA Rx#:[id number] fentaNYL 10 mcg/mL Premix Drip 250 / 250 250 / 250 2,500 mcg In 250 ml @ 50 MCG/HR 5 mls/hr IV.SIG TITRATE PRN Rx #:[id number] Oral 0 / 0 Tube Feeding 694 / 694 671 / 671 Tube Irrigant 100 / 100 Water Bolus Amount 500 / 500 300 / 300 Output: Urine Amount (Catheter) 1500 / 1500 450 / 450 Indwelling Urethral Catheter 1500 / 1500 450 / 450 Other: Date of Last Bowel Movement 10/16/17 10/15/17 # Bowel Movements 1 Physical Exam: CONSTITUTIONAL/GENERAL: This is a frail, elderly male patient intubated and sedated on mechanical vent TUBES/LINES/DRAINS: PIV, Alberto catheter; ETT SKIN: Abrasions and bruising on upper and lower extremities bilaterally. Abrasions on scalp. Not diaphoretic. Jaundice. HEAD: Atraumatic. Normocephalic. EYES: Pupils equal and round. + Scleral icterus no injection or drainage. Fundi not examined. ENT: Nose without bleeding or purulent drainage. Dry mucous membranes. Poor dentition NECK: Trachea midline. Supple, nontender. No palpable thyroid enlargement or nodularity. CARDIOVASCULAR: Irregularly irregular without murmurs, gallops, or rubs. No JVD. RESPIRATORY/CHEST: Intubated on mechanical vent. Breath sounds diminished bilaterally. GASTROINTESTINAL: Abdomen soft, non-tender, nondistended. No hepato-splenomegaly , or palpable masses. No guarding. Bowel sounds hypoactive GENITOURINARY: Without palpable bladder distension. Alberto catheter draining fern colored urine MUSCULOSKELETAL: Feet are cold, purplish in color and mottled bilaterally. 2+ peripheral pitting edema. Muscle wasting in all extremities LYMPHATICS: No palpable cervical or supraclavicular adenopathy. NEUROLOGICAL: Moves upper extremities spontaneously. Grimaces to pain. Does not respond to questions or follow commands. PSYCHIATRIC: No obvious anxiety/depression. No apparent hallucinations or other psychotic thought process. Diagnostic Tests Laboratory: Laboratory Results - last 72 hr 10/12/17 10/14/17 10/14/17 20:10 17:49 20:42 WBC RBC Hgb Hct MCV MCH MCHC RDW Plt Count MPV Prelim Diff (Auto) Neut % (Auto) Lymph % (Auto) [place] % (Auto) Eos % (Auto) Baso % (Auto) Neut # (Auto) Lymph # (Auto) [place] # (Auto) Eos # (Auto) Baso # (Auto) WBC Differential Diff Scan Seg Neuts % (Manual) Band Neuts % (Manual) Lymphocytes % (Manual) Monocytes % (Manual) Basophils % (Manual) Plasma Cell % (Manual) Abs Neuts (Manual) Nucleated RBCs/100 WBC Differential Comment Toxic Granulation Platelet Estimate Platelet Morphology RBC Morphology Sodium Potassium Chloride Carbon Dioxide Anion Gap BUN Creatinine Estimated GFR POC Glucose 111 H 156 H Random Glucose Calcium Prot Corrected Calcium Phosphorus Magnesium Total Bilirubin AST ALT Alkaline Phosphatase Total Protein Albumin Urine Color Fern Urine Clarity Cloudy H Urine pH 5.0 Ur Specific [place] 1.024 Urine Protein 30 H Urine Glucose (UA) Negative Urine Ketones Negative Urine Occult Blood Small H Urine Nitrate Negative Urine Bilirubin Small H Urine Ictotest Positive H Urine Urobilinogen 2.0 H Ur Leukocyte Esterase Negative Urine RBC 13 H Urine WBC 1 Amorphous Sediment Rare H Urine Bacteria Rare H Granular Casts Urine Mucus Urine Yeast Many H Micro UA Comment Culture indicated Ur Microscopic Review Urine Culture Comments Culture indicated 10/14/17 10/15/17 10/15/17 23:42 04:41 04:41 WBC 13.7 H RBC 4.30 L Hgb 13.3 Hct 41.5 MCV 96.4 MCH 30.9 MCHC 32.1 RDW 17.6 H Plt Count 38 L D MPV 11.7 H Prelim Diff (Auto) Manual diff required Neut % (Auto) Lymph % (Auto) [place] % (Auto) Eos % (Auto) Baso % (Auto) Neut # (Auto) Lymph # (Auto) [place] # (Auto) Eos # (Auto) Baso # (Auto) WBC Differential Manual diff final Diff Scan Seg Neuts % (Manual) 83 H Band Neuts % (Manual) 11 H Lymphocytes % (Manual) 2 L Monocytes % (Manual) 3 Basophils % (Manual) Plasma Cell % (Manual) 1 H Abs Neuts (Manual) 12.9 H Nucleated RBCs/100 WBC Differential Comment . Toxic Granulation Platelet Estimate Low L Platelet Morphology Enlarged H RBC Morphology Sodium 147 H Potassium 4.5 Chloride 109 H Carbon Dioxide 31.1 Anion Gap 7 BUN 68 H Creatinine 0.94 Estimated GFR 77 L POC Glucose 139 H Random Glucose 138 H Calcium 6.9 L* Prot Corrected Calcium 8.3 L Phosphorus Magnesium Total Bilirubin 5.2 H AST 125 H ALT 199 H Alkaline Phosphatase 183 H Total Protein 4.5 L D Albumin 1.5 L Urine Color Urine Clarity Urine pH Ur Specific [place] Urine Protein Urine Glucose (UA) Urine Ketones Urine Occult Blood Urine Nitrate Urine Bilirubin Urine Ictotest Urine Urobilinogen Ur Leukocyte Esterase Urine RBC Urine WBC Amorphous Sediment Urine Bacteria Granular Casts Urine Mucus Urine Yeast Micro UA Comment Ur Microscopic Review Urine Culture Comments 10/15/17 10/15/17 10/15/17 08:43 11:40 16:29 WBC 14.0 H RBC 4.49 L Hgb 13.7 Hct 42.9 MCV 95.6 MCH 30.6 MCHC 32.1 RDW 17.6 H Plt Count 40 L MPV 11.5 H Prelim Diff (Auto) Slide review pending Neut % (Auto) 93.8 H Lymph % (Auto) 2.2 L [place] % (Auto) 3.0 Eos % (Auto) 0.0 Baso % (Auto) 1.0 Neut # (Auto) 13.1 H Lymph # (Auto) 0.3 L [place] # (Auto) 0.4 Eos # (Auto) 0.0 Baso # (Auto) 0.1 WBC Differential . Diff Scan Auto diff confirmed Seg Neuts % (Manual) Band Neuts % (Manual) Lymphocytes % (Manual) Monocytes % (Manual) Basophils % (Manual) Plasma Cell % (Manual) Abs Neuts (Manual) Nucleated RBCs/100 WBC Differential Comment . Toxic Granulation Platelet Estimate Low L Platelet Morphology Normal RBC Morphology Sodium Potassium Chloride Carbon Dioxide Anion Gap BUN Creatinine Estimated GFR POC Glucose 114 H 120 H Random Glucose Calcium Prot Corrected Calcium Phosphorus Magnesium Total Bilirubin AST ALT Alkaline Phosphatase Total Protein Albumin Urine Color Urine Clarity Urine pH Ur Specific [place] Urine Protein Urine Glucose (UA) Urine Ketones Urine Occult Blood Urine Nitrate Urine Bilirubin Urine Ictotest Urine Urobilinogen Ur Leukocyte Esterase Urine RBC Urine WBC Amorphous Sediment Urine Bacteria Granular Casts Urine Mucus Urine Yeast Micro UA Comment Ur Microscopic Review Urine Culture Comments 10/15/17 10/16/17 10/16/17 23:53 04:31 06:11 WBC RBC Hgb Hct MCV MCH MCHC RDW Plt Count MPV Prelim Diff (Auto) Neut % (Auto) Lymph % (Auto) [place] % (Auto) Eos % (Auto) Baso % (Auto) Neut # (Auto) Lymph # (Auto) [place] # (Auto) Eos # (Auto) Baso # (Auto) WBC Differential Diff Scan Seg Neuts % (Manual) Band Neuts % (Manual) Lymphocytes % (Manual) Monocytes % (Manual) Basophils % (Manual) Plasma Cell % (Manual) Abs Neuts (Manual) Nucleated RBCs/100 WBC Differential Comment Toxic Granulation Platelet Estimate Platelet Morphology RBC Morphology Sodium Potassium Chloride Carbon Dioxide Anion Gap BUN Creatinine Estimated GFR POC Glucose 131 H 150 H 168 H Random Glucose Calcium Prot Corrected Calcium Phosphorus Magnesium Total Bilirubin AST ALT Alkaline Phosphatase Total Protein Albumin Urine Color Urine Clarity Urine pH Ur Specific [place] Urine Protein Urine Glucose (UA) Urine Ketones Urine Occult Blood Urine Nitrate Urine Bilirubin Urine Ictotest Urine Urobilinogen Ur Leukocyte Esterase Urine RBC Urine WBC Amorphous Sediment Urine Bacteria Granular Casts Urine Mucus Urine Yeast Micro UA Comment Ur Microscopic Review Urine Culture Comments 10/16/17 10/16/17 10/16/17 07:27 07:27 11:13 WBC 7.9 RBC 4.54 Hgb 14.1 Hct 43.8 MCV 96.4 MCH 31.0 MCHC 32.1 RDW 18.3 H Plt Count 42 L MPV 11.8 H Prelim Diff (Auto) Slide review pending Neut % (Auto) 92.6 H Lymph % (Auto) 3.2 L [place] % (Auto) 3.9 Eos % (Auto) 0.1 Baso % (Auto) 0.2 Neut # (Auto) 7.4 Lymph # (Auto) 0.3 L [place] # (Auto) 0.3 Eos # (Auto) 0.0 Baso # (Auto) 0.0 WBC Differential . Diff Scan Auto diff confirmed Seg Neuts % (Manual) Band Neuts % (Manual) Lymphocytes % (Manual) Monocytes % (Manual) Basophils % (Manual) Plasma Cell % (Manual) Abs Neuts (Manual) Nucleated RBCs/100 WBC Differential Comment . Toxic Granulation Platelet Estimate Low L Platelet Morphology Enlarged H RBC Morphology Sodium 149 H Potassium 5.1 Chloride 113 H Carbon Dioxide 29.3 Anion Gap 7 BUN 65 H Creatinine 0.91 Estimated GFR 80 L POC Glucose 149 H Random Glucose 135 H Calcium 7.1 L* Prot Corrected Calcium 8.3 L Phosphorus Magnesium Total Bilirubin 5.5 H AST 113 H ALT 172 H Alkaline Phosphatase 158 H Total Protein 4.9 L Albumin 1.5 L Urine Color Urine Clarity Urine pH Ur Specific [place] Urine Protein Urine Glucose (UA) Urine Ketones Urine Occult Blood Urine Nitrate Urine Bilirubin Urine Ictotest Urine Urobilinogen Ur Leukocyte Esterase Urine RBC Urine WBC Amorphous Sediment Urine Bacteria Granular Casts Urine Mucus Urine Yeast Micro UA Comment Ur Microscopic Review Urine Culture Comments 10/16/17 10/16/17 10/17/17 18:51 23:33 06:17 WBC 2.6 L D RBC 4.59 Hgb 14.2 Hct 44.6 MCV 97.1 MCH 30.9 MCHC 31.9 L RDW 17.8 H Plt Count 58 L D MPV 12.3 H Prelim Diff (Auto) Manual diff required Neut % (Auto) Lymph % (Auto) [place] % (Auto) Eos % (Auto) Baso % (Auto) Neut # (Auto) Lymph # (Auto) [place] # (Auto) Eos # (Auto) Baso # (Auto) WBC Differential Manual diff final Diff Scan Seg Neuts % (Manual) 57 Band Neuts % (Manual) 15 H Lymphocytes % (Manual) 7 L Monocytes % (Manual) 16 H Basophils % (Manual) 1 Plasma Cell % (Manual) 4 H Abs Neuts (Manual) 1.9 Nucleated RBCs/100 WBC 5 H Differential Comment . Toxic Granulation 2+ H Platelet Estimate Low L Platelet Morphology Enlarged H RBC Morphology Normal Sodium Potassium Chloride Carbon Dioxide Anion Gap BUN Creatinine Estimated GFR POC Glucose 115 H 122 H Random Glucose Calcium Prot Corrected Calcium Phosphorus Magnesium Total Bilirubin AST ALT Alkaline Phosphatase Total Protein Albumin Urine Color Urine Clarity Urine pH Ur Specific [place] Urine Protein Urine Glucose (UA) Urine Ketones Urine Occult Blood Urine Nitrate Urine Bilirubin Urine Ictotest Urine Urobilinogen Ur Leukocyte Esterase Urine RBC Urine WBC Amorphous Sediment Urine Bacteria Granular Casts Urine Mucus Urine Yeast Micro UA Comment Ur Microscopic Review Urine Culture Comments 10/17/17 10/17/17 10/17/17 06:17 06:20 07:50 WBC RBC Hgb Hct MCV MCH MCHC RDW Plt Count MPV Prelim Diff (Auto) Neut % (Auto) Lymph % (Auto) [place] % (Auto) Eos % (Auto) Baso % (Auto) Neut # (Auto) Lymph # (Auto) [place] # (Auto) Eos # (Auto) Baso # (Auto) WBC Differential Diff Scan Seg Neuts % (Manual) Band Neuts % (Manual) Lymphocytes % (Manual) Monocytes % (Manual) Basophils % (Manual) Plasma Cell % (Manual) Abs Neuts (Manual) Nucleated RBCs/100 WBC Differential Comment Toxic Granulation Platelet Estimate Platelet Morphology RBC Morphology Sodium 150 H Potassium 5.6 H Chloride 112 H Carbon Dioxide 29.9 Anion Gap 8 BUN 74 H Creatinine 1.14 Estimated GFR 62 L POC Glucose 131 H 126 H Random Glucose 129 H Calcium 7.3 L* Prot Corrected Calcium 8.3 L Phosphorus 3.1 Magnesium 3.0 H Total Bilirubin 4.5 H AST 79 H ALT 141 H Alkaline Phosphatase 157 H Total Protein 5.2 L Albumin 1.4 L Urine Color Urine Clarity Urine pH Ur Specific [place] Urine Protein Urine Glucose (UA) Urine Ketones Urine Occult Blood Urine Nitrate Urine Bilirubin Urine Ictotest Urine Urobilinogen Ur Leukocyte Esterase Urine RBC Urine WBC Amorphous Sediment Urine Bacteria Granular Casts Urine Mucus Urine Yeast Micro UA Comment Ur Microscopic Review Urine Culture Comments 10/17/17 10/17/17 10/17/17 08:09 11:20 12:29 WBC RBC Hgb Hct MCV MCH MCHC RDW Plt Count MPV Prelim Diff (Auto) Neut % (Auto) Lymph % (Auto) [place] % (Auto) Eos % (Auto) Baso % (Auto) Neut # (Auto) Lymph # (Auto) [place] # (Auto) Eos # (Auto) Baso # (Auto) WBC Differential Diff Scan Seg Neuts % (Manual) Band Neuts % (Manual) Lymphocytes % (Manual) Monocytes % (Manual) Basophils % (Manual) Plasma Cell % (Manual) Abs Neuts (Manual) Nucleated RBCs/100 WBC Differential Comment Toxic Granulation Platelet Estimate Platelet Morphology RBC Morphology Sodium Potassium Chloride Carbon Dioxide Anion Gap BUN Creatinine Estimated GFR POC Glucose 164 H 136 H Random Glucose Calcium Prot Corrected Calcium Phosphorus Magnesium Total Bilirubin AST ALT Alkaline Phosphatase Total Protein Albumin Urine Color Fern Urine Clarity Hazy H Urine pH 5.0 Ur Specific [place] 1.017 Urine Protein 30 H Urine Glucose (UA) Negative Urine Ketones Negative Urine Occult Blood Small H Urine Nitrate Negative Urine Bilirubin Negative Urine Ictotest Urine Urobilinogen 4 or greater Ur Leukocyte Esterase Negative Urine RBC 3 Urine WBC 3 Amorphous Sediment Rare H Urine Bacteria Rare H Granular Casts 11 Urine Mucus Few H Urine Yeast Few H Micro UA Comment Culture not ind Ur Microscopic Review Not Reportable Urine Culture Comments Culture not ind 10/17/17 13:35 WBC RBC Hgb Hct MCV MCH MCHC RDW Plt Count MPV Prelim Diff (Auto) Neut % (Auto) Lymph % (Auto) [place] % (Auto) Eos % (Auto) Baso % (Auto) Neut # (Auto) Lymph # (Auto) [place] # (Auto) Eos # (Auto) Baso # (Auto) WBC Differential Diff Scan Seg Neuts % (Manual) Band Neuts % (Manual) Lymphocytes % (Manual) Monocytes % (Manual) Basophils % (Manual) Plasma Cell % (Manual) Abs Neuts (Manual) Nucleated RBCs/100 WBC Differential Comment Toxic Granulation Platelet Estimate Platelet Morphology RBC Morphology Sodium Potassium 5.9 H Chloride Carbon Dioxide Anion Gap BUN Creatinine Estimated GFR POC Glucose Random Glucose Calcium Prot Corrected Calcium Phosphorus Magnesium Total Bilirubin AST ALT Alkaline Phosphatase Total Protein Albumin Urine Color Urine Clarity Urine pH Ur Specific [place] Urine Protein Urine Glucose (UA) Urine Ketones Urine Occult Blood Urine Nitrate Urine Bilirubin Urine Ictotest Urine Urobilinogen Ur Leukocyte Esterase Urine RBC Urine WBC Amorphous Sediment Urine Bacteria Granular Casts Urine Mucus Urine Yeast Micro UA Comment Ur Microscopic Review Urine Culture Comments Result Diagrams: 10/18/17 03:55 10/18/17 03:55 Microbiology: Microbiology 10/15/17 10:21 Gram Stain - Final Bronchial - Left Lower Lobe Bronchial Culture - Final Heavy growth normal respiratory lesli 10/12/17 09:25 Aerobic Blood Culture - Final Blood - Peripheral No growth in 5 days Anaerobic Blood Culture - Final QNS - See aerobic report. 10/12/17 09:31 Aerobic Blood Culture - Final Blood - Peripheral No growth in 5 days Anaerobic Blood Culture - Final QNS - See aerobic report. 10/09/17 14:40 Fungal Smear - Final Fluid - Pleural fluid No fungal elements seen Fungal Culture - Preliminary No growth in 1 week 10/12/17 20:10 Urine Culture - Final Clean Catch Urine Julia guilliermondii 10/12/17 20:10 Gram Stain - Final Sputum - Endotracheal Sputum Culture - Final Heavy growth normal respiratory lesli Imaging: Elbow X-Ray 10/03/17 18:31 CONCLUSION: There is discontinuity of the tip of a small olecranon spur without soft tissue swelling. Cannot exclude a fracture. Recommend correlation with clinical exam for point tenderness in this area. Hip X-Ray 10/03/17 18:31 CONCLUSION: No fracture seen. Lumbar Spine X-Ray 10/03/17 18:31 CONCLUSION: 60% anterior compression fracture of L2. No retropulsed fragments seen. Cervical Spine CT 10/03/17 18:35 CONCLUSION: 1. No evidence of compression deformity, fracture, or spondylolisthesis. 2. Advanced hypertrophic degenerative changes in the facet joints, more severe on the right. Abdomen/Pelvis CT 10/03/17 18:38 CONCLUSION: 1. Bilateral pleural effusions, right greater than left. 2. Nonobstructing 4 mm stone in the right renal collecting system. 3. 3.7 cm infrarenal abdominal aortic aneurysm. 4. Small fat-containing left inguinal hernia. Chest CT 10/03/17 18:38 CONCLUSION: 1. Large right and small left pleural effusion. 2. No fracture seen. No evidence of pneumothorax. Liver Ultrasound 10/04/17 00:00 CONCLUSION: 1. No evidence of gallstones or biliary tract obstruction. 2. There is a cyst along the upper pole the right kidney measuring 3 cm. 3. Bilateral pleural effusions. Head CT 10/06/17 00:00 CONCLUSION: 1. Stable evaluation the brain. 2. No evidence of acute infarct, hemorrhage, mass or edema. Head MRI 10/09/17 00:00 CONCLUSION: 1. No acute infarct, acute hemorrhage, midline shift or extra-axial fluid collections. 2. Mild cerebral atrophy. 3. 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 4. Minimal small vessel ischemic changes within the periventricular and subcortical white matter bilaterally. Chest X-Ray 10/16/17 00:00 CONCLUSION: 1. Increasing consolidation throughout the left lung. 2. Moderate left pleural effusion. 3. Nasogastric tube with tip in the mid to distal esophagus. This should be advanced. Procedures: 10/06/17: Intubation 10/06/17: Central line placement 10/15/17: Bronchoscopy Assessment and Plan - Disease Oriented Problem List (1) Pleural effusion (2) JAVON (acute kidney injury) (3) NSTEMI (non-ST elevated myocardial infarction) (4) Electrolyte imbalance (5) Hypertension - Symptom Scale (1) Confusion Comment: = MRI of the brain on 10/09/2017 showed no acute infarct, acute hemorrhage, midline shift or extra-axial fluid collections. Mild cerebral atrophy. 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 Minimal small vessel ischemic changes within the periventricular and subcortical white matter bilaterally. = EEG on 10/12/17 consistent with significant encephalopathy. (2) Dyspnea Comment: = 10/09/2017: Status post thoracentesis with 1.5L transudative fluid removed. Cultures negative. = Status post bronchoscopy yesterday 10/15/17. Bronchial culture from 10/15/17- negative. = Follow-up chest x-ray this morning 10/16/17 showing increasing consolidation throughout the left lung. Cardiomegaly. Moderate left pleural effusion. (3) Pain Comment: = Patient sedated on fentanyl drip. Multifactoral. Contributing factors anterior compression fracture of L2, infection, edema, poor circulation, invasive lines, immobility, bedbound status. Pertinent Non-Medical Issues: Psychosocial: Patient is originally from [place], [place]. He moved to [place], [place] in 1991. He was twice, twice. Patient has 2 children from his first marriage (Kayy Gould and Pablo), and one child (Paul) from his second marriage. He reportedly has had no contact with his children. His parents are . He has 5 brothers and one sister but apparently has not had any contact with him for many years. Patient graduated from high school; he had a variety of different jobs. Spiritual: Patient is unable to provide this information due to his altered mentation/confusion. Legal: Accurate in's requested, awaiting results Ethical issues impacting care: No known ethical issues impacting care at this time Important Contacts: Madina Acevedo, friend: [phone] Prognosis: Patient is a severely debilitated 82-year-old male with multiorgan failure and severe sepsis. Patient is critically ill and at very high risk for further decompensation and . Prognosis is very poor. Code Status: Alternative Code (INTUBATION ONLY) Plan: = ALTERNATE CODE-INTUBATION ONLY = Decision making: [employer] and google searches did not identify any potential family members. In accordance with the [place] statutes, it would be appropriated to proceed with patient's friend (Madina Acevedo) as the HCP decision maker. Healthcare proxy designation and acceptance form and notarized healthcare proxy of the dated were placed in the patient's chart and faxed to HIM to be scanned into the patient's EMR = GOALS REMAIN AGGRESSIVE UP TO THE POINT OF CARDIOPULMONARY RESUSCITATION = Spoke with Madina Acevedo (friend/HCP) yesterday 10/16/17. She is out of town and will be returning tomorrow 10/18/2017. She would like to meet with palliative care when she arrives at the hospital to discuss the process of compassionate withdrawal of artificial life support. = Symptom management: ++ Dyspnea: Patient remains intubated on mechanical vent status post bronchoscopy yesterday 10/15/17 for mucus plug. Bronchial culture, pleural fluid cultures and sputum cultures negative. Follow -up chest x-ray this morning 10/16/17 showing increasing consolidation throughout the left lung. Cardiomegaly. Moderate left pleural effusion. ++ Confusion: Acute encephalopathy likely multi-factorial. Contributing factors may include metabolic imbalance, sepsis, UTI, pain, constipation etc. Patient is sedated with fentanyl. CT of the brain on showed no evidence of acute infarct, hemorrhage, mass or edema. MRI of the brain on 10/09/2017 showed no acute infarct, acute hemorrhage, midline shift or extra-axial fluid collections. Mild cerebral atrophy. 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 Minimal small vessel ischemic changes within the periventricular and subcortical white matter bilaterally. EEG consistent with significant encephalopathy. ++ Pain:Patient sedated on fentanyl drip. Multifactoral. Contributing factors anterior compression fracture of L2, infection, edema, poor circulation, invasive lines, immobility, bedbound status. Monitor for signs and symptoms of nonverbal pain = Discussed patient with RNs (Paula) as well as Dr. Ruiz. = Palliative care will continue to follow this patient throughout his hospitalization to establish trust, assist with symptom management and clarification of medical treatment goals. Attestation Attestation: To help prompt me to consider important information that might be impacting today's encounter and assessment, information from prior notes written by myself or my colleagues may have been "brought forward" into today's note. My signature on this note, however, is an attestation that I personally performed the exam, history, and/or decision-making noted today, and, unless otherwise indicated, the interactions with patient, family, and staff as well as the review of records all occurred today. I also attest that the listed assessment and stated plan reflect my best clinical judgment today based on the combination of historical information, prior notes, and today's exam/ interactions. When time spent is documented, it refers only to time spent today by the signer, or if indicated, combined time spent today by collaborating physician/nurse practitioner.
[2017-10-17 19:44] LABS: Calcium 6.9 mg/dL (8.5-10.1); Carbon Dioxide 29.6 meq/L (21.0-32.0); Potassium 5.3 meq/L (3.5-5.1)
[2017-10-17 20:28] LABS: Total Protein 5.2 g/dL (6.4-8.2)
[2017-10-18] MEDS: Acetaminophen 325 MG Tablet NG/OG PRN ×2 (00:37→09:13)
[2017-10-18] MEDS: Insulin NovoLOG Aspart Correctional Sugar Inj SQ SCH ×3 (00:38→12:21)
[2017-10-18 04:29] LABS: Baso % (Auto) 0.9 % (0.0-2.0); Eos % (Auto) 0.4 % (0.0-4.0); Hematocrit 44.9 % (39.0-51.0); Hemoglobin 14.5 gm/dL (13.0-17.0); Lymph # (Auto) 0.3 th/mm3 (1.0-4.8); Lymph % (Auto) 28.3 % (9.0-44.0); Mean Corpuscular HGB Conc 32.2 % (32.0-36.0); Mean Corpuscular Volume 96.3 fL (80.0-100.0); Mean Platelet Volume 11.6 fL (7.0-11.0); Mono # (Auto) 0.2 th/mm3 (0.0-0.9); Mono % (Auto) 15.7 % (0.0-8.0); Neut # (Auto) 0.6 th/mm3 (1.8-7.7); Neut % (Auto) 54.7 % (16.0-70.0); Platelet Count 59 th/mm3 (150-450); Red Blood Count 4.66 mil/mm3 (4.50-5.90); Red Cell Distribution Width 17.7 % (11.6-17.2)
[2017-10-18 04:45] LABS: Albumin 1.3 g/dL (3.4-5.0); Calcium 6.9 mg/dL (8.5-10.1); Phosphorus 3.9 mg/dL (2.5-4.9); Potassium 5.6 meq/L (3.5-5.1); Total Protein 5.4 g/dL (6.4-8.2)
[2017-10-18] MEDS: Dextrose 5% in Water Inj 1,000 ML IV.CONT SCH (06:14)
[2017-10-18] MEDS: Aztreonam Inj 2 GM in Sodium Chloride 0.9% Inj 100 ML IV.SIG SCH ×2 (06:33→13:51)
[2017-10-18 08:18] LABS: Lymphocytes 37 % (9-44); Monocytes 12 % (0-8); Plasma Cells 4 % (0-0); Tallied Nucleated RBC 2 (0-0)
[2017-10-18] MEDS: Hypromellose 0.3% Opth Gel 10 GM Bottle EACH EYE SCH (09:09)
[2017-10-18] MEDS: MethylPREDNISolone Sod Succinate Inj 40 MG/ML Vial IV.PUSH SCH (09:10)
[2017-10-18] MEDS: Senna/Docusate Sodium 8.6/50 MG Tablet PO SCH (09:10)
--- NOTE | 2017-10-18 09:41 | P.PNCC ---
Subjective Subjective Remarks/Hospital Course: Patient is an elderly male with unknown past medical history who was found on the floor of his apartment with door open. Apparently neighbors checked on him and found him unresponsive on the floor. Patient was brought to the emergency department and underwent extensive workup to rule out trauma. CT of the head showed moderate to severe atrophy, CT of the chest showed moderate right-sided and small left effusion. 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 X-ray of his right elbow showed a possible olecranon spur discontinuity. Multiple lab abnormalities white count was 12.8 with 87% neutrophils platelet count 60 INR was 2.3. UA showed evidence of UTI, patient received a dose of cefepime for severe sepsis. Also his troponin was elevated at 6.8, lactic acid was 8.3 BUN 67 creatinine 2.71. Patient received 2 L normal saline boluses. Dr. Jaimes from cardiology was contacted for an STEMI. Due to poor mentation and multiorgan failure patient was deemed not a candidate for cardiac catheterization. Cannot use aspirin or heparin due to platelet count of 60,000 INR of 2.3. Other abnormal labs included transaminitis and elevated CPK. I evaluated the patient in the emergency department. He is severely encephalopathic appears critical, tachypneic but protecting airway. He is not able to say his name or mouth any words. He continues to move his head side to side but not communicative. I have added additional 2 L normal saline bolus, give 2 A of bicarb. Check ABG. Broad-spectrum antibiotics with vancomycin 1 dose and renally dosed Zosyn. Patient is very critically ill and has multiorgan failure, overall prognosis appears very poor. 10/04: This morning patient is not on any pressors. He is awake, agitated at times requiring restraints. He is saying incomprehensible words. T-max of 99.1. Urine output is minimal. 10/05: No events over the night. T-max of 98.4. Patient's mental status remains unchanged. Lethargic but easily arousable, not following any commands, saying incomprehensible words. Urine output of 525 mL's over the last 24 hours. Patient identified as Pablo Slater, 82-year-old gentleman. Still no family contact yet. 10/06: Over the night, patient developed worsening hypoxia with periods of apnea therefore he was intubated and now he is mechanically ventilated. This morning he is on no sedation, thrashing in bed, not following any commands. T-max of 99.9. Urine output is low, 200 mL's over the last 24 hours. Low blood pressure over the night noted, 1000 mL's of LR bolus given map remains borderline low normal. Morning chest x-ray reviewed, bibasilar infiltrates, right greater than left. ET tube is in good position. ROS -unobtainable due to patient's mental status SUBJECTIVE: 10/07: Low-grade temperatures overnight. Remains on norepinephrine drip at 2 mcg /min. Arousable on fentanyl drip at 100 mg an hour. No bowel movement. 10/08 Patient remains intubated and sedated with Fentanyl infusion. Afebrile. On Levophed 1 tu. Renal function is improving with Cr: 1.51 from 1.71. 10/09 No events overnight intubated and sedated with Fentanyl infusion on Levophed 2 mics. T:99.7. 10/10 Patient remains intubated and sedated with Fentanyl drip. s/p right sided thoracentesis yesterday with removal 1.5L (transudative fluid) On Levophed 2 mics. 10/11 : Remains sedated, orally intubated on mechanical ventilation. 10/12 Patient remains intubated and on Fentanyl infusion for sedation. T:101.5 last night. 10/13 Patient remains intubated and sedated, T 100.8 10/14 Patient remains intubated and sedated . Afebrile. 10/15 Patient is sedated with Fentanyl and intubated. Afebrile. 10/16 Patient remains intubated and sedated. T:99.8 last night. s/p bronch yesterday ( opacification of left hemithorax 2nd mucous plugs) CXR post bronch showed improved aeration of left lung 10/17 Patient is sedated with Fentanyl drip and intubated. Had T:102.3 this morning. 10/18 Patient remains sedated with Fentanyl infusion and intubated. T: 102.0, renal function is worsening with Cr: 1.35 from 1.29. For possible withdrawal care today Objective Vital Signs / I&O: Vital Signs 10/17/17 10:00 10/17/17 10:30 10/17/17 11:00 Temperature Pulse Rate 117 H 113 H 113 H Respiratory Rate 17 15 17 Blood Pressure 98/68 L 110/58 L 94/58 L Pulse Oximetry 97 97 96 10/17/17 11:30 10/17/17 12:00 10/17/17 12:30 Temperature Pulse Rate 110 H 112 H 108 H Respiratory Rate 17 15 18 Blood Pressure 92/59 L 113/57 L 95/58 L Pulse Oximetry 96 96 96 10/17/17 13:00 10/17/17 13:02 10/17/17 13:30 Temperature Pulse Rate 108 H 110 H 116 H Respiratory Rate 17 16 22 Blood Pressure 75/60 L 90/60 L 97/66 L Pulse Oximetry 95 95 96 10/17/17 14:00 10/17/17 14:01 10/17/17 14:30 Temperature Pulse Rate 114 H 113 H 119 H Respiratory Rate 17 17 19 Blood Pressure 112/65 111/59 L Pulse Oximetry 96 96 96 10/17/17 15:00 10/17/17 15:01 10/17/17 15:30 Temperature Pulse Rate 123 H 123 H 121 H Respiratory Rate 31 H 15 24 Blood Pressure 130/72 123/74 Pulse Oximetry 85 L 96 94 L 10/17/17 16:00 10/17/17 16:21 10/17/17 16:23 Temperature Pulse Rate 120 H 117 H Respiratory Rate 15 21 17 Blood Pressure 100/66 Pulse Oximetry 94 L 94 L 10/17/17 16:30 10/17/17 17:00 10/17/17 17:07 Temperature Pulse Rate 119 H 123 H 133 H Respiratory Rate 18 25 H 16 Blood Pressure 102/69 107/68 Pulse Oximetry 95 94 L 91 L 10/17/17 17:30 10/17/17 17:42 10/17/17 18:00 Temperature Pulse Rate 127 H 123 H 120 H Respiratory Rate 20 15 Blood Pressure 111/84 113/74 Pulse Oximetry 90 L 90 L 10/17/17 18:30 10/17/17 19:00 10/17/17 19:31 Temperature Pulse Rate 120 H 117 H 111 H Respiratory Rate 20 17 16 Blood Pressure 94/65 L 107/73 114/66 Pulse Oximetry 90 L 90 L 90 L 10/17/17 20:00 10/17/17 20:30 10/17/17 20:42 Temperature 100.1 F H Pulse Rate 114 H 109 H Respiratory Rate 17 16 15 Blood Pressure 108/73 109/75 Pulse Oximetry 90 L 90 L 100 10/17/17 20:44 10/17/17 21:00 10/17/17 21:30 Temperature Pulse Rate 116 H 112 H 110 H Respiratory Rate 15 16 16 Blood Pressure 106/68 94/68 L Pulse Oximetry 97 97 10/17/17 22:00 10/17/17 22:30 10/17/17 23:00 Temperature Pulse Rate 114 H 107 H 122 H Respiratory Rate 16 16 16 Blood Pressure 114/65 115/66 132/70 Pulse Oximetry 97 97 98 10/17/17 23:30 10/18/17 00:00 10/18/17 00:30 Temperature 102.0 F H Pulse Rate 118 H 116 H 122 H Respiratory Rate 18 18 17 Blood Pressure 102/66 102/69 122/70 Pulse Oximetry 98 98 97 10/18/17 00:49 10/18/17 01:00 10/18/17 01:30 Temperature Pulse Rate 122 H 126 H Respiratory Rate 21 17 17 Blood Pressure 124/70 109/71 Pulse Oximetry 98 97 97 10/18/17 02:00 10/18/17 02:30 10/18/17 03:00 Temperature Pulse Rate 117 H 117 H 117 H Respiratory Rate 18 17 19 Blood Pressure 125/71 96/74 L 99/65 L Pulse Oximetry 95 95 94 L 10/18/17 03:30 10/18/17 03:36 10/18/17 04:00 Temperature Pulse Rate 115 H 117 H 113 H Respiratory Rate 16 15 18 Blood Pressure 107/69 108/70 Pulse Oximetry 95 95 10/18/17 04:25 10/18/17 04:30 10/18/17 05:00 Temperature Pulse Rate 123 H 114 H Respiratory Rate 20 17 16 Blood Pressure 104/68 103/67 Pulse Oximetry 96 95 96 10/18/17 05:30 10/18/17 06:00 10/18/17 06:30 Temperature Pulse Rate 120 H 119 H 118 H Respiratory Rate 15 16 17 Blood Pressure 115/76 112/69 104/64 Pulse Oximetry 96 95 95 09/06/18 08:01 Temperature Pulse Rate Respiratory Rate 16 Blood Pressure Pulse Oximetry 97 Intake & Output 10/17/17 10/18/17 10/18/17 18:59 06:59 18:59 Intake Total 450 / 450 2110 / 2110 350 / 350 Output Total 405 / 405 450 / 450 Balance 45 / 45 1660 / 1660 350 / 350 Weight 76.8 kg Intake: IV 450 / 450 1350 / 1350 350 / 350 D5W Inj 1,000 ML @ 50 mls/hr IV 1000 / 1000 .CONT .Q20H JIGNA Rx#:[id number] Azactam Inj 2 GM In NS Inj 100 100 / 100 100 / 100 100 / 100 ML @ 200 mls/hr IV.SIG Q8H JIGNA Rx#:[id number] Mycamine Inj 100 MG In NS Inj 100 / 100 100 ML @ 100 mls/hr IV.SIG Q24H JIGNA Rx#:[id number] fentaNYL 10 mcg/mL Premix Drip 250 / 250 250 / 250 250 / 250 2,500 mcg In 250 ml @ 50 MCG/HR 5 mls/hr IV.SIG TITRATE PRN Rx #:[id number] Oral 0 / 0 Tube Feeding 60 / 60 Tube Irrigant 100 / 100 Water Bolus Amount 600 / 600 Output: Emesis 5 / 5 Urine Amount (Catheter) 400 / 400 450 / 450 Indwelling Urethral Catheter 400 / 400 450 / 450 Other: Date of Last Bowel Movement 10/17/17 10/17/17 # Incontinent Bowel Movements 2 1 # Emeses 1 # Oral Regurgitations 1 Result Diagrams: 10/18/17 03:55 10/18/17 03:55 Other Results: Laboratory Results - last 12 hr 10/18/17 10/18/17 10/18/17 00:24 03:55 03:55 WBC 1.0 L D RBC 4.66 Hgb 14.5 Hct 44.9 MCV 96.3 MCH 31.0 MCHC 32.2 RDW 17.7 H Plt Count 59 L MPV 11.6 H Prelim Diff (Auto) Slide review pending Neut % (Auto) 54.7 Lymph % (Auto) 28.3 [facility] % (Auto) 15.7 H Eos % (Auto) 0.4 Baso % (Auto) 0.9 Neut # (Auto) 0.6 L Lymph # (Auto) 0.[address] [facility] # (Auto) 0.2 Eos # (Auto) 0.0 Baso # (Auto) 0.0 WBC Differential Manual diff final Seg Neuts % (Manual) 46 Band Neuts % (Manual) 1 Lymphocytes % (Manual) 37 Monocytes % (Manual) 12 H Plasma Cell % (Manual) 4 H Abs Neuts (Manual) 0.5 L* Nucleated RBCs/100 WBC 2 H Differential Comment . Platelet Estimate Low L Platelet Morphology Enlarged H Sodium 146 H Potassium 5.6 H Chloride 110 H Carbon Dioxide 26.0 Anion Gap 10 BUN 91 H Creatinine 1.35 H Estimated GFR 51 L POC Glucose 200 H Random Glucose 149 H Calcium 6.9 L* Prot Corrected Calcium 7.8 L Phosphorus 3.9 Magnesium 3.0 H Total Bilirubin 4.8 H AST 97 H ALT 131 H Alkaline Phosphatase 115 Total Protein 5.4 L Albumin 1.3 L 10/18/17 05:53 WBC RBC Hgb Hct MCV MCH MCHC RDW Plt Count MPV Prelim Diff (Auto) Neut % (Auto) Lymph % (Auto) [facility] % (Auto) Eos % (Auto) Baso % (Auto) Neut # (Auto) Lymph # (Auto) [facility] # (Auto) Eos # (Auto) Baso # (Auto) WBC Differential Seg Neuts % (Manual) Band Neuts % (Manual) Lymphocytes % (Manual) Monocytes % (Manual) Plasma Cell % (Manual) Abs Neuts (Manual) Nucleated RBCs/100 WBC Differential Comment Platelet Estimate Platelet Morphology Sodium Potassium Chloride Carbon Dioxide Anion Gap BUN Creatinine Estimated GFR POC Glucose 168 H Random Glucose Calcium Prot Corrected Calcium Phosphorus Magnesium Total Bilirubin AST ALT Alkaline Phosphatase Total Protein Albumin Imaging: Elbow X-Ray 10/03/17 18:31 CONCLUSION: There is discontinuity of the tip of a small olecranon spur without soft tissue swelling. Cannot exclude a fracture. Recommend correlation with clinical exam for point tenderness in this area. Hip X-Ray 10/03/17 18:31 CONCLUSION: No fracture seen. Lumbar Spine X-Ray 10/03/17 18:31 CONCLUSION: 60% anterior compression fracture of L2. No retropulsed fragments seen. Cervical Spine CT 10/03/17 18:35 CONCLUSION: 1. No evidence of compression deformity, fracture, or spondylolisthesis. 2. Advanced hypertrophic degenerative changes in the facet joints, more severe on the right. Abdomen/Pelvis CT 10/03/17 18:38 CONCLUSION: 1. Bilateral pleural effusions, right greater than left. 2. Nonobstructing 4 mm stone in the right renal collecting system. 3. 3.7 cm infrarenal abdominal aortic aneurysm. 4. Small fat-containing left inguinal hernia. Chest CT 10/03/17 18:38 CONCLUSION: 1. Large right and small left pleural effusion. 2. No fracture seen. No evidence of pneumothorax. Liver Ultrasound 10/04/17 00:00 CONCLUSION: 1. No evidence of gallstones or biliary tract obstruction. 2. There is a cyst along the upper pole the right kidney measuring 3 cm. 3. Bilateral pleural effusions. Head CT 10/06/17 00:00 CONCLUSION: 1. Stable evaluation the brain. 2. No evidence of acute infarct, hemorrhage, mass or edema. . Head MRI 10/09/17 00:00 CONCLUSION: 1. No acute infarct, acute hemorrhage, midline shift or extra-axial fluid collections. 2. Mild cerebral atrophy. 3. 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 4. Minimal small vessel ischemic changes within the periventricular and subcortical white matter bilaterally. Chest X-Ray 10/16/17 00:00 CONCLUSION: 1. Increasing consolidation throughout the left lung. 2. Moderate left pleural effusion. 3. Nasogastric tube with tip in the mid to distal esophagus. This should be advanced. Objective Remarks: GENERAL: Elderly gentleman, poorly nourished, very deconditioned, ill-appearing , intubated HEENT: Pupils are equal and reactive. Sclerae anicteric. Neck supple without rigidity. Orally intubated. Neck veins are nondistended. No carotid bruit. CHEST: Scattered coarse breath sounds bilateral, decreased breath sounds at bases but overall improved air entry. No wheezes. CARDIOVASCULAR: Tachycardic without murmurs. ABDOMEN: Soft, nontender, nondistended. Bowel sounds are decreased. No hepatomegaly or splenomegaly appreciated. MUSCULOSKELETAL: Remains tepid. 2+ peripheral pitting edema. Pulses are present. Dusky discoloration of the plantar surface of the toes. NEUROLOGICAL: Patient is intubated, lethargic, arousable by opening eyes and withdrawing to bilateral upper and lower extremities but he does not follow any commands. Grimaces to pain. Pupils remain equal and reactive. Assessment and Plan - Assessment and Plan Plan: 1. VDRF 2. Acute encephalopathy, likely toxic metabolic -probably some degree of dementia at base, no improvement so far 3. s/p Acute NC -followed by cardiology 4. Sepsis 5. Lactic acidosis- resolved 6. Bibasilar pneumonia 7. Transaminitis -liver enzymes are slowly trending down 8. JAVON -improving 9. Hypernatremia -slowly improving 10. Thrombocytopenia, anemia 11. L2 compression deformity/acuity unknown Plan Neuro: On Fentanyl infusion for sedation. Daily sedation vacation. 10/06 CT brain: No evidence of acute infarct, hemorrhage, mass or edema. neuro is following- Dr. Benites MRI brain: No acute infarct, acute hemorrhage, midline shift or extra- axial fluid collections. Mild cerebral atrophy. 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 Minimal small vessel ischemic changes within the periventricular and subcortical white matter bilaterally. Pulm: Continue with vent support keep sats >92% Bronchodilators, ICU vent bundle. s/p right sided thoracentesis with removal 1.5L (Transudative fluid) SBT daily as ruth Bronch with BAL 10/15 showed thick mucous plugs obstructing office left main stem bronchus and LLL suctioned to clear BAL performed LLL. CXR post bronch showed much improved aeration of left lung. CV: Monitor HR and BP kep MAP>65mmHg, Lactic acid trending down 2.3 10/07 from 5.9 No aspirin or heparin due to worsening thrombocytopenia and coagulopathy No statin due to elevated liver enzymes : Monitor renal function, I/O's, electrolytes replacement as needed. Free water 300ml Q6, D5W@50ml/hr s/p IV regular insulin 6u , D50, Kayexalate 30gms yesterday. K 5.6 this morning will give additional Kayexalate 30gms x1 ID: Continue Levaquin, Azactam, Micafungin per ID, monitor for signs of infections ( Fever, WBC) 10/17 BC: GPC, add vanco BC, urine cx 10/03: No growth, Followup on fluid, sputum cx 10/09: NGTD 10/12 Blood, sputum cx: NGTD 10/12 Urine cx: Julia. 10/17 Blood and sputum cx: Pending GI: On Prevacid 30mg daily. Monitor LFT's, Hepatitis profile negative Liver ultrasound reviewed -no gallstones or biliary tract obstruction. On Glucerna 1.5 @ 50ml/hr GI is following re hyperbilirubinemia/elevated LFT's Heme: Monitor CBC, Coags, s/p Transfuse 1 packed leuko-reduced platelets, and 1 cryo due to worsening thrombocytopenia on 10/07 s/p Transfuse 1u FFP and 2u PLT 10/09 for thoracentesis Endo: SSI for glycemic control DVT prophylaxis with SCDs and GI prophylaxis with lansoprazole Palliative care is following plan for meeting with family to discuss possibility of transitioning to comfort care. Lines: Peripheral IV's Condition critical Prognosis poor. Time spent on critical care excluding procedures 35 minutes
[2017-10-18] MEDS ORDERED: Sodium Polystyrene Sulfonate/Sorbitol Liq 15 GM/60 ML UDC PO ONE (10:45)
[2017-10-18] MEDS: Levofloxacin 500 mg Premix Inj 500 MG/100 ML PIGGYBACK IV.SIG SCH (10:46)
[2017-10-18] MEDS ORDERED: Vancomycin Consult Pharmacy OTHER PRN (11:17)
[2017-10-18] MEDS ORDERED: Vancomycin Inj 1,000 MG in Sodium Chlor 0.9% Inj 250 ML IV.SIG ONE (12:00)
[2017-10-18] MEDS ORDERED: Vancomycin Inj 1,250 MG in Sodium Chlor 0.9% Inj 250 ML IV.SIG SCH (14:00)
[2017-10-18 16:02] VITALS: BP 117/75; PULSE 120; TEMP 99.8; O2SAT 97
[2017-10-18 16:11] VITALS: RESP 21
[2017-10-18] MEDS: fentaNYL 10 mcg/mL Premix Drip 2,500 MCG/250 ML BAG IV.SIG PRN (16:49)
[2017-10-18] MEDS ORDERED: Acetaminophen 650 MG Supp RECTAL PRN (16:58)
[2017-10-18] MEDS ORDERED: fentaNYL 10 mcg/mL Premix Drip 2,500 MCG/250 ML BAG IV.SIG PRN (16:58)
[2017-10-18] MEDS ORDERED: Hyoscyamine Inj 0.5 MG/ML Ampul IV.PUSH PRN (16:58)
[2017-10-18] MEDS ORDERED: Bisacodyl 10 MG Supp RECTAL PRN (16:58)
[2017-10-18] MEDS ORDERED: fentaNYL Citrate Inj 100 MCG/2 ML Ampul IV.PUSH ONE ×2 (16:58)
[2017-10-18] MEDS ORDERED: Hyoscyamine Inj 0.5 MG/ML Ampul IV.PUSH ONE (16:58)
--- NOTE | 2017-10-18 17:34 | P.PNPAL ---
Reason for Visit Reason for visit: a. To assist with evaluation and management of symptoms including: dyspnea, pain, confusion. b. To assist medical decision maker(s) with: better understanding of current medical conditions; weighing benefits/burdens of medical treatment options; making medical treatment decisions. Subjective Subjective/Interval History: This is an elderly male patient who presented to [facility] on 10/03/2017 as a Mario Schmidt after he was found in his apartment, unresponsive. He was subsequently admitted to the intensive care unit with multi organ failure, overall prognosis appeared poor. Overnight on 10/06/2017 patient developed worsening hypoxia with periods of apnea requiring intubation. Follow up visit for management of dyspnea, pain and confusion. Patient remains intubated on mechanical ventilation and sedated with fentanyl drip. = Temp 102.0. = Blood cultures from 10/17/17 growing coag negative staph. = Follow-up chest x-ray this morning 10/16/17 showing increasing consolidation throughout the left lung. Cardiomegaly. Moderate left pleural effusion. = Renal functioning deteriorating. Creatinine increased from 1.29 yesterday to 1.35 today 10/18/17 Patient's healthcare proxy decision-maker (Madina Acevedo) initially wanted to give the patient an opportunity to improve. She now feels we are only prolonging the patient's suffering and does not believe he would want ongoing extraordinary measures to keep him alive. She requests we compassionately withdraw artificial life support. We reviewed the process of withdrawing life support. Exhibits B and C were signed and placed on the patient's chart. Comfort medication orders were entered into the computer. Advance Directives Documented care wishes:: No known documented care wishes were completed. Objective Vital Signs: Vital Signs 10/17/17 17:30 10/17/17 17:42 10/17/17 18:00 Temperature Pulse Rate 127 H 123 H 120 H Respiratory Rate 20 15 Blood Pressure 111/84 113/74 Pulse Oximetry 90 L 90 L 10/17/17 18:30 10/17/17 19:00 10/17/17 19:31 Temperature Pulse Rate 120 H 117 H 111 H Respiratory Rate 20 17 16 Blood Pressure 94/65 L 107/73 114/66 Pulse Oximetry 90 L 90 L 90 L 10/17/17 20:00 10/17/17 20:30 10/17/17 20:42 Temperature 100.1 F H Pulse Rate 114 H 109 H Respiratory Rate 17 16 15 Blood Pressure 108/73 109/75 Pulse Oximetry 90 L 90 L 100 10/17/17 20:44 10/17/17 21:00 10/17/17 21:30 Temperature Pulse Rate 116 H 112 H 110 H Respiratory Rate 15 16 16 Blood Pressure 106/68 94/68 L Pulse Oximetry 97 97 10/17/17 22:00 10/17/17 22:30 10/17/17 23:00 Temperature Pulse Rate 114 H 107 H 122 H Respiratory Rate 16 16 16 Blood Pressure 114/65 115/66 132/70 Pulse Oximetry 97 97 98 10/17/17 23:30 10/18/17 00:00 10/18/17 00:30 Temperature 102.0 F H Pulse Rate 118 H 116 H 122 H Respiratory Rate 18 18 17 Blood Pressure 102/66 102/69 122/70 Pulse Oximetry 98 98 97 10/18/17 00:49 10/18/17 01:00 10/18/17 01:30 Temperature Pulse Rate 122 H 126 H Respiratory Rate 21 17 17 Blood Pressure 124/70 109/71 Pulse Oximetry 98 97 97 10/18/17 02:00 10/18/17 02:30 10/18/17 03:00 Temperature Pulse Rate 117 H 117 H 117 H Respiratory Rate 18 17 19 Blood Pressure 125/71 96/74 L 99/65 L Pulse Oximetry 95 95 94 L 10/18/17 03:30 10/18/17 03:36 10/18/17 04:00 Temperature Pulse Rate 115 H 117 H 113 H Respiratory Rate 16 15 18 Blood Pressure 107/69 108/70 Pulse Oximetry 95 95 10/18/17 04:25 10/18/17 04:30 10/18/17 05:00 Temperature Pulse Rate 123 H 114 H Respiratory Rate 20 17 16 Blood Pressure 104/68 103/67 Pulse Oximetry 96 95 96 10/18/17 05:30 10/18/17 06:00 10/18/17 06:30 Temperature Pulse Rate 120 H 119 H 118 H Respiratory Rate 15 16 17 Blood Pressure 115/76 112/69 104/64 Pulse Oximetry 96 95 95 10/18/17 08:00 10/18/17 08:01 10/18/17 10:00 Temperature 100.0 F H Pulse Rate 122 H 115 H Respiratory Rate 17 16 Blood Pressure 90/68 L Pulse Oximetry 97 97 10/18/17 11:25 10/18/17 12:00 10/18/17 14:00 Temperature 98.2 F Pulse Rate 125 H 124 H Respiratory Rate 22 31 H Blood Pressure 108/74 Pulse Oximetry 96 94 L 10/18/17 16:00 10/18/17 16:08 Temperature 99.8 F H Pulse Rate 120 H Respiratory Rate 18 21 Blood Pressure 117/75 Pulse Oximetry 97 97 Intake & Output 10/17/17 10/18/17 10/18/17 18:59 06:59 18:59 Intake Total 450 / 450 2110 / 2110 912.5 / 912.5 Output Total 405 / 405 450 / 450 Balance 45 / 45 1660 / 1660 912.5 / 912.5 Weight 76.8 kg Intake: IV 450 / 450 1350 / 1350 912.5 / 912.5 D5W Inj 1,000 ML @ 50 mls/hr IV 1000 / 1000 .CONT .Q20H JIGNA Rx#:[id number] Azactam Inj 2 GM In NS Inj 100 100 / 100 100 / 100 200 / 200 ML @ 200 mls/hr IV.SIG Q8H JIGNA Rx#:[id number] Levaquin 500 mg Premix Inj 500 100 / 100 mg In 100 ml @ 100 mls/hr IV. SIG Q48H JIGNA Rx#:[id number] Mycamine Inj 100 MG In NS Inj 100 / 100 100 / 100 100 ML @ 100 mls/hr IV.SIG Q24H JIGNA Rx#:[id number] Vancomycin Inj 1,250 MG In NS 262.5 / 262.5 Inj 250 ML @ 250 mls/hr IV.SIG Q24H JIGNA Rx#:[id number] fentaNYL 10 mcg/mL Premix Drip 250 / 250 250 / 250 250 / 250 2,500 mcg In 250 ml @ 50 MCG/HR 5 mls/hr IV.SIG TITRATE PRN Rx #:[id number] Oral 0 / 0 Tube Feeding 60 / 60 Tube Irrigant 100 / 100 Water Bolus Amount 600 / 600 Output: Emesis 5 / 5 Urine Amount (Catheter) 400 / 400 450 / 450 Indwelling Urethral Catheter 400 / 400 450 / 450 Other: Date of Last Bowel Movement 10/17/17 10/17/17 10/17/17 # Incontinent Bowel Movements 2 1 # Emeses 1 # Oral Regurgitations 1 Physical Exam: CONSTITUTIONAL/GENERAL: This is a frail, elderly male patient intubated and sedated on mechanical vent TUBES/LINES/DRAINS: PIV, Alberto catheter; ETT SKIN: Abrasions and bruising on upper and lower extremities bilaterally. Abrasions on scalp. Not diaphoretic. Jaundice. HEAD: Atraumatic. Normocephalic. EYES: Pupils equal and round. + Scleral icterus no injection or drainage. Fundi not examined. ENT: Nose without bleeding or purulent drainage. Dry mucous membranes. Poor dentition NECK: Trachea midline. Supple, nontender. No palpable thyroid enlargement or nodularity. CARDIOVASCULAR: Irregularly irregular without murmurs, gallops, or rubs. No JVD. RESPIRATORY/CHEST: Intubated on mechanical vent. Breath sounds diminished bilaterally. GASTROINTESTINAL: Abdomen soft, non-tender, nondistended. No hepato-splenomegaly , or palpable masses. No guarding. Bowel sounds hypoactive GENITOURINARY: Without palpable bladder distension. Alberto catheter draining fern colored urine MUSCULOSKELETAL: Feet are cold, purplish in color and mottled bilaterally. 2+ peripheral pitting edema. Muscle wasting in all extremities LYMPHATICS: No palpable cervical or supraclavicular adenopathy. NEUROLOGICAL: Moves upper extremities spontaneously. Grimaces to pain. Does not respond to questions or follow commands. PSYCHIATRIC: No obvious anxiety/depression. No apparent hallucinations or other psychotic thought process. Diagnostic Tests Laboratory: Laboratory Results - last 72 hr 10/15/17 10/16/17 10/16/17 23:53 04:31 06:11 WBC RBC Hgb Hct MCV MCH MCHC RDW Plt Count MPV Prelim Diff (Auto) Neut % (Auto) Lymph % (Auto) [place] % (Auto) Eos % (Auto) Baso % (Auto) Neut # (Auto) Lymph # (Auto) [place] # (Auto) Eos # (Auto) Baso # (Auto) WBC Differential Diff Scan Seg Neuts % (Manual) Band Neuts % (Manual) Lymphocytes % (Manual) Monocytes % (Manual) Basophils % (Manual) Plasma Cell % (Manual) Abs Neuts (Manual) Nucleated RBCs/100 WBC Differential Comment Toxic Granulation Platelet Estimate Platelet Morphology RBC Morphology Sodium Potassium Chloride Carbon Dioxide Anion Gap BUN Creatinine Estimated GFR POC Glucose 131 H 150 H 168 H Random Glucose Calcium Prot Corrected Calcium Phosphorus Magnesium Total Bilirubin AST ALT Alkaline Phosphatase Total Protein Albumin Urine Color Urine Clarity Urine pH Ur Specific [place] Urine Protein Urine Glucose (UA) Urine Ketones Urine Occult Blood Urine Nitrate Urine Bilirubin Urine Urobilinogen Ur Leukocyte Esterase Urine RBC Urine WBC Amorphous Sediment Urine Bacteria Granular Casts Urine Mucus Urine Yeast Micro UA Comment Ur Microscopic Review Urine Culture Comments 10/16/17 10/16/17 10/16/17 07:27 07:27 11:13 WBC 7.9 RBC 4.54 Hgb 14.1 Hct 43.8 MCV 96.4 MCH 31.0 MCHC 32.1 RDW 18.3 H Plt Count 42 L MPV 11.8 H Prelim Diff (Auto) Slide review pending Neut % (Auto) 92.6 H Lymph % (Auto) 3.2 L [place] % (Auto) 3.9 Eos % (Auto) 0.1 Baso % (Auto) 0.2 Neut # (Auto) 7.4 Lymph # (Auto) 0.3 L [place] # (Auto) 0.3 Eos # (Auto) 0.0 Baso # (Auto) 0.0 WBC Differential . Diff Scan Auto diff confirmed Seg Neuts % (Manual) Band Neuts % (Manual) Lymphocytes % (Manual) Monocytes % (Manual) Basophils % (Manual) Plasma Cell % (Manual) Abs Neuts (Manual) Nucleated RBCs/100 WBC Differential Comment . Toxic Granulation Platelet Estimate Low L Platelet Morphology Enlarged H RBC Morphology Sodium 149 H Potassium 5.1 Chloride 113 H Carbon Dioxide 29.3 Anion Gap 7 BUN 65 H Creatinine 0.91 Estimated GFR 80 L POC Glucose 149 H Random Glucose 135 H Calcium 7.1 L* Prot Corrected Calcium 8.3 L Phosphorus Magnesium Total Bilirubin 5.5 H AST 113 H ALT 172 H Alkaline Phosphatase 158 H Total Protein 4.9 L Albumin 1.5 L Urine Color Urine Clarity Urine pH Ur Specific [place] Urine Protein Urine Glucose (UA) Urine Ketones Urine Occult Blood Urine Nitrate Urine Bilirubin Urine Urobilinogen Ur Leukocyte Esterase Urine RBC Urine WBC Amorphous Sediment Urine Bacteria Granular Casts Urine Mucus Urine Yeast Micro UA Comment Ur Microscopic Review Urine Culture Comments 10/16/17 10/16/17 10/17/17 18:51 23:33 06:17 WBC 2.6 L D RBC 4.59 Hgb 14.2 Hct 44.6 MCV 97.1 MCH 30.9 MCHC 31.9 L RDW 17.8 H Plt Count 58 L D MPV 12.3 H Prelim Diff (Auto) Manual diff required Neut % (Auto) Lymph % (Auto) [place] % (Auto) Eos % (Auto) Baso % (Auto) Neut # (Auto) Lymph # (Auto) [place] # (Auto) Eos # (Auto) Baso # (Auto) WBC Differential Manual diff final Diff Scan Seg Neuts % (Manual) 57 Band Neuts % (Manual) 15 H Lymphocytes % (Manual) 7 L Monocytes % (Manual) 16 H Basophils % (Manual) 1 Plasma Cell % (Manual) 4 H Abs Neuts (Manual) 1.9 Nucleated RBCs/100 WBC 5 H Differential Comment . Toxic Granulation 2+ H Platelet Estimate Low L Platelet Morphology Enlarged H RBC Morphology Normal Sodium Potassium Chloride Carbon Dioxide Anion Gap BUN Creatinine Estimated GFR POC Glucose 115 H 122 H Random Glucose Calcium Prot Corrected Calcium Phosphorus Magnesium Total Bilirubin AST ALT Alkaline Phosphatase Total Protein Albumin Urine Color Urine Clarity Urine pH Ur Specific [place] Urine Protein Urine Glucose (UA) Urine Ketones Urine Occult Blood Urine Nitrate Urine Bilirubin Urine Urobilinogen Ur Leukocyte Esterase Urine RBC Urine WBC Amorphous Sediment Urine Bacteria Granular Casts Urine Mucus Urine Yeast Micro UA Comment Ur Microscopic Review Urine Culture Comments 10/17/17 10/17/17 10/17/17 06:17 06:20 07:50 WBC RBC Hgb Hct MCV MCH MCHC RDW Plt Count MPV Prelim Diff (Auto) Neut % (Auto) Lymph % (Auto) [place] % (Auto) Eos % (Auto) Baso % (Auto) Neut # (Auto) Lymph # (Auto) [place] # (Auto) Eos # (Auto) Baso # (Auto) WBC Differential Diff Scan Seg Neuts % (Manual) Band Neuts % (Manual) Lymphocytes % (Manual) Monocytes % (Manual) Basophils % (Manual) Plasma Cell % (Manual) Abs Neuts (Manual) Nucleated RBCs/100 WBC Differential Comment Toxic Granulation Platelet Estimate Platelet Morphology RBC Morphology Sodium 150 H Potassium 5.6 H Chloride 112 H Carbon Dioxide 29.9 Anion Gap 8 BUN 74 H Creatinine 1.14 Estimated GFR 62 L POC Glucose 131 H 126 H Random Glucose 129 H Calcium 7.3 L* Prot Corrected Calcium 8.3 L Phosphorus 3.1 Magnesium 3.0 H Total Bilirubin 4.5 H AST 79 H ALT 141 H Alkaline Phosphatase 157 H Total Protein 5.2 L Albumin 1.4 L Urine Color Urine Clarity Urine pH Ur Specific [place] Urine Protein Urine Glucose (UA) Urine Ketones Urine Occult Blood Urine Nitrate Urine Bilirubin Urine Urobilinogen Ur Leukocyte Esterase Urine RBC Urine WBC Amorphous Sediment Urine Bacteria Granular Casts Urine Mucus Urine Yeast Micro UA Comment Ur Microscopic Review Urine Culture Comments 10/17/17 10/17/17 10/17/17 08:09 11:20 12:29 WBC RBC Hgb Hct MCV MCH MCHC RDW Plt Count MPV Prelim Diff (Auto) Neut % (Auto) Lymph % (Auto) [place] % (Auto) Eos % (Auto) Baso % (Auto) Neut # (Auto) Lymph # (Auto) [place] # (Auto) Eos # (Auto) Baso # (Auto) WBC Differential Diff Scan Seg Neuts % (Manual) Band Neuts % (Manual) Lymphocytes % (Manual) Monocytes % (Manual) Basophils % (Manual) Plasma Cell % (Manual) Abs Neuts (Manual) Nucleated RBCs/100 WBC Differential Comment Toxic Granulation Platelet Estimate Platelet Morphology RBC Morphology Sodium Potassium Chloride Carbon Dioxide Anion Gap BUN Creatinine Estimated GFR POC Glucose 164 H 136 H Random Glucose Calcium Prot Corrected Calcium Phosphorus Magnesium Total Bilirubin AST ALT Alkaline Phosphatase Total Protein Albumin Urine Color Fern Urine Clarity Hazy H Urine pH 5.0 Ur Specific [place] 1.017 Urine Protein 30 H Urine Glucose (UA) Negative Urine Ketones Negative Urine Occult Blood Small H Urine Nitrate Negative Urine Bilirubin Negative Urine Urobilinogen 4 or greater Ur Leukocyte Esterase Negative Urine RBC 3 Urine WBC 3 Amorphous Sediment Rare H Urine Bacteria Rare H Granular Casts 11 Urine Mucus Few H Urine Yeast Few H Micro UA Comment Culture not ind Ur Microscopic Review Not Reportable Urine Culture Comments Culture not ind 10/17/17 10/17/17 10/17/17 13:35 17:09 18:03 WBC RBC Hgb Hct MCV MCH MCHC RDW Plt Count MPV Prelim Diff (Auto) Neut % (Auto) Lymph % (Auto) [place] % (Auto) Eos % (Auto) Baso % (Auto) Neut # (Auto) Lymph # (Auto) [place] # (Auto) Eos # (Auto) Baso # (Auto) WBC Differential Diff Scan Seg Neuts % (Manual) Band Neuts % (Manual) Lymphocytes % (Manual) Monocytes % (Manual) Basophils % (Manual) Plasma Cell % (Manual) Abs Neuts (Manual) Nucleated RBCs/100 WBC Differential Comment Toxic Granulation Platelet Estimate Platelet Morphology RBC Morphology Sodium Potassium 5.9 H Chloride Carbon Dioxide Anion Gap BUN Creatinine Estimated GFR POC Glucose 407 H 198 H Random Glucose Calcium Prot Corrected Calcium Phosphorus Magnesium Total Bilirubin AST ALT Alkaline Phosphatase Total Protein Albumin Urine Color Urine Clarity Urine pH Ur Specific [place] Urine Protein Urine Glucose (UA) Urine Ketones Urine Occult Blood Urine Nitrate Urine Bilirubin Urine Urobilinogen Ur Leukocyte Esterase Urine RBC Urine WBC Amorphous Sediment Urine Bacteria Granular Casts Urine Mucus Urine Yeast Micro UA Comment Ur Microscopic Review Urine Culture Comments 10/17/17 10/18/17 10/18/17 18:51 00:24 03:55 WBC 1.0 L D RBC 4.66 Hgb 14.5 Hct 44.9 MCV 96.3 MCH 31.0 MCHC 32.2 RDW 17.7 H Plt Count 59 L MPV 11.6 H Prelim Diff (Auto) Slide review pending Neut % (Auto) 54.7 Lymph % (Auto) 28.3 [place] % (Auto) 15.7 H Eos % (Auto) 0.4 Baso % (Auto) 0.9 Neut # (Auto) 0.6 L Lymph # (Auto) 0.3 L [place] # (Auto) 0.2 Eos # (Auto) 0.0 Baso # (Auto) 0.0 WBC Differential Manual diff final Diff Scan Seg Neuts % (Manual) 46 Band Neuts % (Manual) 1 Lymphocytes % (Manual) 37 Monocytes % (Manual) 12 H Basophils % (Manual) Plasma Cell % (Manual) 4 H Abs Neuts (Manual) 0.5 L* Nucleated RBCs/100 WBC 2 H Differential Comment . Toxic Granulation Platelet Estimate Low L Platelet Morphology Enlarged H RBC Morphology Sodium 149 H Potassium 5.3 H Chloride 110 H Carbon Dioxide 29.6 Anion Gap 9 BUN 82 H Creatinine 1.29 Estimated GFR 53 L POC Glucose 200 H Random Glucose 200 H Calcium 6.9 L* Prot Corrected Calcium 7.9 L Phosphorus Magnesium Total Bilirubin AST ALT Alkaline Phosphatase Total Protein 5.2 L Albumin Urine Color Urine Clarity Urine pH Ur Specific [place] Urine Protein Urine Glucose (UA) Urine Ketones Urine Occult Blood Urine Nitrate Urine Bilirubin Urine Urobilinogen Ur Leukocyte Esterase Urine RBC Urine WBC Amorphous Sediment Urine Bacteria Granular Casts Urine Mucus Urine Yeast Micro UA Comment Ur Microscopic Review Urine Culture Comments 10/18/17 10/18/17 10/18/17 03:55 05:53 12:12 WBC RBC Hgb Hct MCV MCH MCHC RDW Plt Count MPV Prelim Diff (Auto) Neut % (Auto) Lymph % (Auto) [place] % (Auto) Eos % (Auto) Baso % (Auto) Neut # (Auto) Lymph # (Auto) [place] # (Auto) Eos # (Auto) Baso # (Auto) WBC Differential Diff Scan Seg Neuts % (Manual) Band Neuts % (Manual) Lymphocytes % (Manual) Monocytes % (Manual) Basophils % (Manual) Plasma Cell % (Manual) Abs Neuts (Manual) Nucleated RBCs/100 WBC Differential Comment Toxic Granulation Platelet Estimate Platelet Morphology RBC Morphology Sodium 146 H Potassium 5.6 H Chloride 110 H Carbon Dioxide 26.0 Anion Gap 10 BUN 91 H Creatinine 1.35 H Estimated GFR 51 L POC Glucose 168 H 160 H Random Glucose 149 H Calcium 6.9 L* Prot Corrected Calcium 7.8 L Phosphorus 3.9 Magnesium 3.0 H Total Bilirubin 4.8 H AST 97 H ALT 131 H Alkaline Phosphatase 115 Total Protein 5.4 L Albumin 1.3 L Urine Color Urine Clarity Urine pH Ur Specific [place] Urine Protein Urine Glucose (UA) Urine Ketones Urine Occult Blood Urine Nitrate Urine Bilirubin Urine Urobilinogen Ur Leukocyte Esterase Urine RBC Urine WBC Amorphous Sediment Urine Bacteria Granular Casts Urine Mucus Urine Yeast Micro UA Comment Ur Microscopic Review Urine Culture Comments Result Diagrams: 10/18/17 03:55 10/18/17 03:55 Microbiology: Microbiology 10/17/17 08:09 Gram Stain - Final Sputum - Endotracheal Sputum Culture - Preliminary Heavy growth normal respiratory lesli at 24 hours 10/17/17 10:38 Aerobic Blood Culture - Preliminary Blood - Peripheral No growth in 1 day Anaerobic Blood Culture - Preliminary No growth in 1 day 10/17/17 09:09 Aerobic Blood Culture - Preliminary Blood - Peripheral Staphylococcus coag negative Anaerobic Blood Culture - Preliminary gram positive cocci 10/15/17 10:21 Gram Stain - Final Bronchial - Left Lower Lobe Bronchial Culture - Final Heavy growth normal respiratory lesli 10/12/17 09:25 Aerobic Blood Culture - Final Blood - Peripheral No growth in 5 days Anaerobic Blood Culture - Final QNS - See aerobic report. 10/12/17 09:31 Aerobic Blood Culture - Final Blood - Peripheral No growth in 5 days Anaerobic Blood Culture - Final QNS - See aerobic report. 10/09/17 14:40 Fungal Smear - Final Fluid - Pleural fluid No fungal elements seen Fungal Culture - Preliminary No growth in 1 week 10/12/17 20:10 Urine Culture - Final Clean Catch Urine Julia guilliermondii Imaging: Elbow X-Ray 10/03/17 18:31 CONCLUSION: There is discontinuity of the tip of a small olecranon spur without soft tissue swelling. Cannot exclude a fracture. Recommend correlation with clinical exam for point tenderness in this area. Hip X-Ray 10/03/17 18:31 CONCLUSION: No fracture seen. Lumbar Spine X-Ray 10/03/17 18:31 CONCLUSION: 60% anterior compression fracture of L2. No retropulsed fragments seen. Cervical Spine CT 10/03/17 18:35 CONCLUSION: 1. No evidence of compression deformity, fracture, or spondylolisthesis. 2. Advanced hypertrophic degenerative changes in the facet joints, more severe on the right. Abdomen/Pelvis CT 10/03/17 18:38 CONCLUSION: 1. Bilateral pleural effusions, right greater than left. 2. Nonobstructing 4 mm stone in the right renal collecting system. 3. 3.7 cm infrarenal abdominal aortic aneurysm. 4. Small fat-containing left inguinal hernia. Chest CT 10/03/17 18:38 CONCLUSION: 1. Large right and small left pleural effusion. 2. No fracture seen. No evidence of pneumothorax. Liver Ultrasound 10/04/17 00:00 CONCLUSION: 1. No evidence of gallstones or biliary tract obstruction. 2. There is a cyst along the upper pole the right kidney measuring 3 cm. 3. Bilateral pleural effusions. Head CT 10/06/17 00:00 CONCLUSION: 1. Stable evaluation the brain. 2. No evidence of acute infarct, hemorrhage, mass or edema. . Head MRI 10/09/17 00:00 CONCLUSION: 1. No acute infarct, acute hemorrhage, midline shift or extra-axial fluid collections. 2. Mild cerebral atrophy. 3. 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 4. Minimal small vessel ischemic changes within the periventricular and subcortical white matter bilaterally. Chest X-Ray 10/16/17 00:00 CONCLUSION: 1. Increasing consolidation throughout the left lung. 2. Moderate left pleural effusion. 3. Nasogastric tube with tip in the mid to distal esophagus. This should be advanced. Procedures: 10/06/17: Intubation 10/06/17: Central line placement 10/15/17: Bronchoscopy Assessment and Plan - Disease Oriented Problem List (1) Pleural effusion (2) JAVON (acute kidney injury) (3) NSTEMI (non-ST elevated myocardial infarction) (4) Electrolyte imbalance (5) Hypertension - Symptom Scale (1) Confusion Comment: = MRI of the brain on 10/09/2017 showed no acute infarct, acute hemorrhage, midline shift or extra-axial fluid collections. Mild cerebral atrophy. 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 Minimal small vessel ischemic changes within the periventricular and subcortical white matter bilaterally. = EEG on 10/12/17 consistent with significant encephalopathy. (2) Dyspnea Comment: = 10/09/2017: Status post thoracentesis with 1.5L transudative fluid removed. Cultures negative. = Status post bronchoscopy yesterday 10/15/17. Bronchial culture from 10/15/17- negative. = Follow-up chest x-ray this morning 10/16/17 showing increasing consolidation throughout the left lung. Cardiomegaly. Moderate left pleural effusion. (3) Pain Comment: = Patient sedated on fentanyl drip. Multifactoral. Contributing factors anterior compression fracture of L2, infection, edema, poor circulation, invasive lines, immobility, bedbound status. Pertinent Non-Medical Issues: Psychosocial: Patient is originally from [place], [place]. He moved to [place], [place] in 1991. He was twice, twice. Patient has 2 children from his first marriage (Kayy Gould and Pablo), and one child (Paul) from his second marriage. He reportedly has had no contact with his children. His parents are . He has 5 brothers and one sister but apparently has not had any contact with him for many years. Patient graduated from high school; he had a variety of different jobs. Spiritual: Patient is unable to provide this information due to his altered mentation/confusion. Legal: Accurate in's requested, awaiting results Ethical issues impacting care: No known ethical issues impacting care at this time Important Contacts: Madina Curtis, friend: [phone] Prognosis: Patient is a severely debilitated 82-year-old male with multiorgan failure and severe sepsis. Patient is critically ill and at very high risk for further decompensation and . Prognosis is very poor. Code Status: Alternative Code (INTUBATION ONLY) Plan: = NO CODE-DNR/DNI = Decision making: [employer] and google searches did not identify any potential family members. In accordance with the [place] statutes, it would be appropriated to proceed with patient's friend (Madina Acevedo) as the HCP decision maker. Healthcare proxy designation and acceptance form and notarized healthcare proxy of the dated were placed in the patient's chart and faxed to HIM to be scanned into the patient's EMR = Discussed with patient's bedside nurse as well as Dr. Ruiz = Patient's healthcare proxy decision-maker (Madina Acevedo) initially wanted to give the patient an opportunity to improve. She now feels we are only prolonging the patient's suffering and does not believe he would want ongoing extraordinary measures to keep him alive. She requests we compassionately withdraw artificial life support. = We reviewed the process of withdrawing life support. Exhibits B and C were signed and placed on the patient's chart. Comfort medication orders were entered into the computer. Attestation Attestation: To help prompt me to consider important information that might be impacting today's encounter and assessment, information from prior notes written by myself or my colleagues may have been "brought forward" into today's note. My signature on this note, however, is an attestation that I personally performed the exam, history, and/or decision-making noted today, and, unless otherwise indicated, the interactions with patient, family, and staff as well as the review of records all occurred today. I also attest that the listed assessment and stated plan reflect my best clinical judgment today based on the combination of historical information, prior notes, and today's exam/ interactions. When time spent is documented, it refers only to time spent today by the signer, or if indicated, combined time spent today by collaborating physician/nurse practitioner.
[2017-10-20] MEDS ORDERED: Etomidate Inj 40 MG/20 ML Vial IV.PUSH ONE (08:12)
[2017-10-20] MEDS ORDERED: Midazolam Inj 5 MG/ML 1 ML Vial ONE ×2 (08:12)
[2017-10-20] MEDS ORDERED: Propofol Inj 500 MG/50 ML Vial ONE (08:19)
[2017-10-21] MEDS ORDERED: Pharmacy Ordered Lab Info OTHER ONE (13:45)
--- NOTE | 2017-11-10 22:18 | MD ---
cc: Thomas Olsen MD DATE OF DISCHARGE: 10/18/2017 HOSPITAL COURSE: Patient is an 82-year-old male who was brought in to [facility] ED after he was found unresponsive on the floor by his neighbors. On arrival, he had a CT scan of the brain, which showed moderate to severe atrophy. 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 Also, he was found to have leukocytosis and was thrombocytopenic with a platelet count of 60 and coagulopathic with INR of 2.3. Also, he had elevated troponin 6.8 with a lactic acid of 8.3 and the patient was in renal failure with a creatinine of 2.71. Cardiology service was notified for a STEMI, and due to poor mentation and multiorgan failure, the patient deemed not a candidate for cardiac catheterization. He was seen by Dr. Brewster from Neurology service and had MRI of the brain, which showed no acute infarct, hemorrhage, midline shift or any fluid collections. Minimal small vessel ischemic changes with periventricular and subcortical white matter bilaterally noted. His encephalopathy was thought to be multifactorial secondary to metabolic issues and infection. The patient was intubated and placed on full mechanical ventilation. He underwent a right-sided thoracentesis with removal of 1.5 liters of transudative fluid. Also, he underwent bronchoscopy on 10/15/2017, which showed thick mucus plugs obstructing the orifice of the left mainstem bronchus and left lower lobe, which was suctioned to clear. Due to worsening thrombocytopenia and coagulopathy he was not a candidate for aspirin or any anticoagulation. The patient was placed on a free water for hypernatremia, and during his ICU course he was found hyperkalemic, which was treated with IV insulin, Kayexalate and D50. Also, the patient had positive blood culture for gram-positive cocci and urine culture positive for Julia. He was on broad spectrum antibiotics and was being followed by infectious disease service. The patient also was placed on Prevacid for GI prophylaxis and his hepatitis profile was negative. Also, ultrasound of the liver was obtained for elevated liver enzymes, which showed no gallstones or biliary tract obstruction. Nutritional support was provided with tube feeds and GI was following for elevated liver enzymes and hyperbilirubinemia. On 10/07/2017, he received 1 unit of platelet transfusion and cryo for worsening thrombocytopenia. In addition, he was given 1 unit of FFP and 2 units of platelets on 10/09/2017 prior to thoracentesis. Sliding scale insulin was provided for glycemic control. He was being followed by Palliative Care as well, and after discussion with family, decision was made to proceed with transitioning to comfort care and he on 10/18/2017. MD ISRAEL Pelletier/fani , 12:09 PM , 12:19 PM
== END 2017-10-18 17:51 | disposition expired ==
LOC: NEPC 18:14 → NEDA 22:22 → EDBD 22:22 → HIMC 10-04 01:35
PROVIDERS: ADMIT Internal Medicine; ATTEND Internal Medicine